=== PATIENT | female | born 1960 | race Caucasian/White ===

== ENCOUNTER → 2016-12-26 | Outpatient (CLI) | payer MEDICAID ==
[~2016-12-26] MED LIST: LINA5TAB PO; LORA0.5T PO; MAGN250T13 PO; METF500T4 PO; OMG1KC PO; PANT40TA2 PO; POTA-51 PO; SERT100T8 PO; SIMV40TA4 PO; TR1O15 TP
--- NOTE | 2016-12-26 12:37 | Diagnostic Imaging Report ---
INDICATION: Bilateral leg pain, right greater than left. Claudication symptoms. History of diabetes and tobacco use. TECHNIQUE: Segmental pulse pressures were performed of the upper and lower extremities. FINDINGS: Right brachial pressure: 154 mmHg Right ankle pressure: (DP) 179, ARANZA 1.11 Right ankle pressure: (PT) 190 mm Hg, ARANZA 1.18 Left brachial pressure: 161 mm Hg Left ankle pressure: (DP) 151, ARANZA 0.94 Left ankle pressure: (PT) 187 mm Hg, ARANZA 1.16 IMPRESSION: Ankle-brachial indices as above. Ankle-Brachial Index Diagnosis/Interpretation <=0.90 Peripheral Arterial Disease 0.91-0.99 Borderline 1.00-1.40 Normal >1.40 Concern for noncompressible arteries, (assoc with Diabetes Mellitus) Dictated by: Dictated on workstation # [id number]
== END ==
LOC: RAD 11:33
PROVIDERS: ATTEND Nurse Practitioner Family
DX: I73.9 Peripheral vascular disease, unspecified (principal); E11.9 Type 2 diabetes mellitus without complications; Z72.0 Tobacco use
CPT/HCPCS: 93922

== ENCOUNTER → 2017-04-21 | Outpatient (CLI) | payer MEDICARE, MEDICAID ==
--- NOTE | 2017-04-21 11:45 | Diagnostic Imaging Report ---
Bilateral diagnostic mammogram. INDICATION: Right breast pain. CAD is utilized. The current study was also evaluated with a Computer Aided Detection (CAD) system. No prior studies are available for comparison. FINDINGS: There is a 2.1 cm mass with suspicious calcifications and irregular borders seen in the posterior central aspect of the right breast in a slightly inferior and medial location. No other mass is identified in the right breast. No significantly enlarged axillary lymph nodes are seen. The left breast demonstrate scattered fibroglandular densities and benign-appearing calcifications or suspicious mass. IMPRESSION: A 2.1 cm mass in the posterior aspect of the right breast slightly inferior and medial to the central aspect, is highly suspicious for breast cancer. Ultrasound evaluation is pending. BI-RADS 0. ACR BI-RADS Category 0: Incomplete. (Needs additional imaging evaluation). Result letter will be mailed to the patient. Note: At least 10% of breast cancer is not imaged by mammography. Dictated by: Dictated on workstation # [id number]
--- NOTE | 2017-04-21 12:38 | Diagnostic Imaging Report ---
EXAMINATION: Right breast ultrasound. INDICATION: Right breast pain. Findings: The four-quadrant retroareolar region of the right breast were scanned. At 4:00 zone, 7 CM from the nipple there is an irregular hypoechoic mass with shadowing measuring 1.8 x 1.6 x 1.6 CM. It is associated with increased vascularity. This is highly suspicious for breast cancer. The 6:00 position demonstrates a simple cyst measuring 9 mm in length. No other breast mass is identified in the 4 quadrants. In the right axilla there are 2 slightly enlarged lymph nodes, the largest one measures 2 x 0.8 x 0.8 CM. These still have fatty hilum and etiology is uncertain. IMPRESSION: 1. A 1.8 cm right breast mass at 4:00 zone, 7 cm from the nipple highly suspicious for breast cancer. 2. Mildly enlarged nonspecific right axillary lymph nodes seen. 3. Ultrasound-guided biopsy of the right breast mass and of the enlarged right axillary lymph nodes are recommended. The findings and recommendations were discussed with the patient personally just before this dictation. BI-RADS 5 ACR BI-RADS Category 5: Highly suggestive of malignancy. Result letter will be mailed to the patient. Note: At least 10% of breast cancer is not imaged by mammography. Report was faxed to office of Joie Duran by nadira at 12:40 PM. Dictated by: Dictated on workstation # [id number]
== END ==
LOC: RAD 10:44
PROVIDERS: ATTEND Nurse Practitioner Family
DX: Z12.31 Encounter for screening mammogram for malignant neoplasm of breast (principal); N63 Unspecified lump in breast
CPT/HCPCS: 76641; 77066

== ENCOUNTER → 2017-04-24 | Outpatient (CLI) | payer MEDICARE, MEDICAID ==
[~2017-04-24] VITALS: Ht 160 cm; Wt 63.0 kg
[~2017-04-24] MED LIST changes: +LIDOCAINE 1% INJ 20 ML (XYLOCAINE) VIAL INJ ONE; +LIDOCAINE 1% INJ 20 ML (XYLOCAINE) VIAL ONE
[2017-04-24 09:50] VITALS: BP 121/78
[2017-04-24 10:40] VITALS: BP 120/72
--- NOTE | 2017-04-24 11:24 | Diagnostic Imaging Report ---
EXAMINATION: Ultrasound-guided biopsy of a breast mass. A metallic clip placed to leann biopsy site. INDICATION: right breast mass. CONSENT: Informed consent was obtained from the patient. The risks, benefits, potential complications and alternatives were reviewed and all questions answered to the patient's satisfaction. FINDINGS: Ultrasound images demonstrate a 4:00 right breast mass. PROCEDURE: After sterile preparation and draping, 1% lidocaine was utilized for local anesthesia. A 13-gauge guide needle was introduced under live ultrasound guidance to the level of the lesion. Good needle position was documented with ultrasound images. 14-gauge biopsy needle was utilized and core biopsies were performed. Multiple samples were obtained and sent to pathology. A metallic clip was placed to leann the site of the biopsy. A subsequent mammogram is performed and confirms the proper positioning of the clip. The patient tolerated the procedure well with no immediate complications. IMPRESSION: Successful ultrasound-guided core biopsy of 4:00 right breast mass. Dictated by: Dictated on workstation # [id number]
--- NOTE | 2017-04-24 11:27 | Diagnostic Imaging Report ---
EXAMINATION: US-guided core biopsy-right axilla, with a marking clip placement. INDICATION: Right axilla lymphadenopathy. Current history and physical and other medical records are reviewed prior to the procedure. CONSENT: Informed consent was obtained from the patient. The risks, benefits, potential complications and alternatives were reviewed and all questions answered to the patient's satisfaction. The patient's vital signs, cardiac rhythm, and pulse oximetry with observed throughout the procedure by qualified nursing personnel. Sedation/medications: none. FINDINGS: Mildly enlarged right axilla lymph nodes. PROCEDURE: After maximal sterile barrier technique preparation and draping, 1% lidocaine was utilized for local anesthesia. With the patient in supine position, and via anterior approach, a 17-gauge guide needle is introduced into the right axillary lymph node under live ultrasound guidance. After confirming adequate positioning with saved ultrasound images, multiple 18 gauge core biopsy specimens were obtained. Marking clip was and the right axillary lymph node site. The patient tolerated the procedure well with no immediate complications. IMPRESSION: Successful US-guided core biopsy of right axilla mildly enlarged lymph node. Dictated by: Dictated on workstation # [id number]
--- NOTE | 2017-04-24 21:15 | Diagnostic Imaging Report ---
EXAM: Right CC and lateral projection mammograms are performed. INDICATION: Documentation of clip positioning after ultrasound-guided biopsy of right breast mass and axillary lesion. FINDINGS / IMPRESSION: There is a biopsy clip well placed within the slightly medial and inferior posterior right breast mass. There is no clip seen in the axillary region which may indicate failure of clip deployment near the axillary lymph node or potentially relates to location of the lymph node outside the field of view. Pathology results are pending. Dictated by: Dictated on workstation # [id number]
== END ==
LOC: RAD 09:31
PROVIDERS: ATTEND Nurse Practitioner Family
DX: R92.8 Other abnormal and inconclusive findings on diagnostic imaging of breast (principal)
CPT/HCPCS: 19083; 19084

== ENCOUNTER → 2018-10-29 | Outpatient (CLI) | payer MEDICAID, MEDICARE ==
[~2018-10-29] MED LIST changes: +GADOBUTROL 7.5 MMOL/7.5 ML (GADAVIST) VIAL IV ONE; -LIDOCAINE 1% INJ 20 ML (XYLOCAINE) VIAL INJ ONE; -LIDOCAINE 1% INJ 20 ML (XYLOCAINE) VIAL ONE; +METF-397 PO; -METF500T4 PO
--- NOTE | 2018-10-29 10:07 | Diagnostic Imaging Report ---
PROCEDURE: MR imaging of the brain with and without contrast. TECHNIQUE: Multiplanar, multisequence MR imaging of the brain was performed with and without contrast. INDICATION: Memory loss. History of breast cancer. COMPARISON: None. FINDINGS: No abnormal intracranial signal or enhancement. Mild generalized cerebral and cerebellar parenchymal volume loss is age appropriate. No restricted water diffusion or hemosiderin deposition. Normal morphology including the major midline structures, sella, posterior fossa and cerebellar pontine angle. No hydrocephalus or extra-axial fluid collections. Normal intracranial flow voids. The orbits are unremarkable on this nondedicated exam. Fluid throughout the mastoids, right greater than left. The paranasal sinuses are clear. Normal bone marrow signal. IMPRESSION: 1. No acute intracranial MRI findings. 2. Age-appropriate mild parenchymal volume loss. 3. Bilateral mastoid effusions, right greater than left. Dictated by: Dictated on workstation # [id number]
== END ==
LOC: RAD 07:34
PROVIDERS: ATTEND Nurse Practitioner Family
DX: H74.8X3 Other specified disorders of middle ear and mastoid, bilateral (principal); G93.89 Other specified disorders of brain; R41.3 Other amnesia; Z85.3 Personal history of malignant neoplasm of breast
CPT/HCPCS: 70553

== ENCOUNTER 2020-04-30 13:25 | Emergency (ER) | payer MEDICARE ==
[~2020-04-30] VITALS: Ht 172 cm; Wt 61.0 kg
[~2020-04-30 13:25] MED LIST changes: -GADOBUTROL 7.5 MMOL/7.5 ML (GADAVIST) VIAL IV ONE; +SIMV40TA25 PO; -SIMV40TA4 PO
--- NOTE | 2020-04-30 13:59 | ED General ---
General Chief Complaint: Respiratory Problems Stated Complaint: SOA Nursing Triage Note: PT STATES HAVING COPD AND IS JUST HAVING AN EPISOPE, SOB FOR A WEEK WORSE THE LAST COUPLE DAYS Nursing Sepsis Screen: No Definite Risk Source of Information: Patient Exam Limitations: No Limitations History of Present Illness Date Seen by Provider: Apr 30, 2020 Time Seen by Provider: 13:48 Initial Comments Here with intermittent worsening shortness of breath over the last 2 weeks and worse over the last few days. Does have history of COPD and occasional exacerbations. Denies fever or chills. Denies nausea or vomiting. Has had 2 trips outside the house in the last 2 weeks including one to [place] in one to [place]. She does not wear a mask in the community because she did not know she could wear that over her oxygen tubing. Does not note any specific contact with COVID-19. Timing/Duration: 1 Week, Changing Over Time, Getting Worse Severity: Moderate Associated Systoms: No Chest Pain; Cough; No Fever/Chills, No Nausea/Vomiting; Shortness of Air, Weakness Allergies and Home Medications Allergies Coded Allergies: No Known Drug Allergies (Unverified , 06/12/15) Home Medications Linagliptin 5 Mg Tablet, 5 MG PO DAILY, (Reported) Lorazepam 0.5 Mg Tablet, 0.5 MG PO DAILY, (Reported) Magnesium Oxide 250 Mg Tablet, 250 MG PO DAILY, (Reported) Metformin HCl 500 Mg Tablet, 500 MG PO BID, (Reported) [place] 3 Polyunsat Fatty Acids 1,000 Mg Cap, 1,000 MG PO DAILY, (Reported) Pantoprazole Sodium 40 Mg Tablet.dr, 40 MG PO DAILY Prescribed by: ELADIA HOLLAND on 08/20/15 960 Potassium Chloride 20 Meq Tablet.er, 20 MEQ PO DAILY, (Reported) Sertraline HCl 100 Mg Tablet, 100 MG PO DAILY, (Reported) Simvastatin 40 Mg Tablet, 40 MG PO DAILY, (Reported) Patient Home Medication List Home Medication List Reviewed: Yes Review of Systems Review of Systems Constitutional: see HPI; No chills, No fever; malaise, weakness EENTM: nose congestion; No throat pain Respiratory: cough, dyspnea on exertion, short of breath, wheezing Cardiovascular: chest pain (burning in her chest after coughing); No palpitations Gastrointestinal: No abdominal pain, No nausea, No vomiting Genitourinary: no symptoms reported Musculoskeletal: No muscle pain; muscle weakness Skin: no symptoms reported All Other Systems Reviewed Negative Unless Noted: Yes Past Ksdsahb-Wtnzze-Wetfpn Hx Past Med/Social Hx: Reviewed Nursing Past Med/Soc Hx Patient Social History Alcohol Use: Denies Use Recreational Drug Use: No Smoking Status: Current Everyday Smoker Type Used: Cigarettes Recent Foreign Travel: No Contact w/Someone Who Travel: No Recent Infectious Disease Expo: No Recent Hopitalizations: No Physical Abuse: No Sexual Abuse: No Mistreated: No Fear: No Past Medical History Surgeries: Yes (HERNIA, BI LAT MASECTOMY) Abdominal, Breast, Tubal Ligation Respiratory: Yes COPD Cardiac: Yes High Cholesterol, Hypertension, Syncope Neurological: Yes (VASOVAGAL SYNCOPE VS SEIZURE) Headaches /Migraines 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, 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 0.0oz. [id number]; 20.00 BMI Method:Stated General Appearance: No Apparent Distress, WD/WN HEENT: PERRL/EOMI, Pharynx Normal Neck: Non Tender, Supple Respiratory: Decreased Breath Sounds, Expiration, Wheezing Cardiovascular: Regular Rate, Rhythm, No Murmur Back: Normal Inspection, No CVA Tenderness, No Vertebral Tenderness Extremity: Normal Range of Motion, Non Tender Neurologic/Psychiatric: Alert, Oriented x3 Skin: normal color, warm/dry Focused Exam Lactate Level 04/30/20 14:00: Lactic Acid Level 1.53 Lactic Acid Level Laboratory Tests Test 04/30/20 14:00 Lactic Acid Level 1.53 MMOL/L (0.50-2.00) Progress/Results/Core Measures Suspected Sepsis Recent Fever Within 48 Hours: No Infection Criteria Present: None New/Unexplained Altered Menta: No Sepsis Screen: No Definite Risk SIRS Temperature: Pulse: 63 Respiratory Rate: 22 Laboratory Tests 04/30/20 14:00: White Blood Count 12.5H Blood Pressure 146 /65 Mean: 92 04/30/20 14:00: Lactic Acid Level 1.53 Laboratory Tests 04/30/20 14:00: Creatinine 0.79, INR Comment 1.0, Platelet Count 275, Total Bilirubin 0.3 Results/Orders Lab Results Laboratory Tests Test 04/30/20 14:00 Range/Units White Blood Count 12.5 H 4.3-11.0 10^3/uL Red Blood Count 4.90 3.80-5.11 10^6/uL Hemoglobin 13.3 11.5-16.0 g/dL Hematocrit 42 35-52 % Mean Corpuscular Volume 85 80-99 fL Mean Corpuscular Hemoglobin 27 25-34 pg Mean Corpuscular Hemoglobin Concent 32 32-36 g/dL Red Cell Distribution Width 14.2 10.0-14.5 % Platelet Count 275 130-400 10^3/uL Mean Platelet Volume 11.2 9.0-12.2 fL Immature Granulocyte % (Auto) 0 % Neutrophils (%) (Auto) 62 42-75 % Lymphocytes (%) (Auto) 28 12-44 % Monocytes (%) (Auto) 7 0-12 % Eosinophils (%) (Auto) 2 0-10 % Basophils (%) (Auto) 0 0-10 % Neutrophils # (Auto) 7.7 1.8-7.8 10^3/uL Lymphocytes # (Auto) 3.5 1.0-4.0 10^3/uL Monocytes # (Auto) 0.9 0.0-1.0 10^3/uL Eosinophils # (Auto) 0.3 0.0-0.3 10^3/uL Basophils # (Auto) 0.1 0.0-0.1 10^3/uL Immature Granulocyte # (Auto) 0.0 0.0-0.1 10^3/uL Erythrocyte Sedimentation Rate 17 0-30 MM/HR Prothrombin Time 13.2 12.2-14.7 SEC INR Comment 1.0 0.8-1.4 Activated Partial Thromboplast Time 28 24-35 SEC D-Dimer < 0.27 0.00-0.49 UG/ML Sodium Level 140 135-145 MMOL/L Potassium Level 4.2 3.6-5.0 MMOL/L Chloride Level 98 98-107 MMOL/L Carbon Dioxide Level 30 21-32 MMOL/L Anion Gap 12 5-14 MMOL/L Blood Urea Nitrogen 13 7-18 MG/DL Creatinine 0.79 0.60-1.30 MG/DL Estimat Glomerular Filtration Rate > 60 BUN/Creatinine Ratio 16 Glucose Level 72 70-105 MG/DL Lactic Acid Level 1.53 0.50-2.00 MMOL/L Calcium Level 10.2 H 8.5-10.1 MG/DL Corrected Calcium 8.5-10.1 MG/DL Total Bilirubin 0.3 0.1-1.0 MG/DL Aspartate Amino Transf (AST/SGOT) 19 5-34 U/L Alanine Aminotransferase (ALT/SGPT) 25 0-55 U/L Alkaline Phosphatase 66 40-136 U/L C-Reactive Protein High Sensitivity 0.13 0.00-0.50 MG/DL Total Protein 8.1 6.4-8.2 GM/DL Albumin 4.8 H 3.2-4.5 GM/DL Procalcitonin 0.02 <0.10 NG/ML My Orders Orders - JORDON REGALADO MD Cbc With Automated Diff (04/30/20 14:00) Comprehensive Metabolic Panel (04/30/20 14:00) Blood Culture (04/30/20 14:00) Sputum Culture (04/30/20 14:00) Urinalysis (04/30/20 14:00) Urine Culture (04/30/20 14:00) Protime With Inr (04/30/20:00) Partial Thromboplastin Time (04/30/20 14:00) Chest 1 View, Ap/Pa Only (04/30/20 14:00) Ed Iv/Invasive Line Start (04/30/20 14:00) Vital Signs Adult Sepsis Patie Q15M (04/30/20 14:00) O2 (04/30/20 14:00) Remove Rings In Anticipation O (04/30/20 14:00) Lactic Acid Analyzer (04/30/20 14:00) Fibrin Degradation Products (04/30/20 14:00) Procalcitonin (Pct) (04/30/20 14:00) Hs C Reactive Protein (04/30/20 14:00) Erythrocyte Sedimentation Rate (04/30/20 14:00) Albuterol Inhaler (Ventolin Hfa) (04/30/20 14:00) Lactated Ringers (Lr 1000 Ml Iv Solution (04/30/20 14:02) Prednisone Tablet (Deltasone Tablet) (04/30/20 15:15) Medications Given in ED Current Medications Medications Dose Ordered Sig/Patrick Route Start Time Stop Time Status Last Admin Dose Admin Lactated Ringer's 1,000 ml @ 0 mls/hr Q0M ONCE IV 04/30/20 14:02 04/30/20 14:03 DC 04/30/20 14:09 1,000 MLS/HR Vital Signs/I&O 04/30/20 04/30/20 13:35 13:55 Temp 36.1 Pulse 63 Resp 22 B/P (MAP) 146/65 (92) Pulse Ox 95 95 O2 Delivery Nasal Cannula Nasal Cannula O2 Flow Rate 3.00 3.00 Capillary Refill : Less Than 3 Seconds Blood Pressure Mean: 92 Progress Note : Progress Note Seen and evaluated. IV, labs, chest x-ray, UA, blood cultures and lactic acid ordered. Albuterol inhaler 4 puffs via chamber ordered. LR 1 L bolus. Monitor patient. 1508: Improved after albuterol. No acute findings on xray. No i ndication of COVID-19. Prednisone 40 mg PO ordered.. Discharge home with return precautions. Patient verbalized understanding of instructions and agreement with plan. Departure Impression Primary Impression: COPD with acute exacerbation Disposition: 01 HOME, SELF-CARE Condition: Improved Departure-Patient Inst. Decision time for Depature: 15:13 Referrals: JEFFERSON AQUINO (PCP/Family) Primary Care Physician Patient Instructions: Chronic Obstructive Pulmonary Disease (COPD) (DC) Add. Discharge Instructions: All discharge instructions reviewed with patient and/or family. Voiced understanding. Take medications as directed. Follow up with your doctor in a few days for recheck. Return for worse pain, fever, vomiting, breathing problems or other concerns as needed. Scripts Prednisone (Prednisone) 20 Mg Tab 40 MG PO DAILY, #8 TAB 0 Refills Prov: JORDON REGALADO MD 04/30/20 JORDON REGALADO MD Apr 30, 2020 13:59
[2020-04-30] MEDS ORDERED: RT-ALBUTEROL INHALER HFA (VENTOLIN HFA) 18 GM IH SCH (14:00)
[2020-04-30] MEDS ORDERED: LACTATED RINGERS 1,000 ML IV ONE (14:02)
[2020-04-30 14:15] LABS: BASOPHILS # (AUTO) 0.1 10^3/uL (0.0-0.1); BASOPHILS % (AUTO) 0 % (0-10); EOSINOPHILS # (AUTO) 0.3 10^3/uL (0.0-0.3); EOSINOPHILS % (AUTO) 2 % (0-10); HEMATOCRIT 42 % (35-52); HEMOGLOBIN 13.3 g/dL (11.5-16.0); LYMPHOCYTES # (AUTO) 3.5 10^3/uL (1.0-4.0); LYMPHOCYTES % (AUTO) 28 % (12-44); MEAN CORPUSCULAR HEMOGLOBIN 27 pg (25-34); MEAN CORPUSCULAR HGB CONC 32 g/dL (32-36); MEAN CORPUSCULAR VOLUME 85 fL (80-99); MEAN PLATELET VOLUME 11.2 fL (9.0-12.2); MONOCYTES # (AUTO) 0.9 10^3/uL (0.0-1.0); MONOCYTES % (AUTO) 7 % (0-12); NEUTROPHILS # (AUTO) 7.7 10^3/uL (1.8-7.8); NEUTROPHILS % (AUTO) 62 % (42-75); PLATELET COUNT 275 10^3/uL (130-400); WHITE BLOOD COUNT 12.5 10^3/uL (4.3-11.0)
[2020-04-30 14:26] LABS: ALBUMIN 4.8 GM/DL (3.2-4.5); CHLORIDE 98 MMOL/L (98-107); POTASSIUM 4.2 MMOL/L (3.6-5.0); SODIUM 140 MMOL/L (135-145)
[2020-04-30 14:27] LABS: CALCIUM 10.2 MG/DL (8.5-10.1)
[2020-04-30 14:28] LABS: GLUCOSE 72 MG/DL (70-105)
[2020-04-30 14:29] LABS: TOTAL PROTEIN 8.1 GM/DL (6.4-8.2)
[2020-04-30 14:30] LABS: BILIRUBIN,TOTAL 0.3 MG/DL (0.1-1.0); CARBON DIOXIDE 30 MMOL/L (21-32)
[2020-04-30 14:32] LABS: ALKALINE PHOSPHATASE 66 U/L (40-136); CREATININE SERUM 0.79 MG/DL (0.60-1.30); GFR ESTIMATED > 60
[2020-04-30 14:33] LABS: BUN/CREATININE RATIO 16
[2020-04-30 14:35] LABS: ALANINE AMINOTRANSFERASE 25 U/L (0-55)
[2020-04-30 14:41] LABS: ERYTHROCYTE SEDIMENTATION RATE 17 MM/HR (0-30)
--- NOTE | 2020-04-30 14:42 | Diagnostic Imaging Report ---
CHEST 1 VIEW, AP/PA ONLY Indication: Sepsis Comparison: 08/12/2015 Findings: No focal airspace disease in the visualized lungs. Please note that the posterior lower lobes are poorly evaluated by portable radiography. No pleural effusion or pneumothorax. Normal cardiomediastinal silhouette. Impression: 1. No acute cardiopulmonary process by portable radiography. Dictated by: Dictated on workstation # [id number]
[2020-04-30 14:50] LABS: PARTIAL THROMBOPLASTIN TIME 28 SEC (24-35); PROTHROMBIN TIME PATIENT 13.2 SEC (12.2-14.7)
[2020-04-30 14:51] LABS: FIBRIN DEGRADATION PRODUCTS < 0.27 UG/ML (0.00-0.49)
[2020-04-30] MEDS ORDERED: predniSONE 20 MG TAB PO ONE (15:15)
[2020-04-30] MEDS ORDERED: PRD20T PO (15:23)
[2020-04-30 15:31] VITALS: BP 115/64
== END 2020-04-30 15:31 | disposition home or self-care (01) ==
LOC: EDUNIT# 13:25 → ER 13:27
DX: J44.1 Chronic obstructive pulmonary disease with (acute) exacerbation (principal); I10 Essential (primary) hypertension; K21.9 Gastro-esophageal reflux disease without esophagitis; E11.9 Type 2 diabetes mellitus without complications; E78.00 Pure hypercholesterolemia, unspecified; F41.9 Anxiety disorder, unspecified; F32.9 Major depressive disorder, single episode, unspecified; F17.210 Nicotine dependence, cigarettes, uncomplicated; Z85.3 Personal history of malignant neoplasm of breast; Z79.84 Long term (current) use of oral hypoglycemic drugs
CPT/HCPCS: 36415; 71045; 80053; 83605; 84145; 85025; 85379; 85610; 85652; 85730; 86141; 87040; 87070; 87205

== ENCOUNTER 2020-11-13 19:20 | Emergency (ER) | payer MEDICARE ==
[~2020-11-13] VITALS: Ht 162.5 cm; Wt 61.0 kg
[~2020-11-13 19:20] MED LIST changes: +PRD20T PO; +SERT-414 PO; -SERT100T8 PO
[2020-11-13 20:15] LABS: BASOPHILS # (AUTO) 0.1 10^3/uL (0.0-0.1); BASOPHILS % (AUTO) 0 % (0-10); EOSINOPHILS # (AUTO) 0.6 10^3/uL (0.0-0.3); EOSINOPHILS % (AUTO) 4 % (0-10); HEMATOCRIT 42 % (35-52); HEMOGLOBIN 13.1 g/dL (11.5-16.0); LYMPHOCYTES # (AUTO) 4.4 10^3/uL (1.0-4.0); LYMPHOCYTES % (AUTO) 27 % (12-44); MEAN CORPUSCULAR HEMOGLOBIN 26 pg (25-34); MEAN CORPUSCULAR HGB CONC 32 g/dL (32-36); MEAN CORPUSCULAR VOLUME 83 fL (80-99); MEAN PLATELET VOLUME 11.2 fL (9.0-12.2); MONOCYTES # (AUTO) 1.1 10^3/uL (0.0-1.0); MONOCYTES % (AUTO) 7 % (0-12); NEUTROPHILS # (AUTO) 9.9 10^3/uL (1.8-7.8); NEUTROPHILS % (AUTO) 61 % (42-75); PLATELET COUNT 297 10^3/uL (130-400); WHITE BLOOD COUNT 16.2 10^3/uL (4.3-11.0)
[2020-11-13 20:36] LABS: INR 0.9 (0.8-1.4); PROTHROMBIN TIME PATIENT 12.6 SEC (12.2-14.7)
[2020-11-13 20:42] LABS: ALANINE AMINOTRANSFERASE 28 U/L (0-55); ALBUMIN 4.7 GM/DL (3.2-4.5); ALKALINE PHOSPHATASE 70 U/L (40-136); BILIRUBIN,TOTAL 0.2 MG/DL (0.1-1.0); BUN/CREATININE RATIO 12; CALCIUM 10.1 MG/DL (8.5-10.1); CARBON DIOXIDE 24 MMOL/L (21-32); CHLORIDE 97 MMOL/L (98-107); CREATININE SERUM 1.03 MG/DL (0.60-1.30); GFR ESTIMATED 54; GLUCOSE 125 MG/DL (70-105); MAGNESIUM 1.4 MG/DL (1.6-2.4); POTASSIUM 3.8 MMOL/L (3.6-5.0); SODIUM 137 MMOL/L (135-145); TOTAL PROTEIN 8.3 GM/DL (6.4-8.2)
[2020-11-13] MEDS ORDERED: LACTATED RINGERS 1,000 ML IV ONE ×2 (20:45→21:00)
--- NOTE | 2020-11-13 20:51 | Diagnostic Imaging Report ---
INDICATION: Sepsis. COMPARISON: 04/30/2020. FINDINGS: There are no findings of pneumonia or failure. The lungs are clear although hyperexpanded in a symmetric fashion. The heart size, configuration and pulmonary vascularity all appear normal. No free air beneath the diaphragms. No effusion or pneumothorax. IMPRESSION: Clear hyperexpanded lungs with bilateral air trapping, chronic. No other significant finding. Dictated by: Dictated on workstation # [id number]
[2020-11-13 20:59] LABS: BASOPHILS % (MANUAL) 1 %; EOSINOPHILS % (MANUAL) 3 %; LYMPHOCYTES % (MANUAL) 29 %; MONOCYTES % (MANUAL) 1 %; NEUTROPHILS % (MANUAL) 66 %; RBC MORPH NORMAL
[2020-11-13] MEDS ORDERED: cefTRIAXone FOR IV USE 1,000 MG in WATER (STERILE) FOR INJECTION 10 ML IV ONE (21:00)
[2020-11-13 21:26] LABS: BILIRUBIN,URINE NEGATIVE (NEGATIVE); CLARITY,URINE CLEAR; COLOR,URINE YELLOW; GLUCOSE, URINE (UA) NEGATIVE (NEGATIVE); KETONES,URINE TRACE (NEGATIVE); LEUKOCYTE ESTERASE ,URINE NEGATIVE (NEGATIVE); NITRITE,URINE NEGATIVE (NEGATIVE); PH,URINE 5.5 (5-9); PROTEIN,URINE NEGATIVE (NEGATIVE)
[2020-11-13 21:34] LABS: BACTERIA,URINE TRACE /HPF; SQUAMOUS EPITHELIAL CELL,UR 0-2 /HPF
[2020-11-13 21:35] LABS: HYALINE CASTS, URINE 25-50 /LPF
[2020-11-13] MEDS ORDERED: MAGNESIUM OXIDE (MAG-OX)400 MG TAB PO ONE (22:45)
--- NOTE | 2020-11-13 22:50 | ED General ---
General Chief Complaint: General Problems/Pain Stated Complaint: LOW BP;HIGH HR;CONFUSION Nursing Triage Note: states "my head feels heavy, i have a burning in my chest when i cough. i just went to the doctor monday or ," states her blood pressure was low adn her meds were changed. 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 room air saturation is 90%. verbalizes just finished a round of antibiotic for an abcess on her leg. c/o cough,, buring in chest with 0/10 pain, faint feeling, and just "not feeling right". Nursing Sepsis Screen: No Definite Risk Source of Information: Patient Exam Limitations: No Limitations History of Present Illness Date Seen by Provider: Nov 13, 2020 Time Seen by Provider: 19:20 Initial Comments This 60-year-old woman presents to the emergency room by private vehicle with vague complaint of "not feeling right" and having a sensation of heaviness behind her eyes that she describes as being similar to orthostatic hypotension. She reports visiting her primary care provider a day or 2 ago and having a lower blood pressure at that time. She reports 2 of her antihypertensives were stopped as a result of that visit. She was feeling worse today while walking around at [facility] without her oxygen. Her oxygen tanks are low and she is trying to conserve them. She normally wears 2 L continuously. She is also sitting in the waiting room without oxygen on. Oxygen saturation was 90% on arrival to the room. She is not in any distress. She had an episode of diarrhea couple days ago which has now resolved. She also had a similar episode of feeling lightheaded and "not right" a couple of days ago. She denies any Covid exposures. She has received her influenza vaccine but not the Covid vaccines. Allergies and Home Medications Allergies Coded Allergies: No Known Drug Allergies (Unverified , 06/12/15) Home Medications Linagliptin 5 Mg Tablet, 5 MG PO DAILY, (Reported) Lorazepam 0.5 Mg Tablet, 0.5 MG PO DAILY, (Reported) Magnesium Oxide 250 Mg Tablet, 250 MG PO DAILY, (Reported) Magnesium Oxide 400 Mg Tablet, 400 MG PO BID Prescribed by: JACKIE CONNOLLY on 11/13/20 2300 Metformin HCl 500 Mg Tablet, 500 MG PO BID, (Reported) [place] 3 Polyunsat Fatty Acids 1,000 Mg Cap, 1,000 MG PO DAILY, (Reported) Pantoprazole Sodium 40 Mg Tablet.dr, 40 MG PO DAILY Prescribed by: ELADIA HOLLAND on 08/20/15 1753 Potassium Chloride 20 Meq Tablet.er, 20 MEQ PO DAILY, (Reported) Prednisone 20 Mg Tab, 40 MG PO DAILY Prescribed by: JORDON REGALADO on 04/30/20 1523 Sertraline HCl 100 Mg Tablet, 100 MG PO DAILY, (Reported) Simvastatin 40 Mg Tablet, 40 MG PO DAILY, (Reported) Patient Home Medication List Home Medication List Reviewed: Yes Review of Systems Review of Systems Constitutional: see HPI EENTM: see HPI Respiratory: see HPI Cardiovascular: no symptoms reported Gastrointestinal: see HPI Genitourinary: no symptoms reported : No Musculoskeletal: no symptoms reported Skin: no symptoms reported Psychiatric/Neurological: No Symptoms Reported Hematologic/Lymphatic: No Symptoms Reported Past Aupdhip-Hujohn-Qesquf Hx Past Med/Social Hx: Reviewed Nursing Past Med/Soc Hx Patient Social History Alcohol Use: Denies Use Smoking Status: Current Everyday Smoker Type Used: Cigarettes Recent Infectious Disease Expo: No Recent Hopitalizations: No Immunizations Up To Date PED Vaccines UTD: Yes Past Medical History Surgeries: Yes (HERNIA, BI LAT MASECTOMY) Abdominal, Breast, Tubal Ligation Respiratory: Yes (Uses oxygen at 2 L continuously) COPD Cardiac: Yes High Cholesterol, Hypertension, Syncope Neurological: Yes (VASOVAGAL SYNCOPE VS SEIZURE) Headaches /Migraines : 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, 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 Genitourinary: No Gastrointestinal: Yes (ESOPHAGEAL SPASMS) Musculoskeletal: Yes Arthritis Endocrine: Yes Diabetes, Non-Insulin dep HEENT: No Cancer: Yes Breast Did You Recieve Any Treatments: Yes What Type of Treatment Did You: Surgical Intervention Psychosocial: Yes Anxiety, Depression Integumentary: Yes Psoriasis Blood Disorders: No Physical Exam-Suspected Sepsis Physical Exam Vital Signs Vital Signs - First Documented 11/13/20 19:35 Temp 36.8 Pulse 97 Resp 18 B/P (MAP) 110/81 (91) Pulse Ox 97 O2 Delivery Nasal Cannula Capillary Refill : Less Than 3 Seconds Blood Pressure Mean: 91 Height, Weight, BMI Height: 5'3.00" Weight: 139lbs. 0.0oz. [id number]; 23.00 BMI Method:Stated General Appearance: No Apparent Distress, WD/WN, Thin HEENT: PERRL/EOMI, Normal ENT Inspection, Other (Mucous membranes somewhat dry) Neck: Normal Inspection; No JVD Respiratory: Lungs Clear, Normal Breath Sounds, No Accessory Muscle Use Cardiovascular: No Edema, No Murmur, Tachycardia (Mild, regular) Gastrointestinal: Normal Bowel Sounds, Non Tender, Soft Extremity: Normal Inspection, No Pedal Edema Neurologic/Psychiatric: Alert, Oriented x3, No Motor/Sensory Deficits, Normal Mood/Affect, advertising consultant II-XII Norm as Tested Skin: normal color, warm/dry Focused Exam Lactate Level 11/13/20 19:50: Lactic Acid Level 3.64*H 11/13/20 21:50: Lactic Acid Level 3.33*H Lactic Acid Level Laboratory Tests Test 11/13/20 19:50 11/13/20 21:50 Lactic Acid Level 3.64 MMOL/L (0.50-2.00) *H 3.33 MMOL/L (0.50-2.00) *H Progress/Results/Core Measures Suspected Sepsis Recent Fever Within 48 Hours: No Infection Criteria Present: None New/Unexplained Altered Menta: Yes Sepsis Screen: No Definite Risk SIRS Temperature: Pulse: 97 Respiratory Rate: 18 Laboratory Tests 11/13/20 19:50: White Blood Count 16.2H Blood Pressure 110 /81 Mean: 91 11/13/20 19:50: Lactic Acid Level 3.64*H 11/13/20 21:50: Lactic Acid Level 3.33*H Laboratory Tests 11/13/20 19:50: Creatinine 1.03, INR Comment 0.9, Platelet Count 297, Total Bilirubin 0.2 Results/Orders Lab Results Laboratory Tests Test 11/13/20 19:49 11/13/20 19:50 11/13/20 21:15 11/13/20 21:50 Range/Units Coronavirus 2019 (MICHELLE) Not Detected Not Detecte White Blood Count 16.2 H 4.3-11.0 10^3/uL Red Blood Count 5.04 3.80-5.11 10^6/uL Hemoglobin 13.1 11.5-16.0 g/dL Hematocrit 42 35-52 % Mean Corpuscular Volume 83 80-99 fL Mean Corpuscular Hemoglobin 26 25-34 pg Mean Corpuscular Hemoglobin Concent 32 32-36 g/dL Red Cell Distribution Width 15.9 H 10.0-14.5 % Platelet Count 297 130-400 10^3/uL Mean Platelet Volume 11.2 9.0-12.2 fL Immature Granulocyte % (Auto) 1 % Neutrophils (%) (Auto) 61 42-75 % Lymphocytes (%) (Auto) 27 12-44 % Monocytes (%) (Auto) 7 0-12 % Eosinophils (%) (Auto) 4 0-10 % Basophils (%) (Auto) 0 0-10 % Neutrophils # (Auto) 9.9 H 1.8-7.8 10^3/uL Lymphocytes # (Auto) 4.4 H 1.0-4.0 10^3/uL Monocytes # (Auto) 1.1 H 0.0-1.0 10^3/uL Eosinophils # (Auto) 0.6 H 0.0-0.3 10^3/uL Basophils # (Auto) 0.1 0.0-0.1 10^3/uL Immature Granulocyte # (Auto) 0.1 0.0-0.1 10^3/uL Neutrophils % (Manual) 66 % Lymphocytes % (Manual) 29 % Monocytes % (Manual) 1 % Eosinophils % (Manual) 3 % Basophils % (Manual) 1 % Blood Morphology Comment NORMAL Prothrombin Time 12.6 12.2-14.7 SEC INR Comment 0.9 0.8-1.4 Activated Partial Thromboplast Time 28 24-35 SEC Sodium Level 137 135-145 MMOL/L Potassium Level 3.8 3.6-5.0 MMOL/L Chloride Level 97 L 98-107 MMOL/L Carbon Dioxide Level 24 21-32 MMOL/L Anion Gap 16 H 5-14 MMOL/L Blood Urea Nitrogen 12 7-18 MG/DL Creatinine 1.03 0.60-1.30 MG/DL Estimat Glomerular Filtration Rate 54 BUN/Creatinine Ratio 12 Glucose Level 125 H 70-105 MG/DL Lactic Acid Level 3.64 *H 3.33 *H 0.50-2.00 MMOL/L Calcium Level 10.1 8.5-10.1 MG/DL Corrected Calcium 8.5-10.1 MG/DL Magnesium Level 1.4 L 1.6-2.4 MG/DL Total Bilirubin 0.2 0.1-1.0 MG/DL Aspartate Amino Transf (AST/SGOT) 26 5-34 U/L Alanine Aminotransferase (ALT/SGPT) 28 0-55 U/L Alkaline Phosphatase 70 40-136 U/L C-Reactive Protein High Sensitivity 0.11 0.00-0.50 MG/DL Total Protein 8.3 H 6.4-8.2 GM/DL Albumin 4.7 H 3.2-4.5 GM/DL Urine Color YELLOW Urine Clarity CLEAR Urine pH 5.5 5-9 Urine Specific [place] 1.025 H 1.016-1.022 Urine Protein NEGATIVE NEGATIVE Urine Glucose (UA) NEGATIVE NEGATIVE Urine Ketones TRACE H NEGATIVE Urine Nitrite NEGATIVE NEGATIVE Urine Bilirubin NEGATIVE NEGATIVE Urine Urobilinogen 1.0 < = 1.0 MG/DL Urine Leukocyte Esterase NEGATIVE NEGATIVE Urine RBC (Auto) NEGATIVE NEGATIVE Urine RBC NONE /HPF Urine WBC NONE /HPF Urine Squamous Epithelial Cells 0-2 /HPF Urine Crystals NONE /LPF Urine Bacteria TRACE /HPF Urine Casts PRESENT /LPF Urine Hyaline Casts 25-50 H /LPF Urine Mucus NEGATIVE /LPF Urine Culture Indicated CULTURE PENDING Micro Results Microbiology 11/13/20 Influenza Types A,B Antigen (CONNER) - Final, Complete My Orders Orders - JCAKIE HOLLAND MD Cbc With Automated Diff (11/13/20 19:23) Comprehensive Metabolic Panel (11/13/20 19:23) Blood Culture (11/13/20 19:23) Sputum Culture (11/13/20 19:23) Urinalysis (11/13/20 19:23) Urine Culture (11/13/20 19:23) Protime With Inr (11/13/20 19:23) Partial Thromboplastin Time (11/13/20 19:23) Chest 1 View, Ap/Pa Only (11/13/20 19:23) Ed Iv/Invasive Line Start (11/13/20 19:23) Ed Iv/Invasive Line Start (11/13/20 19:23) Vital Signs Adult Sepsis Patie Q15M (11/13/20 19:23) O2 (11/13/20 19:23) Remove Rings In Anticipation O (11/13/20 19:23) Lactic Acid Analyzer (11/13/20 19:23) Hs C Reactive Protein (11/13/20 19:45) Magnesium (11/13/20 19:45) Manual Differential (11/13/20 19:50) Lactated Ringers (Lr 1000 Ml Iv Solution (11/13/20 20:45) Influenza A And B Antigens (11/13/20 20:45) Covid 19 Inhouse Test (11/13/20 20:45) Ceftriaxone For Iv Use (Rocephin For I (11/13/20 21:00) Lactated Ringers (Lr 1000 Ml Iv Solution (11/13/20 21:00) Magnesium Oxide Tablet (Mag Ox Tablet) (11/13/20 22:45) Medications Given in ED Current Medications Medications Dose Ordered Sig/Patrick Route Start Time Stop Time Status Last Admin Dose Admin Ceftriaxone Sodium 1000 mg/ Sterile Water 10 ml @ 200 mls/hr ONCE ONCE IV 11/13/20 21:00 11/13/20 21:02 DC 11/13/20 21:02 200 MLS/HR Lactated Ringer's 1,000 ml @ 0 mls/hr Q0M ONCE IV 11/13/20 20:45 11/13/20 20:46 DC 11/13/20 21:02 1,000 MLS/HR Lactated Ringer's 1,000 ml @ 0 mls/hr Q0M ONCE IV 11/13/20 21:00 11/13/20 21:01 DC 11/13/20 22:09 1,000 MLS/HR Magnesium Oxide 400 mg ONCE ONCE PO 11/13/20 22:45 11/13/20 22:47 DC 11/13/20 22:46 400 MG Vital Signs/I&O 11/13/20 19:35 Temp 36.8 Pulse 97 Resp 18 B/P (MAP) 110/81 (91) Pulse Ox 97 O2 Delivery Nasal Cannula Capillary Refill : Less Than 3 Seconds Blood Pressure Mean: 91 Progress Note : Progress Note Septic work-up was pursued as patient was hypotensive and tachycardic. Lactic acid was elevated but no source of infection was identified. WBC was elevated but CRP was normal. There was no left shift. Lactic acidosis was determined to be from hypovolemia, probably caused by her diarrhea, rather than sepsis. Influenza and Covid screening swabs were also negative. Patient received 2 L of LR and was feeling much improved. Her blood pressure and heart rate normalized. Magnesium was found to be low as well. A dose of oral magnesium was given in the ER followed by prescription. Lactic acidosis was trending down on the repeat draw. Patient also ambulated outside of the house and at [facility] without her oxygen which may have contributed to her symptoms and abnormal labs. She was strongly encouraged to obtain a Covid vaccination and observe social distancing and masking. She is advised to use her oxygen at home until she can get her portable tanks filled. Return precautions were given. Patient did receive a dose of Rocephin after noting leukocytosis and lactic acidosis prior to the results of the urinalysis. Patient is advised to follow-up with her primary care provider next week. Diagnostic Imaging Diagonstic Imaging: Xray Plain Films/CT/US/NM/MRI: chest Comments Chest x-ray viewed by me and report reviewed. See report below: NAME: AN ZAZUETA [facility] REC#: [id number] PT STATUS: REG ER : 1960 PHYSICIAN: JACKIE HOLLAND MD ADMIT DATE: 11/13/20/ER Signed Date of Exam:11/13/20 CHEST 1 VIEW, AP/PA ONLY INDICATION: Sepsis. COMPARISON: 04/30/2020. FINDINGS: There are no findings of pneumonia or failure. The lungs are clear although hyperexpanded in a symmetric fashion. The heart size, configuration and pulmonary vascularity all appear normal. No free air beneath the diaphragms. No effusion or pneumothorax. IMPRESSION: Clear hyperexpanded lungs with bilateral air trapping, chronic. No other significant finding. Dictated by: Dictated on workstation # [id number] Dict: 11/13/202046 Trans: 11/13/202050 [facility] [id number] Interpreted by: ESTHER GILLILAND Electronically signed by: ESTHER GILLILAND 11/13/202050 Departure Impression Primary Impression: Hypovolemia Additional Impressions: Hypomagnesemia Lightheadedness COPD with acute exacerbation Hypotension Qualified Codes: I95.89 - Other hypotension; E86.1 - Hypovolemia Disposition: 01 HOME, SELF-CARE Condition: Improved Departure-Patient Inst. Decision time for Depature: 22:56 Referrals: JEFFERSON AQUINO (PCP/Family) Primary Care Physician Patient Instructions: Chronic Obstructive Pulmonary Disease (COPD) (DC) Add. Discharge Instructions: Drink plenty of clear liquids to stay well-hydrated. Take magnesium for the next 5 days as prescribed. Use your oxygen as much as possible and get your portable canisters refilled as soon as possible. Follow-up with your primary care provider next week. Call with questions or concerns. Return to the ER if you have worsening symptoms. You are encouraged to obtain the COVID-19 vaccine as soon as possible. Continue to maintain COVID-19 precautions including wearing a mask and social distancing. All discharge instructions reviewed with patient and/or family. Voiced understanding. Scripts Magnesium Oxide (Magnesium Oxide) 400 Mg Tablet 400 MG PO BID, #10 TAB Prov: JACKIE HOLLAND MD 11/13/20 Copy Copies To 1: GERA LOPES JOSHUA T MD Nov 13, 2020 22:50
[2020-11-13] MEDS ORDERED: MAGN400T8 PO (23:00)
[2020-11-13 23:05] VITALS: BP 137/57
== END 2020-11-13 23:09 | disposition home or self-care (01) ==
LOC: EDUNIT# 19:20 → ER 19:22
DX: E86.1 Hypovolemia (principal); E83.42 Hypomagnesemia; R42 Dizziness and giddiness; J44.1 Chronic obstructive pulmonary disease with (acute) exacerbation; I95.9 Hypotension, unspecified; I10 Essential (primary) hypertension; E78.00 Pure hypercholesterolemia, unspecified; E11.9 Type 2 diabetes mellitus without complications; F41.9 Anxiety disorder, unspecified; F32.9 Major depressive disorder, single episode, unspecified; F17.210 Nicotine dependence, cigarettes, uncomplicated; Z20.822 Contact with and (suspected) exposure to COVID-19; Z79.52 Long term (current) use of systemic steroids; Z79.84 Long term (current) use of oral hypoglycemic drugs
CPT/HCPCS: 51702; 71045; 80053; 81000; 83605; 83735; 85007; 85027; 85610; 85730; 86141; 87040; 87088; 87804; 99284; U0002; 36415; 87635

== ENCOUNTER 2020-12-09 14:20 | Inpatient (IN) | payer MEDICARE ==
[~2020-12-09] VITALS: Ht 162.6 cm; Wt 59.0 kg
[~2020-12-09 14:20] MED LIST changes: +MAGN400T8 PO
[2020-12-09] MEDS ORDERED: RT-ALBUTEROL SULF 2.5 MG/3 ML PRE-MIX VIAL INH STA (14:43)
[2020-12-09] MEDS ORDERED: methylPREDNISolone 125 MG (Solu-MEDROL) VIAL IVP ONE (14:45)
[2020-12-09] MEDS ORDERED: RT-ALBUTEROL/IPRATROPIUM 3 ML (DUONEB) VIAL INH ONE (14:45)
[2020-12-09 14:59] LABS: BASOPHILS # (AUTO) 0.1 10^3/uL (0.0-0.1); BASOPHILS % (AUTO) 0 % (0-10); EOSINOPHILS # (AUTO) 0.9 10^3/uL (0.0-0.3); EOSINOPHILS % (AUTO) 7 % (0-10); HEMATOCRIT 40 % (35-52); HEMOGLOBIN 12.7 g/dL (11.5-16.0); LYMPHOCYTES # (AUTO) 2.7 10^3/uL (1.0-4.0); LYMPHOCYTES % (AUTO) 20 % (12-44); MEAN CORPUSCULAR HEMOGLOBIN 27 pg (25-34); MEAN CORPUSCULAR HGB CONC 32 g/dL (32-36); MEAN CORPUSCULAR VOLUME 83 fL (80-99); MEAN PLATELET VOLUME 11.4 fL (9.0-12.2); MONOCYTES # (AUTO) 0.9 10^3/uL (0.0-1.0); MONOCYTES % (AUTO) 7 % (0-12); NEUTROPHILS # (AUTO) 8.9 10^3/uL (1.8-7.8); NEUTROPHILS % (AUTO) 66 % (42-75); PLATELET COUNT 254 10^3/uL (130-400); WHITE BLOOD COUNT 13.5 10^3/uL (4.3-11.0)
[2020-12-09 15:04] LABS: CHLORIDE 98 MMOL/L (98-107); POTASSIUM 3.4 MMOL/L (3.6-5.0); SODIUM 141 MMOL/L (135-145)
[2020-12-09 15:05] LABS: CALCIUM 10.5 MG/DL (8.5-10.1)
[2020-12-09 15:06] LABS: GLUCOSE 148 MG/DL (70-105)
[2020-12-09 15:07] LABS: CARBON DIOXIDE 32 MMOL/L (21-32)
[2020-12-09 15:10] LABS: GFR ESTIMATED > 60
[2020-12-09 15:11] LABS: BUN/CREATININE RATIO 11
--- NOTE | 2020-12-09 15:25 | Diagnostic Imaging Report ---
INDICATION: Shortness of breath x 2 days. EXAMINATION: Portable chest at 3:15 p.m. FINDINGS: There is some air trapping in the lungs. Heart size and pulmonary vascularity are normal. Lungs are clear. There are no effusions or pneumothoraces. IMPRESSION: Air trapping consistent with COPD. No acute abnormality seen. Dictated by: Dictated on workstation # [id number]
--- NOTE | 2020-12-09 15:36 | ED Respiratory ---
General Chief Complaint: Respiratory Problems Stated Complaint: SOB Nursing Triage Note: PT TO ROOM VIA [facility] WITH C/O SOB X2 DAYS WORSENING TODAY. PT REPORTS HX OF COPD AND WEARS HOME O2 AT 2LPM. Source: patient Exam Limitations: no limitations History of Present Illness Date Seen by Provider: December 09, 2020 Time Seen by Provider: 14:35 Initial Comments This 60-year-old woman with COPD presents to emergency room with progressive shortness of breath over the past several days and sputum production. She is afebrile. She wears oxygen at 2 L at home. Oxygen saturation is in the mid to upper 90s on 2 L at this time. Daughter reports that patient has had a significant issues with anxiety at home. She has had episodes of extreme shortness of breath with hypoxia that dips into the 80s and even dipped down to 79% today. She has noted cyanosis of the lips during these episodes. Patient continues to smoke but has not had any cigarettes today. Allergies and Home Medications Allergies Coded Allergies: No Known Drug Allergies (Unverified , 06/12/15) Home Medications Linagliptin 5 Mg Tablet, 5 MG PO DAILY, (Reported) Lorazepam 0.5 Mg Tablet, 0.5 MG PO DAILY, (Reported) Magnesium Oxide 250 Mg Tablet, 250 MG PO DAILY, (Reported) Magnesium Oxide 400 Mg Tablet, 400 MG PO BID Prescribed by: JACKIE CONNOLLY on 11/13/20 2300 Metformin HCl 500 Mg Tablet, 500 MG PO BID, (Reported) [place] 3 Polyunsat Fatty Acids 1,000 Mg Cap, 1,000 MG PO DAILY, (Reported) Pantoprazole Sodium 40 Mg Tablet.dr, 40 MG PO DAILY Prescribed by: ELADIA HOLLAND on 08/20/15 1753 Potassium Chloride 20 Meq Tablet.er, 20 MEQ PO DAILY, (Reported) Prednisone 20 Mg Tab, 40 MG PO DAILY Prescribed by: JORDON REGALADO on 04/30/20 1523 Sertraline HCl 100 Mg Tablet, 100 MG PO DAILY, (Reported) Simvastatin 40 Mg Tablet, 40 MG PO DAILY, (Reported) Patient Home Medication List Home Medication List Reviewed: Yes Review of Systems Review of Systems Constitutional: no symptoms reported EENTM: no symptoms reported Respiratory: see HPI Cardiovascular: no symptoms reported Gastrointestinal: no symptoms reported Genitourinary: no symptoms reported : No Musculoskeletal: no symptoms reported Skin: no symptoms reported Psychiatric/Neurological: No Symptoms Reported Hematologic/Lymphatic: No Symptoms Reported Immunological/Allergic: no symptoms reported Past Jnuptkf-Qujyfw-Sfruys Hx Past Med/Social Hx: Reviewed Nursing Past Med/Soc Hx Patient Social History Alcohol Use: Denies Use Smoking Status: Current Everyday Smoker Type Used: Cigarettes Recent Infectious Disease Expo: No Recent Hopitalizations: No Immunizations Up To Date PED Vaccines UTD: Yes Past Medical History Surgeries: Yes (HERNIA, BI LAT MASECTOMY) Abdominal, Breast, Tubal Ligation Respiratory: Yes (Uses oxygen at 2 L continuously) COPD Cardiac: Yes High Cholesterol, Hypertension, Syncope Neurological: Yes (VASOVAGAL SYNCOPE VS SEIZURE) Headaches /Migraines 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, 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 0.0oz. [id number]; 22.00 BMI Method:Stated General Appearance: WD/WN, no apparent distress HEENT: PERRL/EOMI, normal ENT inspection, other (Oropharynx somewhat dry) Neck: normal inspection Respiratory: no respiratory distress, no accessory muscle use, decreased breath sounds, wheezing (Tight wheezing) Cardiovascular: regular rate, rhythm, no edema, no murmur Gastrointestinal: normal bowel sounds, non tender, soft Extremities: normal inspection, no pedal edema Neurologic/Psychiatric: wet roaster II-XII nml as tested, no motor/sensory deficits, alert, normal mood/affect, oriented x 3 Skin: normal color, warm/dry Progress/Results/Core Measures Suspected Sepsis Recent Fever Within 48 Hours: No Infection Criteria Present: None New/Unexplained Altered Menta: No Sepsis Screen: No Definite Risk SIRS Temperature: Pulse: 73 Respiratory Rate: 17 Laboratory Tests 12/09/20 14:42: White Blood Count 13.5H Blood Pressure 129 /74 Mean: 92 Laboratory Tests 12/09/20 14:42: Creatinine 0.70, Platelet Count 254 Results/Orders Lab Results Laboratory Tests Test 12/09/20 14:36 12/09/20 14:42 Range/Units SARS-CoV-2 RNA (RT-PCR) Not Detected Not Detecte White Blood Count 13.5 H 4.3-11.0 10^3/uL Red Blood Count 4.77 3.80-5.11 10^6/uL Hemoglobin 12.7 11.5-16.0 g/dL Hematocrit 40 35-52 % Mean Corpuscular Volume 83 80-99 fL Mean Corpuscular Hemoglobin 27 25-34 pg Mean Corpuscular Hemoglobin Concent 32 32-36 g/dL Red Cell Distribution Width 15.6 H 10.0-14.5 % Platelet Count 254 130-400 10^3/uL Mean Platelet Volume 11.4 9.0-12.2 fL Immature Granulocyte % (Auto) 0 % Neutrophils (%) (Auto) 66 42-75 % Lymphocytes (%) (Auto) 20 12-44 % Monocytes (%) (Auto) 7 0-12 % Eosinophils (%) (Auto) 7 0-10 % Basophils (%) (Auto) 0 0-10 % Neutrophils # (Auto) 8.9 H 1.8-7.8 10^3/uL Lymphocytes # (Auto) 2.7 1.0-4.0 10^3/uL Monocytes # (Auto) 0.9 0.0-1.0 10^3/uL Eosinophils # (Auto) 0.9 H 0.0-0.3 10^3/uL Basophils # (Auto) 0.1 0.0-0.1 10^3/uL Immature Granulocyte # (Auto) 0.0 0.0-0.1 10^3/uL Sodium Level 141 135-145 MMOL/L Potassium Level 3.4 L 3.6-5.0 MMOL/L Chloride Level 98 98-107 MMOL/L Carbon Dioxide Level 32 21-32 MMOL/L Anion Gap 11 5-14 MMOL/L Blood Urea Nitrogen 8 7-18 MG/DL Creatinine 0.70 0.60-1.30 MG/DL Estimat Glomerular Filtration Rate > 60 BUN/Creatinine Ratio 11 Glucose Level 148 H 70-105 MG/DL Calcium Level 10.5 H 8.5-10.1 MG/DL C-Reactive Protein High Sensitivity 0.25 0.00-0.50 MG/DL Micro Results Microbiology 12/09/20 Influenza Types A,B Antigen (CONNER) - Final, Complete My Orders Orders - JACKIE HOLLAND MD Methylprednisolone Sod Succ (Solu-Medrol (12/09/20 14:45) Albuterol Pre-Mix Nebs (Rt) (Proventil (12/09/20 14:43) Albuterol/Ipra Inhalation Soln (Duoneb I (12/09/20 14:45) Svn Small Volume Nebulizer (12/09/20 14:43) Svn Small Volume Nebulizer (12/09/20 14:43) Influenza A And B Antigens (12/09/20 14:44) Covid 19 Inhouse Test (12/09/20 14:44) Basic Metabolic Panel (12/09/20 14:52) Cbc With Automated Diff (12/09/20 14:52) Hs C Reactive Protein (12/09/20 14:52) Chest 1 View, Ap/Pa Only (12/09/20 14:52) Medications Given in ED Current Medications Medications Dose Ordered Sig/Patrick Route Start Time Stop Time Status Last Admin Dose Admin Albuterol/ Ipratropium 3 ml ONCE ONCE INH 12/09/20 14:45 12/09/20 14:46 DC 12/09/20 15:42 3 ML Methylprednisolone Sodium Succinate 62.5 mg ONCE ONCE IVP 12/09/20 14:45 12/09/20 14:46 DC 12/09/20 14:47 62.5 MG Vital Signs/I&O 12/09/20 12/09/20 14:21 15:43 Temp 36.0 Pulse 73 Resp 17 B/P (MAP) 129/74 (92) Pulse Ox 95 O2 Delivery Nasal Cannula Nasal Cannula O2 Flow Rate 2.00 2.00 Capillary Refill : Less Than 3 Seconds Blood Pressure Mean: 92 Progress Note #1: Time: 15:35 Progress Note Patient was seen and examined. Covid and influenza testing was performed and both were negative. Chest x-ray was unremarkable for infiltrate or congestive failure. COPD features were noted. An hour-long nebulizer treatment is being administered. Solu-Medrol 62.5 mg was administered. We will reassess after the hour-long nebulizer is complete. Progress Note #2: Time: 17:45 Progress Note Patient is still fairly tight and wheezy on auscultation. I discussed options with patient and her daughter. We collectively agree that admission for further treatment of her COPD exacerbation and anxiety is warranted. Diagnostic Imaging Diagonstic Imaging: Xray Plain Films/CT/US/NM/MRI: chest Comments Chest x-ray viewed by me and report reviewed. See report below: NAME: AN ZAZUETA [facility] REC#: [id number] PT STATUS: REG ER : 1960 PHYSICIAN: JACKIE HOLLAND MD ADMIT DATE: 12/09/20/ER Draft Date of Exam:12/09/20 CHEST 1 VIEW, AP/PA ONLY INDICATION: Shortness of breath x 2 days. EXAMINATION: Portable chest at 3:15 p.m. FINDINGS: There is some air trapping in the lungs. Heart size and pulmonary vascularity are normal. Lungs are clear. There are no effusions or pneumothoraces. IMPRESSION: Air trapping consistent with COPD. No acute abnormality seen. Dictated on workstation # [id number] Dict: 12/09/20 1522 Trans: 12/09/20 1524 [facility] [id number] Interpreted by: JORDON SANDOVAL MD Departure Communication (Admissions) Time/Spoke to Admitting Phy: 17:38 Dr. Spence Impression Primary Impression: COPD with acute exacerbation Additional Impressions: Anxiety Hypoxia Disposition: ADMITTED INPATIENT Condition: Improved Admissions Decision to Admit Reason: Admit from ER (General) Decision to Admit/Date: December 09, 2020 Time/Decision to Admit Time: 17:35 Departure-Patient Inst. Referrals: JEFFERSON AQUINO (PCP/Family) Primary Care Physician JACKIE HOLLAND MD December 09, 2020 15:36
[2020-12-09 19:40] VITALS: BP 114/52
[2020-12-09 19:45] VITALS: BP 129/74
[2020-12-09] MEDS ORDERED: CATHETER FLUSH 10 ML SYR IV PRN (19:45)
[2020-12-09] MEDS ORDERED: ONDANSETRON 4 MG/2 ML (SDV) Z0FRAN IV PRN (19:45)
[2020-12-09] MEDS ORDERED: LORazepam INJ 2 MG/ML (ATIVAN) VIAL IV PRN (19:45)
[2020-12-09] MEDS: NICOTINE 21 MG (NICODERM) PATCH TD SCH (19:58)
[2020-12-09 20:00] VITALS: BP 126/56
[2020-12-09] MEDS ORDERED: methylPREDNISolone 40 MG/ML (Solu-MEDROL) VIAL IV SCH (20:00)
[2020-12-09] MEDS: methylPREDNISolone 40 MG/ML (Solu-MEDROL) VIAL IV SCH (20:11)
[2020-12-09] MEDS: ENOXAPARIN 40 MG/0.4 ML (LOVENOX) SYR SC SCH (20:11)
[2020-12-09] MEDS ORDERED: ACETAMINOPHEN 500 MG TAB (TYLENOL) PO PRN (20:15)
[2020-12-09] MEDS ORDERED: ENOXAPARIN 40 MG/0.4 ML (LOVENOX) SYR SC SCH (20:15)
[2020-12-09] MEDS ORDERED: LOPERAMIDE 2 MG (IMODIUM) TABLET PO PRN (20:15)
[2020-12-09] MEDS ORDERED: diphenhydrAMINE 25 MG TAB (BENADRYL) PO PRN (20:15)
[2020-12-09] MEDS ORDERED: CALCIUM CARBONATE 500 MG (TUMS) TAB.CHEW PO PRN (20:15)
[2020-12-09] MEDS ORDERED: HYDROcodone/APAP 5 MG/325 MG (LORTAB) TAB PO PRN (20:15)
[2020-12-09] MEDS ORDERED: DOCUSATE SODIUM 100 MG (COLACE) CAP PO PRN (20:15)
[2020-12-09] MEDS ORDERED: MELATONIN 3 MG TABLET PO PRN (20:15)
[2020-12-09] MEDS ORDERED: RT-ALBUTEROL/IPRATROPIUM 3 ML (DUONEB) VIAL INH PRN (20:15)
[2020-12-09] MEDS ORDERED: ONDANSETRON 4 MG/2 ML (SDV) Z0FRAN IVP PRN (20:15)
[2020-12-09] MEDS ORDERED: morphine INJ 10 MG/ML 1ML (SYR OR VIAL) IVP PRN (20:15)
[2020-12-09] MEDS ORDERED: ALPRAZolam 0.25 MG (XANAX) TAB PO PRN (20:15)
[2020-12-09] MEDS: inSUlin ASPART (NovoLOG) 1 UNIT/0.01 ML (CHARGE PER UNIT) SC SCH (20:22)
[2020-12-09 20:48] LABS: ALBUMIN 4.7 GM/DL (3.2-4.5)
[2020-12-09 20:51] LABS: TOTAL PROTEIN 7.9 GM/DL (6.4-8.2)
[2020-12-09 20:53] LABS: BILIRUBIN,TOTAL 0.3 MG/DL (0.1-1.0)
[2020-12-09 20:56] LABS: BILIRUBIN,DIRECT 0.1 MG/DL (0.0-0.3); BILIRUBIN,INDIRECT 0.2 MG/DL
[2020-12-09] MEDS: SENNA W/DOCUSATE (SENOKOT S) TABLET PO SCH (21:11)
[2020-12-09] MEDS: CATHETER FLUSH 10 ML SYR IV SCH (21:17)
[2020-12-09 21:43] VITALS: BP 99/52
[2020-12-09 22:00] VITALS: BP 98/45
[2020-12-09] MEDS: RT-ALBUTEROL/IPRATROPIUM 3 ML (DUONEB) VIAL INH SCH (22:08)
[2020-12-09 23:00] VITALS: BP 103/48
[2020-12-10] VITALS (7 sets, daily range): BP systolic 108–143; BP diastolic 52–96
[2020-12-10] MEDS: methylPREDNISolone 40 MG/ML (Solu-MEDROL) VIAL IV SCH ×4 (02:16→20:32)
[2020-12-10 04:08] LABS: BASOPHILS % (AUTO) 0 % (0-10); EOSINOPHILS % (AUTO) 0 % (0-10); HEMATOCRIT 36 % (35-52); HEMOGLOBIN 11.7 g/dL (11.5-16.0); LYMPHOCYTES # (AUTO) 1.5 10^3/uL (1.0-4.0); LYMPHOCYTES % (AUTO) 10 % (12-44); MEAN CORPUSCULAR HEMOGLOBIN 27 pg (25-34); MEAN CORPUSCULAR HGB CONC 32 g/dL (32-36); MEAN CORPUSCULAR VOLUME 83 fL (80-99); MEAN PLATELET VOLUME 11.7 fL (9.0-12.2); MONOCYTES # (AUTO) 0.5 10^3/uL (0.0-1.0); MONOCYTES % (AUTO) 3 % (0-12); NEUTROPHILS # (AUTO) 13.5 10^3/uL (1.8-7.8); NEUTROPHILS % (AUTO) 86 % (42-75); PLATELET COUNT 275 10^3/uL (130-400); WHITE BLOOD COUNT 15.6 10^3/uL (4.3-11.0)
[2020-12-10 04:17] LABS: CHLORIDE 99 MMOL/L (98-107); POTASSIUM 3.6 MMOL/L (3.6-5.0); SODIUM 140 MMOL/L (135-145)
[2020-12-10 04:19] LABS: CALCIUM 9.9 MG/DL (8.5-10.1); GLUCOSE 169 MG/DL (70-105)
[2020-12-10 04:21] LABS: CARBON DIOXIDE 23 MMOL/L (21-32)
[2020-12-10 04:23] LABS: CREATININE SERUM 0.75 MG/DL (0.60-1.30); GFR ESTIMATED > 60; PHOSPHORUS 3.3 MG/DL (2.3-4.7)
[2020-12-10 04:24] LABS: BUN/CREATININE RATIO 17
[2020-12-10 04:25] LABS: MAGNESIUM 1.6 MG/DL (1.6-2.4)
[2020-12-10 04:34] LABS: LYMPHOCYTES % (MANUAL) 9 %; MONOCYTES % (MANUAL) 1 %; NEUTROPHILS % (MANUAL) 90 %; RBC MORPH NORMAL
--- NOTE | 2020-12-10 05:12 | Pulmonary Consultation ---
History of Present Illness History of Present Illness Date Seen by Provider: December 10, 2020 Time Seen by Provider: 05:06 Date of Admission Allergies and Home Medications Allergies Coded Allergies: No Known Drug Allergies (Unverified , 06/12/15) Home Medications Linagliptin 5 Mg Tablet, 5 MG PO DAILY, (Reported) Lorazepam 0.5 Mg Tablet, 0.5 MG PO DAILY, (Reported) Magnesium Oxide 250 Mg Tablet, 250 MG PO DAILY, (Reported) Magnesium Oxide 400 Mg Tablet, 400 MG PO BID Prescribed by: JACKIE CONNOLLY on 11/13/20 2300 Metformin HCl 500 Mg Tablet, 500 MG PO BID, (Reported) [place] 3 Polyunsat Fatty Acids 1,000 Mg Cap, 1,000 MG PO DAILY, (Reported) Pantoprazole Sodium 40 Mg Tablet.dr, 40 MG PO DAILY Prescribed by: ELADIA HOLLAND on 08/20/15 1753 Potassium Chloride 20 Meq Tablet.er, 20 MEQ PO DAILY, (Reported) Prednisone 20 Mg Tab, 40 MG PO DAILY Prescribed by: JORDON REGALADO on 04/30/20 1523 Sertraline HCl 100 Mg Tablet, 100 MG PO DAILY, (Reported) Simvastatin 40 Mg Tablet, 40 MG PO DAILY, (Reported) Past Rtbbsgz-Kbsnsx-Nrfzvj Hx Past Med/Social Hx: Reviewed Nursing Past Med/Soc Hx Patient Social History Alcohol Use: Denies Use Smoking Status: Current Everyday Smoker Type Used: Cigarettes Recent Infectious Disease Expo: No Recent Hopitalizations: No Have you traveled recently?: No Alcohol Use?: No Immunizations Up To Date PED Vaccines UTD: Yes Past Medical History Surgeries: Yes (HERNIA, BI LAT MASECTOMY) Abdominal, Breast, Tubal Ligation Respiratory: Yes (Uses oxygen at 2 L continuously) COPD Cardiac: Yes High Cholesterol, Hypertension, Syncope Neurological: Yes (VASOVAGAL SYNCOPE VS SEIZURE) Headaches /Migraines 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 0.0oz. 63.570408my; 22.31 BMI Method:Stated Exam Exam Vital Signs Date Time Temp Pulse Resp B/P (MAP) Pulse Ox O2 Delivery O2 Flow Rate FiO2 12/10/20 04:00 84 19 130/56 (80) 92 Nasal Cannula 2.00 12/10/20 03:20 36.1 12/10/20 02:30 93 Nasal Cannula 2.00 12/10/20 01:00 74 12/10/20 00:00 36.6 12/10/20 00:00 78 14 108/52 (70) 92 Nasal Cannula 2.00 12/09/20 23:00 75 24 103/48 (66) 93 Nasal Cannula 2.00 12/09/20 22:30 75 23 93 Nasal Cannula 2.00 12/09/20 22:08 95 Nasal Cannula 2.00 12/09/20 22:00 75 23 98/45 (62) 93 Nasal Cannula 3.00 12/09/20 21:43 84 35 99/52 (68) 94 Nasal Cannula 3.00 12/09/20 20:00 86 22 126/56 (79) 97 Nasal Cannula 3.00 12/09/20 19:52 Nasal Cannula 3.00 94 12/09/20 19:45 36.0 73 95 12/09/20 19:40 36.6 79 20 114/52 (72) 94 Nasal Cannula 3.00 12/09/20 19:00 89 12/09/20 18:51 Nasal Cannula 3.00 95 12/09/20 18:27 71 16 131/70 95 Nasal Cannula 2.00 12/09/20 15:43 95 Nasal Cannula 2.00 12/09/20 14:21 36.0 73 17 129/74 (92) Nasal Cannula 2.00 I & O 12/10/20 07:00 Intake Total 300 ml Balance 300 ml Height & Weight Height: 5'3.00" Weight: 139lbs. 0.0oz. 63.017577io; 22.31 BMI Method:Stated General Appearance: No Apparent Distress, WD/WN HEENT: PERRL/EOMI, TMs Normal, Normal ENT Inspection, Pharynx Normal Neck: Full Range of Motion, Normal Inspection Respiratory: Chest Non Tender, No Accessory Muscle Use, No Respiratory Distress, Crackles, Decreased Breath Sounds Cardiovascular: Regular Rate, Rhythm Capillary Refill: Less Than 3 Seconds Gastrointestinal: normal bowel sounds, non tender, soft Extremity: Normal Capillary Refill, Normal Inspection Neurologic/Psychiatric: Alert, Oriented x3 Skin: Normal Color, Warm/Dry Lymphatic: No Adenopathy Results Lab Laboratory Tests 12/09/20 14:42 12/10/20 03:45 Assessment/Plan Assessment/Plan COPDAE -Solumedrol 40mg IV Q 6 currently -Oxygen 2 liters (Pt uses 2 liters of oxygen at home.) Anxiety Leukocytosis - probably secondary to steroids -PCT neg -CXR is neg for acute infiltrates -Check UA tobacco dependance -Education SONIA HOU DO December 10, 2020 05:12
[2020-12-10] MEDS: MAGNESIUM 1 GM/100 ML IVPB 100 ML IV SCH ×2 (05:28→06:44)
[2020-12-10] MEDS: CATHETER FLUSH 10 ML SYR IV SCH ×3 (05:34→21:37)
[2020-12-10] MEDS: inSUlin ASPART (NovoLOG) 1 UNIT/0.01 ML (CHARGE PER UNIT) SC SCH ×4 (06:08→21:36)
[2020-12-10] MEDS: RT-ALBUTEROL/IPRATROPIUM 3 ML (DUONEB) VIAL INH SCH ×2 (06:26→10:40)
[2020-12-10] MEDS: LORATADINE (CLARITIN) 10 MG TAB PO SCH (08:52)
[2020-12-10] MEDS: NICOTINE PATCH REMOVAL TP SCH (08:53)
[2020-12-10] MEDS: SENNA W/DOCUSATE (SENOKOT S) TABLET PO SCH ×2 (08:53→20:32)
[2020-12-10] MEDS: NICOTINE 21 MG (NICODERM) PATCH TD SCH (08:54)
[2020-12-10] MEDS ORDERED: KCL 20 MEQ TAB (K-DUR) PO ONE (09:00)
[2020-12-10] MEDS ORDERED: PANTOPRAZOLE 40 MG (PROTONIX) TAB PO SCH (09:00)
[2020-12-10] MEDS ORDERED: RT-ALBUINH IH (09:54)
[2020-12-10] MEDS ORDERED: SITA50TA PO (09:54)
[2020-12-10] MEDS ORDERED: AMLO-250 PO (09:54)
[2020-12-10] MEDS ORDERED: ATOR20TA66 PO (09:54)
[2020-12-10] MEDS ORDERED: SERT-413 PO (09:54)
[2020-12-10] MEDS ORDERED: PANT40TA52 PO (09:54)
[2020-12-10] MEDS ORDERED: CALC-902 PO (09:54)
[2020-12-10] MEDS ORDERED: LORA-404 PO (09:54)
[2020-12-10] MEDS ORDERED: ALEN70TA80 PO (09:54)
[2020-12-10] MEDS ORDERED: NAPR-1084 PO (09:54)
[2020-12-10] MEDS ORDERED: LETR2.5T6 PO (09:54)
[2020-12-10] MEDS ORDERED: CALC-250 PO (09:54)
[2020-12-10] MEDS ORDERED: METF-399 PO (09:54)
[2020-12-10] MEDS ORDERED: IPRA3AMP31 IH (09:54)
[2020-12-10] MEDS: RT--FLUTICASONE/SALMETEROL 113-14 (AIRDUO RespiCLICK) IH SCH ×2 (10:40→21:31)
--- NOTE | 2020-12-10 11:55 | History & Physical-Hospitalist ---
History of Present Illness HPI/Chief Complaint CC: SOB HPI: This is a 60yoWF who is very debilitated with COPD, oxygen-dependency and a chronic tremor who presents to the ER with SOB found to have exacerbation of COPD and panic attacks. Pt was admitted, she has a history of labial cyst, she has been squeezing and she was up in the cardiac step down unit transferred down to fourth floor today and feeling much better. We will change her nebulizer treatments to Xopenex due to tremor. Source: patient, RN/MD Exam Limitations: no limitations Date Seen 12/10/20 Time Seen by a Provider: 11:00 Attending Physician Leann Spence Alison L Arnp Referring Physician Date of Admission December 09, 2020 at 17:57 Home Medications & Allergies Home Medications Reviewed patient Home Medication Reconciliation performed by pharmacy medication reconciliations biological lab technician and/or nursing. Patients Allergies have been reviewed. Allergies Allergies Coded Allergies No Known Drug Allergies ([id number]/20/15) Past Medical/Social/Family Hx Patient Social History Marrital Status: single Employed/Student: unemployed Tobacco Use?: Yes Tobacco type used: Cigarettes Smoking Status: Current Everyday Smoker Substance use?: No Alcohol Use?: No Pt stated abuse/neglect: No Immunizations Up To Date Influenza Vaccine Up-to-Date: No; Not Current Current Status status: No status: No Advance Directives: No Primary Language: Faroese Preferred Spoken Language: Faroese Implanted or Applied Medical D: None Past Medical History COPD O2 dependent Tremor Smoker Breast cancer Review of Systems Constitutional: see HPI, malaise, weakness Respiratory: dyspnea on exertion Physical Exam Physical Exam Vital Signs Vital Signs - First Documented 12/09/20 12/09/20 12/09/20 14:21 15:43 18:51 Temp 36.0 Pulse 73 Resp 17 B/P (MAP) 129/74 (92) Pulse Ox 95 O2 Delivery Nasal Cannula O2 Flow Rate 2.00 FiO2 95 Capillary Refill : Less Than 3 Seconds Height, Weight, BMI Height: 5'3.00" Weight: 139lbs. 0.0oz. 63.954196gr; 22.31 BMI Method:Stated General Appearance: No Apparent Distress, Chronically ill, Thin Eyes: Right Eye Normal Inspection, Right Eye PERRL HEENT: PERRL/EOMI, Normal ENT Inspection, Pharynx Normal, Moist Mucous Membranes Neck: Full Range of Motion, Normal Inspection, Non Tender Respiratory: Chest Non Tender, No Accessory Muscle Use, No Respiratory Distress, Decreased Breath Sounds, Wheezing Cardiovascular: Regular Rate, Rhythm, No Edema, No Gallop, No JVD, No Murmur, Normal Peripheral Pulses Gastrointestinal: Normal Bowel Sounds, No Organomegaly, No Pulsatile Mass, Non Tender, Soft Back: Normal Inspection, No CVA Tenderness, No Vertebral Tenderness Extremity: Normal Capillary Refill, Normal Inspection, Normal Range of Motion, Non Tender, No Calf Tenderness, No Pedal Edema Neurologic/Psychiatric: Alert, Oriented x3, No Motor/Sensory Deficits, Normal Mood/Affect Skin: Normal Color, Warm/Dry Lymphatic: No Adenopathy Results Results/Procedures Labs Laboratory Tests 12/09/20 14:42 12/10/20 03:45 Patient resulted labs reviewed. Assessment/Plan Admission Diagnosis Assessment: AECOPD Tremor Chronic disability Plan: PT OT O2 Nebs Home meds IV steroids Admission Status: Inpatient Order (span 2 midnights) Reason for Inpatient Admission: aecopd LEANN SPENCE DO December 10, 2020 11:55
--- NOTE | 2020-12-10 14:46 | Physical Therapy Evaluation ---
PT Evaluation-General Medical Diagnosis Admission Date December 09, 2020 at 17:57 Medical Diagnosis: COPD exacerbation/anxiety Onset Date: December 09, 2020 Therapy Diagnosis Therapy Diagnosis: debility/weakness Height/Weight Height (Feet): 5 Height (Inches): 3.00 Weight (Pounds): 139 Weight (Ounces): 0.0 Precautions Precautions/Isolations: Standard Precautions Referral Physician: Bebe Reason for Referral: Evaluation/Treatment Medical History Pertinent Medical History: COPD, DM, HTN, Smoking Additional Medical History anxiety Current History EMS secondary to SOA Reviewed History: Yes Social History Home: [facility] Current Living Status: Alone Entry Into Home: Stairs With Railing PT Steps Into Home: 3 Prior Prior Level of Function SCALE: Activities may be completed with or without assistive devices. 0-Xfbjkrciap-yoeiuew completes the activity by him/herself with no assistance from a helper. 5-Set-up or Clean-up Assistance-helper sets up or cleans up; patient completes activity. [place] assists only prior to or following the activity. 4-Supervision or Touching Assistance-helper provides verbal cues and/or touching/steadying and/or contact guard assistance as patient completes activity. Assistance may be provided throughout the activity or intermittently. 3-Partial/Moderate Assistance-helper does LESS THAN HALF the effort. [place] lifts, holds or supports trunk or limbs, but provides less than half the effort. 2-Substantial/Maximal Assistance-helper does MORE THAN HALF the effort. [place] lifts or holds trunk or limbs and provides more than half the effort. 3-Mvyrrjouh-[place] does ALL the effort. Patient does none of the effort to complete the activity. Or, the assistance of 2 or more helpers is required for the patient to complete the activity. If activity was not attempted, code reason: 7-Patient Refused. 9-Not Applicable-not attempted and the patient did not perform the activity before the current illness, exacerbation or injury. 10-Not Attempted due to Environmental Limitations-(lack of equipment, weather restraints, etc.). 88-Not Attempted due to Medical Conditions or Safety Concerns. Bed Mobility: 6 Transfers (B,C,W/C): 6 Gait: 6 Stairs: 6 Indoor Mobility (Ambulation): Independent Stairs: Independent Prior Devices Use: None PT Evaluation-Current Subjective Patient agrees to PT. Objective Patient Orientation: Normal For Age Attachments: Oxygen ROM/Strength ROM Lower Extremities bilateral LE WFL Strength Lower Extremities 4-/5 grossly bilateral LE Integumentary/Posture Integumentary refer to nursing notes Bowel Incontinence: No Bladder Incontinence: No Posture WFL Neuromuscular (Tone, Coordination, Reflexes) grossly intact Sensory Vision: Wears Glasses Hearing: Functional Transfers Roll Left to Right (QC): 6 Sit to Lying (QC): 6 Lying to Sitting/Side of Bed(Q: 6 Sit to Stand (QC): 6 Gait Does the Patient Walk?: Yes Mode of Locomotion: Walk Anticipated Mode of Locomotion: Walk Walk 10 feet (QC): 4 Walk 50 ft with 2 Turns(QC): 4 Walk 150 ft (QC): 4 Distance: 400' Gait Assistive Device: FWW Comments/Gait Description FWW for energy conservation due to SOA Wheelchair Training Does the Pt Use a Wheelchair?: No Balance Sitting Static: Normal Sitting Dynamic: Normal Standing Static: Fair Standing Dynamic: Fair Picking up an Object (QC): 6 Assessment/Needs 60 y.o. female, will be seen short term by skilled PT to address pulmonary function with functional mobility to ensure safe return to home at maximum LOF. Patient is unable to use AD in home due to size of home. Rehab Potential: Fair PT Short Term Goals Short Term Goals Time Frame: December 12, 2020 Roll Left & Right: 6 Sit to lyin Lying to sitting on side of be: 6 Sit to stand: 6 Chair/wnh-wf-bnwrn transfer: 6 Toilet transfer: 6 Walk 10 feet: 6 Walk 50 feet with two turns: 6 Walk 150 feet: 6 PT Plan Problem List Problem List: Activity Tolerance, Functional Strength, Safety, Balance, Gait, Transfer Treatment/Plan Treatment Plan: Continue Plan of Care Treatment Plan: Bed Mobility, Education, Functional Activity Cecilia, Functional Strength, Gait, Safety, Therapeutic Exercise, Transfers Treatment Duration: December 18, 2020 Frequency: 3 times per week Estimated Hrs Per Day: .25 hour per day Patient and/or Family Agrees t: Yes Time/GCodes Time In: 1305 Time Out: 1320 Total Billed Treatment Time: 15 Total Billed Treatment 1 visit EVModC 15 min DOUG CHRISTIANSON PT December 10, 2020 14:46
[2020-12-10] MEDS: RT-LEVALBUTEROL (XOPENEX) 1.25 MG/3 ML NEB NON-FORMULARY INH SCH ×3 (15:13→21:31)
--- NOTE | 2020-12-10 15:26 | Occupational Therapy Eval ---
OT Evaluation-General/PLF Medical Diagnosis Admission Date December 09, 2020 at 17:57 Medical Diagnosis: COPD exacerbation/anxiety Onset Date: December 09, 2020 Therapy Diagnosis Therapy Diagnosis: weakness Height/Weight Height (Feet): 5 Height (Inches): 3.00 Weight (Pounds): 139 Weight (Ounces): 0.0 Precautions Precautions/Isolations: Standard Precautions Referral Physician: Bebe Referral Reason: Evaluation/Treatment Medical History Pertinent Medical History: COPD, DM, HTN, Smoking Social History Home: [facility] Current Living Status: Alone Entry Into Home: Stairs With Railing Steps Into Home: 3 ADL-Prior Level of Function SCALE: Activities may be completed with or without assistive devices. 1-Lcrzfmogpj-tlruxpj completes the activity by him/herself with no assistance from a helper. 5-Set-up or Clean-up Assistance-helper sets up or cleans up; patient completes activity. [place] assists only prior to or following the activity. 4-Supervision or Touching Assistance-helper provides verbal cues and/or touching/steadying and/or contact guard assistance as patient completes activity. Assistance may be provided throughout the activity or intermittently. 3-Partial/Moderate Assistance-helper does LESS THAN HALF the effort. [place] lifts, holds or supports trunk or limbs, but provides less than half the effort. 2-Substantial/Maximal Assistance-helper does MORE THAN HALF the effort. [place] lifts or holds trunk or limbs and provides more than half the effort. 1-Sfumrcinr-nauwrk does ALL the effort. Patient does none of the effort to complete the activity. Or, the assistance of 2 or more helpers is required for the patient to complete the activity. If activity was not attempted, code reason: 7-Patient Refused. 9-Not Applicable-not attempted and the patient did not perform the activity before the current illness, exacerbation or injury. 10-Not Attempted due to Environmental Limitations-(lack of equipment, weather restraints, etc.). 88-Not Attempted due to Medical Conditions or Safety Concerns. ADL PLOF Comments Pt reports IND with all ADLs at [facility], uses 4WW in community. Self Care: Independent Functional Cognition: Independent DME/Equipment Comments 4WW OT Current Status Subjective Pt laying in bed, agreeable to OT evaluation Mental Status/Objective Patient Orientation: Person, Place, Time, Situation Attachments: Oxygen Current Glasses/Contacts: Yes Hand Dominance: Right Upper Extremity ROM WFL, BUE shoulder flexion to approx 150 degrees Upper Extremity Coordination WFL Upper Extremity Sensation WFL Upper Extremity Strength grossly 3+/5 ADL-Treatment Eating (QC): 6 (Per pt report) Oral Hygiene (QC): 6 (Per pt report and clincial judgement) Toileting Hygiene (QC): 6 (Per pt report, able to manage clothing and perform hygiene) Other Treatments Pt laying in bed, OT educated pt on purpose and benefit of OT. Pt provided information about PLOF and home set up, and participated in UE screen. OT educated pt on energy conservation techniques to use at home, taking rest breaks as needed, using a chair/stool in the kitchen, and using SC in the shower, she verbalized understanding. Pt declines toileting at this time, as she just went to the bathroom independently. OT educated pt on OT POC including increasing BUE strength and functional endurance, she verbalized understanding. Post tx, pt laying in bed, call light in reach and all needs met. Education OT Patient Education: Correct positioning, Exercise program, Modified ADL techniques, Progress toward Goal/Update tx plan, Purpose of tx/functional activities, Rehab process Teaching Recipient: Patient Teaching Methods: Discussion Response to Teaching: Verbalize Understanding OT Senior Librarian Goals Half-Way Goals Time Frame: December 18, 2020 Eating (QC): 6 Oral Hygiene (QC): 6 Toileting Hygiene (QC): 6 Shower/Bathe Self (QC): 6 Upper Body Dressing (QC): 6 Lower Body Dressing (QC): 6 On/Off Footwear (QC): 6 Additional Goals: 1-Demonstrate ADL Tasks, 2-Verbalize Understanding, 3- ImproveStrength/Cecilia 1=Demonstrate adherence to instructed precautions during ADL tasks. 2=Patient will verbalize/demonstrate understanding of assistive devices/modifications for ADL. 3=Patient will improve strength/tolerance for activity to enable patient to perform ADL's. OT Education/Plan Problem List/Assessment Assessment: Decreased Activ Tolerance, Decreased UE Strength, Impaired I ADL's, Impaired Self-Care Skills, Restricted Funct UE ROM Pt would benefit from short term skilled OT services in order to increase BUE strength and activity tolerance to maximize LOF with functional activities for safe return home. Discharge Recommendations Plan/Recommendations: Continue POC Treatment Plan/Plan of Care Patient would benefit from OT for education, treatment and training to promote independence in ADL's, mobility, safety and/or upper extremity function for ADL's. Plan of Care: ADL Retraining, Functional Mobility, UE Funct Exercise/Act Treatment Duration: December 18, 2020 Frequency: 5 times per week Estimated Hrs Per Day: .25 hour per day Rehab Potential: Fair Time/GCodes Start Time: 15:07 Stop Time: 15:17 Total Time Billed (hr/min): 10 Billed Treatment Time 1, TODD CHRISTIANSEN OT December 10, 2020 15:26
[2020-12-10] MEDS ORDERED: ACETAMINOPHEN 325 MG TABLET PO PRN (15:30)
[2020-12-10 16:10] LABS: BILIRUBIN,URINE NEGATIVE (NEGATIVE); CLARITY,URINE CLEAR; COLOR,URINE YELLOW; GLUCOSE, URINE (UA) NEGATIVE (NEGATIVE); KETONES,URINE NEGATIVE (NEGATIVE); LEUKOCYTE ESTERASE ,URINE NEGATIVE (NEGATIVE); NITRITE,URINE NEGATIVE (NEGATIVE); PROTEIN,URINE NEGATIVE (NEGATIVE)
[2020-12-10 16:17] LABS: BACTERIA,URINE NEGATIVE /HPF; SQUAMOUS EPITHELIAL CELL,UR 0-2 /HPF
[2020-12-10] MEDS ORDERED: RT-ALBUTEROL SULF 2.5 MG/3 ML PRE-MIX VIAL IH SCH (18:00)
[2020-12-10] MEDS: ENOXAPARIN 40 MG/0.4 ML (LOVENOX) SYR SC SCH (20:32)
[2020-12-10] MEDS ORDERED: NAPROXEN 250 MG (NAPROSYN) TABLET PO PRN (22:15)
[2020-12-11 00:55] VITALS: BP 141/79
[2020-12-11] MEDS: RT-LEVALBUTEROL (XOPENEX) 1.25 MG/3 ML NEB NON-FORMULARY INH SCH ×3 (02:01→10:36)
[2020-12-11 03:12] LABS: BASOPHILS % (AUTO) 0 % (0-10); EOSINOPHILS % (AUTO) 0 % (0-10); HEMATOCRIT 35 % (35-52); HEMOGLOBIN 11.1 g/dL (11.5-16.0); LYMPHOCYTES # (AUTO) 1.8 10^3/uL (1.0-4.0); LYMPHOCYTES % (AUTO) 9 % (12-44); MEAN CORPUSCULAR HEMOGLOBIN 27 pg (25-34); MEAN CORPUSCULAR HGB CONC 32 g/dL (32-36); MEAN CORPUSCULAR VOLUME 82 fL (80-99); MEAN PLATELET VOLUME 11.8 fL (9.0-12.2); MONOCYTES # (AUTO) 0.9 10^3/uL (0.0-1.0); MONOCYTES % (AUTO) 4 % (0-12); NEUTROPHILS # (AUTO) 18.4 10^3/uL (1.8-7.8); NEUTROPHILS % (AUTO) 87 % (42-75); PLATELET COUNT 267 10^3/uL (130-400); WHITE BLOOD COUNT 21.3 10^3/uL (4.3-11.0)
[2020-12-11 03:28] LABS: CHLORIDE 103 MMOL/L (98-107); POTASSIUM 4.5 MMOL/L (3.6-5.0); SODIUM 140 MMOL/L (135-145)
[2020-12-11 03:29] LABS: CALCIUM 9.8 MG/DL (8.5-10.1)
[2020-12-11 03:30] LABS: GLUCOSE 180 MG/DL (70-105)
[2020-12-11 03:31] LABS: CARBON DIOXIDE 29 MMOL/L (21-32)
[2020-12-11 03:34] LABS: BUN/CREATININE RATIO 21; CREATININE SERUM 0.73 MG/DL (0.60-1.30); GFR ESTIMATED > 60
[2020-12-11 03:36] LABS: MAGNESIUM 2.1 MG/DL (1.6-2.4)
[2020-12-11] MEDS: methylPREDNISolone 40 MG/ML (Solu-MEDROL) VIAL IV SCH (03:51)
[2020-12-11 03:53] VITALS: BP 141/79
--- NOTE | 2020-12-11 05:42 | Progress Note - Hospitalist ---
Subjective HPI/CC On Admission Date Seen by Provider: December 11, 2020 CC: SOB HPI: This is a 60yoWF who is very debilitated with COPD, oxygen-dependency and a chronic tremor who presents to the ER with SOB found to have exacerbation of COPD and panic attacks. Pt was admitted, she has a history of labial cyst, she has been squeezing and she was up in the cardiac step down unit transferred down to fourth floor today and feeling much better. We will change her nebulizer treatments to Xopenex due to tremor. Objective Exam Vital Signs Vital Signs Date Time Temp Pulse Resp B/P (MAP) Pulse Ox O2 Delivery O2 Flow Rate FiO2 12/11/20 10:36 92 Nasal Cannula 2.00 12/11/20 08:00 35.9 79 20 171/89 (116) 12/10/20 08:00 94 Capillary Refill : Less Than 3 Seconds Results/Procedures Lab Laboratory Tests 12/11/20 03:02 Patient resulted labs reviewed. KANG HUMPHREY DO December 11, 2020 05:42
[2020-12-11] MEDS: CATHETER FLUSH 10 ML SYR IV SCH (06:24)
[2020-12-11] MEDS: inSUlin ASPART (NovoLOG) 1 UNIT/0.01 ML (CHARGE PER UNIT) SC SCH (06:24)
[2020-12-11] MEDS: RT--FLUTICASONE/SALMETEROL 113-14 (AIRDUO RespiCLICK) IH SCH (06:40)
--- NOTE | 2020-12-11 06:56 | Pulmonary Progress Note ---
Subjective Time Seen by a Provider: 06:54 Subjective/Events-last exam NO complications noted. Sepsis Event Evaluation Height, Weight, BMI Height: 5'3.00" Weight: 139lbs. 0.0oz. 63.585880rb; 22.31 BMI Method:Stated Exam Exam Vital Signs Date Time Temp Pulse Resp B/P (MAP) Pulse Ox O2 Delivery O2 Flow Rate FiO2 12/11/20 06:40 92 Nasal Cannula 2.00 12/11/20 03:53 36.0 86 22 141/79 (99) 93 Nasal Cannula 2.00 12/11/20 02:01 91 Nasal Cannula 2.00 12/11/20 00:55 35.9 81 22 141/79 (99) 93 Nasal Cannula 2.00 12/10/20 21:32 90 Nasal Cannula 2.00 12/10/20 21:31 2.00 12/10/20 20:55 93 Nasal Cannula 2.00 12/10/20 19:42 36.4 85 16 126/65 (85) 90 Nasal Cannula 2.00 12/10/20 18:04 90 Nasal Cannula 2.00 12/10/20 16:37 35.8 78 17 143/70 (94) 90 Nasal Cannula 2.00 12/10/20 15:13 90 Nasal Cannula 2.00 12/10/20 11:19 36.7 91 20 129/78 (95) 92 Nasal Cannula 2.00 12/10/20 10:42 90 Nasal Cannula 2.00 12/10/20 10:40 90 Nasal Cannula 2.00 12/10/20 08:30 111 18 117/96 (103) 90 Nasal Cannula 2.00 12/10/20 08:00 99 29 121/61 (81) 93 Nasal Cannula 2.00 12/10/20 08:00 Nasal Cannula 2.00 94 12/10/20 07:40 36.4 12/10/20 07:30 Nasal Cannula 2.00 I & O 12/11/20 07:00 Intake Total 3225 ml Output Total 400 ml Balance 2825 ml Height & Weight Height: 5'3.00" Weight: 139lbs. 0.0oz. 63.766231sl; 22.31 BMI Method:Stated General Appearance: No Apparent Distress, Chronically ill, Thin HEENT: PERRL/EOMI, Normal ENT Inspection, Pharynx Normal, Moist Mucous Membranes Neck: Full Range of Motion, Normal Inspection, Non Tender Respiratory: Chest Non Tender, No Accessory Muscle Use, No Respiratory Distress, Decreased Breath Sounds, Wheezing Cardiovascular: Regular Rate, Rhythm, No Edema, No Gallop, No JVD, No Murmur, Normal Peripheral Pulses Capillary Refill: Less Than 3 Seconds Gastrointestinal: normal bowel sounds, non tender, soft Extremity: Normal Capillary Refill, Normal Inspection, Normal Range of Motion, Non Tender, No Calf Tenderness, No Pedal Edema Neurologic/Psychiatric: Alert, Oriented x3, No Motor/Sensory Deficits, Normal Mood/Affect Skin: Normal Color, Warm/Dry Lymphatic: No Adenopathy Results Lab Laboratory Tests 12/09/20 14:42 12/10/20 03:45 12/11/20 03:02 Assessment/Plan Assessment/Plan COPDAE -Solumedrol 40mg IV Q 6 currently -Change to prednisone taper. -Oxygen 2 liters (Pt uses 2 liters of oxygen at home.) Anxiety Leukocytosis - probably secondary to steroids -PCT neg -CXR is neg for acute infiltrates tobacco dependance -Education SONIA HOU DO December 11, 2020 06:56
[2020-12-11 08:00] VITALS: BP 171/89
[2020-12-11] MEDS ORDERED: metFORMIN 500 MG (GLUCOPHAGE) TAB PO SCH (08:00)
[2020-12-11] MEDS: LORATADINE (CLARITIN) 10 MG TAB PO SCH (08:26)
[2020-12-11] MEDS: NICOTINE PATCH REMOVAL TP SCH (08:32)
[2020-12-11] MEDS: NICOTINE 21 MG (NICODERM) PATCH TD SCH (08:34)
[2020-12-11] MEDS: SENNA W/DOCUSATE (SENOKOT S) TABLET PO SCH (08:34)
[2020-12-11] MEDS ORDERED: PANTOPRAZOLE 40 MG (PROTONIX) TAB PO SCH (09:00)
[2020-12-11] MEDS ORDERED: VITAMIN D3 125 MCG (5,000 UNITS) CAPSULE PO SCH (09:00)
[2020-12-11] MEDS ORDERED: LETROZOLE 2.5 MG (FEMARA) TAB PO SCH (09:00)
[2020-12-11] MEDS ORDERED: CALCIUM CARB + VIT D 600 MG (CALCARB + D) TAB PO SCH (09:00)
[2020-12-11] MEDS ORDERED: predniSONE 10 MG TAB PO SCH (09:00)
[2020-12-11] MEDS ORDERED: amLODIPine 5 MG (NORVASC) TAB PO SCH (09:00)
[2020-12-11] MEDS ORDERED: LORA-404 PO (10:47)
[2020-12-11] MEDS ORDERED: PRED10TA22 PO (10:47)
[2020-12-11] MEDS ORDERED: LORA10TA7 PO (10:47)
[2020-12-11] MEDS ORDERED: FLUT1AER4 IH (10:47)
--- NOTE | 2020-12-11 10:48 | Discharge Summary ---
Discharge Summary Hospital Course Was the Problem List Reviewed?: Yes Problems/Dx: (1) COPD with acute exacerbation Status: Acute (2) Hypoxia Status: Acute (3) Anxiety Status: Acute Hospital Course Date of Admission: December 09, 2020 at 17:57 Admission Diagnosis : Family Physician/Provider: Joie Duran Date of Discharge: 12/11/20 Discharge Diagnosis: AECOPD, anxiety, smoker Hospital Course: Hospital Course: Pt had a brief hospital course. She was admitted for exacerbation of COPD with panic attacks. Smoking cessation was counseled. Pt was placed on IV steroids which were tolerated. Overall she did very well, I restarted all of her home medications. Her chest X-ray remained clear, no evidence of any infectious etiology so she was discharged in improved condition, she did not need any home health and she already had oxygen set up. Labs and Pending Lab Test: Laboratory Tests 12/10/20 10:53: Glucometer 126H 12/10/20 12:44: Urine Color YELLOW, Urine Clarity CLEAR, Urine pH 8.0, Urine Specific [place] 1.015L, Urine Protein NEGATIVE, Urine Glucose (UA) NEGATIVE, Urine Ketones NEGATIVE, Urine Nitrite NEGATIVE, Urine Bilirubin NEGATIVE, Urine Urobilinogen 0.2, Urine Leukocyte Esterase NEGATIVE, Urine RBC (Auto) NEGATIVE, Urine RBC NONE, Urine WBC NONE, Urine Squamous Epithelial Cells 0-2, Urine Crystals NONE, Urine Bacteria NEGATIVE, Urine Casts NONE, Urine Mucus NEGATIVE, Urine Culture Indicated NO 12/10/20 15:44: Glucometer 170H 12/10/20 20:48: Glucometer 231H 12/11/20 03:02: White Blood Count 21.3H, Red Blood Count 4.19, Hemoglobin 11.1L, Hematocrit 35, Mean Corpuscular Volume 82, Mean Corpuscular Hemoglobin 27, Mean Corpuscular Hemoglobin Concent 32, Red Cell Distribution Width 16.1H, Platelet Count 267, Mean Platelet Volume 11.8, Immature Granulocyte % (Auto) 1, Neutrophils (%) (Auto) 87H, Lymphocytes (%) (Auto) 9L, Monocytes (%) (Auto) 4, Eosinophils (%) (Auto) 0, Basophils (%) (Auto) 0, Neutrophils # (Auto) 18.4H, Lymphocytes # (Auto) 1.8, Monocytes # (Auto) 0.9, Eosinophils # (Auto) 0.0, Basophils # (Auto) 0.0, Immature Granulocyte # (Auto) 0.1, Sodium Level 140, Potassium Level 4.5, Chloride Level 103, Carbon Dioxide Level 29, Anion Gap 8, Blood Urea Nitrogen 15, Creatinine 0.73, Estimat Glomerular Filtration Rate > 60, BUN/Creatinine Ratio 21, Glucose Level 180H, Calcium Level 9.8, Phosphorus Level 3.0, Magnesium Level 2.1 12/11/20 06:23: Glucometer 180H Microbiology 12/09/20 Influenza Types A,B Antigen ([facility]NER) - Final, Complete Home Meds Active Ativan (Lorazepam) 0.5 Mg Tablet 0.5 Mg PO BID PRN Prednisone 10 Mg Tab.ds.pk 10 Mg PO DAILY Take 6 tabs(60mg)daily,decrease by 1 tab(10MG)daily. Fluticasone-Salmeterol 113-14 (Fluticasone/Salmeterol) 1 Each Aer.pow.ba 0 Each IH RTBID Loratadine 10 Mg Tablet 10 Mg PO DAILY Reported Proair Hfa (Albuterol Sulfate) 1 Puff Puff 2 Puff IH Q4H PRN Iprat-Albut 0.5-3(2.5) mg/3 ml (Ipratropium/Albuterol Sulfate) 3 Ml Ampul.neb 3 Ml IH Q4H PRN Calcium 600 + Vit D3 Tablet (Calcium Carbonate/Vitamin D3) 1 Each Tablet 1 Each PO DAILY Vitamin D3 (Cholecalciferol (Vitamin D3)) 125 Mcg Tablet 125 Mcg PO DAILY Januvia (Sitagliptin Phosphate) 50 Mg Tablet 50 Mg PO DAILY Letrozole 2.5 Mg Tablet 2.5 Mg PO DAILY Pantoprazole Sodium 40 Mg Tablet.dr 40 Mg PO BID Amlodipine Besylate 5 Mg Tablet 5 Mg PO DAILY Atorvastatin Calcium 20 Mg Tablet 20 Mg PO HS Alendronate Sodium 70 Mg Tablet 70 Mg PO THUR Sertraline HCl 50 Mg Tablet 50 Mg PO HS TAKES 100MG +50MG TO EQUAL 150MG Ativan (Lorazepam) 0.5 Mg Tablet 0.5 Mg PO BID PRN Metformin HCl 1,000 Mg Tablet 1,000 Mg PO BID WITH MEALS Naproxen 375 Mg Tablet 375 Mg PO BID PRN Sertraline HCl 100 Mg Tablet 100 Mg PO HS TAKES 100MG +50MG TO EQUAL 150MG Assessment/Pt Instructions [facility] 1 week Discharge Planning: <30 minutes discharge planning Discharge Instructions Discharge Diet: No Restrictions Discharge Physical Examination Vital Signs Vital Signs Date Time Temp Pulse Resp B/P (MAP) Pulse Ox O2 Delivery O2 Flow Rate FiO2 12/11/20 10:36 92 Nasal Cannula 2.00 12/11/20 08:00 35.9 79 20 171/89 (116) 12/10/20 08:00 94 General Appearance: No Apparent Distress, WD/WN Respiratory: Lungs Clear, Normal Breath Sounds Neurologic/Psychiatric: Alert, Oriented x3, No Motor/Sensory Deficits, Normal Mood/Affect Allergies: Coded Allergies: No Known Drug Allergies (Unverified , 06/12/15) Discharge Summary Date of Admission December 09, 2020 at 17:57 Date of Discharge Discharge Date: December 11, 2020 Admission Diagnosis Assessment: AECOPD Tremor Chronic disability Plan: PT OT O2 Nebs Home meds IV steroids KANG HUMPHREY DO December 11, 2020 10:47
[2020-12-11 11:23] VITALS: BP 171/89
--- NOTE | 2020-12-11 12:54 | Physician Query Clarification ---
Physician Query-General Query to Physician: The medical record reflects the following clinical evidence: Clinical Indicators: SaO2 90% on 2 L ongoing, Chronic SOA with exertion, Home 02 at 2L baseline Risk Factor(s): COPD, Current Smoker, Requiring continuous Home O2 Treatment: IV Steroids, supplemental oxygen titration, Respiratory monitoring 1. Chronic respiratory failure, unsp w hypoxia or hypercapnia 2. Other explanation of clinical findings 3. Unable to determine (no explanation for clinical findings) Please clarify and document your clinical opinion in the progress notes and discharge summary including the definitive and/or presumptive diagnosis, (suspected or probable), related to the above clinical findings. Please include clinical findings supporting your diagnosis. Marina Burch [phone] PHYSICIAN RESPONSE: Based on the clinical findings in the record, please respond to the query above on this document as an addendum. Physician Response: Physician Response 1 If you have questions please contact: Drum Attendant: Ext: Thank you for your time and cooperation. Clinical Profile Grinder Technician/Drum Attendant This is a permanent part of the medical record MARINA BURCH December 11, 2020 12:54 KANG HUMPHREY DO December 11, 2020 21:43
[2020-12-11] MEDS ORDERED: SERTRALINE 100 MG (ZOLOFT) TAB PO SCH (21:00)
[2020-12-11] MEDS ORDERED: SERTRALINE 50 MG (ZOLOFT) TABLET PO SCH (21:00)
== END 2020-12-11 11:20 | disposition home or self-care (01) | DRG 191 ==
LOC: EDUNIT# 14:20 → ER 14:21 → ICU 17:57 → 4TH 12-10 09:57
PROVIDERS: ADMIT Internal Medicine; ATTEND Internal Medicine
DX: J44.1 Chronic obstructive pulmonary disease with (acute) exacerbation (principal); J96.11 Chronic respiratory failure with hypoxia; F41.0 Panic disorder [episodic paroxysmal anxiety]; R25.1 Tremor, unspecified; Z79.84 Long term (current) use of oral hypoglycemic drugs; Z20.822 Contact with and (suspected) exposure to COVID-19; Z79.899 Other long term (current) drug therapy; F17.210 Nicotine dependence, cigarettes, uncomplicated; E78.00 Pure hypercholesterolemia, unspecified; I10 Essential (primary) hypertension; G43.909 Migraine, unspecified, not intractable, without status migrainosus; M19.90 Unspecified osteoarthritis, unspecified site; E11.9 Type 2 diabetes mellitus without complications; F32.9 Major depressive disorder, single episode, unspecified; L40.9 Psoriasis, unspecified; D72.829 Elevated white blood cell count, unspecified; T38.0X5A Adverse effect of glucocorticoids and synthetic analogues, initial encounter
CPT/HCPCS: 36415; 71045; 80048; 80076; 81000; 82947; 83735; 84100; 84145; 85007; 85025; 85027; 86141; 87636; 87804; 94640; 94644; 94664; 94760

== ENCOUNTER → 2021-06-16 | Outpatient (CLI) | payer MEDICARE ==
[~2021-06-16] MED LIST changes: +ALEN70TA80 PO; +AMLO-250 PO; +ATOR20TA66 PO; +CALC-250 PO; +CALC-902 PO; +FLUT1AER4 IH; +IPRA3AMP31 IH; +LETR2.5T6 PO; +LORA-404 PO; +LORA10TA7 PO; -MAGN400T8 PO; +METF-399 PO; +MGX400T PO; +NAPR-1084 PO; +PANT40TA52 PO; +PRED10TA22 PO; +RT-ALBUINH IH; +SERT-413 PO; +SITA50TA PO
--- NOTE | 2021-06-16 18:37 | Diagnostic Imaging Report ---
EXAMINATION: Chest (PA and lateral). CLINICAL INDICATION: 60-year-old female, shortness of breath. COPD exacerbation. COMPARISON: Chest radiograph December 09, 2020. FINDINGS: Size and mediastinal contours are unremarkable. There is no identified pneumothorax. There is no pleural effusion. There is no identified focal airspace consolidation. There are surgical clips in the right and left axilla. IMPRESSION: No identified acute cardiopulmonary abnormality. Dictated by: Dictated on workstation # [id number]
== END ==
LOC: RAD 17:30
PROVIDERS: ATTEND Nurse Practitioner Family
DX: J44.1 Chronic obstructive pulmonary disease with (acute) exacerbation (principal)
CPT/HCPCS: 71046

== ENCOUNTER 2021-07-24 02:30 | Inpatient (IN) | payer MEDICARE ==
[~2021-07-24] VITALS: Ht 162.6 cm; Wt 80.0 kg
[2021-07-24] VITALS (23 sets, daily range): BP systolic 75–163; BP diastolic 41–114
[2021-07-24 03:00] LABS: BASOPHILS # (AUTO) 0.1 10^3/uL (0.0-0.1); BASOPHILS % (AUTO) 0 % (0-10); EOSINOPHILS # (AUTO) 0.9 10^3/uL (0.0-0.3); EOSINOPHILS % (AUTO) 7 % (0-10); HEMATOCRIT 37 % (35-52); HEMOGLOBIN 11.8 g/dL (11.5-16.0); LYMPHOCYTES # (AUTO) 1.3 10^3/uL (1.0-4.0); LYMPHOCYTES % (AUTO) 10 % (12-44); MEAN CORPUSCULAR HEMOGLOBIN 26 pg (25-34); MEAN CORPUSCULAR HGB CONC 32 g/dL (32-36); MEAN CORPUSCULAR VOLUME 82 fL (80-99); MEAN PLATELET VOLUME 11.4 fL (9.0-12.2); MONOCYTES # (AUTO) 0.9 10^3/uL (0.0-1.0); MONOCYTES % (AUTO) 7 % (0-12); NEUTROPHILS # (AUTO) 9.6 10^3/uL (1.8-7.8); NEUTROPHILS % (AUTO) 75 % (42-75); PLATELET COUNT 273 10^3/uL (130-400); WHITE BLOOD COUNT 12.8 10^3/uL (4.3-11.0)
[2021-07-24 03:07] LABS: BILIRUBIN,URINE NEGATIVE (NEGATIVE); CLARITY,URINE CLEAR; COLOR,URINE YELLOW; GLUCOSE, URINE (UA) NEGATIVE (NEGATIVE); KETONES,URINE NEGATIVE (NEGATIVE); LEUKOCYTE ESTERASE ,URINE NEGATIVE (NEGATIVE); NITRITE,URINE NEGATIVE (NEGATIVE); PH,URINE 5.5 (5-9); PROTEIN,URINE NEGATIVE (NEGATIVE)
[2021-07-24 03:08] LABS: ALBUMIN 4.4 GM/DL (3.2-4.5); POTASSIUM 3.6 MMOL/L (3.6-5.0)
[2021-07-24 03:09] LABS: CALCIUM 9.7 MG/DL (8.5-10.1)
[2021-07-24 03:10] LABS: TOTAL PROTEIN 7.3 GM/DL (6.4-8.2)
[2021-07-24 03:12] LABS: BILIRUBIN,TOTAL 0.3 MG/DL (0.1-1.0)
[2021-07-24 03:14] LABS: CREATININE SERUM 0.74 MG/DL (0.60-1.30)
[2021-07-24] MEDS ORDERED: methylPREDNISolone 125 MG (Solu-MEDROL) VIAL IV STA (03:16)
--- NOTE | 2021-07-24 03:16 | ED General ---
General Chief Complaint: COVID19 Suspect/Confirmed Stated Complaint: COPD EXACERBATION Nursing Triage Note: PT TO ED BY [facility] WITH C/O COPD EXACERBATION. EMS REPORTS UPON THEIR ARRIVAL, PT 69% ON 3L NC. PT WAS GIVEN DUONEB TX EN ROUTE, EMS REPORTS O2 SAT SHANELL TO 95% ON 3L NC. UPON ARRIVAL, O2 SAT 87% ON 4 L NC. PT REPORTS SHE HAS HAD INCREASED SOB OVER THE LAST SEVERAL DAYS WELL A "SCRATCHY THROAT." ALSO REPORTS SHE HAS BEEN AROUND HER GRANDKIDS WHO HAVE HAD A COLD, BUT TESTED NEGATIVE FOR COVID-19. PT DENIES FEVER, N/V/D. REPORTS SHE WEARS 2L NC AT HOME AND 3L NC WHEN AMBULATING. Source of Information: Patient Exam Limitations: No Limitations History of Present Illness Date Seen by Provider: Jul 24, 2021 Time Seen by Provider: 02:30 Initial Comments Here by [facility] with report of hypoxia and difficulty breathing. Initial O2 sat in the field was around 60% on her normal 3 L. They gave DuoNeb and stated her O2 sat went to 94%. On arrival she had O2 sat in the low 80s on typical 3 L and improved to 90% on 6 L. Patient denies fever or chills but states that she has not been feeling well for about 3 days. Adamantly denies Covid but admits that she is not vaccinated. Apparently her grandchildren have been sick but they were tested yesterday and found to not have Covid. Admits to being a smoker but states that she is only able to smoke about 5 cigarettes a day. Does complain of sore throat. Denies nausea, vomiting or diarrhea. Normally she is on 2 L when resting and 3 L when walking but has required 3 to 4 L at home over the last few days. She has done several breathing treatments at home and that has not helped. Has history of COPD and COPD exacerbations. Follows with [facility]. Timing/Duration: 3-4 Days, Getting Worse Severity: Moderate Associated Systoms: Cough; No Fever/Chills; Shortness of Air Allergies and Home Medications Allergies Coded Allergies: No Known Drug Allergies (Unverified , 06/12/15) Patient Home Medication List Home Medication List Reviewed: Yes Albuterol Sulfate (Proair Hfa) 1 Puff Puff, 2 PUFF IH Q4H PRN for SHORTNESS OF BREATH, (Reported) Entered as Reported by: EVARISTO LAROSE on 12/10/20953 Alendronate Sodium (Alendronate Sodium) 70 Mg Tablet, 70 MG PO THUR, (Reported) Entered as Reported by: EVARISTO LAROSE on 12/10/20953 Amlodipine Besylate (Amlodipine Besylate) 5 Mg Tablet, 5 MG PO DAILY, (Reported) Entered as Reported by: EVARISTO LAROSE on 12/10/20953 Atorvastatin Calcium (Atorvastatin Calcium) 20 Mg Tablet, 20 MG PO HS, (Reported) Entered as Reported by: EVARISTO LAROSE on 12/10/20953 Calcium Carbonate/Vitamin D3 (Calcium 600 + Vit D3 Tablet) 1 Each Tablet, 1 EACH PO DAILY, (Reported) Entered as Reported by: EVARISTO LAROSE on 12/10/20953 Cholecalciferol (Vitamin D3) (Vitamin D3) 125 Mcg Tablet, 125 MCG PO DAILY, (Reported) Entered as Reported by: EVARISTO LAROSE on 12/10/20953 Fluticasone/Salmeterol (Fluticasone-Salmeterol 113-14) 1 Each Aer.pow.ba, 0 EACH IH RTBID Prescribed by: KANG HUMPHREY on 12/11/201046 Ipratropium/Albuterol Sulfate (Iprat-Albut 0.5-3(2.5) mg/3 ml) 3 Ml Ampul.neb, 3 ML IH Q4H PRN for SHORTNESS OF BREATH, (Reported) Entered as Reported by: EVARISTO LAROSE on 12/10/20953 Letrozole (Letrozole) 2.5 Mg Tablet, 2.5 MG PO DAILY, (Reported) Entered as Reported by: EVARISTO LAROSE on 12/10/20953 Loratadine (Loratadine) 10 Mg Tablet, 10 MG PO DAILY Prescribed by: KANG HUMPHREY on 12/11/20 104 Lorazepam (Ativan) 0.5 Mg Tablet, 0.5 MG PO BID PRN for ANXIETY Prescribed by: KANG HUMPHREY on 12/11/20 104 Metformin HCl (Metformin HCl) 1,000 Mg Tablet, 1,000 MG PO BID WITH MEALS, (Reported) Entered as Reported by: EVARISTO LAROSE on 12/10/20953 Naproxen (Naproxen) 375 Mg Tablet, 375 MG PO BID PRN for PAIN-MILD (1-4), (Reported) Entered as Reported by: EVARISTO LAROSE on 12/10/20953 Pantoprazole Sodium (Pantoprazole Sodium) 40 Mg Tablet.dr, 40 MG PO BID, (Reported) Entered as Reported by: EVARISTO LAROSE on 12/10/20953 Prednisone (Prednisone) 10 Mg Tab.ds.pk, 10 MG PO DAILY Prescribed by: KANG HUMPHREY on 12/11/20 1047 Sertraline HCl (Sertraline HCl) 100 Mg Tablet, 100 MG PO HS, (Reported) Entered as Reported by: ABHI ANSARI on 08/20/15 1723 Sertraline HCl (Sertraline HCl) 50 Mg Tablet, 50 MG PO HS, (Reported) Entered as Reported by: EVARISTO LAROSE on 12/10/20953 Sitagliptin Phosphate (Januvia) 50 Mg Tablet, 50 MG PO DAILY, (Reported) Entered as Reported by: EVARISTO LAROSE on 12/10/20953 Review of Systems Review of Systems Constitutional: see HPI; No chills, No fever EENTM: nose congestion, throat pain Respiratory: cough, short of breath Cardiovascular: No edema, No palpitations Gastrointestinal: No nausea, No vomiting Genitourinary: no symptoms reported Musculoskeletal: no symptoms reported All Other Systems Reviewed Negative Unless Noted: Yes Past Jwsmigj-Jvkjyl-Pefgor Hx Patient Social History Tobacco Use?: Yes Tobacco type used: Cigarettes Smoking Status: Current Everyday Smoker Use of E-Cig and/or Vaping dev: No Substance use?: No Alcohol Use?: Yes Alcohol type: Wine Alcohol Frequency: Once in a while Pt feels they are or have been: No Immunizations Up To Date PED Vaccines UTD: Yes Influenza Vaccine Up-to-Date: No; Not Current First/Initial COVID19 Vaccinat: N/A Past Medical History Surgery/Hospitalization HX: COPD, DM 2 BILAT MASTECTOMY Surgeries: Yes (HERNIA, BI LAT MASECTOMY) Abdominal, Breast, Tubal Ligation Respiratory: Yes (Uses oxygen at 2 L continuously) COPD Cardiac: Yes High Cholesterol, Hypertension, Syncope Neurological: Yes (VASOVAGAL SYNCOPE VS SEIZURE) Headaches /Migraines 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: Tubal Ligation, Menopausal Genitourinary: No Gastrointestinal: Yes (ESOPHAGEAL SPASMS) Musculoskeletal: Yes Arthritis Endocrine: Yes Diabetes, Non-Insulin dep HEENT: No Cancer: Yes Breast Did You Recieve Any Treatments: Yes What Type of Treatment Did You: Surgical Intervention Psychosocial: Yes Anxiety, Depression Integumentary: Yes Psoriasis Blood Disorders: No Family Medical History Reviewed Nursing Family Hx No Pertinent Family Hx Physical Exam-Suspected Sepsis Physical Exam Vital Signs Vital Signs - First Documented Capillary Refill : Less Than 3 Seconds Blood Pressure Mean: 102 Height, Weight, BMI Height: 5'3.00" Weight: 139lbs. 0.0oz. 63.877992zc; 23.00 BMI Method:Stated General Appearance: No Apparent Distress, Chronically ill HEENT: PERRL/EOMI, Pharyngeal Erythema Neck: Non Tender, Supple Respiratory: No Accessory Muscle Use, Decreased Breath Sounds Cardiovascular: No Murmur, Tachycardia Gastrointestinal: Non Tender, Soft Back: Normal Inspection, No CVA Tenderness, No Vertebral Tenderness Extremity: Normal Range of Motion, Non Tender, No Pedal Edema Neurologic/Psychiatric: Alert, Oriented x3 Skin: normal color, warm/dry Focused Exam Lactate Level 07/24/21 02:38: Lactic Acid Level 2.93*H 07/24/21 04:30: Lactic Acid Level 3.06*H Lactic Acid Level Laboratory Tests Test 07/24/21 02:38 07/24/21 04:30 Lactic Acid Level 2.93 MMOL/L (0.50-2.00) *H 3.06 MMOL/L (0.50-2.00) *H Progress/Results/Core Measures Suspected Sepsis SIRS Temperature: Pulse: 107 Respiratory Rate: 27 Laboratory Tests 07/24/21 02:38: White Blood Count 12.8H Blood Pressure 158 /74 Mean: 102 07/24/21 02:38: Lactic Acid Level 2.93*H 07/24/21 04:30: Lactic Acid Level 3.06*H Laboratory Tests 07/24/21 02:38: Creatinine 0.74, INR Comment 0.9, Platelet Count 273, Total Bilirubin 0.3 Results/Orders Lab Results Laboratory Tests Test 07/24/21 02:38 07/24/21 02:42 07/24/21 02:58 07/24/21 04:30 Range/Units White Blood Count 12.8 H 4.3-11.0 10^3/uL Red Blood Count 4.56 3.80-5.11 10^6/uL Hemoglobin 11.8 11.5-16.0 g/dL Hematocrit 37 35-52 % Mean Corpuscular Volume 82 80-99 fL Mean Corpuscular Hemoglobin 26 25-34 pg Mean Corpuscular Hemoglobin Concent 32 32-36 g/dL Red Cell Distribution Width 15.7 H 10.0-14.5 % Platelet Count 273 130-400 10^3/uL Mean Platelet Volume 11.4 9.0-12.2 fL Immature Granulocyte % (Auto) 0 % Neutrophils (%) (Auto) 75 42-75 % Lymphocytes (%) (Auto) 10 L 12-44 % Monocytes (%) (Auto) 7 0-12 % Eosinophils (%) (Auto) 7 0-10 % Basophils (%) (Auto) 0 0-10 % Neutrophils # (Auto) 9.6 H 1.8-7.8 10^3/uL Lymphocytes # (Auto) 1.3 1.0-4.0 10^3/uL Monocytes # (Auto) 0.9 0.0-1.0 10^3/uL Eosinophils # (Auto) 0.9 H 0.0-0.3 10^3/uL Basophils # (Auto) 0.1 0.0-0.1 10^3/uL Immature Granulocyte # (Auto) 0.1 0.0-0.1 10^3/uL Prothrombin Time 12.5 12.2-14.7 SEC INR Comment 0.9 0.8-1.4 Activated Partial Thromboplast Time 28 24-35 SEC D-Dimer < 0.27 0.00-0.49 UG/ML Sodium Level 139 135-145 MMOL/L Potassium Level 3.6 3.6-5.0 MMOL/L Chloride Level 98 98-107 MMOL/L Carbon Dioxide Level 26 21-32 MMOL/L Anion Gap 15 H 5-14 MMOL/L Blood Urea Nitrogen 9 7-18 MG/DL Creatinine 0.74 0.60-1.30 MG/DL Estimat Glomerular Filtration Rate 80 BUN/Creatinine Ratio 12 Glucose Level 186 H 70-105 MG/DL Lactic Acid Level 2.93 *H 3.06 *H 0.50-2.00 MMOL/L Calcium Level 9.7 8.5-10.1 MG/DL Corrected Calcium 9.4 8.5-10.1 MG/DL Total Bilirubin 0.3 0.1-1.0 MG/DL Aspartate Amino Transf (AST/SGOT) 18 5-34 U/L Alanine Aminotransferase (ALT/SGPT) 24 0-55 U/L Alkaline Phosphatase 71 40-136 U/L C-Reactive Protein High Sensitivity 0.55 H 0.00-0.50 MG/DL Total Protein 7.3 6.4-8.2 GM/DL Albumin 4.4 3.2-4.5 GM/DL Procalcitonin 0.04 <0.10 NG/ML Influenza Type A (RT-PCR) Not Detected Not Detecte Influenza Type B (RT-PCR) Not Detected Not Detecte SARS-CoV-2 RNA (RT-PCR) Not Detected Not Detecte Urine Color YELLOW Urine Clarity CLEAR Urine pH 5.5 5-9 Urine Specific [place] 1.025 H 1.016-1.022 Urine Protein NEGATIVE NEGATIVE Urine Glucose (UA) NEGATIVE NEGATIVE Urine Ketones NEGATIVE NEGATIVE Urine Nitrite NEGATIVE NEGATIVE Urine Bilirubin NEGATIVE NEGATIVE Urine Urobilinogen 0.2 < = 1.0 MG/DL Urine Leukocyte Esterase NEGATIVE NEGATIVE Urine RBC (Auto) NEGATIVE NEGATIVE Urine RBC NONE /HPF Urine WBC 0-2 /HPF Urine Squamous Epithelial Cells 0-2 /HPF Urine Crystals NONE /LPF Urine Bacteria TRACE /HPF Urine Casts PRESENT /LPF Urine Hyaline Casts RARE /LPF Urine Mucus NEGATIVE /LPF Urine Culture Indicated CULTURE PENDING My Orders Orders - JORDON REGALADO MD Cbc With Automated Diff (07/24/21 02:44) Comprehensive Metabolic Panel (07/24/21 02:44) Blood Culture (07/24/21 02:44) Sputum Culture (07/24/21 02:44) Urinalysis (07/24/21 02:44) Urine Culture (07/24/21 02:44) Protime With Inr (07/24/21 02:44) Partial Thromboplastin Time (07/24/21 02:44) Chest 1 View, Ap/Pa Only (07/24/21 02:44) Ed Iv/Invasive Line Start (07/24/21 02:44) Vital Signs Adult Sepsis Patie Q15M (07/24/21 02:44) O2 (07/24/21 02:44) Remove Rings In Anticipation O (07/24/21 02:44) Lactic Acid Analyzer (07/24/21 02:44) Influenza A And B By Pcr (07/24/21 02:44) Fibrin Degradation Products (07/24/21 02:44) Procalcitonin (Pct) (07/24/21 02:44) Hs C Reactive Protein (07/24/21 02:44) Covid 19 Inhouse Test (07/24/21 02:44) Isolation Central Supply Req (07/24/21 02:44) Methylprednisolone Sod Succ (Solu-Medrol (07/24/21 03:16) Albuterol Pre-Mix Nebs (Rt) (Proventil (07/24/21 03:48) Lactated Ringers (Lr 1000 Ml Iv Solution (07/24/21 03:48) Svn Small Volume Nebulizer (07/24/21 03:48) Albuterol Pre-Mix Nebs (Rt) (Proventil (07/24/21 05:31) Albuterol/Ipra Inhalation Soln (Duoneb I (07/24/21 05:45) Svn Small Volume Nebulizer (07/24/21 05:31) Svn Small Volume Nebulizer (07/24/21 05:31) Vital Signs/I&O 07/24/21 07/24/21 07/24/21 02:32 02:32 02:35 Temp 36.8 Pulse 107 Resp 27 B/P (MAP) 158/74 (102) Pulse Ox 87 92 O2 Delivery Nasal Cannula Nasal Cannula Nasal Cannula O2 Flow Rate 4.00 3.00 6.00 Capillary Refill : Less Than 3 Seconds Blood Pressure Mean: 102 Progress Note : Progress Note Seen and evaluated. IV, labs, blood cultures and lactic acid ordered. COVID-19 testing as well as influenza testing ordered. Patient on O2 at 6 L via nasal cannula. We will initiate further nebulized treatments if Covid is negative and or if needed. Solu-Medrol 125 mg IV ordered. Monitor patient. 0347: Covid is negative. Patient is still requiring 6 L of oxygen. Lactic acid noted to be elevated which I believe is related to hypoxia from COPD exacerbation and not infective process as there are no infiltrates on x-ray and UA is negative with only slightly elevated white count. Do not believe she has bacterial component for infection currently. We will give 1 L of LR as her blood pressure was 89 systolic x1 and we will see how she does with that. Albuterol neb x3 will be done now. She did receive 1 DuoNeb via EMS and this would complete the 4 treatments and will see how she is doing at that point. Monitor patient. 0527: I discussed the case with Dr. Humphrey as patient was doing better but now O2 sat is down to 88 to 90% on 4 L. Lactic acid was slightly elevated at 3 from previous. I still believe this is related to work of breathing and not infectious process as her procalcitonin and CRP are low and x-ray does not show any infiltrate. UA is negative. Blood pressure has stabilized nicely at 110- 120 systolic range. Patient is unvaccinated and I did talk with her at length about that and she will consider vaccine. Admit, inpatient status. Patient and family agree with plan. Dr. Humphrey is requesting cardiac stepdown. She will place orders. 0537: We we will initiate hour-long nebulizer treatment and sent her to stepdown to complete treatment. Diagnostic Imaging Diagonstic Imaging: Xray Plain Films/CT/US/NM/MRI: chest Comments No obvious infiltrate. No pneumothorax. Chronic lung disease noted. [facility] [place] NAME: AN ZAZUETA [facility] REC#: [id number] PT STATUS: REG ER : 1960 PHYSICIAN: JORDON REGALADO MD ADMIT DATE: 07/24/21/ER Draft Date of Exam:07/24/21 CHEST 1 VIEW, AP/PA ONLY HISTORY: Shortness of air, cough and congestion TECHNIQUE: Frontal view of the chest COMPARISON: 06/16/2021 FINDINGS: Lung volumes are large. No consolidation is seen. There is no pleural effusion or pneumothorax. The cardiac silhouette is normal in size. IMPRESSION: 1. No acute pulmonary abnormality. Dictated on workstation # [id number] Dict: 07/24/21 0504 Trans: 07/24/21 0517 [id number] Interpreted by: KRYSTAL ALDRICH MD Electronically signed by: Departure Communication (Admissions) Time/Spoke to Admitting Phy: 05:27 Impression Primary Impression: COPD with acute exacerbation Additional Impression: Hypoxia Disposition: ADMITTED INPATIENT Condition: Stable Admissions Decision to Admit Reason: Admit from ER (General) Decision to Admit/Date: Jul 24, 2021 Time/Decision to Admit Time: 05:27 Departure-Patient Inst. Referrals: JEFFERSON AQUINO (PCP/Family) Primary Care Physician JORDON REGALADO MD Jul 24, 2021 03:16
[2021-07-24 03:30] LABS: FIBRIN DEGRADATION PRODUCTS < 0.27 UG/ML (0.00-0.49); INR 0.9 (0.8-1.4); PARTIAL THROMBOPLASTIN TIME 28 SEC (24-35); PROTHROMBIN TIME PATIENT 12.5 SEC (12.2-14.7)
[2021-07-24 03:40] LABS: BACTERIA,URINE TRACE /HPF; HYALINE CASTS, URINE RARE /LPF; SQUAMOUS EPITHELIAL CELL,UR 0-2 /HPF; WBC,URINE 0-2 /HPF
[2021-07-24] MEDS ORDERED: RT-ALBUTEROL SULF 2.5 MG/3 ML PRE-MIX VIAL INH STA ×2 (03:48→05:31)
[2021-07-24] MEDS ORDERED: LACTATED RINGERS 1,000 ML IV STA (03:48)
--- NOTE | 2021-07-24 05:18 | Diagnostic Imaging Report ---
HISTORY: Shortness of air, cough and congestion TECHNIQUE: Frontal view of the chest COMPARISON: 06/16/2021 FINDINGS: Lung volumes are large. No consolidation is seen. There is no pleural effusion or pneumothorax. The cardiac silhouette is normal in size. IMPRESSION: 1. No acute pulmonary abnormality. Dictated by: Dictated on workstation # [id number]
[2021-07-24] MEDS ORDERED: RT-ALBUTEROL/IPRATROPIUM 3 ML (DUONEB) VIAL INH ONE (05:45)
[2021-07-24] MEDS ORDERED: LACTULOSE SYRUP 10GM/15ML (ENULOSE) 30ML UDC PO PRN (06:00)
[2021-07-24] MEDS ORDERED: ONDANSETRON 4 MG (ZOFRAN) ORAL DISSOLVE TAB PO PRN (06:00)
[2021-07-24] MEDS ORDERED: MELATONIN 3 MG TABLET PO PRN (06:00)
[2021-07-24] MEDS ORDERED: CALCIUM CARBONATE 500 MG (TUMS) TAB.CHEW PO PRN (06:00)
[2021-07-24] MEDS ORDERED: MILK OF MAGNESIA 400 MG/5 ML 30 ML UDC PO PRN (06:00)
[2021-07-24] MEDS ORDERED: diphenhydrAMINE 25 MG TAB (BENADRYL) PO PRN (06:00)
[2021-07-24] MEDS ORDERED: BISACODYL 10 MG SUPP (DULCOLAX) PR PRN (06:00)
[2021-07-24] MEDS ORDERED: ANTACID SUSP 30 ML UDC (MYLANTA) PO PRN (06:00)
[2021-07-24] MEDS ORDERED: LOPERAMIDE 2 MG (IMODIUM) TABLET PO PRN (06:00)
[2021-07-24] MEDS ORDERED: polyethylene glycoL POWDER 17 GM (MIRALAX) PACK PO PRN (06:00)
[2021-07-24] MEDS ORDERED: ONDANSETRON 4 MG/2 ML (SDV) Z0FRAN IV PRN (06:00)
[2021-07-24] MEDS ORDERED: ACETAMINOPHEN 325 MG TABLET PO PRN (06:00)
[2021-07-24] MEDS ORDERED: diphenhydrAMINE 50 MG/ML INJ (BENADRYL) IVP PRN (06:00)
[2021-07-24] MEDS ORDERED: DOCUSATE SODIUM 100 MG (COLACE) CAP PO PRN (06:00)
[2021-07-24] MEDS ORDERED: RT-ALBUTEROL SULF 2.5 MG/3 ML PRE-MIX VIAL INH SCH (06:00)
[2021-07-24] MEDS ORDERED: guaiFENesin/CODEINE (ROBITUSSIN AC) 10ML UDC PO PRN (06:00)
[2021-07-24] MEDS ORDERED: BENZONATATE 100 MG (TESSALON) CAPSULE PO PRN (06:00)
[2021-07-24] MEDS: NS IV 1000 ML 1,000 ML IV SCH ×5 (06:37→20:18)
[2021-07-24] MEDS: methylPREDNISolone 40 MG/ML (Solu-MEDROL) VIAL IV SCH ×3 (06:37→17:21)
[2021-07-24] MEDS: IBUPROFEN TABLET 200 MG TAB PO SCH ×3 (06:38→17:14)
[2021-07-24] MEDS: inSUlin ASPART (NovoLOG) 1 UNIT/0.01 ML (CHARGE PER UNIT) SC SCH ×3 (06:38→17:23)
[2021-07-24 07:09] LABS: ABG BASE EXCESS 3.4 MMOL/L (-2.5-2.5); ABG OXYGEN SATURATION 90 % (94-100); ABG PCO2 50 MMHG (35-45); ABG PH 7.37 (7.37-7.43); ABG PO2 58 MMHG (79-93); ABG TCO2 29.9 MMOL/L (21.0-31.0)
[2021-07-24 07:11] LABS: ALLENS TEST POSITIVE; INSPIRED O2 4 L; PATIENT TEMP 36.4; VENTILATOR NO
--- NOTE | 2021-07-24 07:40 | History & Physical-Hospitalist ---
History of Present Illness HPI/Chief Complaint CC: Respiratory failure HPI: This is a 60yoWF w/h/o COPD on home O2 13/02, current smoker, DM on Metformin, HTN, anxiety and depression who presents to the [facility] from ER with dyspnea and was found to have acute on chronic respiratory failure and hypercapnia and hypoxemia on ABG meeting criteria for biPAP but moved to ICU when respiratory failure noted and more elevated lactic acidosis likely due to Metformin and hypoxemia and work of breathing. Patient denies pain. Lives alone in trailer beside her daughter. Updated EICU on need to move to ICU. Source: patient, RN/MD Exam Limitations: clinical condition (on biPAP) Date Seen 07/24/21 Time Seen by a Provider: 09:30 Attending Physician Leann Spence Alison L Arnp Referring Physician Date of Admission Jul 24, 2021 at 05:47 Home Medications & Allergies Home Medications Reviewed patient Home Medication Reconciliation performed by pharmacy medication reconciliations operator technician and/or nursing. Patients Allergies have been reviewed. Allergies Allergies Coded Allergies No Known Drug Allergies ([id number]/20/15) Past Atspmub-Seqkpr-Jidpms Hx Patient Social History Marrital Status: single Employed/Student: unemployed Tobacco Use?: Yes Tobacco type used: Cigarettes Smoking Status: Current Everyday Smoker Use of E-Cig and/or Vaping dev: No Substance use?: No Alcohol Use?: Yes Alcohol type: Wine Alcohol Frequency: Once in a while Pt feels they are or have been: No Immunizations Up To Date First/Initial COVID19 Vaccinat: N/A PED Vaccines UTD: Yes Current Status status: No Communicates: Verbally Primary Language: Tamazight Preferred Spoken Language: Tamazight Is interpretation needed?: No Past Medical History Surgeries: Abdominal, Breast, Tubal Ligation COPD High Cholesterol, Hypertension, Syncope Headaches /Migraines 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: Tubal Ligation, Menopausal Arthritis Diabetes, Non-Insulin dep Breast Did You Recieve Any Treatments: Yes What Type of Treatment Did You: Surgical Intervention Anxiety, Depression Psoriasis Blood Disorders: No COPD O2 dependent Tremor Smoker Breast cancer Family Medical History Reviewed Nursing Family Hx No Pertinent Family Hx Review of Systems Constitutional: see HPI EENTM: no symptoms reported Respiratory: dyspnea on exertion, short of breath, wheezing Cardiovascular: no symptoms reported Gastrointestinal: no symptoms reported Genitourinary: no symptoms reported Musculoskeletal: no symptoms reported Skin: no symptoms reported Psychiatric/Neurological: Anxiety, Depressed All Other Systems Reviewed Negative Unless Noted: Yes Physical Exam Physical Exam Vital Signs Vital Signs - First Documented 07/24/21 06:48 FiO2 4 Capillary Refill : Less Than 3 Seconds Height, Weight, BMI Height: 5'3.00" Weight: 139lbs. 0.0oz. 63.356451ei; 23.48 BMI Method:Stated General Appearance: Anxious, Chronically ill, Moderate Distress, Thin Eyes: Right Eye Normal Inspection, Right Eye PERRL HEENT: PERRL/EOMI, Normal ENT Inspection, Pharynx Normal, Moist Mucous Membranes Neck: Full Range of Motion, Normal Inspection, Non Tender Respiratory: Chest Non Tender, No Respiratory Distress, Accessory Muscle Use, Crackles, Decreased Breath Sounds, Wheezing, Other (on biPAP) Cardiovascular: No Edema, No Gallop, No JVD, No Murmur, Normal Peripheral Pulses, Tachycardia Gastrointestinal: Normal Bowel Sounds, No Organomegaly, No Pulsatile Mass, Non Tender, Soft Back: Normal Inspection, No CVA Tenderness, No Vertebral Tenderness Extremity: Normal Capillary Refill, Normal Inspection, Normal Range of Motion, Non Tender, No Calf Tenderness, No Pedal Edema Neurologic/Psychiatric: Alert, Oriented x3, No Motor/Sensory Deficits, Normal Mood/Affect Skin: Normal Color, Warm/Dry Lymphatic: No Adenopathy Results Results/Procedures Labs Laboratory Tests 07/24/21 02:38 Patient resulted labs reviewed. Assessment/Plan Admission Diagnosis Assessment: Acute on chronic respiratory failure AECOPD Lactic acidosis due to Metformin and hypoxemia and respiratory fatigue no evidence of sepsis or bacterial source negative PCT and negative CXR Current smoker Chronic hypoxemia uses O2 2-3 L/min chronically DM on Metformin HTN Osteoporosis GERD Depression Anxiety placing on Precedex Breast cancer hx Frail status Chronic disability Plan: Move to ICU IVF EICU consult Lovenox biPAP Precedex High risk for intubation Admission Status: Inpatient Order (span 2 midnights) Reason for Inpatient Admission: Resp failure Diagnosis/Problems Diagnosis/Problems (1) Acute and chronic respiratory failure (2) Lactic acid acidosis (3) Smoker (4) HX: breast cancer (5) Hypertension (6) Hyperlipemia (7) Diabetes (8) Adverse effect of metformin (9) Hypercapnia (10) Hypoxemia (11) Oxygen dependent (12) COPD with acute exacerbation Status: Acute (13) Hypoxia Status: Acute (14) Anxiety Status: Acute LEANN SPENCE DO Jul 24, 2021 07:40
[2021-07-24] MEDS ORDERED: NS IV 1000 ML 1,000 ML IV SCH (07:45)
[2021-07-24] MEDS ORDERED: ADVAIR HFA 115/21 MCG INHALER 8 GM IH SCH (08:00)
[2021-07-24] MEDS ORDERED: RT--FLUTICASONE/SALMETEROL 113-14 (AIRDUO RespiCLICK) IH SCH (08:00)
[2021-07-24] MEDS: MONTELUKAST 10 MG (SINGULAIR) TAB PO SCH (08:07)
[2021-07-24] MEDS: ENOXAPARIN 40 MG/0.4 ML (LOVENOX) SYR SC SCH (08:07)
[2021-07-24] MEDS: DOCUSATE SODIUM 100 MG (COLACE) CAP PO SCH ×2 (08:07→21:25)
[2021-07-24] MEDS: LORATADINE (CLARITIN) 10 MG TAB PO SCH (08:07)
[2021-07-24] MEDS ORDERED: RT-ALBUTEROL/IPRATROPIUM 3 ML (DUONEB) VIAL INH PRN (08:30)
[2021-07-24] MEDS: SENNOSIDES 8.6 MG (SENOKOT) TAB PO SCH ×2 (09:54→21:26)
[2021-07-24] MEDS: SENNA W/DOCUSATE (SENOKOT S) TABLET PO SCH ×2 (09:54→21:26)
[2021-07-24] MEDS: RT-ALBUTEROL/IPRATROPIUM 3 ML (DUONEB) VIAL INH SCH ×4 (10:21→21:20)
[2021-07-24] MEDS: DexMEDEtomidine 250 ML DRIP 250 ML IV SCH (10:24)
[2021-07-24] MEDS ORDERED: PROPOFOL DRIP (ICU) 100 ML IV ONE ×2 (10:56→14:44)
--- NOTE | 2021-07-24 11:29 | Procedure/Intervention Note ---
Procedures/Interventions Date of ETT Placement: Jul 24, 2021 Time of ETT Placement: 11:15 Intubation Method: orotracheal Tube Size: 7.5 Medications: Etomidate, Propofol, Rocuronium Positive End Tide CO2: Yes Breath Sounds after Intubation: bilateral-equal Intubation Complications: no complications Post Intubation Xray: Yes Called ICU by hospital housekeeper as patient had been intubated but then tube became dislodged. Respirations were assisted with [id number] and nasal airway on my arrival. Minor amount of blood in oropharynx probably from the nasal airway as there was no obvious trauma to the larynx. A size 7.5 endotracheal tube was passed between the vocal cords 23 cm at the teeth and x- ray obtained. Oxygen saturation fell to 91% and then climbed back up to 99%. PADMINI BARBOUR APRN Jul 24, 2021 11:29
--- NOTE | 2021-07-24 11:39 | Diagnostic Imaging Report ---
EXAMINATION: Chest 1 view HISTORY: Intubation. Shortness of breath. COMPARISON: Chest radiograph performed earlier this same date. FINDINGS: There has been interval placement of an endotracheal tube with the tip overlying the trachea approximately 5 cm above the rios. Enteric tube is seen with the tip descending below the diaphragm. The lung volumes are normal. No focal consolidation is seen. No large pleural effusion or pneumothorax is seen. The cardiomediastinal silhouette is normal in size and contour. No acute osseous abnormality is seen. IMPRESSION: 1. Appropriate configuration of the endotracheal tube and enteric tube. Dictated by: Dictated on workstation # [id number]
[2021-07-24] MEDS ORDERED: ETOMIDATE IV SOLN 20 MG/10 ML VIAL IV ONE (11:52)
[2021-07-24] MEDS ORDERED: MIDAZOLAM 5 MG/5 ML (VERSED) VIAL IJ ONE (11:52)
[2021-07-24] MEDS ORDERED: ROCURONIUM 10 MG/ML 5 ML SYRINGE IV ONE (11:52)
[2021-07-24] MEDS ORDERED: proPOfol 200 MG/20 ML (DIPRIVAN) VIAL IV ONE (11:52)
--- NOTE | 2021-07-24 12:12 | Tele-ICU Consult ---
History of Present Illness History of Present Illness Date Seen by Provider: Jul 24, 2021 Time Seen by Provider: 12:08 Date of Admission 07/24/21 History of Present Illness She presented to an outside emergency room with shortness of breath and found to have hypoxia despite being on home oxygen. Apparently she has a history of severe COPD on home oxygen about 3 L nasal cannula and a current active smoker. She also has a history of hypertension and type 2 diabetes mellitus on Metformin. Initially she was found to be hypoxic on 3 L nasal cannula and subsequently placed on 6 L nasal cannula. Letter she moved to [facility]. She is admitted to the intensive care unit for further evaluation and management meanwhile her respiratory status deteriorated hence she is intubated and put on mechanical ventilation. I have video visited and monitored in the intubation. After the intubation she became hypotensive requiring further fluid bolus as well as a Levophed. Awaiting for CVC placement. Unable to obtain any history from the patient however I have discussed with the hospitalist Dr. Humphrey about her condition earlier before she came to the ICU. Reviewed with the RN. Allergies and Home Medications Allergies Coded Allergies: No Known Drug Allergies (Unverified , 06/12/15) Home Medications Albuterol Sulfate 1 Puff Puff, 2 PUFF IH Q4H PRN for SHORTNESS OF BREATH, (Reported) Alendronate Sodium 70 Mg Tablet, 70 MG PO THUR, (Reported) Amlodipine Besylate 5 Mg Tablet, 5 MG PO DAILY, (Reported) Atorvastatin Calcium 20 Mg Tablet, 20 MG PO HS, (Reported) Calcium Carbonate/Vitamin D3 1 Each Tablet, 1 EACH PO DAILY, (Reported) Cholecalciferol (Vitamin D3) 125 Mcg Tablet, 125 MCG PO DAILY, (Reported) Fluticasone/Salmeterol 1 Each Aer.pow.ba, 0 EACH IH RTBID Prescribed by: KANG HUMPHREY on 12/11/20 1047 Ipratropium/Albuterol Sulfate 3 Ml Ampul.neb, 3 ML IH Q4H PRN for SHORTNESS OF BREATH, (Reported) Letrozole 2.5 Mg Tablet, 2.5 MG PO DAILY, (Reported) Loratadine 10 Mg Tablet, 10 MG PO DAILY Prescribed by: KANG HUMPHREY on 12/11/20 1047 Lorazepam 0.5 Mg Tablet, 0.5 MG PO BID PRN for ANXIETY Prescribed by: KANG HUMPHREY on 12/11/20 1047 Metformin HCl 1,000 Mg Tablet, 1,000 MG PO BID WITH MEALS, (Reported) Naproxen 375 Mg Tablet, 375 MG PO BID PRN for PAIN-MILD (1-4), (Reported) Pantoprazole Sodium 40 Mg Tablet.dr, 40 MG PO BID, (Reported) Prednisone 10 Mg Tab.ds.pk, 10 MG PO DAILY Take 6 tabs(60mg)daily,decrease by 1 tab(10MG)daily. Prescribed by: KANG HUMPHREY on 12/11/20 1047 Sertraline HCl 100 Mg Tablet, 100 MG PO HS, (Reported) TAKES 100MG +50MG TO EQUAL 150MG Sertraline HCl 50 Mg Tablet, 50 MG PO HS, (Reported) TAKES 100MG +50MG TO EQUAL 150MG Sitagliptin Phosphate 50 Mg Tablet, 50 MG PO DAILY, (Reported) Past Medical/Social/Family Hx Patient Social History Marrital Status: single Employed/Student: unemployed Tobacco Use?: Yes Tobacco type used: Cigarettes Smoking Status: Current Everyday Smoker Use of E-Cig and/or Vaping dev: No Substance use?: No Alcohol Use?: Yes Alcohol type: Wine Alcohol Frequency: Once in a while Pt stated abuse/neglect: No Immunizations Up To Date Influenza Vaccine Up-to-Date: No; Not Current First/Initial COVID19 Vaccinat: N/A Current Status status: No Communicates: Verbally Primary Language: Chinese Preferred Spoken Language: Chinese Is interpretation needed?: No Past Medical History COPD O2 dependent Tremor Smoker Breast cancer Review of Systems Constitutional: see HPI Other ROS PER RN Focused Exam Lactate Level 07/24/21 04:30: Lactic Acid Level 3.06*H 07/24/21 07:10: Lactic Acid Level 4.04*H 07/24/21 09:03: Lactic Acid Level 5.95*H Height, Weight, BMI Height: 5'3.00" Weight: 139lbs. 0.0oz. 63.339450mc; 23.48 BMI Method:Stated Lactic Acid Level Laboratory Tests Test 07/24/21 09:03 Lactic Acid Level 5.95 MMOL/L (0.50-2.00) *H Exam Exam Patient acknowledged, consented, and participated in this virtual visit which was conducted using real time audio/video Vital Signs Date Time Temp Pulse Resp B/P (MAP) Pulse Ox O2 Delivery O2 Flow Rate FiO2 07/24/21 10:29 NIV Bilevel 35.00 07/24/21 10:24 101 129/73 07/24/21 10:21 97 22 97 35.00 07/24/21 08:00 36.3 104 22 136/58 (84) 97 07/24/21 07:55 NIV Bilevel 50 07/24/21 07:22 NIV Bilevel 50.00 07/24/21 07:14 101 25 96 50.00 07/24/21 07:05 High Flow N/C 6.00 07/24/21 07:00 101 07/24/21 06:48 36.4 104 89 4 07/24/21 06:00 94 High Flow N/C 4.00 07/24/21 05:55 36.4 104 32 156/74 (101) 94 High Flow N/C 4.00 07/24/21 05:43 90 23 127/55 91 Nasal Cannula 4.00 07/24/21 02:35 92 Nasal Cannula 6.00 07/24/21 02:32 Nasal Cannula 3.00 07/24/21 02:32 36.8 107 27 158/74 (102) 87 Nasal Cannula 4.00 I & O 07/24/21 07:00 Intake Total 1120 ml Balance 1120 ml Height & Weight Height: 5'3.00" Weight: 139lbs. 0.0oz. 63.245688az; 23.48 BMI Method:Stated General Appearance: Anxious, Chronically ill, Moderate Distress, Thin HEENT: PERRL/EOMI, Normal ENT Inspection, Pharynx Normal, Moist Mucous Membranes Neck: Full Range of Motion, Normal Inspection, Non Tender Respiratory: Chest Non Tender, No Respiratory Distress, Accessory Muscle Use, Crackles, Decreased Breath Sounds, Wheezing, Other (on biPAP) Cardiovascular: No Edema, No Gallop, No JVD, No Murmur, Normal Peripheral Pulses, Tachycardia Capillary Refill: Less Than 3 Seconds Extremity: Normal Capillary Refill, Normal Inspection, Normal Range of Motion, Non Tender, No Calf Tenderness, No Pedal Edema Neurologic/Psychiatric: Alert, Oriented x3, No Motor/Sensory Deficits, Normal Mood/Affect Skin: Normal Color, Warm/Dry Lymphatic: No Adenopathy Other comments PE PER RN Results Lab Laboratory Tests 07/24/21 02:38 Radiology NAME: AN [facility]AZUETA [facility] REC#: [id number] PT STATUS: ADM IN : 1960 PHYSICIAN: KANG HUMPHREY DO ADMIT DATE: 07/24/21/ICU Signed Date of Exam:07/24/21 CHEST 1 VIEW, AP/PA ONLY EXAMINATION: Chest 1 view HISTORY: Intubation. Shortness of breath. COMPARISON: Chest radiograph performed earlier this same date. FINDINGS: There has been interval placement of an endotracheal tube with the tip overlying the trachea approximately 5 cm above the rios. Enteric tube is seen with the tip descending below the diaphragm. The lung volumes are normal. No focal consolidation is seen. No large pleural effusion or pneumothorax is seen. The cardiomediastinal silhouette is normal in size and contour. No acute osseous abnormality is seen. IMPRESSION: 1. Appropriate configuration of the endotracheal tube and enteric tube. Dictated by: Dictated on workstation # [id number] Dict: 07/24/21 1136 Trans: 07/24/21 1147 [facility] [id number] Interpreted by: JESSE VANCE DO Electronically signed by: JESSE VANCE DO 07/24/21 1147 Assessment/Plan Assessment/Plan 1. Acute and chronic hypercarbic and hypoxic respiratory failure requiring mechanical ventilation. 2. COPD with exacerbation. 3. Tobacco abuse disorder. 4. Hypotension secondary to positive pressure ventilation as well as volume deficiency 5. Lactic acidosis partly probably contributing by the Metformin in addition to volume deficiency. Recommendations 1. Continue mechanical ventilatory support and repeat blood gases. 2. IV fluid boluses 3. We will start on a Levophed to keep map over 65 4. Central line placement by the surgery. 5. DVT prophylaxis and ulcer prophylaxis 6. We will give IV Solu-Medrol and DuoNeb nebulizer treatment. 7. She will be counseled to quit smoking once she gets better. 8. Well overall prognosis is guarded. 9. We will give empirically IV antibiotics. 10. Video visit made and discussed with the patient's RN. Critical Care: Ventilator Management Time spent with patient (mins): 40 JOSE MARMOLEJO MD Jul 24, 2021 12:12
[2021-07-24] MEDS: NOREPINEPHRINE 8 MG/250 ML 250 ML IV SCH ×2 (12:24→20:19)
[2021-07-24] MEDS: fentaNYL DRIP PRE-MIX 250 ML IV SCH ×3 (13:13→20:20)
[2021-07-24] MEDS: MIDAZOLAM DRIP PRE-MIX 100 ML IV SCH ×2 (13:45→20:21)
[2021-07-24] MEDS: PROPOFOL DRIP (ICU) 100 ML IV SCH ×2 (14:45→18:38)
--- NOTE | 2021-07-24 15:21 | Progress Note-Post Operative ---
Post-Operative Progess Note Surgeon (s)/Mine Surveyor (s) Surgeon VIJAY BENAVIDES DO Mine Surveyor: none Pre-Operative Diagnosis Hypotension, Venous Insufficiency, Resp Failure Post-Operative Diagnosis same Procedure & Operative Findings Date of Procedure 07/24/21 Procedure Performed/Findings 1) Insertion of Triple Lumen Catheter 2) Arterial line placement with US guidance The patient was in their bed in the ICU, was prepped and draped in the sterile fashion. A surgical pause was performed. Ultrasound was used to locate the internal jugular vein. Once located anesthetic was infiltrated above it. Using an 18 gauge finder needle and watching with the US; the left internal jugular vein was accessed. Dark nonpulsatile blood was withdrawn. The wire was inserted. US assured proper placement. The needle was removed. A [#11] blade scalpel was used to make a stab incision along the guidewire. Dilator sheath was then advanced over the wire using Seldinger technique and the dilator was removed. The Groshong catheter was inserted over the guide wire using the Seldinger technique. The Groshong wire was removed. The catheter was then accessed in all three ports without difficulty. Good flash of blood was seen and it was then flushed with saline. The catheter was sutured in place with 3-0 silk on a annette needle. The areas were then washed and dried. Sterile dressing was placed over incision. The patient tolerated the procedure well without complication. I then stayed sterile and had the nurse prep and hold her left arm. I also kept the US probe sterile and used this to find the left radial artery. Watching with the US I advanced the 20gauge art line needle into the artery and got a good flash of blood (this did take 3 attempts). I was able to advance the guidewire easily and saw it in the artery with US. Able to then push the catheter over the guidewire and into the artery. Removed the needle and had pumping blood coming out of catheter. Hooked up the arterial line and got a good wave form. Cleaned the wrist and place dressing. Anesthesia Type none, pt sedated and intubated Estimated Blood Loss Estimated blood loss (mL): less than 10ml Specimens/Packing Specimens Removed none VIJAY BENAVIDES DO Jul 24, 2021 15:21
--- NOTE | 2021-07-24 15:24 | Consultation - Surgery ---
History of Present Illness History of Present Illness Patient Consulted On(eduardo/time) 07/24/21 15:21 Time Seen by Provider: 14:34 History of Present Illness Surgery asked to consult regarding central line and arterial line. HPI per ED: Here by [facility] with report of hypoxia and difficulty breathing. Initial O2 sat in the field was around 60% on her normal 3 L. They gave DuoNeb and stated her O2 sat went to 94%. On arrival she had O2 sat in the low 80s on typical 3 L and improved to 90% on 6 L. Patient denies fever or chills but states that she has not been feeling well for about 3 days. Adamantly denies Covid but admits that she is not vaccinated. Apparently her grandchildren have been sick but they were tested yesterday and found to not have Covid. Admits to being a smoker but states that she is only able to smoke about 5 cigarettes a day. Does complain of sore throat. Denies nausea, vomiting or diarrhea. Normally she is on 2 L when resting and 3 L when walking but has required 3 to 4 L at home over the last few days. She has done several breathing treatments at home and that has not helped. Has history of COPD and COPD exacerbations. Follows with [facility]. Timing/Duration: 3-4 Days, Getting Worse Severity: Moderate Associated Systoms: Cough; No Fever/Chills; Shortness of Air Pt was intubated and sedated, all information obtained from chart. Allergies and Home Medications Allergies Coded Allergies: No Known Drug Allergies (Unverified , 06/12/15) Patient Home Medication List Home Medication List Reviewed: Yes Albuterol Sulfate (Proair Hfa) 1 Puff Puff, 2 PUFF IH Q4H PRN for SHORTNESS OF BREATH, (Reported) Entered as Reported by: EVARISTO LAROSE on 12/10/20 0954 Alendronate Sodium (Alendronate Sodium) 70 Mg Tablet, 70 MG PO THUR, (Reported) Entered as Reported by: EVARISTO LAROSE on 12/10/20 0954 Amlodipine Besylate (Amlodipine Besylate) 5 Mg Tablet, 5 MG PO DAILY, (Reported) Entered as Reported by: EVARISTO LAROSE on 12/10/20 0954 Atorvastatin Calcium (Atorvastatin Calcium) 20 Mg Tablet, 20 MG PO HS, (Reported) Entered as Reported by: EVARISTO LAROSE on 12/10/20953 Calcium Carbonate/Vitamin D3 (Calcium 600 + Vit D3 Tablet) 1 Each Tablet, 1 EACH PO DAILY, (Reported) Entered as Reported by: EVARISTO LAROSE on 12/10/20953 Cholecalciferol (Vitamin D3) (Vitamin D3) 125 Mcg Tablet, 125 MCG PO DAILY, (Reported) Entered as Reported by: EVARISTO LAROSE on 12/10/20953 Fluticasone/Salmeterol (Fluticasone-Salmeterol 113-14) 1 Each Aer.pow.ba, 0 EACH IH RTBID Prescribed by: KANG HUMPHREY on 12/11/201046 Ipratropium/Albuterol Sulfate (Iprat-Albut 0.5-3(2.5) mg/3 ml) 3 Ml Ampul.neb, 3 ML IH Q4H PRN for SHORTNESS OF BREATH, (Reported) Entered as Reported by: EVARISTO LAROSE on 12/10/20953 Letrozole (Letrozole) 2.5 Mg Tablet, 2.5 MG PO DAILY, (Reported) Entered as Reported by: EVARISTO LAROSE on 12/10/20953 Loratadine (Loratadine) 10 Mg Tablet, 10 MG PO DAILY Prescribed by: KANG HUMPHREY on 12/11/201046 Lorazepam (Ativan) 0.5 Mg Tablet, 0.5 MG PO BID PRN for ANXIETY Prescribed by: KANG HUMPHREY on 12/11/20 104 Metformin HCl (Metformin HCl) 1,000 Mg Tablet, 1,000 MG PO BID WITH MEALS, (Reported) Entered as Reported by: EVARISTO LAROSE on 12/10/20953 Naproxen (Naproxen) 375 Mg Tablet, 375 MG PO BID PRN for PAIN-MILD (1-4), (Reported) Entered as Reported by: EVARISTO LAROSE on 12/10/20953 Pantoprazole Sodium (Pantoprazole Sodium) 40 Mg Tablet.dr, 40 MG PO BID, (Reported) Entered as Reported by: EVARISTO LAROSE on 12/10/20953 Prednisone (Prednisone) 10 Mg Tab.ds.pk, 10 MG PO DAILY Prescribed by: KANG HUMPHREY on 12/11/20 1047 Sertraline HCl (Sertraline HCl) 100 Mg Tablet, 100 MG PO HS, (Reported) Entered as Reported by: ABHI ANSARI on 08/20/15 1723 Sertraline HCl (Sertraline HCl) 50 Mg Tablet, 50 MG PO HS, (Reported) Entered as Reported by: EVARISTO LAROSE on 12/10/20 0954 Sitagliptin Phosphate (Januvia) 50 Mg Tablet, 50 MG PO DAILY, (Reported) Entered as Reported by: EVARISTO LAROSE on 12/10/20 0954 Past Jrkpvst-Mtoqjj-Vbroim Hx Patient Social History Smoking Status: Current Everyday Smoker Type Used: Cigarettes Recent Hopitalizations: No Alcohol Use?: Yes Immunizations Up To Date PED Vaccines UTD: Yes Surgeries History of Surgeries: Yes (HERNIA, BI LAT MASECTOMY) Surgeries: Abdominal, Breast, Tubal Ligation Respiratory History of Respiratory Disorde: Yes (Uses oxygen at 2 L continuously) Respiratory Disorders: COPD Cardiovascular History of Cardiac Disorders: Yes Cardiac Disorders: High Cholesterol, Hypertension, Syncope Neurological History of Neurological Disord: Yes (VASOVAGAL SYNCOPE VS SEIZURE) Neurological Disorders: Headaches /Migraines Reproductive System QUALITY CONTROL LEAD History: Tubal Ligation, Menopausal Genitourinary History of Genitourinary Disor: No Gastrointestinal History of Gastrointestinal Di: Yes (ESOPHAGEAL SPASMS) Musculoskeletal History of Musculoskeletal Dis: Yes Musculoskeletal Disorders: Arthritis Endocrine History of Endocrine Disorders: Yes Endocrine Disorders: Diabetes, Non-Insulin dep HEENT History of HEENT Disorders: No Cancer History of Cancer: Yes Cancer: Breast Psychosocial History of Psychiatric Problem: Yes Behavioral Health Disorders: Anxiety, Depression Integumentary History of Skin or Integumenta: Yes Skin/Integumentary Disorders: Psoriasis Blood Transfusions History of Blood Disorders: No Family Medical History Significant Family History: No Pertinent Family Hx Review of Systems-General ROS-Unable to Obtain: pt sedated and intubated Physical Exam-General Problems Physical Exam Vital Signs Vital Signs - First Documented 07/24/21 06:48 FiO2 4 Capillary Refill : Less Than 3 Seconds General Appearance: no apparent distress, thin Eyes: Bilateral Eye PERRL, Bilateral Eye EOMI HEENT: No scleral icterus (R), No scleral icterus (L) Neck: supple Respiratory: decreased breath sounds, crackles, wheezing, other (pt ventilated) Cardiovascular: regular rate, rhythm, no murmur Gastrointestinal: soft, no organomegaly Extremities: no pedal edema Neurologic/Psychiatric: other (intubated and sedated) Data Review Labs Laboratory Tests 07/24/21 02:38: White Blood Count 12.8H, Red Blood Count 4.56, Hemoglobin 11.8, Hematocrit 37, Mean Corpuscular Volume 82, Mean Corpuscular Hemoglobin 26, Mean Corpuscular Hemoglobin Concent 32, Red Cell Distribution Width 15.7H, Platelet Count 273, Mean Platelet Volume 11.4, Immature Granulocyte % (Auto) 0, Neutrophils (%) (Auto) 75, Lymphocytes (%) (Auto) 10L, Monocytes (%) (Auto) 7, Eosinophils (%) (Auto) 7, Basophils (%) (Auto) 0, Neutrophils # (Auto) 9.6H, Lymphocytes # (Auto) 1.3, Monocytes # (Auto) 0.9, Eosinophils # (Auto) 0.9H, Basophils # (Auto) 0.1, Immature Granulocyte # (Auto) 0.1, Prothrombin Time 12.5, INR Comment 0.9, Activated Partial Thromboplast Time 28, D-Dimer < 0.27, Sodium Level 139, Potassium Level 3.6, Chloride Level 98, Carbon Dioxide Level 26, Anion Gap 15H, Blood Urea Nitrogen 9, Creatinine 0.74, Estimat Glomerular Filtration Rate 80, BUN/Creatinine Ratio 12, Glucose Level 186H, Lactic Acid Level 2.93*H, Calcium Level 9.7, Corrected Calcium 9.4, Total Bilirubin 0.3, Aspartate Amino Transf (AST/SGOT) 18, Alanine Aminotransferase (ALT/SGPT) 24, Alkaline Phosphatase 71, C-Reactive Protein High Sensitivity 0.55H, Total Protein 7.3, Albumin 4.4, Procalcitonin 0.04 07/24/21 02:42: Influenza Type A (RT-PCR) Not Detected, Influenza Type B (RT-PCR) Not Detected, SARS-CoV-2 RNA (RT-PCR) Not Detected 07/24/21 02:58: Urine Color YELLOW, Urine Clarity CLEAR, Urine pH 5.5, Urine Specific [place] 1.025H, Urine Protein NEGATIVE, Urine Glucose (UA) NEGATIVE, Urine Ketones NEGATIVE, Urine Nitrite NEGATIVE, Urine Bilirubin NEGATIVE, Urine Urobilinogen 0.2, Urine Leukocyte Esterase NEGATIVE, Urine RBC (Auto) NEGATIVE, Urine RBC NONE, Urine WBC 0-2, Urine Squamous Epithelial Cells 0-2, Urine Crystals NONE, Urine Bacteria TRACE, Urine Casts PRESENT, Urine Hyaline Casts RARE, Urine Mucus NEGATIVE, Urine Culture Indicated CULTURE PENDING 07/24/21 04:30: Lactic Acid Level 3.06*H 07/24/21 07:00: Blood Gas Puncture Site RIGHT RADIAL, Blood Gas Patient Temperature 36.4, Arterial Blood pH 7.37, Arterial Blood Partial Pressure CO2 50H, Arterial Blood Partial Pressure O2 58L, Arterial Blood HCO3 28H, Arterial Blood Total CO2 29.9, Arterial Blood Oxygen Saturation 90L, Arterial Blood Base Excess 3.4H, Wes Test POSITIVE, Blood Gas Ventilator Setting NO, Blood Gas Inspired Oxygen 4 L 07/24/21 07:10: Lactic Acid Level 4.04*H 07/24/21 09:03: Lactic Acid Level 5.95*H 07/24/21 11:56: Glucometer 214H Assessment/Plan Assessment/Plan Assessment/Plan Hypotension Venous Insufficiency Respiratory failure Pt needed central line for pressor support and arterial line for monitoring. Placed with difficulty. VIJAY BENAVIDES DO Jul 24, 2021 15:24
[2021-07-24 16:43] LABS: ABG BASE EXCESS -0.9 MMOL/L (-2.5-2.5); ABG OXYGEN SATURATION 100 % (94-100); ABG PCO2 46 MMHG (35-45); ABG PO2 384 MMHG (79-93); ABG TCO2 25.7 MMOL/L (21.0-31.0)
[2021-07-24 16:44] LABS: ABG PH 7.34 (7.37-7.43); ALLENS TEST ART LINE
[2021-07-24 16:45] LABS: INSPIRED O2 90%; PATIENT TEMP 36.6; VENTILATOR YES
[2021-07-25] VITALS (30 sets, daily range): BP systolic 96–140; BP diastolic 47–67
[2021-07-25] MEDS: IBUPROFEN TABLET 200 MG TAB PO SCH ×3 (00:06→12:14)
[2021-07-25] MEDS: inSUlin ASPART (NovoLOG) 1 UNIT/0.01 ML (CHARGE PER UNIT) SC SCH ×5 (00:07→23:19)
[2021-07-25] MEDS: methylPREDNISolone 40 MG/ML (Solu-MEDROL) VIAL IV SCH ×5 (00:07→23:05)
[2021-07-25] MEDS: RT-ALBUTEROL/IPRATROPIUM 3 ML (DUONEB) VIAL INH SCH ×6 (02:08→21:37)
[2021-07-25] MEDS: fentaNYL DRIP PRE-MIX 250 ML IV SCH ×4 (02:16→20:10)
[2021-07-25] MEDS: NS IV 1000 ML 1,000 ML IV SCH ×4 (04:04→22:38)
[2021-07-25 04:08] LABS: BASOPHILS % (AUTO) 0 % (0-10); EOSINOPHILS % (AUTO) 0 % (0-10); HEMATOCRIT 25 % (35-52); LYMPHOCYTES # (AUTO) 0.8 10^3/uL (1.0-4.0); LYMPHOCYTES % (AUTO) 4 % (12-44); MEAN CORPUSCULAR HEMOGLOBIN 26 pg (25-34); MEAN CORPUSCULAR HGB CONC 32 g/dL (32-36); MEAN CORPUSCULAR VOLUME 81 fL (80-99); MEAN PLATELET VOLUME 11.6 fL (9.0-12.2); MONOCYTES % (AUTO) 5 % (0-12); NEUTROPHILS % (AUTO) 91 % (42-75); PLATELET COUNT 250 10^3/uL (130-400)
[2021-07-25 04:13] LABS: ABG BASE EXCESS 1.5 MMOL/L (-2.5-2.5); ABG OXYGEN SATURATION 99 % (94-100); ABG PCO2 41 MMHG (35-45); ABG PH 7.41 (7.37-7.43); ABG PO2 176 MMHG (79-93); ABG TCO2 26.9 MMOL/L (21.0-31.0); ALLENS TEST YES-POS; INSPIRED O2 45%; PATIENT TEMP 36.8; VENTILATOR YES
[2021-07-25 04:35] LABS: ALBUMIN 3.1 GM/DL (3.2-4.5); POTASSIUM 3.1 MMOL/L (3.6-5.0)
[2021-07-25 04:37] LABS: CALCIUM 7.4 MG/DL (8.5-10.1)
[2021-07-25 04:38] LABS: TOTAL PROTEIN 5.3 GM/DL (6.4-8.2)
[2021-07-25 04:39] LABS: BILIRUBIN,TOTAL 0.2 MG/DL (0.1-1.0)
[2021-07-25 04:41] LABS: CREATININE SERUM 0.57 MG/DL (0.60-1.30)
[2021-07-25 04:44] LABS: MAGNESIUM 1.3 MG/DL (1.6-2.4)
[2021-07-25] MEDS: POTASSIUM CL 10MEQ/50ML IVPB 50 ML IV SCH ×4 (04:53→06:46)
[2021-07-25] MEDS: MAGNESIUM 1 GM/100 ML IVPB 100 ML IV SCH ×4 (04:53→06:58)
[2021-07-25] MEDS: KCL 20 MEQ TAB (K-DUR) PO SCH (04:54)
[2021-07-25 05:04] LABS: BAND NEUTROPHILS 7 %; LYMPHOCYTES % (MANUAL) 3 %; MICROCYTOSIS SLIGHT; MONOCYTES % (MANUAL) 3 %; NEUTROPHILS % (MANUAL) 87 %
--- NOTE | 2021-07-25 07:24 | Progress Note - Hospitalist ---
Subjective HPI/CC On Admission Date Seen by Provider: Jul 25, 2021 Time Seen by Provider: 12:22 CC: Respiratory failure HPI: This is a 60yoWF w/h/o COPD on home O2 13/02, current smoker, DM on Metformin, HTN, anxiety and depression who presents to the [facility] from ER with dyspnea and was found to have acute on chronic respiratory failure and hypercapnia and hypoxemia on ABG meeting criteria for biPAP but moved to ICU when respiratory failure noted and more elevated lactic acidosis likely due to Metformin and hypoxemia and work of breathing. Patient denies pain. Lives alone in trailer beside her daughter. Updated EICU on need to move to ICU. Subjective/Events-last exam Patient maintained intubated Hemoglobin drop noted Aggressive IV fluids given after intubation Checked meds and labs Lactic acid now normal Review of Systems General: Fatigue, Malaise Pulmonary: Dyspnea Focused Exam Lactate Level 07/24/21 07:10: Lactic Acid Level 4.04*H 07/24/21 09:03: Lactic Acid Level 5.95*H 07/24/21 16:55: Lactic Acid Level 1.75 Objective Exam Vital Signs Vital Signs Date Time Temp Pulse Resp B/P (MAP) Pulse Ox O2 Delivery O2 Flow Rate FiO2 07/26/21 05:06 65 20 95 50 07/26/21 05:05 37.1 07/26/21 03:46 Mechanical Ventilator 07/25/21 21:55 135/58 07/25/21 19:30 50.00 Capillary Refill : Less Than 3 Seconds General Appearance: No Apparent Distress, WD/WN, Chronically ill, Other (Sedated and intubated) Respiratory: Lungs Clear, Normal Breath Sounds Results/Procedures Lab Laboratory Tests 07/26/21 02:45 Patient resulted labs reviewed. Assessment/Plan Assessment and Plan Assess & Plan/Chief Complaint Assessment: Acute on chronic respiratory failure requiring ventilator day #2 AECOPD Lactic acidosis due to Metformin and hypoxemia and respiratory fatigue no evidence of sepsis or bacterial source negative PCT and negative CXR Current smoker Chronic hypoxemia uses O2 2-3 L/min chronically DM on Metformin HTN Osteoporosis GERD Depression Anxiety placing on Precedex Breast cancer hx Frail status Chronic disability Plan: Move to ICU IVF EICU consult Lovenox biPAP Precedex High risk for intubation 07/25/2021: Ventilator management appreciated IV steroids Follow chest x-ray Critical Care Ventilator Management Diagnosis/Problems Diagnosis/Problems (1) Acute and chronic respiratory failure (2) Lactic acid acidosis (3) Smoker (4) HX: breast cancer (5) Hypertension (6) Hyperlipemia (7) Diabetes (8) Adverse effect of metformin (9) Hypercapnia (10) Hypoxemia (11) Oxygen dependent (12) COPD with acute exacerbation Status: Acute (13) Hypoxia Status: Acute (14) Anxiety Status: Acute KANG HUMPHREY DO Jul 25, 2021 07:24
[2021-07-25] MEDS: ENOXAPARIN 40 MG/0.4 ML (LOVENOX) SYR SC SCH (08:04)
[2021-07-25] MEDS: PANTOPRAZOLE 40 MG (PROTONIX) VIAL IV SCH (08:05)
[2021-07-25] MEDS: SENNOSIDES 8.6 MG (SENOKOT) TAB PO SCH ×2 (08:05→20:14)
[2021-07-25] MEDS: LORATADINE (CLARITIN) 10 MG TAB PO SCH (08:05)
[2021-07-25] MEDS: SENNA W/DOCUSATE (SENOKOT S) TABLET PO SCH ×2 (08:05→20:14)
[2021-07-25] MEDS: MONTELUKAST 10 MG (SINGULAIR) TAB PO SCH (08:06)
[2021-07-25] MEDS: DOCUSATE SODIUM 100 MG (COLACE) CAP PO SCH ×2 (08:06→20:13)
[2021-07-25] MEDS: MIDAZOLAM DRIP PRE-MIX 100 ML IV SCH ×2 (09:19→21:55)
--- NOTE | 2021-07-25 10:40 | Tele-ICU Progress Note ---
Subjective Date Seen by a Provider: Jul 25, 2021 Time Seen by a Provider: 08:15 Subjective/Events-last exam This virtual visit was conducted using real time audio/video. Thank you for asking us to see this patient for respiratory insufficiency due to AECOPD. Intubated 07/24/2021. Recent events: None overnight. PE: VSS. O2 sat 96% on 45%/+5. HEENT: No obvious masses, adenopathy or JVD. Chest: Coarse. CV: RRR S1 S2 No murmur or added sounds. Abd: Non-tender. Bowel sounds Y. : Unremarkable. [place] Y. CHEMIST BIOLOGICAL/psychiatric: Sedated on vent. Grossly intact. No obvious focal findings. Extremities: No edema. Capillary refill < 3 seconds. Skin: unremarkable. Pale. Results: Elevated WCC 21K, ? steroid induced. Decreased Hb 8, K 3.1. B.41/41/176. CXR: No infilts.. Available chart/ vitals / labs / images reviewed. Video assessment done using teleICU camera, rest of exam as per RN. A/P: Respiratory insufficiency: Continue present management with vent. Cont. Duonebs, medrol, Levo., Singulair, Precedex, Fentanyl Monitor for increasing oxygenation needs. Critical Care: critically ill patient. Cont. PPI, SSI. Replace K. Discussed with DILEEP Avery. Asked RN to reach out to eICU if any questions or concerns later. Time spent with patient/coordination of care with other health professionals (mins):15 Sepsis Event Evaluation Height, Weight, BMI Height: 5'3.00" Weight: 139lbs. 0.0oz. [id number]; 23.48 BMI Method:Stated Focused Exam Lactate Level 07/24/21 07:10: Lactic Acid Level 4.04*H 07/24/21 09:03: Lactic Acid Level 5.95*H 07/24/21 16:55: Lactic Acid Level 1.75 Exam Exam Patient acknowledged, consented, and participated in this virtual visit which was conducted using real time audio/video Vital Signs Date Time Temp Pulse Resp B/P (MAP) Pulse Ox O2 Delivery O2 Flow Rate FiO2 07/25/21 10:22 78 20 98 45 07/25/21 10:00 66 11 117/64 (81) 95 Mechanical Ventilator 45.00 07/25/21 09:19 65 19 103/60 07/25/21 09:00 66 20 103/59 (74) 95 Mechanical Ventilator 45.00 07/25/21 08:00 37.1 07/25/21 08:00 73 19 102/58 (73) 94 Mechanical Ventilator 45.00 07/25/21 08:00 Mechanical Ventilator 45 07/25/21 07:00 68 20 106/60 (75) 95 Mechanical Ventilator 45.00 07/25/21 07:00 73 07/25/21 06:55 71 20 96 45 07/25/21 06:00 72 20 112/63 (79) 96 Mechanical Ventilator 45.00 07/25/21 05:00 73 19 117/64 (81) 96 Mechanical Ventilator 45.00 07/25/21 04:06 96 Mechanical Ventilator 45 07/25/21 04:00 83 15 115/64 (81) 95 Mechanical Ventilator 45.00 07/25/21 03:00 36.8 Mechanical Ventilator 45.00 07/25/21 03:00 79 20 101/65 (77) 95 Mechanical Ventilator 45.00 07/25/21 02:09 73 20 95 45 07/25/21 02:00 74 20 107/61 (76) 95 Mechanical Ventilator 45.00 07/25/21 01:00 74 19 124/67 (86) 96 Mechanical Ventilator 45.00 07/25/21 01:00 80 07/25/21 00:12 94 Mechanical Ventilator 45 07/25/21 00:00 79 20 114/64 (81) 95 Mechanical Ventilator 45.00 07/24/21 23:00 36.9 Mechanical Ventilator 45.00 07/24/21 23:00 75 19 118/66 (83) 96 Mechanical Ventilator 45.00 07/24/21 22:00 74 25 112/60 (77) 96 Mechanical Ventilator 45.00 07/24/21 21:21 76 20 95 45 07/24/21 21:00 73 20 108/59 (75) 94 Mechanical Ventilator 45.00 07/24/21 20:21 69 20 100/49 07/24/21 20:19 69 100/49 07/24/21 20:00 97 Mechanical Ventilator 45 07/24/21 20:00 75 19 110/55 (73) 94 Mechanical Ventilator 45.00 07/24/21 19:00 70 21 101/53 (69) 98 Mechanical Ventilator 45.00 07/24/21 19:00 69 07/24/21 19:00 36.8 Mechanical Ventilator 45.00 07/24/21 18:43 69 20 99 45 07/24/21 18:38 65 130/56 07/24/21 18:00 67 20 108/48 (68) 99 Mechanical Ventilator 90.00 07/24/21 17:00 70 20 126/55 (78) 99 Mechanical Ventilator 90.00 07/24/21 16:00 69 20 133/56 (81) 99 Mechanical Ventilator 90.00 07/24/21 15:46 Mechanical Ventilator 100 07/24/21 15:00 63 16 143/59 (87) 99 Mechanical Ventilator 90.00 07/24/21 14:47 Mechanical Ventilator 90.00 07/24/21 14:45 70 134/56 07/24/21 14:43 69 16 99 90 07/24/21 14:00 70 15 97/45 (62) 98 Mechanical Ventilator 100.00 07/24/21 13:45 68 18 135/62 07/24/21 13:00 64 07/24/21 13:00 64 16 149/64 (92) 99 Mechanical Ventilator 100.00 07/24/21 12:24 70 74/40 07/24/21 12:00 Mechanical Ventilator 100 07/24/21 12:00 78 15 75/42 (53) 98 Mechanical Ventilator 100.00 07/24/21 11:30 113 16 98 100 07/24/21 11:06 120 163/77 07/24/21 11:00 120 34 163/77 (105) 98 Mechanical Ventilator 100.00 l I & O 07/25/21 07:00 Intake Total 5905 ml Output Total 650 ml Balance 5255 ml Height & Weight Height: 5'3.00" Weight: 139lbs. 0.0oz. [id number]; 23.48 BMI Method:Stated General Appearance: Anxious, Chronically ill, Moderate Distress, Thin HEENT: PERRL/EOMI, Normal ENT Inspection, Pharynx Normal, Moist Mucous Membranes Neck: Full Range of Motion, Normal Inspection, Non Tender Respiratory: Chest Non Tender, No Respiratory Distress, Accessory Muscle Use, Crackles, Decreased Breath Sounds, Wheezing, Other (on biPAP) Cardiovascular: No Edema, No Gallop, No JVD, No Murmur, Normal Peripheral Pulses, Tachycardia Capillary Refill: Less Than 3 Seconds Peripheral Pulses: 1+ Dorsalis Pedis (R), 1+ Left Dors-Pedis (L) (See free text) Gastrointestinal: soft, no organomegaly Extremity: Normal Capillary Refill, Normal Inspection, Normal Range of Motion, Non Tender, No Calf Tenderness, No Pedal Edema Neurologic/Psychiatric: Alert, Oriented x3, No Motor/Sensory Deficits, Normal Mood/Affect Skin: Normal Color, Warm/Dry Lymphatic: No Adenopathy Results Lab Laboratory Tests 07/24/21 02:38 07/25/21 04:00 Assessment/Plan Assessment/Plan See free text. Critical Care: Ventilator Management FRITZ CLOUD MD Jul 25, 2021 10:40
[2021-07-25] MEDS: NOREPINEPHRINE 8 MG/250 ML 250 ML IV SCH (20:09)
[2021-07-26] VITALS (30 sets, daily range): BP systolic 74–160; BP diastolic 44–73
[2021-07-26] MEDS: fentaNYL DRIP PRE-MIX 250 ML IV SCH ×4 (02:28→20:56)
[2021-07-26] MEDS: RT-ALBUTEROL/IPRATROPIUM 3 ML (DUONEB) VIAL INH SCH ×6 (02:34→23:13)
[2021-07-26 03:08] LABS: BASOPHILS % (AUTO) 0 % (0-10); EOSINOPHILS % (AUTO) 0 % (0-10); HEMATOCRIT 25 % (35-52); HEMOGLOBIN 7.7 g/dL (11.5-16.0); LYMPHOCYTES # (AUTO) 1.1 10^3/uL (1.0-4.0); LYMPHOCYTES % (AUTO) 4 % (12-44); MEAN CORPUSCULAR HEMOGLOBIN 26 pg (25-34); MEAN CORPUSCULAR HGB CONC 31 g/dL (32-36); MEAN CORPUSCULAR VOLUME 83 fL (80-99); MEAN PLATELET VOLUME 11.5 fL (9.0-12.2); MONOCYTES % (AUTO) 4 % (0-12); NEUTROPHILS # (AUTO) 22.7 10^3/uL (1.8-7.8); NEUTROPHILS % (AUTO) 90 % (42-75); PLATELET COUNT 236 10^3/uL (130-400); WHITE BLOOD COUNT 25.4 10^3/uL (4.3-11.0)
[2021-07-26 03:25] LABS: ALBUMIN 3.1 GM/DL (3.2-4.5); POTASSIUM 3.8 MMOL/L (3.6-5.0)
[2021-07-26 03:26] LABS: CALCIUM 7.2 MG/DL (8.5-10.1)
[2021-07-26 03:27] LABS: POTASSIUM 3.8 MMOL/L (3.6-5.0)
[2021-07-26] MEDS: POTASSIUM CL 10MEQ/50ML IVPB 50 ML IV SCH (03:27)
[2021-07-26 03:28] LABS: TOTAL PROTEIN 5.4 GM/DL (6.4-8.2)
[2021-07-26 03:29] LABS: BILIRUBIN,TOTAL 0.2 MG/DL (0.1-1.0); CALCIUM 7.1 MG/DL (8.5-10.1)
[2021-07-26 03:31] LABS: CREATININE SERUM 0.56 MG/DL (0.60-1.30)
[2021-07-26 03:33] LABS: CREATININE SERUM 0.58 MG/DL (0.60-1.30)
[2021-07-26 03:35] LABS: MAGNESIUM 2.1 MG/DL (1.6-2.4)
[2021-07-26] MEDS: MAGNESIUM 1 GM/100 ML IVPB 100 ML IV SCH (03:37)
[2021-07-26] MEDS: KCL 20 MEQ TAB (K-DUR) PO SCH (03:38)
[2021-07-26] MEDS: PROPOFOL DRIP (ICU) 100 ML IV SCH ×2 (05:50→20:01)
[2021-07-26] MEDS: methylPREDNISolone 40 MG/ML (Solu-MEDROL) VIAL IV SCH ×4 (05:58→23:41)
[2021-07-26] MEDS: inSUlin ASPART (NovoLOG) 1 UNIT/0.01 ML (CHARGE PER UNIT) SC SCH ×4 (05:58→23:41)
[2021-07-26] MEDS: NS IV 1000 ML 1,000 ML IV SCH ×3 (05:58→22:38)
[2021-07-26] MEDS: DOCUSATE SODIUM 100 MG (COLACE) CAP PO SCH ×2 (09:06→22:11)
[2021-07-26] MEDS: PANTOPRAZOLE 40 MG (PROTONIX) VIAL IV SCH (09:06)
[2021-07-26] MEDS: SENNA W/DOCUSATE (SENOKOT S) TABLET PO SCH ×2 (09:06→22:11)
[2021-07-26] MEDS: ENOXAPARIN 40 MG/0.4 ML (LOVENOX) SYR SC SCH (09:06)
[2021-07-26] MEDS: LORATADINE (CLARITIN) 10 MG TAB PO SCH (09:07)
[2021-07-26] MEDS: MONTELUKAST 10 MG (SINGULAIR) TAB PO SCH (09:07)
[2021-07-26] MEDS: SENNOSIDES 8.6 MG (SENOKOT) TAB PO SCH ×2 (09:07→22:12)
--- NOTE | 2021-07-26 10:02 | Progress Note ---
Subjective Subjective/Events-last exam Intubated, opens eyes and moves around when spoken to, but relaxed when reassured. Focused Exam Lactate Level 07/24/21 07:10: Lactic Acid Level 4.04*H 07/24/21 09:03: Lactic Acid Level 5.95*H 07/24/21 16:55: Lactic Acid Level 1.75 Objective Exam Last Set of Vital Signs Vital Signs Date Time Temp Pulse Resp B/P (MAP) Pulse Ox O2 Delivery O2 Flow Rate FiO2 07/26/21 09:41 70 20 93 50 07/26/21 08:00 36.9 07/26/21 06:00 128/53 (78) Mechanical Ventilator 50.00 Capillary Refill : Less Than 3 Seconds I&O Intake and Output 07/25/21 23:59 Intake Total 3350 ml Output Total 1025 ml Balance 2325 ml Intake Oral 0 ml IV Total 3350 ml Output Urine Total 1025 ml General: Alert, Other (intubated) Lungs: Other (ronchi) Heart: Regular Rate, No Murmurs Extremities: No Edema Results/Procedures Lab Laboratory Tests 07/25/21 11:23: Glucometer 148H 07/25/21 17:19: Glucometer 182H 07/25/21 23:12: Glucometer 171H 07/26/21 02:45: White Blood Count 25.4H, Red Blood Count 2.96L, Hemoglobin 7.7L, Hematocrit 25L, Mean Corpuscular Volume 83, Mean Corpuscular Hemoglobin 26, Mean Corpuscular Hemoglobin Concent 31L, Red Cell Distribution Width 17.2H, Platelet Count 236, Mean Platelet Volume 11.5, Immature Granulocyte % (Auto) 2, Neutrophils (%) (Auto) 90H, Lymphocytes (%) (Auto) 4L, Monocytes (%) (Auto) 4, Eosinophils (%) (Auto) 0, Basophils (%) (Auto) 0, Neutrophils # (Auto) 22.7H, Lymphocytes # (Au to) 1.1, Monocytes # (Auto) 1.0, Eosinophils # (Auto) 0.0, Basophils # (Auto) 0.0, Immature Granulocyte # (Auto) 0.6H, Sodium Level 140, Potassium Level 3.8, Chloride Level 109H, Carbon Dioxide Level 24, Anion Gap 7, Blood Urea Nitrogen 16, Creatinine 0.58L, Estimat Glomerular Filtration Rate 106, BUN/Creatinine Ratio 28, Glucose Level 173H, Calcium Level 7.1L, Corrected Calcium 7.9L, Magnesium Level 2.1, Total Bilirubin 0.2, Aspartate Amino Transf (AST/SGOT) 18, Alanine Aminotransferase (ALT/SGPT) 19, Alkaline Phosphatase 43, Total Protein 5.4L, Albumin 3.1L, Triglycerides Level 254H 07/26/21 05:49: Glucometer 160H Microbiology 07/24/21 Gram Stain - Final, Resulted 07/24/21 Sputum Culture - Preliminary, Resulted Strep Species, Alpha Hemolytic Usual upper respiratory porfirio 07/24/21 Blood Culture - Preliminary, Resulted No growth 07/24/21 Urine Culture - Final, Complete Gram Pos Mixed Bacterial Porfirio Assessment/Plan Assessment/Plan (1) COPD with acute exacerbation Status: Acute Assessment & Plan: Requiring intubation, currently remains intubated, appreciat e Nat ICU assistance. Solumedrol 80 mg q6. (2) Acute and chronic respiratory failure Status: Acute (3) Diabetes Status: Chronic Assessment & Plan: Sliding scale insulin per ICU protocol. Qualifiers: Qualified Codes: E11.65 - Type 2 diabetes mellitus with hyperglycemia (4) Lactic acid acidosis Status: Resolved Assessment & Plan: Suspect secondary to COPD exacerbation and metformin, resolved. (5) Hypertension Status: Chronic Assessment & Plan: Currently hypotensive, requiring norepinephrine. (6) HX: breast cancer Status: Chronic (7) Hyperlipemia Status: Chronic (8) DVT prophylaxis Status: Acute Assessment & Plan: Enoxaparin LEATHA JUSTIN MD Jul 26, 2021 10:02
--- NOTE | 2021-07-26 11:09 | Tele-ICU Progress Note ---
Subjective Date Seen by a Provider: Jul 26, 2021 Time Seen by a Provider: 10:58 Subjective/Events-last exam She remained intubated and IV fluids. Her Levophed is on hold but she has a marginal blood pressure. She did spike a temperature. Currently receiving IV saline at 125 mL/h for low urine output. Apparently wheezing per RN. She is currently on a fentanyl drip and Versed at 8 mg/h. Will start on a Precedex and try to wean Versed for preparation for CPAP trial in the next 1 or 2 days. Review of Systems ROS PER RN Sepsis Event Evaluation Height, Weight, BMI Height: 5'3.00" Weight: 139lbs. 0.0oz. 63.770075sw; 23.48 BMI Method:Stated Focused Exam Lactate Level 07/24/21 07:10: Lactic Acid Level 4.04*H 07/24/21 09:03: Lactic Acid Level 5.95*H 07/24/21 16:55: Lactic Acid Level 1.75 Exam Exam Patient acknowledged, consented, and participated in this virtual visit which was conducted using real time audio/video Vital Signs Date Time Temp Pulse Resp B/P (MAP) Pulse Ox O2 Delivery O2 Flow Rate FiO2 07/26/21 09:41 70 20 93 50 07/26/21 08:15 92 Mechanical Ventilator 50 07/26/21 08:00 36.9 07/26/21 07:00 68 07/26/21 06:00 74 20 128/53 (78) 95 Mechanical Ventilator 50.00 07/26/21 05:06 65 20 95 50 07/26/21 05:05 37.1 07/26/21 05:00 66 20 137/58 (84) 95 Mechanical Ventilator 50.00 07/26/21 04:00 66 20 147/60 (89) 94 Mechanical Ventilator 50.00 07/26/21 03:51 37.3 07/26/21 03:46 95 Mechanical Ventilator 50 07/26/21 03:00 70 20 140/58 (85) 94 Mechanical Ventilator 50.00 07/26/21 02:34 68 19 94 50 07/26/21 02:00 71 20 143/61 (88) 94 Mechanical Ventilator 50.00 07/26/21 01:00 72 07/26/21 01:00 72 20 142/59 (86) 94 Mechanical Ventilator 50.00 07/26/21 00:07 37.1 07/26/21 00:00 76 20 151/62 (91) 94 Mechanical Ventilator 50.00 07/26/21 00:00 95 Mechanical Ventilator 50 07/25/21 23:44 39.0 07/25/21 23:06 39.0 07/25/21 23:00 79 20 124/54 (77) 94 Mechanical Ventilator 50.00 07/25/21 22:00 77 20 129/56 (80) 94 Mechanical Ventilator 50.00 07/25/21 21:55 79 20 135/58 07/25/21 21:38 79 20 93 50 07/25/21 21:00 78 20 135/58 (83) 95 Mechanical Ventilator 50.00 07/25/21 20:09 77 123/53 07/25/21 20:00 37.9 07/25/21 20:00 95 Mechanical Ventilator 50 07/25/21 20:00 78 20 130/57 (81) 93 Mechanical Ventilator 50.00 07/25/21 19:30 50.00 07/25/21 19:00 80 20 124/53 (76) 92 Mechanical Ventilator 45.00 07/25/21 19:00 80 07/25/21 18:17 77 18 92 45 07/25/21 18:00 75 19 132/56 (81) 94 Mechanical Ventilator 45.00 07/25/21 17:00 74 19 112/49 (70) 91 Mechanical Ventilator 45.00 07/25/21 16:00 74 16 105/47 (66) 95 Mechanical Ventilator 45.00 07/25/21 16:00 Mechanical Ventilator 45 07/25/21 15:00 72 19 113/50 (71) 96 Mechanical Ventilator 45.00 07/25/21 14:20 64 20 96 45 07/25/21 14:00 75 15 140/60 (86) 95 Mechanical Ventilator 45.00 07/25/21 13:00 68 19 127/55 (79) 96 Mechanical Ventilator 45.00 07/25/21 13:00 70 07/25/21 12:00 36.8 07/25/21 12:00 68 20 114/52 (72) 96 Mechanical Ventilator 45.00 07/25/21 12:00 Mechanical Ventilator 45 07/25/21 11:00 77 16 109/48 (68) 95 Mechanical Ventilator 45.00 I & O 07/26/21 06:59 Intake Total 3050 ml Output Total 1425 ml Balance 1625 ml Height & Weight Height: 5'3.00" Weight: 139lbs. 0.0oz. 63.949676ba; 23.48 BMI Method:Stated General Appearance: No Apparent Distress, WD/WN, Chronically ill, Other (Sedated and intubated) HEENT: PERRL/EOMI, Normal ENT Inspection, Pharynx Normal, Moist Mucous Membranes Neck: Full Range of Motion, Normal Inspection, Non Tender Respiratory: Lungs Clear, Normal Breath Sounds Cardiovascular: No Edema, No Gallop, No JVD, No Murmur, Normal Peripheral Pulses, Tachycardia Capillary Refill: Less Than 3 Seconds Peripheral Pulses: 1+ Dorsalis Pedis (R), 1+ Left Dors-Pedis (L) (See free text) Gastrointestinal: soft, no organomegaly Extremity: Normal Capillary Refill, Normal Inspection, Normal Range of Motion, Non Tender, No Calf Tenderness, No Pedal Edema Neurologic/Psychiatric: Alert, Oriented x3, No Motor/Sensory Deficits, Normal Mood/Affect Skin: Normal Color, Warm/Dry Lymphatic: No Adenopathy Other comments PE PER RN Results Lab Laboratory Tests 07/25/21 04:00 07/26/21 02:45 Assessment/Plan Assessment/Plan 1. Acute and chronic hypercarbic and hypoxic respiratory failure requiring mechanical ventilation. 2. COPD with exacerbation. 3. Tobacco abuse disorder. 4. Hypotension secondary to positive pressure ventilation as well as volume deficiency SLOWLY IMPROVING 5. Lactic acidosis partly probably contributing by the Metformin in addition to volume deficiency IMPROVING Recommendations 1. Continue mechanical ventilatory support and repeat blood gases. 2. IV fluidS 3. We will wean levophed 4. Central line placement done. 5. DVT prophylaxis and ulcer prophylaxis 6. continue IV Solu-Medrol and DuoNeb nebulizer treatment. 7. She will be counseled to quit smoking once she gets better. 8. Well overall prognosis is guarded. 9. We will give empirically IV antibiotics. 10. Video visit made and discussed with the patient's RN. Critical Care: Ventilator Management Time spent with patient (mins): 35 JOSE MARMOLEJO MD Jul 26, 2021 11:09
[2021-07-26] MEDS: MIDAZOLAM DRIP PRE-MIX 100 ML IV SCH (12:40)
[2021-07-26] MEDS: DexMEDEtomidine 250 ML DRIP 250 ML IV SCH (12:42)
[2021-07-26] MEDS ORDERED: LORA-404 PO (13:00)
[2021-07-26] MEDS ORDERED: LORA10TA7 PO (13:00)
[2021-07-26] MEDS ORDERED: ALB0.5V INH (13:00)
[2021-07-26] MEDS ORDERED: LOSA1TAB26 PO (13:00)
[2021-07-26] MEDS: hydrALAZINE (APESOLINE) 20 MG/ML VIAL IV PRN (22:38)
[2021-07-27] VITALS (29 sets, daily range): BP systolic 94–173; BP diastolic 49–76
[2021-07-27] MEDS: DexMEDEtomidine 250 ML DRIP 250 ML IV SCH ×3 (00:41→23:30)
[2021-07-27] MEDS: MIDAZOLAM DRIP PRE-MIX 100 ML IV SCH ×2 (00:42→16:57)
[2021-07-27] MEDS: fentaNYL DRIP PRE-MIX 250 ML IV SCH ×5 (00:42→22:00)
[2021-07-27] MEDS: RT-ALBUTEROL/IPRATROPIUM 3 ML (DUONEB) VIAL INH SCH ×6 (02:53→21:15)
[2021-07-27 03:26] LABS: ABG BASE EXCESS -1.4 MMOL/L (-2.5-2.5); ABG OXYGEN SATURATION 98 % (94-100); ABG PCO2 44 MMHG (35-45); ABG PO2 96 MMHG (79-93)
[2021-07-27 03:27] LABS: BASOPHILS % (AUTO) 0 % (0-10); EOSINOPHILS % (AUTO) 0 % (0-10); HEMATOCRIT 25 % (35-52); LYMPHOCYTES # (AUTO) 1.2 10^3/uL (1.0-4.0); LYMPHOCYTES % (AUTO) 7 % (12-44); MEAN CORPUSCULAR HEMOGLOBIN 27 pg (25-34); MEAN CORPUSCULAR HGB CONC 32 g/dL (32-36); MEAN CORPUSCULAR VOLUME 83 fL (80-99); MEAN PLATELET VOLUME 11.1 fL (9.0-12.2); MONOCYTES # (AUTO) 0.8 10^3/uL (0.0-1.0); MONOCYTES % (AUTO) 5 % (0-12); NEUTROPHILS # (AUTO) 14.2 10^3/uL (1.8-7.8); NEUTROPHILS % (AUTO) 86 % (42-75); PLATELET COUNT 210 10^3/uL (130-400); WHITE BLOOD COUNT 16.6 10^3/uL (4.3-11.0)
[2021-07-27 03:29] LABS: ALLENS TEST ARTLINE
[2021-07-27 03:30] LABS: ABG PH 7.34 (7.37-7.43); INSPIRED O2 50%; PATIENT TEMP 36.5; VENTILATOR YES
[2021-07-27 04:17] LABS: ALBUMIN 3.1 GM/DL (3.2-4.5); POTASSIUM 3.8 MMOL/L (3.6-5.0)
[2021-07-27 04:19] LABS: CALCIUM 7.2 MG/DL (8.5-10.1)
[2021-07-27 04:20] LABS: TOTAL PROTEIN 5.4 GM/DL (6.4-8.2)
[2021-07-27 04:22] LABS: BILIRUBIN,TOTAL 0.2 MG/DL (0.1-1.0)
[2021-07-27 04:23] LABS: CREATININE SERUM 0.54 MG/DL (0.60-1.30)
[2021-07-27 04:26] LABS: MAGNESIUM 2.2 MG/DL (1.6-2.4)
[2021-07-27] MEDS: NOREPINEPHRINE 8 MG/250 ML 250 ML IV SCH (05:05)
[2021-07-27] MEDS: POTASSIUM CL 10MEQ/50ML IVPB 50 ML IV SCH (05:54)
[2021-07-27] MEDS: KCL 20 MEQ TAB (K-DUR) PO SCH (05:55)
[2021-07-27] MEDS: MAGNESIUM 1 GM/100 ML IVPB 100 ML IV SCH (05:55)
[2021-07-27] MEDS: inSUlin ASPART (NovoLOG) 1 UNIT/0.01 ML (CHARGE PER UNIT) SC SCH ×4 (06:09→23:38)
[2021-07-27] MEDS: methylPREDNISolone 40 MG/ML (Solu-MEDROL) VIAL IV SCH ×4 (06:09→23:30)
[2021-07-27] MEDS: hydrALAZINE (APESOLINE) 20 MG/ML VIAL IV PRN ×3 (06:09→21:26)
[2021-07-27] MEDS: SENNA W/DOCUSATE (SENOKOT S) TABLET PO SCH ×2 (08:08→21:30)
[2021-07-27] MEDS: DOCUSATE SODIUM 100 MG (COLACE) CAP PO SCH ×2 (08:08→21:30)
[2021-07-27] MEDS: LORATADINE (CLARITIN) 10 MG TAB PO SCH (08:08)
[2021-07-27] MEDS: PANTOPRAZOLE 40 MG (PROTONIX) VIAL IV SCH (08:08)
[2021-07-27] MEDS: ENOXAPARIN 40 MG/0.4 ML (LOVENOX) SYR SC SCH (08:08)
[2021-07-27] MEDS: SENNOSIDES 8.6 MG (SENOKOT) TAB PO SCH ×2 (08:09→21:31)
[2021-07-27] MEDS: PROPOFOL DRIP (ICU) 100 ML IV SCH ×2 (08:09→22:48)
[2021-07-27] MEDS: MONTELUKAST 10 MG (SINGULAIR) TAB PO SCH (08:09)
--- NOTE | 2021-07-27 11:14 | Tele-ICU Progress Note ---
Subjective Date Seen by a Provider: Jul 27, 2021 Time Seen by a Provider: 11:13 Subjective/Events-last exam She remains on mechanical ventilation. Even after starting on a Precedex is where I able to wean her sedation any further because of increase in the heart rate and respiratory distress. Currently she is on Versed 6 mg/h Precedex 1.5 mcg/kg/h and fentanyl drip. If she has increasing secretions. Currently she is on 50% FiO2. She is off Levophed. Fluids at 125 cc/h. Review of Systems ROS PER RN Sepsis Event Evaluation Height, Weight, BMI Height: 5'3.00" Weight: 139lbs. 0.0oz. 63.529662uy; 23.48 BMI Method:Stated Focused Exam Lactate Level 07/24/21 16:55: Lactic Acid Level 1.75 Exam Exam Patient acknowledged, consented, and participated in this virtual visit which was conducted using real time audio/video Vital Signs Date Time Temp Pulse Resp B/P (MAP) Pulse Ox O2 Delivery O2 Flow Rate FiO2 07/27/21 10:34 65 20 94 55 07/27/21 07:49 92 Mechanical Ventilator 50 07/27/21 07:21 66 20 92 55 07/27/21 07:00 70 07/27/21 06:00 36.5 61 20 172/67 (102) 95 Mechanical Ventilator 50.00 07/27/21 05:00 36.5 65 20 159/62 (94) 94 Mechanical Ventilator 55.00 07/27/21 05:00 Mechanical Ventilator 50.00 07/27/21 04:00 92 Mechanical Ventilator 50 07/27/21 04:00 36.5 69 20 149/57 (87) 93 Mechanical Ventilator 55.00 07/27/21 03:00 36.5 64 20 151/59 (89) 95 Mechanical Ventilator 55.00 07/27/21 02:53 62 20 95 55 07/27/21 02:00 36.6 66 20 148/57 (87) 95 Mechanical Ventilator 55.00 07/27/21 01:00 36.5 70 20 145/63 (90) 93 Mechanical Ventilator 55.00 07/27/21 01:00 70 07/27/21 00:42 73 20 117/54 07/27/21 00:41 73 117/54 07/27/21 00:00 92 Mechanical Ventilator 55 07/27/21 00:00 36.5 75 20 126/57 (80) 93 Mechanical Ventilator 55.00 07/26/21 23:13 73 20 94 55 07/26/21 23:00 36.6 74 20 106/44 (64) 94 Mechanical Ventilator 55.00 07/26/21 22:00 36.7 63 20 160/71 (100) 95 Mechanical Ventilator 55.00 07/26/21 21:00 36.6 63 20 156/73 (100) 95 Mechanical Ventilator 55.00 07/26/21 20:00 36.6 68 20 147/70 (95) 94 Mechanical Ventilator 55.00 07/26/21 20:00 92 Mechanical Ventilator 55 07/26/21 19:42 36.4 07/26/21 19:00 36.5 69 20 136/67 (90) 94 Mechanical Ventilator 55.00 07/26/21 19:00 69 07/26/21 18:50 64 20 94 55 07/26/21 18:00 36.6 64 20 150/69 (96) Mechanical Ventilator 55.00 07/26/21 17:00 36.6 68 19 145/69 (94) Mechanical Ventilator 55.00 07/26/21 16:06 92 Mechanical Ventilator 55 07/26/21 16:00 36.8 73 20 129/63 (85) Mechanical Ventilator 55.00 07/26/21 16:00 36.2 07/26/21 15:34 Mechanical Ventilator 55.00 07/26/21 15:00 36.8 74 19 74/59 (64) 93 Mechanical Ventilator 50.00 07/26/21 14:25 71 20 97 50 07/26/21 14:00 36.8 70 20 112/56 (74) 93 Mechanical Ventilator 50.00 07/26/21 13:00 74 07/26/21 13:00 37.0 76 19 108/54 (72) 94 Mechanical Ventilator 50.00 07/26/21 12:42 71 124/60 07/26/21 12:40 71 20 124/60 07/26/21 12:00 37.0 70 19 113/57 (75) 97 Mechanical Ventilator 50.00 07/26/21 11:31 92 Mechanical Ventilator 50 I & O 07/27/21 07:00 Intake Total 720 ml Output Total 1455 ml Balance -735 ml Height & Weight Height: 5'3.00" Weight: 139lbs. 0.0oz. 63.860389vt; 23.48 BMI Method:Stated General Appearance: No Apparent Distress, WD/WN, Chronically ill, Other (Sedated and intubated) HEENT: PERRL/EOMI, Normal ENT Inspection, Pharynx Normal, Moist Mucous Membranes Neck: Full Range of Motion, Normal Inspection, Non Tender Respiratory: Lungs Clear, Normal Breath Sounds Cardiovascular: No Edema, No Gallop, No JVD, No Murmur, Normal Peripheral Pulses, Tachycardia Capillary Refill: Less Than 3 Seconds Peripheral Pulses: 1+ Dorsalis Pedis (R), 1+ Left Dors-Pedis (L) (See free text) Gastrointestinal: soft, no organomegaly Extremity: Normal Capillary Refill, Normal Inspection, Normal Range of Motion, Non Tender, No Calf Tenderness, No Pedal Edema Neurologic/Psychiatric: Alert, Oriented x3, No Motor/Sensory Deficits, Normal Mood/Affect Skin: Normal Color, Warm/Dry Lymphatic: No Adenopathy Other comments PE PER RN Results Lab Laboratory Tests 07/26/21 02:45 07/27/21 03:20 Assessment/Plan Assessment/Plan 1. Acute and chronic hypercarbic and hypoxic respiratory failure requiring mechanical ventilation. 2. COPD with exacerbation. 3. Tobacco abuse disorder. 4. Hypotension secondary to positive pressure ventilation as well as volume contraction improved 5. Lactic acidosis resolved 6. fever with increased ET secreations ,suspect pneumonia Recommendations 1. Continue mechanical ventilatory support, not ready for SBT yet.. 2. sputum for c/s and start iv abx's 3. We will repeat cxr 4. Central line placement done. 5. DVT prophylaxis and ulcer prophylaxis 6. continue IV Solu-Medrol and DuoNeb nebulizer treatment. 7. She will be counseled to quit smoking once she gets better. 8. Well overall prognosis is guarded. 9.. Video visit made and discussed with the patient's RN. Critical Care: Ventilator Management Time spent with patient (mins): 30 JOSE MARMOLEJO MD Jul 27, 2021 11:14
[2021-07-27] MEDS: NS IV 1000 ML 1,000 ML IV SCH ×2 (11:40→16:57)
[2021-07-27] MEDS: CEFEPIME INJECTION 1,000 MG in NS (IVPB) 50 ML IV SCH ×2 (13:27→21:26)
--- NOTE | 2021-07-27 17:01 | Progress Note ---
Subjective Subjective/Events-last exam Afebrile, remains intubated. Opens eyes during exam. Objective Exam Last Set of Vital Signs Vital Signs Date Time Temp Pulse Resp B/P (MAP) Pulse Ox O2 Delivery O2 Flow Rate FiO2 07/27/21 16:57 59 20 173/76 07/27/21 16:00 36.0 07/27/21 15:47 92 Mechanical Ventilator 50 07/27/21 15:00 50.00 Capillary Refill : Less Than 3 Seconds I&O Intake and Output 07/26/21 23:59 Intake Total 1970 ml Output Total 1555 ml Balance 415 ml Intake Oral 0 ml IV Total 1850 ml Other 120 ml Output Urine Total 1555 ml General: Other (opens eyes during exam, intubated) Lungs: Other (ronchi) Heart: Regular Rate Abdomen: Normal Bowel Sounds, Soft Extremities: Other (left foot with edema) Results/Procedures Lab Laboratory Tests 07/26/21 18:08: Glucometer 171H 07/26/21 23:40: Glucometer 181H 07/27/21 03:20: White Blood Count 16.6H, Red Blood Count 3.02L, Hemoglobin 8.0L, Hematocrit 25L, Mean Corpuscular Volume 83, Mean Corpuscular Hemoglobin 27, Mean Corpuscular Hemoglobin Concent 32, Red Cell Distribution Width 17.5H, Platelet Count 210, Mean Platelet Volume 11.1, Immature Granulocyte % (Auto) 2, Neutrophils (%) (Auto) 86H, Lymphocytes (%) (Auto) 7L, Monocytes (%) (Auto) 5, Eosinophils (%) (Auto) 0, Basophils (%) (Auto) 0, Neutrophils # (Auto) 14.2H, Lymphocytes # (Auto) 1.2, Monocytes # (Auto) 0.8, Eosinophils # (Auto) 0.0, Basophils # (Auto) 0.0, Immature Granulocyte # (Auto) 0.3H, Blood Gas Puncture Site ARTLINE, Blood Gas Patient Temperature 36.5, Arterial Blood pH 7.34*L, Arterial Blood Partial Pressure CO2 44, Arterial Blood Partial Pressure O2 96H, Arterial Blood HCO3 24, Arterial Blood Total CO2 25.0, Arterial Blood Oxygen Saturation 98, Arterial Blood Base Excess -1.4, Wes Test ARTLINE, Blood Gas Ventilator Setting YES, Blood Gas Inspired Oxygen 50%, Sodium Level 142, Potassium Level 3.8, Chloride Level 112H, Carbon Dioxide Level 21, Anion Gap 9, Blood Urea Nitrogen 19H, Creatinine 0.54L, Estimat Glomerular Filtration Rate 115, BUN/Creatinine Ratio 35, Glucose Level 197H, Calcium Level 7.2L, Corrected Calcium 7.9L, Magnesium Level 2.2, Total Bilirubin 0.2, Aspartate Amino Transf (AST/SGOT) 18, Alanine Aminotransferase (ALT/SGPT) 17, Alkaline Phosphatase 43, Total Protein 5.4L, Albumin 3.1L 07/27/21 11:36: Glucometer 171H Microbiology 07/24/21 Gram Stain - Final, Complete 07/24/21 Sputum Culture - Final, Complete Usual upper respiratory porfirio 07/24/21 Blood Culture - Preliminary, Resulted No growth 07/24/21 Urine Culture - Final, Complete Gram Pos Mixed Bacterial Porfirio Assessment/Plan Assessment/Plan (1) COPD with acute exacerbation Status: Acute Assessment & Plan: Requiring intubation, currently remains intubated, appreciate [facility] ICU assistance. Solumedrol 80 mg, decreased to q12.. (2) Acute and chronic respiratory failure Status: Acute (3) Diabetes Status: Chronic Assessment & Plan: Sliding scale insulin per ICU protocol. Qualifiers: Qualified Codes: E11.65 - Type 2 diabetes mellitus with hyperglycemia (4) Lactic acid acidosis Status: Resolved Assessment & Plan: Suspect secondary to COPD exacerbation and metformin, resolved. (5) Hypertension Status: Chronic Assessment & Plan: Currently hypotensive, requiring norepinephrine. (6) HX: breast cancer Status: Chronic (7) Hyperlipemia Status: Chronic (8) DVT prophylaxis Status: Acute Assessment & Plan: Enoxaparin LEATHA JUSTIN MD Jul 27, 2021 17:01
[2021-07-28] VITALS (29 sets, daily range): BP systolic 116–183; BP diastolic 58–101
[2021-07-28] MEDS: fentaNYL DRIP PRE-MIX 250 ML IV SCH ×5 (02:17→23:06)
[2021-07-28] MEDS: NS IV 1000 ML 1,000 ML IV SCH (02:17)
[2021-07-28] MEDS: NOREPINEPHRINE 8 MG/250 ML 250 ML IV SCH ×2 (02:21→23:42)
[2021-07-28] MEDS: RT-ALBUTEROL/IPRATROPIUM 3 ML (DUONEB) VIAL INH SCH ×6 (02:29→22:15)
[2021-07-28] MEDS: hydrALAZINE (APESOLINE) 20 MG/ML VIAL IV PRN ×2 (03:06→14:01)
[2021-07-28 04:43] LABS: BASOPHILS % (AUTO) 0 % (0-10); EOSINOPHILS % (AUTO) 0 % (0-10); HEMATOCRIT 26 % (35-52); LYMPHOCYTES # (AUTO) 0.8 10^3/uL (1.0-4.0); LYMPHOCYTES % (AUTO) 6 % (12-44); MEAN CORPUSCULAR HEMOGLOBIN 26 pg (25-34); MEAN CORPUSCULAR HGB CONC 31 g/dL (32-36); MEAN CORPUSCULAR VOLUME 83 fL (80-99); MEAN PLATELET VOLUME 10.6 fL (9.0-12.2); MONOCYTES # (AUTO) 0.6 10^3/uL (0.0-1.0); MONOCYTES % (AUTO) 4 % (0-12); NEUTROPHILS # (AUTO) 12.5 10^3/uL (1.8-7.8); NEUTROPHILS % (AUTO) 87 % (42-75); PLATELET COUNT 225 10^3/uL (130-400); WHITE BLOOD COUNT 14.5 10^3/uL (4.3-11.0)
[2021-07-28 04:47] LABS: ABG BASE EXCESS -2.9 MMOL/L (-2.5-2.5); ABG OXYGEN SATURATION 96 % (94-100); ABG PCO2 41 MMHG (35-45); ABG PH 7.35 (7.37-7.43); ABG PO2 81 MMHG (79-93); ABG TCO2 23.3 MMOL/L (21.0-31.0)
[2021-07-28 04:58] LABS: ALBUMIN 2.8 GM/DL (3.2-4.5); POTASSIUM 3.7 MMOL/L (3.6-5.0)
[2021-07-28 04:59] LABS: CALCIUM 7.2 MG/DL (8.5-10.1)
[2021-07-28 05:02] LABS: BILIRUBIN,TOTAL 0.2 MG/DL (0.1-1.0)
[2021-07-28 05:04] LABS: CREATININE SERUM 0.51 MG/DL (0.60-1.30); PHOSPHORUS 1.9 MG/DL (2.3-4.7)
[2021-07-28 05:07] LABS: ALLENS TEST POSITIVE; INSPIRED O2 50%; MAGNESIUM 2.1 MG/DL (1.6-2.4); PATIENT TEMP 36.3; VENTILATOR YES
[2021-07-28] MEDS: MAGNESIUM 1 GM/100 ML IVPB 100 ML IV SCH (05:18)
[2021-07-28] MEDS: POTASSIUM CL 10MEQ/50ML IVPB 50 ML IV SCH (05:18)
[2021-07-28] MEDS: KCL 20 MEQ TAB (K-DUR) PO SCH (05:18)
[2021-07-28] MEDS: inSUlin ASPART (NovoLOG) 1 UNIT/0.01 ML (CHARGE PER UNIT) SC SCH ×4 (05:41→23:42)
[2021-07-28] MEDS: methylPREDNISolone 40 MG/ML (Solu-MEDROL) VIAL IV SCH ×4 (05:41→23:42)
[2021-07-28] MEDS: CEFEPIME INJECTION 1,000 MG in NS (IVPB) 50 ML IV SCH ×4 (05:41→23:41)
[2021-07-28] MEDS: MIDAZOLAM DRIP PRE-MIX 100 ML IV SCH (06:14)
--- NOTE | 2021-07-28 06:29 | Diagnostic Imaging Report ---
INDICATION: Respiratory failure. Frontal chest obtained at 03:08 a.m. compared to 07/24/2021. FINDINGS: ET tube and NG tube are unchanged. There is a new left IJ central catheter tip overlying the upper SVC. There is no pneumothorax. There is COPD change. There is central vascular congestion. There is some minimal right basilar atelectasis. IMPRESSION: Minimal right basilar atelectasis. Central vascular congestion. Life support lines as above. There is no pneumothorax or pleural fluid. Dictated by: Dictated on workstation # [id number]
[2021-07-28] MEDS: PANTOPRAZOLE 40 MG (PROTONIX) VIAL IV SCH ×2 (08:14→20:43)
[2021-07-28] MEDS: ENOXAPARIN 40 MG/0.4 ML (LOVENOX) SYR SC SCH (08:14)
[2021-07-28] MEDS: MONTELUKAST 10 MG (SINGULAIR) TAB PO SCH (08:15)
[2021-07-28] MEDS: SENNA W/DOCUSATE (SENOKOT S) TABLET PO SCH ×2 (08:15→21:01)
[2021-07-28] MEDS: LORATADINE (CLARITIN) 10 MG TAB PO SCH (08:15)
[2021-07-28] MEDS: SENNOSIDES 8.6 MG (SENOKOT) TAB PO SCH ×2 (08:15→21:01)
[2021-07-28] MEDS: DOCUSATE SODIUM 100 MG (COLACE) CAP PO SCH ×2 (08:15→21:00)
[2021-07-28] MEDS: DexMEDEtomidine 250 ML DRIP 250 ML IV SCH ×2 (09:29→20:43)
--- NOTE | 2021-07-28 09:47 | Progress Note ---
Subjective Subjective/Events-last exam Afebrile, remains intubated. Had some blood from OG, PPI increased. Objective Exam Last Set of Vital Signs Vital Signs Date Time Temp Pulse Resp B/P (MAP) Pulse Ox O2 Delivery O2 Flow Rate FiO2 07/28/21 09:29 66 136/64 07/28/21 08:35 94 Mechanical Ventilator 50 07/28/21 07:43 36.2 07/28/21 07:02 20 07/28/21 06:00 50.00 Capillary Refill : Less Than 3 Seconds I&O Intake and Output 07/28/21 00:00 Intake Total 1090 ml Output Total 1300 ml Balance -210 ml Intake Oral 0 ml IV Total 1000 ml Other 90 ml Output Urine Total 1300 ml General: Other (opens eyes to voice) Lungs: Other (inspiratory wheeze) Heart: Regular Rate, No Murmurs Extremities: Other (edema left foot dorsum, no leg edema) Results/Procedures Lab Laboratory Tests 07/27/21 11:36: Glucometer 171H 07/27/21 17:15: Glucometer 163H 07/27/21 23:38: Glucometer 172H 07/28/21 04:30: White Blood Count 14.5H, Red Blood Count 3.07L, Hemoglobin 8.0L, Hematocrit 26L, Mean Corpuscular Volume 83, Mean Corpuscular Hemoglobin 26, Mean Corpuscular Hemoglobin Concent 31L, Red Cell Distribution Width 17.6H, Platelet Count 225, Mean Platelet Volume 10.6, Immature Granulocyte % (Auto) 3, Neutrophils (%) (Auto) 87H, Lymphocytes (%) (Auto) 6L, Monocytes (%) (Auto) 4, Eosinophils (%) (Auto) 0, Basophils (%) (Auto) 0, Neutrophils # (Auto) 12.5H, Lymphocytes # (Auto) 0.8L, Monocytes # (Auto) 0.6, Eosinophils # (Auto) 0.0, Basophils # (Auto) 0.0, Immature Granulocyte # (Auto) 0.4H, Blood Gas Puncture Site ARTLINE, Blood Gas Patient Temperature 36.3, Arterial Blood pH 7.35L, Arterial Blood Partial Pressure CO2 41, Arterial Blood Partial Pressure O2 81, Arterial Blood HCO3 22L, Arterial Blood Total CO2 23.3, Arterial Blood Oxygen Saturation 96, Arterial Blood Base Excess -2.9L, Wes Test POSITIVE, Blood Gas Ventilator Setting YES, Blood Gas Inspired Oxygen 50%, Sodium Level 143, Potassium Level 3.7, Chloride Level 114H, Carbon Dioxide Level 20L, Anion Gap 9, Blood Urea Nitrogen 23H, Creatinine 0.51L, Estimat Glomerular Filtration Rate 123, BUN/Creatinine Ratio 45, Glucose Level 194H, Calcium Level 7.2L, Corrected Calcium 8.2L, Phosphorus Level 1.9L, Magnesium Level 2.1, Total Bilirubin 0.2, Aspartate Amino Transf (AST/SGOT) 9, Alanine Aminotransferase (ALT/SGPT) 12, Alkaline Phosphatase 36L, Total Protein 5.0L, Albumin 2.8L, Triglycerides Level 282H Microbiology 07/24/21 Gram Stain - Final, Complete 07/24/21 Sputum Culture - Final, Complete Usual upper respiratory porfirio 07/24/21 Blood Culture - Preliminary, Resulted No growth 07/24/21 Urine Culture - Final, Complete Gram Pos Mixed Bacterial Porfirio Assessment/Plan Assessment/Plan (1) COPD with acute exacerbation Status: Acute Assessment & Plan: Requiring intubation, currently remains intubated, appreciate [facility] ICU assistance. Solumedrol 80 mg q6. Started on cefepime on 07/27. (2) Acute and chronic respiratory failure Status: Acute (3) Diabetes Status: Chronic Assessment & Plan: Sliding scale insulin per ICU protocol. Qualifiers: Qualified Codes: E11.65 - Type 2 diabetes mellitus with hyperglycemia (4) Lactic acid acidosis Status: Resolved Assessment & Plan: Suspect secondary to COPD exacerbation and metformin, resolved. (5) Hypertension Status: Chronic Assessment & Plan: Currently hypotensive, requiring norepinephrine. (6) HX: breast cancer Status: Chronic (7) Hyperlipemia Status: Chronic (8) DVT prophylaxis Status: Acute Assessment & Plan: Enoxaparin LEATHA JUSTIN MD Jul 28, 2021 09:47
[2021-07-28] MEDS ORDERED: POT PHOS/NA PHOS (K-PHOS NEUTRAL) PO NR (10:04)
[2021-07-28] MEDS: 1/2 NS IV SOLUTION 1,000 ML IV SCH ×2 (10:43→23:06)
[2021-07-28] MEDS: PROPOFOL DRIP (ICU) 100 ML IV SCH (12:25)
[2021-07-28] MEDS ORDERED: POT PHOS/NA PHOS (K-PHOS NEUTRAL) PO ONE (21:00)
[2021-07-29] VITALS (30 sets, daily range): BP systolic 95–169; BP diastolic 45–78
[2021-07-29] MEDS: MIDAZOLAM DRIP PRE-MIX 100 ML IV SCH ×3 (00:41→21:04)
[2021-07-29] MEDS: RT-ALBUTEROL/IPRATROPIUM 3 ML (DUONEB) VIAL INH SCH ×6 (01:50→21:52)
[2021-07-29] MEDS: PROPOFOL DRIP (ICU) 100 ML IV SCH ×2 (02:20→14:48)
[2021-07-29] MEDS: fentaNYL DRIP PRE-MIX 250 ML IV SCH ×6 (03:03→21:36)
[2021-07-29 03:57] LABS: ABG BASE EXCESS -2.9 MMOL/L (-2.5-2.5); ABG OXYGEN SATURATION 97 % (94-100); ABG PCO2 42 MMHG (35-45); ABG PO2 75 MMHG (79-93); ABG TCO2 23.5 MMOL/L (21.0-31.0)
[2021-07-29 04:00] LABS: ABG PH 7.34 (7.37-7.43); ALLENS TEST ARTLINE; INSPIRED O2 50%; PATIENT TEMP 35.9; VENTILATOR YES
[2021-07-29 04:01] LABS: BASOPHILS % (AUTO) 0 % (0-10); EOSINOPHILS % (AUTO) 0 % (0-10); HEMATOCRIT 25 % (35-52); LYMPHOCYTES # (AUTO) 0.9 10^3/uL (1.0-4.0); LYMPHOCYTES % (AUTO) 7 % (12-44); MEAN CORPUSCULAR HEMOGLOBIN 26 pg (25-34); MEAN CORPUSCULAR HGB CONC 32 g/dL (32-36); MEAN CORPUSCULAR VOLUME 82 fL (80-99); MEAN PLATELET VOLUME 10.8 fL (9.0-12.2); MONOCYTES # (AUTO) 0.6 10^3/uL (0.0-1.0); MONOCYTES % (AUTO) 5 % (0-12); NEUTROPHILS # (AUTO) 11.3 10^3/uL (1.8-7.8); NEUTROPHILS % (AUTO) 86 % (42-75); PLATELET COUNT 232 10^3/uL (130-400); WHITE BLOOD COUNT 13.2 10^3/uL (4.3-11.0)
[2021-07-29] MEDS: hydrALAZINE (APESOLINE) 20 MG/ML VIAL IV PRN (04:19)
[2021-07-29 04:29] LABS: ALBUMIN 2.7 GM/DL (3.2-4.5)
[2021-07-29 04:30] LABS: POTASSIUM 3.7 MMOL/L (3.6-5.0)
[2021-07-29 04:31] LABS: CALCIUM 7.6 MG/DL (8.5-10.1)
[2021-07-29 04:32] LABS: TOTAL PROTEIN 4.9 GM/DL (6.4-8.2)
[2021-07-29 04:34] LABS: BILIRUBIN,TOTAL 0.2 MG/DL (0.1-1.0)
[2021-07-29 04:36] LABS: CREATININE SERUM 0.5 MG/DL (0.60-1.30)
[2021-07-29 04:38] LABS: MAGNESIUM 2.1 MG/DL (1.6-2.4)
[2021-07-29] MEDS: POTASSIUM CL 10MEQ/50ML IVPB 50 ML IV SCH (04:59)
[2021-07-29] MEDS: MAGNESIUM 1 GM/100 ML IVPB 100 ML IV SCH (04:59)
[2021-07-29] MEDS: KCL 20 MEQ TAB (K-DUR) PO SCH (04:59)
[2021-07-29] MEDS: CEFEPIME INJECTION 1,000 MG in NS (IVPB) 50 ML IV SCH ×4 (05:23→23:34)
[2021-07-29] MEDS: methylPREDNISolone 40 MG/ML (Solu-MEDROL) VIAL IV SCH ×4 (05:23→23:34)
[2021-07-29] MEDS: inSUlin ASPART (NovoLOG) 1 UNIT/0.01 ML (CHARGE PER UNIT) SC SCH ×4 (05:24→23:34)
[2021-07-29] MEDS: DexMEDEtomidine 250 ML DRIP 250 ML IV SCH ×2 (07:06→16:29)
[2021-07-29] MEDS: LORATADINE (CLARITIN) 10 MG TAB PO SCH (08:08)
[2021-07-29] MEDS: SENNOSIDES 8.6 MG (SENOKOT) TAB PO SCH ×2 (08:08→21:04)
[2021-07-29] MEDS: SENNA W/DOCUSATE (SENOKOT S) TABLET PO SCH ×2 (08:08→21:04)
[2021-07-29] MEDS: MONTELUKAST 10 MG (SINGULAIR) TAB PO SCH (08:08)
[2021-07-29] MEDS: PANTOPRAZOLE 40 MG (PROTONIX) VIAL IV SCH ×2 (08:08→21:03)
[2021-07-29] MEDS: ENOXAPARIN 40 MG/0.4 ML (LOVENOX) SYR SC SCH (08:09)
[2021-07-29] MEDS: DOCUSATE SODIUM 100 MG (COLACE) CAP PO SCH ×3 (08:09→21:07)
[2021-07-29] MEDS: 1/2 NS IV SOLUTION 1,000 ML IV SCH (11:29)
--- NOTE | 2021-07-29 12:29 | Tele-ICU Progress Note ---
Subjective Date Seen by a Provider: Jul 28, 2021 Time Seen by a Provider: 12:27 Sepsis Event Evaluation Height, Weight, BMI Height: 5'3.00" Weight: 139lbs. 0.0oz. 63.653738dg; 23.48 BMI Method:Stated Exam Exam Patient acknowledged, consented, and participated in this virtual visit which was conducted using real time audio/video Vital Signs Date Time Temp Pulse Resp B/P (MAP) Pulse Ox O2 Delivery O2 Flow Rate FiO2 07/29/21 11:26 94 Mechanical Ventilator 50 07/29/21 11:00 62 19 111/53 (72) 94 Mechanical Ventilator 50.00 07/29/21 10:36 60 20 95 50 07/29/21 10:04 58 19 116/55 07/29/21 10:00 60 19 110/54 (72) 94 Mechanical Ventilator 50.00 07/29/21 09:00 58 19 116/55 (75) 94 Mechanical Ventilator 50.00 07/29/21 08:58 36.0 07/29/21 08:48 93 Mechanical Ventilator 50 07/29/21 08:00 60 20 141/64 (89) 94 Mechanical Ventilator 50.00 07/29/21 07:06 56 144/74 07/29/21 07:00 56 19 136/58 (84) 94 Mechanical Ventilator 50.00 07/29/21 07:00 60 07/29/21 06:54 56 20 94 50 07/29/21 06:00 58 19 130/56 (80) 94 Mechanical Ventilator 50.00 07/29/21 05:00 61 20 123/54 (77) 95 Mechanical Ventilator 50.00 07/29/21 04:00 93 Mechanical Ventilator 50 07/29/21 04:00 57 20 162/69 (100) 95 Mechanical Ventilator 50.00 07/29/21 04:00 35.9 07/29/21 03:00 60 20 156/67 (96) 95 Mechanical Ventilator 50.00 07/29/21 02:00 61 20 158/75 (102) 95 Mechanical Ventilator 50.00 07/29/21 01:50 60 20 95 50 07/29/21 01:00 60 19 161/74 (103) 94 Mechanical Ventilator 50.00 07/29/21 01:00 60 07/29/21 00:41 62 20 151/70 07/29/21 00:00 62 20 151/70 (97) 94 Mechanical Ventilator 50.00 07/29/21 00:00 94 Mechanical Ventilator 50 07/28/21 23:54 36.0 07/28/21 23:00 64 19 137/65 (89) 94 Mechanical Ventilator 50.00 07/28/21 22:15 68 20 94 50 07/28/21 22:00 71 20 120/62 (81) 93 Mechanical Ventilator 50.00 07/28/21 21:00 67 19 124/63 (83) 93 Mechanical Ventilator 50.00 07/28/21 20:43 61 135/63 07/28/21 20:00 75 23 124/63 (83) 94 Mechanical Ventilator 50.00 07/28/21 20:00 94 Mechanical Ventilator 50 07/28/21 19:00 73 07/28/21 19:00 73 19 128/63 (84) 93 Mechanical Ventilator 50.00 07/28/21 18:28 61 18 94 50 07/28/21 18:00 35.5 127 60 127/60 (82) 85 Mechanical Ventilator 50.00 07/28/21 17:00 35.4 122 59 122/59 (80) 82 Mechanical Ventilator 50.00 07/28/21 16:11 94 Mechanical Ventilator 50 07/28/21 16:00 35.5 66 20 124/61 (82) 95 Mechanical Ventilator 50.00 07/28/21 15:00 35.5 64 20 116/58 (77) 95 Mechanical Ventilator 50.00 07/28/21 14:30 58 20 94 50 07/28/21 14:00 35.6 54 20 183/79 (113) 94 Mechanical Ventilator 50.00 07/28/21 13:00 55 07/28/21 13:00 35.7 57 20 175/77 (109) 94 Mechanical Ventilator 50.00 I & O 07/29/21 07:00 Intake Total 1280 ml Output Total 1250 ml Balance 30 ml Height & Weight Height: 5'3.00" Weight: 139lbs. 0.0oz. 63.640944do; 23.48 BMI Method:Stated General Appearance: No Apparent Distress, WD/WN, Chronically ill, Other (Sedated and intubated) HEENT: PERRL/EOMI, Normal ENT Inspection, Pharynx Normal, Moist Mucous Membranes Neck: Full Range of Motion, Normal Inspection, Non Tender Respiratory: Lungs Clear, Normal Breath Sounds Cardiovascular: No Edema, No Gallop, No JVD, No Murmur, Normal Peripheral Pulses, Tachycardia Capillary Refill: Less Than 3 Seconds Peripheral Pulses: 1+ Dorsalis Pedis (R), 1+ Left Dors-Pedis (L) (See free text) Gastrointestinal: soft, no organomegaly Extremity: Normal Capillary Refill, Normal Inspection, Normal Range of Motion, Non Tender, No Calf Tenderness, No Pedal Edema Neurologic/Psychiatric: Alert, Oriented x3, No Motor/Sensory Deficits, Normal Mood/Affect Skin: Normal Color, Warm/Dry Lymphatic: No Adenopathy Results Lab Laboratory Tests 07/28/21 04:30 07/29/21 03:45 Assessment/Plan Assessment/Plan (Tele-ICU Physician , Progress Note ) Available chart/ vitals / labs / Images reviewed Video assessment done using teleICU camera, rest of exam as per RN Discussed with RN , EXAM PER RN Events overnight : Afebrile Pressors: , hemodynamically stable A/P 1. Acute and chronic hypercarbic and hypoxic respiratory failure requiring mechanical ventilation. 2. COPD with exacerbation. 3. Tobacco abuse disorder. 4. Hypotension secondary to positive pressure ventilation as well as volume contraction improved 5. Lactic acidosis resolved 6. fever with increased ET secreations ,suspect pneumonia 7, bloody secretion in NG 07/28 PLAN Continue mechanical ventilatory support, not ready for SBT yet. continue IV Solu-Medrol and DuoNeb nebulizer treatment. Increase PPI to bid sutum for c/s and cont iv abx's ( 07/27 DVT prophylaxis continue IV Solu-Medrol and DuoNeb nebulizer treatment. Lines : cemtral line (Central Line Necessity Reviewed) [place]: + OG: Nutrition: start TF Analgesia: Anxiety/ delirium VTE Prophylaxis: rosanne proph Stress Ulcer Prophylaxis: ppi Glycemic Control: Plans in collaboration with bedside consultants and IM MDs. Discussed with RN to reach out if any questions or concerns A total of 32 minutes of critical care time was devoted to this patient today, required to treat and/or prevent further deterioration of critical care condition ( as above) . Interventions Major-Respiratory failure - evaluation and management Intermediate-Communication with other healthcare providers and/or family, Diagnostic test evaluation, Infection - evaluation and management, Medication change / dose adj ustmZULEMA Fofana MD Jul 29, 2021 12:29
--- NOTE | 2021-07-29 12:33 | Tele-ICU Progress Note ---
Subjective Date Seen by a Provider: Jul 29, 2021 Time Seen by a Provider: 09:37 Sepsis Event Evaluation Height, Weight, BMI Height: 5'3.00" Weight: 139lbs. 0.0oz. 63.547245pa; 23.48 BMI Method:Stated Exam Exam Patient acknowledged, consented, and participated in this virtual visit which was conducted using real time audio/video Vital Signs Date Time Temp Pulse Resp B/P (MAP) Pulse Ox O2 Delivery O2 Flow Rate FiO2 07/29/21 11:26 94 Mechanical Ventilator 50 07/29/21 11:00 62 19 111/53 (72) 94 Mechanical Ventilator 50.00 07/29/21 10:36 60 20 95 50 07/29/21 10:04 58 19 116/55 07/29/21 10:00 60 19 110/54 (72) 94 Mechanical Ventilator 50.00 07/29/21 09:00 58 19 116/55 (75) 94 Mechanical Ventilator 50.00 07/29/21 08:58 36.0 07/29/21 08:48 93 Mechanical Ventilator 50 07/29/21 08:00 60 20 141/64 (89) 94 Mechanical Ventilator 50.00 07/29/21 07:06 56 144/74 07/29/21 07:00 56 19 136/58 (84) 94 Mechanical Ventilator 50.00 07/29/21 07:00 60 07/29/21 06:54 56 20 94 50 07/29/21 06:00 58 19 130/56 (80) 94 Mechanical Ventilator 50.00 07/29/21 05:00 61 20 123/54 (77) 95 Mechanical Ventilator 50.00 07/29/21 04:00 93 Mechanical Ventilator 50 07/29/21 04:00 57 20 162/69 (100) 95 Mechanical Ventilator 50.00 07/29/21 04:00 35.9 07/29/21 03:00 60 20 156/67 (96) 95 Mechanical Ventilator 50.00 07/29/21 02:00 61 20 158/75 (102) 95 Mechanical Ventilator 50.00 07/29/21 01:50 60 20 95 50 07/29/21 01:00 60 19 161/74 (103) 94 Mechanical Ventilator 50.00 07/29/21 01:00 60 07/29/21 00:41 62 20 151/70 07/29/21 00:00 62 20 151/70 (97) 94 Mechanical Ventilator 50.00 07/29/21 00:00 94 Mechanical Ventilator 50 07/28/21 23:54 36.0 07/28/21 23:00 64 19 137/65 (89) 94 Mechanical Ventilator 50.00 07/28/21 22:15 68 20 94 50 07/28/21 22:00 71 20 120/62 (81) 93 Mechanical Ventilator 50.00 07/28/21 21:00 67 19 124/63 (83) 93 Mechanical Ventilator 50.00 07/28/21 20:43 61 135/63 07/28/21 20:00 75 23 124/63 (83) 94 Mechanical Ventilator 50.00 07/28/21 20:00 94 Mechanical Ventilator 50 07/28/21 19:00 73 07/28/21 19:00 73 19 128/63 (84) 93 Mechanical Ventilator 50.00 07/28/21 18:28 61 18 94 50 07/28/21 18:00 35.5 127 60 127/60 (82) 85 Mechanical Ventilator 50.00 07/28/21 17:00 35.4 122 59 122/59 (80) 82 Mechanical Ventilator 50.00 07/28/21 16:11 94 Mechanical Ventilator 50 07/28/21 16:00 35.5 66 20 124/61 (82) 95 Mechanical Ventilator 50.00 07/28/21 15:00 35.5 64 20 116/58 (77) 95 Mechanical Ventilator 50.00 07/28/21 14:30 58 20 94 50 07/28/21 14:00 35.6 54 20 183/79 (113) 94 Mechanical Ventilator 50.00 07/28/21 13:00 55 07/28/21 13:00 35.7 57 20 175/77 (109) 94 Mechanical Ventilator 50.00 I & O 07/29/21 07:00 Intake Total 1280 ml Output Total 1250 ml Balance 30 ml Height & Weight Height: 5'3.00" Weight: 139lbs. 0.0oz. [id number]; 23.48 BMI Method:Stated General Appearance: No Apparent Distress, WD/WN, Chronically ill, Other (Sedated and intubated) HEENT: PERRL/EOMI, Normal ENT Inspection, Pharynx Normal, Moist Mucous Membranes Neck: Full Range of Motion, Normal Inspection, Non Tender Respiratory: Lungs Clear, Normal Breath Sounds Cardiovascular: No Edema, No Gallop, No JVD, No Murmur, Normal Peripheral Pulses, Tachycardia Capillary Refill: Less Than 3 Seconds Peripheral Pulses: 1+ Dorsalis Pedis (R), 1+ Left Dors-Pedis (L) (See free text) Gastrointestinal: soft, no organomegaly Extremity: Normal Capillary Refill, Normal Inspection, Normal Range of Motion, Non Tender, No Calf Tenderness, No Pedal Edema Neurologic/Psychiatric: Alert, Oriented x3, No Motor/Sensory Deficits, Normal Mood/Affect Skin: Normal Color, Warm/Dry Lymphatic: No Adenopathy Results Lab Laboratory Tests 07/28/21 04:30 07/29/21 03:45 Assessment/Plan Assessment/Plan (Tele-ICU Physician , Progress Note ) Available chart/ vitals / labs / Images reviewed Video assessment done using teleICU camera, rest of exam as per RN Discussed with RN , EXAM PER RN Events overnight : secreation in ETT Afebrile Pressors: , hemodynamically stable versed 10 , precedex 0.5 fentanyl 300 - RASS -1 VENT SETTINGS and ABG reviewed Not candidate for SBT today REVIEWED Cardiovascular Stability / Sedation Score / FI02/PEEP / ABG / CXR A/P Acute and chronic hypercarbic and hypoxic respiratory failure r - intubated , follow on vent - hopefully SBT tomorrow AECOPD - still significant wheezing , PAP 40 - solumedrol nebs possible PNA -sputum for c/s and cont iv abx's ( 07/27 Hypotension secondary to positive pressure ventilation as well as volume contraction -improved bloody secretion in NG 07/28 - Increase PPI to bid Lines : cetral line (Central Line Necessity Reviewed) [place]: + OG:+ Nutrition: start TF Analgesia: Anxiety/ delirium VTE Prophylaxis: rosanne proph Stress Ulcer Prophylaxis: ppi Glycemic Control: Plans in collaboration with bedside consultants and IM MDs. Discussed with RN to reach out if any questions or concerns A total of 33 minutes of critical care time was devoted to this patient today, required to treat and/or prevent further deterioration of critical care condition ( as above ) ZULEMA FUNK MD Jul 29, 2021 12:33
--- NOTE | 2021-07-29 13:09 | Progress Note ---
Subjective Subjective/Events-last exam Afebrile, still requiring mechanical ventilation. Objective Exam Last Set of Vital Signs Vital Signs Date Time Temp Pulse Resp B/P (MAP) Pulse Ox O2 Delivery O2 Flow Rate FiO2 07/29/21 12:43 83 07/29/21 11:26 94 Mechanical Ventilator 50 07/29/21 11:00 19 111/53 (72) 50.00 07/29/21 08:58 36.0 Capillary Refill : Less Than 3 Seconds I&O Intake and Output 07/29/21 00:00 Intake Total 1020 ml Output Total 1350 ml Balance -330 ml Intake Oral 0 ml IV Total 750 ml Other 270 ml Output Urine Total 1350 ml General: Other (opens eyes to touch) Lungs: Other (ronchi) Heart: Regular Rate, No Murmurs Abdomen: Normal Bowel Sounds, Soft Extremities: No Edema Results/Procedures Lab Laboratory Tests 07/28/21 17:38: Glucometer 156H 07/28/21 23:40: Glucometer 173H 07/29/21 03:45: White Blood Count 13.2H, Red Blood Count 3.07L, Hemoglobin 8.0L, Hematocrit 25L, Mean Corpuscular Volume 82, Mean Corpuscular Hemoglobin 26, Mean Corpuscular Hemoglobin Concent 32, Red Cell Distribution Width 17.7H, Platelet Count 232, Mean Platelet Volume 10.8, Immature Granulocyte % (Auto) 3, Neutrophils (%) (Auto) 86H, Lymphocytes (%) (Auto) 7L, Monocytes (%) (Auto) 5, Eosinophils (%) (Auto) 0, Basophils (%) (Auto) 0, Neutrophils # (Auto) 11.3H, Lymphocytes # (Auto) 0.9L, Monocytes # (Auto) 0.6, Eosinophils # (Auto) 0.0, Basophils # (Auto) 0.0, Immature Granulocyte # (Auto) 0.4H, Blood Gas Puncture Site ARTLINE, Blood Gas Patient Temperature 35.9, Arterial Blood pH 7.34*L, Arterial Blood Partial Pressure CO2 42, Arterial Blood Partial Pressure O2 75L, Arterial Blood HCO3 22L, Arterial Blood Total CO2 23.5, Arterial Blood Oxygen Saturation 97, Arterial Blood Base Excess -2.9L, Wes Test ARTLINE, Blood Gas Ventilator Setting YES, Blood Gas Inspired Oxygen 50%, Sodium Level 142, Potassium Level 3.7, Chloride Level 113H, Carbon Dioxide Level 20L, Anion Gap 9, Blood Urea Nitrogen 22H, Creatinine 0.50L, Estimat Glomerular Filtration Rate 125, BUN/Creatinine Ratio 44, Glucose Level 195H, Calcium Level 7.6L, Corrected Calcium 8.6, Magnesium Level 2.1, Total Bilirubin 0.2, Aspartate Amino Transf (AST/SGOT) 9, Alanine Aminotransferase (ALT/SGPT) 12, Alkaline Phosphatase 38L, Total Protein 4.9L, Albumin 2.7L 07/29/21 11:34: Glucometer 179H Microbiology 07/27/21 Gram Stain - Final, Resulted 07/27/21 Sputum Culture - Preliminary, Resulted Usual upper respiratory porfirio 07/24/21 Blood Culture - Preliminary, Resulted No growth 07/24/21 Urine Culture - Final, Complete Gram Pos Mixed Bacterial Porfirio Assessment/Plan Assessment/Plan (1) COPD with acute exacerbation Status: Acute Assessment & Plan: Requiring intubation, currently remains intubated, appreciate Nat ICU assistance. Solumedrol 80 mg q6. Started on cefepime on 07/27. (2) Acute and chronic respiratory failure Status: Acute (3) Diabetes Status: Chronic Assessment & Plan: Sliding scale insulin per ICU protocol. Qualifiers: Qualified Codes: E11.65 - Type 2 diabetes mellitus with hyperglycemia (4) Lactic acid acidosis Status: Resolved Assessment & Plan: Suspect secondary to COPD exacerbation and metformin, resolved. (5) Hypertension Status: Chronic Assessment & Plan: Currently hypotensive, requiring norepinephrine initially, maintaining BP at this time. (6) HX: breast cancer Status: Chronic (7) Hyperlipemia Status: Chronic (8) DVT prophylaxis Status: Acute Assessment & Plan: Enoxaparin LEATHA JUSTIN MD Jul 29, 2021 13:08
[2021-07-29] MEDS: NOREPINEPHRINE 8 MG/250 ML 250 ML IV SCH (21:32)
[2021-07-30] VITALS (30 sets, daily range): BP systolic 122–233; BP diastolic 50–118
[2021-07-30] MEDS: fentaNYL DRIP PRE-MIX 250 ML IV SCH ×6 (01:09→23:27)
[2021-07-30] MEDS: DexMEDEtomidine 250 ML DRIP 250 ML IV SCH ×3 (01:10→19:50)
[2021-07-30] MEDS: RT-ALBUTEROL/IPRATROPIUM 3 ML (DUONEB) VIAL INH SCH ×6 (01:36→21:48)
[2021-07-30] MEDS: PROPOFOL DRIP (ICU) 100 ML IV SCH ×2 (03:55→17:32)
[2021-07-30 04:36] LABS: ABG BASE EXCESS -0.5 MMOL/L (-2.5-2.5); ABG OXYGEN SATURATION 97 % (94-100); ABG PCO2 44 MMHG (35-45); ABG PH 7.36 (7.37-7.43); ABG PO2 81 MMHG (79-93); ABG TCO2 25.6 MMOL/L (21.0-31.0)
[2021-07-30 04:37] LABS: BASOPHILS % (AUTO) 0 % (0-10); EOSINOPHILS % (AUTO) 0 % (0-10); HEMATOCRIT 26 % (35-52); HEMOGLOBIN 8.2 g/dL (11.5-16.0); LYMPHOCYTES # (AUTO) 1.2 10^3/uL (1.0-4.0); LYMPHOCYTES % (AUTO) 7 % (12-44); MEAN CORPUSCULAR HEMOGLOBIN 26 pg (25-34); MEAN CORPUSCULAR HGB CONC 32 g/dL (32-36); MEAN CORPUSCULAR VOLUME 82 fL (80-99); MEAN PLATELET VOLUME 11.4 fL (9.0-12.2); MONOCYTES # (AUTO) 0.8 10^3/uL (0.0-1.0); MONOCYTES % (AUTO) 5 % (0-12); NEUTROPHILS % (AUTO) 84 % (42-75); PLATELET COUNT 251 10^3/uL (130-400); WHITE BLOOD COUNT 15.5 10^3/uL (4.3-11.0)
[2021-07-30 04:41] LABS: ALLENS TEST ART LINE; INSPIRED O2 45%; VENTILATOR YES
[2021-07-30 04:47] LABS: ALBUMIN 2.7 GM/DL (3.2-4.5)
[2021-07-30 04:48] LABS: POTASSIUM 4.1 MMOL/L (3.6-5.0)
[2021-07-30 04:50] LABS: TOTAL PROTEIN 4.8 GM/DL (6.4-8.2)
[2021-07-30 04:52] LABS: BILIRUBIN,TOTAL 0.2 MG/DL (0.1-1.0)
[2021-07-30 04:54] LABS: CREATININE SERUM 0.49 MG/DL (0.60-1.30)
[2021-07-30 04:57] LABS: MAGNESIUM 2.1 MG/DL (1.6-2.4)
[2021-07-30] MEDS: inSUlin ASPART (NovoLOG) 1 UNIT/0.01 ML (CHARGE PER UNIT) SC SCH ×4 (05:18→23:46)
[2021-07-30] MEDS: methylPREDNISolone 40 MG/ML (Solu-MEDROL) VIAL IV SCH ×4 (05:18→23:38)
[2021-07-30] MEDS: CEFEPIME INJECTION 1,000 MG in NS (IVPB) 50 ML IV SCH ×4 (05:18→23:38)
[2021-07-30] MEDS: MIDAZOLAM DRIP PRE-MIX 100 ML IV SCH ×2 (05:22→17:44)
[2021-07-30] MEDS: POTASSIUM CL 10MEQ/50ML IVPB 50 ML IV SCH (05:29)
[2021-07-30] MEDS: KCL 20 MEQ TAB (K-DUR) PO SCH (05:29)
[2021-07-30] MEDS: MAGNESIUM 1 GM/100 ML IVPB 100 ML IV SCH (05:29)
[2021-07-30] MEDS: MONTELUKAST 10 MG (SINGULAIR) TAB PO SCH (08:59)
[2021-07-30] MEDS: LORATADINE (CLARITIN) 10 MG TAB PO SCH (08:59)
[2021-07-30] MEDS: SENNA W/DOCUSATE (SENOKOT S) TABLET PO SCH ×2 (08:59→20:41)
[2021-07-30] MEDS: SENNOSIDES 8.6 MG (SENOKOT) TAB PO SCH ×2 (08:59→20:41)
[2021-07-30] MEDS: PANTOPRAZOLE 40 MG (PROTONIX) VIAL IV SCH ×2 (09:00→20:40)
[2021-07-30] MEDS: ENOXAPARIN 40 MG/0.4 ML (LOVENOX) SYR SC SCH (09:00)
[2021-07-30] MEDS: DOCUSATE SODIUM 100 MG (COLACE) CAP PO SCH ×2 (09:13→20:34)
--- NOTE | 2021-07-30 10:55 | Tele-ICU Progress Note ---
Subjective Date Seen by a Provider: Jul 30, 2021 Time Seen by a Provider: 10:55 Sepsis Event Evaluation Height, Weight, BMI Height: 5'3.00" Weight: 139lbs. 0.0oz. 63.078613iu; 23.48 BMI Method:Stated Exam Exam Patient acknowledged, consented, and participated in this virtual visit which was conducted using real time audio/video Vital Signs Date Time Temp Pulse Resp B/P (MAP) Pulse Ox O2 Delivery O2 Flow Rate FiO2 07/30/21 10:26 118 142/81 07/30/21 10:19 118 20 92 45 07/30/21 10:00 36.5 105 20 130/71 (90) 92 Mechanical Ventilator 45.00 07/30/21 09:00 37.1 104 32 154/80 (104) 91 Mechanical Ventilator 45.00 07/30/21 08:00 37.2 85 18 148/75 (99) 90 Mechanical Ventilator 45.00 07/30/21 08:00 91 Mechanical Ventilator 45 07/30/21 07:10 146 20 94 45 07/30/21 07:00 90 07/30/21 07:00 37.3 85 20 175/87 (116) 90 Mechanical Ventilator 45.00 07/30/21 06:00 37.1 101 20 176/92 (120) 92 Mechanical Ventilator 45.00 07/30/21 05:22 56 20 139/66 07/30/21 05:00 126 20 93 07/30/21 05:00 37.0 61 20 151/74 (99) 93 Mechanical Ventilator 45.00 07/30/21 04:00 94 Mechanical Ventilator 45 07/30/21 04:00 37.0 64 22 148/73 (98) 93 Mechanical Ventilator 45.00 07/30/21 03:36 36.7 07/30/21 03:00 36.8 67 20 145/70 (95) 94 Mechanical Ventilator 45.00 07/30/21 02:00 36.7 63 17 140/68 (92) 93 Mechanical Ventilator 45.00 07/30/21 01:36 56 20 93 50 07/30/21 01:10 58 122/50 07/30/21 01:00 36.6 60 20 126/61 (82) 94 Mechanical Ventilator 45.00 07/30/21 01:00 60 07/30/21 00:17 36.2 07/30/21 00:07 Mechanical Ventilator 45.00 07/30/21 00:00 95 Mechanical Ventilator 50 07/30/21 00:00 36.4 58 19 122/50 (74) 94 Mechanical Ventilator 50.00 07/29/21 23:00 36.1 58 20 142/64 (90) 94 Mechanical Ventilator 50.00 07/29/21 22:37 36.2 07/29/21 22:00 35.6 62 16 133/61 (85) 95 Mechanical Ventilator 50.00 07/29/21 21:52 52 20 96 50 07/29/21 21:04 57 20 160/71 07/29/21 21:00 35.6 53 19 169/73 (105) 96 Mechanical Ventilator 50.00 07/29/21 20:00 96 Mechanical Ventilator 50 07/29/21 20:00 35.6 56 20 162/71 (101) 95 Mechanical Ventilator 50.00 07/29/21 19:47 35.8 07/29/21 19:00 35.6 57 19 152/69 (96) 94 Mechanical Ventilator 50.00 07/29/21 19:00 57 07/29/21 18:14 36.2 57 95 50 07/29/21 18:14 57 20 95 50 07/29/21 18:00 56 19 158/70 (99) 95 Mechanical Ventilator 50.00 07/29/21 17:00 60 20 144/64 (90) 94 Mechanical Ventilator 50.00 07/29/21 16:29 66 120/55 07/29/21 16:00 36.2 07/29/21 16:00 66 20 120/55 (76) 93 Mechanical Ventilator 50.00 07/29/21 15:52 35.9 07/29/21 15:42 94 Mechanical Ventilator 50 07/29/21 15:00 73 19 126/60 (82) 93 Mechanical Ventilator 50.00 07/29/21 14:12 66 20 93 50 07/29/21 14:00 68 20 141/68 (92) 93 Mechanical Ventilator 50.00 07/29/21 13:00 72 14 122/62 (82) 93 Mechanical Ventilator 50.00 07/29/21 12:43 83 07/29/21 12:00 36.1 07/29/21 12:00 70 16 112/56 (74) 94 Mechanical Ventilator 50.00 07/29/21 11:26 94 Mechanical Ventilator 50 07/29/21 11:00 62 19 111/53 (72) 94 Mechanical Ventilator 50.00 I & O 07/30/21 07:00 Intake Total 3705 ml Output Total 1175 ml Balance 2530 ml Height & Weight Height: 5'3.00" Weight: 139lbs. 0.0oz. 63.568297fw; 23.48 BMI Method:Stated General Appearance: No Apparent Distress, WD/WN, Chronically ill, Other (Sedated and intubated) HEENT: PERRL/EOMI, Normal ENT Inspection, Pharynx Normal, Moist Mucous Membranes Neck: Full Range of Motion, Normal Inspection, Non Tender Respiratory: Lungs Clear, Normal Breath Sounds Cardiovascular: No Edema, No Gallop, No JVD, No Murmur, Normal Peripheral Pulses, Tachycardia Capillary Refill: Less Than 3 Seconds Peripheral Pulses: 1+ Dorsalis Pedis (R), 1+ Left Dors-Pedis (L) (See free text) Gastrointestinal: soft, no organomegaly Extremity: Normal Capillary Refill, Normal Inspection, Normal Range of Motion, Non Tender, No Calf Tenderness, No Pedal Edema Neurologic/Psychiatric: Alert, Oriented x3, No Motor/Sensory Deficits, Normal Mood/Affect Skin: Normal Color, Warm/Dry Lymphatic: No Adenopathy Results Lab Laboratory Tests 07/29/21 03:45 07/30/21 04:15 Assessment/Plan Assessment/Plan (Tele-ICU Physician , Progress Note ) Available chart/ vitals / labs / Images reviewed Video assessment done using teleICU camera, rest of exam as per RN Discussed with RN , EXAM PER RN Events overnight : secreation in ETT Afebrile Pressors: , hemodynamically stable versed 10 , precedex 0.5 fentanyl 300 - RASS -1 VENT SETTINGS and ABG reviewed Not candidate for SBT today REVIEWED Cardiovascular Stability / Sedation Score / FI02/PEEP / ABG / CXR A/P Acute and chronic hypercarbic and hypoxic respiratory failure r - intubated , follow on vent - hopefully SBT tomorrow - off sedation was ? hr and bp - adjusting sedation AECOPD - still significant wheezing , PAP 40 - solumedrol nebs possible PNA -sputum for c/s and cont iv abx's ( 1/ Hypotension secondary to positive pressure ventilation as well as volume contraction -improved bloody secretion in NG 1/5 - PPI to bid - hn stable Lines : cetral line (Central Line Necessity Reviewed) [place]: + OG:+ Nutrition: start TF Analgesia: Anxiety/ delirium VTE Prophylaxis: rosanne proph Stress Ulcer Prophylaxis: ppi Glycemic Control: Plans in collaboration with bedside consultants and IM MDs. Discussed with RN to reach out if any questions or concerns A total of 33 minutes of critical care time was devoted to this patient today, required to treat and/or prevent further deterioration of critical care condition ( as above ) ZULEMA FUNK MD Jul 30, 2021 10:55
--- NOTE | 2021-07-30 13:26 | Progress Note ---
Subjective Subjective/Events-last exam Daughter at bedside this morning, discussed current status. She had severe hypertension and tachycardia when sedation was weaned this morning, but was able to be placed back on lower dose than yesterday. Objective Exam Last Set of Vital Signs Vital Signs Date Time Temp Pulse Resp B/P (MAP) Pulse Ox O2 Delivery O2 Flow Rate FiO2 07/30/21 13:00 97 07/30/21 12:09 91 Mechanical Ventilator 45 07/30/21 12:00 36.6 147/80 (102) 45.00 07/30/21 10:19 20 Capillary Refill : Less Than 3 Seconds I&O Intake and Output 07/30/21 00:00 Intake Total 3720 ml Output Total 1175 ml Balance 2545 ml Intake Oral 0 ml IV Total 2700 ml Tube Feeding 440 ml Other 580 ml Output Urine Total 1175 ml General: Other (intubated, opens eyes to touch) Lungs: Other (wheezing) Heart: Other (tachycardic) Extremities: Other (bilateral edema on dorsum of feet) Results/Procedures Lab Laboratory Tests 07/29/21 17:16: Glucometer 165H 07/29/21 23:21: Glucometer 177H 07/30/21 04:10: Blood Gas Puncture Site LEFT ART LINE, Blood Gas Patient Temperature 37.0, Arterial Blood pH 7.36L, Arterial Blood Partial Pressure CO2 44, Arterial Blood Partial Pressure O2 81, Arterial Blood HCO3 24, Arterial Blood Total CO2 25.6, Arterial Blood Oxygen Saturation 97, Arterial Blood Base Excess -0.5, Wes Test ART LINE, Blood Gas Ventilator Setting YES, Blood Gas Inspired Oxygen 45% 07/30/21 04:15: White Blood Count 15.5H, Red Blood Count 3.11L, Hemoglobin 8.2L, Hematocrit 26L, Mean Corpuscular Volume 82, Mean Corpuscular Hemoglobin 26, Mean Corpuscular Hemoglobin Concent 32, Red Cell Distribution Width 17.8H, Platelet Count 251, Mean Platelet Volume 11.4, Immature Granulocyte % (Auto) 4, Neutrophils (%) (Auto) 84H, Lymphocytes (%) (Auto) 7L, Monocytes (%) (Auto) 5, Eosinophils (%) (Auto) 0, Basophils (%) (Auto) 0, Neutrophils # (Auto) 13.0H, Lymphocytes # (Auto) 1.2, Monocytes # (Auto) 0.8, Eosinophils # (Auto) 0.0, Basophils # (Auto) 0.0, Immature Granulocyte # (Auto) 0.6H, Sodium Level 141, Potassium Level 4.1, Chloride Level 112H, Carbon Dioxide Level 22, Anion Gap 7, Blood Urea Nitrogen 25H, Creatinine 0.49L, Estimat Glomerular Filtration Rate 128, BUN/Creatinine Ratio 51, Glucose Level 194H, Calcium Level 8.0L, Corrected Calcium 9.0, Magnesium Level 2.1, Total Bilirubin 0.2, Aspartate Amino Transf (AST/SGOT) 10, Alanine Aminotransferase (ALT/SGPT) 14, Alkaline Phosphatase 37L, Total Protein 4.8L, Albumin 2.7L, Triglycerides Level 263H 07/30/21 11:22: Glucometer 167H Microbiology 07/27/21 Gram Stain - Final, Resulted 07/27/21 Sputum Culture - Preliminary, Resulted Usual upper respiratory porfirio 07/24/21 Blood Culture - Final, Complete No growth 07/24/21 Urine Culture - Final, Complete Gram Pos Mixed Bacterial Porfirio Assessment/Plan Assessment/Plan (1) COPD with acute exacerbation Status: Acute Assessment & Plan: Requiring intubation, currently remains intubated, appreciate Nat ICU assistance. Solumedrol 80 mg q6. Started on cefepime on 07/27. (2) Acute and chronic respiratory failure Status: Acute (3) Diabetes Status: Chronic Assessment & Plan: Sliding scale insulin per ICU protocol. Qualifiers: Qualified Codes: E11.65 - Type 2 diabetes mellitus with hyperglycemia (4) Lactic acid acidosis Status: Resolved Assessment & Plan: Suspect secondary to COPD exacerbation and metformin, resolved. (5) Hypertension Status: Chronic Assessment & Plan: Initially hypotensive, requiring norepinephrine initially, maintaining BP at this time. (6) HX: breast cancer Status: Chronic (7) Hyperlipemia Status: Chronic (8) DVT prophylaxis Status: Acute Assessment & Plan: Enoxaparin LEATHA JUSTIN MD Jul 30, 2021 13:26
[2021-07-30] MEDS: NOREPINEPHRINE 8 MG/250 ML 250 ML IV SCH (18:22)
[2021-07-30] MEDS: morphine INJ 4 MG/ML 1 ML (VIAL/SYRINGE) IV PRN (22:15)
[2021-07-31] VITALS (30 sets, daily range): BP systolic 151–197; BP diastolic 65–97
[2021-07-31] MEDS: RT-ALBUTEROL/IPRATROPIUM 3 ML (DUONEB) VIAL INH SCH ×6 (02:00→22:22)
[2021-07-31] MEDS: fentaNYL DRIP PRE-MIX 250 ML IV SCH ×7 (02:58→20:59)
[2021-07-31] MEDS: MIDAZOLAM DRIP PRE-MIX 100 ML IV SCH ×3 (03:49→22:24)
[2021-07-31 04:13] LABS: BASOPHILS % (AUTO) 0 % (0-10); EOSINOPHILS % (AUTO) 0 % (0-10); HEMATOCRIT 25 % (35-52); HEMOGLOBIN 7.8 g/dL (11.5-16.0); LYMPHOCYTES # (AUTO) 1.2 10^3/uL (1.0-4.0); LYMPHOCYTES % (AUTO) 7 % (12-44); MEAN CORPUSCULAR HEMOGLOBIN 26 pg (25-34); MEAN CORPUSCULAR HGB CONC 32 g/dL (32-36); MEAN CORPUSCULAR VOLUME 83 fL (80-99); MEAN PLATELET VOLUME 11.4 fL (9.0-12.2); MONOCYTES # (AUTO) 0.9 10^3/uL (0.0-1.0); MONOCYTES % (AUTO) 6 % (0-12); NEUTROPHILS # (AUTO) 13.2 10^3/uL (1.8-7.8); NEUTROPHILS % (AUTO) 82 % (42-75); PLATELET COUNT 217 10^3/uL (130-400); WHITE BLOOD COUNT 16.1 10^3/uL (4.3-11.0)
[2021-07-31 04:14] LABS: ABG BASE EXCESS 2.6 MMOL/L (-2.5-2.5); ABG OXYGEN SATURATION 94 % (94-100); ABG PCO2 44 MMHG (35-45); ABG PO2 67 MMHG (79-93); ABG TCO2 28.5 MMOL/L (21.0-31.0)
[2021-07-31 04:21] LABS: ALLENS TEST ART LINE; INSPIRED O2 45%; PATIENT TEMP 36.5; VENTILATOR YES
[2021-07-31 04:28] LABS: ALBUMIN 2.7 GM/DL (3.2-4.5)
[2021-07-31 04:29] LABS: POTASSIUM 3.9 MMOL/L (3.6-5.0)
[2021-07-31 04:30] LABS: CALCIUM 7.9 MG/DL (8.5-10.1)
[2021-07-31 04:31] LABS: TOTAL PROTEIN 4.9 GM/DL (6.4-8.2)
[2021-07-31 04:33] LABS: BILIRUBIN,TOTAL 0.2 MG/DL (0.1-1.0)
[2021-07-31 04:35] LABS: CREATININE SERUM 0.52 MG/DL (0.60-1.30)
[2021-07-31 04:37] LABS: MAGNESIUM 2.1 MG/DL (1.6-2.4)
[2021-07-31] MEDS: POTASSIUM CL 10MEQ/50ML IVPB 50 ML IV SCH (04:59)
[2021-07-31] MEDS: KCL 20 MEQ TAB (K-DUR) PO SCH (04:59)
[2021-07-31] MEDS: MAGNESIUM 1 GM/100 ML IVPB 100 ML IV SCH (04:59)
[2021-07-31] MEDS: inSUlin ASPART (NovoLOG) 1 UNIT/0.01 ML (CHARGE PER UNIT) SC SCH ×3 (05:06→17:00)
[2021-07-31] MEDS: methylPREDNISolone 40 MG/ML (Solu-MEDROL) VIAL IV SCH ×3 (05:06→17:01)
[2021-07-31] MEDS: CEFEPIME INJECTION 1,000 MG in NS (IVPB) 50 ML IV SCH ×3 (05:06→17:00)
[2021-07-31] MEDS: DexMEDEtomidine 250 ML DRIP 250 ML IV SCH ×2 (05:10→15:02)
[2021-07-31] MEDS: PROPOFOL DRIP (ICU) 100 ML IV SCH ×2 (06:08→19:32)
--- NOTE | 2021-07-31 09:02 | Tele-ICU Progress Note ---
Progress Note video rounds completed 60 y/o female admitted with hypoxemic respiratory failure and COPD exacerbation Intubated, vent: 20/450//45%/5 Minimal sedation Pe: comfortable ABG borderline Consider SBT this am Focused Exam Height, Weight, BMI Height: 5'3.00" Weight: 139lbs. 0.0oz. 63.033409zj; 23.48 BMI Method:Stated Laboratory Tests 07/31/21 03:00 Results Labs Labs Laboratory Tests 07/30/21 11:22: Glucometer 167H 07/30/21 17:51: Glucometer 191H 07/30/21 23:44: Glucometer 206H 07/31/21 03:00: White Blood Count 16.1H, Red Blood Count 2.97L, Hemoglobin 7.8L, Hematocrit 25L, Mean Corpuscular Volume 83, Mean Corpuscular Hemoglobin 26, Mean Corpuscular Hemoglobin Concent 32, Red Cell Distribution Width 17.7H, Platelet Count 217, Mean Platelet Volume 11.4, Immature Granulocyte % (Auto) 5, Neutrophils (%) (Auto) 82H, Lymphocytes (%) (Auto) 7L, Monocytes (%) (Auto) 6, Eosinophils (%) (Auto) 0, Basophils (%) (Auto) 0, Neutrophils # (Auto) 13.2H, Lymphocytes # (Auto) 1.2, Monocytes # (Auto) 0.9, Eosinophils # (Auto) 0.0, Basophils # (Auto) 0.0, Immature Granulocyte # (Auto) 0.8H, Blood Gas Puncture Site LEFT RADIAL, Blood Gas Patient Temperature 36.5, Arterial Blood pH 7.40, Arterial Blood Partial Pressure CO2 44, Arterial Blood Partial Pressure O2 67L, Arterial Blood HCO3 27, Arterial Blood Total CO2 28.5, Arterial Blood Oxygen Saturation 94, Arterial Blood Base Excess 2.6H, Wes Test ART LINE, Blood Gas Ventilator Setting YES, Blood Gas Inspired Oxygen 45%, Sodium Level 142, Potassium Level 3.9, Chloride Level 109H, Carbon Dioxide Level 24, Anion Gap 9, Blood Urea Nitrogen 22H, Creatinine 0.52L, Estimat Glomerular Filtration Rate 120, BUN/Creatinine Ratio 42, Glucose Level 241H, Calcium Level 7.9L, Corrected Calcium 8.9, Magnesium Level 2.1, Total Bilirubin 0.2, Aspartate Amino Transf (AST/SGOT) 9, Alanine Aminotransferase (ALT/SGPT) 19, Alkaline Phosphatase 43, Total Protein 4.9L, Albumin 2.7L Microbiology 07/27/21 Gram Stain - Final, Complete 07/27/21 Sputum Culture - Final, Complete Usual upper respiratory porfirio 07/24/21 Blood Culture - Final, Complete No growth 07/24/21 Urine Culture - Final, Complete Gram Pos Mixed Bacterial Porfirio CLAUS BRONSON MD Jul 31, 2021 09:02
[2021-07-31] MEDS: ENOXAPARIN 40 MG/0.4 ML (LOVENOX) SYR SC SCH (09:29)
[2021-07-31] MEDS: DOCUSATE SODIUM 100 MG (COLACE) CAP PO SCH ×3 (09:29→20:58)
[2021-07-31] MEDS: SENNA W/DOCUSATE (SENOKOT S) TABLET PO SCH ×2 (09:30→20:58)
[2021-07-31] MEDS: MONTELUKAST 10 MG (SINGULAIR) TAB PO SCH (09:30)
[2021-07-31] MEDS: LORATADINE (CLARITIN) 10 MG TAB PO SCH (09:30)
[2021-07-31] MEDS: PANTOPRAZOLE 40 MG (PROTONIX) VIAL IV SCH ×2 (09:30→20:58)
[2021-07-31] MEDS: SENNOSIDES 8.6 MG (SENOKOT) TAB PO SCH ×2 (09:30→20:58)
--- NOTE | 2021-07-31 09:43 | Progress Note - Hospitalist ---
Subjective HPI/CC On Admission Date Seen by Provider: Jul 31, 2021 Time Seen by Provider: 11:00 CC: Respiratory failure HPI: This is a 60yoWF w/h/o COPD on home O2 13/02, current smoker, DM on Metformin, HTN, anxiety and depression who presents to the [facility] from ER with dyspnea and was found to have acute on chronic respiratory failure and hypercapnia and hypoxemia on ABG meeting criteria for biPAP but moved to ICU when respiratory failure noted and more elevated lactic acidosis likely due to Metformin and hypoxemia and work of breathing. Patient denies pain. Lives alone in trailer beside her daughter. Updated EICU on need to move to ICU. Subjective/Events-last exam Patient still on vent Updated daughter at bedside Patient is awake Checked meds and labs RN has no concerns severe COPD will preclude a rapid wean Objective Exam Vital Signs Vital Signs Date Time Temp Pulse Resp B/P (MAP) Pulse Ox O2 Delivery O2 Flow Rate FiO2 07/31/21 18:00 37.1 56 19 166/73 (104) 92 Mechanical Ventilator 45.00 07/31/21 16:10 45 Capillary Refill : Less Than 3 Seconds General Appearance: No Apparent Distress, WD/WN, Chronically ill, Thin Respiratory: Decreased Breath Sounds Cardiovascular: Regular Rate, Rhythm Results/Procedures Lab Laboratory Tests 07/31/21 03:00 Patient resulted labs reviewed. Assessment/Plan Assessment and Plan Assess & Plan/Chief Complaint Assessment: Acute on chronic respiratory failure requiring ventilator AECOPD Lactic acidosis due to Metformin and hypoxemia and respiratory fatigue no evidence of sepsis or bacterial source negative PCT and negative CXR Current smoker Chronic hypoxemia uses O2 2-3 L/min chronically DM on Metformin HTN Osteoporosis GERD Depression Anxiety placing on Precedex Breast cancer hx Frail status Chronic disability Plan: Move to ICU IVF EICU consult Lovenox biPAP Precedex High risk for intubation 07/25/2021: Ventilator management appreciated IV steroids Follow chest x-ray 07/31/2021: Wean protocol Critical Care Ventilator Management Diagnosis/Problems Diagnosis/Problems (1) Acute and chronic respiratory failure Status: Acute (2) Lactic acid acidosis Status: Resolved Resolution Date/Time: 07/25/21 @ 17:19 (3) Smoker (4) HX: breast cancer Status: Chronic (5) Hypertension Status: Chronic (6) Hyperlipemia Status: Chronic (7) Diabetes Status: Chronic Qualifiers: Diabetes mellitus type: type 2 Diabetes mellitus intermediate card tender insulin use: without intermediate card tender use Diabetes mellitus complication status: with hyperglycemia Qualified Codes: E11.65 - Type 2 diabetes mellitus with hyperglycemia (8) Adverse effect of metformin (9) Hypercapnia Status: Acute (10) Hypoxemia Status: Acute (11) Oxygen dependent Status: Chronic (12) COPD with acute exacerbation Status: Acute (13) Hypoxia Status: Acute (14) Anxiety Status: Acute KANG HUMPHREY DO Jul 31, 2021 09:43
[2021-07-31] MEDS: NOREPINEPHRINE 8 MG/250 ML 250 ML IV SCH (14:07)
[2021-07-31] MEDS: hydrALAZINE (APESOLINE) 20 MG/ML VIAL IV PRN ×2 (14:10→19:56)
--- NOTE | 2021-07-31 19:41 | Progress Note ---
Standard Progress Note Progress Notes/Assess & Plan Date Seen by a Provider: Jul 31, 2021 Time Seen by a Provider: 19:40 Progress/Assessment & Plan called for elevated SBP 170, will give IV hydralazine, has high gastric residuals, will give Reglan, QTc is 440, will get CXR and if congested, will give IV Trevor Nguyen MD Final Diagnosis COPD, ? CHF CLAUS NGUYEN MD Jul 31, 2021 19:41
[2021-07-31] MEDS ORDERED: METOCLOPRAMIDE INJ 10 MG/2 ML (REGLAN) IVP ONE (19:45)
--- NOTE | 2021-07-31 20:05 | Diagnostic Imaging Report ---
INDICATION: CHF, intubated. COMPARISON: 07/28/2021. EXAMINATION: Single view of the chest. FINDINGS: Cardiac enlargement without overt pulmonary edema. There is no pneumothorax. Trace pleural effusions are seen in the lung bases. There is no pneumothorax. Support devices appear to be in stable position. IMPRESSION: 1. No pulmonary edema identified. 2. Stable support devices. 3. Trace bilateral pleural effusions. Dictated by: Dictated on workstation # [id number]
[2021-07-31] MEDS ORDERED: METOCLOPRAMIDE INJ 10 MG/2 ML (REGLAN) ONE (20:53)
--- NOTE | 2021-07-31 23:12 | Tele-ICU Progress Note ---
Subjective Date Seen by a Provider: Jul 31, 2021 Time Seen by a Provider: 23:10 Subjective/Events-last exam called by RN due to increased NG drainage which is now foul smelling, I am concerned about bowel infarct, will get CT abd and Lactate Abd is tympanitic Frandy Nguyen mD Sepsis Event Evaluation Height, Weight, BMI Height: 5'3.00" Weight: 139lbs. 0.0oz. 63.690179fo; 23.48 BMI Method:Stated Exam Exam Patient acknowledged, consented, and participated in this virtual visit which was conducted using real time audio/video Vital Signs Date Time Temp Pulse Resp B/P (MAP) Pulse Ox O2 Delivery O2 Flow Rate FiO2 07/31/21 22:24 60 20 180/79 07/31/21 22:23 122 20 94 45 07/31/21 20:03 Mechanical Ventilator 45 07/31/21 19:00 60 07/31/21 19:00 37.1 Mechanical Ventilator 45.00 07/31/21 18:49 56 20 93 45 07/31/21 18:00 37.1 56 19 166/73 (104) 92 Mechanical Ventilator 45.00 07/31/21 17:00 37.0 62 19 151/65 (93) 91 Mechanical Ventilator 45.00 07/31/21 16:10 Mechanical Ventilator 45 07/31/21 16:00 37.2 61 19 155/68 (97) 92 Mechanical Ventilator 45.00 07/31/21 15:25 57 20 92 45 07/31/21 15:02 67 163/72 07/31/21 15:00 37.3 58 20 159/70 (99) 92 Mechanical Ventilator 45.00 07/31/21 14:00 36.7 67 26 174/80 (111) 93 Mechanical Ventilator 45.00 07/31/21 13:20 129 20 213/111 07/31/21 13:00 79 07/31/21 13:00 36.5 76 26 166/76 (106) 93 Mechanical Ventilator 45.00 07/31/21 12:14 35.9 07/31/21 12:00 36.5 80 22 155/70 (98) 94 Mechanical Ventilator 45.00 07/31/21 12:00 Mechanical Ventilator 45 07/31/21 11:00 35.6 93 22 164/77 (106) 95 Mechanical Ventilator 45.00 07/31/21 10:56 85 20 96 45 07/31/21 10:00 36.3 101 19 183/85 (117) 96 Mechanical Ventilator 45.00 07/31/21 09:00 36.7 88 14 180/82 (114) 94 Mechanical Ventilator 45.00 07/31/21 08:35 36.3 07/31/21 08:30 Mechanical Ventilator 45 07/31/21 08:00 36.5 70 20 180/79 (112) 93 Mechanical Ventilator 45.00 07/31/21 07:00 36.4 67 20 163/72 (102) 93 Mechanical Ventilator 45.00 07/31/21 07:00 70 07/31/21 06:31 67 20 97 45 07/31/21 06:00 36.2 64 19 167/74 (105) 93 Mechanical Ventilator 45.00 07/31/21 05:10 105 164/77 07/31/21 05:00 36.4 71 20 160/70 (100) 94 Mechanical Ventilator 45.00 07/31/21 05:00 86 20 92 07/31/21 04:00 36.6 66 20 167/73 (104) 93 Mechanical Ventilator 45.00 07/31/21 04:00 93 Mechanical Ventilator 45 07/31/21 03:49 105 20 164/77 07/31/21 03:00 36.3 68 19 162/71 (101) 91 Mechanical Ventilator 45.00 07/31/21 02:01 105 20 96 45 07/31/21 02:00 36.5 64 19 157/70 (99) 94 Mechanical Ventilator 45.00 07/31/21 01:00 36.4 58 19 174/76 (108) 94 Mechanical Ventilator 45.00 07/31/21 01:00 61 07/31/21 00:00 36.4 74 19 156/74 (101) 93 Mechanical Ventilator 45.00 07/31/21 00:00 92 Mechanical Ventilator 45 I & O 07/31/21 07:00 Intake Total 2467 ml Output Total 2100 ml Balance 367 ml Height & Weight Height: 5'3.00" Weight: 139lbs. 0.0oz. 63.687877ad; 23.48 BMI Method:Stated General Appearance: No Apparent Distress, WD/WN, Chronically ill, Thin HEENT: PERRL/EOMI, Normal ENT Inspection, Pharynx Normal, Moist Mucous Membranes Neck: Full Range of Motion, Normal Inspection, Non Tender Respiratory: Decreased Breath Sounds Cardiovascular: Regular Rate, Rhythm Capillary Refill: Less Than 3 Seconds Peripheral Pulses: 1+ Dorsalis Pedis (R), 1+ Left Dors-Pedis (L) (See free della t) Gastrointestinal: soft, no organomegaly Extremity: Normal Capillary Refill, Normal Inspection, Normal Range of Motion, Non Tender, No Calf Tenderness, No Pedal Edema Neurologic/Psychiatric: Alert, Oriented x3, No Motor/Sensory Deficits, Normal Mood/Affect Skin: Normal Color, Warm/Dry Lymphatic: No Adenopathy Results Lab Laboratory Tests 07/30/21 04:15 07/31/21 03:00 Assessment/Plan Assessment/Plan CT abd, lactated, may need surgery consult Frandy Nguyen MD Critical Care: Critically Ill Patient CLAUS NGUYEN MD Jul 31, 2021 23:12
[2021-07-31] MEDS: LORazepam INJ 2 MG/ML (ATIVAN) VIAL IVP PRN (23:32)
[2021-08-01] VITALS (29 sets, daily range): BP systolic 112–234; BP diastolic 55–113
[2021-08-01] MEDS: fentaNYL DRIP PRE-MIX 250 ML IV SCH ×5 (00:49→21:23)
[2021-08-01] MEDS: DexMEDEtomidine 250 ML DRIP 250 ML IV SCH ×3 (00:49→23:56)
[2021-08-01] MEDS: inSUlin ASPART (NovoLOG) 1 UNIT/0.01 ML (CHARGE PER UNIT) SC SCH ×4 (00:50→17:46)
[2021-08-01] MEDS: methylPREDNISolone 40 MG/ML (Solu-MEDROL) VIAL IV SCH ×5 (00:50→23:23)
[2021-08-01] MEDS: CEFEPIME INJECTION 1,000 MG in NS (IVPB) 50 ML IV SCH ×2 (00:50→05:43)
[2021-08-01] MEDS: RT-ALBUTEROL/IPRATROPIUM 3 ML (DUONEB) VIAL INH SCH ×5 (02:07→18:59)
[2021-08-01] MEDS ORDERED: HOLD METFORMIN - RECEIVED CONTRAST 20 ML VIAL IV SCH (02:15)
[2021-08-01] MEDS ORDERED: IOHEXOL 350 MG/ML 100 ML (OMNIPAQUE 350) VIAL IV ONE (02:15)
[2021-08-01] MEDS ORDERED: NS 100 ML (IVPB) BAG IV ONE (02:15)
[2021-08-01 04:32] LABS: ABG BASE EXCESS 5.4 MMOL/L (-2.5-2.5); ABG OXYGEN SATURATION 98 % (94-100); ABG PCO2 45 MMHG (35-45); ABG PH 7.43 (7.37-7.43); ABG PO2 96 MMHG (79-93); BASOPHILS % (AUTO) 0 % (0-10); EOSINOPHILS % (AUTO) 0 % (0-10); HEMATOCRIT 25 % (35-52); HEMOGLOBIN 7.7 g/dL (11.5-16.0); LYMPHOCYTES # (AUTO) 1.5 10^3/uL (1.0-4.0); LYMPHOCYTES % (AUTO) 8 % (12-44); MEAN CORPUSCULAR HEMOGLOBIN 26 pg (25-34); MEAN CORPUSCULAR HGB CONC 31 g/dL (32-36); MEAN CORPUSCULAR VOLUME 82 fL (80-99); MEAN PLATELET VOLUME 10.9 fL (9.0-12.2); MONOCYTES # (AUTO) 1.3 10^3/uL (0.0-1.0); MONOCYTES % (AUTO) 7 % (0-12); NEUTROPHILS # (AUTO) 15.3 10^3/uL (1.8-7.8); NEUTROPHILS % (AUTO) 80 % (42-75); PLATELET COUNT 223 10^3/uL (130-400)
[2021-08-01 04:36] LABS: ALLENS TEST YES-POS; INSPIRED O2 45%; VENTILATOR YES
[2021-08-01 04:45] LABS: ALBUMIN 2.6 GM/DL (3.2-4.5)
[2021-08-01 04:46] LABS: POTASSIUM 3.9 MMOL/L (3.6-5.0)
[2021-08-01 04:47] LABS: CALCIUM 7.8 MG/DL (8.5-10.1)
[2021-08-01 04:48] LABS: TOTAL PROTEIN 4.6 GM/DL (6.4-8.2)
[2021-08-01 04:50] LABS: BILIRUBIN,TOTAL 0.2 MG/DL (0.1-1.0)
[2021-08-01 04:52] LABS: CREATININE SERUM 0.47 MG/DL (0.60-1.30)
[2021-08-01 04:54] LABS: MAGNESIUM 1.9 MG/DL (1.6-2.4)
[2021-08-01] MEDS: POTASSIUM CL 10MEQ/50ML IVPB 50 ML IV SCH (04:54)
[2021-08-01] MEDS: KCL 20 MEQ TAB (K-DUR) PO SCH (04:55)
[2021-08-01 04:56] LABS: BAND NEUTROPHILS 4 %; LYMPHOCYTES % (MANUAL) 7 %; MONOCYTES % (MANUAL) 3 %; NEUTROPHILS % (MANUAL) 86 %; RBC MORPH NORMAL
[2021-08-01] MEDS: MAGNESIUM 1 GM/100 ML IVPB 100 ML IV SCH (04:56)
--- NOTE | 2021-08-01 07:10 | Diagnostic Imaging Report ---
PROCEDURE: CT abdomen and pelvis with and without contrast. TECHNIQUE: Precontrast acquisitions were acquired through the abdomen and pelvis. Multiple contiguous axial images were obtained through the abdomen and pelvis after the administration of intravenous contrast. Auto Exposure Controls were utilized during the CT exam to meet ALARA standards for radiation dose reduction. INDICATION: Abdominal pain, ischemic bowel No prior studies available for comparison. There is hyperdense material within the gallbladder. This may be related to sludge. There is also suggestion of some pericholecystic fluid and the possibility of acute cholecystitis should be considered although the gallbladder wall is not thickened. Even so, ultrasound would be recommended for further study. The liver, spleen, pancreas, kidneys, adrenals, aorta and inferior vena cava show no sign of an acute abnormality. There is a nasogastric tube in the stomach with the tip in the region of the gastric body. The stomach is partially filled with fluid and difficult to assess. There is a small amount of fluid about the spleen and the images through the pelvis show a small amount of free fluid low in the pelvis as well. This appearance is nonspecific. The urinary bladder is decompressed by a Ohara catheter. The uterus is generally unremarkable. The appendix was not well-visualized but there are no indirect signs of acute appendicitis. There is some gas in both the large and small bowel in a nonspecific fashion. There is no sign of bowel obstruction. There is diverticulosis of the sigmoid colon but there is no sign of acute diverticulitis. There is diffusely increased density throughout the subcutaneous fat of the abdomen and pelvis. This appearance does suggest anasarca. The images through the lung bases also show mild bibasilar atelectasis/infiltrate and small bilateral pleural effusions. The bone windows are unremarkable for a fracture or for a destructive lesion. IMPRESSION: 1. There is hyperdense material within the gallbladder as well as pericholecystic fluid. However there is no evidence for cholelithiasis or acute cholecystitis. Even so, ultrasound would be recommended for further study. 2. There is a small amount of nonspecific free fluid about the spleen and low in the pelvis. There is no acute abnormality of the intra-abdominal or intrapelvic contents otherwise. 3. The diffuse increased density throughout the subcutaneous fat is most likely due to anasarca. 3. There is bibasilar pneumonia/atelectasis and bilateral pleural effusions. I agree with the [facility] interpretation of this exam. Dictated by: Dictated on workstation # [id number]
[2021-08-01] MEDS: ENOXAPARIN 40 MG/0.4 ML (LOVENOX) SYR SC SCH (08:23)
[2021-08-01] MEDS: MONTELUKAST 10 MG (SINGULAIR) TAB PO SCH (08:23)
[2021-08-01] MEDS: DOCUSATE SODIUM 100 MG (COLACE) CAP PO SCH ×2 (08:23→20:51)
[2021-08-01] MEDS: LORATADINE (CLARITIN) 10 MG TAB PO SCH (08:23)
[2021-08-01] MEDS: SENNA W/DOCUSATE (SENOKOT S) TABLET PO SCH ×2 (08:23→20:51)
[2021-08-01] MEDS: PANTOPRAZOLE 40 MG (PROTONIX) VIAL IV SCH ×2 (08:23→20:50)
[2021-08-01] MEDS: SENNOSIDES 8.6 MG (SENOKOT) TAB PO SCH ×2 (08:23→20:51)
--- NOTE | 2021-08-01 08:35 | Progress Note - Hospitalist ---
Subjective HPI/CC On Admission Date Seen by Provider: Aug 01, 2021 Time Seen by Provider: 12:00 CC: Respiratory failure HPI: This is a 60yoWF w/h/o COPD on home O2 13/02, current smoker, DM on Metformin, HTN, anxiety and depression who presents to the [facility] from ER with dyspnea and was found to have acute on chronic respiratory failure and hypercapnia and hypoxemia on ABG meeting criteria for biPAP but moved to ICU when respiratory failure noted and more elevated lactic acidosis likely due to Metformin and hypoxemia and work of breathing. Patient denies pain. Lives alone in trailer beside her daughter. Updated EICU on need to move to ICU. Subjective/Events-last exam Patient will be started on Seroquel Needs a little bit of something to calm her down and Precedex and Ativan are doing much Updated daughter at front elevator operator of ICU Patient will be difficult to extubate Review of Systems General: Fatigue, Malaise Focused Exam Lactate Level 07/31/21 23:23: Lactic Acid Level 0.46L Objective Exam Vital Signs Vital Signs Date Time Temp Pulse Resp B/P (MAP) Pulse Ox O2 Delivery O2 Flow Rate FiO2 08/02/21 04:34 Mechanical Ventilator 50.00 08/02/21 04:34 36.3 08/02/21 04:00 66 20 142/66 (91) 94 08/02/21 02:26 55 Capillary Refill : Less Than 3 Seconds General Appearance: WD/WN, Anxious, Chronically ill Respiratory: No Accessory Muscle Use, No Respiratory Distress, Decreased Breath Sounds Cardiovascular: Regular Rate, Rhythm Results/Procedures Lab Patient resulted labs reviewed. Assessment/Plan Assessment and Plan Assess & Plan/Chief Complaint Assessment: Acute on chronic respiratory failure requiring ventilator AECOPD Lactic acidosis due to Metformin and hypoxemia and respiratory fatigue no evidence of sepsis or bacterial source negative PCT and negative CXR Current smoker Chronic hypoxemia uses O2 2-3 L/min chronically DM on Metformin HTN Osteoporosis GERD Depression Anxiety placing on Precedex Breast cancer hx Frail status Chronic disability Plan: Move to ICU IVF EICU consult Lovenox biPAP Precedex High risk for intubation 07/25/2021: Ventilator management appreciated IV steroids Follow chest x-ray 07/31/2021: Wean protocol 08/01/2021: Supportive care Wean protocol Critical Care Critically Ill Patient Diagnosis/Problems Diagnosis/Problems (1) Acute and chronic respiratory failure Status: Acute (2) Lactic acid acidosis Status: Resolved Resolution Date/Time: 07/25/21 @ 17:19 (3) Smoker (4) HX: breast cancer Status: Chronic (5) Hypertension Status: Chronic (6) Hyperlipemia Status: Chronic (7) Diabetes Status: Chronic Qualifiers: Diabetes mellitus type: type 2 Diabetes mellitus tank terminal gauger insulin use: without tank terminal gauger use Diabetes mellitus complication status: with hyperglycemia Qualified Codes: E11.65 - Type 2 diabetes mellitus with hyperglycemia (8) Adverse effect of metformin (9) Hypercapnia Status: Acute (10) Hypoxemia Status: Acute (11) Oxygen dependent Status: Chronic (12) COPD with acute exacerbation Status: Acute (13) Hypoxia Status: Acute (14) Anxiety Status: Acute KANG HUMPHREY DO Aug 01, 2021 08:35
[2021-08-01] MEDS: LORazepam INJ 2 MG/ML (ATIVAN) VIAL IVP PRN ×3 (08:59→21:21)
[2021-08-01] MEDS: morphine INJ 4 MG/ML 1 ML (VIAL/SYRINGE) IV PRN (09:46)
--- NOTE | 2021-08-01 10:00 | Tele-ICU Progress Note ---
Subjective Date Seen by a Provider: Aug 01, 2021 Time Seen by a Provider: 08:00 Subjective/Events-last exam This virtual visit was conducted using real time audio/video. Thank you for asking us to see this patient for respiratory insufficiency due to AECOPD, B pna. Recent events: CTA unremarkable, TF on hold. PE: Sedated on vent. VSS. O2 sat 92-93% on 40%/+5. HEENT: No obvious masses, adenopathy or JVD. Chest: clear to auscultation. Diminished. CV: RRR S1 S2 No murmur or added sounds. Abd: Non-tender. Bowel sounds Y. : Unremarkable. Ohara Y. THIRD RIGGER/psychiatric: Grossly intact. No obvious focal findings. Extremities: 1-2+ edema. Capillary refill < 3 seconds. Skin: unremarkable. Results: Elevated BUN 19, WCC 19K. Decreased HB 7.7, Alb 2.6. B.43/45/96. CXR: central congestion, hyperinflated. Available chart/ vitals / labs / images reviewed. Video assessment done using teleICU camera, rest of exam as per RN. A/P: Respiratory insufficiency: Continue present management with vent, attempt to wean FiO2 Monitor for increasing oxygenation needs. Critical Care: critically ill patient. Cont. Duonebs. Would decrease Medrol. Cont. Prec., Fent., Versed, Singulair, PPI, SSI. Consider diuresis. Discussed with DILEEP Jarrett. Asked RN to reach out to eICU if any questions or concerns later. Time spent with patient/coordination of care with other health professionals (mins): 20 Sepsis Event Evaluation Height, Weight, BMI Height: 5'3.00" Weight: 139lbs. 0.0oz. 63.245976lb; 23.48 BMI Method:Stated Focused Exam Lactate Level 07/31/21 23:23: Lactic Acid Level 0.46L Exam Exam Patient acknowledged, consented, and participated in this virtual visit which was conducted using real time audio/video Vital Signs Date Time Temp Pulse Resp B/P (MAP) Pulse Ox O2 Delivery O2 Flow Rate FiO2 08/01/21 09:00 124 23 234/110 (151) 92 Mechanical Ventilator 40.00 08/01/21 09:00 36.8 08/01/21 08:15 Mechanical Ventilator 40.00 08/01/21 07:34 63 20 95 45 08/01/21 07:00 54 20 167/80 (109) 95 Mechanical Ventilator 45.00 08/01/21 07:00 54 08/01/21 06:00 55 19 134/64 (87) 95 Mechanical Ventilator 45.00 08/01/21 05:52 55 22 95 08/01/21 05:00 61 20 152/74 (100) 95 Mechanical Ventilator 45.00 08/01/21 04:23 94 Mechanical Ventilator 45 08/01/21 04:00 58 20 146/73 (97) 94 Mechanical Ventilator 45.00 08/01/21 03:00 59 19 145/73 (97) 93 Mechanical Ventilator 45.00 08/01/21 02:50 37.0 Mechanical Ventilator 45.00 08/01/21 02:07 53 20 92 45 08/01/21 02:00 53 20 113/55 (74) 92 Mechanical Ventilator 45.00 08/01/21 01:00 60 19 129/68 (88) 92 Mechanical Ventilator 45.00 08/01/21 01:00 53 08/01/21 00:49 63 127/66 08/01/21 00:39 63 20 96 45 08/01/21 00:00 68 19 112/58 (76) 92 Mechanical Ventilator 45.00 08/01/21 00:00 91 Mechanical Ventilator 45 07/31/21 23:00 36.8 Mechanical Ventilator 45.00 07/31/21 23:00 84 19 157/79 (105) 94 Mechanical Ventilator 45.00 07/31/21 22:24 60 20 180/79 07/31/21 22:23 122 20 94 45 07/31/21 22:00 123 18 197/97 (130) 97 Mechanical Ventilator 45.00 07/31/21 21:00 36.0 78 17 157/73 (101) 96 Mechanical Ventilator 45.00 07/31/21 20:03 Mechanical Ventilator 45 07/31/21 20:00 37.1 60 20 159/75 (103) 94 Mechanical Ventilator 45.00 07/31/21 19:00 60 07/31/21 19:00 37.1 Mechanical Ventilator 45.00 07/31/21 19:00 37.1 57 19 172/76 (108) 93 Mechanical Ventilator 45.00 07/31/21 18:49 56 20 93 45 07/31/21 18:00 37.1 56 19 166/73 (104) 92 Mechanical Ventilator 45.00 07/31/21 17:00 37.0 62 19 151/65 (93) 91 Mechanical Ventilator 45.00 07/31/21 16:10 Mechanical Ventilator 45 07/31/21 16:00 37.2 61 19 155/68 (97) 92 Mechanical Ventilator 45.00 07/31/21 15:25 57 20 92 45 07/31/21 15:02 67 163/72 07/31/21 15:00 37.3 58 20 159/70 (99) 92 Mechanical Ventilator 45.00 07/31/21 14:00 36.7 67 26 174/80 (111) 93 Mechanical Ventilator 45.00 07/31/21 13:20 129 20 213/111 07/31/21 13:00 79 07/31/21 13:00 36.5 76 26 166/76 (106) 93 Mechanical Ventilator 45.00 07/31/21 12:14 35.9 07/31/21 12:00 36.5 80 22 155/70 (98) 94 Mechanical Ventilator 45.00 07/31/21 12:00 Mechanical Ventilator 45 07/31/21 11:00 35.6 93 22 164/77 (106) 95 Mechanical Ventilator 45.00 07/31/21 10:56 85 20 96 45 07/31/21 10:00 36.3 101 19 183/85 (117) 96 Mechanical Ventilator 45.00 I & O 08/01/21 07:00 Intake Total 2030 ml Output Total 4800 ml Balance -2770 ml Height & Weight Height: 5'3.00" Weight: 139lbs. 0.0oz. 63.724345cf; 23.48 BMI Method:Stated General Appearance: No Apparent Distress, WD/WN, Chronically ill, Thin HEENT: PERRL/EOMI, Normal ENT Inspection, Pharynx Normal, Moist Mucous Membranes Neck: Full Range of Motion, Normal Inspection, Non Tender Respiratory: Decreased Breath Sounds Cardiovascular: Regular Rate, Rhythm Capillary Refill: Less Than 3 Seconds Peripheral Pulses: 1+ Dorsalis Pedis (R), 1+ Left Dors-Pedis (L) (See free text) Gastrointestinal: soft, no organomegaly Extremity: Normal Capillary Refill, Normal Inspection, Normal Range of Motion, Non Tender, No Calf Tenderness, No Pedal Edema Neurologic/Psychiatric: Alert, Oriented x3, No Motor/Sensory Deficits, Normal Mood/Affect Skin: Normal Color, Warm/Dry Lymphatic: No Adenopathy Results Lab Laboratory Tests 07/31/21 03:00 08/01/21 04:18 Assessment/Plan Assessment/Plan See free text. Critical Care: Ventilator Management FRITZ CLOUD MD Aug 01, 2021 10:00
[2021-08-01] MEDS: NOREPINEPHRINE 8 MG/250 ML 250 ML IV SCH (11:18)
[2021-08-01] MEDS: PROPOFOL DRIP (ICU) 100 ML IV SCH ×2 (11:18→22:46)
[2021-08-01] MEDS ORDERED: FUROSEMIDE 40 MG/4 ML INJ (LASIX) IVP ONE (12:00)
[2021-08-01] MEDS: QUEtiapine 25 MG (SEROquel) TAB IMMEDIATE RELEASE PO SCH ×2 (12:13→20:51)
[2021-08-01] MEDS: MIDAZOLAM DRIP PRE-MIX 100 ML IV SCH (13:06)
[2021-08-01] MEDS: hydrALAZINE (APESOLINE) 20 MG/ML VIAL IV PRN (23:23)
[2021-08-02] VITALS (30 sets, daily range): BP systolic 119–227; BP diastolic 57–105
[2021-08-02] MEDS: inSUlin ASPART (NovoLOG) 1 UNIT/0.01 ML (CHARGE PER UNIT) SC SCH ×5 (00:12→23:48)
[2021-08-02] MEDS: LORazepam INJ 2 MG/ML (ATIVAN) VIAL IVP PRN ×5 (00:35→23:48)
[2021-08-02] MEDS: morphine INJ 4 MG/ML 1 ML (VIAL/SYRINGE) IV PRN ×4 (00:35→21:32)
[2021-08-02] MEDS: RT-ALBUTEROL/IPRATROPIUM 3 ML (DUONEB) VIAL INH SCH ×7 (02:25→22:02)
[2021-08-02] MEDS: fentaNYL DRIP PRE-MIX 250 ML IV SCH ×3 (02:33→11:21)
[2021-08-02 05:05] LABS: ABG BASE EXCESS 6.1 MMOL/L (-2.5-2.5); ABG OXYGEN SATURATION 97 % (94-100); ABG PCO2 42 MMHG (35-45); ABG PH 7.46 (7.37-7.43); ABG PO2 82 MMHG (79-93); ABG TCO2 31.4 MMOL/L (21.0-31.0)
[2021-08-02 05:06] LABS: ALLENS TEST YES-POS; INSPIRED O2 50%; PATIENT TEMP 36.3; VENTILATOR YES
[2021-08-02 05:14] LABS: BASOPHILS % (AUTO) 0 % (0-10); EOSINOPHILS % (AUTO) 0 % (0-10); HEMATOCRIT 24 % (35-52); HEMOGLOBIN 7.7 g/dL (11.5-16.0); LYMPHOCYTES # (AUTO) 0.8 10^3/uL (1.0-4.0); LYMPHOCYTES % (AUTO) 6 % (12-44); MEAN CORPUSCULAR HEMOGLOBIN 26 pg (25-34); MEAN CORPUSCULAR HGB CONC 32 g/dL (32-36); MEAN CORPUSCULAR VOLUME 81 fL (80-99); MEAN PLATELET VOLUME 11.6 fL (9.0-12.2); MONOCYTES # (AUTO) 0.9 10^3/uL (0.0-1.0); MONOCYTES % (AUTO) 6 % (0-12); NEUTROPHILS # (AUTO) 11.8 10^3/uL (1.8-7.8); NEUTROPHILS % (AUTO) 82 % (42-75); PLATELET COUNT 227 10^3/uL (130-400); WHITE BLOOD COUNT 14.4 10^3/uL (4.3-11.0)
[2021-08-02 05:18] LABS: ALBUMIN 2.7 GM/DL (3.2-4.5); POTASSIUM 3.8 MMOL/L (3.6-5.0)
[2021-08-02 05:20] LABS: CALCIUM 7.9 MG/DL (8.5-10.1)
[2021-08-02 05:21] LABS: TOTAL PROTEIN 4.9 GM/DL (6.4-8.2)
[2021-08-02 05:23] LABS: BILIRUBIN,TOTAL 0.3 MG/DL (0.1-1.0)
[2021-08-02 05:24] LABS: CREATININE SERUM 0.48 MG/DL (0.60-1.30)
[2021-08-02 05:27] LABS: MAGNESIUM 1.9 MG/DL (1.6-2.4)
[2021-08-02] MEDS: MAGNESIUM 1 GM/100 ML IVPB 100 ML IV SCH (05:29)
[2021-08-02] MEDS: POTASSIUM CL 10MEQ/50ML IVPB 50 ML IV SCH (05:29)
[2021-08-02] MEDS: KCL 20 MEQ TAB (K-DUR) PO SCH (05:29)
[2021-08-02] MEDS: methylPREDNISolone 40 MG/ML (Solu-MEDROL) VIAL IV SCH ×4 (05:34→23:48)
[2021-08-02] MEDS: MIDAZOLAM DRIP PRE-MIX 100 ML IV SCH (07:30)
[2021-08-02] MEDS: QUEtiapine 25 MG (SEROquel) TAB IMMEDIATE RELEASE PO SCH ×2 (08:22→21:31)
[2021-08-02] MEDS: SENNOSIDES 8.6 MG (SENOKOT) TAB PO SCH ×2 (08:22→21:31)
[2021-08-02] MEDS: SENNA W/DOCUSATE (SENOKOT S) TABLET PO SCH ×2 (08:22→21:31)
[2021-08-02] MEDS: DOCUSATE SODIUM 100 MG (COLACE) CAP PO SCH ×2 (08:22→21:31)
[2021-08-02] MEDS: MONTELUKAST 10 MG (SINGULAIR) TAB PO SCH (08:22)
[2021-08-02] MEDS: PANTOPRAZOLE 40 MG (PROTONIX) VIAL IV SCH ×2 (08:22→21:31)
[2021-08-02] MEDS: ENOXAPARIN 40 MG/0.4 ML (LOVENOX) SYR SC SCH (08:22)
[2021-08-02] MEDS: LORATADINE (CLARITIN) 10 MG TAB PO SCH (08:22)
[2021-08-02] MEDS: hydrALAZINE (APESOLINE) 20 MG/ML VIAL IV PRN (08:58)
--- NOTE | 2021-08-02 09:35 | Tele-ICU Progress Note ---
Subjective Date Seen by a Provider: Aug 02, 2021 Time Seen by a Provider: 09:34 Sepsis Event Evaluation Height, Weight, BMI Height: 5'3.00" Weight: 139lbs. 0.0oz. 63.459408ph; 23.48 BMI Method:Stated Focused Exam Lactate Level 07/31/21 23:23: Lactic Acid Level 0.46L Exam Exam Patient acknowledged, consented, and participated in this virtual visit which was conducted using real time audio/video Vital Signs Date Time Temp Pulse Resp B/P (MAP) Pulse Ox O2 Delivery O2 Flow Rate FiO2 08/02/21 08:00 36.1 08/02/21 07:30 61 20 134/67 08/02/21 07:03 61 20 94 45 08/02/21 07:00 61 08/02/21 06:00 66 20 156/71 (99) 93 Mechanical Ventilator 45.00 08/02/21 05:36 Mechanical Ventilator 45.00 08/02/21 05:00 70 20 158/72 (100) 94 Mechanical Ventilator 50.00 08/02/21 04:34 Mechanical Ventilator 50.00 08/02/21 04:34 36.3 08/02/21 04:00 66 20 142/66 (91) 94 Mechanical Ventilator 55.00 08/02/21 04:00 Mechanical Ventilator 55 08/02/21 03:00 66 20 123/59 (80) 94 Mechanical Ventilator 55.00 08/02/21 02:26 64 20 96 55 08/02/21 02:00 101 20 145/75 (98) 95 Mechanical Ventilator 55.00 08/02/21 01:00 129 20 215/100 (138) 93 Mechanical Ventilator 55.00 08/02/21 01:00 129 08/02/21 00:45 Mechanical Ventilator 55.00 08/02/21 00:00 Mechanical Ventilator 45 08/02/21 00:00 63 20 119/57 (77) 91 Mechanical Ventilator 45.00 08/01/21 23:23 36.7 08/01/21 23:00 55 20 182/82 (115) 95 Mechanical Ventilator 45.00 08/01/21 22:00 56 20 174/78 (110) 96 Mechanical Ventilator 45.00 08/01/21 21:00 58 20 182/80 (114) 93 Mechanical Ventilator 45.00 08/01/21 20:00 36.3 08/01/21 20:00 Mechanical Ventilator 45 08/01/21 20:00 57 20 172/76 (108) 92 Mechanical Ventilator 45.00 08/01/21 19:00 57 20 164/75 (104) 91 Mechanical Ventilator 45.00 08/01/21 19:00 57 08/01/21 18:59 56 20 91 45 08/01/21 18:00 100 19 198/99 (132) 91 Mechanical Ventilator 45.00 08/01/21 17:00 116 31 210/102 (138) 94 Mechanical Ventilator 45.00 08/01/21 16:15 36.6 58 92 08/01/21 16:14 Mechanical Ventilator 45 08/01/21 16:00 36.4 08/01/21 16:00 108 15 191/88 (122) 96 Mechanical Ventilator 45.00 08/01/21 15:03 58 20 92 45 08/01/21 15:00 57 20 151/70 (97) 91 Mechanical Ventilator 45.00 08/01/21 14:55 Mechanical Ventilator 45.00 08/01/21 13:52 141/68 08/01/21 13:06 168/79 08/01/21 13:00 72 08/01/21 13:00 68 19 141/67 (91) 90 Mechanical Ventilator 40.00 08/01/21 12:20 Mechanical Ventilator 40 08/01/21 12:00 74 145/70 (95) 91 Mechanical Ventilator 40.00 08/01/21 11:47 36.6 08/01/21 11:00 73 19 153/77 (102) 92 Mechanical Ventilator 40.00 08/01/21 10:39 113 23 94 40 08/01/21 10:00 101 19 197/99 (131) 92 Mechanical Ventilator 40.00 I & O 08/02/21 07:00 Intake Total 1866 ml Output Total 3700 ml Balance -1834 ml Height & Weight Height: 5'3.00" Weight: 139lbs. 0.0oz. 63.945266ia; 23.48 BMI Method:Stated General Appearance: WD/WN, Anxious, Chronically ill HEENT: PERRL/EOMI, Normal ENT Inspection, Pharynx Normal, Moist Mucous M embranes Neck: Full Range of Motion, Normal Inspection, Non Tender Respiratory: No Accessory Muscle Use, No Respiratory Distress, Decreased Breath Sounds Cardiovascular: Regular Rate, Rhythm Capillary Refill: Less Than 3 Seconds Peripheral Pulses: 1+ Dorsalis Pedis (R), 1+ Left Dors-Pedis (L) (See free text) Gastrointestinal: soft, no organomegaly Extremity: Normal Capillary Refill, Normal Inspection, Normal Range of Motion, Non Tender, No Calf Tenderness, No Pedal Edema Neurologic/Psychiatric: Alert, Oriented x3, No Motor/Sensory Deficits, Normal Mood/Affect Skin: Normal Color, Warm/Dry Lymphatic: No Adenopathy Results Lab Laboratory Tests 08/01/21 04:18 08/02/21 04:30 Assessment/Plan Assessment/Plan (Tele-ICU Physician , Progress Note ) Available chart/ vitals / labs / Images reviewed Video assessment done using teleICU camera, rest of exam as per RN Discussed with RN , EXAM PER RN Events overnight : secreation in ETT Afebrile Pressors: , hemodynamically stable versed 10 , precedex 0.5 fentanyl 300 - RASS -1 VENT SETTINGS and ABG reviewed candidate for SBT today REVIEWED Cardiovascular Stability / Sedation Score / FI02/PEEP / ABG / CXR hospital course 07/24) 60F admitted for COPD, ?PNA vs hypoxia/metformin causing Lactic acidosis. INTUBATED. (07/25) Elevated WBC (steroids?), Anemia (07/31) Dark from gt, r/o ischemic bowel. Lactate (-)// CT abdo/Lactates, unremarkable. A/P Acute and chronic hypercarbic and hypoxic respiratory failure r - intubated , follow on vent - hopefully SBT- off sedation was ? hr and bp - adjusting sedation , trying SBT on sedation to ssee pulmonary mechanics LASIX x1 AECOPD - still significant wheezing , PAP 40 - solumedrol nebs possible PNA -sputum for c/s and cont iv abx's ( 07/27 Hypotension secondary to positive pressure ventilation as well as volume contraction -improved bloody secretion in NG 07/28 ---->(07/31) Dark from gt, r/o ischemic bowel. Lactate (-) - CT abdo/Lactates, unremarkable - decreasing steroids - PPI to bid - hn stable Lines : cetral line (Central Line Necessity Reviewed) Ohara: + OG:+ Nutrition: start TF Analgesia: Anxiety/ delirium VTE Prophylaxis: rosanne proph Stress Ulcer Prophylaxis: ppi Glycemic Control: Plans in collaboration with bedside consultants and IM MDs. Discussed with RN to reach out if any questions or concerns A total of 33 minutes of critical care time was devoted to this patient today, required to treat and/or prevent further deterioration of critical care condition ( as above ) ZULEMA FUNK MD Aug 02, 2021 09:35
[2021-08-02] MEDS ORDERED: FUROSEMIDE 40 MG/4 ML INJ (LASIX) IVP ONE (09:45)
[2021-08-02] MEDS: DexMEDEtomidine 250 ML DRIP 250 ML IV SCH ×2 (09:52→19:20)
[2021-08-02 11:05] LABS: ABG OXYGEN SATURATION 96 % (94-100); ABG PCO2 47 MMHG (35-45); ABG PH 7.43 (7.37-7.43); ABG PO2 80 MMHG (79-93); ABG TCO2 31.9 MMOL/L (21.0-31.0)
[2021-08-02 11:06] LABS: ALLENS TEST YES-POS; INSPIRED O2 45%; PATIENT TEMP 36.5; VENTILATOR YES
[2021-08-02] MEDS: NOREPINEPHRINE 8 MG/250 ML 250 ML IV SCH (11:08)
[2021-08-02] MEDS: PROPOFOL DRIP (ICU) 100 ML IV SCH ×2 (12:02→23:49)
[2021-08-02] MEDS ORDERED: LABETALOL HCL 20 MG/4 ML VIAL IV ONE ×2 (14:30→19:00)
[2021-08-02] MEDS ORDERED: LABETALOL HCL 20 MG/4 ML VIAL IV PRN (17:45)
[2021-08-02] MEDS: niCARdipine IV 50 MG in NS (IVPB) 230 ML IV PRN (19:20)
--- NOTE | 2021-08-02 22:13 | Progress Note ---
Subjective Subjective/Events-last exam Intubated, currently in SBT Review of Systems Unable to complete due to intubation Focused Exam Lactate Level 07/31/21 23:23: Lactic Acid Level 0.46L Objective Exam Last Set of Vital Signs Vital Signs Date Time Temp Pulse Resp B/P (MAP) Pulse Ox O2 Delivery O2 Flow Rate FiO2 08/02/21 22:02 88 27 93 50.00 08/02/21 20:28 NIV Bilevel 50 08/02/21 20:00 36.9 08/02/21 19:20 208/95 Capillary Refill : Less Than 3 Seconds I&O Intake and Output 08/02/21 00:00 Intake Total 2100 ml Output Total 5375 ml Balance -3275 ml Intake Oral 0 ml IV Total 1550 ml Tube Feeding 90 ml Other 460 ml Output Urine Total 3975 ml Gastric Drainage Total 1400 ml General: Mild Distress Lungs: Clear to Auscultation, Normal Air Movement Heart: No Murmurs, Other (tachycardic rate) Abdomen: Normal Bowel Sounds, Soft Extremities: No Edema, No Tenderness/Swelling Results/Procedures Lab Laboratory Tests 08/02/21 04:30: White Blood Count 14.4H, Red Blood Count 3.01L, Hemoglobin 7.7L, Hematocrit 24L, Mean Corpuscular Volume 81, Mean Corpuscular Hemoglobin 26, Mean Corpuscular Hemoglobin Concent 32, Red Cell Distribution Width 17.3H, Platelet Count 227, Mean Platelet Volume 11.6, Immature Granulocyte % (Auto) 6, Neutrophils (%) (Auto) 82H, Lymphocytes (%) (Auto) 6L, Monocytes (%) (Auto) 6, Eosinophils (%) (Auto) 0, Basophils (%) (Auto) 0, Neutrophils # (Auto) 11.8H, Lymphocytes # (Auto) 0.8L, Monocytes # (Auto) 0.9, Eosinophils # (Auto) 0.0, Basophils # (Auto) 0.0, Immature Granulocyte # (Auto) 0.9H, Blood Gas Puncture Site LEFT RADIAL, Blood Gas Patient Temperature 36.3, Arterial Blood pH 7.46H, Arterial Blood Partial Pressure CO2 42, Arterial Blood Partial Pressure O2 82, Arterial Blood HCO3 30H, Arterial Blood Total CO2 31.4H, Arterial Blood Oxygen Saturation 97, Arterial Blood Base Excess 6.1H, Wes Test YES-POS, Blood Gas Ventilator Setting YES, Blood Gas Inspired Oxygen 50%, Sodium Level 138, Potassium Level 3.8, Chloride Level 102, Carbon Dioxide Level 29, Anion Gap 7, Blood Urea Nitrogen 19H, Creatinine 0.48L, Estimat Glomerular Filtration Rate 131, BUN/Creatinine Ratio 40, Glucose Level 226H, Calcium Level 7.9L, Corrected Calcium 8.9, Magnesium Level 1.9, Total Bilirubin 0.3, Aspartate Amino Transf (AST/SGOT) 15, Alanine Aminotransferase (ALT/SGPT) 23, Alkaline Phosphatase 37L, Total Protein 4.9L, Albumin 2.7L 08/02/21 10:55: Blood Gas Puncture Site L RAD, Blood Gas Patient Temperature 36.5, Arterial Blood pH 7.43, Arterial Blood Partial Pressure CO2 47H, Arterial Blood Partial Pressure O2 80, Arterial Blood HCO3 30H, Arterial Blood Total CO2 31.9H, Arterial Blood Oxygen Saturation 96, Arterial Blood Base Excess 6.0H, Wes Test YES-POS, Blood Gas Ventilator Setting YES, Blood Gas Inspired Oxygen 45% 08/02/21 11:49: Glucometer 204H 08/02/21 17:40: Glucometer 200H Microbiology 07/27/21 Gram Stain - Final, Complete 07/27/21 Sputum Culture - Final, Complete Usual upper respiratory porfirio 07/24/21 Blood Culture - Final, Complete No growth 07/24/21 Urine Culture - Final, Complete Gram Pos Mixed Bacterial Porfirio Assessment/Plan Assessment/Plan (1) COPD with acute exacerbation Status: Acute Assessment & Plan: Requiring intubation, currently remains intubated, appreciate Nat ICU assistance. Solumedrol 80 mg q6. Started on cefepime on 07/27. 08/02: SBT today, will try to extubate later today (2) Acute and chronic respiratory failure Status: Acute (3) Diabetes Status: Chronic Assessment & Plan: Sliding scale insulin per ICU protocol. Qualifiers: Qualified Codes: E11.65 - Type 2 diabetes mellitus with hyperglycemia (4) Lactic acid acidosis Status: Resolved Assessment & Plan: Suspect secondary to COPD exacerbation and metformin, resolved. (5) Hypertension Status: Chronic Assessment & Plan: Initially hypotensive, requiring norepinephrine initially, maintaining BP at this time. (6) HX: breast cancer Status: Chronic (7) Hyperlipemia Status: Chronic (8) DVT prophylaxis Status: Acute Assessment & Plan: Enoxaparin NIKA GONZALEZ MD Aug 02, 2021 22:13
[2021-08-02 22:32] LABS: ABG BASE EXCESS 8.1 MMOL/L (-2.5-2.5); ABG OXYGEN SATURATION 96 % (94-100); ABG PCO2 41 MMHG (35-45); ABG PO2 71 MMHG (79-93); ALLENS TEST ART LINE; INSPIRED O2 50%; VENTILATOR NO
[2021-08-03] VITALS (35 sets, daily range): BP systolic 90–163; BP diastolic 51–79
[2021-08-03] MEDS: niCARdipine IV 50 MG in NS (IVPB) 230 ML IV PRN ×2 (01:31→04:56)
[2021-08-03] MEDS: RT-ALBUTEROL/IPRATROPIUM 3 ML (DUONEB) VIAL INH SCH ×6 (01:51→22:22)
[2021-08-03] MEDS: DexMEDEtomidine 250 ML DRIP 250 ML IV SCH (03:06)
[2021-08-03] MEDS ORDERED: niCARdipine IV FOR DRIP 50 MG KIT ONE (03:09)
[2021-08-03] MEDS ORDERED: NS (IVPB) 250 ML ONE (03:10)
[2021-08-03 04:07] LABS: ABG BASE EXCESS 7.2 MMOL/L (-2.5-2.5); ABG OXYGEN SATURATION 97 % (94-100); ABG PCO2 38 MMHG (35-45); ABG PH 7.52 (7.37-7.43); ABG PO2 85 MMHG (79-93); ABG TCO2 31.7 MMOL/L (21.0-31.0)
[2021-08-03 04:09] LABS: ALLENS TEST ART LINE; INSPIRED O2 50%; VENTILATOR YES
[2021-08-03 04:12] LABS: BASOPHILS % (AUTO) 0 % (0-10); EOSINOPHILS % (AUTO) 0 % (0-10); HEMATOCRIT 28 % (35-52); HEMOGLOBIN 8.9 g/dL (11.5-16.0); LYMPHOCYTES # (AUTO) 0.9 10^3/uL (1.0-4.0); LYMPHOCYTES % (AUTO) 5 % (12-44); MEAN CORPUSCULAR HEMOGLOBIN 26 pg (25-34); MEAN CORPUSCULAR HGB CONC 32 g/dL (32-36); MEAN CORPUSCULAR VOLUME 80 fL (80-99); MEAN PLATELET VOLUME 11.1 fL (9.0-12.2); MONOCYTES # (AUTO) 1.5 10^3/uL (0.0-1.0); MONOCYTES % (AUTO) 8 % (0-12); NEUTROPHILS % (AUTO) 85 % (42-75); PLATELET COUNT 278 10^3/uL (130-400); WHITE BLOOD COUNT 19.9 10^3/uL (4.3-11.0)
[2021-08-03 04:23] LABS: ALBUMIN 3.1 GM/DL (3.2-4.5)
[2021-08-03 04:24] LABS: POTASSIUM 3.6 MMOL/L (3.6-5.0)
[2021-08-03 04:25] LABS: CALCIUM 8.3 MG/DL (8.5-10.1)
[2021-08-03 04:26] LABS: TOTAL PROTEIN 5.5 GM/DL (6.4-8.2)
[2021-08-03 04:28] LABS: BILIRUBIN,TOTAL 0.4 MG/DL (0.1-1.0)
[2021-08-03 04:29] LABS: PHOSPHORUS 2.6 MG/DL (2.3-4.7)
[2021-08-03 04:30] LABS: CREATININE SERUM 0.47 MG/DL (0.60-1.30)
[2021-08-03] MEDS: methylPREDNISolone 40 MG/ML (Solu-MEDROL) VIAL IV SCH ×3 (04:54→18:08)
[2021-08-03] MEDS: POTASSIUM CL 10MEQ/50ML IVPB 50 ML IV SCH ×3 (04:54→04:57)
[2021-08-03] MEDS: inSUlin ASPART (NovoLOG) 1 UNIT/0.01 ML (CHARGE PER UNIT) SC SCH ×3 (04:55→18:08)
[2021-08-03] MEDS: MAGNESIUM 1 GM/100 ML IVPB 100 ML IV SCH (04:55)
[2021-08-03] MEDS: KCL 20 MEQ TAB (K-DUR) PO SCH (04:55)
[2021-08-03] MEDS: LORazepam INJ 2 MG/ML (ATIVAN) VIAL IVP PRN (07:38)
[2021-08-03] MEDS ORDERED: PROPOFOL DRIP (ICU) 100 ML IV ONE ×2 (08:10→13:22)
[2021-08-03] MEDS: PANTOPRAZOLE 40 MG (PROTONIX) VIAL IV SCH ×2 (08:34→20:47)
[2021-08-03] MEDS: ENOXAPARIN 40 MG/0.4 ML (LOVENOX) SYR SC SCH (08:35)
--- NOTE | 2021-08-03 08:52 | Diagnostic Imaging Report ---
INDICATION: Respiratory failure, intubation Frontal chest obtained at 848 hours a.m. and compared to 07/31/2021. ET tube and NG tube and left IJ central catheter are all unchanged. Heart is borderline enlarged. Central vascular congestion appears similar to the prior study. There is mild bibasilar infiltrate. There is no pneumothorax or pleural fluid IMPRESSION: Stable life support lines compared to the prior study. No change in bibasilar infiltrates. There is no pneumothorax or other new finding. Dictated by: Dictated on workstation # [id number]
--- NOTE | 2021-08-03 08:59 | Anesthesia-Procedure Note ---
Procedures/Interventions Procedure Start/Stop/Diagnosis Date of Procedure: Aug 03, 2021 Start Time: 08:20 Brief History Called to ICU9 for urgent intubation. History obtained from patient's nurse. K+ level reviewed. Patient was extubated yesterday but has declined. She is nonverbal to me, unable to arouse. Consent obtained from patient's daughter per RN. Art line in place and noted good waveform. SaO2 100% on 100% O2. Versed 2 mg, Propofol 50mg, and 100mg Succs given thru patient's central line. 7.5 ett placed with glidescope. Nice, grade 1 view. Secured ett at 22 cm and handed over to RT. We will be available for further consultation as needed. Stop Time: 08:26 Intubation RSI: Yes Intubation Method: orotracheal Videoscope used: Yes (Glidescope) Medications: Propofol (50mg), Succinylcholine (100mg), Versed (2mg) Mask Ventilation: positive Positive End Tide CO2: Yes Breath Sounds after Intubation: bilateral-equal ETT Securred @ (cm): 22 Intubated with ease: Yes Intubation Complications: no complications Post Intubation Xray-done: Yes ESTEPHANIA CASTILLO CRNA Aug 03, 2021 08:59
[2021-08-03] MEDS: DOCUSATE SODIUM 100 MG (COLACE) CAP PO SCH ×2 (09:00→20:47)
[2021-08-03] MEDS: LORATADINE (CLARITIN) 10 MG TAB PO SCH (09:00)
[2021-08-03] MEDS: MONTELUKAST 10 MG (SINGULAIR) TAB PO SCH (09:00)
[2021-08-03] MEDS: SENNOSIDES 8.6 MG (SENOKOT) TAB PO SCH ×2 (09:00→20:47)
[2021-08-03 10:02] LABS: ABG BASE EXCESS 5.6 MMOL/L (-2.5-2.5); ABG OXYGEN SATURATION 98 % (94-100); ABG PCO2 41 MMHG (35-45); ABG PH 7.47 (7.37-7.43); ABG PO2 85 MMHG (79-93); ABG TCO2 30.9 MMOL/L (21.0-31.0)
[2021-08-03 10:04] LABS: ALLENS TEST YES-POS; INSPIRED O2 50%; PATIENT TEMP 36.1; VENTILATOR YES
--- NOTE | 2021-08-03 10:09 | Tele-ICU Progress Note ---
Subjective Date Seen by a Provider: Aug 03, 2021 Time Seen by a Provider: 10:08 Sepsis Event Evaluation Height, Weight, BMI Height: 5'3.00" Weight: 139lbs. 0.0oz. 63.341504wh; 23.48 BMI Method:Stated Focused Exam Lactate Level 07/31/21 23:23: Lactic Acid Level 0.46L Exam Exam Patient acknowledged, consented, and participated in this virtual visit which was conducted using real time audio/video Vital Signs Date Time Temp Pulse Resp B/P (MAP) Pulse Ox O2 Delivery O2 Flow Rate FiO2 08/03/21 09:00 56 20 90/51 (64) 100 NIV Bilevel 80.00 08/03/21 08:52 Mechanical Ventilator 80.00 08/03/21 08:35 56 96/52 08/03/21 08:35 Mechanical Ventilator 90.00 08/03/21 08:23 Mechanical Ventilator 100.00 08/03/21 08:00 36.0 08/03/21 08:00 111 32 135/77 (96) 93 NIV Bilevel 50.00 08/03/21 07:00 82 34 122/66 (84) 96 NIV Bilevel 50.00 08/03/21 07:00 82 08/03/21 06:00 84 18 126/68 (87) 95 NIV Bilevel 50.00 08/03/21 05:00 85 18 140/76 (97) 94 NIV Bilevel 50.00 08/03/21 04:09 37.0 NIV Bilevel 50.00 08/03/21 04:08 94 NIV Bilevel 50 08/03/21 04:00 84 18 145/73 (97) 94 NIV Bilevel 50.00 08/03/21 03:06 81 139/79 08/03/21 03:00 90 23 146/76 (99) 93 NIV Bilevel 50.00 08/03/21 02:00 83 18 148/76 (100) 93 NIV Bilevel 50.00 08/03/21 01:51 81 26 94 50.00 08/03/21 01:00 80 20 146/74 (98) 94 NIV Bilevel 50.00 08/03/21 01:00 80 08/03/21 00:00 88 27 140/73 (95) 92 NIV Bilevel 50.00 08/02/21 23:54 92 NIV Bilevel 50 08/02/21 23:52 36.8 NIV Bilevel 50.00 08/02/21 23:00 92 30 144/73 (96) 92 NIV Bilevel 50.00 08/02/21 22:02 88 27 93 50.00 08/02/21 22:00 95 27 146/76 (99) 93 NIV Bilevel 50.00 08/02/21 21:00 82 27 142/68 (92) 91 NIV Bilevel 50.00 08/02/21 20:28 94 NIV Bilevel 50 08/02/21 20:00 36.9 08/02/21 20:00 90 25 157/77 (103) 93 NIV Bilevel 50.00 08/02/21 19:28 37.0 08/02/21 19:20 81 208/95 08/02/21 19:00 80 08/02/21 19:00 NIV Bilevel 50.00 08/02/21 19:00 80 26 206/96 (132) 98 NIV Bilevel 50.00 08/02/21 18:39 81 21 97 50.00 08/02/21 18:00 90 15 210/94 (132) 97 NIV Bilevel 60.00 08/02/21 17:00 96 14 208/90 (129) 97 NIV Bilevel 60.00 08/02/21 16:00 101 15 194/86 (122) 96 NIV Bilevel 60.00 08/02/21 15:56 97 NIV Bilevel 60 08/02/21 15:00 97 16 152/67 (95) 96 NIV Bilevel 60.00 08/02/21 14:11 129 98 50.00 08/02/21 14:06 NIV Bilevel 60.00 08/02/21 14:00 118 25 217/100 (139) 97 Mechanical Ventilator 45.00 08/02/21 13:40 79 21 92 45 08/02/21 13:00 89 08/02/21 13:00 91 14 163/79 (107) 94 Mechanical Ventilator 45.00 08/02/21 12:52 94 Mechanical Ventilator 45 08/02/21 12:00 77 10 129/65 (86) 94 Mechanical Ventilator 45.00 08/02/21 11:59 36.9 08/02/21 11:00 87 10 119/63 (81) 94 Mechanical Ventilator 45.00 08/02/21 10:20 103 15 94 45 I & O 08/03/21 07:00 Intake Total 1648 ml Output Total 7850 ml Balance -6202 ml Height & Weight Height: 5'3.00" Weight: 139lbs. 0.0oz. 63.687995jw; 23.48 BMI Method:Stated General Appearance: WD/WN, Anxious, Chronically ill HEENT: PERRL/EOMI, Normal ENT Inspection, Pharynx Normal, Moist Mucous Membranes Neck: Full Range of Motion, Normal Inspection, Non Tender Respiratory: No Accessory Muscle Use, No Respiratory Distress, Decreased Breath Sounds Cardiovascular: Regular Rate, Rhythm Capillary Refill: Less Than 3 Seconds Peripheral Pulses: 1+ Dorsalis Pedis (R), 1+ Left Dors-Pedis (L) (See free text) Gastrointestinal: soft, no organomegaly Extremity: Normal Capillary Refill, Normal Inspection, Normal Range of Motion, Non Tender, No Calf Tenderness, No Pedal Edema Neurologic/Psychiatric: Alert, Oriented x3, No Motor/Sensory Deficits, Normal Mood/Affect Skin: Normal Color, Warm/Dry Lymphatic: No Adenopathy Results Lab Laboratory Tests 08/02/21 04:30 08/03/21 03:55 Assessment/Plan Assessment/Plan (Tele-ICU Physician , Progress Note ) Available chart/ vitals / labs / Images reviewed Video assessment done using teleICU camera, rest of exam as per RN Discussed with RN , EXAM PER RN Events overnight : secreation in ETT Afebrile Pressors: , hemodynamically stable VENT SETTINGS and ABG reviewed candidate for SBT today REVIEWED Cardiovascular Stability / Sedation Score / FI02/PEEP / ABG / CXR hospital course 07/24) 60F admitted for COPD, ?PNA vs hypoxia/metformin causing Lactic acidosis. INTUBATED. (12) Elevated WBC (steroids?), Anemia (07/31) Dark from gt, r/o ischemic bowel. Lactate (-)// CT abdo/Lactates, unremarkable. 08/01 extubated 08/02 - REINTUBATED A/P Acute and chronic hypercarbic and hypoxic respiratory failure r - 08/02 - REINTUBATED , frailed after 254 h on bipap ( s/p previous intubation for 9 days ) - ? mucous plugging AECOPD - still significant wheezing , PAP 40 - solumedrol to cont nebs to cont , possible PNA -sputum for c/s and cont iv abx's ( 07/27- to repeat now sputum Hypotension secondary to positive pressure ventilation as well as volume contraction -improved bloody secretion in NG 07/28 ---->(07/31) Dark from gt, r/o ischemic bowel. Lactate (-) - CT abdo/Lactates, unremarkable - decreasing steroids - PPI to bid - hn stable Lines : cetral line (Central Line Necessity Reviewed) [place]: + OG:+ Nutrition: start TF Analgesia: Anxiety/ delirium VTE Prophylaxis: rosanne proph Stress Ulcer Prophylaxis: ppi Glycemic Control: Plans in collaboration with bedside consultants and IM MDs. Discussed with RN to reach out if any questions or concerns A total of 33 minutes of critical care time was devoted to this patient today, required to treat and/or prevent further deterioration of critical care condition ( as above ) ZULEMA FUNK MD Aug 03, 2021 10:09
[2021-08-03] MEDS: SENNA W/DOCUSATE (SENOKOT S) TABLET PO SCH ×2 (11:06→20:47)
[2021-08-03] MEDS: QUEtiapine 25 MG (SEROquel) TAB IMMEDIATE RELEASE PO SCH ×2 (11:07→20:47)
[2021-08-03] MEDS: MIDAZOLAM DRIP PRE-MIX 100 ML IV SCH ×2 (12:05→23:02)
[2021-08-03] MEDS: fentaNYL DRIP PRE-MIX 250 ML IV SCH ×3 (12:06→22:54)
[2021-08-03] MEDS: NYSTATIN ORAL SUSP 5 ML UDC PO SCH ×2 (12:06→18:08)
[2021-08-03] MEDS ORDERED: SUCCINYLCHOLINE INJ 100 MG/5 ML SYR/VIAL INJ ONE (12:55)
[2021-08-03] MEDS ORDERED: MIDAZOLAM 5 MG/5 ML (VERSED) VIAL IJ ONE (12:55)
[2021-08-03] MEDS: aCETylcysteine 20% (MUCOMYST) 4 ML SOLN VIAL INH SCH ×2 (14:28→22:22)
[2021-08-03] MEDS: PROPOFOL DRIP (ICU) 100 ML IV SCH ×2 (18:08→21:33)
--- NOTE | 2021-08-03 19:57 | Progress Note ---
Subjective Subjective/Events-last exam Patient reintubated early this AM. Review of Systems Unable to complete due to intubation Focused Exam Lactate Level 07/31/21 23:23: Lactic Acid Level 0.46L Objective Exam Last Set of Vital Signs Vital Signs Date Time Temp Pulse Resp B/P (MAP) Pulse Ox O2 Delivery O2 Flow Rate FiO2 08/03/21 19:47 36.1 08/03/21 19:20 90 20 94 35 08/03/21 18:00 155/68 (97) Mechanical Ventilator 35.00 Capillary Refill : Less Than 3 Seconds I&O Intake and Output 08/03/21 00:00 Intake Total 1624 ml Output Total 5950 ml Balance -4326 ml IV Total 1100 ml Tube Feeding 124 ml Other 400 ml Output Urine Total 5950 ml General: Other (Intubated and sedated) Lungs: Other (diffuse wheezing, course breath sounds) Heart: Regular Rate, No Murmurs Abdomen: Soft Extremities: Other (2+ pitting edema) Results/Procedures Lab Laboratory Tests 08/02/21 22:25: Blood Gas Puncture Site LEFT ART LINE, Blood Gas Patient Temperature 37.0, Arterial Blood pH 7.50H, Arterial Blood Partial Pressure CO2 41, Arterial Blood Partial Pressure O2 71L, Arterial Blood HCO3 32H, Arterial Blood Total CO2 33.0H , Arterial Blood Oxygen Saturation 96, Arterial Blood Base Excess 8.1H, Wes T est ART LINE, Blood Gas Ventilator Setting NO, Blood Gas Inspired Oxygen 50% 08/02/21 23:44: Glucometer 205H 08/03/21 03:55: Blood Gas Puncture Site LEFT RADIAL, Blood Gas Patient Temperature 37.0, Arterial Blood pH 7.52H, Arterial Blood Partial Pressure CO2 38, Arterial Blood Partial Pressure O2 85, Arterial Blood HCO3 31H, Arterial Blood Total CO2 31.7H, Arterial Blood Oxygen Saturation 97, Arterial Blood Base Excess 7.2H, Wes Test ART LINE, Blood Gas Ventilator Setting YES, Blood Gas Inspired Oxygen 50%, White Blood Count 19.9H, Red Blood Count 3.45L, Hemoglobin 8.9L, Hematocrit 28L, Mean Corpuscular Volume 80, Mean Corpuscular Hemoglobin 26, Mean Corpuscular Hemoglobin Concent 32, Red Cell Distribution Width 17.4H, Platelet Count 278, Mean Platelet Volume 11.1, Immature Granulocyte % (Auto) 2, Neutrophils (%) (Auto) 85H, Lymphocytes (%) (Auto) 5L, Monocytes (%) (Auto) 8, Eosinophils (%) (Auto) 0, Basophils (%) (Auto) 0, Neutrophils # (Auto) 17.0H, Lymphocytes # (Auto) 0.9L, Monocytes # (Auto) 1.5H, Eosinophils # (Auto) 0.0, Basophils # (Auto) 0.0, Immature Granulocyte # (Auto) 0.5H, Sodium Level 140, Potassium Level 3.6, Chloride Level 103, Carbon Dioxide Level 26, Anion Gap 11, Blood Urea Nitrogen 15, Creatinine 0.47L, Estimat Glomerular Filtration Rate 135, BUN/Creatinine Ratio 32, Glucose Level 205H, Calcium Level 8.3L, Corrected Calcium 9.0, Phosphorus Level 2.6, Magnesium Level 2.0, Total Bilirubin 0.4, Aspartate Amino Transf (AST/SGOT) 20, Alanine Aminotransferase (ALT/SGPT) 34, Alkaline Phosphatase 45, Total Protein 5.5L, Albumin 3.1L 08/03/21 09:45: Blood Gas Puncture Site LR, Blood Gas Patient Temperature 36.1, Arterial Blood pH 7.47H, Arterial Blood Partial Pressure CO2 41, Arterial Blood Partial Pressure O2 85, Arterial Blood HCO3 30H, Arterial Blood Total CO2 30.9, Arterial Blood Oxygen Saturation 98, Arterial Blood Base Excess 5.6H, Wes Test YES-POS, Blood Gas Ventilator Setting YES, Blood Gas Inspired Oxygen 50% 08/03/21 11:06: Glucometer 171H 08/03/21 17:38: Glucometer 181H Microbiology 07/27/21 Gram Stain - Final, Complete 07/27/21 Sputum Culture - Final, Complete Usual upper respiratory porfirio 07/24/21 Blood Culture - Final, Complete No growth 07/24/21 Urine Culture - Final, Complete Gram Pos Mixed Bacterial Porfirio Assessment/Plan Assessment/Plan (1) COPD with acute exacerbation Status: Acute Assessment & Plan: Requiring intubation, currently remains intubated, appreciate Nat ICU assistance. Solumedrol 80 mg q6. Started on cefepime on 07/27. 08/02: SBT today, will try to extubate later today 08/03: Patient extubated yesterday afternoon and then require reintubation this AM, will work on [place] referral (2) Acute and chronic respiratory failure Status: Acute (3) Diabetes Status: Chronic Assessment & Plan: Sliding scale insulin per ICU protocol. Qualifiers: Qualified Codes: E11.65 - Type 2 diabetes mellitus with hyperglycemia (4) Lactic acid acidosis Status: Resolved Assessment & Plan: Suspect secondary to COPD exacerbation and metformin, resolved. (5) Hypertension Status: Chronic Assessment & Plan: Initially hypotensive, requiring norepinephrine initially, maintaining BP at this time. (6) HX: breast cancer Status: Chronic (7) Hyperlipemia Status: Chronic (8) DVT prophylaxis Status: Acute Assessment & Plan: Enoxaparin NIKA GONZALEZ MD Aug 03, 2021 19:57
[2021-08-04] VITALS (27 sets, daily range): BP systolic 125–181; BP diastolic 57–76
[2021-08-04] MEDS: NYSTATIN ORAL SUSP 5 ML UDC PO SCH ×4 (00:21→18:44)
[2021-08-04] MEDS: methylPREDNISolone 40 MG/ML (Solu-MEDROL) VIAL IV SCH ×4 (00:21→18:44)
[2021-08-04] MEDS: inSUlin ASPART (NovoLOG) 1 UNIT/0.01 ML (CHARGE PER UNIT) SC SCH ×4 (00:44→18:44)
[2021-08-04] MEDS: RT-ALBUTEROL/IPRATROPIUM 3 ML (DUONEB) VIAL INH SCH ×6 (02:47→21:49)
[2021-08-04] MEDS: fentaNYL DRIP PRE-MIX 250 ML IV SCH ×5 (03:09→20:33)
[2021-08-04 04:19] LABS: BASOPHILS % (AUTO) 0 % (0-10); EOSINOPHILS % (AUTO) 0 % (0-10); HEMATOCRIT 23 % (35-52); HEMOGLOBIN 7.5 g/dL (11.5-16.0); LYMPHOCYTES # (AUTO) 0.6 10^3/uL (1.0-4.0); LYMPHOCYTES % (AUTO) 5 % (12-44); MEAN CORPUSCULAR HEMOGLOBIN 26 pg (25-34); MEAN CORPUSCULAR HGB CONC 32 g/dL (32-36); MEAN CORPUSCULAR VOLUME 81 fL (80-99); MEAN PLATELET VOLUME 11.3 fL (9.0-12.2); MONOCYTES # (AUTO) 0.6 10^3/uL (0.0-1.0); MONOCYTES % (AUTO) 5 % (0-12); NEUTROPHILS # (AUTO) 10.6 10^3/uL (1.8-7.8); NEUTROPHILS % (AUTO) 89 % (42-75); PLATELET COUNT 209 10^3/uL (130-400); WHITE BLOOD COUNT 11.9 10^3/uL (4.3-11.0)
[2021-08-04 04:20] LABS: ABG BASE EXCESS 4.1 MMOL/L (-2.5-2.5); ABG OXYGEN SATURATION 95 % (94-100); ABG PCO2 39 MMHG (35-45); ABG PH 7.47 (7.37-7.43); ABG PO2 69 MMHG (79-93); ABG TCO2 29.1 MMOL/L (21.0-31.0)
[2021-08-04 04:25] LABS: ALLENS TEST YES-POS; INSPIRED O2 35%; PATIENT TEMP 36.5; VENTILATOR YES
[2021-08-04 04:33] LABS: ALBUMIN 2.7 GM/DL (3.2-4.5); POTASSIUM 3.8 MMOL/L (3.6-5.0)
[2021-08-04 04:34] LABS: CALCIUM 7.9 MG/DL (8.5-10.1)
[2021-08-04 04:35] LABS: TOTAL PROTEIN 4.8 GM/DL (6.4-8.2)
[2021-08-04 04:37] LABS: BILIRUBIN,TOTAL 0.3 MG/DL (0.1-1.0)
[2021-08-04 04:39] LABS: CREATININE SERUM 0.46 MG/DL (0.60-1.30)
[2021-08-04 04:42] LABS: MAGNESIUM 1.9 MG/DL (1.6-2.4)
[2021-08-04] MEDS: MAGNESIUM 1 GM/100 ML IVPB 100 ML IV SCH (05:02)
[2021-08-04] MEDS: POTASSIUM CL 10MEQ/50ML IVPB 50 ML IV SCH (05:02)
[2021-08-04] MEDS: KCL 20 MEQ TAB (K-DUR) PO SCH (05:03)
[2021-08-04] MEDS: DexMEDEtomidine 250 ML DRIP 250 ML IV SCH (06:01)
[2021-08-04] MEDS: aCETylcysteine 20% (MUCOMYST) 4 ML SOLN VIAL INH SCH ×3 (07:10→21:50)
[2021-08-04] MEDS: PROPOFOL DRIP (ICU) 100 ML IV SCH ×3 (07:41→22:11)
[2021-08-04] MEDS: LORATADINE (CLARITIN) 10 MG TAB PO SCH (07:42)
[2021-08-04] MEDS: DOCUSATE SODIUM 100 MG (COLACE) CAP PO SCH ×2 (07:42→20:33)
[2021-08-04] MEDS: PANTOPRAZOLE 40 MG (PROTONIX) VIAL IV SCH ×2 (07:42→20:33)
[2021-08-04] MEDS: SENNA W/DOCUSATE (SENOKOT S) TABLET PO SCH ×2 (07:42→20:33)
[2021-08-04] MEDS: MONTELUKAST 10 MG (SINGULAIR) TAB PO SCH (07:42)
[2021-08-04] MEDS: SENNOSIDES 8.6 MG (SENOKOT) TAB PO SCH ×2 (07:43→20:33)
[2021-08-04] MEDS: QUEtiapine 25 MG (SEROquel) TAB IMMEDIATE RELEASE PO SCH ×2 (07:43→20:33)
[2021-08-04] MEDS: ENOXAPARIN 40 MG/0.4 ML (LOVENOX) SYR SC SCH (07:43)
[2021-08-04] MEDS: MIDAZOLAM DRIP PRE-MIX 100 ML IV SCH ×2 (07:44→18:45)
--- NOTE | 2021-08-04 09:46 | Diagnostic Imaging Report ---
Indication: Ventilator support. TIME OF EXAM: 9:27 AM Correlation is made with prior chest one day earlier. ET tube is in good position above the rios. Left-sided line has tip overlying SVC. NG tube passes below the diaphragm. Lungs appear to be fairly stable. There is some atelectasis in the left perihilar region which does appear to be improved since yesterday. Basilar opacities are stable to perhaps minimally improved as well. No effusion or pneumothorax is seen. IMPRESSION: Slight improved aeration of both lungs when compared to examination one day earlier. Dictated by: Dictated on workstation # [id number]
--- NOTE | 2021-08-04 09:46 | Diagnostic Imaging Report ---
INDICATION: Ileus. TIME OF EXAM: 9:25 AM There is some moderate gaseous distention of small bowel loops throughout the central abdomen. The colon appears to be decompressed. No bowel wall thickening or pneumatosis is seen. There is no free air. NG tube is in the stomach. IMPRESSION: Moderate gaseous distention small bowel loop central abdomen, perhaps owing to ileus. Small bowel obstruction cannot be entirely excluded and continued progress films would be recommended. Dictated by: Dictated on workstation # [id number]
--- NOTE | 2021-08-04 11:43 | Tele-ICU Progress Note ---
Subjective Date Seen by a Provider: Aug 04, 2021 Time Seen by a Provider: 11:43 Subjective/Events-last exam Patient reintubated on 08/03/2021. Patient not tolerating NG feeds. KUB x-ray revealed intestinal ileus. Video visit made and discussed with the SENIOR DATA QUALITY ANALYST. Review of Systems ROS PER RN Sepsis Event Evaluation Height, Weight, BMI Height: 5'3.00" Weight: 139lbs. 0.0oz. 63.760940wy; 23.48 BMI Method:Stated Exam Exam Patient acknowledged, consented, and participated in this virtual visit which was conducted using real time audio/video Vital Signs Date Time Temp Pulse Resp B/P (MAP) Pulse Ox O2 Delivery O2 Flow Rate FiO2 08/04/21 11:39 35.7 08/04/21 11:00 93 Mechanical Ventilator 35 08/04/21 10:25 54 20 94 35 08/04/21 10:00 53 19 158/63 (94) 94 Mechanical Ventilator 35.00 08/04/21 09:00 50 22 155/65 (95) 94 Mechanical Ventilator 35.00 08/04/21 08:00 93 Mechanical Ventilator 35 08/04/21 08:00 49 19 157/66 (96) 94 Mechanical Ventilator 35.00 08/04/21 08:00 35.8 08/04/21 07:44 49 20 156/66 08/04/21 07:41 50 157/68 08/04/21 07:11 48 20 94 35 08/04/21 07:00 48 20 157/66 (96) 94 Mechanical Ventilator 35.00 08/04/21 07:00 49 08/04/21 06:01 56 80/47 08/04/21 06:00 52 20 153/66 (95) 94 Mechanical Ventilator 35.00 08/04/21 05:00 54 20 152/65 (94) 95 Mechanical Ventilator 35.00 08/04/21 04:00 55 20 140/66 (90) 93 Mechanical Ventilator 35.00 08/04/21 04:00 94 Mechanical Ventilator 35 08/04/21 03:47 36.5 08/04/21 03:00 53 20 145/64 (91) 93 Mechanical Ventilator 35.00 08/04/21 02:47 55 20 94 35 08/04/21 02:00 57 20 148/66 (93) 94 Mechanical Ventilator 35.00 08/04/21 01:00 61 08/04/21 01:00 61 20 129/60 (83) 94 Mechanical Ventilator 35.00 08/04/21 00:00 94 Mechanical Ventilator 35 08/04/21 00:00 59 20 125/57 (79) 92 Mechanical Ventilator 35.00 08/03/21 23:00 62 20 115/56 (75) 93 Mechanical Ventilator 35.00 08/03/21 22:22 60 20 94 35 08/03/21 22:00 58 20 110/54 (72) 95 Mechanical Ventilator 35.00 08/03/21 21:33 63 101/52 08/03/21 21:00 62 20 112/56 (74) 93 Mechanical Ventilator 35.00 08/03/21 20:00 82 20 158/74 (102) 92 Mechanical Ventilator 35.00 08/03/21 20:00 95 Mechanical Ventilator 35 08/03/21 19:47 36.1 08/03/21 19:20 90 20 94 35 08/03/21 19:00 91 08/03/21 19:00 91 20 156/68 (97) 92 Mechanical Ventilator 35.00 08/03/21 18:00 79 20 155/68 (97) 94 Mechanical Ventilator 35.00 08/03/21 17:00 71 19 123/58 (79) 94 Mechanical Ventilator 35.00 08/03/21 16:37 97 Mechanical Ventilator 35 08/03/21 16:14 64 119/59 08/03/21 16:00 70 20 128/60 (82) 93 Mechanical Ventilator 35.00 08/03/21 15:39 36.6 08/03/21 15:03 Mechanical Ventilator 35.00 08/03/21 15:00 64 19 119/59 (79) 91 Mechanical Ventilator 45.00 08/03/21 14:28 65 20 97 35 08/03/21 14:00 64 20 139/69 (92) 97 Mechanical Ventilator 45.00 08/03/21 13:00 70 20 146/70 (95) 97 Mechanical Ventilator 45.00 08/03/21 13:00 73 08/03/21 12:15 97 Mechanical Ventilator 45 08/03/21 12:05 62 20 131/65 08/03/21 12:00 36.3 08/03/21 12:00 62 19 128/64 (85) 97 Mechanical Ventilator 45.00 08/03/21 11:45 59 19 119/61 (80) 97 Mechanical Ventilator 45.00 I & O 08/04/21 07:00 Intake Total 1173 ml Output Total 1925 ml Balance -752 ml Height & Weight Height: 5'3.00" Weight: 139lbs. 0.0oz. 63.549184gq; 23.48 BMI Method:Stated General Appearance: WD/WN, Anxious, Chronically ill HEENT: PERRL/EOMI, Normal ENT Inspection, Pharynx Normal, Moist Mucous Membranes Neck: Full Range of Motion, Normal Inspection, Non Tender Respiratory: No Accessory Muscle Use, No Respiratory Distress, Decreased Breath Sounds Cardiovascular: Regular Rate, Rhythm Capillary Refill: Less Than 3 Seconds Peripheral Pulses: 1+ Dorsalis Pedis (R), 1+ Left Dors-Pedis (L) (See free text) Gastrointestinal: soft, no organomegaly Extremity: Normal Capillary Refill, Normal Inspection, Normal Range of Motion, Non Tender, No Calf Tenderness, No Pedal Edema Neurologic/Psychiatric: Alert, Oriented x3, No Motor/Sensory Deficits, Normal Mood/Affect Skin: Normal Color, Warm/Dry Lymphatic: No Adenopathy Other comments PE PER RN Results Lab Laboratory Tests 08/03/21 03:55 08/04/21 04:10 Assessment/Plan Assessment/Plan 1. Recurrent hypoxic and hypercarbic respiratory failure requiring mechanical ventilation 2. Poor nutritional status 3.Small intestinal ileus. 4. Underlying COPD. Recommendations 1. Continue mechanical ventilatory support. 2. NG tube on suction. 3. We will start on TPN. 4. Consider placing her in an LTAC. 5. DVT prophylaxis and ulcer prophylaxis 6. Continue to monitor her hemoglobin and transfuse as needed. Critical Care: Ventilator Management Time spent with patient (mins): 25 JOSE MARMOLEJO MD Aug 04, 2021 11:43
[2021-08-04] MEDS ORDERED: TPN IV SCH (18:00)
--- NOTE | 2021-08-04 20:55 | Progress Note ---
Subjective Subjective/Events-last exam Intubated and Sedated. No ON events Review of Systems Unable to complete due to intubation Objective Exam Last Set of Vital Signs Vital Signs Date Time Temp Pulse Resp B/P (MAP) Pulse Ox O2 Delivery O2 Flow Rate FiO2 08/04/21 19:54 35.9 08/04/21 19:00 64 08/04/21 19:00 Mechanical Ventilator 45.00 08/04/21 18:45 20 164/66 08/04/21 18:12 95 35 Capillary Refill : Less Than 3 Seconds I&O Intake and Output 08/04/21 00:00 Intake Total 1713 ml Output Total 4100 ml Balance -2387 ml Intake Oral 0 ml IV Total 1150 ml Tube Feeding 223 ml Other 340 ml Output Urine Total 4100 ml General: Other (Intubated and sedated) Lungs: Other (course breath sounds throughout) Heart: Regular Rate Abdomen: Soft Extremities: Other (1+ pitting edema equal bilaterally) Results/Procedures Lab Laboratory Tests 08/04/21 04:10: White Blood Count 11.9H, Red Blood Count 2.88L, Hemoglobin 7.5L, Hematocrit 23L, Mean Corpuscular Volume 81, Mean Corpuscular Hemoglobin 26, Mean Corpuscular Hemoglobin Concent 32, Red Cell Distribution Width 17.4H, Platelet Count 209, Mean Platelet Volume 11.3, Immature Granulocyte % (Auto) 1, Neutrophils (%) (Auto) 89H, Lymphocytes (%) (Auto) 5L, Monocytes (%) (Auto) 5, Eosinophils (%) (Auto) 0, Basophils (%) (Auto) 0, Neutrophils # (Auto) 10.6H, Lymphocytes # (Auto) 0.6L, Monocytes # (Auto) 0.6, Eosinophils # (Auto) 0.0, Basophils # (Auto) 0.0, Immature Granulocyte # (Auto) 0.1, Blood Gas Puncture Site LEFT RADIAL, Blood Gas Patient Temperature 36.5, Arterial Blood pH 7.47H, Arterial Blood Partial Pressure CO2 39, Arterial Blood Partial Pressure O2 69L, Arterial Blood HCO3 28H, Arterial Blood Total CO2 29.1, Arterial Blood Oxygen Saturation 95, Arterial Blood Base Excess 4.1H, Wes Test YES-POS, Blood Gas Ventilator Setting YES, Blood Gas Inspired Oxygen 35%, Sodium Level 139, Potassium Level 3.8, Chloride Level 104, Carbon Dioxide Level 24, Anion Gap 11, Blood Urea Nitrogen 20H, Creatinine 0.46L, Estimat Glomerular Filtration Rate 138, BUN/Creatinine Ratio 43, Glucose Level 239H, Calcium Level 7.9L, Corrected Calcium 8.9, Magnesium Level 1.9, Total Bilirubin 0.3, Aspartate Amino Transf (AST/SGOT) 12, Alanine Aminotransferase (ALT/SGPT) 29, Alkaline Phosphatase 38L, Total Protein 4.8L, Albumin 2.7L, Triglycerides Level 217H 08/04/21 11:08: Glucometer 197H 08/04/21 17:55: Glucometer 202H Microbiology 08/03/21 Gram Stain - Final, Resulted 08/03/21 Sputum Culture - Preliminary, Resulted Usual upper respiratory porfirio 07/24/21 Blood Culture - Final, Complete No growth 07/24/21 Urine Culture - Final, Complete Gram Pos Mixed Bacterial Porfirio Assessment/Plan Assessment/Plan (1) COPD with acute exacerbation Status: Acute Assessment & Plan: Requiring intubation, currently remains intubated, appreciate [facility] ICU assistance. Solumedrol 80 mg q6. Started on cefepime on 07/27. 08/02: SBT today, will try to extubate later today 08/03: Patient extubated yesterday afternoon and then require reintubation this AM, will work on [place] referral 08/04: Working on LTAC referral, patient will be a long wean (2) Acute and chronic respiratory failure Status: Acute (3) Diabetes Status: Chronic Assessment & Plan: Sliding scale insulin per ICU protocol. Qualifiers: Qualified Codes: E11.65 - Type 2 diabetes mellitus with hyperglycemia (4) Lactic acid acidosis Status: Resolved Assessment & Plan: Suspect secondary to COPD exacerbation and metformin, resolved. (5) Hypertension Status: Chronic Assessment & Plan: Initially hypotensive, requiring norepinephrine initially, maintaining BP at this time. (6) HX: breast cancer Status: Chronic (7) Hyperlipemia Status: Chronic (8) DVT prophylaxis Status: Acute Assessment & Plan: Enoxaparin NIKA GONZALEZ MD Aug 04, 2021 20:55
[2021-08-05] VITALS (29 sets, daily range): BP systolic 128–197; BP diastolic 64–90
[2021-08-05] MEDS: inSUlin ASPART (NovoLOG) 1 UNIT/0.01 ML (CHARGE PER UNIT) SC SCH ×5 (00:13→23:16)
[2021-08-05] MEDS: NYSTATIN ORAL SUSP 5 ML UDC PO SCH ×6 (00:13→23:08)
[2021-08-05] MEDS: methylPREDNISolone 40 MG/ML (Solu-MEDROL) VIAL IV SCH ×4 (00:13→19:56)
[2021-08-05] MEDS: fentaNYL DRIP PRE-MIX 250 ML IV SCH ×5 (00:46→23:09)
[2021-08-05] MEDS: RT-ALBUTEROL/IPRATROPIUM 3 ML (DUONEB) VIAL INH SCH ×6 (02:26→22:08)
[2021-08-05] MEDS: PROPOFOL DRIP (ICU) 100 ML IV SCH ×4 (03:35→23:09)
[2021-08-05 04:11] LABS: BASOPHILS % (AUTO) 0 % (0-10); EOSINOPHILS % (AUTO) 0 % (0-10); HEMATOCRIT 25 % (35-52); HEMOGLOBIN 7.9 g/dL (11.5-16.0); LYMPHOCYTES # (AUTO) 0.5 10^3/uL (1.0-4.0); LYMPHOCYTES % (AUTO) 4 % (12-44); MEAN CORPUSCULAR HEMOGLOBIN 26 pg (25-34); MEAN CORPUSCULAR HGB CONC 32 g/dL (32-36); MEAN CORPUSCULAR VOLUME 81 fL (80-99); MEAN PLATELET VOLUME 11.4 fL (9.0-12.2); MONOCYTES # (AUTO) 0.6 10^3/uL (0.0-1.0); MONOCYTES % (AUTO) 5 % (0-12); NEUTROPHILS # (AUTO) 10.4 10^3/uL (1.8-7.8); NEUTROPHILS % (AUTO) 89 % (42-75); PLATELET COUNT 232 10^3/uL (130-400); WHITE BLOOD COUNT 11.7 10^3/uL (4.3-11.0)
[2021-08-05] MEDS: MIDAZOLAM DRIP PRE-MIX 100 ML IV SCH ×3 (04:11→23:09)
[2021-08-05 04:12] LABS: ABG BASE EXCESS 3.2 MMOL/L (-2.5-2.5); ABG OXYGEN SATURATION 97 % (94-100); ABG PCO2 38 MMHG (35-45); ABG PH 7.46 (7.37-7.43); ABG PO2 84 MMHG (79-93); ABG TCO2 28.4 MMOL/L (21.0-31.0)
[2021-08-05 04:17] LABS: ALLENS TEST ARTLINE; INSPIRED O2 40%; PATIENT TEMP 36; VENTILATOR YES
[2021-08-05 04:21] LABS: ALBUMIN 2.8 GM/DL (3.2-4.5); POTASSIUM 3.8 MMOL/L (3.6-5.0)
[2021-08-05 04:22] LABS: CALCIUM 7.8 MG/DL (8.5-10.1); PROTHROMBIN TIME PATIENT 13.4 SEC (12.2-14.7)
[2021-08-05 04:24] LABS: TOTAL PROTEIN 4.9 GM/DL (6.4-8.2)
[2021-08-05 04:25] LABS: BILIRUBIN,TOTAL 0.3 MG/DL (0.1-1.0)
[2021-08-05 04:27] LABS: CREATININE SERUM 0.45 MG/DL (0.60-1.30); PHOSPHORUS 2.9 MG/DL (2.3-4.7)
[2021-08-05 04:30] LABS: MAGNESIUM 1.9 MG/DL (1.6-2.4)
[2021-08-05] MEDS: POTASSIUM CL 10MEQ/50ML IVPB 50 ML IV SCH (05:24)
[2021-08-05] MEDS: KCL 20 MEQ TAB (K-DUR) PO SCH (05:24)
[2021-08-05] MEDS: MAGNESIUM 1 GM/100 ML IVPB 100 ML IV SCH (05:24)
[2021-08-05] MEDS: DexMEDEtomidine 250 ML DRIP 250 ML IV SCH (06:04)
[2021-08-05] MEDS: aCETylcysteine 20% (MUCOMYST) 4 ML SOLN VIAL INH SCH ×3 (07:22→22:09)
[2021-08-05] MEDS: QUEtiapine 25 MG (SEROquel) TAB IMMEDIATE RELEASE PO SCH ×2 (07:52→19:55)
[2021-08-05] MEDS: PANTOPRAZOLE 40 MG (PROTONIX) VIAL IV SCH ×2 (07:52→19:55)
[2021-08-05] MEDS: ENOXAPARIN 40 MG/0.4 ML (LOVENOX) SYR SC SCH (07:52)
[2021-08-05] MEDS: LORATADINE (CLARITIN) 10 MG TAB PO SCH (07:52)
[2021-08-05] MEDS: DOCUSATE SODIUM 100 MG (COLACE) CAP PO SCH ×2 (07:52→19:55)
[2021-08-05] MEDS: SENNA W/DOCUSATE (SENOKOT S) TABLET PO SCH ×2 (07:53→19:55)
[2021-08-05] MEDS: SENNOSIDES 8.6 MG (SENOKOT) TAB PO SCH ×2 (07:53→19:55)
[2021-08-05] MEDS: MONTELUKAST 10 MG (SINGULAIR) TAB PO SCH (07:53)
--- NOTE | 2021-08-05 13:56 | Tele-ICU Progress Note ---
Subjective Date Seen by a Provider: Aug 05, 2021 Time Seen by a Provider: 13:56 Sepsis Event Evaluation Height, Weight, BMI Height: 5'3.00" Weight: 139lbs. 0.0oz. 63.715535cv; 23.48 BMI Method:Stated Exam Exam Patient acknowledged, consented, and participated in this virtual visit which was conducted using real time audio/video Vital Signs Date Time Temp Pulse Resp B/P (MAP) Pulse Ox O2 Delivery O2 Flow Rate FiO2 08/05/21 13:22 57 20 175/76 08/05/21 13:00 46 8 184/75 (111) 96 Mechanical Ventilator 35.00 08/05/21 12:38 51 08/05/21 12:00 50 13 174/70 (104) 95 Mechanical Ventilator 35.00 08/05/21 11:55 36.3 08/05/21 11:00 57 13 187/78 (114) 94 Mechanical Ventilator 35.00 08/05/21 10:32 Mechanical Ventilator 35.00 08/05/21 10:28 48 20 97 40 08/05/21 10:00 48 10 178/74 (108) 96 Mechanical Ventilator 40.00 08/05/21 09:00 48 11 176/73 (107) 96 Mechanical Ventilator 40.00 08/05/21 08:00 93 Mechanical Ventilator 40 08/05/21 08:00 36.0 08/05/21 08:00 49 19 187/77 (113) 94 Mechanical Ventilator 40.00 08/05/21 07:53 49 173/75 08/05/21 07:22 49 20 94 40 08/05/21 07:00 48 19 173/83 (113) 94 Mechanical Ventilator 40.00 08/05/21 07:00 49 08/05/21 06:00 50 19 176/72 (106) 95 Mechanical Ventilator 40.00 08/05/21 05:00 52 20 168/70 (102) 95 Mechanical Ventilator 40.00 08/05/21 04:00 55 19 173/72 (105) 95 Mechanical Ventilator 40.00 08/05/21 04:00 93 Mechanical Ventilator 40 08/05/21 03:32 36.0 08/05/21 03:00 54 20 162/68 (99) 93 Mechanical Ventilator 40.00 08/05/21 02:27 52 20 96 40 08/05/21 02:04 Mechanical Ventilator 40.00 08/05/21 02:00 53 20 161/69 (99) 93 Mechanical Ventilator 35.00 08/05/21 01:00 32 158/67 (97) 94 Mechanical Ventilator 35.00 08/05/21 01:00 50 08/05/21 00:07 35.9 08/05/21 00:00 53 163/69 (100) 93 Mechanical Ventilator 35.00 08/05/21 00:00 93 Mechanical Ventilator 35 08/04/21 23:00 59 167/71 (103) 91 Mechanical Ventilator 35.00 08/04/21 22:00 60 16 181/76 (111) 94 Mechanical Ventilator 35.00 08/04/21 21:50 59 20 96 35 08/04/21 21:50 Mechanical Ventilator 35.00 08/04/21 21:00 55 20 171/69 (103) 96 Mechanical Ventilator 45.00 08/04/21 20:00 52 19 165/68 (100) 94 Mechanical Ventilator 45.00 08/04/21 20:00 97 Mechanical Ventilator 45 08/04/21 19:54 35.9 08/04/21 19:00 64 08/04/21 19:00 64 20 162/66 (98) 92 Mechanical Ventilator 45.00 08/04/21 19:00 Mechanical Ventilator 45.00 08/04/21 18:45 66 20 164/66 08/04/21 18:12 58 20 95 35 08/04/21 18:00 47 19 169/67 (101) 95 Mechanical Ventilator 35.00 08/04/21 17:00 48 19 173/70 (104) 95 Mechanical Ventilator 35.00 08/04/21 16:04 49 180/73 08/04/21 16:00 35.9 08/04/21 16:00 49 19 169/69 (102) 94 Mechanical Ventilator 35.00 08/04/21 15:18 Mechanical Ventilator 35 08/04/21 15:00 52 13 172/70 (104) 94 Mechanical Ventilator 35.00 08/04/21 14:21 49 20 95 35 08/04/21 14:00 50 15 177/71 (106) 95 Mechanical Ventilator 35.00 I & O 08/05/21 07:00 Intake Total 860 ml Output Total 1300 ml Balance -440 ml Height & Weight Height: 5'3.00" Weight: 139lbs. 0.0oz. 63.624946ms; 23.48 BMI Method:Stated General Appearance: WD/WN, Anxious, Chronically ill HEENT: PERRL/EOMI, Normal ENT Inspection, Pharynx Normal, Moist Mucous Membranes Neck: Full Range of Motion, Normal Inspection, Non Tender Respiratory: No Accessory Muscle Use, No Respiratory Distress, Decreased Breath Sounds Cardiovascular: Regular Rate, Rhythm Capillary Refill: Less Than 3 Seconds Peripheral Pulses: 1+ Dorsalis Pedis (R), 1+ Left Dors-Pedis (L) (See free text) Gastrointestinal: soft, no organomegaly Extremity: Normal Capillary Refill, Normal Inspection, Normal Range of Motion, Non Tender, No Calf Tenderness, No Pedal Edema Neurologic/Psychiatric: Alert, Oriented x3, No Motor/Sensory Deficits, Normal Mood/Affect Skin: Normal Color, Warm/Dry Lymphatic: No Adenopathy Results Lab Laboratory Tests 08/04/21 04:10 08/05/21 04:00 Assessment/Plan Assessment/Plan (Tele-ICU Physician , Progress Note ) Available chart/ vitals / labs / Images reviewed Video assessment done using teleICU camera, rest of exam as per RN Discussed with RN , EXAM PER RN Events overnight : secreation in ETT Afebrile Pressors: , hemodynamically stable VENT SETTINGS and ABG reviewed candidate for SBT today REVIEWED Cardiovascular Stability / Sedation Score / FI02/PEEP / ABG / CXR hospital course 07/24) 60F admitted for COPD, ?PNA vs hypoxia/metformin causing Lactic acidosis. INTUBATED. (1) Elevated WBC (steroids?), Anemia (07/31) Dark from gt, r/o ischemic bowel. Lactate (-)// CT abdo/Lactates, unremarkable. 08/01 extubated 08/02 - REINTUBATED A/P Acute and chronic hypercarbic and hypoxic respiratory failure r - 08/02 - REINTUBATED , frailed after 254 h on bipap ( s/p previous intubation for 9 days ) - ? mucous plugging AECOPD - still significant wheezing , PAP 40 - solumedrol to cont - DECREASE DOSE nebs to cont , possible PNA -sputum for c/s and cont iv abx's ( 07/27- to repeat now sputum - secretion better , ABX finished Hypotension secondary to positive pressure ventilation as well as volume cont raction -improved bloody secretion in NG 07/28 ---->(07/31) Dark from gt, r/o ischemic bowel. Lactate (-) - CT abdo/Lactates, unremarkable - decreasing steroids - PPI to bid - hn stable STARTING TPN Lines : cetral line (Central Line Necessity Reviewed) [place]: + OG:+ Nutrition: start TF Analgesia: Anxiety/ delirium VTE Prophylaxis: rosanne proph Stress Ulcer Prophylaxis: ppi Glycemic Control: Plans in collaboration with bedside consultants and IM MDs. Discussed with RN to reach out if any questions or concerns A total of 33 minutes of critical care time was devoted to this patient today, required to treat and/or prevent further deterioration of critical care condition ( as above ) ZULEMA FNUK MD Aug 05, 2021 13:56
[2021-08-05] MEDS ORDERED: POTASSIUM CHLORIDE IV SCH ×11 (17:00)
[2021-08-05] MEDS ORDERED: SODIUM ACETATE IV SCH ×11 (17:00)
[2021-08-05] MEDS ORDERED: [UNRECOGNIZED DRUG - OTHER] IV SCH ×11 (17:00)
--- NOTE | 2021-08-05 21:54 | Progress Note ---
Subjective Subjective/Events-last exam Patient intubated and sedated, No ON events Review of Systems Unable to complete due to intubation Objective Exam Last Set of Vital Signs Vital Signs Date Time Temp Pulse Resp B/P (MAP) Pulse Ox O2 Delivery O2 Flow Rate FiO2 08/05/21 21:00 36.5 08/05/21 20:00 96 Mechanical Ventilator 40 08/05/21 19:00 50 08/05/21 19:00 40.00 08/05/21 18:29 20 Capillary Refill : Less Than 3 Seconds I&O Intake and Output 08/05/21 00:00 Intake Total 670 ml Output Total 1100 ml Balance -430 ml Intake Oral 0 ml IV Total 450 ml Other 220 ml Output Urine Total 1100 ml General: Other (Intubated and sedated) Lungs: Other (minimal air movement) Heart: Regular Rate, No Murmurs Abdomen: Normal Bowel Sounds, Soft Extremities: No Tenderness/Swelling Results/Procedures Lab Laboratory Tests 08/05/21 00:08: Glucometer 196H 08/05/21 04:00: White Blood Count 11.7H, Red Blood Count 3.04L, Hemoglobin 7.9L, Hematocrit 25L, Mean Corpuscular Volume 81, Mean Corpuscular Hemoglobin 26, Mean Corpuscular Hemoglobin Concent 32, Red Cell Distribution Width 17.2H, Platelet Count 232, Mean Platelet Volume 11.4, Immature Granulocyte % (Auto) 2, Neutrophils (%) (Auto) 89H, Lymphocytes (%) (Auto) 4L, Monocytes (%) (Auto) 5, Eosinophils (%) (Auto) 0, Basophils (%) (Auto) 0, Neutrophils # (Auto) 10.4H, Lymphocytes # (Auto) 0.5L, Monocytes # (Auto) 0.6, Eosinophils # (Auto) 0.0, Basophils # (Auto) 0.0, Immature Granulocyte # (Auto) 0.2H, Prothrombin Time 13.4, INR Comment 1.0, Blood Gas Puncture Site LEFT RADIAL, Blood Gas Patient Temperature 36, Arterial Blood pH 7.46H, Arterial Blood Partial Pressure CO2 38, Arterial Blood Partial Pressure O2 84, Arterial Blood HCO3 27, Arterial Blood Total CO2 28.4, Arterial Blood Oxygen Saturation 97, Arterial Blood Base Excess 3.2H, Wes Test ARTLINE, Blood Gas Ventilator Setting YES, Blood Gas Inspired Oxygen 40%, Sodium Level 139, Potassium Level 3.8, Chloride Level 106, Carbon Dioxide Level 23, Anion Gap 10, Blood Urea Nitrogen 16, Creatinine 0.45L, Estimat Glomerular Filtration Rate 142, BUN/Creatinine Ratio 36, Glucose Level 219H, Calcium Level 7.8L, Corrected Calcium 8.8, Phosphorus Level 2.9, Magnesium Level 1.9, Iron Level 10L, Total Iron Binding Capacity 230L, Unsaturated Iron Binding Capacity 220, Transferrin % Saturation 4L, Total Bilirubin 0.3, Aspartate Amino Transf (AST/SGOT) 11, Alanine Aminotransferase (ALT/SGPT) 26, Alkaline Phosphatase 38L, Total Protein 4.9L, Albumin 2.8L, Prealbumin 18.4, Triglycerides Level 271H 08/05/21 12:57: Glucometer 196H 08/05/21 17:21: Glucometer 239H Microbiology 08/03/21 Gram Stain - Final, Complete 08/03/21 Sputum Culture - Final, Complete Usual upper respiratory porfirio 07/24/21 Blood Culture - Final, Complete No growth 07/24/21 Urine Culture - Final, Complete Gram Pos Mixed Bacterial Porfirio Assessment/Plan Assessment/Plan (1) Acute and chronic respiratory failure Status: Acute (2) COPD with acute exacerbation Status: Acute Assessment & Plan: Requiring intubation, currently remains intubated, appreciate [facility] ICU assistance. Solumedrol 80 mg q6. Started on cefepime on 07/27. 08/02: SBT today, will try to extubate later today 08/03: Patient extubated yesterday afternoon and then require reintubation this AM, will work on [place] referral 08/04: Working on LTAC referral, patient will be a long wean 08/05: Patient unable to tolerated SBT, working on LTAC (3) Diabetes Status: Chronic Assessment & Plan: Sliding scale insulin per ICU protocol. Qualifiers: Qualified Codes: E11.65 - Type 2 diabetes mellitus with hyperglycemia (4) Lactic acid acidosis Status: Resolved Assessment & Plan: Suspect secondary to COPD exacerbation and metformin, resolved. (5) Hypertension Status: Chronic Assessment & Plan: Initially hypotensive, requiring norepinephrine initially, maintaining BP at this time. (6) HX: breast cancer Status: Chronic (7) Hyperlipemia Status: Chronic (8) DVT prophylaxis Status: Acute Assessment & Plan: Enoxaparin NIKA GONZALEZ MD Aug 05, 2021 21:54
[2021-08-05] MEDS ORDERED: niCARdipine IV FOR DRIP 50 MG KIT ONE (22:04)
[2021-08-05] MEDS ORDERED: NS (IVPB) 250 ML ONE (22:05)
[2021-08-05] MEDS: niCARdipine IV 50 MG in NS (IVPB) 230 ML IV PRN (22:10)
[2021-08-06] VITALS (30 sets, daily range): BP systolic 98–185; BP diastolic 52–89
[2021-08-06] MEDS: RT-ALBUTEROL/IPRATROPIUM 3 ML (DUONEB) VIAL INH SCH ×6 (02:44→22:26)
[2021-08-06] MEDS ORDERED: niCARdipine IV FOR DRIP 50 MG KIT ONE (03:37)
[2021-08-06] MEDS ORDERED: NS (IVPB) 250 ML ONE (03:37)
[2021-08-06] MEDS: fentaNYL DRIP PRE-MIX 250 ML IV SCH ×7 (03:41→23:19)
[2021-08-06] MEDS: DexMEDEtomidine 250 ML DRIP 250 ML IV SCH ×2 (03:41→13:01)
[2021-08-06 03:57] LABS: ABG BASE EXCESS 3.4 MMOL/L (-2.5-2.5); ABG OXYGEN SATURATION 94 % (94-100); ABG PCO2 41 MMHG (35-45); ABG PH 7.44 (7.37-7.43); ABG PO2 72 MMHG (79-93); ABG TCO2 28.6 MMOL/L (21.0-31.0)
[2021-08-06 04:00] LABS: BASOPHILS # (AUTO) 0.1 10^3/uL (0.0-0.1); BASOPHILS % (AUTO) 0 % (0-10); EOSINOPHILS % (AUTO) 0 % (0-10); HEMATOCRIT 29 % (35-52); HEMOGLOBIN 9.4 g/dL (11.5-16.0); LYMPHOCYTES # (AUTO) 1.4 10^3/uL (1.0-4.0); LYMPHOCYTES % (AUTO) 5 % (12-44); MEAN CORPUSCULAR HEMOGLOBIN 26 pg (25-34); MEAN CORPUSCULAR HGB CONC 32 g/dL (32-36); MEAN CORPUSCULAR VOLUME 81 fL (80-99); MEAN PLATELET VOLUME 11.3 fL (9.0-12.2); MONOCYTES # (AUTO) 1.5 10^3/uL (0.0-1.0); MONOCYTES % (AUTO) 5 % (0-12); NEUTROPHILS # (AUTO) 24.6 10^3/uL (1.8-7.8); NEUTROPHILS % (AUTO) 88 % (42-75); PLATELET COUNT 368 10^3/uL (130-400)
[2021-08-06 04:01] LABS: ALLENS TEST ARTLINE; INSPIRED O2 40%; VENTILATOR YES
[2021-08-06 04:02] LABS: PATIENT TEMP 37
[2021-08-06 04:10] LABS: POTASSIUM 3.9 MMOL/L (3.6-5.0)
[2021-08-06 04:12] LABS: CALCIUM 8.3 MG/DL (8.5-10.1)
[2021-08-06 04:16] LABS: CREATININE SERUM 0.49 MG/DL (0.60-1.30)
[2021-08-06] MEDS: PROPOFOL DRIP (ICU) 100 ML IV SCH ×4 (04:21→23:35)
[2021-08-06] MEDS: POTASSIUM CL 10MEQ/50ML IVPB 50 ML IV SCH (05:15)
[2021-08-06] MEDS: KCL 20 MEQ TAB (K-DUR) PO SCH (05:16)
[2021-08-06] MEDS: MAGNESIUM 1 GM/100 ML IVPB 100 ML IV SCH (05:16)
[2021-08-06] MEDS: NYSTATIN ORAL SUSP 5 ML UDC PO SCH ×4 (05:26→23:35)
[2021-08-06] MEDS: inSUlin ASPART (NovoLOG) 1 UNIT/0.01 ML (CHARGE PER UNIT) SC SCH ×4 (05:26→23:35)
[2021-08-06] MEDS: methylPREDNISolone 40 MG/ML (Solu-MEDROL) VIAL IV SCH ×3 (05:26→20:04)
[2021-08-06 06:35] LABS: LYMPHOCYTES % (MANUAL) 5 %; MICROCYTOSIS SLIGHT; MONOCYTES % (MANUAL) 3 %; NEUTROPHILS % (MANUAL) 92 %; POIKILOCYTOSIS SLIGHT
[2021-08-06] MEDS: aCETylcysteine 20% (MUCOMYST) 4 ML SOLN VIAL INH SCH ×3 (07:33→22:26)
[2021-08-06] MEDS: ENOXAPARIN 40 MG/0.4 ML (LOVENOX) SYR SC SCH (07:36)
[2021-08-06] MEDS: PANTOPRAZOLE 40 MG (PROTONIX) VIAL IV SCH ×2 (07:36→20:04)
[2021-08-06] MEDS: SENNA W/DOCUSATE (SENOKOT S) TABLET PO SCH ×2 (07:37→20:04)
[2021-08-06] MEDS: SENNOSIDES 8.6 MG (SENOKOT) TAB PO SCH ×2 (07:37→20:04)
[2021-08-06] MEDS: MONTELUKAST 10 MG (SINGULAIR) TAB PO SCH (07:37)
[2021-08-06] MEDS: QUEtiapine 25 MG (SEROquel) TAB IMMEDIATE RELEASE PO SCH ×2 (07:37→20:04)
[2021-08-06] MEDS: LORATADINE (CLARITIN) 10 MG TAB PO SCH (07:37)
[2021-08-06] MEDS: DOCUSATE SODIUM 100 MG (COLACE) CAP PO SCH ×2 (08:29→20:04)
[2021-08-06] MEDS: MIDAZOLAM DRIP PRE-MIX 100 ML IV SCH ×2 (09:09→18:19)
[2021-08-06] MEDS: niCARdipine IV 50 MG in NS (IVPB) 230 ML IV PRN (09:35)
--- NOTE | 2021-08-06 10:43 | Tele-ICU Progress Note ---
Subjective Date Seen by a Provider: Aug 06, 2021 Time Seen by a Provider: 10:43 Sepsis Event Evaluation Height, Weight, BMI Height: 5'3.00" Weight: 139lbs. 0.0oz. 63.354358ds; 23.48 BMI Method:Stated Exam Exam Patient acknowledged, consented, and participated in this virtual visit which was conducted using real time audio/video Vital Signs Date Time Temp Pulse Resp B/P (MAP) Pulse Ox O2 Delivery O2 Flow Rate FiO2 08/06/21 10:00 84 10 139/63 (88) 93 Mechanical Ventilator 40.00 08/06/21 09:37 107 185/88 08/06/21 09:09 107 34 185/88 08/06/21 09:00 105 136/83 (100) 92 Mechanical Ventilator 40.00 08/06/21 08:00 107 34 185/88 (120) 95 Mechanical Ventilator 40.00 08/06/21 08:00 36.2 08/06/21 07:34 85 20 94 40 08/06/21 07:00 88 35 157/77 (103) 95 Mechanical Ventilator 40.00 08/06/21 07:00 91 08/06/21 06:00 73 20 105/59 (74) 91 Mechanical Ventilator 40.00 08/06/21 05:00 94 16 118/63 (81) 91 Mechanical Ventilator 40.00 08/06/21 04:21 118/82 08/06/21 04:00 92 Mechanical Ventilator 40 08/06/21 04:00 99 19 129/67 (87) 93 Mechanical Ventilator 40.00 08/06/21 03:48 37.0 Mechanical Ventilator 40.00 08/06/21 03:41 104 141/89 08/06/21 03:00 108 20 158/84 (108) 94 Mechanical Ventilator 40.00 08/06/21 02:44 104 20 93 40 08/06/21 02:00 100 25 158/79 (105) 93 Mechanical Ventilator 40.00 08/06/21 01:00 94 25 144/81 (102) 93 Mechanical Ventilator 40.00 08/06/21 01:00 94 08/06/21 00:30 94 Mechanical Ventilator 40 08/06/21 00:00 78 19 133/64 (87) 93 Mechanical Ventilator 40.00 08/05/21 23:09 60 197/90 08/05/21 23:09 60 20 197/90 08/05/21 23:00 74 19 128/64 (85) 93 Mechanical Ventilator 40.00 08/05/21 22:48 36.5 08/05/21 22:11 60 20 99 40 08/05/21 22:00 46 19 169/74 (105) 97 Mechanical Ventilator 40.00 08/05/21 21:00 49 20 162/77 (105) 97 Mechanical Ventilator 40.00 08/05/21 21:00 36.5 08/05/21 20:00 49 19 159/72 (101) 96 Mechanical Ventilator 40.00 08/05/21 20:00 96 Mechanical Ventilator 40 08/05/21 19:00 50 08/05/21 19:00 Mechanical Ventilator 40.00 08/05/21 19:00 50 19 155/69 (97) 96 Mechanical Ventilator 40.00 08/05/21 18:29 50 20 97 40 08/05/21 18:00 51 19 177/77 (110) 96 Mechanical Ventilator 40.00 08/05/21 17:50 50 174/77 08/05/21 17:00 50 19 174/77 (109) 96 Mechanical Ventilator 40.00 08/05/21 16:24 93 Mechanical Ventilator 40 08/05/21 16:00 36.2 08/05/21 16:00 52 20 176/77 (110) 95 Mechanical Ventilator 40.00 08/05/21 15:00 53 19 179/78 (111) 95 Mechanical Ventilator 40.00 08/05/21 14:19 Mechanical Ventilator 40.00 08/05/21 14:09 56 20 96 45 08/05/21 14:00 53 20 178/77 (110) 96 Mechanical Ventilator 35.00 08/05/21 13:22 57 20 175/76 08/05/21 13:00 46 8 184/75 (111) 96 Mechanical Ventilator 35.00 08/05/21 12:38 51 08/05/21 12:24 93 Mechanical Ventilator 40 08/05/21 12:00 50 13 174/70 (104) 95 Mechanical Ventilator 35.00 08/05/21 11:55 36.3 08/05/21 11:00 57 13 187/78 (114) 94 Mechanical Ventilator 35.00 I & O 08/06/21 07:00 Intake Total 1245 ml Output Total 5175 ml Balance -3930 ml Height & Weight Height: 5'3.00" Weight: 139lbs. 0.0oz. 63.087381ku; 23.48 BMI Method:Stated General Appearance: WD/WN, Anxious, Chronically ill HEENT: PERRL/EOMI, Normal ENT Inspection, Pharynx Normal, Moist Mucous Membranes Neck: Full Range of Motion, Normal Inspection, Non Tender Respiratory: No Accessory Muscle Use, No Respiratory Distress, Decreased Breath Sounds Cardiovascular: Regular Rate, Rhythm Capillary Refill: Less Than 3 Seconds Peripheral Pulses: 1+ Dorsalis Pedis (R), 1+ Left Dors-Pedis (L) (See free text) Gastrointestinal: soft, no organomegaly Extremity: Normal Capillary Refill, Normal Inspection, Normal Range of Motion, Non Tender, No Calf Tenderness, No Pedal Edema Neurologic/Psychiatric: Alert, Oriented x3, No Motor/Sensory Deficits, Normal Mood/Affect Skin: Normal Color, Warm/Dry Lymphatic: No Adenopathy Results Lab Laboratory Tests 08/05/21 04:00 08/06/21 03:45 Assessment/Plan Assessment/Plan (Tele-ICU Physician , Progress Note ) Available chart/ vitals / labs / Images reviewed Video assessment done using teleICU camera, rest of exam as per RN Discussed with RN , EXAM PER RN Events overnight : secreation in ETT Afebrile Pressors: , hemodynamically stable VENT SETTINGS and ABG reviewed candidate for SBT today REVIEWED Cardiovascular Stability / Sedation Score / FI02/PEEP / ABG / CXR hospital course 07/24) 60F admitted for COPD, ?PNA vs hypoxia/metformin causing Lactic acidosis. INTUBATED. (1) Elevated WBC (steroids?), Anemia (07/31) Dark from gt, r/o ischemic bowel. Lactate (-)// CT abdo/Lactates, unremarkable. 08/01 extubated 08/02 - REINTUBATED A/P Acute and chronic hypercarbic and hypoxic respiratory failure r - 08/02 - REINTUBATED , frailed after 254 h on bipap ( s/p previous intubation for 9 days ) - ? mucous plugging AECOPD - still significant wheezing , PAP 40 - solumedrol to cont - DECREASE DOSE tomorrow nebs to cont , possible PNA -sputum for c/s and cont iv abx's ( 1/4- to repeat now sputum - secretion better , ABX finished Hypotension today 08/06 - - probably volume contraction with >2L urine output last night -hold cardene - follow Hypertension - on cardene gtt , can not take po bloody secretion in NG 07/28 ---->(07/31) Dark from gt, r/o ischemic bowel. Lactate (-) - CT abdo/Lactates, unremarkable - decreasing steroids - PPI to bid - hn stable STARTING TPN 08/06 Lines : cetral line (Central Line Necessity Reviewed) [place]: + OG:+ Nutrition: start TF Analgesia: Anxiety/ delirium VTE Prophylaxis: rosanne proph Stress Ulcer Prophylaxis: ppi Glycemic Control: Plans in collaboration with bedside consultants and IM MDs. Discussed with RN to reach out if any questions or concerns A total of 33 minutes of critical care time was devoted to this patient today, required to treat and/or prevent further deterioration of critical care conditi on ( as above ) ZULEMA FUNK MD Aug 06, 2021 10:43
--- NOTE | 2021-08-06 11:07 | Diagnostic Imaging Report ---
INDICATION: Abdominal distention. TIME OF EXAM: 10:43 AM Correlation is made with prior radiograph from 08/04/2021. NG tube is located within the stomach. The degree of small bowel distention has improved when compared with study 2 days earlier. There is mild gaseous distention to the colon on today's study. There is no bowel wall thickening, pneumatosis or free air detected. No pathologic calcifications are seen. IMPRESSION: Overall improvement in the moderate small bowel gaseous distention when compared with study 2 days earlier. Dictated by: Dictated on workstation # [id number]
[2021-08-06] MEDS ORDERED: SODIUM ACETATE IV SCH ×11 (17:00)
[2021-08-06] MEDS ORDERED: POTASSIUM CHLORIDE IV SCH ×11 (17:00)
[2021-08-06] MEDS ORDERED: [UNRECOGNIZED DRUG - OTHER] IV SCH ×11 (17:00)
--- NOTE | 2021-08-06 18:39 | Progress Note ---
Subjective Subjective/Events-last exam Intubated and Sedated. No ON events Review of Systems Unable to complete due to intubation Objective Exam Last Set of Vital Signs Vital Signs Date Time Temp Pulse Resp B/P (MAP) Pulse Ox O2 Delivery O2 Flow Rate FiO2 08/06/21 18:19 50 21 131/61 08/06/21 18:00 97 Mechanical Ventilator 40.00 08/06/21 16:04 40 08/06/21 16:00 36.2 Capillary Refill : Less Than 3 Seconds I&O Intake and Output 08/06/21 00:00 Intake Total 1245 ml Output Total 2150 ml Balance -905 ml Intake Oral 0 ml IV Total 1185 ml Other 60 ml Output Urine Total 2150 ml General: Other (Intubated and sedated) Lungs: Other (diminished breath sounds with crackles) Heart: Regular Rate, No Murmurs Abdomen: Soft Extremities: Other (2+ pitting edema equal bilaterally) Skin: No Rashes Results/Procedures Lab Laboratory Tests 08/06/21 03:42: Blood Gas Puncture Site ARTLINE, Blood Gas Patient Temperature 37, Arterial Blood pH 7.44H, Arterial Blood Partial Pressure CO2 41, Arterial Blood Partial Pressure O2 72L, Arterial Blood HCO3 27, Arterial Blood Total CO2 28.6, Arterial Blood Oxygen Saturation 94, Arterial Blood Base Excess 3.4H, Wes Test ARTLINE, Blood Gas Ventilator Setting YES, Blood Gas Inspired Oxygen 40% 08/06/21 03:45: White Blood Count 28.0H, Red Blood Count 3.60L, Hemoglobin 9.4L, Hematocrit 29L, Mean Corpuscular Volume 81, Mean Corpuscular Hemoglobin 26, Mean Corpuscular Hemoglobin Concent 32, Red Cell Distribution Width 17.7H, Platelet Count 368, Mean Platelet Volume 11.3, Immature Granulocyte % (Auto) 2, Neutrophils (%) (Auto) 88H, Lymphocytes (%) (Auto) 5L, Monocytes (%) (Auto) 5, Eosinophils (%) (Auto) 0, Basophils (%) (Auto) 0, Neutrophils # (Auto) 24.6H, Lymphocytes # (Auto) 1.4, Monocytes # (Auto) 1.5H, Eosinophils # (Auto) 0.0, Basophils # (Auto) 0.1, Immature Granulocyte # (Auto) 0.4H, Neutrophils % (Manual) 92, Lymphocytes % (Manual) 5, Monocytes % (Manual) 3, Poikilocytosis SLIGHT, Basophilic Stippling SLIGHT, Microcytosis SLIGHT, Sodium Level 138, Potassium Level 3.9, Chloride Level 105, Carbon Dioxide Level 23, Anion Gap 10, Blood Urea Nitrogen 16, Creatinine 0.49L, Estimat Glomerular Filtration Rate 107, BUN/Creatinine Ratio 33, Glucose Level 247H, Calcium Level 8.3L, Phosphorus Level 3.0, Magnesium Level 2.0, Triglycerides Level 265H 08/06/21 11:37: Glucometer 198H 08/06/21 17:17: Glucometer 222H Microbiology 08/03/21 Gram Stain - Final, Complete 08/03/21 Sputum Culture - Final, Complete Usual upper respiratory porfirio 07/24/21 Blood Culture - Final, Complete No growth 07/24/21 Urine Culture - Final, Complete Gram Pos Mixed Bacterial Porfirio Assessment/Plan Assessment/Plan (1) Acute and chronic respiratory failure Status: Acute (2) COPD with acute exacerbation Status: Acute Assessment & Plan: Requiring intubation, currently remains intubated, appreciate [facility] ICU assistance. Solumedrol 80 mg q6. Started on cefepime on 07/27. 08/02: SBT today, will try to extubate later today 08/03: Patient extubated yesterday afternoon and then require reintubation this AM, will work on [place] referral 08/04: Working on LTAC referral, patient will be a long wean 08/05: Patient unable to tolerated SBT, working on LTAC 08/06: Patient has had insurance approval for LTAC, LTAC w/o beds due to staffing at this time, possible transfer on Monday per (3) Diabetes Status: Chronic Assessment & Plan: Sliding scale insulin per ICU protocol. Qualifiers: Qualified Codes: E11.65 - Type 2 diabetes mellitus with hyperglycemia (4) Lactic acid acidosis Status: Resolved Assessment & Plan: Suspect secondary to COPD exacerbation and metformin, resolved. (5) Hypertension Status: Chronic Assessment & Plan: Initially hypotensive, requiring norepinephrine initially, maintaining BP at this time. 08/06: Patient has had labile blood pressures (6) HX: breast cancer Status: Chronic (7) Hyperlipemia Status: Chronic (8) DVT prophylaxis Status: Acute Assessment & Plan: Enoxaparin NIKA GONZALEZ MD Aug 06, 2021 18:39
[2021-08-07] VITALS (30 sets, daily range): BP systolic 107–193; BP diastolic 50–87
[2021-08-07] MEDS: RT-ALBUTEROL/IPRATROPIUM 3 ML (DUONEB) VIAL INH SCH ×6 (02:08→22:30)
[2021-08-07] MEDS: fentaNYL DRIP PRE-MIX 250 ML IV SCH ×7 (02:24→22:00)
[2021-08-07 04:23] LABS: ABG BASE EXCESS 3.1 MMOL/L (-2.5-2.5); ABG OXYGEN SATURATION 98 % (94-100); ABG PCO2 38 MMHG (35-45); ABG PH 7.46 (7.37-7.43); ABG PO2 88 MMHG (79-93)
[2021-08-07 04:26] LABS: BASOPHILS % (AUTO) 0 % (0-10); EOSINOPHILS % (AUTO) 0 % (0-10); HEMATOCRIT 23 % (35-52); HEMOGLOBIN 7.4 g/dL (11.5-16.0); LYMPHOCYTES # (AUTO) 1.3 10^3/uL (1.0-4.0); LYMPHOCYTES % (AUTO) 11 % (12-44); MEAN CORPUSCULAR HEMOGLOBIN 26 pg (25-34); MEAN CORPUSCULAR HGB CONC 32 g/dL (32-36); MEAN CORPUSCULAR VOLUME 81 fL (80-99); MEAN PLATELET VOLUME 11.5 fL (9.0-12.2); MONOCYTES # (AUTO) 0.6 10^3/uL (0.0-1.0); MONOCYTES % (AUTO) 6 % (0-12); NEUTROPHILS # (AUTO) 9.4 10^3/uL (1.8-7.8); NEUTROPHILS % (AUTO) 82 % (42-75); PLATELET COUNT 231 10^3/uL (130-400); WHITE BLOOD COUNT 11.4 10^3/uL (4.3-11.0)
[2021-08-07 04:28] LABS: ALLENS TEST ARTLINE; INSPIRED O2 30%; PATIENT TEMP 36.4; VENTILATOR YES
[2021-08-07 04:36] LABS: POTASSIUM 4.1 MMOL/L (3.6-5.0)
[2021-08-07 04:37] LABS: CALCIUM 7.9 MG/DL (8.5-10.1)
[2021-08-07] MEDS: POTASSIUM CL 10MEQ/50ML IVPB 50 ML IV SCH (04:40)
[2021-08-07] MEDS: KCL 20 MEQ TAB (K-DUR) PO SCH (04:40)
[2021-08-07 04:42] LABS: CREATININE SERUM 0.44 MG/DL (0.60-1.30); PHOSPHORUS 3.7 MG/DL (2.3-4.7)
[2021-08-07] MEDS: NYSTATIN ORAL SUSP 5 ML UDC PO SCH ×3 (04:53→18:40)
[2021-08-07] MEDS: methylPREDNISolone 40 MG/ML (Solu-MEDROL) VIAL IV SCH ×2 (04:53→18:40)
[2021-08-07] MEDS: PROPOFOL DRIP (ICU) 100 ML IV SCH ×4 (04:53→23:11)
[2021-08-07] MEDS: inSUlin ASPART (NovoLOG) 1 UNIT/0.01 ML (CHARGE PER UNIT) SC SCH ×3 (04:53→18:50)
[2021-08-07] MEDS: MIDAZOLAM DRIP PRE-MIX 100 ML IV SCH ×3 (04:54→22:28)
[2021-08-07] MEDS: MAGNESIUM 1 GM/100 ML IVPB 100 ML IV SCH (04:57)
[2021-08-07] MEDS: aCETylcysteine 20% (MUCOMYST) 4 ML SOLN VIAL INH SCH ×3 (06:59→22:30)
[2021-08-07] MEDS: PANTOPRAZOLE 40 MG (PROTONIX) VIAL IV SCH ×2 (08:55→20:55)
[2021-08-07] MEDS: QUEtiapine 25 MG (SEROquel) TAB IMMEDIATE RELEASE PO SCH ×2 (08:56→20:55)
[2021-08-07] MEDS: LORATADINE (CLARITIN) 10 MG TAB PO SCH (08:56)
[2021-08-07] MEDS: SENNA W/DOCUSATE (SENOKOT S) TABLET PO SCH ×2 (08:56→20:55)
[2021-08-07] MEDS: DOCUSATE SODIUM 10 MG/ML 10 ML UDC (COLACE) PO SCH ×2 (08:56→20:55)
[2021-08-07] MEDS: MONTELUKAST 10 MG (SINGULAIR) TAB PO SCH (08:56)
[2021-08-07] MEDS: SENNOSIDES 8.6 MG (SENOKOT) TAB PO SCH ×2 (09:02→20:56)
--- NOTE | 2021-08-07 10:55 | Tele-ICU Progress Note ---
Subjective Date Seen by a Provider: Aug 07, 2021 Time Seen by a Provider: 10:55 Sepsis Event Evaluation Height, Weight, BMI Height: 5'3.00" Weight: 139lbs. 0.0oz. [id number]; 23.48 BMI Method:Stated Exam Exam Patient acknowledged, consented, and participated in this virtual visit which was conducted using real time audio/video Vital Signs Date Time Temp Pulse Resp B/P (MAP) Pulse Ox O2 Delivery O2 Flow Rate FiO2 08/07/21 10:00 46 20 125/63 (83) 96 Mechanical Ventilator 40.00 08/07/21 09:00 47 20 136/66 (89) 94 Mechanical Ventilator 40.00 08/07/21 08:00 35.6 08/07/21 08:00 52 19 126/59 (81) 91 Mechanical Ventilator 40.00 08/07/21 07:47 92 Mechanical Ventilator 40 08/07/21 07:24 Mechanical Ventilator 40.00 08/07/21 07:00 56 08/07/21 07:00 50 20 135/63 (87) 92 Mechanical Ventilator 30.00 08/07/21 06:59 49 20 91 30 08/07/21 06:00 49 25 171/79 (109) 94 Mechanical Ventilator 30.00 08/07/21 05:00 47 19 172/72 (105) 94 Mechanical Ventilator 30.00 08/07/21 04:54 48 20 136/60 08/07/21 04:53 48 136/60 08/07/21 04:17 92 Mechanical Ventilator 30 08/07/21 04:00 51 20 163/69 (100) 93 Mechanical Ventilator 30.00 08/07/21 03:00 48 20 136/60 (85) 93 Mechanical Ventilator 30.00 08/07/21 02:25 36.4 Mechanical Ventilator 30.00 08/07/21 02:08 80 20 98 30 08/07/21 02:00 52 20 143/60 (87) 91 Mechanical Ventilator 30.00 08/07/21 01:00 70 08/07/21 01:00 69 20 136/60 (85) 92 Mechanical Ventilator 30.00 08/07/21 00:00 74 17 193/87 (122) 93 Mechanical Ventilator 30.00 08/06/21 23:59 91 Mechanical Ventilator 30 08/06/21 23:35 51 183/81 08/06/21 23:20 Mechanical Ventilator 30.00 08/06/21 23:00 46 20 143/66 (91) 93 Mechanical Ventilator 35.00 08/06/21 22:53 36.4 08/06/21 22:27 51 20 100 35 08/06/21 22:00 47 20 157/73 (101) 97 Mechanical Ventilator 35.00 08/06/21 21:00 44 20 146/69 (94) 97 Mechanical Ventilator 35.00 08/06/21 20:00 92 Mechanical Ventilator 40 08/06/21 20:00 47 19 129/66 (87) 97 Mechanical Ventilator 35.00 08/06/21 19:37 36.3 08/06/21 19:07 47 20 99 40 08/06/21 19:00 49 28 130/60 (83) 98 Mechanical Ventilator 40.00 08/06/21 19:00 Mechanical Ventilator 40.00 08/06/21 19:00 49 08/06/21 18:19 50 21 131/61 08/06/21 18:00 50 21 131/61 (84) 97 Mechanical Ventilator 40.00 08/06/21 17:35 56 118/52 08/06/21 17:00 56 13 118/52 (74) 95 Mechanical Ventilator 40.00 08/06/21 16:04 93 Mechanical Ventilator 40 08/06/21 16:00 53 20 118/59 (78) 96 Mechanical Ventilator 40.00 08/06/21 16:00 36.2 08/06/21 15:00 64 19 153/73 (99) 99 Mechanical Ventilator 40.00 08/06/21 14:23 49 20 98 40 08/06/21 14:00 49 19 100/56 (71) 98 Mechanical Ventilator 40.00 08/06/21 13:01 56 98/53 08/06/21 13:00 58 08/06/21 13:00 51 21 112/56 (74) 98 Mechanical Ventilator 40.00 08/06/21 12:00 56 22 98/53 (68) 96 Mechanical Ventilator 40.00 08/06/21 12:00 36.4 08/06/21 12:00 93 Mechanical Ventilator 40 08/06/21 11:13 86 20 96 40 08/06/21 11:00 92 164/81 (108) 96 Mechanical Ventilator 40.00 I & O 08/07/21 07:00 Intake Total 4404.15 ml Output Total 3900 ml Balance 504.15 ml Height & Weight Height: 5'3.00" Weight: 139lbs. 0.0oz. 63.178496cl; 23.48 BMI Method:Stated General Appearance: WD/WN, Anxious, Chronically ill HEENT: PERRL/EOMI, Normal ENT Inspection, Pharynx Normal, Moist Mucous Membranes Neck: Full Range of Motion, Normal Inspection, Non Tender Respiratory: No Accessory Muscle Use, No Respiratory Distress, Decreased Breath Sounds Cardiovascular: Regular Rate, Rhythm Capillary Refill: Less Than 3 Seconds Peripheral Pulses: 1+ Dorsalis Pedis (R), 1+ Left Dors-Pedis (L) (See free text) Gastrointestinal: soft, no organomegaly Extremity: Normal Capillary Refill, Normal Inspection, Normal Range of Motion, Non Tender, No Calf Tenderness, No Pedal Edema Neurologic/Psychiatric: Alert, Oriented x3, No Motor/Sensory Deficits, Normal Mood/Affect Skin: Normal Color, Warm/Dry Lymphatic: No Adenopathy Results Lab Laboratory Tests 08/06/21 03:45 08/07/21 04:10 Assessment/Plan Assessment/Plan Assessment/Plan (Tele-ICU Physician , Progress Note ) Available chart/ vitals / labs / Images reviewed Video assessment done using teleICU camera, rest of exam as per RN Discussed with RN , EXAM PER RN Events overnight : secreation in ETT Afebrile Pressors: , hemodynamically stable VENT SETTINGS and ABG reviewed candidate for SBT today REVIEWED Cardiovascular Stability / Sedation Score / FI02/PEEP / ABG / CXR hospital course 07/24) 60F admitted for COPD, ?PNA vs hypoxia/metformin causing Lactic acidosis. INTUBATED. (12) Elevated WBC (steroids?), Anemia (07/31) Dark from gt, r/o ischemic bowel. Lactate (-)// CT abdo/Lactates, unremarkable. 08/01 extubated 08/02 - REINTUBATED A/P Acute and chronic hypercarbic and hypoxic respiratory failure r - 08/02 - REINTUBATED , frailed after 254 h on bipap ( s/p previous intubation for 9 days ) - ? mucous plugging - secretioons better AECOPD - still significant wheezing , PAP 40 - solumedrol to cont - DECREASE DOSE today nebs to cont , possible PNA -sputum for c/s and cont iv abx's ( 07/27- to repeat now sputum - secretion better , ABX finished Hypotension today 08/06 - - probably volume contraction with >2L urine output last night Hypertension - on cardene gtt , can not take po bloody secretion in NG 07/28 ---->(07/31) Dark from gt, r/o ischemic bowel. Lactate (-) - CT abdo/Lactates, unremarkable - decreasing steroids - PPI to bid - hn stable STARTING TPN 08/06 - kub improving Lines : cetral line (Central Line Necessity Reviewed) [place]: + OG:+ Nutrition: start TF Analgesia: Anxiety/ delirium VTE Prophylaxis: rosanne proph Stress Ulcer Prophylaxis: ppi Glycemic Control: Plans in collaboration with bedside consultants and IM MDs. Discussed with RN to reach out if any questions or concerns A total of 33 minutes of critical care time was devoted to this patient today, required to treat and/or prevent further deterioration of critical care condition ( as above ) ZULEMA FUNK MD Aug 07, 2021 10:55
[2021-08-07] MEDS: ENOXAPARIN 40 MG/0.4 ML (LOVENOX) SYR SC SCH (11:42)
--- NOTE | 2021-08-07 12:14 | Progress Note - Hospitalist ---
Subjective HPI/CC On Admission Date Seen by Provider: Aug 07, 2021 Time Seen by Provider: 11:45 CC: Respiratory failure HPI: This is a 60yoWF w/h/o COPD on home O2 13/02, current smoker, DM on Metformin, HTN, anxiety and depression who presents to the [facility] from ER with dyspnea and was found to have acute on chronic respiratory failure and hypercapnia and hypoxemia on ABG meeting criteria for biPAP but moved to ICU when respiratory failure noted and more elevated lactic acidosis likely due to Metformin and hypoxemia and work of breathing. Patient denies pain. Lives alone in trailer beside her daughter. Updated EICU on need to move to ICU. Subjective/Events-last exam Patient sedateD on mechanical ventilation appears to be in no acute distress currently not overbreathing vent rate. Objective Exam Vital Signs Vital Signs Date Time Temp Pulse Resp B/P (MAP) Pulse Ox O2 Delivery O2 Flow Rate FiO2 08/07/21 16:23 95 Mechanical Ventilator 35 08/07/21 16:00 35.4 08/07/21 16:00 69 20 154/72 (99) 35.00 Capillary Refill : Less Than 3 Seconds Respiratory: Lungs Clear (Anteriorly), No Accessory Muscle Use, No Respiratory Distress Cardiovascular: Regular Rate, Rhythm, No Gallop, No Murmur, Bradycardia Results/Procedures Lab Laboratory Tests 08/07/21 04:10 Patient resulted labs reviewed. Assessment/Plan Assessment and Plan Assess & Plan/Chief Complaint (1) Acute and chronic respiratory failure Status: Acute (2) COPD with acute exacerbation Status: Acute Assessment & Plan: Requiring intubation, currently remains intubated, appreciate [facility] ICU assistance. Solumedrol 80 mg q6. Started on cefepime on 07/27. 08/02: SBT today, will try to extubate later today 08/03: Patient extubated yesterday afternoon and then require reintubation this AM, will work on [facility] referral 08/04: Working on LTAC referral, patient will be a long wean 08/05: Patient unable to tolerated SBT, working on LTAC 08/06: Patient has had insurance approval for LTAC, LTAC w/o beds due to staffing at this time, possible transfer on Monday per 08/07: Pending bed availability possible transfer to [facility] no change in respiratory failure status oxygen requirements with stable laboratory evaluation and vital signs including sinus bradycardia. (3) Diabetes Status: Chronic Assessment & Plan: Sliding scale insulin per ICU protocol. Qualifiers: Qualified Codes: E11.65 - Type 2 diabetes mellitus with hyperglycemia (4) Lactic acid acidosis Status: Resolved Assessment & Plan: Suspect secondary to COPD exacerbation and metformin, resolved. (5) Hypertension Status: Chronic Assessment & Plan: Initially hypotensive, requiring norepinephrine initially, maintaining BP at this time. 08/06: Patient has had labile blood pressures (6) HX: breast cancer Status: Chronic (7) Hyperlipemia Status: Chronic (8) DVT prophylaxis Status: Acute Assessment & Plan: Enoxaparin Critical Care Ventilator Management RICHI MCDONALD MD Aug 07, 2021 12:14
[2021-08-07] MEDS ORDERED: [UNRECOGNIZED DRUG - OTHER] IV SCH ×11 (17:00)
[2021-08-07] MEDS ORDERED: POTASSIUM CHLORIDE IV SCH ×11 (17:00)
[2021-08-07] MEDS ORDERED: SODIUM ACETATE IV SCH ×11 (17:00)
[2021-08-07] MEDS: DexMEDEtomidine 250 ML DRIP 250 ML IV SCH (23:11)
[2021-08-08] VITALS (13 sets, daily range): BP systolic 119–173; BP diastolic 46–79
[2021-08-08] MEDS: inSUlin ASPART (NovoLOG) 1 UNIT/0.01 ML (CHARGE PER UNIT) SC SCH ×2 (00:03→05:54)
[2021-08-08] MEDS: NYSTATIN ORAL SUSP 5 ML UDC PO SCH ×2 (00:03→05:49)
[2021-08-08] MEDS: fentaNYL DRIP PRE-MIX 250 ML IV SCH ×3 (01:38→08:03)
[2021-08-08] MEDS: RT-ALBUTEROL/IPRATROPIUM 3 ML (DUONEB) VIAL INH SCH ×2 (02:43→07:36)
[2021-08-08 04:10] LABS: ABG BASE EXCESS 2.3 MMOL/L (-2.5-2.5); ABG OXYGEN SATURATION 96 % (94-100); ABG PCO2 39 MMHG (35-45); ABG PH 7.44 (7.37-7.43); ABG PO2 74 MMHG (79-93); ABG TCO2 27.5 MMOL/L (21.0-31.0)
[2021-08-08 04:11] LABS: BASOPHILS % (AUTO) 0 % (0-10); EOSINOPHILS % (AUTO) 0 % (0-10); HEMATOCRIT 23 % (35-52); HEMOGLOBIN 7.3 g/dL (11.5-16.0); LYMPHOCYTES # (AUTO) 1.3 10^3/uL (1.0-4.0); LYMPHOCYTES % (AUTO) 11 % (12-44); MEAN CORPUSCULAR HEMOGLOBIN 26 pg (25-34); MEAN CORPUSCULAR HGB CONC 32 g/dL (32-36); MEAN CORPUSCULAR VOLUME 81 fL (80-99); MEAN PLATELET VOLUME 11.3 fL (9.0-12.2); MONOCYTES # (AUTO) 0.5 10^3/uL (0.0-1.0); MONOCYTES % (AUTO) 4 % (0-12); NEUTROPHILS # (AUTO) 9.8 10^3/uL (1.8-7.8); NEUTROPHILS % (AUTO) 84 % (42-75); PLATELET COUNT 232 10^3/uL (130-400); WHITE BLOOD COUNT 11.7 10^3/uL (4.3-11.0)
[2021-08-08 04:13] LABS: ALLENS TEST ARTLINE; INSPIRED O2 30%
[2021-08-08 04:14] LABS: PATIENT TEMP 36.6; VENTILATOR YES
[2021-08-08] MEDS: PROPOFOL DRIP (ICU) 100 ML IV SCH ×2 (04:29→09:42)
[2021-08-08 04:36] LABS: CREATININE SERUM 0.38 MG/DL (0.60-1.30)
[2021-08-08] MEDS: methylPREDNISolone 40 MG/ML (Solu-MEDROL) VIAL IV SCH (05:49)
[2021-08-08] MEDS: KCL 20 MEQ TAB (K-DUR) PO SCH (07:20)
[2021-08-08] MEDS: MAGNESIUM 1 GM/100 ML IVPB 100 ML IV SCH (07:20)
[2021-08-08] MEDS: POTASSIUM CL 10MEQ/50ML IVPB 50 ML IV SCH (07:20)
[2021-08-08 07:29] LABS: PHOSPHORUS 4.3 MG/DL (2.3-4.7)
[2021-08-08 07:32] LABS: MAGNESIUM 1.9 MG/DL (1.6-2.4)
[2021-08-08] MEDS: aCETylcysteine 20% (MUCOMYST) 4 ML SOLN VIAL INH SCH (07:36)
[2021-08-08] MEDS: PANTOPRAZOLE 40 MG (PROTONIX) VIAL IV SCH (08:04)
[2021-08-08] MEDS: LORATADINE (CLARITIN) 10 MG TAB PO SCH (08:04)
[2021-08-08] MEDS: QUEtiapine 25 MG (SEROquel) TAB IMMEDIATE RELEASE PO SCH (08:04)
[2021-08-08] MEDS: ENOXAPARIN 40 MG/0.4 ML (LOVENOX) SYR SC SCH (08:04)
[2021-08-08] MEDS: MIDAZOLAM DRIP PRE-MIX 100 ML IV SCH ×2 (08:04→08:40)
[2021-08-08] MEDS: DOCUSATE SODIUM 10 MG/ML 10 ML UDC (COLACE) PO SCH (08:04)
[2021-08-08] MEDS: SENNA W/DOCUSATE (SENOKOT S) TABLET PO SCH (08:04)
[2021-08-08] MEDS: MONTELUKAST 10 MG (SINGULAIR) TAB PO SCH (08:04)
[2021-08-08] MEDS: SENNOSIDES 8.6 MG (SENOKOT) TAB PO SCH (08:05)
--- NOTE | 2021-08-08 09:13 | Discharge Summary ---
Diagnosis/Chief Complaint Date of Admission Jul 24, 2021 at 05:47 Date of Discharge Admission Diagnosis Assessment: Acute on chronic respiratory failure AECOPD Lactic acidosis due to Metformin and hypoxemia and respiratory fatigue no evidence of sepsis or bacterial source negative PCT and negative CXR Current smoker Chronic hypoxemia uses O2 2-3 L/min chronically DM on Metformin HTN Osteoporosis GERD Depression Anxiety placing on Precedex Breast cancer hx Frail status Chronic disability Plan: Move to ICU IVF EICU consult Lovenox biPAP Precedex High risk for intubation Primary Care Joie Duran Discharge Diagnosis (1) Acute and chronic respiratory failure Status: Acute (2) Lactic acid acidosis Status: Resolved (3) Smoker (4) HX: breast cancer Status: Chronic (5) Hypertension Status: Chronic (6) Hyperlipemia Status: Chronic (7) Diabetes Status: Chronic (8) Adverse effect of metformin (9) Hypercapnia Status: Acute (10) Hypoxemia Status: Acute (11) Oxygen dependent Status: Chronic (12) COPD with acute exacerbation Status: Acute (13) Hypoxia Status: Acute (14) Anxiety Status: Acute Discharge Summary Discharge Physical Exam Allergies: Coded Allergies: No Known Drug Allergies (Unverified , 06/12/15) Vitals & I&Os Vital Signs Date Time Temp Pulse Resp B/P (MAP) Pulse Ox O2 Delivery O2 Flow Rate FiO2 08/08/21 08:40 43 18 151/69 08/08/21 08:00 94 Mechanical Ventilator 30.00 08/08/21 07:36 30 08/08/21 04:00 36.0 General Appearance: No Apparent Distress Respiratory: Other (Lungs clear anteriorly some diminished breath sounds posteriorly in the bases no wheezing) Cardiovascular: Regular Rate, Rhythm, No Murmur, Bradycardia Extremity: Other (2+ edema of the upper and lower extremities improved from yesterday) Hospital Course Was the Problem List Reviewed?: Yes Patient is a 60-year-old white female with reported COPD who presented to the emergency room in respiratory distress and was noted to be in acute on chronic hypercapnic respiratory failure. There did not appear to be a bacterial infectious component but she did require intubation in the emergency room. She required significant amount of sedation in the form of Versed propofol and Precedex overseen by the eICU team. In addition to this Seroquel was added. There was attempted extubation with transfer to [facility] on the but the p atient failed this requiring reintubation within 24hours. Apparently there were issues with ileus and the patient still has some mild abdominal distention with hypoactive bowel sounds but CT scan revealed no significant reported abnormality and no evidence for underlying infection. At this morning the abdomen is soft some bowel sounds are noted and the patient continues tube feeding with mild hyperglycemia requiring as needed sliding scale insulin. She is being accepted by Dr. Ramon at the [facility] for ongoing care. Her case was discussed with Dr. Ramon this morning. Recommendation is to discontinue Precedex which will be followed. Labs (last 24 hrs) Laboratory Tests 08/07/21 12:41: Glucometer 236H 08/07/21 17:23: Glucometer 199H 08/07/21 23:08: Glucometer 153H 08/08/21 04:00: White Blood Count 11.7H, Red Blood Count 2.82L, Hemoglobin 7.3L, Hematocrit 23L, Mean Corpuscular Volume 81, Mean Corpuscular Hemoglobin 26, Mean Corpuscular Hemoglobin Concent 32, Red Cell Distribution Width 17.7H, Platelet Count 232, Mean Platelet Volume 11.3, Immature Granulocyte % (Auto) 1, Neutrophils (%) (Auto) 84H, Lymphocytes (%) (Auto) 11L, Monocytes (%) (Auto) 4, Eosinophils (%) (Auto) 0, Basophils (%) (Auto) 0, Neutrophils # (Auto) 9.8H, Lymphocytes # (Auto) 1.3, Monocytes # (Auto) 0.5, Eosinophils # (Auto) 0.0, Basophils # (Auto) 0.0, Immature Granulocyte # (Auto) 0.1, Blood Gas Puncture Site ARTLINE, Blood Gas Patient Temperature 36.6, Arterial Blood pH 7.44H, Arterial Blood Partial Pressure CO2 39, Arterial Blood Partial Pressure O2 74L, Arterial Blood HCO3 26, Arterial Blood Total CO2 27.5, Arterial Blood Oxygen Saturation 96, Arterial Blood Base Excess 2.3, Wes Test ARTLINE, Blood Gas Ventilator Setting YES, Blood Gas Inspired Oxygen 30%, Sodium Level 140, Potassium Level 4.0, Chloride Level 109H, Carbon Dioxide Level 22, Anion Gap 9, Blood Urea Nitrogen 16, Creatinine 0.38L, Estimat Glomerular Filtration Rate 114, BUN/Creatinine Ratio 42, Glucose Level 183H, Calcium Level 8.0L, Phosphorus Level 4.3, Magnesium Level 1.9, Triglycerides Level 125 Microbiology 08/03/21 Gram Stain - Final, Complete 08/03/21 Sputum Culture - Final, Complete Usual upper respiratory porfirio 07/24/21 Blood Culture - Final, Complete No growth 07/24/21 Urine Culture - Final, Complete Gram Pos Mixed Bacterial Porfirio Patient resulted labs reviewed. Pending Labs Laboratory Tests 08/08/21 04:00: White Blood Count 11.7, Red Blood Count 2.82, Hemoglobin 7.3, Hematocrit 23, Mean Corpuscular Volume 81, Mean Corpuscular Hemoglobin 26, Mean Corpuscular Hemoglobin Concent 32, Red Cell Distribution Width 17.7, Platelet Count 232, Mean Platelet Volume 11.3, Immature Granulocyte % (Auto) 1, Neutrophils (%) (Auto) 84, Lymphocytes (%) (Auto) 11, Monocytes (%) (Auto) 4, Eosinophils (%) (Auto) 0, Basophils (%) (Auto) 0, Neutrophils # (Auto) 9.8, Lymphocytes # (Auto) 1.3, Monocytes # (Auto) 0.5, Eosinophils # (Auto) 0.0, Basophils # (Auto) 0.0, Immature Granulocyte # (Auto) 0.1, Blood Gas Puncture Site ARTLINE, Blood Gas Patient Temperature 36.6, Arterial Blood pH 7.44, Arterial Blood Partial Pressure CO2 39, Arterial Blood Partial Pressure O2 74, Arterial Blood HCO3 26, Arterial Blood Total CO2 27.5, Arterial Blood Oxygen Saturation 96, Arterial Blood Base Excess 2.3, Wes Test ARTLINE, Blood Gas Ventilator Setting YES, Blood Gas Inspired Oxygen 30%, Sodium Level 140, Potassium Level 4.0, Chloride Level 109, Carbon Dioxide Level 22, Anion Gap 9, Blood Urea Nitrogen 16, Creatinine 0.38, Estimat Glomerular Filtration Rate 114, BUN/Creatinine Ratio 42, Glucose Level 183, Calcium Level 8.0, Phosphorus Level 4.3, Magnesium Level 1.9, Triglycerides Level 125 Discussion & Recommendations Discharge Planning: >30 minutes discharge planning Discharge Home Medications: Active Scripts Active Reported Albuterol Sulfate 2.5 Mg/0.5 Ml Vial.neb 2.5 Mg INH Q6H PRN Loratadine 10 Mg Tablet 10 Mg PO HS Losartan-Hctz 100-12.5 mg Tab (Losartan/Hydrochlorothiazide) 1 Each Tablet 1 Each PO DAILY Ativan (Lorazepam) 0.5 Mg Tablet 0.5 Mg PO DAILY PRN Proair Hfa (Albuterol Sulfate) 1 Puff Puff 2 Puff IH Q4H PRN Calcium 600 + Vit D3 Tablet (Calcium Carbonate/Vitamin D3) 1 Each Tablet 1 Each PO DAILY Vitamin D3 (Cholecalciferol (Vitamin D3)) 125 Mcg Tablet 125 Mcg PO DAILY Januvia (Sitagliptin Phosphate) 50 Mg Tablet 50 Mg PO DAILY Letrozole 2.5 Mg Tablet 2.5 Mg PO DAILY Pantoprazole Sodium 40 Mg Tablet.dr 40 Mg PO BID Atorvastatin Calcium 20 Mg Tablet 20 Mg PO HS Alendronate Sodium 70 Mg Tablet 70 Mg PO WED Sertraline HCl 50 Mg Tablet 50 Mg PO HS TAKES 100MG +50MG TO EQUAL 150MG Metformin HCl 1,000 Mg Tablet 1,000 Mg PO BID WITH MEALS Naproxen 375 Mg Tablet 375 Mg PO BID PRN Sertraline HCl 100 Mg Tablet 100 Mg PO HS TAKES 100MG +50MG TO EQUAL 150MG Instructions to patient/family Please see electronic discharge instructions given to patient. Problem Qualifiers (1) Diabetes: Diabetes mellitus type: type 2 Diabetes mellitus usp insulin use: without printing gray cloth tender use Diabetes mellitus complication status: with hyperglycemia Qualified Codes: E11.65 - Type 2 diabetes mellitus with hypergl ycemia RICHI MCDONALD MD Aug 08, 2021 09:13
[2021-08-08] MEDS ORDERED: [UNRECOGNIZED DRUG - OTHER] IV SCH ×11 (17:00)
[2021-08-08] MEDS ORDERED: POTASSIUM CHLORIDE IV SCH ×11 (17:00)
[2021-08-08] MEDS ORDERED: SODIUM ACETATE IV SCH ×11 (17:00)
== END 2021-08-08 10:47 | DRG 207 ==
LOC: EDUNIT# 02:30 → ER 02:31 → CSD 05:47 → ICU 10:04
PROVIDERS: ADMIT Internal Medicine; ATTEND Internal Medicine
PROC: 0BH17EZ Insertion of Endotracheal Airway into Trachea, Via Natural or Artificial Opening (ICD-10-PCS; principal; 2021-07-24)
PROC: 5A1955Z Respiratory Ventilation, Greater than 96 Consecutive Hours (ICD-10-PCS; 2021-07-24)
PROC: 02HV33Z Insertion of Infusion Device into Superior Vena Cava, Percutaneous Approach (ICD-10-PCS; 2021-07-24)
PROC: 03HY32Z Insertion of Monitoring Device into Upper Artery, Percutaneous Approach (ICD-10-PCS; 2021-07-24)
PROC: 5A09457 Assistance with Respiratory Ventilation, 24-96 Consecutive Hours, Continuous Positive Airway Pressure (ICD-10-PCS; 2021-08-02)
DX: J96.21 Acute and chronic respiratory failure with hypoxia (principal); J18.9 Pneumonia, unspecified organism; J44.1 Chronic obstructive pulmonary disease with (acute) exacerbation; E87.2 Acidosis; J44.0 Chronic obstructive pulmonary disease with (acute) lower respiratory infection; F17.210 Nicotine dependence, cigarettes, uncomplicated; Z85.3 Personal history of malignant neoplasm of breast; I10 Essential (primary) hypertension; E11.9 Type 2 diabetes mellitus without complications; T38.3X5A Adverse effect of insulin and oral hypoglycemic [antidiabetic] drugs, initial encounter; J96.22 Acute and chronic respiratory failure with hypercapnia; Z99.81 Dependence on supplemental oxygen; F41.9 Anxiety disorder, unspecified; M81.0 Age-related osteoporosis without current pathological fracture; K21.9 Gastro-esophageal reflux disease without esophagitis; F32.A Depression, unspecified; R54 Age-related physical debility; I95.9 Hypotension, unspecified; E78.00 Pure hypercholesterolemia, unspecified; G43.909 Migraine, unspecified, not intractable, without status migrainosus; M19.90 Unspecified osteoarthritis, unspecified site; I87.2 Venous insufficiency (chronic) (peripheral); Z20.822 Contact with and (suspected) exposure to COVID-19
CPT/HCPCS: 36415; 36600; 71045; 74018; 74178; 80048; 80053; 81000; 82728; 82805; 82947; 83540; 83550; 83605; 83735; 84100; 84134; 84145; 84478; 85007; 85025; 85027; 85379; 85610; 85730; 86141; 87040; 87070; 87088; 87205; 87636; 94002; 94003; 94640; 94660; 94799; 96374

== ENCOUNTER 2021-09-11 14:41 | Emergency (ER) | payer MEDICARE ==
[~2021-09-11] VITALS: Ht 162.6 cm; Wt 53.0 kg
[~2021-09-11 14:41] MED LIST changes: +ALB0.5V INH; +LOSA1TAB26 PO
--- NOTE | 2021-09-11 15:04 | ED Cardiac General ---
History of Present Illness General Chief Complaint: Cardiac/General Problems Stated Complaint: LOW BP 64/47 Nursing Triage Note: PT TO RM 7 W C/O LOW BP AND GEN WEAKNESS. PT REPORTS SHE GOT OUT OF THE HOSPITAL ON 09/06/21. PT A&OX4, DENIES PAIN. PT WEARS 2L O2 VIA NC AT ALL TIMES. Source: patient Exam Limitations: no limitations History of Present Illness Date Seen by Provider: Sep 11, 2021 Time Seen by Provider: 15:02 Initial Comments To ER with low blood pressure and general weakness onset this morning. Yesterday blood pressures were normal at about 112 over 60s. This morning she is had a couple that were in the 60s 70s and 80s systolic. She was recently released from [facility] in [place] following a prolonged respiratory illness related to her COPD here in our ICU with some time spent on the ventilator and then transferred to [facility]. She denies any pains. She denies any fevers, denies any nausea vomiting or diarrhea. She does not take any blood pressure medication. She is on her last day of 5 mg prednisone. Timing/Duration: 12 hours Severity: moderate Activities at Onset: none NTG SL TAX SERVICES SPECIALIST: No ASA po TAX SERVICES SPECIALIST: No Associated Systoms: Nausea/Vomiting Allergies and Home Medications Allergies Coded Allergies: No Known Drug Allergies (Unverified , 06/12/15) Patient Home Medication List Home Medication List Reviewed: Yes Albuterol Sulfate (Proair Hfa) 1 Puff Puff, 2 PUFF IH Q4H PRN for SHORTNESS OF BREATH, (Reported) Entered as Reported by: EVARISTO LAROSE on 12/10/20 0954 Albuterol Sulfate (Albuterol Sulfate) 2.5 Mg/0.5 Ml Vial.neb, 2.5 MG INH Q6H PRN for SHORTNESS OF BREATH, (Reported) Entered as Reported by: EVARISTO LAROSE on 07/26/21 1300 Alendronate Sodium (Alendronate Sodium) 70 Mg Tablet, 70 MG PO WED, (Reported) Entered as Reported by: EVARISTO LAROSE on 12/10/20 0954 Atorvastatin Calcium (Atorvastatin Calcium) 20 Mg Tablet, 20 MG PO HS, (Reported) Entered as Reported by: EVARISTO LAROSE on 12/10/20 0954 Calcium Carbonate/Vitamin D3 (Calcium 600 + Vit D3 Tablet) 1 Each Tablet, 1 EACH PO DAILY, (Reported) Entered as Reported by: EVARISTO LAROSE on 12/10/20953 Cholecalciferol (Vitamin D3) (Vitamin D3) 125 Mcg Tablet, 125 MCG PO DAILY, (Reported) Entered as Reported by: EVARISTO LAROSE on 12/10/20953 Hydrocortisone (Hydrocortisone) 10 Mg Tablet, 10 MG PO BID Prescribed by: PADMINI BARBOUR on 09/11/21 1655 Letrozole (Letrozole) 2.5 Mg Tablet, 2.5 MG PO DAILY, (Reported) Entered as Reported by: EVARISTO LAROSE on 12/10/20953 Loratadine (Loratadine) 10 Mg Tablet, 10 MG PO HS, (Reported) Entered as Reported by: EVARISTO LAROSE on 07/26/21 1300 Lorazepam (Ativan) 0.5 Mg Tablet, 0.5 MG PO DAILY PRN for ANXIETY, (Reported) Entered as Reported by: EVARISTO LAROSE on 07/26/21 1300 Losartan/Hydrochlorothiazide (Losartan-Hctz 100-12.5 mg Tab) 1 Each Tablet, 1 EACH PO DAILY, (Reported) Entered as Reported by: EVARISTO LAROSE on 07/26/21 1300 Metformin HCl (Metformin HCl) 1,000 Mg Tablet, 1,000 MG PO BID WITH MEALS, (Reported) Entered as Reported by: EVARISTO LAROSE on 12/10/20953 Naproxen (Naproxen) 375 Mg Tablet, 375 MG PO BID PRN for PAIN-MILD (1-4), (R eported) Entered as Reported by: EVARISTO LAROSE on 12/10/20953 Pantoprazole Sodium (Pantoprazole Sodium) 40 Mg Tablet.dr, 40 MG PO BID, (Reported) Entered as Reported by: EVARISTO LAROSE on 12/10/20 09 Sertraline HCl (Sertraline HCl) 100 Mg Tablet, 100 MG PO HS, (Reported) Entered as Reported by: ABHI ANSARI on 08/20/15 1723 Sertraline HCl (Sertraline HCl) 50 Mg Tablet, 50 MG PO HS, (Reported) Entered as Reported by: EVARISTO LAROSE on 12/10/20 09 Sitagliptin Phosphate (Januvia) 50 Mg Tablet, 50 MG PO DAILY, (Reported) Entered as Reported by: EVARISTO LAROSE on 12/10/20 0954 Review of Systems Review of Systems Constitutional: see HPI, weakness EENTM: No Symptoms Reported Respiratory: No Symptoms Reported Cardiovascular: No Symptoms Reported Gastrointestinal: No Symptoms Reported Genitourinary: No Symptoms Reported Musculoskeletal: no symptoms reported Skin: no symptoms reported Psychiatric/Neurological: No Symptoms Reported Endocrine: No Symptoms Reported Hematologic/Lymphatic: No Symptoms Reported Past Mkmiiip-Hganjr-Vgcqja Hx Patient Social History Tobacco Use?: No Use of E-Cig and/or Vaping dev: No Substance use?: No Alcohol Use?: No Immunizations Up To Date PED Vaccines UTD: Yes Influenza Vaccine Up-to-Date: No; Not Current First/Initial COVID19 Vaccinat: N/A Second COVID19 Vaccination Corby: N/A Third COVID19 Vaccination Date: N/A Past Medical History Surgery/Hospitalization HX: COPD, DM 2 BILAT MASTECTOMY Surgeries: Yes (HERNIA, BI LAT MASECTOMY) Abdominal, Breast, Tubal Ligation Respiratory: Yes (Uses oxygen at 2 L continuously) COPD Cardiac: Yes High Cholesterol, Hypertension, Syncope Neurological: Yes (VASOVAGAL SYNCOPE VS SEIZURE) Headaches /Migraines 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, Menopausal Genitourinary: No Gastrointestinal: Yes (ESOPHAGEAL SPASMS) Musculoskeletal: Yes Arthritis Endocrine: Yes Diabetes, Non-Insulin dep HEENT: No Cancer: Yes Breast Did You Recieve Any Treatments: Yes What Type of Treatment Did You: Surgical Intervention Psychosocial: Yes Anxiety, Depression Integumentary: Yes Psoriasis Blood Disorders: No Family Medical History No Pertinent Family Hx Physical Exam Vital Signs Vital Signs - First Documented 09/11/21 14:45 Temp 35.9 Pulse 87 Resp 20 B/P (MAP) 93/56 (68) Pulse Ox 96 O2 Delivery Nasal Cannula O2 Flow Rate 2.00 Capillary Refill : Less Than 3 Seconds Height, Weight, BMI Height: 5'3.00" Weight: 139lbs. 0.0oz. [id number]; 20.00 BMI Method:Stated General Appearance: No Apparent Distress, WD/WN, Chronically ill (Chronically oxygen dependent at 2 L with subsequent SPO2 measurement at 96% no distress thin appears much older than stated age. Blood pressure 93/60 heart rate in the 80s.) Neck: Full Range of Motion, Normal Inspection Respiratory: No Accessory Muscle Use, No Respiratory Distress Cardiovascular: Regular Rate, Rhythm, Normal Peripheral Pulses Gastrointestinal: Normal Bowel Sounds, Non Tender, Soft Extremity: Normal Capillary Refill, Normal Inspection Neurologic/Psychiatric: Alert, Oriented x3 Skin: Normal Color, Warm/Dry Procedures/Interventions Date of ETT Placement: Jul 24, 2021 Time of ETT Placement: 1130 Progress/Results/Core Measures Results/Orders Lab Results Laboratory Tests Test 09/11/21 14:50 09/11/21 15:39 Range/Units White Blood Count 7.0 4.3-11.0 10^3/uL Red Blood Count 3.54 L 3.80-5.11 10^6/uL Hemoglobin 9.4 L 11.5-16.0 g/dL Hematocrit 30 L 35-52 % Mean Corpuscular Volume 84 80-99 fL Mean Corpuscular Hemoglobin 27 25-34 pg Mean Corpuscular Hemoglobin Concent 32 32-36 g/dL Red Cell Distribution Width 15.8 H 10.0-14.5 % Platelet Count 187 130-400 10^3/uL Mean Platelet Volume 11.2 9.0-12.2 fL Immature Granulocyte % (Auto) 1 % Neutrophils (%) (Auto) 75 42-75 % Lymphocytes (%) (Auto) 17 12-44 % Monocytes (%) (Auto) 7 0-12 % Eosinophils (%) (Auto) 0 0-10 % Basophils (%) (Auto) 0 0-10 % Neutrophils # (Auto) 5.2 1.8-7.8 10^3/uL Lymphocytes # (Auto) 1.2 1.0-4.0 10^3/uL Monocytes # (Auto) 0.5 0.0-1.0 10^3/uL Eosinophils # (Auto) 0.0 0.0-0.3 10^3/uL Basophils # (Auto) 0.0 0.0-0.1 10^3/uL Immature Granulocyte # (Auto) 0.1 0.0-0.1 10^3/uL Sodium Level 134 L 135-145 MMOL/L Potassium Level 3.6 3.6-5.0 MMOL/L Chloride Level 99 98-107 MMOL/L Carbon Dioxide Level 21 21-32 MMOL/L Anion Gap 14 5-14 MMOL/L Blood Urea Nitrogen 7 7-18 MG/DL Creatinine 0.73 0.60-1.30 MG/DL Estimat Glomerular Filtration Rate 94 BUN/Creatinine Ratio 10 Glucose Level 150 H 70-105 MG/DL Calcium Level 9.1 8.5-10.1 MG/DL Corrected Calcium 9.5 8.5-10.1 MG/DL Total Bilirubin 0.3 0.1-1.0 MG/DL Aspartate Amino Transf (AST/SGOT) 16 5-34 U/L Alanine Aminotransferase (ALT/SGPT) 16 0-55 U/L Alkaline Phosphatase 51 40-136 U/L Total Protein 6.5 6.4-8.2 GM/DL Albumin 3.5 3.2-4.5 GM/DL Urine Color YELLOW Urine Clarity CLEAR Urine pH 7.0 5-9 Urine Specific [place] <=1.005 1.016-1.022 Urine Protein NEGATIVE NEGATIVE Urine Glucose (UA) NEGATIVE NEGATIVE Urine Ketones NEGATIVE NEGATIVE Urine Nitrite NEGATIVE NEGATIVE Urine Bilirubin NEGATIVE NEGATIVE Urine Urobilinogen 0.2 < = 1.0 MG/DL Urine Leukocyte Esterase NEGATIVE NEGATIVE Urine RBC (Auto) NEGATIVE NEGATIVE Urine RBC NONE /HPF Urine WBC 0-2 /HPF Urine Squamous Epithelial Cells 0-2 /HPF Urine Renal Epithelial Cells NONE /HPF Urine Crystals NONE /LPF Urine Bacteria NEGATIVE /HPF Urine Casts NONE /LPF Urine Mucus NEGATIVE /LPF Urine Culture Indicated NO My Orders Orders - PADMINI BARBOUR APRN Cbc With Automated Diff (09/11/21 15:04) Comprehensive Metabolic Panel (09/11/21 15:04) Ed Iv/Invasive Line Start (09/11/21 15:04) Ua Culture If Indicated (09/11/21 15:04) Chest 1 View, Ap/Pa Only (09/11/21 15:04) Lactated Ringers (Lr 1000 Ml Iv Solution (09/11/21 15:15) Hydrocortisone Injection (Solu-Cortef In (09/11/21 17:00) Medications Given in ED Current Medications Medications Dose Ordered Sig/Patrick Route Start Time Stop Time Status Last Admin Dose Admin Hydrocortisone Sodium Succinate 50 mg ONCE ONCE IV 09/11/21 17:00 09/11/21 17:01 DC 09/11/21 17:03 50 MG Vital Signs/I&O 09/11/21 14:45 Temp 35.9 Pulse 87 Resp 20 B/P (MAP) 93/56 (68) Pulse Ox 96 O2 Delivery Nasal Cannula O2 Flow Rate 2.00 Blood Pressure Mean: 68 Departure Communication (Admissions) 1650-I do not find any other cause of hypotension such as this being anaphylactic or cardiogenic or septic or hypovolemic from excessive fluid losses. Suspect this to be related to adrenal insufficiency given her recent prolonged respiratory illness admission and high doses of steroids that she has been receiving. She otherwise looks okay and states that she feels all right. Her blood pressure karli to 107/70 immediately after the bag of IV lactated Ringer's but currently is back at 85/43. Her heart rates in the 80s. She feels okay, a little weak. I will give her hydrocortisone 50 mg IV here, then I will put her on hydrocortisone 10 mg p.o. twice daily until she is able to follow-up with primary care. Impression Primary Impression: Adrenal insufficiency due to corticosteroid withdrawal Additional Impression: Hypotension Disposition: 01 HOME, SELF-CARE Condition: Stable Departure-Patient Inst. Decision time for Depature: 15:45 Referrals: [facility] [place] Primary Care Physician JEFFERSON AQUINO (Family) Primary Care Physician Patient Instructions: Low Blood Pressure Scripts Hydrocortisone (Hydrocortisone) 10 Mg Tablet 10 MG PO BID, #14 TAB Prov: PADMINI BARBOUR APRN 09/11/21 PADMINI BARBOUR APRN Sep 11, 2021 15:03
[2021-09-11 15:14] LABS: BASOPHILS % (AUTO) 0 % (0-10); EOSINOPHILS % (AUTO) 0 % (0-10); HEMATOCRIT 30 % (35-52); HEMOGLOBIN 9.4 g/dL (11.5-16.0); LYMPHOCYTES # (AUTO) 1.2 10^3/uL (1.0-4.0); LYMPHOCYTES % (AUTO) 17 % (12-44); MEAN CORPUSCULAR HEMOGLOBIN 27 pg (25-34); MEAN CORPUSCULAR HGB CONC 32 g/dL (32-36); MEAN CORPUSCULAR VOLUME 84 fL (80-99); MEAN PLATELET VOLUME 11.2 fL (9.0-12.2); MONOCYTES # (AUTO) 0.5 10^3/uL (0.0-1.0); MONOCYTES % (AUTO) 7 % (0-12); NEUTROPHILS # (AUTO) 5.2 10^3/uL (1.8-7.8); NEUTROPHILS % (AUTO) 75 % (42-75); PLATELET COUNT 187 10^3/uL (130-400)
[2021-09-11] MEDS ORDERED: LACTATED RINGERS 1,000 ML IV SCH (15:15)
[2021-09-11 15:18] LABS: ALBUMIN 3.5 GM/DL (3.2-4.5)
[2021-09-11 15:19] LABS: POTASSIUM 3.6 MMOL/L (3.6-5.0)
[2021-09-11 15:20] LABS: CALCIUM 9.1 MG/DL (8.5-10.1)
[2021-09-11 15:21] LABS: TOTAL PROTEIN 6.5 GM/DL (6.4-8.2)
[2021-09-11 15:23] LABS: BILIRUBIN,TOTAL 0.3 MG/DL (0.1-1.0)
[2021-09-11 15:24] LABS: CREATININE SERUM 0.73 MG/DL (0.60-1.30)
--- NOTE | 2021-09-11 15:24 | Diagnostic Imaging Report ---
INDICATION: Hypotension. COMPARISON: Radiograph from 08/04/2021. FINDINGS: Heart size and configuration are within normal limits. Previous perihilar and basilar infiltrates have resolved. Prior pleural fluid has resolved. No effusion or pneumothorax. No failure pattern. IMPRESSION: Clear chest at follow-up. Dictated by: Dictated on workstation # [id number]
[2021-09-11 16:04] LABS: BILIRUBIN,URINE NEGATIVE (NEGATIVE); CLARITY,URINE CLEAR; COLOR,URINE YELLOW; GLUCOSE, URINE (UA) NEGATIVE (NEGATIVE); KETONES,URINE NEGATIVE (NEGATIVE); LEUKOCYTE ESTERASE ,URINE NEGATIVE (NEGATIVE); NITRITE,URINE NEGATIVE (NEGATIVE); PROTEIN,URINE NEGATIVE (NEGATIVE)
[2021-09-11 16:13] LABS: BACTERIA,URINE NEGATIVE /HPF; SQUAMOUS EPITHELIAL CELL,UR 0-2 /HPF; WBC,URINE 0-2 /HPF
[2021-09-11] MEDS ORDERED: HYDR-4164 PO (16:55)
[2021-09-11] MEDS ORDERED: HYDROCORTISONE 100 MG/2 ML (Solu-CORTEF) VIAL IV ONE (17:00)
[2021-09-11 17:10] VITALS: BP 94/51
[2021-09-14] MEDS ORDERED: MONT-40 PO (15:44)
[2021-09-14] MEDS ORDERED: HYDR-4164 PO (15:44)
[2021-09-14] MEDS ORDERED: IPRA3AMP31 IH (15:44)
[2021-09-14] MEDS ORDERED: DULA0.75 SQ (15:44)
[2021-09-14] MEDS ORDERED: FLUT12AE4 INH (15:44)
[2021-09-14] MEDS ORDERED: INSU100I14 SQ (15:44)
[2021-09-14] MEDS ORDERED: GABA-486 PO (15:44)
[2021-09-14] MEDS ORDERED: INSU100I10 SQ (15:44)
[2021-09-14] MEDS ORDERED: NYST1000 PO (15:44)
[2021-09-14] MEDS ORDERED: ATOR20TA66 PO (15:49)
== END 2021-09-11 17:10 | disposition home or self-care (01) ==
LOC: EDUNIT# 14:41 → ER 14:43
DX: I95.9 Hypotension, unspecified (principal); E27.3 Drug-induced adrenocortical insufficiency; T38.0X5A Adverse effect of glucocorticoids and synthetic analogues, initial encounter; I10 Essential (primary) hypertension; E11.9 Type 2 diabetes mellitus without complications; J44.9 Chronic obstructive pulmonary disease, unspecified; E78.00 Pure hypercholesterolemia, unspecified; F41.9 Anxiety disorder, unspecified; F32.A Depression, unspecified; Z99.81 Dependence on supplemental oxygen; Z79.84 Long term (current) use of oral hypoglycemic drugs; Z79.899 Other long term (current) drug therapy
CPT/HCPCS: 36415; 71045; 80053; 81000; 85025

== ENCOUNTER → 2022-04-01 | Outpatient (CLI) | payer MEDICARE ==
[~2022-04-01] MED LIST changes: +DULA0.75 SQ; +FLUT12AE4 INH; +GABA-486 PO; +HYDR-4164 PO; +INSU100I10 SQ; +INSU100I14 SQ; +MONT-40 PO; +NYST1000 PO; +POTA-169 PO; +SUCR1TAB PO
--- NOTE | 2022-04-01 14:04 | Diagnostic Imaging Report ---
INDICATION: Shoulder pain worsening times one month. No known injuries. EXAMINATION: Right shoulder 04/01/2022. FINDINGS: 2 views of the shoulder. There are clips in the axilla. There are no fractures or dislocations. There is minimal narrowing and spurring at the acromioclavicular joint. The visualized lungs clear. IMPRESSION: 1. No acute osseous abnormality. Dictated by: Dictated on workstation # [id number]
== END ==
LOC: RAD 11:10
PROVIDERS: ATTEND Nurse Practitioner Family
DX: M25.511 Pain in right shoulder (principal)
CPT/HCPCS: 73030

== ENCOUNTER 2022-05-02 17:55 | Inpatient (IN) | payer MEDICARE ==
[2022-05-02] VITALS (7 sets, daily range): BP systolic 100–171; BP diastolic 54–126
[~2022-05-02] VITALS: Ht 162 cm; Wt 66.5 kg
--- NOTE | 2022-05-02 18:28 | Diagnostic Imaging Report ---
EXAMINATION: Chest 1 view HISTORY: dyspnea COMPARISON: 09/13/2021. FINDINGS: Heart size and pulmonary vasculature are normal. The lungs are clear without consolidation, pleural effusion, or pneumothorax. The osseous structures are intact. IMPRESSION: 1. No acute radiographic abnormality in the chest. Dictated by: Dictated on workstation # [id number]
[2022-05-02 18:44] LABS: BASOPHILS # (AUTO) 0.1 10^3/uL (0.0-0.1); BASOPHILS % (AUTO) 0 % (0-10); EOSINOPHILS # (AUTO) 1.5 10^3/uL (0.0-0.3); EOSINOPHILS % (AUTO) 9 % (0-10); HEMATOCRIT 39 % (35-52); HEMOGLOBIN 12.6 g/dL (11.5-16.0); LYMPHOCYTES # (AUTO) 3.7 10^3/uL (1.0-4.0); LYMPHOCYTES % (AUTO) 22 % (12-44); MEAN CORPUSCULAR HEMOGLOBIN 26 pg (25-34); MEAN CORPUSCULAR HGB CONC 32 g/dL (32-36); MEAN CORPUSCULAR VOLUME 82 fL (80-99); MEAN PLATELET VOLUME 11.7 fL (9.0-12.2); MONOCYTES # (AUTO) 1.1 10^3/uL (0.0-1.0); MONOCYTES % (AUTO) 7 % (0-12); NEUTROPHILS # (AUTO) 10.2 10^3/uL (1.8-7.8); NEUTROPHILS % (AUTO) 61 % (42-75); PLATELET COUNT 265 10^3/uL (130-400); WHITE BLOOD COUNT 16.6 10^3/uL (4.3-11.0)
--- NOTE | 2022-05-02 18:47 | ED Respiratory ---
General Chief Complaint: Respiratory Problems Stated Complaint: SOB Nursing Triage Note: pt to room by wheelchair. states she has copd and has been admitted for exacerbations in the past. pt reports she usually wears 2L NC at home and runs around 94%. pt states 2-3 weeks ago she began having increased coughing, runny nose, and sore throat that has been resolved. states now she just has increasing sob especially with exertion. pt O2 on 2L on arrival was 89%, bumped to 3L and now saturation is 98% Source: patient History of Present Illness Date Seen by Provider: May 02, 2022 Time Seen by Provider: 18:05 Initial Comments PT ARRIVES VIA POV FROM HOME C/O SHORTNESS OF BREATH X 2 WEEKS NO CHEST PAIN NO FEVER/SWEATS/CHILLS HAS HAD COUGH/COLD SYMPTOMS WITH CLEAR RUNNY NOSE, AND SORE THROAT NO SWELLING IN LEGS/FEET OR PAIN IN CALVES PT HAS COPD AND IS MAINTAINED ON O2 AT 2L/NC CONTINUOUSLY USES ALBUTEROL NEB TREATMENTS EVERY 12 HOURS, AND USED ALBUTEROL RESCUE INHALER AT 1600 SYMPTOMS ARE NO DIFFERENT TONCHARLIE HAS NOT SOUGHT CARE UNTIL TONCHARLIE HAS NOT TAKEN ANY OVER THE COUNTER MEDICATIONS FOR COUGH/CONGESTION PT IS NOT COVID VACCINATED. PCP: [facility] Allergies and Home Medications Allergies Coded Allergies: No Known Drug Allergies (Unverified , 06/12/15) Patient Home Medication List Home Medication List Reviewed: Yes Albuterol Sulfate (Proair Hfa) 1 Puff Puff, 2 PUFF IH Q4H PRN for SHORTNESS OF BREATH, (Reported) Entered as Reported by: EVARISTO LAROSE on 12/10/20 0954 Last Action: Reviewed Albuterol Sulfate (Albuterol Sulfate) 2.5 Mg/3 Ml (0.083 %) Vial.neb, 3 ML NEB Q6H PRN for SHORTNESS OF BREATH, (Reported) Entered as Reported by: EVARISTO LAROSE on 05/03/22 1053 Last Action: Reviewed Ascorbic Acid (Vitamin C) 500 Mg Tab.chew, 500 MG PO DAILY, (Reported) Entered as Reported by: EVARISTO LAROSE on 05/03/22 1053 Last Action: Reviewed Atorvastatin Calcium (Atorvastatin Calcium) 20 Mg Tablet, 20 MG PO HS, (Reported) Entered as Reported by: EVARISTO LAROSE on 09/14/21 7679 Last Action: Reviewed Calcium Carbonate (Calcium) 600 Mg Calcium (1500 Mg) Tablet, 600 MG PO BID, (Reported) Entered as Reported by: LEATHA JUSTIN on 05/03/22950 Last Action: Reviewed Cholecalciferol (Vitamin D3) (Vitamin D3) 25 Mcg (1000 Unit) Capsule, 25 MCG PO DAILY, (Reported) Entered as Reported by: EVARISTO LAROSE on 05/03/221052 Last Action: Reviewed Cyanocobalamin (Vitamin B-12) (Vitamin B-12) 5,000 Mcg Tab.rapdis, 5,000 MCG PO DAILY, (Reported) Entered as Reported by: EVARISTO LAROSE on 05/03/221052 Last Action: Reviewed Dulaglutide (Trulicity) 0.75 Mg/0.5 Ml Pen.injctr, 0.75 MG SQ FRI, (Reported) Entered as Reported by: EVARISTO LAROSE on 09/14/211543 Last Action: Held Fluticasone/Salmeterol (Advair Hfa 115-21 Mcg Inhaler) 12 Gm Hfa.aer.ad, 2 PUFF INH BID, (Reported) Entered as Reported by: EVARISTO LAROSE on 09/14/211543 Last Action: Reviewed Insulin Glargine,Hum.rec.anlog (Lantus Solostar) 100 Unit/1 Ml Insuln.pen, 25 UNITS SQ HS, (Reported) Entered as Reported by: EVARISTO LAROSE on 09/14/211543 Last Action: Reviewed Ipratropium/Albuterol Sulfate (Iprat-Albut 0.5-3(2.5) mg/3 ml) 3 Ml Ampul.neb, 3 ML IH TID, (Reported) Entered as Reported by: EVARISTO LAROSE on 09/14/211543 Last Action: Reviewed Letrozole (Letrozole) 2.5 Mg Tablet, 2.5 MG PO DAILY, (Reported) Entered as Reported by: EVARISTO LAROSE on 12/10/20953 Last Action: Reviewed Lisinopril (Lisinopril) 5 Mg Tablet, 5 MG PO DAILY, (Reported) Entered as Reported by: LEATHA JUSTIN on 05/03/22950 Last Action: Reviewed Metformin HCl (Metformin HCl ER) 500 Mg Tab.er.24h, 500 MG PO DAILY, (Reported) Entered as Reported by: LEATHA JUSTIN on 05/03/22 0951 Last Action: Continued Montelukast Sodium (Montelukast Sodium) 10 Mg Tablet, 10 MG PO HS, (Reported) Entered as Reported by: EVARISTO LAROSE on 09/14/211543 Last Action: Reviewed Pantoprazole Sodium (Pantoprazole Sodium) 40 Mg Tablet.dr, 40 MG PO BID, (Reported) Entered as Reported by: EVARISTO LAROSE on 12/10/20953 Last Action: Reviewed Prednisone (Prednisone) 20 Mg Tab, 40 MG PO Q24HR Prescribed by: LEATHA JUSTIN on 05/05/22 0815 Sertraline HCl (Sertraline HCl) 100 Mg Tablet, 100 MG PO HS, (Reported) Entered as Reported by: ABHI ANSARI on 08/20/15 1723 Last Action: Reviewed Sertraline HCl (Sertraline HCl) 50 Mg Tablet, 50 MG PO HS, (Reported) Entered as Reported by: EVARISTO LAROSE on 12/10/20953 Last Action: Reviewed Umeclidinium [place] (Incruse Ellipta) 62.5 Mcg/Actuation Blst.w.dev, 62.5 MCG IH DAILY Prescribed by: LEATHA JUSTIN on 05/05/22 1003 Discontinued Medications Alendronate Sodium (Alendronate Sodium) 70 Mg Tablet, 70 MG PO FRI, (Reported) Entered as Reported by: EVARISTO LAROSE on 12/10/20953 Last Action: Discontinued Cholecalciferol (Vitamin D3) (Vitamin D3) 125 Mcg Tablet, 125 MCG PO DAILY, (Reported) Discontinued Reason: Prescription changed Entered as Reported by: EVARISTO LAROSE on 12/10/20953 Last Action: Reviewed Gabapentin (Gabapentin) 100 Mg Capsule, 200 MG PO TID, (Reported) Entered as Reported by: EVARISTO LAROSE on 09/14/211543 Last Action: Discontinued Hydrocortisone (Hydrocortisone) 10 Mg Tablet, 10 MG PO BID Prescribed by: KANG HUMPHREY on 09/16/21 1136 Last Action: Discontinued Insulin Aspart (Novolog Flexpen) 300 Units/3 Ml Solution, 5 UNITS SQ AC, (Reported) Entered as Reported by: EVARISTO LAROSE on 2/22/22 1544 Last Action: Discontinued Losartan/Hydrochlorothiazide (Losartan-Hctz 100-12.5 mg Tab) 1 Each Tablet, 1 EACH PO DAILY, (Reported) Entered as Reported by: EVARISTO LAROSE on 07/26/21 1300 Last Action: Discontinued Mecobalamin (B12 Active) 1,000 Mcg Tab.chew, 5,000 MCG PO DAILY, (Reported) Discontinued Reason: Prescription changed Entered as Reported by: LEATHA JUSTIN on 05/03/22 0951 Last Action: Reviewed Nystatin (Nystatin) 100,000 Unit/1 Ml Oral.susp, 5 ML PO QID, (Reported) Entered as Reported by: EVARISTO LAROSE on 09/14/21 1544 Last Action: Discontinued Potassium Chloride (Klor-Con M20) 20 Meq Tab.er.prt, 20 MEQ PO DAILY@0700 Prescribed by: KANG HUMPHREY on 09/16/21 1136 Last Action: Discontinued Sucralfate (Sucralfate) 1 Gm Tablet, 1 GM PO ACHS Prescribed by: KANG HUMPHREY on 09/16/21 113 Last Action: Discontinued Review of Systems Review of Systems Constitutional: no symptoms reported EENTM: see HPI Respiratory: see HPI Cardiovascular: no symptoms reported; No chest pain, No edema Gastrointestinal: no symptoms reported Genitourinary: no symptoms reported Musculoskeletal: no symptoms reported Skin: no symptoms reported Psychiatric/Neurological: No Symptoms Reported Hematologic/Lymphatic: No Symptoms Reported Immunological/Allergic: no symptoms reported Past Iqbujns-Qmfbzu-Evukuu Hx Immunizations Up To Date PED Vaccines UTD: Yes First/Initial COVID19 Vaccinat: N/A Second COVID19 Vaccination [place]: N/A Third COVID19 Vaccination Date: N/A Past Medical History Surgery/Hospitalization HX: COPD, DM 2 BILAT MASTECTOMY Surgeries: Yes (HERNIA, BI LAT MASECTOMY) Abdominal, Breast, Tubal Ligation Respiratory: Yes (Uses oxygen at 2 L continuously) Pneumonia, COPD Cardiac: Yes High Cholesterol, Hypertension Neurological: Yes (VASOVAGAL SYNCOPE VS SEIZURE) Headaches /Migraines 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 0.0oz. 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 nml as tested, no motor/sensory deficits, alert, normal mood/affect, oriented x 3 Skin: normal color, warm/dry Focused Exam Lactate Level 05/02/22 18:25: Lactic Acid Level 1.23 Lactic Acid Level Laboratory Tests Test 05/02/22 18:25 Lactic Acid Level 1.23 MMOL/L (0.50-2.00) Procedures/Interventions Date of ETT Placement: Jul 24, 2021 Time of ETT Placement: 1130 Progress/Results/Core Measures Suspected Sepsis SIRS Temperature: Pulse: 98 Respiratory Rate: 28 Blood Pressure 204 /98 Mean: 133 05/02/22 18:25: Lactic Acid Level 1.23 Laboratory Tests 05/02/22 18:25: INR Comment 0.9 Results/Orders Lab Results Laboratory Tests Test 05/02/22 18:24 05/02/22 18:25 05/02/22 18:46 Range/Units Blood Gas Puncture Site R RADIAL Blood Gas Patient Temperature 36.5 Arterial Blood pH 7.34 *L 7.37-7.43 Arterial Blood Partial Pressure CO2 58 H 35-45 MMHG Arterial Blood Partial Pressure O2 99 H 79-93 MMHG Arterial Blood HCO3 30 H 23-27 MMOL/L Arterial Blood Total CO2 32.1 H 21.0-31.0 MMOL/L Arterial Blood Oxygen Saturation 98 94-100 % Arterial Blood Base Excess 4.7 H -2.5-2.5 MMOL/L Wes Test NA Blood Gas Ventilator Setting NO Blood Gas Inspired Oxygen 3L White Blood Count 16.6 H 4.3-11.0 10^3/uL Red Blood Count 4.78 3.80-5.11 10^6/uL Hemoglobin 12.6 11.5-16.0 g/dL Hematocrit 39 35-52 % Mean Corpuscular Volume 82 80-99 fL Mean Corpuscular Hemoglobin 26 25-34 pg Mean Corpuscular Hemoglobin Concent 32 32-36 g/dL Red Cell Distribution Width 13.7 10.0-14.5 % Platelet Count 265 130-400 10^3/uL Mean Platelet Volume 11.7 9.0-12.2 fL Immature Granulocyte % (Auto) 0 % Neutrophils (%) (Auto) 61 42-75 % Lymphocytes (%) (Auto) 22 12-44 % Monocytes (%) (Auto) 7 0-12 % Eosinophils (%) (Auto) 9 0-10 % Basophils (%) (Auto) 0 0-10 % Neutrophils # (Auto) 10.2 H 1.8-7.8 10^3/uL Lymphocytes # (Auto) 3.7 1.0-4.0 10^3/uL Monocytes # (Auto) 1.1 H 0.0-1.0 10^3/uL Eosinophils # (Auto) 1.5 H 0.0-0.3 10^3/uL Basophils # (Auto) 0.1 0.0-0.1 10^3/uL Immature Granulocyte # (Auto) 0.1 0.0-0.1 10^3/uL Neutrophils % (Manual) 56 % Lymphocytes % (Manual) 25 % Monocytes % (Manual) 6 % Eosinophils % (Manual) 13 % Blood Morphology Comment NORMAL Erythrocyte Sedimentation Rate 18 0-30 MM/HR Prothrombin Time 12.9 12.2-14.7 SEC INR Comment 0.9 0.8-1.4 Activated Partial Thromboplast Time 29 24-35 SEC D-Dimer <= 0.27 0.00-0.49 UG/ML Sodium Level 139 135-145 MMOL/L Potassium Level 4.2 3.6-5.0 MMOL/L Chloride Level 102 98-107 MMOL/L Carbon Dioxide Level 28 21-32 MMOL/L Anion Gap 9 5-14 MMOL/L Blood Urea Nitrogen 11 7-18 MG/DL Creatinine 0.69 0.60-1.30 MG/DL Estimat Glomerular Filtration Rate 98 BUN/Creatinine Ratio 16 Glucose Level 118 H 70-105 MG/DL Lactic Acid Level 1.23 0.50-2.00 MMOL/L Calcium Level 9.9 8.5-10.1 MG/DL Corrected Calcium 9.5 8.5-10.1 MG/DL Magnesium Level 1.9 1.6-2.4 MG/DL Total Bilirubin 0.3 0.1-1.0 MG/DL Aspartate Amino Transf (AST/SGOT) 17 5-34 U/L Alanine Aminotransferase (ALT/SGPT) 20 0-55 U/L Alkaline Phosphatase 107 40-136 U/L Total Creatine Kinase 61 29-168 U/L Creatine Kinase MB 1.7 <6.6 NG/ML Myoglobin 30.9 10.0-92.0 NG/ML Troponin I < 0.028 <0.028 NG/ML C-Reactive Protein High Sensitivity 0.12 0.00-0.50 MG/DL B-Type Natriuretic Peptide < 10.0 <100.0 PG/ML Total Protein 7.8 6.4-8.2 GM/DL Albumin 4.5 3.2-4.5 GM/DL Procalcitonin 0.02 <0.10 NG/ML Influenza Type A (RT-PCR) Not Detected Not Detecte Influenza Type B (RT-PCR) Not Detected Not Detecte SARS-CoV-2 RNA (RT-PCR) Not Detected Not Detecte Urine Color YELLOW Urine Clarity CLEAR Urine pH 6.5 5-9 Urine Specific [place] 1.010 L 1.016-1.022 Urine Protein NEGATIVE NEGATIVE Urine Glucose (UA) NEGATIVE NEGATIVE Urine Ketones NEGATIVE NEGATIVE Urine Nitrite NEGATIVE NEGATIVE Urine Bilirubin NEGATIVE NEGATIVE Urine Urobilinogen 0.2 < = 1.0 MG/DL Urine Leukocyte Esterase NEGATIVE NEGATIVE Urine RBC (Auto) NEGATIVE NEGATIVE Urine RBC NONE /HPF Urine WBC RARE /HPF Urine Squamous Epithelial Cells RARE /HPF Urine Renal Epithelial Cells NONE /HPF Urine Crystals NONE /LPF Urine Bacteria NEGATIVE /HPF Urine Casts NONE /LPF Urine Mucus NEGATIVE /LPF Urine Culture Indicated NO Micro Results Microbiology 05/02/22 Blood Culture - Preliminary, Resulted No growth 05/02/22 Blood Culture - Preliminary, Resulted No growth My Orders Orders - ELADIA HOLLAND DO Ed Iv/Invasive Line Start (05/02/22 18:05) Ekg Tracing (05/02/22 18:05) O2 (05/02/22 18:05) Monitor-Rhythm Ecg Trace Only (05/02/22 18:05) Cbc With Automated Diff (05/02/22 18:05) Comprehensive Metabolic Panel (05/02/22 18:05) Fibrin Degradation Products (05/02/22 18:05) Procalcitonin (Pct) (05/02/22 18:05) Hs C Reactive Protein (05/02/22 18:05) Erythrocyte Sedimentation Rate (05/02/22 18:05) Chest 1 View, Ap/Pa Only (05/02/22 18:05) Covid 19 Inhouse Test (05/02/22 18:05) Bnp Vicente (05/02/22 18:05) Creatine Kinase (05/02/22 18:05) Creatine Kinase Mb (05/02/22 18:05) Lactic Acid Analyzer (05/02/22 18:05) Magnesium (05/02/22 18:05) Protime With Inr (05/02/22 18:05) Partial Thromboplastin Time (05/02/22 18:05) Myoglobin Serum (05/02/22 18:05) Troponin I [place] (05/02/22 18:05) Influenza A And B By Pcr (05/02/22 18:05) Isolation Central Supply Req (05/02/22 18:05) Arterial Blood Gas (05/02/22 18:24) Manual Differential (05/02/22 18:25) Methylprednisolone Sod Succ (Solu-Medrol (05/02/22 19:00) Ceftriaxone 1 Gm Pre-Mix (Rocephin 1 Gm (05/02/22 19:00) Azithromycin Injection (Zithromax Inject (05/02/22 19:00) Albuterol/Ipra Inhalation Soln (Duoneb I (05/02/22 19:15) Dexamethasone Injection (Decadron Injec (05/02/22 19:15) Svn Small Volume Nebulizer (05/02/22 19:06) Ua Culture If Indicated (05/02/22 19:06) Ed Admission (Communication) (05/02/22 20:20) Vital Signs/I&O 05/02/22 05/02/22 05/02/22 05/02/22 18:00 18:00 18:00 19:31 Temp 36.5 Pulse 98 90 Resp 28 22 B/P (MAP) 204/98 (133) Pulse Ox 93 98 96 O2 Delivery Nasal Cannula Nasal Cannula O2 Flow Rate 3.00 3.00 28.00 Capillary Refill : Blood Pressure Mean: 133 Progress Note : Progress Note PLACED IN ISOLATION ROOM PPE WORN AT ALL TIMES COVID AND FLU TESTING DONE. O2 SAT 88% ON 2L/NC ON ARRIVAL. INCREASED TO 3L/NC WITHOUT IMPROVEMENT. PT PLACED IN BIPAP AND NEB TREATMENT GIVEN ECG Initial ECG Impression Date: May 02, 2022 Initial ECG Impression Time: 18:36 Initial ECG Rate: 98 Initial ECG Rhythm: Normal Sinus Diagnostic Imaging Comments CXR--PER RADIOLOGIST REPORT AT 1846 FINDINGS: Heart size and pulmonary vasculature are normal. The lungs are clear without consolidation, pleural effusion, or pneumothorax. The osseous structures are intact. IMPRESSION: 1. No acute radiographic abnormality in the chest. Reviewed: Reviewed by [place] Departure Communication (Admissions) 1955--SPOKE WITH DR. JUSTIN, ACCEPTS PT FOR ADMIT. SHE WILL PUT IN ADMIT ORDERS. Impression Primary Impression: Acute on chronic respiratory failure with hypoxia and hypercapnia Additional Impressions: COPD exacerbation IDDM (insulin dependent diabetes mellitus) HTN (hypertension) Disposition: ADMITTED INPATIENT Condition: Stable Admissions Decision to Admit Reason: Admit from ER (General) Decision to Admit/Date: May 02, 2022 Time/Decision to Admit Time: 20:00 Departure-Patient Inst. Referrals: [facility] (PCP/Family) Primary Care Physician Scripts Umeclidinium [place] (Incruse Ellipta) 62.5 Mcg/Actuation Blst.w.dev 62.5 MCG IH DAILY, #1 EA 0 Refills Prov: LEATHA JUSTIN MD 05/05/22 Prednisone (Prednisone) 20 Mg Tab 40 MG PO Q24HR, #6 TAB 0 Refills Prov: LEATHA JUSTIN MD 05/05/22 ELADIA HOLLAND DO May 02, 2022 18:47
[2022-05-02 18:48] LABS: ABG BASE EXCESS 4.7 MMOL/L (-2.5-2.5); ABG OXYGEN SATURATION 98 % (94-100); ABG PCO2 58 MMHG (35-45); ABG PO2 99 MMHG (79-93); ABG TCO2 32.1 MMOL/L (21.0-31.0)
[2022-05-02 18:49] LABS: ABG PH 7.34 (7.37-7.43); INSPIRED O2 3L; PATIENT TEMP 36.5; VENTILATOR NO
[2022-05-02 18:51] LABS: ALBUMIN 4.5 GM/DL (3.2-4.5); CHLORIDE 102 MMOL/L (98-107); POTASSIUM 4.2 MMOL/L (3.6-5.0); SODIUM 139 MMOL/L (135-145)
[2022-05-02 18:52] LABS: CALCIUM 9.9 MG/DL (8.5-10.1)
[2022-05-02 18:53] LABS: GLUCOSE 118 MG/DL (70-105); TOTAL PROTEIN 7.8 GM/DL (6.4-8.2)
[2022-05-02 18:54] LABS: CARBON DIOXIDE 28 MMOL/L (21-32)
[2022-05-02 18:55] LABS: BILIRUBIN,TOTAL 0.3 MG/DL (0.1-1.0)
[2022-05-02 18:57] LABS: ALKALINE PHOSPHATASE 107 U/L (40-136); CREATININE SERUM 0.69 MG/DL (0.60-1.30); GFR ESTIMATED 98; INR 0.9 (0.8-1.4); PARTIAL THROMBOPLASTIN TIME 29 SEC (24-35); PROTHROMBIN TIME PATIENT 12.9 SEC (12.2-14.7)
[2022-05-02 18:58] LABS: BUN/CREATININE RATIO 16
[2022-05-02 19:00] LABS: ALANINE AMINOTRANSFERASE 20 U/L (0-55); CREATINE KINASE 61 U/L (29-168); MAGNESIUM 1.9 MG/DL (1.6-2.4)
[2022-05-02] MEDS ORDERED: methylPREDNISolone 125 MG (Solu-MEDROL) VIAL IVP ONE (19:00)
[2022-05-02] MEDS ORDERED: cefTRIAXone 1 GM PRE-MIX 50 ML IV ONE (19:00)
[2022-05-02] MEDS ORDERED: AZITHROMYCIN INJECTION 500 MG in NS (IVPB) 250 ML IV ONE (19:00)
[2022-05-02 19:03] LABS: ERYTHROCYTE SEDIMENTATION RATE 18 MM/HR (0-30)
[2022-05-02 19:07] LABS: CREATINE KINASE MB 1.7 NG/ML (<6.6); EOSINOPHILS % (MANUAL) 13 %; LYMPHOCYTES % (MANUAL) 25 %; MONOCYTES % (MANUAL) 6 %; NEUTROPHILS % (MANUAL) 56 %; RBC MORPH NORMAL
[2022-05-02 19:09] LABS: FIBRIN DEGRADATION PRODUCTS <= 0.27 UG/ML (0.00-0.49)
[2022-05-02 19:11] LABS: BILIRUBIN,URINE NEGATIVE (NEGATIVE); CLARITY,URINE CLEAR; COLOR,URINE YELLOW; GLUCOSE, URINE (UA) NEGATIVE (NEGATIVE); KETONES,URINE NEGATIVE (NEGATIVE); LEUKOCYTE ESTERASE ,URINE NEGATIVE (NEGATIVE); NITRITE,URINE NEGATIVE (NEGATIVE); PH,URINE 6.5 (5-9); PROTEIN,URINE NEGATIVE (NEGATIVE)
[2022-05-02] MEDS ORDERED: RT-ALBUTEROL/IPRATROPIUM 3 ML (DUONEB) VIAL INH ONE (19:15)
[2022-05-02 19:17] LABS: BACTERIA,URINE NEGATIVE /HPF; SQUAMOUS EPITHELIAL CELL,UR RARE /HPF; WBC,URINE RARE /HPF
[2022-05-02] MEDS ORDERED: RT-ALBUTEROL SULF 2.5 MG/3 ML PRE-MIX VIAL INH SCH (22:00)
[2022-05-02] MEDS ORDERED: RT-ALBUTEROL SULF 2.5 MG/3 ML PRE-MIX VIAL INH PRN (23:15)
[2022-05-03] VITALS (16 sets, daily range): BP systolic 103–133; BP diastolic 51–74
[2022-05-03 05:35] LABS: HEMATOCRIT 35 % (35-52); HEMOGLOBIN 11.5 g/dL (11.5-16.0); MEAN CORPUSCULAR HEMOGLOBIN 27 pg (25-34); MEAN CORPUSCULAR HGB CONC 33 g/dL (32-36); MEAN CORPUSCULAR VOLUME 82 fL (80-99); MEAN PLATELET VOLUME 12.1 fL (9.0-12.2); PLATELET COUNT 216 10^3/uL (130-400); WHITE BLOOD COUNT 10.8 10^3/uL (4.3-11.0)
[2022-05-03 05:59] LABS: BILIRUBIN,TOTAL 0.2 MG/DL (0.1-1.0); CALCIUM 9.8 MG/DL (8.5-10.1); CREATININE SERUM 0.71 MG/DL (0.60-1.30); POTASSIUM 4.1 MMOL/L (3.6-5.0); TOTAL PROTEIN 6.9 GM/DL (6.4-8.2)
[2022-05-03] MEDS: RT-ALBUTEROL/IPRATROPIUM 3 ML (DUONEB) VIAL IH SCH ×5 (07:19→22:32)
[2022-05-03] MEDS: predniSONE 20 MG TAB PO SCH (08:12)
[2022-05-03] MEDS: ENOXAPARIN 40 MG/0.4 ML (LOVENOX) SYR SC SCH (08:15)
--- NOTE | 2022-05-03 09:41 | History & Physical ---
HPI History of Present Illness: 61 yo with supplemental oxygen dependent COPD presented to ER due to severe shortness of breath. She states she got a cold and thought she could manage it with her inhalers, but then got to the point of being so short of breath she couldn't get to the bathroom or get dressed without severe shortness of breath. She thinks the cold symptoms started 2-3 weeks ago and was mild. She lives in a camper and states that when she was having trouble breathing she was panicking, and her family picked up her legs and carried her to their house and she could breathe better there, she isn't sure why but does think it might be because she was less anxious with people around. She usually wears 2 lpm of supplemental oxygen. Sometimes she has to use 3 lpm when she is very active or weather is bothering her. She feels much better this morning, but hasn't walked around yet. She denies fever. Admits cough, runny nose, ear pressure. Date seen by provider: May 03, 2022 Time Seen by Provider: 09:40 Attending Physician [place] PCP Admitting Physician: Rocío Doyle MD Attending Physician: Rocío Doyle MD Consult Date of Admission May 02, 2022 at 20:21 Home Medications Home Medications Reviewed patient Home Medication Reconciliation performed by pharmacy medication reconciliations natural resource technician and/or nursing. Patients Allergies have been reviewed. Allergies Coded Allergies: No Known Drug Allergies (Unverified , 06/12/15) [id number] Hx Patient Social History Smoking Status: Current Everyday Smoker (quit smoking for 6 months starting 10/2021) Recent Hopitalizations: No Alcohol Use?: No Tobacco type used: Cigarettes Have you traveled recently?: No Immunizations Up To Date Influenza Vaccine Up-to-Date: No; Not Current First/Initial COVID19 Vaccinat: N/A Second COVID19 Vaccination [place]: N/A Third COVID19 Vaccination Date: N/A Past Medical History PMHx: COPD O2 dependent Tremor Smoker Breast cancer s/p resection only Diabetes Osteoporosis Depression Anxiety GERD Psoriasis SurgHx: Bilateral mastectomy Bilateral tubal ligation Hiatal hernia repair Family Medical History Significant Family History: Cancer (father , metastatic cancer of uncertain type; on paternal side 2 uncles and aunt of cancer; maternal side aunt lung cancer), Diabetes (father), Psychiatric Problems (mother- bipolar disorder, uncertain cause) Review of Systems ([facility]) Constitutional: No fever Respiratory: cough, dyspnea on exertion, short of breath Gastrointestinal: constipation; No diarrhea, No nausea, No vomiting Genitourinary: No dysuria Skin: No rash Psychiatric/Neurological: Anxiety Reviewed Test Results Reviewed Test Results Lab Laboratory Tests Test 05/02/22 18:24 05/02/22 18:25 05/02/22 18:46 05/03/22 05:15 Range/Units Blood Gas Puncture Site R RADIAL Blood Gas Patient Temperature 36.5 Arterial Blood pH 7.34 *L 7.37-7.43 Arterial Blood Partial Pressure CO2 58 H 35-45 MMHG Arterial Blood Partial Pressure O2 99 H 79-93 MMHG Arterial Blood HCO3 30 H 23-27 MMOL/L Arterial Blood Total CO2 32.1 H 21.0-31.0 MMOL/L Arterial Blood Oxygen Saturation 98 94-100 % Arterial Blood Base Excess 4.7 H -2.5-2.5 MMOL/L Wes Test NA Blood Gas Ventilator Setting NO Blood Gas Inspired Oxygen 3L White Blood Count 16.6 H 10.8 4.3-11.0 10^3/uL Red Blood Count 4.78 4.29 3.80-5.11 10^6/uL Hemoglobin 12.6 11.5 11.5-16.0 g/dL Hematocrit 39 35 35-52 % Mean Corpuscular Volume 82 82 80-99 fL Mean Corpuscular Hemoglobin 26 27 25-34 pg Mean Corpuscular Hemoglobin Concent 32 33 32-36 g/dL Red Cell Distribution Width 13.7 13.8 10.0-14.5 % Platelet Count 265 216 130-400 10^3/uL Mean Platelet Volume 11.7 12.1 9.0-12.2 fL Immature Granulocyte % (Auto) 0 % Neutrophils (%) (Auto) 61 42-75 % Lymphocytes (%) (Auto) 22 12-44 % Monocytes (%) (Auto) 7 0-12 % Eosinophils (%) (Auto) 9 0-10 % Basophils (%) (Auto) 0 0-10 % Neutrophils # (Auto) 10.2 H 1.8-7.8 10^3/uL Lymphocytes # (Auto) 3.7 1.0-4.0 10^3/uL Monocytes # (Auto) 1.1 H 0.0-1.0 10^3/uL Eosinophils # (Auto) 1.5 H 0.0-0.3 10^3/uL Basophils # (Auto) 0.1 0.0-0.1 10^3/uL Immature Granulocyte # (Auto) 0.1 0.0-0.1 10^3/uL Neutrophils % (Manual) 56 % Lymphocytes % (Manual) 25 % Monocytes % (Manual) 6 % Eosinophils % (Manual) 13 % Blood Morphology Comment NORMAL Erythrocyte Sedimentation Rate 18 0-30 MM/HR Prothrombin Time 12.9 12.2-14.7 SEC INR Comment 0.9 0.8-1.4 Activated Partial Thromboplast Time 29 24-35 SEC D-Dimer <= 0.27 0.00-0.49 UG/ML Sodium Level 139 140 135-145 MMOL/L Potassium Level 4.2 4.1 3.6-5.0 MMOL/L Chloride Level 102 103 98-107 MMOL/L Carbon Dioxide Level 28 24 21-32 MMOL/L Anion Gap 9 13 5-14 MMOL/L Blood Urea Nitrogen 11 14 7-18 MG/DL Creatinine 0.69 0.71 0.60-1.30 MG/DL Estimat Glomerular Filtration Rate 98 96 BUN/Creatinine Ratio 16 20 Glucose Level 118 H 221 H 70-105 MG/DL Lactic Acid Level 1.23 0.50-2.00 MMOL/L Calcium Level 9.9 9.8 8.5-10.1 MG/DL Corrected Calcium 9.5 9.8 8.5-10.1 MG/DL Magnesium Level 1.9 1.6-2.4 MG/DL Total Bilirubin 0.3 0.2 0.1-1.0 MG/DL Aspartate Amino Transf (AST/SGOT) 17 14 5-34 U/L Alanine Aminotransferase (ALT/SGPT) 20 17 0-55 U/L Alkaline Phosphatase 107 98 40-136 U/L Total Creatine Kinase 61 29-168 U/L Creatine Kinase MB 1.7 <6.6 NG/ML Myoglobin 30.9 10.0-92.0 NG/ML Troponin I < 0.028 <0.028 NG/ML C-Reactive Protein High Sensitivity 0.12 0.00-0.50 MG/DL B-Type Natriuretic Peptide < 10.0 <100.0 PG/ML Total Protein 7.8 6.9 6.4-8.2 GM/DL Albumin 4.5 4.0 3.2-4.5 GM/DL Procalcitonin 0.02 <0.10 NG/ML Influenza Type A (RT-PCR) Not Detected Not Detecte Influenza Type B (RT-PCR) Not Detected Not Detecte SARS-CoV-2 RNA (RT-PCR) Not Detected Not Detecte Urine Color YELLOW Urine Clarity CLEAR Urine pH 6.5 5-9 Urine Specific [place] 1.010 L 1.016-1.022 Urine Protein NEGATIVE NEGATIVE Urine Glucose (UA) NEGATIVE NEGATIVE Urine Ketones NEGATIVE NEGATIVE Urine Nitrite NEGATIVE NEGATIVE Urine Bilirubin NEGATIVE NEGATIVE Urine Urobilinogen 0.2 < = 1.0 MG/DL Urine Leukocyte Esterase NEGATIVE NEGATIVE Urine RBC (Auto) NEGATIVE NEGATIVE Urine RBC NONE /HPF Urine WBC RARE /HPF Urine Squamous Epithelial Cells RARE /HPF Urine Renal Epithelial Cells NONE /HPF Urine Crystals NONE /LPF Urine Bacteria NEGATIVE /HPF Urine Casts NONE /LPF Urine Mucus NEGATIVE /LPF Urine Culture Indicated NO Radiology 05/02/22 CXR no acute abnormalities Physical Exam-([facility]) Physical Exam Vital Signs VS - Last 72 Hours, by Label 05/02/22 05/02/22 05/02/22 05/02/22 18:00 18:00 18:00 19:31 Temp 36.5 Pulse 98 90 Resp 28 22 B/P (MAP) 204/98 (133) Pulse Ox 93 98 96 O2 Delivery Nasal Cannula Nasal Cannula O2 Flow Rate 3.00 3.00 28.00 05/02/22 05/02/22 05/02/22 05/02/22 21:37 22:00 22:07 22:11 Temp 36.0 Pulse 77 85 85 Resp 24 29 B/P (MAP) 120/52 152/63 (96) Pulse Ox 94 95 95 O2 Delivery NIV Bilevel NIV Bilevel O2 Flow Rate 28.00 FiO2 28 05/02/22 05/02/22 05/02/22 05/02/22 22:15 22:17 22:30 22:45 Pulse 82 73 77 Resp 22 21 21 B/P (MAP) 142/56 (90) 128/58 (80) 120/64 (90) Pulse Ox 95 95 95 94 O2 Delivery NIV Bilevel NIV Bilevel NIV Bilevel NIV Bilevel O2 Flow Rate 28.00 28.00 28.00 FiO2 28 05/02/22 05/02/22 05/02/22 05/03/22 23:00 23:30 23:59 00:00 Pulse 92 68 77 Resp 23 B/P (MAP) 100/54 (83) 112/64 (84) 117/58 (91) Pulse Ox 97 94 96 94 O2 Delivery NIV Bilevel NIV Bilevel NIV Bilevel NIV Bilevel O2 Flow Rate 28.00 28.00 28.00 FiO2 28 05/03/22 05/03/22 05/03/22 05/03/22 00:29 00:30 01:00 01:00 Temp 36.7 Pulse 71 71 74 74 Resp 23 22 21 B/P (MAP) 117/58 (77) 103/51 (85) 104/61 (75) Pulse Ox 93 93 95 O2 Delivery NIV Bilevel NIV Bilevel NIV Bilevel O2 Flow Rate 28.00 28.00 05/03/22 05/03/22 05/03/22 05/03/22 02:00 02:13 03:00 04:00 Pulse 85 77 96 77 Resp 23 B/P (MAP) 129/72 (87) 133/71 (99) 108/57 (85) Pulse Ox 96 96 94 93 O2 Delivery NIV Bilevel NIV Bilevel NIV Bilevel O2 Flow Rate 28.00 28.00 28.00 28.00 05/03/22 05/03/22 05/03/22 05/03/22 04:00 04:11 07:19 07:20 Temp 35.7 Pulse 65 76 Resp 21 Pulse Ox 94 95 O2 Delivery NIV Bilevel O2 Flow Rate 28.00 FiO2 28 05/03/22 05/03/22 05/03/22 05/03/22 07:31 07:37 08:42 10:46 Temp 36.1 Pulse 80 Resp 35 B/P (MAP) 126/74 (91) Pulse Ox 94 96 93 93 O2 Delivery NIV Bilevel NIV Bilevel Nasal Cannula Nasal Cannula O2 Flow Rate 28.00 2.00 2.00 FiO2 28 05/03/22 05/03/22 05/03/22 05/03/22 11:41 12:00 13:25 15:13 Temp 36.2 Pulse 84 95 76 Resp 18 24 B/P (MAP) 118/56 (76) 103/52 (69) Pulse Ox 94 94 92 O2 Delivery Nasal Cannula Nasal Cannula Nasal Cannula O2 Flow Rate 2.00 2.00 2.00 Capillary Refill : General Appearance: other (appears chronically ill) Respiratory: decreased breath sounds Cardiovascular: regular rate, rhythm, no murmur Gastrointestinal: normal bowel sounds Extremities: no pedal edema, normal capillary refill Neurologic/Psychiatric: alert, normal mood/affect, oriented x 3 Skin: normal color, warm/dry Assessment/Plan Assessment/Plan Admission Status: Inpatient Order (span 2 midnights) Reason for Inpatient Admission: COPD exacerbation with comorbidities (1) Acute and chronic respiratory failure Status: Acute (2) COPD with acute exacerbation Status: Acute Assessment & Plan: Prednisone, ceftriaxone, Duonebs. Resume home inhalers. (3) Hypercapnia Status: Acute Assessment & Plan: Secondary to COPD exacerbation, Bipap used overnight. (4) Oxygen dependent Status: Chronic (5) HX: breast cancer Status: Chronic (6) Hypertension Status: Chronic Assessment & Plan: Resume home meds. Qualifiers: Qualified Codes: I10 - Essential (primary) hypertension (7) Hyperlipemia Status: Chronic (8) Diabetes Status: Chronic Assessment & Plan: Diabetic diet, sliding scale insulin. Qualifiers: Qualified Codes: E11.69 - Type 2 diabetes mellitus with other specified complication; Z79.4 - [facility] (current) use of insulin (9) Anxiety Status: Acute (10) DVT prophylaxis Status: Acute Assessment & Plan: Enoxaparin ROCÍO DOYLE MD May 03, 2022 09:41
[2022-05-03] MEDS ORDERED: CALC600T91 PO (09:51)
[2022-05-03] MEDS ORDERED: LISI5TAB20 PO (09:51)
[2022-05-03] MEDS ORDERED: MECO10005 PO (09:51)
[2022-05-03] MEDS ORDERED: METF-865 PO (09:51)
[2022-05-03] MEDS: PANTOPRAZOLE 40 MG (PROTONIX) TAB PO SCH ×2 (10:26→21:30)
[2022-05-03] MEDS: lisINopril 5 MG (PRINIVIL) TABLET PO SCH (10:27)
[2022-05-03] MEDS ORDERED: CYAN50003 PO (10:53)
[2022-05-03] MEDS ORDERED: ASCO500T71 PO (10:53)
[2022-05-03] MEDS ORDERED: CHOL10007 PO (10:53)
[2022-05-03] MEDS ORDERED: ALBU2.5V4 NEB (10:53)
[2022-05-03] MEDS: BENZONATATE 100 MG (TESSALON) CAPSULE PO SCH ×2 (12:25→21:29)
[2022-05-03] MEDS: RT--FLUTICASONE/SALMETEROL 113-14 (AIRDUO RespiCLICK) IH SCH (18:44)
[2022-05-03] MEDS ORDERED: cefTRIAXone 1 GM PRE-MIX 50 ML IV SCH (19:30)
[2022-05-03] MEDS ORDERED: INSULIN GLARGINE HUM REC ANLOG 25 UNIT SQ SCH (21:00)
[2022-05-03] MEDS ORDERED: ADVAIR HFA 115/21 MCG INHALER 8 GM IH SCH (21:00)
[2022-05-03] MEDS ORDERED: [UNRECOGNIZED DRUG - OTHER] SQ SCH (21:00)
[2022-05-03] MEDS: SERTRALINE 50 MG (ZOLOFT) TABLET PO SCH (21:29)
[2022-05-03] MEDS: SERTRALINE 100 MG (ZOLOFT) TAB PO SCH (21:30)
[2022-05-03] MEDS: MONTELUKAST 10 MG (SINGULAIR) TAB PO SCH (21:30)
[2022-05-04] VITALS: BP 106/46
[2022-05-04] MEDS: RT-ALBUTEROL/IPRATROPIUM 3 ML (DUONEB) VIAL IH SCH ×6 (02:24→22:15)
[2022-05-04 02:25] VITALS: BP 106/46
[2022-05-04 04:05] VITALS: BP 121/60
[2022-05-04 05:11] LABS: HEMATOCRIT 35 % (35-52); HEMOGLOBIN 11.4 g/dL (11.5-16.0); MEAN CORPUSCULAR HEMOGLOBIN 27 pg (25-34); MEAN CORPUSCULAR HGB CONC 32 g/dL (32-36); MEAN CORPUSCULAR VOLUME 83 fL (80-99); MEAN PLATELET VOLUME 11.9 fL (9.0-12.2); PLATELET COUNT 217 10^3/uL (130-400); WHITE BLOOD COUNT 14.6 10^3/uL (4.3-11.0)
[2022-05-04 05:35] LABS: BILIRUBIN,TOTAL 0.3 MG/DL (0.1-1.0); CALCIUM 9.4 MG/DL (8.5-10.1); CREATININE SERUM 0.74 MG/DL (0.60-1.30); POTASSIUM 4.2 MMOL/L (3.6-5.0); TOTAL PROTEIN 6.8 GM/DL (6.4-8.2)
[2022-05-04] MEDS: RT--FLUTICASONE/SALMETEROL 113-14 (AIRDUO RespiCLICK) IH SCH ×2 (07:00→21:10)
[2022-05-04] MEDS: predniSONE 20 MG TAB PO SCH (08:28)
[2022-05-04] MEDS: PANTOPRAZOLE 40 MG (PROTONIX) TAB PO SCH ×2 (08:28→20:06)
[2022-05-04] MEDS: lisINopril 5 MG (PRINIVIL) TABLET PO SCH (08:28)
[2022-05-04] MEDS: BENZONATATE 100 MG (TESSALON) CAPSULE PO SCH ×3 (08:29→20:06)
[2022-05-04] MEDS: ENOXAPARIN 40 MG/0.4 ML (LOVENOX) SYR SC SCH (08:29)
[2022-05-04] MEDS: LETROZOLE 2.5 MG (FEMARA) TAB PO SCH (08:31)
[2022-05-04 08:32] VITALS: BP 101/70
[2022-05-04 12:00] VITALS: BP 121/54
--- NOTE | 2022-05-04 13:00 | Progress Note ---
MARIZA BAUTISTA 05/04/22 1300: Subjective Subjective/Events-last exam Our patient is a 61 yo F admitted to cardiac step down unit for COPD exacerbation. Today Ms. Jenkins reports she is feelings good but continues aggressive coughing. She feels that her lungs are more clear. States she is short of breath and had a headaches this morning. Breathing alright at rest while in bed on her oxygen. She can ambulate without difficulty to the bathroom but reports that she becomes increasingly short of breath as she continues activity such as hand washing and getting dressed. Believes using the bipap, inhalers, and nebulizer treatments have helped her. She wear O2 at home but does not use bipap at home. Does not monitor her glucose at home. Denies chest pain, nausea, vomiting, constipation, diarrhea. Review of Systems HEENT: Head Aches Pulmonary: Dyspnea, Cough Focused Exam Lactate Level 05/02/22 18:25: Lactic Acid Level 1.23 Objective Exam Last Set of Vital Signs Vital Signs Date Time Temp Pulse Resp B/P (MAP) Pulse Ox O2 Delivery O2 Flow Rate FiO2 05/04/22 12:00 86 20 121/54 (76) 95 Nasal Cannula 2.00 05/04/22 08:00 36.4 05/03/22 20:00 3 Capillary Refill : I&O Intake and Output 05/04/22 00:00 Intake Total 1070 ml Output Total 200 ml Balance 870 ml Intake Oral 1070 ml Output Urine Total 200 ml # Voids 5 # Urine Diapers 1 General: Alert, Oriented X3, Cooperative, Mild Distress (uncomfortable due to frequent harsh cough) HEENT: PERRLA, EOMI Lungs: Other (little air movement) Heart: Regular Rate, Normal S1, Normal S2, No Murmurs Abdomen: Normal Bowel Sounds, Soft, No Tenderness Extremities: No Edema, Normal Pulses Neuro: Strength at 5/5 X4 Ext, Normal Tone, Sensation Intact Psych/Mental Status: Mood NL Results/Procedures Lab Laboratory Tests 05/03/22 20:03: Glucometer 172H 05/04/22 04:47: White Blood Count 14.6H, Red Blood Count 4.26, Hemoglobin 11.4L, Hematocrit 35, Mean Corpuscular Volume 83, Mean Corpuscular Hemoglobin 27, Mean Corpuscular Hemoglobin Concent 32, Red Cell Distribution Width 14.2, Platelet Count 217, Mean Platelet Volume 11.9, Sodium Level 142, Potassium Level 4.2, Chloride Level 103, Carbon Dioxide Level 23, Anion Gap 16H, Blood Urea Nitrogen 18, Creatinine 0.74, Estimat Glomerular Filtration Rate 91, BUN/Creatinine Ratio 24, Glucose Level 129H, Calcium Level 9.4, Corrected Calcium 9.4, Total Bilirubin 0.3, Aspartate Amino Transf (AST/SGOT) 13, Alanine Aminotransferase (ALT/SGPT) 16, Alkaline Phosphatase 87, Total Protein 6.8, Albumin 4.0 Microbiology 05/02/22 Blood Culture - Preliminary, Resulted No growth Laboratory Tests Test 05/02/22 18:24 05/02/22 18:25 05/02/22 18:46 05/03/22 05:15 Range/Units Blood Gas Puncture Site R RADIAL Blood Gas Patient Temperature 36.5 Arterial Blood pH 7.34 *L 7.37-7.43 Arterial Blood Partial Pressure CO2 58 H 35-45 MMHG Arterial Blood Partial Pressure O2 99 H 79-93 MMHG Arterial Blood HCO3 30 H 23-27 MMOL/L Arterial Blood Total CO2 32.1 H 21.0-31.0 MMOL/L Arterial Blood Oxygen Saturation 98 94-100 % Arterial Blood Base Excess 4.7 H -2.5-2.5 MMOL/L Wes Test NA Blood Gas Ventilator Setting NO Blood Gas Inspired Oxygen 3L White Blood Count 16.6 H 10.8 4.3-11.0 10^3/uL Red Blood Count 4.78 4.29 3.80-5.11 10^6/uL Hemoglobin 12.6 11.5 11.5-16.0 g/dL Hematocrit 39 35 35-52 % Mean Corpuscular Volume 82 82 80-99 fL Mean Corpuscular Hemoglobin 26 27 25-34 pg Mean Corpuscular Hemoglobin Concent 32 33 32-36 g/dL Red Cell Distribution Width 13.7 13.8 10.0-14.5 % Platelet Count 265 216 130-400 10^3/uL Mean Platelet Volume 11.7 12.1 9.0-12.2 fL Immature Granulocyte % (Auto) 0 % Neutrophils (%) (Auto) 61 42-75 % Lymphocytes (%) (Auto) 22 12-44 % Monocytes (%) (Auto) 7 0-12 % Eosinophils (%) (Auto) 9 0-10 % Basophils (%) (Auto) 0 0-10 % Neutrophils # (Auto) 10.2 H 1.8-7.8 10^3/uL Lymphocytes # (Auto) 3.7 1.0-4.0 10^3/uL Monocytes # (Auto) 1.1 H 0.0-1.0 10^3/uL Eosinophils # (Auto) 1.5 H 0.0-0.3 10^3/uL Basophils # (Auto) 0.1 0.0-0.1 10^3/uL Immature Granulocyte # (Auto) 0.1 0.0-0.1 10^3/uL Neutrophils % (Manual) 56 % Lymphocytes % (Manual) 25 % Monocytes % (Manual) 6 % Eosinophils % (Manual) 13 % Blood Morphology Comment NORMAL Erythrocyte Sedimentation Rate 18 0-30 MM/HR Prothrombin Time 12.9 12.2-14.7 SEC INR Comment 0.9 0.8-1.4 Activated Partial Thromboplast Time 29 24-35 SEC D-Dimer <= 0.27 0.00-0.49 UG/ML Sodium Level 139 140 135-145 MMOL/L Potassium Level 4.2 4.1 3.6-5.0 MMOL/L Chloride Level 102 103 98-107 MMOL/L Carbon Dioxide Level 28 24 21-32 MMOL/L Anion Gap 9 13 5-14 MMOL/L Blood Urea Nitrogen 11 14 7-18 MG/DL Creatinine 0.69 0.71 0.60-1.30 MG/DL Estimat Glomerular Filtration Rate 98 96 BUN/Creatinine Ratio 16 20 Glucose Level 118 H 221 H 70-105 MG/DL Lactic Acid Level 1.23 0.50-2.00 MMOL/L Calcium Level 9.9 9.8 8.5-10.1 MG/DL Corrected Calcium 9.5 9.8 8.5-10.1 MG/DL Magnesium Level 1.9 1.6-2.4 MG/DL Total Bilirubin 0.3 0.2 0.1-1.0 MG/DL Aspartate Amino Transf (AST/SGOT) 17 14 5-34 U/L Alanine Aminotransferase (ALT/SGPT) 20 17 0-55 U/L Alkaline Phosphatase 107 98 40-136 U/L Total Creatine Kinase 61 29-168 U/L Creatine Kinase MB 1.7 <6.6 NG/ML Myoglobin 30.9 10.0-92.0 NG/ML Troponin I < 0.028 <0.028 NG/ML C-Reactive Protein High Sensitivity 0.12 0.00-0.50 MG/DL B-Type Natriuretic Peptide < 10.0 <100.0 PG/ML Total Protein 7.8 6.9 6.4-8.2 GM/DL Albumin 4.5 4.0 3.2-4.5 GM/DL Procalcitonin 0.02 <0.10 NG/ML Influenza Type A (RT-PCR) Not Detected Not Detecte Influenza Type B (RT-PCR) Not Detected Not Detecte SARS-CoV-2 RNA (RT-PCR) Not Detected Not Detecte Urine Color YELLOW Urine Clarity CLEAR Urine pH 6.5 5-9 Urine Specific [place] 1.010 L 1.016-1.022 Urine Protein NEGATIVE NEGATIVE Urine Glucose (UA) NEGATIVE NEGATIVE Urine Ketones NEGATIVE NEGATIVE Urine Nitrite NEGATIVE NEGATIVE Urine Bilirubin NEGATIVE NEGATIVE Urine Urobilinogen 0.2 < = 1.0 MG/DL Urine Leukocyte Esterase NEGATIVE NEGATIVE Urine RBC (Auto) NEGATIVE NEGATIVE Urine RBC NONE /HPF Urine WBC RARE /HPF Urine Squamous Epithelial Cells RARE /HPF Urine Renal Epithelial Cells NONE /HPF Urine Crystals NONE /LPF Urine Bacteria NEGATIVE /HPF Urine Casts NONE /LPF Urine Mucus NEGATIVE /LPF Urine Culture Indicated NO Test 05/03/22 20:03 05/04/22 04:47 Range/Units Glucometer 172 H 70-110 MG/DL White Blood Count 14.6 H 4.3-11.0 10^3/uL Red Blood Count 4.26 3.80-5.11 10^6/uL Hemoglobin 11.4 L 11.5-16.0 g/dL Hematocrit 35 35-52 % Mean Corpuscular Volume 83 80-99 fL Mean Corpuscular Hemoglobin 27 25-34 pg Mean Corpuscular Hemoglobin Concent 32 32-36 g/dL Red Cell Distribution Width 14.2 10.0-14.5 % Platelet Count 217 130-400 10^3/uL Mean Platelet Volume 11.9 9.0-12.2 fL Sodium Level 142 135-145 MMOL/L Potassium Level 4.2 3.6-5.0 MMOL/L Chloride Level 103 98-107 MMOL/L Carbon Dioxide Level 23 21-32 MMOL/L Anion Gap 16 H 5-14 MMOL/L Blood Urea Nitrogen 18 7-18 MG/DL Creatinine 0.74 0.60-1.30 MG/DL Estimat Glomerular Filtration Rate 91 BUN/Creatinine Ratio 24 Glucose Level 129 H 70-105 MG/DL Calcium Level 9.4 8.5-10.1 MG/DL Corrected Calcium 9.4 8.5-10.1 MG/DL Total Bilirubin 0.3 0.1-1.0 MG/DL Aspartate Amino Transf (AST/SGOT) 13 5-34 U/L Alanine Aminotransferase (ALT/SGPT) 16 0-55 U/L Alkaline Phosphatase 87 40-136 U/L Total Protein 6.8 6.4-8.2 GM/DL Albumin 4.0 3.2-4.5 GM/DL Radiology 05/02/22 CXR no acute abnormalities Assessment/Plan Assessment/Plan Admission Dx COPD exacerbation Admission Status: Observation (1) Acute and chronic respiratory failure Status: Acute (2) COPD with acute exacerbation Status: Acute Assessment & Plan: Prednisone, ceftriaxone, Duonebs. Resume home inhalers. 05/04: continue Prednisone, Duonebs. Resume home inhalers. Stop ceftriaxone. Reassess tomorrow for discharge. (3) Hypercapnia Status: Acute Assessment & Plan: Secondary to COPD exacerbation, Bipap used overnight. 05/04: continue use of bipap (4) Oxygen dependent Status: Chronic Assessment & Plan: 05/04: Continue O2 administration (5) HX: breast cancer Status: Chronic (6) Hypertension Status: Chronic Assessment & Plan: Resume home meds. Qualifiers: Qualified Codes: I10 - Essential (primary) hypertension (7) Hyperlipemia Status: Chronic (8) Diabetes Status: Chronic Assessment & Plan: Diabetic diet, sliding scale insulin. 05/04: Continue ADA diet, sliding scale insulin. Qualifiers: Qualified Codes: E11.69 - Type 2 diabetes mellitus with other specified complication; Z79.4 - nursing home (current) use of insulin (9) Anxiety Status: Acute (10) DVT prophylaxis Status: Acute Assessment & Plan: Enoxaparin Supervisory-Addendum Brief Verification & Attestation Participated in pt care: history, physical Personally performed: supervision of care Care discussed with: Medical Student Procedures: supervised ELATHA JUSTIN MD 05/04/22 1338: Supervisory-Addendum Brief Verification & Attestation Verification and Attestation of Medical Student E/M Service A medical student performed and documented this service in my presence. I reviewed and verified all information documented by the medical student and made modifications to such information, when appropriate. I personally performed the physical exam and medical decision making. Leatha Justin, May 04, 2022,13:38 MARIZA BAUTISTA May 04, 2022 13:00 LEATHA JUSTIN MD May 04, 2022 13:38
[2022-05-04 20:00] VITALS: BP 121/54
[2022-05-04] MEDS: MONTELUKAST 10 MG (SINGULAIR) TAB PO SCH (20:06)
[2022-05-04] MEDS: SERTRALINE 50 MG (ZOLOFT) TABLET PO SCH (20:06)
[2022-05-04] MEDS: SERTRALINE 100 MG (ZOLOFT) TAB PO SCH (20:06)
[2022-05-05] VITALS (7 sets, daily range): BP systolic 97–146; BP diastolic 55–76
[2022-05-05] MEDS: RT-ALBUTEROL/IPRATROPIUM 3 ML (DUONEB) VIAL IH SCH ×4 (02:55→15:25)
[2022-05-05 06:06] LABS: HEMATOCRIT 36 % (35-52); HEMOGLOBIN 11.3 g/dL (11.5-16.0); MEAN CORPUSCULAR HEMOGLOBIN 26 pg (25-34); MEAN CORPUSCULAR HGB CONC 31 g/dL (32-36); MEAN CORPUSCULAR VOLUME 84 fL (80-99); MEAN PLATELET VOLUME 12.1 fL (9.0-12.2); PLATELET COUNT 216 10^3/uL (130-400); WHITE BLOOD COUNT 12.4 10^3/uL (4.3-11.0)
[2022-05-05 06:17] LABS: ALBUMIN 4.1 GM/DL (3.2-4.5)
[2022-05-05 06:18] LABS: POTASSIUM 4.3 MMOL/L (3.6-5.0)
[2022-05-05 06:19] LABS: CALCIUM 9.4 MG/DL (8.5-10.1)
[2022-05-05 06:22] LABS: BILIRUBIN,TOTAL 0.3 MG/DL (0.1-1.0)
[2022-05-05 06:24] LABS: CREATININE SERUM 0.74 MG/DL (0.60-1.30)
[2022-05-05] MEDS ORDERED: metFORMIN XR 500 MG (GLUCOPHAGE XR) TAB PO SCH (07:00)
[2022-05-05] MEDS: RT--FLUTICASONE/SALMETEROL 113-14 (AIRDUO RespiCLICK) IH SCH (07:32)
[2022-05-05] MEDS ORDERED: PRD20T PO (08:15)
[2022-05-05] MEDS: ENOXAPARIN 40 MG/0.4 ML (LOVENOX) SYR SC SCH (09:12)
[2022-05-05] MEDS: LETROZOLE 2.5 MG (FEMARA) TAB PO SCH (09:13)
[2022-05-05] MEDS: predniSONE 20 MG TAB PO SCH (09:13)
[2022-05-05] MEDS: PANTOPRAZOLE 40 MG (PROTONIX) TAB PO SCH (09:13)
[2022-05-05] MEDS: lisINopril 5 MG (PRINIVIL) TABLET PO SCH (09:14)
[2022-05-05] MEDS: BENZONATATE 100 MG (TESSALON) CAPSULE PO SCH ×2 (09:14→12:45)
[2022-05-05] MEDS ORDERED: UMEC62.5 IH (10:03)
--- NOTE | 2022-05-05 12:13 | Discharge Summary ---
MARIZA BAUTISTA 05/05/22 1212: Discharge Summary Hospital Course Problems Reviewed?: Yes Problems/Diagnosis: (1) Acute and chronic respiratory failure Status: Acute (2) COPD with acute exacerbation Status: Acute Assessment & Plan: Continue with short term prednisone and home inhalers/nebulizer. Continue with home oxygen. (3) Hypercapnia Status: Acute (4) Oxygen dependent Status: Chronic Assessment & Plan: Continue O2 administration (5) HX: breast cancer Status: Chronic (6) Hypertension Status: Chronic Assessment & Plan: Resume home meds. Qualifiers: Qualified Codes: I10 - Essential (primary) hypertension (7) Hyperlipemia Status: Chronic Assessment & Plan: resume home meds (8) Diabetes Status: Chronic Assessment & Plan: ADA diet. Restart metformin. Continue with insulin. Qualifiers: Qualified Codes: E11.69 - Type 2 diabetes mellitus with other specified complication; Z79.4 - terminal carman (current) use of insulin (9) Anxiety Status: Acute Assessment & Plan: resume home meds (10) DVT prophylaxis Status: Acute Assessment & Plan: Enoxaparin Hospital Course Date of Admission: May 02, 2022 at 20:21 Admission Diagnosis : Family Physician/Provider: [place] Date of Discharge: 05/05/22 Discharge Diagnosis: COPD exacerbation Hospital Course: See Problem List Labs and Pending Lab Test: Laboratory Tests 05/04/22 20:46: Glucometer 205H 05/05/22 05:13: White Blood Count 12.4H, Red Blood Count 4.33, Hemoglobin 11.3L, Hematocrit 36, Mean Corpuscular Volume 84, Mean Corpuscular Hemoglobin 26, Mean Corpuscular Hemoglobin Concent 31L, Red Cell Distribution Width 14.1, Platelet Count 216, Mean Platelet Volume 12.1, Sodium Level 142, Potassium Level 4.3, Chloride Level 102, Carbon Dioxide Level 32, Anion Gap 8, Blood Urea Nitrogen 18, Creatinine 0.74, Estimat Glomerular Filtration Rate 91, BUN/Creatinine Ratio 24, Glucose Level 99, Calcium Level 9.4, Corrected Calcium 9.3, Total Bilirubin 0.3, Aspartate Amino Transf (AST/SGOT) 16, Alanine Aminotransferase (ALT/SGPT) 16, Alkaline Phosphatase 80, Total Protein 7.0, Albumin 4.1 Microbiology 05/02/22 Blood Culture - Preliminary, Resulted No growth Home Meds Active Incruse Ellipta (Umeclidinium [place]) 62.5 Mcg/Actuation Blst.w.dev 62.5 Mcg IH DAILY Prednisone 20 Mg Tab 40 Mg PO Q24HR Reported Vitamin C (Ascorbic Acid) 500 Mg Tab.chew 500 Mg PO DAILY Albuterol Sulfate 2.5 Mg/3 Ml (0.083 %) Vial.neb 3 Ml NEB Q6H PRN Vitamin B-12 (Cyanocobalamin (Vitamin B-12)) 5,000 Mcg Tab.rapdis 5,000 Mcg PO DAILY Vitamin D3 (Cholecalciferol (Vitamin D3)) 25 Mcg (1000 Unit) Capsule 25 Mcg PO DAILY Calcium (Calcium Carbonate) 600 Mg Calcium (1500 Mg) Tablet 600 Mg PO BID Lisinopril 5 Mg Tablet 5 Mg PO DAILY Metformin HCl ER (Metformin HCl) 500 Mg Tab.er.24h 500 Mg PO DAILY Atorvastatin Calcium 20 Mg Tablet 20 Mg PO HS Lantus Solostar (Insulin Glargine,Hum.rec.anlog) 100 Unit/1 Ml Insuln.pen 25 Units SQ HS Montelukast Sodium 10 Mg Tablet 10 Mg PO HS Advair Hfa 115-21 Mcg Inhaler (Fluticasone/Salmeterol) 12 Gm Hfa.aer.ad 2 Puff INH BID Iprat-Albut 0.5-3(2.5) mg/3 ml (Ipratropium/Albuterol Sulfate) 3 Ml Ampul.neb 3 Ml IH TID Trulicity (Dulaglutide) 0.75 Mg/0.5 Ml Pen.injctr 0.75 Mg SQ FRI Proair Hfa (Albuterol Sulfate) 1 Puff Puff 2 Puff IH Q4H PRN Letrozole 2.5 Mg Tablet 2.5 Mg PO DAILY Pantoprazole Sodium 40 Mg Tablet.dr 40 Mg PO BID Sertraline HCl 50 Mg Tablet 50 Mg PO HS TAKES 100MG +50MG TO EQUAL 150MG Sertraline HCl 100 Mg Tablet 100 Mg PO HS TAKES 100MG +50MG TO EQUAL 150MG Assessment/Pt DC Instructions Follow up with PCP within one week of discharge. Discharge Diet: ADA Diet Activity as Tolerated: Yes Discharge Physical Examination Allergies: Coded Allergies: No Known Drug Allergies (Unverified , 06/12/15) General Appearance: No Apparent Distress, WD/WN HEENT: PERRL/EOMI, Moist Mucous Membranes Respiratory: Chest Non Tender, Wheezing Cardiovascular: Regular Rate, Rhythm, Normal Peripheral Pulses Gastrointestinal: Normal Bowel Sounds, Non Tender, Soft Extremity: Normal Inspection, Normal Range of Motion, Non Tender, No Pedal Edema Skin: Normal Color, Warm/Dry Neurologic/Psychiatric: Alert, Oriented x3 Discharge Summary Date of Admission May 02, 2022 at 20:21 Date of Discharge Discharge Date: May 05, 2022 Supervisory-Addendum Brief Verification & Attestation Participated in pt care: history, MDM, physical Personally performed: exam, history, MDM, supervision of care Care discussed with: Medical Student Procedures: supervised ROCÍO DOYLE MD 05/05/22 1549: Discharge Summary Hospital Course Problems/Diagnosis: (1) Acute and chronic respiratory failure Status: Acute (2) COPD with acute exacerbation Status: Acute Assessment & Plan: Continue with short term prednisone and home inhalers/nebulizer. Continue with home oxygen. (3) Hypercapnia Status: Acute (4) Oxygen dependent Status: Chronic Assessment & Plan: Continue O2 administration (5) HX: breast cancer Status: Chronic (6) Hypertension Status: Chronic Assessment & Plan: Resume home meds. Qualifiers: Qualified Codes: I10 - Essential (primary) hypertension (7) Hyperlipemia Status: Chronic Assessment & Plan: resume home meds (8) Diabetes Status: Chronic Assessment & Plan: ADA diet. Restart metformin. Continue with insulin. Qualifiers: Qualified Codes: E11.69 - Type 2 diabetes mellitus with other specified complication; Z79.4 - [facility] (current) use of insulin (9) Anxiety Status: Acute Assessment & Plan: resume home meds Discharge Physical Examination Allergies: Coded Allergies: No Known Drug Allergies (Unverified , 06/12/15) Supervisory-Addendum Brief Verification & Attestation Verification and Attestation of Medical Student E/M Service A medical student performed and documented this service in my presence. I reviewed and verified all information documented by the medical student and made modifications to such information, when appropriate. I personally performed the physical exam and medical decision making. Rocío Doyle, May 05, 2022,15:49 MARIZA BAUTISTA May 05, 2022 12:12 ROCÍO DOYLE MD May 05, 2022 15:49
== END 2022-05-05 17:20 | disposition home or self-care (01) | DRG 189 ==
LOC: EDUNIT# 17:55 → ER 17:57 → CSD 20:21
PROVIDERS: ADMIT Family Medicine; ATTEND Family Medicine
PROC: 5A09357 Assistance with Respiratory Ventilation, Less than 24 Consecutive Hours, Continuous Positive Airway Pressure (ICD-10-PCS; principal; 2022-05-02)
DX: J96.22 Acute and chronic respiratory failure with hypercapnia (principal); J44.1 Chronic obstructive pulmonary disease with (acute) exacerbation; E11.9 Type 2 diabetes mellitus without complications; I10 Essential (primary) hypertension; E78.00 Pure hypercholesterolemia, unspecified; F41.9 Anxiety disorder, unspecified; Z79.4 Long term (current) use of insulin; Z99.81 Dependence on supplemental oxygen; Z87.891 Personal history of nicotine dependence; Z85.3 Personal history of malignant neoplasm of breast; Z20.822 Contact with and (suspected) exposure to COVID-19
CPT/HCPCS: 36415; 71045; 80053; 81000; 82550; 82553; 82805; 82947; 83605; 83735; 83874; 83880; 84145; 84484; 85007; 85027; 85379; 85610; 85652; 85730; 86141; 87040; 87636; 93005; 93041; 94640; 94660; 94664; 94760

== ENCOUNTER 2022-05-25 18:53 | Emergency (ER) | payer MEDICARE ==
[~2022-05-25] VITALS: Ht 163 cm; Wt 64.0 kg
[~2022-05-25 18:53] MED LIST changes: +ALBU2.5V4 NEB; +ALBU8.5H6 IH; +ASCO500T71 PO; +CALC600T91 PO; +CHOL10007 PO; +CYAN50003 PO; +LISI5TAB20 PO; +MECO10005 PO; +METF-865 PO; -RT-ALBUINH IH; +UMEC62.5 IH
--- NOTE | 2022-05-25 19:40 | ED Cough/URI ---
General Chief Complaint: Respiratory Problems Stated Complaint: LOW O2, SOB Nursing Triage Note: increasing soa x7 days worse today, seen by pcp 05/20/22 waiting for pulmonology consult Source: patient Exam Limitations: no limitations History of Present Illness Date Seen by Provider: May 25, 2022 Time Seen by Provider: 19:35 Initial Comments 61-year-old female with history of COPD on 2 L of oxygen via nasal cannula chronically presents emergency department via private vehicle for shortness of breath, especially with exertion. She was admitted to hospital for COPD exacerbation, discharged about a week ago. She states she was feeling okay but the last couple of days without worsening shortness of breath with exertion. She has not increased her home oxygen. She does use her nebulizer twice today. No fevers or chills. She has a chronic productive cough which is unchanged. No chest pain abdominal pain. Allergies and Home Medications Allergies Coded Allergies: No Known Drug Allergies (Unverified , 06/12/15) Patient Home Medication List Home Medication List Reviewed: Yes Albuterol Sulfate (Ventolin Hfa) 1 Puff Puff, 2 PUFF IH Q4H PRN for SHORTNESS OF BREATH, (Reported) Entered as Reported by: EVARISTO LAROSE on 12/10/20 0954 Albuterol Sulfate (Albuterol Sulfate) 2.5 Mg/3 Ml (0.083 %) Vial.neb, 3 ML NEB Q6H PRN for SHORTNESS OF BREATH, (Reported) Entered as Reported by: EVARISTO LAROSE on 05/03/22 1053 Ascorbic Acid (Vitamin C) 500 Mg Tab.chew, 500 MG PO DAILY, (Reported) Entered as Reported by: EVARISTO LAROSE on 05/03/22 1053 Atorvastatin Calcium (Atorvastatin Calcium) 20 Mg Tablet, 20 MG PO HS, (Reported ) Entered as Reported by: EVARISTO LAROSE on 09/14/21 1549 Calcium Carbonate (Calcium) 600 Mg Calcium (1500 Mg) Tablet, 600 MG PO BID, (Reported) Entered as Reported by: LEATHA JUSTIN on 05/03/22 0951 Cholecalciferol (Vitamin D3) (Vitamin D3) 25 Mcg (1000 Unit) Capsule, 25 MCG PO DAILY, (Reported) Entered as Reported by: EVARISTO LAROSE on 05/03/22 1053 Cyanocobalamin (Vitamin B-12) (Vitamin B-12) 5,000 Mcg Tab.rapdis, 5,000 MCG PO DAILY, (Reported) Entered as Reported by: EVARISTO LAROSE on 05/03/22 105 Dulaglutide (Trulicity) 0.75 Mg/0.5 Ml Pen.injctr, 0.75 MG SQ FRI, (Reported) Entered as Reported by: EVARISTO LAROSE on 09/14/21 154 Fluticasone/Salmeterol (Advair Hfa 115-21 Mcg Inhaler) 12 Gm Hfa.aer.ad, 2 PUFF INH BID, (Reported) Entered as Reported by: EVARISTO LAROSE on 09/14/21 154 Insulin Glargine,Hum.rec.anlog (Lantus Solostar) 100 Unit/1 Ml Insuln.pen, 25 UNITS SQ HS, (Reported) Entered as Reported by: EVARISTO LAROSE on 09/14/21 154 Ipratropium/Albuterol Sulfate (Iprat-Albut 0.5-3(2.5) mg/3 ml) 3 Ml Ampul.neb, 3 ML IH TID, (Reported) Entered as Reported by: EVARISTO LAROSE on 09/14/21 154 Letrozole (Letrozole) 2.5 Mg Tablet, 2.5 MG PO DAILY, (Reported) Entered as Reported by: EVARISTO LAROSE on 12/10/20 09 Lisinopril (Lisinopril) 5 Mg Tablet, 5 MG PO DAILY, (Reported) Entered as Reported by: LEATHA JUSTIN on 05/03/22 09 Metformin HCl (Metformin HCl ER) 500 Mg Tab.er.24h, 500 MG PO DAILY, (Reported) Entered as Reported by: LEATHA JUSTIN on 05/03/22 09 Montelukast Sodium (Montelukast Sodium) 10 Mg Tablet, 10 MG PO HS, (Reported) Entered as Reported by: EVARISTO LAROSE on 09/14/21 154 Pantoprazole Sodium (Pantoprazole Sodium) 40 Mg Tablet.dr, 40 MG PO BID, (Reported) Entered as Reported by: EVARISTO LAROSE on 12/10/20 09 Prednisone (Prednisone) 20 Mg Tab, 40 MG PO Q24HR Prescribed by: LEATHA JUSTIN on 05/05/22 0815 Prednisone (Prednisone) 50 Mg Tab, 50 MG PO DAILY Prescribed by: PARISH WANG MD on 05/25/22 2155 Sertraline HCl (Sertraline HCl) 100 Mg Tablet, 100 MG PO HS, (Reported) Entered as Reported by: ABHI ANSARI on 08/20/15 1723 Sertraline HCl (Sertraline HCl) 50 Mg Tablet, 50 MG PO HS, (Reported) Entered as Reported by: EVARISTO LAROSE on 12/10/20 0954 Umeclidinium [place] (Incruse Ellipta) 62.5 Mcg/Actuation Blst.w.dev, 62.5 MCG IH DAILY Prescribed by: LEATHA JUSTIN on 05/05/22 1003 Review of Systems Review of Systems Constitutional: no symptoms reported EENTM: no symptoms reported Respiratory: cough, dyspnea on exertion Cardiovascular: no symptoms reported Gastrointestinal: no symptoms reported Genitourinary: no symptoms reported Musculoskeletal: no symptoms reported Skin: no symptoms reported Psychiatric/Neurological: No Symptoms Reported Hematologic/Lymphatic: No Symptoms Reported Immunological/Allergic: no symptoms reported Past Znpiafq-Glamgs-Ngssaq Hx Patient Social History Tobacco Use?: Yes Substance use?: No Alcohol Use?: No Pt feels they are or have been: No Immunizations Up To Date PED Vaccines UTD: Yes First/Initial COVID19 Vaccinat: N/A Second COVID19 Vaccination Corby: N/A Third COVID19 Vaccination Date: N/A Past Medical History Surgery/Hospitalization HX: COPD, iddm, gerd, high cholesterol, asthma, bilateral mastectomy, tubal, hernia, home o2 Surgeries: Yes (HERNIA, BI LAT MASECTOMY) Abdominal, Breast, Tubal Ligation Respiratory: Yes (Uses oxygen at 2 L continuously) Pneumonia, COPD Cardiac: Yes High Cholesterol, Hypertension Neurological: Yes (VASOVAGAL SYNCOPE VS SEIZURE) Headaches /Migraines [employer] History: Tubal Ligation, Menopausal Genitourinary: No Gastrointestinal: Yes (ESOPHAGEAL SPASMS) Musculoskeletal: Yes Arthritis Endocrine: Yes Diabetes, Non-Insulin dep HEENT: No Cancer: Yes Breast Did You Recieve Any Treatments: Yes What Type of Treatment Did You: Surgical Intervention Psychosocial: Yes Anxiety, Depression Integumentary: Yes Psoriasis Blood Disorders: No Family Medical History Reviewed Nursing Family Hx Cancer, Diabetes, Psychiatric Problems Physical Exam Vital Signs - First Documented 05/25/22 19:11 Temp 37.1 Pulse 98 Resp 20 B/P (MAP) 123/95 (104) Pulse Ox 93 O2 Delivery Nasal Cannula O2 Flow Rate 2.00 Capillary Refill : Height: 5'3.00" Weight: 139lbs. 0.0oz. 63.439969uo; 24.00 BMI Method:Stated General Appearance: WD/WN, no apparent distress HEENT: normal ENT inspection, pharynx normal Neck: non-tender, full range of motion, supple, normal inspection Respiratory: chest non-tender, other (Diffuse inspiratory and x-ray wheezes bilaterally. Mild increased work of breathing.) Cardiovascular: regular rate, rhythm, no edema, no gallop, no JVD, no murmur Gastrointestinal: normal bowel sounds, non tender, soft, no organomegaly, no pulsatile mass Extremities: normal range of motion, non-tender, normal inspection, no pedal edema, no calf tenderness, normal capillary refill Neurologic/Psychiatric: alert, normal mood/affect, oriented x 3 Skin: normal color, warm/dry Lymphatic: no adenopathy Procedures/Interventions Date of ETT Placement: Jul 24, 2021 Time of ETT Placement: 1130 Progress/Results/Core Measures Suspected Sepsis SIRS Temperature: Pulse: 98 Respiratory Rate: 20 Laboratory Tests 05/25/22 19:47: White Blood Count 11.7H Blood Pressure 123 /95 Mean: 104 Laboratory Tests 05/25/22 19:47: Creatinine 0.89, Platelet Count 228, Total Bilirubin 0.3 Results/Orders Lab Results Laboratory Tests Test 05/25/22 19:46 05/25/22 19:47 Range/Units Influenza Type A (RT-PCR) Not Detected Not Detecte Influenza Type B (RT-PCR) Not Detected Not Detecte SARS-CoV-2 RNA (RT-PCR) Not Detected Not Detecte White Blood Count 11.7 H 4.3-11.0 10^3/uL Red Blood Count 4.79 3.80-5.11 10^6/uL Hemoglobin 12.4 11.5-16.0 g/dL Hematocrit 39 35-52 % Mean Corpuscular Volume 82 80-99 fL Mean Corpuscular Hemoglobin 26 25-34 pg Mean Corpuscular Hemoglobin Concent 32 32-36 g/dL Red Cell Distribution Width 14.1 10.0-14.5 % Platelet Count 228 130-400 10^3/uL Mean Platelet Volume 11.8 9.0-12.2 fL Immature Granulocyte % (Auto) 0 % Neutrophils (%) (Auto) 66 42-75 % Lymphocytes (%) (Auto) 21 12-44 % Monocytes (%) (Auto) 7 0-12 % Eosinophils (%) (Auto) 6 0-10 % Basophils (%) (Auto) 0 0-10 % Neutrophils # (Auto) 7.7 1.8-7.8 10^3/uL Lymphocytes # (Auto) 2.5 1.0-4.0 10^3/uL Monocytes # (Auto) 0.8 0.0-1.0 10^3/uL Eosinophils # (Auto) 0.7 H 0.0-0.3 10^3/uL Basophils # (Auto) 0.0 0.0-0.1 10^3/uL Immature Granulocyte # (Auto) 0.0 0.0-0.1 10^3/uL Sodium Level 141 135-145 MMOL/L Potassium Level 3.9 3.6-5.0 MMOL/L Chloride Level 102 98-107 MMOL/L Carbon Dioxide Level 26 21-32 MMOL/L Anion Gap 13 5-14 MMOL/L Blood Urea Nitrogen 9 7-18 MG/DL Creatinine 0.89 0.60-1.30 MG/DL Estimat Glomerular Filtration Rate 73 BUN/Creatinine Ratio 10 Glucose Level 259 H 70-105 MG/DL Calcium Level 9.7 8.5-10.1 MG/DL Corrected Calcium 9.6 8.5-10.1 MG/DL Total Bilirubin 0.3 0.1-1.0 MG/DL Aspartate Amino Transf (AST/SGOT) 14 5-34 U/L Alanine Aminotransferase (ALT/SGPT) 21 0-55 U/L Alkaline Phosphatase 98 40-136 U/L Troponin I < 0.028 <0.028 NG/ML Total Protein 7.1 6.4-8.2 GM/DL Albumin 4.1 3.2-4.5 GM/DL My Orders Orders - PARISH WANG DO Comprehensive Metabolic Panel (05/25/22 19:39) Ekg Tracing (05/25/22 19:39) Troponin I Vicente (05/25/22 19:39) Chest 1 View, Ap/Pa Only (05/25/22 19:39) Covid 19 Inhouse Test (05/25/22 19:39) Cbc With Automated Diff (05/25/22 19:39) Influenza A And B By Pcr (05/25/22 19:39) Methylprednisolone Sod Succ (Solu-Medrol (05/25/22 19:45) Svn Small Volume Nebulizer (05/25/22 19:39) Albuterol Pre-Mix Nebs (Rt) (Proventil (05/25/22 20:45) Albuterol Pre-Mix Nebs (Rt) (Proventil (05/25/22 20:46) Medications Given in ED Current Medications Medications Dose Ordered Sig/Patrick Route Start Time Stop Time Status Last Admin Dose Admin Albuterol Sulfate 12.5 mg ONCE ONCE INH 05/25/22 20:45 05/25/22 20:46 DC 05/25/22 20:50 12.5 MG Methylprednisolone Sodium Succinate 125 mg ONCE ONCE IVP 05/25/22 19:45 05/25/22 19:46 DC 05/25/22 19:51 125 MG Vital Signs/I&O 05/25/22 05/25/22 05/25/22 19:11 19:11 20:51 Temp 37.1 Pulse 98 Resp 20 B/P (MAP) 123/95 (104) Pulse Ox 93 93 O2 Delivery Nasal Cannula Nasal Cannula O2 Flow Rate 2.00 3.00 3.00 Capillary Refill : Blood Pressure Mean: 104 Departure Communication (Admissions) Patient is feeling much better after hour-long breathing treatment. Oxygen saturation between 92 to 94% on 3 L oxygen via nasal cannula. She typically uses 2 L of oxygen via nasal cannula at home. I discussed admission versus discharge. She opts for discharge using her nebulizer every 3-4 hours with rescue inhaler in between. She will start another course of oral steroids. No indication for antibiotics at present. Given strict return precautions. Evolutions reliable return if she has trouble. She is discharged home in stable condition with supportive care. Impression Primary Impression: COPD exacerbation Disposition: HOME, SELF-CARE Condition: Stable Departure-Patient Inst. Referrals: [facility] (PCP/Family) Primary Care Physician Patient Instructions: COPD Exacerbation, Adult ED, Oral Steroid Medicines Add. Discharge Instructions: Please take the steroid medication daily as prescribed. Use your nebulizer every 3-4 hours. Use your rescue inhaler in between if necessary. You may take her oxygen up to 4 L via nasal cannula but if you need to go over this you need to return to the emergency department. As discussed if your symptoms change in any way concerning to you, you may need to be admitted to the hospital. Return to the emergency department for any severe concerns. Follow-up with your primary doctor in the next 48 hours for reevaluation All discharge instructions reviewed with patient and/or family. Voiced understanding. Scripts Prednisone (Prednisone) 50 Mg Tab 50 MG PO DAILY for 5 Days, #5 TAB Prov: PARISH WANG DO 05/25/22 PARISH WANG DO May 25, 2022 19:40
[2022-05-25] MEDS ORDERED: RT-ALBUTEROL/IPRATROPIUM 3 ML (DUONEB) VIAL INH ONE (19:45)
[2022-05-25] MEDS ORDERED: methylPREDNISolone 125 MG (Solu-MEDROL) VIAL IVP ONE (19:45)
[2022-05-25 19:57] LABS: BASOPHILS % (AUTO) 0 % (0-10); EOSINOPHILS # (AUTO) 0.7 10^3/uL (0.0-0.3); EOSINOPHILS % (AUTO) 6 % (0-10); HEMATOCRIT 39 % (35-52); HEMOGLOBIN 12.4 g/dL (11.5-16.0); LYMPHOCYTES # (AUTO) 2.5 10^3/uL (1.0-4.0); LYMPHOCYTES % (AUTO) 21 % (12-44); MEAN CORPUSCULAR HEMOGLOBIN 26 pg (25-34); MEAN CORPUSCULAR HGB CONC 32 g/dL (32-36); MEAN CORPUSCULAR VOLUME 82 fL (80-99); MEAN PLATELET VOLUME 11.8 fL (9.0-12.2); MONOCYTES # (AUTO) 0.8 10^3/uL (0.0-1.0); MONOCYTES % (AUTO) 7 % (0-12); NEUTROPHILS # (AUTO) 7.7 10^3/uL (1.8-7.8); NEUTROPHILS % (AUTO) 66 % (42-75); PLATELET COUNT 228 10^3/uL (130-400); WHITE BLOOD COUNT 11.7 10^3/uL (4.3-11.0)
[2022-05-25 20:10] LABS: ALBUMIN 4.1 GM/DL (3.2-4.5)
[2022-05-25 20:11] LABS: CHLORIDE 102 MMOL/L (98-107); POTASSIUM 3.9 MMOL/L (3.6-5.0); SODIUM 141 MMOL/L (135-145)
[2022-05-25 20:12] LABS: CALCIUM 9.7 MG/DL (8.5-10.1)
[2022-05-25 20:13] LABS: GLUCOSE 259 MG/DL (70-105); TOTAL PROTEIN 7.1 GM/DL (6.4-8.2)
[2022-05-25 20:14] LABS: CARBON DIOXIDE 26 MMOL/L (21-32)
[2022-05-25 20:15] LABS: BILIRUBIN,TOTAL 0.3 MG/DL (0.1-1.0)
[2022-05-25 20:16] LABS: ALKALINE PHOSPHATASE 98 U/L (40-136)
[2022-05-25 20:17] LABS: CREATININE SERUM 0.89 MG/DL (0.60-1.30); GFR ESTIMATED 73
[2022-05-25 20:18] LABS: BUN/CREATININE RATIO 10
[2022-05-25 20:19] LABS: ALANINE AMINOTRANSFERASE 21 U/L (0-55)
--- NOTE | 2022-05-25 20:29 | Diagnostic Imaging Report ---
INDICATION: dyspnea COMPARISON: 09/11/2021 FINDINGS: Single frontal view of the chest demonstrates normal heart size and pulmonary vascularity. Evaluation of the lung lombardi demonstrates 1.8 cm opacity partially obscuring the left heart border and the left lower lung. Otherwise, lungs are clear. There is no large effusion or pneumothorax. Osseous structures show no acute abnormalities. IMPRESSION: 1. No evidence of failure or focal infiltrate. 2. Nodular opacity partially obscuring the left heart border. This could be on the basis of small area of atelectasis or pericardial fat. Soft tissue pulmonary nodule cannot be excluded. Correlation with CT of the chest is recommended and could be performed on nonemergent basis. Dictated by: Dictated on workstation # [id number]
[2022-05-25] MEDS ORDERED: RT-ALBUTEROL SULF 2.5 MG/3 ML PRE-MIX VIAL INH ONE (20:45)
[2022-05-25] MEDS ORDERED: RT-ALBUTEROL SULF 2.5 MG/3 ML PRE-MIX VIAL ONE (20:46)
[2022-05-25] MEDS ORDERED: PRD50T PO (21:55)
[2022-05-25 22:01] VITALS: BP 131/64
== END 2022-05-25 22:03 | disposition home or self-care (01) ==
LOC: EDUNIT# 18:53 → ER 18:55
DX: J44.1 Chronic obstructive pulmonary disease with (acute) exacerbation (principal); Z72.0 Tobacco use; Z20.822 Contact with and (suspected) exposure to COVID-19; Z28.310 Unvaccinated for COVID-19; Z99.81 Dependence on supplemental oxygen
CPT/HCPCS: 36415; 71045; 80053; 84484; 85025; 87636; 93005; 94640

== ENCOUNTER → 2022-06-08 | Outpatient (CLI) | payer MEDICARE ==
[~2022-06-08] MED LIST changes: +PRD50T PO
== END ==
LOC: CARD 14:15
PROVIDERS: ATTEND Internal Medicine Cardiovascular Disease
DX: I10 Essential (primary) hypertension (principal); I25.10 Atherosclerotic heart disease of native coronary artery without angina pectoris
CPT/HCPCS: 93306

== ENCOUNTER 2022-06-22 18:01 | Emergency (ER) | payer MEDICARE ==
[~2022-06-22] VITALS: Ht 162 cm; Wt 63.0 kg
[2022-06-22 18:25] LABS: BASOPHILS % (AUTO) 0 % (0-10); EOSINOPHILS # (AUTO) 0.3 10^3/uL (0.0-0.3); EOSINOPHILS % (AUTO) 3 % (0-10); HEMATOCRIT 40 % (35-52); HEMOGLOBIN 12.7 g/dL (11.5-16.0); LYMPHOCYTES # (AUTO) 2.4 10^3/uL (1.0-4.0); LYMPHOCYTES % (AUTO) 22 % (12-44); MEAN CORPUSCULAR HEMOGLOBIN 26 pg (25-34); MEAN CORPUSCULAR HGB CONC 32 g/dL (32-36); MEAN CORPUSCULAR VOLUME 83 fL (80-99); MEAN PLATELET VOLUME 11.4 fL (9.0-12.2); MONOCYTES % (AUTO) 9 % (0-12); NEUTROPHILS # (AUTO) 7.3 10^3/uL (1.8-7.8); NEUTROPHILS % (AUTO) 67 % (42-75); PLATELET COUNT 273 10^3/uL (130-400); WHITE BLOOD COUNT 10.9 10^3/uL (4.3-11.0)
[2022-06-22 18:26] LABS: ALBUMIN 4.6 GM/DL (3.2-4.5); CHLORIDE 100 MMOL/L (98-107); POTASSIUM 4.1 MMOL/L (3.6-5.0); SODIUM 142 MMOL/L (135-145)
[2022-06-22 18:27] LABS: CALCIUM 10.8 MG/DL (8.5-10.1)
[2022-06-22 18:28] LABS: GLUCOSE 130 MG/DL (70-105); TOTAL PROTEIN 8.4 GM/DL (6.4-8.2)
[2022-06-22 18:29] LABS: ABG BASE EXCESS 7.2 MMOL/L (-2.5-2.5); ABG OXYGEN SATURATION 97 % (94-100); ABG PCO2 64 MMHG (35-45); ABG PO2 97 MMHG (79-93)
[2022-06-22 18:29] LABS: CARBON DIOXIDE 28 MMOL/L (21-32)
[2022-06-22 18:30] LABS: BILIRUBIN,TOTAL 0.4 MG/DL (0.1-1.0)
[2022-06-22 18:32] LABS: ALKALINE PHOSPHATASE 112 U/L (40-136); CREATININE SERUM 0.72 MG/DL (0.60-1.30); GFR ESTIMATED 94
--- NOTE | 2022-06-22 18:32 | ED Respiratory ---
General Chief Complaint: Respiratory Problems Stated Complaint: SOA Nursing Triage Note: PT STATES FOR THE LAST COUPLE OF DAYS SHE HAS INCREASED SOA WHEN SHE IS UP MOVING AROUND. USUALLY WEARS OXYGEN @3L. EMS REPORTS ABOUT A 50 FOOT TUBING ON THE OXYGEN. PT THINKS SHE NEEDS SOMETHNG TO HELP HER RELAX Source: patient Exam Limitations: no limitations History of Present Illness Date Seen by Provider: Jun 22, 2022 Time Seen by Provider: 18:30 Initial Comments To ER with reports of increased shortness of breath the past few days. Increased cough and increase in her use of nebulized albuterol at home. She is oxygen dependent at home at 3 L. Timing/Duration: just prior to arrival Severity: moderate Prior Episodes/Possible Cause: no prior episodes Associated Symptoms: cough, shortness of breath Allergies and Home Medications Allergies Coded Allergies: No Known Drug Allergies (Unverified , 06/12/15) Patient Home Medication List Home Medication List Reviewed: Yes Albuterol Sulfate (Ventolin Hfa) 1 Puff Puff, 2 PUFF IH Q4H PRN for SHORTNESS OF BREATH, (Reported) Entered as Reported by: EVARISTO LAROSE on 12/10/20 0954 Albuterol Sulfate (Albuterol Sulfate) 2.5 Mg/3 Ml (0.083 %) Vial.neb, 3 ML NEB Q6H PRN for SHORTNESS OF BREATH, (Reported) Entered as Reported by: EVARISTO LAROSE on 05/03/22 1053 Alprazolam (Xanax) 0.25 Mg Tablet, 0.25 MG PO BID PRN for ANXIETY Prescribed by: PADMINI BARBOUR on 06/22/222044 Ascorbic Acid (Vitamin C) 500 Mg Tab.chew, 500 MG PO DAILY, (Reported) Entered as Reported by: EVARISTO LAROSE on 05/03/22 1053 Atorvastatin Calcium (Atorvastatin Calcium) 20 Mg Tablet, 20 MG PO HS, (Reported) Entered as Reported by: EVARISTO LAROSE on 09/14/21 1549 Calcium Carbonate (Calcium) 600 Mg Calcium (1500 Mg) Tablet, 600 MG PO BID, (Reported) Entered as Reported by: LEATHA JUSTIN on 05/03/22 0951 Cholecalciferol (Vitamin D3) (Vitamin D3) 25 Mcg (1000 Unit) Capsule, 25 MCG PO DAILY, (Reported) Entered as Reported by: EVARISTO LAROSE on 05/03/22 105 Cyanocobalamin (Vitamin B-12) (Vitamin B-12) 5,000 Mcg Tab.rapdis, 5,000 MCG PO DAILY, (Reported) Entered as Reported by: EVARISTO LAROSE on 05/03/22 105 Dulaglutide (Trulicity) 0.75 Mg/0.5 Ml Pen.injctr, 0.75 MG SQ FRI, (Reported) Entered as Reported by: EVARISTO LAROSE on 09/14/21 154 Fluticasone/Salmeterol (Advair Hfa 115-21 Mcg Inhaler) 12 Gm Hfa.aer.ad, 2 PUFF INH BID, (Reported) Entered as Reported by: EVARISTO LAROSE on 09/14/21 154 Insulin Glargine,Hum.rec.anlog (Lantus Solostar) 100 Unit/1 Ml Insuln.pen, 25 UNITS SQ HS, (Reported) Entered as Reported by: EVARISTO LAROSE on 09/14/21 154 Ipratropium/Albuterol Sulfate (Iprat-Albut 0.5-3(2.5) mg/3 ml) 3 Ml Ampul.neb, 3 ML IH TID, (Reported) Entered as Reported by: EVARISTO LAROSE on 09/14/21 154 Letrozole (Letrozole) 2.5 Mg Tablet, 2.5 MG PO DAILY, (Reported) Entered as Reported by: EVARISTO LAROSE on 12/10/20 09 Levofloxacin (Levofloxacin) 500 Mg Tablet, 500 MG PO DAILY Prescribed by: PADIMNI BARBOUR on 06/22/222023 Lisinopril (Lisinopril) 5 Mg Tablet, 5 MG PO DAILY, (Reported) Entered as Reported by: LEATHA JUSTIN on 05/03/22 09 Metformin HCl (Metformin HCl ER) 500 Mg Tab.er.24h, 500 MG PO DAILY, (Reported) Entered as Reported by: LEATHA JUSTIN on 05/03/22950 Montelukast Sodium (Montelukast Sodium) 10 Mg Tablet, 10 MG PO HS, (Reported) Entered as Reported by: EVARISTO LAROSE on 09/14/21 154 Pantoprazole Sodium (Pantoprazole Sodium) 40 Mg Tablet.dr, 40 MG PO BID, (Reported) Entered as Reported by: EVARISTO LAROSE on 12/10/20 0954 Prednisone (Prednisone) 20 Mg Tab, 40 MG PO Q24HR Prescribed by: LEATHA JUSTIN on 05/05/22 0815 Prednisone (Prednisone) 50 Mg Tab, 50 MG PO DAILY Prescribed by: PARISH WANG MD on 05/25/222154 Prednisone (Prednisone) 20 Mg Tab, 40 MG PO DAILY Prescribed by: PADMINI BARBOUR on 06/22/222023 Sertraline HCl (Sertraline HCl) 100 Mg Tablet, 100 MG PO HS, (Reported) Entered as Reported by: ABHI ANSARI on 08/20/15 172 Sertraline HCl (Sertraline HCl) 50 Mg Tablet, 50 MG PO HS, (Reported) Entered as Reported by: EVARISTO LAROSE on 12/10/20 0954 Umeclidinium [place] (Incruse Ellipta) 62.5 Mcg/Actuation Blst.w.dev, 62.5 MCG IH DAILY Prescribed by: LEATHA JUSTIN on 05/05/22 1003 Review of Systems Review of Systems Constitutional: see HPI EENTM: see HPI Respiratory: see HPI, cough, dyspnea on exertion, short of breath Cardiovascular: no symptoms reported Genitourinary: no symptoms reported Musculoskeletal: no symptoms reported Skin: no symptoms reported Psychiatric/Neurological: No Symptoms Reported Hematologic/Lymphatic: No Symptoms Reported Past Bctccit-Ggkzmo-Zdomdr Hx Patient Social History Tobacco Use?: Yes Tobacco type used: Cigarettes Smoking Status: Current Someday Smoker Substance use?: No Alcohol Use?: No Immunizations Up To Date PED Vaccines UTD: Yes First/Initial COVID19 Vaccinat: N/A Second COVID19 Vaccination [place]: N/A Third COVID19 Vaccination Date: N/A Past Medical History Surgery/Hospitalization HX: COPD, iddm, gerd, high cholesterol, asthma, bilateral mastectomy, tubal, hernia, home o2 Surgeries: Yes (HERNIA, BI LAT MASECTOMY) Abdominal, Breast, Tubal Ligation Respiratory: Yes (Uses oxygen at 2 L continuously) Pneumonia, COPD Cardiac: Yes High Cholesterol, Hypertension Neurological: Yes (VASOVAGAL SYNCOPE VS SEIZURE) Headaches /Migraines [employer] History: Tubal Ligation, Menopausal Genitourinary: No Gastrointestinal: Yes (ESOPHAGEAL SPASMS) Musculoskeletal: Yes Arthritis Endocrine: Yes Diabetes, Non-Insulin dep HEENT: No Cancer: Yes Breast Did You Recieve Any Treatments: Yes What Type of Treatment Did You: Surgical Intervention Psychosocial: Yes Anxiety, Depression Integumentary: Yes Psoriasis Blood Disorders: No Family Medical History Cancer, Diabetes, Psychiatric Problems Physical Exam Vital Signs - First Documented 06/22/22 18:04 Temp 36.9 Pulse 94 Resp 16 B/P (MAP) 144/86 (105) Pulse Ox 95 O2 Delivery Nasal Cannula O2 Flow Rate 2.00 Capillary Refill : Less Than 3 Seconds Height: 5'3.00" Weight: 139lbs. 0.0oz. 63.584753tw; 24.00 BMI Method:Stated General Appearance: WD/WN, no apparent distress, other (No distress speaks in full sentences oxygen saturation 96% on room air) Eyes: Bilateral Eye Normal Inspection, Bilateral Eye PERRL, Bilateral Eye EOMI Neck: non-tender, full range of motion Respiratory: no respiratory distress, no accessory muscle use, decreased breath sounds Cardiovascular: regular rate, rhythm, no murmur Gastrointestinal: normal bowel sounds, non tender, soft Neurologic/Psychiatric: alert, normal mood/affect, oriented x 3 Skin: normal color, warm/dry Procedures/Interventions Date of ETT Placement: Jul 24, 2021 Time of ETT Placement: 1130 Progress/Results/Core Measures Suspected Sepsis SIRS Temperature: Pulse: 94 Respiratory Rate: 16 Laboratory Tests 06/22/22 18:08: White Blood Count 10.9 Blood Pressure 144 /86 Mean: 105 Laboratory Tests 06/22/22 18:08: Creatinine 0.72, Platelet Count 273, Total Bilirubin 0.4 Results/Orders Lab Results Laboratory Tests Test 06/22/22 18:06 06/22/22 18:08 06/22/22 18:25 06/22/22 19:57 Range/Units Influenza Type A (RT-PCR) Not Detected Not Detecte Influenza Type B (RT-PCR) Not Detected Not Detecte SARS-CoV-2 RNA (RT-PCR) Not Detected Not Detecte White Blood Count 10.9 4.3-11.0 10^3/uL Red Blood Count 4.88 3.80-5.11 10^6/uL Hemoglobin 12.7 11.5-16.0 g/dL Hematocrit 40 35-52 % Mean Corpuscular Volume 83 80-99 fL Mean Corpuscular Hemoglobin 26 25-34 pg Mean Corpuscular Hemoglobin Concent 32 32-36 g/dL Red Cell Distribution Width 15.2 H 10.0-14.5 % Platelet Count 273 130-400 10^3/uL Mean Platelet Volume 11.4 9.0-12.2 fL Immature Granulocyte % (Auto) 0 % Neutrophils (%) (Auto) 67 42-75 % Lymphocytes (%) (Auto) 22 12-44 % Monocytes (%) (Auto) 9 0-12 % Eosinophils (%) (Auto) 3 0-10 % Basophils (%) (Auto) 0 0-10 % Neutrophils # (Auto) 7.3 1.8-7.8 10^3/uL Lymphocytes # (Auto) 2.4 1.0-4.0 10^3/uL Monocytes # (Auto) 1.0 0.0-1.0 10^3/uL Eosinophils # (Auto) 0.3 0.0-0.3 10^3/uL Basophils # (Auto) 0.0 0.0-0.1 10^3/uL Immature Granulocyte # (Auto) 0.0 0.0-0.1 10^3/uL Sodium Level 142 135-145 MMOL/L Potassium Level 4.1 3.6-5.0 MMOL/L Chloride Level 100 98-107 MMOL/L Carbon Dioxide Level 28 21-32 MMOL/L Anion Gap 14 5-14 MMOL/L Blood Urea Nitrogen 13 7-18 MG/DL Creatinine 0.72 0.60-1.30 MG/DL Estimat Glomerular Filtration Rate 94 BUN/Creatinine Ratio 18 Glucose Level 130 H 70-105 MG/DL Calcium Level 10.8 H 8.5-10.1 MG/DL Corrected Calcium 8.5-10.1 MG/DL Total Bilirubin 0.4 0.1-1.0 MG/DL Aspartate Amino Transf (AST/SGOT) 13 5-34 U/L Alanine Aminotransferase (ALT/SGPT) 20 0-55 U/L Alkaline Phosphatase 112 40-136 U/L Troponin I < 0.028 <0.028 NG/ML B-Type Natriuretic Peptide < 10.0 <100.0 PG/ML Total Protein 8.4 H 6.4-8.2 GM/DL Albumin 4.6 H 3.2-4.5 GM/DL Blood Gas Puncture Site LEFT RADIAL LEFT RAD Blood Gas Patient Temperature 36.9 98.2 Arterial Blood pH 7.34 *L 7.40 7.37-7.43 Arterial Blood Partial Pressure CO2 64 H 54 H 35-45 MMHG Arterial Blood Partial Pressure O2 97 H 67 L 79-93 MMHG Arterial Blood HCO3 32 H 33 H 23-27 MMOL/L Arterial Blood Total CO2 34.0 H 34.6 H 21.0-31.0 MMOL/L Arterial Blood Oxygen Saturation 97 95 94-100 % Arterial Blood Base Excess 7.2 H 8.0 H -2.5-2.5 MMOL/L Wes Test NA YES-POS Blood Gas Ventilator Setting NO NO Blood Gas Inspired Oxygen UNK 3 My Orders Orders - PADMINI BARBOUR APRN Cbc With Automated Diff (06/22/22 18:12) Comprehensive Metabolic Panel (06/22/22 18:12) Troponin I Vicente (06/22/22 18:12) Bnp [place] (06/22/22 18:12) Covid 19 Inhouse Test (06/22/22 18:12) Chest 1 View, Ap/Pa Only (06/22/22 18:12) Influenza A And B By Pcr (06/22/22 18:12) Ekg Tracing (06/22/22 18:12) Arterial Blood Gas (06/22/22 18:16) Prednisone Tablet (Deltasone Tablet) (06/22/22 19:45) Levofloxacin Tablet (Levaquin Tablet) (06/22/22 19:45) Arterial Blood Gas (06/22/22 19:55) Medications Given in ED Current Medications Medications Dose Ordered Sig/Patrick Route Start Time Stop Time Status Last Admin Dose Admin Levofloxacin 500 mg ONCE ONCE PO 06/22/22 19:45 06/22/22 19:46 DC 06/22/22 19:56 500 MG Prednisone 60 mg ONCE ONCE PO 06/22/22 19:45 06/22/22 19:46 DC 06/22/22 19:56 60 MG Vital Signs/I&O 06/22/22 06/22/22 06/22/22 18:04 18:08 18:10 Temp 36.9 Pulse 94 Resp 16 B/P (MAP) 144/86 (105) Pulse Ox 95 95 O2 Delivery Nasal Cannula Nasal Cannula O2 Flow Rate 2.00 3.00 3.00 Capillary Refill : Less Than 3 Seconds Blood Pressure Mean: 105 Departure Communication (Admissions) NAME: AN [facility]A [facility] REC#: [id number] PT STATUS: REG ER : 1960 PHYSICIAN: PADMINI BARBOUR APRN ADMIT DATE: 06/22/22/ER Signed Date of Exam:06/22/22 CHEST 1 VIEW, AP/PA ONLY INDICATION: Shortness of air. EXAMINATION: Chest 06/22/2022. COMPARISON: 05/25/2022 FINDINGS: Lungs are hyperinflated. A density in the peripheral left mid to lower lung is noted which appears different from the previously described density abutting the left heart border. This may represent a new developing infiltrate. A lung mass is difficult to exclude but less likely given change in location. Short-term follow-up or CT could provide further characterization. No effusions. No pneumothorax. Heart and pulmonary vasculature stable. IMPRESSION: 1. Hyperinflation of lungs with a density in the peripheral left mid to lower lung somewhat changed in appearance or location from previous imaging see above discussion and recommendations. Dictated by: Dictated on workstation # [id number] Dict: 06/22/221852 Trans: 06/22/221914 [id number] Interpreted by: HA CASEY MD Electronically signed by: HA CASEY MD 06/22/221914 Impression Primary Impression: COPD exacerbation Additional Impression: Acute on chronic respiratory failure with hypoxia and hypercapnia Disposition: 01 HOME, SELF-CARE Condition: Stable Departure-Patient Inst. Decision time for Depature: 20:22 Referrals: [facility] (PCP/Family) Primary Care Physician Patient Instructions: Exacerbation of COPD Add. Discharge Instructions: Continue current medications. Continue with your breathing treatment. Take the steroids and antibiotics as directed. You will need a repeat chest x-ray in about 3 to 4 weeks to reevaluate the spot on the left lung. If it is still there they may need to follow that with a CT scan. Return to ER for any worsening. All discharge instructions reviewed with patient and/or family. Voiced understanding. Scripts Alprazolam (Xanax) 0.25 Mg Tablet 0.25 MG PO BID PRN for ANXIETY, #10 TAB Prov: PADMINI BARBOUR APRN 06/22/22 Levofloxacin (Levofloxacin) 500 Mg Tablet 500 MG PO DAILY, #5 TAB Prov: PADMINI BARBOUR APRN 06/22/22 Prednisone (Prednisone) 20 Mg Tab 40 MG PO DAILY, #6 TAB 0 Refills Prov: PADMINI BARBOUR APRN 06/22/22 PADMINI BARBOUR APRN Jun 22, 2022 18:32
[2022-06-22 18:33] LABS: BUN/CREATININE RATIO 18
[2022-06-22 18:35] LABS: ALANINE AMINOTRANSFERASE 20 U/L (0-55)
--- NOTE | 2022-06-22 18:58 | Diagnostic Imaging Report ---
INDICATION: Shortness of air. EXAMINATION: Chest 06/22/2022. COMPARISON: 05/25/2022 FINDINGS: Lungs are hyperinflated. A density in the peripheral left mid to lower lung is noted which appears different from the previously described density abutting the left heart border. This may represent a new developing infiltrate. A lung mass is difficult to exclude but less likely given change in location. Short-term follow-up or CT could provide further characterization. No effusions. No pneumothorax. Heart and pulmonary vasculature stable. IMPRESSION: 1. Hyperinflation of lungs with a density in the peripheral left mid to lower lung somewhat changed in appearance or location from previous imaging see above discussion and recommendations. Dictated by: Dictated on workstation # [id number]
[2022-06-22 19:11] LABS: ABG PH 7.34 (7.37-7.43)
[2022-06-22 19:12] LABS: PATIENT TEMP 36.9; VENTILATOR NO
[2022-06-22] MEDS ORDERED: predniSONE 20 MG TAB PO ONE (19:45)
[2022-06-22 20:06] LABS: ABG OXYGEN SATURATION 95 % (94-100); ABG PCO2 54 MMHG (35-45); ABG PO2 67 MMHG (79-93); ABG TCO2 34.6 MMOL/L (21.0-31.0)
[2022-06-22 20:11] LABS: ALLENS TEST YES-POS
[2022-06-22 20:12] LABS: INSPIRED O2 3; PATIENT TEMP 98.2; VENTILATOR NO
[2022-06-22] MEDS ORDERED: LEVO-55 PO (20:24)
[2022-06-22] MEDS ORDERED: PRD20T PO (20:24)
[2022-06-22] MEDS ORDERED: ALPR0.25 PO (20:45)
[2022-06-22 20:50] VITALS: BP 119/62
== END 2022-06-22 20:50 | disposition home or self-care (01) ==
LOC: EDUNIT# 18:01 → ER 18:04
DX: J44.1 Chronic obstructive pulmonary disease with (acute) exacerbation (principal); J96.21 Acute and chronic respiratory failure with hypoxia; J96.22 Acute and chronic respiratory failure with hypercapnia; F17.210 Nicotine dependence, cigarettes, uncomplicated; Z99.81 Dependence on supplemental oxygen; Z28.310 Unvaccinated for COVID-19; Z20.822 Contact with and (suspected) exposure to COVID-19
CPT/HCPCS: 36415; 71045; 80053; 82805; 83880; 84484; 85025; 87636; 93005; 99291

== ENCOUNTER → 2022-07-04 | Outpatient (CLI) | payer MEDICARE ==
[~2022-07-04] MED LIST changes: +ALPR0.25 PO; +LEVO-55 PO; +REGADENOSON 0.4 MG/5 ML SYR (LEXISCAN) IV ONE
[2022-07-04] MEDS: CATHETER FLUSH 10 ML SYR IVP PRN ×2 (07:59→09:35)
[2022-07-04 09:28] VITALS: BP 123/88
--- NOTE | 2022-07-04 11:12 | Cardiology Stress Test Report ---
Stress Test Report Date of Procedure/Referring: Date of Procedure: Jul 04, 2022 [facility] Admitting Physician Admitting Physician: Attending Physician: Beatrice Park MD Baseline Heart Rate: 76 Baseline Blood Pressure: Blood Pressure Systolic: 123 Blood Pressure Diastolic: 88 Baseline Vitals Vital Signs Date Time Temp Pulse Resp B/P (MAP) Pulse Ox O2 Delivery O2 Flow Rate FiO2 07/04/22 09:28 70 123/88 (100) 98 Baseline EKG: Baseline EKG: NSR Summary After explaining the procedure to the patient, she signed a consent and then brought to the stress nuclear laboratory. Patient received 0.4 mg Lexiscan for stress test, ECG, heart rate and blood pressure were monitored continuously. Resting and stress dose of radio tracer were injected, imaging was acquired and reviewed in short axis, horizontal long axis and vertical long axis views. TID: 1.06 SSS: 4 SDS: 4 EF: 56 1. Patient tolerated Lexiscan well 2. Breast attenuation with fixed defect involving the mid to apical anterior wall, reversible ischemia involving the mid to apical inferior wall 3. Normal left ventricular size, ejection fraction 58% Copy Copies To 1: [facility]/ BEATRICE PARK MD Jul 04, 2022 11:12
== END ==
LOC: CARD 08:00
PROVIDERS: ATTEND Internal Medicine Cardiovascular Disease
DX: I10 Essential (primary) hypertension (principal); I25.10 Atherosclerotic heart disease of native coronary artery without angina pectoris
CPT/HCPCS: 78452; 93017; A9502

== ENCOUNTER 2022-07-20 07:47 | Day surgery (SDC) | payer MEDICARE ==
[~2022-07-20] VITALS: Ht 162.6 cm; Wt 66.4 kg
[2022-07-20] VITALS (10 sets, daily range): BP systolic 90–125; BP diastolic 46–69
[~2022-07-20 07:47] MED LIST changes: -REGADENOSON 0.4 MG/5 ML SYR (LEXISCAN) IV ONE
[2022-07-20] MEDS ORDERED: HEParin (CATH LAB) 2,000 ML IV ONE (07:53)
[2022-07-20] MEDS ORDERED: NS IV 1000 ML 1,000 ML ONE (07:53)
[2022-07-20] MEDS ORDERED: LIDOCAINE 1% INJ 30 ML (XYLOCAINE) VIAL ONE (07:53)
[2022-07-20] MEDS ORDERED: NS IV 1000 ML 1,000 ML IV ONE (08:00)
[2022-07-20 08:25] LABS: HEMATOCRIT 38 % (35-52); HEMOGLOBIN 12.1 g/dL (11.5-16.0); MEAN CORPUSCULAR HEMOGLOBIN 26 pg (25-34); MEAN CORPUSCULAR HGB CONC 32 g/dL (32-36); MEAN CORPUSCULAR VOLUME 83 fL (80-99); MEAN PLATELET VOLUME 11.6 fL (9.0-12.2); PLATELET COUNT 243 10^3/uL (130-400); WHITE BLOOD COUNT 10.5 10^3/uL (4.3-11.0)
[2022-07-20 08:29] LABS: BILIRUBIN,URINE NEGATIVE (NEGATIVE); CLARITY,URINE CLEAR; COLOR,URINE YELLOW; GLUCOSE, URINE (UA) NEGATIVE (NEGATIVE); KETONES,URINE NEGATIVE (NEGATIVE); LEUKOCYTE ESTERASE ,URINE 1+ (NEGATIVE); NITRITE,URINE NEGATIVE (NEGATIVE); PROTEIN,URINE NEGATIVE (NEGATIVE)
--- NOTE | 2022-07-20 08:29 | Diagnostic Imaging Report ---
INDICATION: ABNORMAL STRESS TEST. TECHNIQUE: Single view chest 8:29 AM. CORRELATION STUDY: 06/22/2022 FINDINGS: The heart size, mediastinal configuration and pulmonary vascularity are within normal limits. Lung lombardi are hyperinflated. Minimal atelectasis and/or scarring left lung base. No infiltrate. Surgical clips over bilateral axilla. IMPRESSION: 1. Negative appearing single view chest. Dictated by: Dictated on workstation # [id number]
[2022-07-20 08:39] LABS: BACTERIA,URINE MODERATE /HPF
[2022-07-20 08:41] LABS: INR 0.9 (0.8-1.4); PROTHROMBIN TIME PATIENT 12.9 SEC (12.2-14.7)
[2022-07-20 08:46] LABS: ALBUMIN 4.4 GM/DL (3.2-4.5); BILIRUBIN,TOTAL 0.3 MG/DL (0.1-1.0); CALCIUM 9.8 MG/DL (8.5-10.1); CREATININE SERUM 0.79 MG/DL (0.60-1.30); POTASSIUM 3.6 MMOL/L (3.6-5.0); TOTAL PROTEIN 7.5 GM/DL (6.4-8.2)
[2022-07-20] MEDS ORDERED: ACET325T38 PO (09:23)
[2022-07-20] MEDS ORDERED: FLUT12AE4 IH (09:23)
[2022-07-20] MEDS ORDERED: ASCO500C17 PO (09:23)
[2022-07-20] MEDS ORDERED: CYAN50009 PO (09:23)
[2022-07-20] MEDS ORDERED: POLY30DR6 OP (09:23)
[2022-07-20] MEDS ORDERED: TIOT4MIS2 IH (09:23)
[2022-07-20] MEDS ORDERED: CINNAMON PO (09:23)
[2022-07-20] MEDS ORDERED: fentaNYL INJ 100 MCG/2 ML AMP ONE (10:29)
[2022-07-20] MEDS ORDERED: MIDAZOLAM 5 MG/5 ML (VERSED) VIAL ONE (10:29)
--- NOTE | 2022-07-20 10:51 | Cardiac Procedure Note-CS/ASA ---
Pre-Procedure Note Pre-Op Procedure Note Date of Available H&P: Jul 07, 2022 Date H&P Reviewed: Jul 20, 2022 Time H&P Reviewed: History & Physical: H&P Reviewed, Patient Examed, No changes noted Pre-Operative Diagnosis: CAD Conscious Sedation Pre-Proced Time 09:30 ASA Score 3 For ASA 3 and 4: Consider anesthesia and medical clearance. Also, for patients with a history of failed moderate sedation consider anesthesia. Airway Lungs Heart ASA score ASA 1: a normal healthy patient ASA 2: a patient with a mild systemic disease (mid diabetes, controlled hypertension, obesity ASA 3: a patient with a severe systemic disease that limits activity (angina, COPD, prior Myocardial infarction) ASA 4: a patient with an incapacitating disease that is a constant threat to life (CHF, renal failure) ASA 5: a moribund patient not expected to survive 24 hrs. (ruptured aneurysm) ASA 6: a declared brain- patient whose organs are being harvested. For emergent operations, add the letter E after the classification Mallampati Classification Grade 3 Sedation Plan Analgesia, Amnesia, Plan communicated to team members, Discussed options with patient/fam, Discussed risks with patient/fam The patient is an appropriate candidate to undergo the planned procedure, sedation, and anesthesia. The patient immediately re-assessed prior to indication. BEATRICE ARTEAGA MD Jul 20, 2022 10:51
--- NOTE | 2022-07-20 10:53 | Cardiac Cath Report ---
Cardiac Cath Report Physician (s)/Prototype Special Build (s) Physician BEATRICE ARTEAGA MD Pre-Procedure Diagnosis Pre-Procedure Diagnosis: CAD Post-Procedure Note Procedure Start Date: Jul 20, 2022 Name of Procedure: Left heart catheterization Findings/Procedure Note PROCEDURE NOTE: 61-year-old lady with history of hypertension, hyperlipidemia, coronary artery disease, had an abnormal stress test, scheduled for cardiac catheterization possible PTCA. After explaining the procedure to the patient, all pros and cons were explained, all questions were answered. The patient signed the consent and then she was placed in the cardiac catheterization laboratory. Groin was prepped in SL fashion local anesthesia was used. Sheath placed in the right femoral artery. Thalia' right and left catheter were used to access the coronary system. Thalia right was prolapsed to the left ventricular cavity, pressure was measured, no left ventriculogram was done, pullback LV to aorta was done. At the end of the procedure the sheath was removed. Closure device was deployed FINDINGS: Hemodynamics LV 107/14, end-diastolic pressure of 14 Aorta 112/55 mean of 74 ANATOMY: Left Main is free of obstructive Left Anterior Descending has mild disease in the mid LAD nonobstructive disease about 30 to 40% stenosis Left Circumflex is dominant artery with mild disease nonobstructive disease Right Coronary Artery is a small nondominant artery with coronary spasm induced by catheter no obstructive disease LV Gram was not done, pressure was measured CONCLUSION: 1. Mild coronary artery disease nonobstructive disease with dominant circumflex artery 2. Normal left ventricular end-diastolic pressure DISCUSSION AND RECOMMENDATION: Abnormal stress test is probably due to small vessel disease and or extracardiac attenuation Anesthesia Type: Conscious Sedation Estimated blood loss (mL): 10 ml Contrast Amount: 11 ml Total Radiation Dose: 86 mGy Post-Procedure Diagnosis Post-operative diagnosis: Chest pain Coronary artery disease Hypertension Hyperlipidemia BEATRICE ARTEAGA MD Jul 20, 2022 10:53
[2022-07-20] MEDS ORDERED: METF-865 PO (10:55)
[2022-07-20] MEDS ORDERED: ATOR40TA PO (10:56)
--- NOTE | 2022-07-20 10:56 | Discharge Inst-Post CATH ---
Discharge Inst-CATH/EP Problems Reviewed?: Yes Post Cardiac Cath/EP D/C Inst Follow Up/Plan Hold metformin for [address] Park's office in 2 to 4 weeks <b>CARDIAC CATH/EP PROCEDURE DISCHARGE INSTRUCTIONS</b> ACTIVITY * Go Home directly and rest. * Limit activity of the leg (or wrist if it was used) for 7 days including aerobics, swimming, jogging, bicycling, etc. * Restrict stair-climbing for 7 days if possible, if not, climb up with your non-cath leg, then bring together on the same step. * Avoid lifting, pushing, pulling or excessive movement of the affected extremity for 7 days. * Customary sexual activity may be resumed after 2 days-use caution not to use a position that strains or causes pain to the affected extremity. * No driving for 24 hours. * NO SMOKING. * Avoid straining for bowel movements for 7 days. * Gentle walking on level ground is allowed. * Returning to work will depend on the type of procedure and the results. Your doctor will discuss this with you. CALL YOUR DOCTOR FOR ANY OF THE FOLLOWING: *If bleeding from the puncture site occurs- Apply gentle pressure to site with clean cloth and call your doctor or EMS. * If a knot or lump forms under the skin, increases in size, or causes pain. * If bruising appears to be worsening or moving further down your leg instead of disappearing. * Temperature above 101 F. CARE OF YOUR GROIN INCISION; * Bruising or purple discoloration of the skin near the puncture site is common. * You may shower only, no bathtub bathing for 5 days. Be careful to avoid slipping as your leg may feel stiff. * If a closure device was used on your femoral artery, please see the attached guide regarding care of the device and your leg. * Leave dressing on FOR 24 hours. CARE OF YOUR WRIST INCISION; * Bruising or purple discoloration of the skin near the puncture site is common. * You may shower. * DO NOT submerge wrist. * Leave dressing on FOR 24 hours. BEATRICE PARK MD Jul 20, 2022 10:56
[2022-07-20] MEDS ORDERED: PATIENT MAY USE OWN MEDS, ALL PO SCH (11:00)
[2022-07-20] MEDS ORDERED: NS IV 1000 ML 1,000 ML IV SCH (11:00)
== END 2022-07-20 15:15 | disposition home or self-care (01) ==
LOC: CATH 07:47 → SDC 11:03 → CATH 15:15
PROVIDERS: ATTEND Internal Medicine Cardiovascular Disease
DX: I25.10 Atherosclerotic heart disease of native coronary artery without angina pectoris (principal); I10 Essential (primary) hypertension; E78.5 Hyperlipidemia, unspecified; E11.9 Type 2 diabetes mellitus without complications; I65.23 Occlusion and stenosis of bilateral carotid arteries; Z28.310 Unvaccinated for COVID-19; Z87.891 Personal history of nicotine dependence; Z79.4 Long term (current) use of insulin; Z85.3 Personal history of malignant neoplasm of breast
CPT/HCPCS: 71045; 80053; 80061; 81000; 85027; 85610; 85730; 87081; 87088; 93005; 93458; C1760; C1894; 36415

== ENCOUNTER 2022-08-12 09:52 | Day surgery (SDC) | payer MEDICARE ==
[~2022-08-12] VITALS: Wt 65.5 kg
[~2022-08-12 09:52] MED LIST changes: +ACET325T38 PO; +ASCO500C17 PO; +ATOR40TA PO; +CINNAMON PO; +CYAN50009 PO; +FLUT12AE4 IH; +POLY30DR6 OP; +TIOT4MIS2 IH
[2022-08-12 10:00] VITALS: BP_SYST 124; BP_SYST 132; BP_DIAS 64; BP_DIAS 75
[2022-08-12] MEDS: TETRACAINE 0.5% OPHTH SOLN 4 ML BTL (SINGLE DOSE ONLY) OU PRN ×4 (10:11→10:23)
[2022-08-12] MEDS ORDERED: MOXIFLOXACIN OPHTH SOLN 5 MG/ML 0.3 ML SYRINGE OP ONE (10:15)
[2022-08-12] MEDS ORDERED: POVIDONE (BETADINE) OPHTH SOLN 5% 30 ML OP ONE (10:15)
[2022-08-12] MEDS ORDERED: TIMOLOL 0.5% (CATARACTS) 0.3 ML BTL OU PRN (10:15)
[2022-08-12] MEDS: PHENYLEPHRINE 10% OPHTH (NEO-SYN) 5 ML BTL OU SCH ×3 (10:17→10:26)
[2022-08-12] MEDS: TROPICAMIDE 1% OPH SOLN (MYDRIACYL) 15 ML BTL OP SCH ×3 (10:17→10:26)
[2022-08-12] MEDS ORDERED: MIDAZOLAM 2 MG/2 ML (VERSED) VIAL ONE (10:38)
--- NOTE | 2022-08-12 10:51 | Ophthalmologist Pre-Op Note ---
Pre-Operative Progress Note H&P Reviewed The H&P was reviewed, patient examined and no changes noted. Date H&P Reviewed: Aug 12, 2022 Time H&P Reviewed: 10:51 Pre-Op Dx Cataract, Right Eye JADE LYN MD Aug 12, 2022 10:51
--- NOTE | 2022-08-12 11:16 | Ophthalmology Operative Report ---
Cataract removal/placement IOL PREOPERATIVE DIAGNOSIS: Cataract Right Eye POSTOPERATIVE DIAGNOSIS: Cataract Right Eye PROCEDURE: Cataract removal and placement of posterior chamber implant, right eye SURGEON: Rui Lyn ANESTHESIA: Topical with sedation COMPLICATIONS: None ESTIMATED BLOOD LOSS: Minimal DESCRIPTION OF PROCEDURE: After proper informed consent was obtained, the patient, a 61 female, was taken to the Operating Room and the right eye was anesthetized with tetracaine. The right eye was then prepped and draped in the usual manner. A wire lid speculum was placed. A paracentesis was made at the left hand position. Preservative free lidocaine was injected into the anterior chamber followed by viscoelastic. A clear corneal incision was made in the temporal position. A capsulorrhexis was preformed and the central nuclear and cortical material were removed. The posterior capsule was polished and Jethro 22.0 [id number] IOL was placed into the capsular bag. The residual viscoelastic was aspirated and balanced saline solution was injected into the anterior chamber. Moxifloxacin was injected into the anterior chamber. The wound was checked and found to be water tight. The patient tolerated the procedure well without complications. RUI LYN MD Aug 12, 2022 11:16
--- NOTE | 2022-08-12 13:14 | Anesthesia-General Post-Op ---
MAC Patient Condition Mental Status/LOC: Same as Preop Cardiovascular: Satisfactory Nausea/Vomiting: Absent Respiratory: Satisfactory Pain: Controlled Complications: Absent Post Op Complications Complications None Follow Up Care/Instructions Patient Instructions None needed. Anesthesiology Discharge Order Discharge Order Patient is doing well, no complaints, stable vital signs, no apparent adverse anesthesia problems. No complications reported per nursing. MARAT BEGUM CRNA Aug 12, 2022 13:14
[2022-08-12] MEDS ORDERED: acetaZOLAMIDE ER 500 MG CAP (DIAMOX SEQUELS) PO ONE (14:00)
== END 2022-08-12 11:25 | disposition home or self-care (01) ==
LOC: SDC 09:52
PROVIDERS: ATTEND Specialist
DX: E11.36 Type 2 diabetes mellitus with diabetic cataract (principal); H25.9 Unspecified age-related cataract; F17.200 Nicotine dependence, unspecified, uncomplicated; Z79.4 Long term (current) use of insulin; Z79.84 Long term (current) use of oral hypoglycemic drugs
CPT/HCPCS: 66984; 82947; V2632

== ENCOUNTER 2022-08-23 05:30 | Outpatient (CLI) | payer MEDICARE | END 2022-08-23 08:53 | disposition home or self-care (01) | LOC: PREOP 05:30 | PROVIDERS: ATTEND Specialist | DX: Z01.818 Encounter for other preprocedural examination (principal) ==

== ENCOUNTER 2022-08-26 10:07 | Day surgery (SDC) | payer MEDICARE ==
[~2022-08-26] VITALS: Wt 65.5 kg
[2022-08-26] MEDS ORDERED: TIMOLOL 0.5% (CATARACTS) 0.3 ML BTL OU PRN (10:15)
[2022-08-26] MEDS ORDERED: MOXIFLOXACIN OPHTH SOLN 5 MG/ML 0.3 ML SYRINGE OP ONE (10:15)
[2022-08-26] MEDS ORDERED: POVIDONE (BETADINE) OPHTH SOLN 5% 30 ML OP ONE (10:15)
[2022-08-26] MEDS: TETRACAINE 0.5% OPHTH SOLN 4 ML BTL (SINGLE DOSE ONLY) OU PRN ×4 (10:18→10:33)
[2022-08-26 10:21] VITALS: BP 127/65
[2022-08-26] MEDS: TROPICAMIDE 1% OPH SOLN (MYDRIACYL) 15 ML BTL OP SCH ×3 (10:24→10:33)
[2022-08-26] MEDS: PHENYLEPHRINE 10% OPHTH (NEO-SYN) 5 ML BTL OU SCH ×3 (10:24→10:33)
--- NOTE | 2022-08-26 11:07 | Ophthalmologist Pre-Op Note ---
Pre-Operative Progress Note H&P Reviewed The H&P was reviewed, patient examined and no changes noted. Date H&P Reviewed: Aug 26, 2022 Time H&P Reviewed: 11:07 Pre-Op Dx Cataract, Left Eye JADE LYN MD Aug 26, 2022 11:07
[2022-08-26] MEDS ORDERED: MIDAZOLAM 2 MG/2 ML (VERSED) VIAL ONE (11:10)
--- NOTE | 2022-08-26 11:27 | Ophthalmology Operative Report ---
Cataract removal/placement IOL PREOPERATIVE DIAGNOSIS: Cataract Left Eye POSTOPERATIVE DIAGNOSIS: Cataract Left Eye PROCEDURE: Cataract removal and placement of posterior chamber implant, left eye SURGEON: Rui Lyn ANESTHESIA: Topical with sedation COMPLICATIONS: None ESTIMATED BLOOD LOSS: Minimal DESCRIPTION OF PROCEDURE: After proper informed consent was obtained, the patient, a 61 female, was taken to the Operating Room and the left eye was anesthetized with tetracaine. The left eye was then prepped and draped in the usual manner. A wire lid speculum was placed. A paracentesis was made at the left hand position. Preservative free lidocaine was injected into the anterior chamber followed by viscoelastic. A clear corneal incision was made in the temporal position. A capsulorrhexis was preformed and the central nuclear and cortical material were removed. The posterior capsule was polished and an Jethro 21.0 [id number] was placed into the capsular bag. The residual viscoelastic was aspirated and balanced saline solution was injected into the anterior chamber. Moxifloxacin was injected into the anterior chamber. The wound was checked and found to be water tight. The patient tolerated the procedure well without complications. RUI LYN MD Aug 26, 2022 11:27
[2022-08-26 11:30] VITALS: BP 120/72
[2022-08-26] MEDS ORDERED: acetaZOLAMIDE ER 500 MG CAP (DIAMOX SEQUELS) PO ONE (12:15)
--- NOTE | 2022-08-26 12:15 | Anesthesia-General Post-Op ---
MAC Patient Condition Mental Status/LOC: Same as Preop Cardiovascular: Satisfactory Nausea/Vomiting: Absent Respiratory: Satisfactory Pain: Controlled Complications: Absent Post Op Complications Complications None Follow Up Care/Instructions Patient Instructions None needed. Anesthesiology Discharge Order Discharge Order Patient is doing well, no complaints, stable vital signs, no apparent adverse anesthesia problems. No complications reported per nursing. ANDRÉS THOMPSON CRNA Aug 26, 2022 12:15
== END 2022-08-26 11:31 | disposition home or self-care (01) ==
LOC: SDC 10:07
PROVIDERS: ATTEND Specialist
DX: E11.36 Type 2 diabetes mellitus with diabetic cataract (principal); H25.9 Unspecified age-related cataract; F17.290 Nicotine dependence, other tobacco product, uncomplicated
CPT/HCPCS: 66984; 82947; V2632

== ENCOUNTER 2022-10-12 18:34 | Inpatient (IN) | payer MEDICARE ==
[~2022-10-12] VITALS: Ht 163 cm; Wt 75.4 kg
[2022-10-12] MEDS ORDERED: methylPREDNISolone 125 MG (Solu-MEDROL) VIAL IV STA (19:09)
[2022-10-12] MEDS ORDERED: NS IV 1000 ML 1,000 ML IV SCH (19:15)
[2022-10-12] MEDS ORDERED: RT-ALBUTEROL/IPRATROPIUM 3 ML (DUONEB) VIAL INH ONE (19:15)
--- NOTE | 2022-10-12 19:18 | ED Respiratory ---
General Chief Complaint: Respiratory Problems Stated Complaint: COPD EXACERBATION SYMPTOMS Nursing Triage Note: Patient to ER via wc with c/o sob. Patient states the sob started 3 days ago. Patient did breathing treatment/inhalers at home. "Moving around makes it worse." hx COPD, Type II diabetes Source: patient History of Present Illness Date Seen by Provider: Oct 12, 2022 Time Seen by Provider: 19:04 Initial Comments PT ARRIVES VIA POV FROM HOME WITH DAUGHTER PT STATES "MY COPD'S ACTING UP" PT IS O2 DEPENDENT AT 4L/NC CONTINOUSLY SHE HAS BEEN HAVING INCREASED SHORTNESS OF BREATH FOR THE LAST WEEK, AND HAS BEEN WORSE FOR THE LAST 3 DAYS NO CHEST PAIN OR PAIN WITH BREATHING SHE HAS HAD A MINIMALLY PRODUCTIVE COUGH WITH CLEAR SPUTUM, AND FEELS LIKE THERE IS FLUID/CONGESTION IN HER CHEST NO LEG SWELLING NO FEVER/SWEATS/CHILLS SHE HAS HAD NASAL CONGESTION AND DRAINAGE--COLORED SHE HAS INHALERS AND NEBULIZER--SHE HAS BEEN USING HER NEBULIZER AT LEAST EVERY 2 HOURS FOR THE LAST 3 DAYS SHE HAS NOT BEEN ABLE TO SHOWER DUE TO DIFFICULTY BREATHING SHE HAS NOT SOUGHT CARE UNTIL TODAY SHE IS NOT COVID OR FLU VACCINATED SHE LIVES IN A [place], WITH DAUGHTER LIVING NEXT DOOR DAUGHTER'S FAMILY HAS HAD STREP RECENTLY. SHE CONTINUES TO SMOKE. SHE IS INSULIN DEPENDENT DIABETIC, HAS HTN, HYPERLIPIDEMIA, HX OF BREAST CANCER--NOT CURRENTLY RECEIVING TREATMENT. PCP: [facility] Allergies and Home Medications Allergies Coded Allergies: No Known Drug Allergies (Unverified , 06/12/15) Patient Home Medication List Acetaminophen (Tylenol) 325 Mg Tablet, 650 MG PO Q6H PRN for PAIN-MILD (1-4), (Reported) Entered as Reported by: CONSTANCE LARSON on 07/20/22 0923 Albuterol Sulfate (Ventolin Hfa) 90 Mcg Hfa.aer.ad, 2 PUFF IH Q4H PRN for SHORTNESS OF BREATH, (Reported) Entered as Reported by: EVARISTO LAROSE on 12/10/20 0954 Albuterol Sulfate (Albuterol Sulfate) 2.5 Mg/3 Ml (0.083 %) Vial.neb, 3 ML NEB Q6H PRN for SHORTNESS OF BREATH, (Reported) Entered as Reported by: EVARISTO LAROSE on 05/03/22 1053 Ascorbic Acid (Vitamin C) 500 Mg Capsule, 500 MG PO DAILY, (Reported) Entered as Reported by: CONSTANCE LARSON on 07/20/22922 Atorvastatin Calcium (Lipitor) 40 Mg Tablet, 40 MG PO DAILY Prescribed by: BEATRICE ARTEAGA on 07/20/22 105 Calcium Carbonate (Calcium) 600 Mg Calcium (1500 Mg) Tablet, 600 MG PO BID, (Reported) Entered as Reported by: LEATHA JUSTIN on 05/03/22 0951 Cholecalciferol (Vitamin D3) (Vitamin D3) 25 Mcg (1000 Unit) Capsule, 25 MCG PO DAILY, (Reported) Entered as Reported by: EVARISTO LAROSE on 05/03/22 105 Cyanocobalamin (Vitamin B-12) (Vitamin B12) 5,000 Mcg Tab.rapdis, 5,000 MCG PO DAILY, (Reported) Entered as Reported by: CONSTANCE LARSON on 07/20/22922 Dulaglutide (Trulicity) 0.75 Mg/0.5 Ml Pen.injctr, 0.75 MG SQ FRI, (Reported) Entered as Reported by: EVARISTO LARSOE on 09/14/21 154 Fluticasone/Salmeterol (Advair Hfa 115-21 Mcg Inhaler) 115 Mcg-21 Mcg/Actuation Hfa.aer.ad, 2 PUFF IH DAILY, (Reported) Entered as Reported by: CONSTANCE LARSON on 07/20/22922 Insulin Glargine,Hum.rec.anlog (Lantus Solostar) 100 Unit/Ml (3 Ml) Insuln.pen, 45 UNITS SQ HS, (Reported) Entered as Reported by: EVARISTO LAROSE on 09/14/21 154 Lisinopril (Lisinopril) 5 Mg Tablet, 5 MG PO DAILY, (Reported) Entered as Reported by: LEATHA JUSTIN on 05/03/22 09 Metformin HCl (Metformin HCl ER) 500 Mg Tab.er.24h, 500 MG PO DAILY Prescribed by: BEATRICE ARTEAGA on 07/20/22 105 Montelukast Sodium (Montelukast Sodium) 10 Mg Tablet, 10 MG PO DAILY, (Reported) Entered as Reported by: EVARISTO LAROSE on 09/14/21 154 Pantoprazole Sodium (Pantoprazole Sodium) 40 Mg Tablet.dr, 40 MG PO DAILY, (Reported) Entered as Reported by: EVARISTO LAROSE on 12/10/20 0954 Polyethylene Glycol 400 (Visine Dry Eye Relief) 1 % Drops, 1 DROP OP DAILY PRN for DRY EYES, (Reported) Entered as Reported by: CONSTANCE LARSON on 07/20/22 09 Sertraline HCl (Sertraline HCl) 100 Mg Tablet, 100 MG PO HS, (Reported) Entered as Reported by: ABHI ANSARI on 08/20/15 1723 Tiotropium [place] (Spiriva Respimat 2.5MCG/ACTUATION) 2.5 Mcg/Actuation Mist.inhal, 2 PUFF IH DAILY, (Reported) Entered as Reported by: CONSTANCE LARSON on 07/20/22922 [Cinnamon] 1000MG CAPSULE, 1,000 MG PO BID, (Reported) Entered as Reported by: CONSTANCE LARSON on 07/20/22922 Review of Systems Review of Systems Constitutional: no symptoms reported; No chills, No diaphoresis, No fever EENTM: nose congestion Respiratory: see HPI, cough, dyspnea on exertion, orthopnea, phlegm, short of breath, wheezing Cardiovascular: No chest pain, No edema, No palpitations, No syncope Gastrointestinal: no symptoms reported Genitourinary: no symptoms reported Musculoskeletal: no symptoms reported Skin: no symptoms reported Psychiatric/Neurological: No Symptoms Reported Hematologic/Lymphatic: No Symptoms Reported Immunological/Allergic: no symptoms reported Past Qycxoge-Gcthpq-Xjpbhw Hx Patient Social History Tobacco Use?: Yes Tobacco type used: Cigarettes Smoking Status: Light Tobacco Smoker Substance use?: No Alcohol Use?: No Immunizations Up To Date PED Vaccines UTD: Yes First/Initial COVID19 Vaccinat: N/A Second COVID19 Vaccination [place]: N/A Third COVID19 Vaccination Date: N/A Past Medical History Surgery/Hospitalization HX: COPD, iddm, gerd, high cholesterol, asthma, bilateral mastectomy, tubal, hernia, home o2 Surgeries: Yes (HERNIA, BI LAT MASECTOMY) Abdominal, Breast, Tubal Ligation Respiratory: Yes (Uses oxygen at 2 L continuously) COPD Cardiac: Yes High Cholesterol, Hypertension Neurological: Yes (VASOVAGAL SYNCOPE VS SEIZURE) Headaches /Migraines [employer] History: Tubal Ligation, Menopausal Genitourinary: No Gastrointestinal: Yes (ESOPHAGEAL SPASMS) Musculoskeletal: Yes Arthritis Endocrine: Yes Diabetes, Non-Insulin dep HEENT: No Cancer: Yes Breast Did You Recieve Any Treatments: Yes What Type of Treatment Did You: Surgical Intervention Psychosocial: Yes Anxiety, Depression Integumentary: Yes Psoriasis Blood Disorders: No Family Medical History Cancer, Diabetes, Psychiatric Problems Physical Exam Vital Signs - First Documented 10/12/22 18:48 Temp 36.7 Pulse 95 Resp 20 B/P (MAP) 105/53 (70) Pulse Ox 95 O2 Delivery Nasal Cannula O2 Flow Rate 3.00 Capillary Refill : Less Than 3 Seconds Height: 5'3.00" Weight: 139lbs. 0.0oz. [id number]; 24.00 BMI Method:Stated General Appearance: mild distress, other (MILDLY DYSPNEIC, ABLE TO TALK IN SHORT SENTENCES. ) Respiratory: respiratory distress, accessory muscle use, other (DECREASED AERATION IN ALL LUNG OATES, WITH DIFFUSE BILATERAL INSPIRATORY AND EXPIRATORY WHEEZING. ) Cardiovascular: regular rate, rhythm Gastrointestinal: non tender, soft Extremities: normal inspection, no pedal edema, no calf tenderness, normal capillary refill Neurologic/Psychiatric: no motor/sensory deficits, alert, oriented x 3 Skin: normal color, warm/dry Focused Exam Sepsis Stage: Sepsis Possible Source: Pulmonary Lactate Level 10/12/22 19:15: Lactic Acid Level 1.99 Time of Focused Exam: 20:30 Respiratory: Other (INCRAESED AERATION, DECREASED WHEEZING ON BIPAP) Cardiovascular: No Edema, No Murmur, Tachycardia Capillary Refill: Less Than 3 Seconds Skin: normal color, warm/dry Lactic Acid Level Laboratory Tests Test 10/12/22 19:15 Lactic Acid Level 1.99 MMOL/L (0.50-2.00) Within 3hrs of presentation: Admin fluids, Admin ABX, Blood cultures prior to ABX's, Focus exam, Lactate level Procedures/Interventions Date of ETT Placement: Jul 24, 2021 Time of ETT Placement: 1130 Progress/Results/Core Measures Suspected Sepsis SIRS Temperature: Pulse: 95 Respiratory Rate: 20 Laboratory Tests 10/12/22 19:15: White Blood Count 13.3H Blood Pressure 105 /53 Mean: 70 10/12/22 19:15: Lactic Acid Level 1.99 Laboratory Tests 10/12/22 19:15: Creatinine 0.79, INR Comment 1.0, Platelet Count 263, Total Bilirubin 0.3 Results/Orders Lab Results Laboratory Tests Test 10/12/22 19:15 10/12/22 19:30 10/12/22 20:00 Range/Units White Blood Count 13.3 H 4.3-11.0 10^3/uL Red Blood Count 4.67 3.80-5.11 10^6/uL Hemoglobin 12.3 11.5-16.0 g/dL Hematocrit 39 35-52 % Mean Corpuscular Volume 83 80-99 fL Mean Corpuscular Hemoglobin 26 25-34 pg Mean Corpuscular Hemoglobin Concent 32 32-36 g/dL Red Cell Distribution Width 13.6 10.0-14.5 % Platelet Count 263 130-400 10^3/uL Mean Platelet Volume 11.6 9.0-12.2 fL Immature Granulocyte % (Auto) 0 % Neutrophils (%) (Auto) 68 42-75 % Lymphocytes (%) (Auto) 19 12-44 % Monocytes (%) (Auto) 7 0-12 % Eosinophils (%) (Auto) 5 0-10 % Basophils (%) (Auto) 0 0-10 % Neutrophils # (Auto) 9.1 H 1.8-7.8 10^3/uL Lymphocytes # (Auto) 2.6 1.0-4.0 10^3/uL Monocytes # (Auto) 0.9 0.0-1.0 10^3/uL Eosinophils # (Auto) 0.7 H 0.0-0.3 10^3/uL Basophils # (Auto) 0.1 0.0-0.1 10^3/uL Immature Granulocyte # (Auto) 0.1 0.0-0.1 10^3/uL Erythrocyte Sedimentation Rate 19 0-30 MM/HR Prothrombin Time 13.6 12.2-14.7 SEC INR Comment 1.0 0.8-1.4 Activated Partial Thromboplast Time 28 24-35 SEC D-Dimer <= 0.27 0.00-0.49 UG/ML Sodium Level 141 135-145 MMOL/L Potassium Level 4.1 3.6-5.0 MMOL/L Chloride Level 101 98-107 MMOL/L Carbon Dioxide Level 27 21-32 MMOL/L Anion Gap 13 5-14 MMOL/L Blood Urea Nitrogen 10 7-18 MG/DL Creatinine 0.79 0.60-1.30 MG/DL Estimat Glomerular Filtration Rate 85 BUN/Creatinine Ratio 13 Glucose Level 199 H 70-105 MG/DL Lactic Acid Level 1.99 0.50-2.00 MMOL/L Calcium Level 10.0 8.5-10.1 MG/DL Corrected Calcium 9.8 8.5-10.1 MG/DL Magnesium Level 1.8 1.6-2.4 MG/DL Total Bilirubin 0.3 0.1-1.0 MG/DL Aspartate Amino Transf (AST/SGOT) 18 5-34 U/L Alanine Aminotransferase (ALT/SGPT) 23 0-55 U/L Alkaline Phosphatase 96 40-136 U/L Total Creatine Kinase 105 29-168 U/L Creatine Kinase MB 2.2 <6.6 NG/ML Myoglobin 46.3 10.0-92.0 NG/ML Troponin I < 0.028 <0.028 NG/ML C-Reactive Protein High Sensitivity 0.19 0.00-0.50 MG/DL B-Type Natriuretic Peptide < 10.0 <100.0 PG/ML Total Protein 7.6 6.4-8.2 GM/DL Albumin 4.3 3.2-4.5 GM/DL Lipase 13 8-78 U/L Influenza Type A (RT-PCR) Not Detected Not Detecte Influenza Type B (RT-PCR) Not Detected Not Detecte SARS-CoV-2 RNA (RT-PCR) Not Detected Not Detecte Group A Streptococcus Screen NEGATIVE NEGATIVE Blood Gas Puncture Site RIGHT RADIAL Blood Gas Patient Temperature 36.4 Arterial Blood pH 7.36 L 7.37-7.43 Arterial Blood Partial Pressure CO2 59 H 35-45 MMHG Arterial Blood Partial Pressure O2 109 H 79-93 MMHG Arterial Blood HCO3 32 H 23-27 MMOL/L Arterial Blood Total CO2 34.2 H 21.0-31.0 MMOL/L Arterial Blood Oxygen Saturation 99 94-100 % Arterial Blood Base Excess 6.9 H -2.5-2.5 MMOL/L Wes Test YES-POS Blood Gas Ventilator Setting NO Blood Gas Inspired Oxygen 4L My Orders Orders - ELADIA HOLLAND DO Ed Iv/Invasive Line Start (10/12/22 19:09) Ekg Tracing (10/12/22 19:09) O2 (10/12/22 19:09) Monitor-Rhythm Ecg Trace Only (10/12/22 19:09) Chest 1 View, Ap/Pa Only (10/12/22 19:09) Bnp Vicente (10/12/22 19:09) Cbc With Automated Diff (10/12/22:) Comprehensive Metabolic Panel (10/12/22 19:09) Creatine Kinase (10/12/22 19:09) Creatine Kinase Mb (10/12/22 19:09) Hs C Reactive Protein (10/12/22:09) Fibrin Degradation Products (10/12/22:09) Lactic Acid Analyzer (10/12/22 19:09) Lipase (10/12/22 19:09) Magnesium (10/12/22:09) Protime With Inr (10/12/22:09) Partial Thromboplastin Time (10/12/22:09) Ua Culture If Indicated (10/12/22:09) Blood Culture (10/12/22:09) Erythrocyte Sedimentation Rate (10/12/22:09) Myoglobin Serum (10/12/22:09) Troponin I [place] (10/12/22 19:09) Albuterol/Ipra Inhalation Soln (Duoneb I (10/12/22 19:15) Dexamethasone Injection (Decadron Injec (10/12/22 19:15) Rt Request For Service (10/12/22:09) Methylprednisolone Sod Succ (Solu-Medrol (10/12/22 19:09) Sputum Culture (10/12/22:09) Covid 19 Inhouse Test (10/12/22:09) Svn Small Volume Nebulizer (10/12/22 19:09) Influenza A And B By Pcr (10/12/22 19:09) Isolation Central Supply Req (10/12/22 19:09) Arterial Blood Gas (10/12/22:09) Rapid Strep A Screen (10/12/22:) Sputum Culture (10/12/22 19:09) Urine Culture (10/12/22 19:09) Ed Iv/Invasive Line Start (10/12/22 19:09) Ed Iv/Invasive Line Start (10/12/22 19:09) Vital Signs Adult Sepsis Patie Q15M (10/12/22 19:09) O2 (3/22/23 19:09) Remove Rings In Anticipation O (10/12/22 19:09) Ed Iv/Invasive Line Start (10/12/22 19:09) Ns Iv 1000 Ml (Sodium Chloride 0.9%) (10/12/22 19:15) Lorazepam Injection (Ativan Injection) (10/12/22 20:00) Lorazepam Injection (Ativan Injection) (10/12/22 19:52) Arterial Blood Draw - Obtain (10/12/22 ) Azithromycin Injection (Zithromax Inject (10/12/22 20:30) Cefepime Injection (Maxipime Injection) (10/12/22 20:30) Ed Admission (Communication) (10/12/22 20:22) Bipap (Bilevel) Set Up (10/12/22 20:22) Medications Given in ED Current Medications Medications Dose Ordered Sig/Patrick Route Start Time Stop Time Status Last Admin Dose Admin Albuterol/ Ipratropium 3 ml ONCE ONCE INH 10/12/22 19:15 10/12/22 19:16 DC 10/12/22 19:29 3 ML Cefepime HCl 1000 mg/Sodium Chloride 50 ml @ 100 mls/hr ONCE ONCE IV 10/12/22 20:30 10/12/22 20:59 10/12/22 20:33 100 MLS/HR Dexamethasone Sodium Phosphate 20 mg ONCE ONCE IH 10/12/22 19:15 10/12/22 19:16 DC 10/12/22 19:29 20 MG Lorazepam 1 mg ONCE ONCE IVP 10/12/22 20:00 10/12/22 20:01 DC 10/12/22 19:54 1 MG Vital Signs/I&O 10/12/22 10/12/22 10/12/22 10/12/22 18:48 19:05 19:10 19:40 Temp 36.7 Pulse 95 Resp 20 B/P (MAP) 105/53 (70) Pulse Ox 95 97 97 O2 Delivery Nasal Cannula Nasal Cannula Nasal Cannula Nasal Cannula O2 Flow Rate 3.00 4.00 4.00 4.00 10/12/22 20:24 Pulse 134 Resp 29 Pulse Ox 94 O2 Flow Rate 100.00 Capillary Refill : Less Than 3 Seconds Blood Pressure Mean: 70 Progress Note : Progress Note PPE WORN COVID, FLU AND STREP TESTING DONE SEPSIS PROTOCOL INITIATED GIVEN: -IV FLUIDS -IV STEROIDS -ANTIBIOTICS -NEBULIZER TREATMENTS -ATIVAN INCLUDED IN DIFFERENTIAL DX: COPD EXACERBATION WITH ACUTE RESPIRATORY FAILURE, CHF, PNEUMONIA, PNEUMOTHORAX, P.E., ACUTE CORONARY SYNDROME, ANXIETY. 1950--PT BECOMING VERY ANXIOUS, INCREASED DYSPNEA--TRIPOD POSITION, DECREASED AERATION, O2 SATS AROUND 90% AFTER NEB TX, ON O2 AT 4L/NC. BP UP TO 180'S SYSTOLIC, HR UP TO 130'S GIVEN ATIVAN, AND PLACED ON BIPAP 2029--PT WITH SIGNIFICANT IMPROVEMENT AFTER BIPAP AND ATIVAN. PT IS NOW ABLE TO RECLINE ON ER CART, RESPIRATIONS EVEN AND MUCH LESS LABORED. INCREASED AERATION, MINIMAL RESIDUAL WHEEZING. O2 SATS 100% ON BIPAP. HR DOWN TO 90'S, BP DOWN TO 120'S SYSTOLIC. PT STATES SHE FEELS MUCH BETTER PT DOES MEET SEPSIS / SIRS CRITERIA BASED ON ELEVATED WBC, AND TACHYCARDIA. CARDIAC ENZYMES AND BNP ARE NEGATIVE/NORMAL. D-DIMER IS BELOW CUT OFF. EKG DOES NOT SHOW ANY ACUTE CHANGES, CXR DOES NOT SHOW ANY INFILTRATES. Diagnostic Imaging Comments CXR--PER RADIOLOGIST REPORT AT 1999 FINDINGS: Heart is normal in size. There is prominent hyperinflation compatible with COPD. There is no focal consolidation or pneumothorax or pleural fluid. There are chronic appearing increased basilar markings. IMPRESSION: COPD changes, as above, with no acute infiltrate or pleural fluid. Reviewed: Reviewed by Me Departure Communication (Admissions) 2012--SPOKE WITH DR. HUMPHREY, HOSPITALIST FOR [facility]. ACCEPTS PT FOR ADMIT. SHE WILL DO ADMIT ORDERS Impression Primary Impression: Acute on chronic respiratory failure with hypoxia and hypercapnia Additional Impressions: COPD with acute exacerbation Anxiety Disposition: ADMITTED INPATIENT Condition: Improved Admissions Decision to Admit Reason: Admit from ER (General) Decision to Admit/Date: Oct 12, 2022 Time/Decision to Admit Time: 20:15 Departure-Patient Inst. Referrals: JAIMEE GREGORY (PCP/Family) Primary Care Physician ELADIA HOLLAND DO Oct 12, 2022 19:18
[2022-10-12 19:33] LABS: BASOPHILS # (AUTO) 0.1 10^3/uL (0.0-0.1); BASOPHILS % (AUTO) 0 % (0-10); EOSINOPHILS # (AUTO) 0.7 10^3/uL (0.0-0.3); EOSINOPHILS % (AUTO) 5 % (0-10); HEMATOCRIT 39 % (35-52); HEMOGLOBIN 12.3 g/dL (11.5-16.0); LYMPHOCYTES # (AUTO) 2.6 10^3/uL (1.0-4.0); LYMPHOCYTES % (AUTO) 19 % (12-44); MEAN CORPUSCULAR HEMOGLOBIN 26 pg (25-34); MEAN CORPUSCULAR HGB CONC 32 g/dL (32-36); MEAN CORPUSCULAR VOLUME 83 fL (80-99); MEAN PLATELET VOLUME 11.6 fL (9.0-12.2); MONOCYTES # (AUTO) 0.9 10^3/uL (0.0-1.0); MONOCYTES % (AUTO) 7 % (0-12); NEUTROPHILS # (AUTO) 9.1 10^3/uL (1.8-7.8); NEUTROPHILS % (AUTO) 68 % (42-75); PLATELET COUNT 263 10^3/uL (130-400); WHITE BLOOD COUNT 13.3 10^3/uL (4.3-11.0)
--- NOTE | 2022-10-12 19:40 | Diagnostic Imaging Report ---
INDICATION: Dyspnea. EXAMINATION: Frontal chest was obtained at 7:29 p.m. COMPARISON: 07/20/2022. FINDINGS: Heart is normal in size. There is prominent hyperinflation compatible with COPD. There is no focal consolidation or pneumothorax or pleural fluid. There are chronic appearing increased basilar markings. IMPRESSION: COPD changes, as above, with no acute infiltrate or pleural fluid. Dictated by: Dictated on workstation # [id number]
[2022-10-12 19:47] LABS: ALBUMIN 4.3 GM/DL (3.2-4.5); CHLORIDE 101 MMOL/L (98-107); POTASSIUM 4.1 MMOL/L (3.6-5.0); SODIUM 141 MMOL/L (135-145)
[2022-10-12 19:49] LABS: GLUCOSE 199 MG/DL (70-105)
[2022-10-12 19:50] LABS: TOTAL PROTEIN 7.6 GM/DL (6.4-8.2)
[2022-10-12 19:51] LABS: BILIRUBIN,TOTAL 0.3 MG/DL (0.1-1.0); CARBON DIOXIDE 27 MMOL/L (21-32)
[2022-10-12] MEDS ORDERED: LORazepam INJ 2 MG/ML (ATIVAN) VIAL ONE (19:52)
[2022-10-12 19:53] LABS: ALKALINE PHOSPHATASE 96 U/L (40-136); CREATININE SERUM 0.79 MG/DL (0.60-1.30); GFR ESTIMATED 85
[2022-10-12 19:54] LABS: BUN/CREATININE RATIO 13
[2022-10-12 19:56] LABS: ALANINE AMINOTRANSFERASE 23 U/L (0-55); MAGNESIUM 1.8 MG/DL (1.6-2.4)
[2022-10-12 19:57] LABS: CREATINE KINASE 105 U/L (29-168); CREATINE KINASE MB 2.2 NG/ML (<6.6); LIPASE 13 U/L (8-78)
[2022-10-12] MEDS ORDERED: LORazepam INJ 2 MG/ML (ATIVAN) VIAL IVP ONE (20:00)
[2022-10-12 20:01] LABS: ABG BASE EXCESS 6.9 MMOL/L (-2.5-2.5); ABG OXYGEN SATURATION 99 % (94-100); ABG PCO2 59 MMHG (35-45); ABG PH 7.36 (7.37-7.43); ABG PO2 109 MMHG (79-93); ABG TCO2 34.2 MMOL/L (21.0-31.0); ALLENS TEST YES-POS
[2022-10-12 20:02] LABS: INSPIRED O2 4L; PATIENT TEMP 36.4; VENTILATOR NO
[2022-10-12 20:12] LABS: FIBRIN DEGRADATION PRODUCTS <= 0.27 UG/ML (0.00-0.49); PARTIAL THROMBOPLASTIN TIME 28 SEC (24-35); PROTHROMBIN TIME PATIENT 13.6 SEC (12.2-14.7)
[2022-10-12 20:14] LABS: ERYTHROCYTE SEDIMENTATION RATE 19 MM/HR (0-30)
[2022-10-12] MEDS ORDERED: AZITHROMYCIN INJECTION 500 MG in NS (IVPB) 250 ML IV ONE (20:30)
[2022-10-12] MEDS: CEFEPIME INJECTION 1,000 MG in NS (IVPB) 50 ML IV ONE ×2 (20:33→21:03)
[2022-10-12 21:22] VITALS: BP 115/70
[2022-10-12] MEDS ORDERED: MELATONIN 3 MG TABLET PO PRN (21:30)
[2022-10-12] MEDS ORDERED: diphenhydrAMINE 25 MG TAB (BENADRYL) PO PRN (21:30)
[2022-10-12] MEDS ORDERED: ANTACID SUSP 30 ML UDC (MYLANTA) PO PRN (21:30)
[2022-10-12] MEDS ORDERED: CALCIUM CARBONATE 500 MG (TUMS) TAB.CHEW PO PRN (21:30)
[2022-10-12] MEDS ORDERED: MILK OF MAGNESIA 400 MG/5 ML 30 ML UDC PO PRN (21:30)
[2022-10-12] MEDS ORDERED: DexMEDEtomidine 250 ML DRIP 250 ML IV SCH (21:30)
[2022-10-12] MEDS ORDERED: ACETAMINOPHEN 325 MG TABLET PO PRN (21:30)
[2022-10-12] MEDS ORDERED: LACTULOSE SYRUP 10GM/15ML (ENULOSE) 30ML UDC PO PRN (21:30)
[2022-10-12] MEDS ORDERED: ONDANSETRON 4 MG/2 ML (SDV) Z0FRAN IV PRN (21:30)
[2022-10-12] MEDS ORDERED: polyethylene glycoL POWDER 17 GM (MIRALAX) PACK PO PRN (21:30)
[2022-10-12] MEDS ORDERED: diphenhydrAMINE 50 MG/ML INJ (BENADRYL) IVP PRN (21:30)
[2022-10-12] MEDS ORDERED: ONDANSETRON 4 MG (ZOFRAN) ORAL DISSOLVE TAB PO PRN (21:30)
[2022-10-12] MEDS ORDERED: BISACODYL 10 MG SUPP (DULCOLAX) PR PRN (21:30)
[2022-10-12] MEDS ORDERED: HYDROmorphone 2 MG/ML VIAL (DILAUDID) IV PRN (21:30)
[2022-10-12] MEDS ORDERED: NS IV 500 ML 500 ML IV PRN (21:30)
[2022-10-12] MEDS ORDERED: inSUlin ASPART (NovoLOG) 1 UNIT/0.01 ML (CHARGE PER UNIT) SC SCH (21:45)
[2022-10-12] MEDS ORDERED: RT-ALBUTEROL/IPRATROPIUM 3 ML (DUONEB) VIAL INH PRN ×2 (21:45)
--- NOTE | 2022-10-12 21:46 | Tele-ICU Progress Note ---
Progress Note 61F with COPD on 4L home O2, IDDM, HTN, HLD, remote BRCA being admitted to ICU for COPD exacerbation. Presented with 1 week increasing SOB, notably worse over the past 3 days. Feels congested but cough minimally prodcutive of clear sputum. She has been using nebs every 2 hours for the past 3 days. Has had significant limitation in exertion due to dyspnea, unable to shower x3 days. On presentation to ED was in mild distress, using accessory muscles, able to speak in short sentences, decreased aeration throughout with diffuse wheezing. After neb given patient had increased distress, tripoding, SpO2 around 90% on home 4L. Ativan given and BiPap initiated with significant improvement in clinical appearance. CXR negative for infiltrates. ABG consistent with chronic CO2 retention - 7.36/59/109/32. Flu, COVID neg. - COPD exacerbation: does not appear to be related to pulmonary infection. Continue BiPap for support with breaks as tolerated. Contiue solumedrol. Duonebs q4h scheduled and q2h PRN. - IDDM: glucose 199 prior to steroids. Sliding scale B q6h. Patient assessed via real-time audiovisual communication system. CCT15 min Focused Exam Lactate Level 10/12/22 19:15: Lactic Acid Level 1.99 Height, Weight, BMI Height: 5'3.00" Weight: 139lbs. 0.0oz. 63.615138nq; 24.00 BMI Method:Stated Time of Focused Exam: 20:30 Lactic Acid Level Laboratory Tests Test 10/12/22 19:15 Lactic Acid Level 1.99 MMOL/L (0.50-2.00) GAGAN HAWTHORNE MD Oct 12, 2022 21:46
[2022-10-12] MEDS ORDERED: RT-ALBUTEROL/IPRATROPIUM 3 ML (DUONEB) VIAL INH SCH (22:00)
[2022-10-12] MEDS: ENOXAPARIN 40 MG/0.4 ML (LOVENOX) SYR SC SCH (22:03)
[2022-10-12] MEDS: NS IV 1000 ML 1,000 ML IV SCH (22:04)
[2022-10-12] MEDS: LORazepam INJ 2 MG/ML (ATIVAN) VIAL IVP PRN (22:04)
[2022-10-12] MEDS: RT-ALBUTEROL/IPRATROPIUM 3 ML (DUONEB) VIAL INH SCH (22:38)
[2022-10-12] MEDS ORDERED: inSUlin ASPART (NovoLOG) 1 UNIT/0.01 ML (CHARGE PER UNIT) ONE (23:40)
[2022-10-12] MEDS: methylPREDNISolone 40 MG/ML (Solu-MEDROL) VIAL IV SCH (23:42)
[2022-10-12] MEDS: inSUlin ASPART (NovoLOG) 1 UNIT/0.01 ML (CHARGE PER UNIT) SC SCH (23:42)
[2022-10-13] MEDS ORDERED: methylPREDNISolone 125 MG (Solu-MEDROL) VIAL IVP SCH
[2022-10-13 02:22] VITALS: BP 97/45
[2022-10-13] MEDS: RT-ALBUTEROL/IPRATROPIUM 3 ML (DUONEB) VIAL INH SCH ×6 (02:22→22:20)
[2022-10-13] MEDS: CEFEPIME 1,000 MG/NS 50 ML IVPB IV SCH ×8 (03:36→20:33)
[2022-10-13 04:02] LABS: ABG BASE EXCESS 3.5 MMOL/L (-2.5-2.5); ABG OXYGEN SATURATION 97 % (94-100); ABG PCO2 57 MMHG (35-45); ABG PO2 90 MMHG (79-93); ABG TCO2 30.9 MMOL/L (21.0-31.0)
[2022-10-13 04:06] LABS: ALLENS TEST YES-POS; INSPIRED O2 30% BIPAP; PATIENT TEMP 36.8; VENTILATOR NO
[2022-10-13 04:16] LABS: ABG PH 7.33 (7.37-7.43)
[2022-10-13 05:11] LABS: BASOPHILS % (AUTO) 0 % (0-10); EOSINOPHILS % (AUTO) 0 % (0-10); HEMATOCRIT 33 % (35-52); HEMOGLOBIN 10.3 g/dL (11.5-16.0); LYMPHOCYTES # (AUTO) 1.1 10^3/uL (1.0-4.0); LYMPHOCYTES % (AUTO) 9 % (12-44); MEAN CORPUSCULAR HEMOGLOBIN 26 pg (25-34); MEAN CORPUSCULAR HGB CONC 31 g/dL (32-36); MEAN CORPUSCULAR VOLUME 84 fL (80-99); MEAN PLATELET VOLUME 12.4 fL (9.0-12.2); MONOCYTES # (AUTO) 0.1 10^3/uL (0.0-1.0); MONOCYTES % (AUTO) 1 % (0-12); NEUTROPHILS # (AUTO) 10.6 10^3/uL (1.8-7.8); NEUTROPHILS % (AUTO) 89 % (42-75); PLATELET COUNT 215 10^3/uL (130-400)
[2022-10-13 05:27] LABS: ALBUMIN 3.8 GM/DL (3.2-4.5); POTASSIUM 4.2 MMOL/L (3.6-5.0)
[2022-10-13 05:28] LABS: CALCIUM 9.3 MG/DL (8.5-10.1)
[2022-10-13 05:30] LABS: BAND NEUTROPHILS 0 %; EOSINOPHILS % (MANUAL) 0 %; LYMPHOCYTES % (MANUAL) 10 %; MONOCYTES % (MANUAL) 0 %; NEUTROPHILS % (MANUAL) 90 %; RBC MORPH NORMAL; TOTAL PROTEIN 6.6 GM/DL (6.4-8.2)
[2022-10-13 05:31] LABS: BILIRUBIN,TOTAL 0.2 MG/DL (0.1-1.0)
[2022-10-13 05:33] LABS: CREATININE SERUM 0.83 MG/DL (0.60-1.30); PHOSPHORUS 2.2 MG/DL (2.3-4.7)
[2022-10-13 05:36] LABS: MAGNESIUM 1.8 MG/DL (1.6-2.4)
[2022-10-13] MEDS: MAGNESIUM 1 GM/100 ML IVPB 100 ML IV SCH ×2 (05:49→06:01)
[2022-10-13] MEDS: POTASSIUM CL 10MEQ/50ML IVPB 50 ML IV SCH (05:49)
[2022-10-13] MEDS: KCL 20 MEQ TAB (K-DUR) PO SCH (05:49)
[2022-10-13] MEDS: inSUlin ASPART (NovoLOG) 1 UNIT/0.01 ML (CHARGE PER UNIT) SC SCH ×4 (06:00→20:56)
[2022-10-13] MEDS ORDERED: inSUlin ASPART (NovoLOG) 1 UNIT/0.01 ML (CHARGE PER UNIT) SC SCH (06:00)
[2022-10-13] MEDS: methylPREDNISolone 40 MG/ML (Solu-MEDROL) VIAL IV SCH ×4 (06:01→23:15)
--- NOTE | 2022-10-13 07:04 | Diagnostic Imaging Report ---
EXAMINATION: Chest 1 view HISTORY: Pneumonia COMPARISON: 10/12/2022 FINDINGS: Heart size and pulmonary vasculature are normal. There is a small right pleural effusion with right basilar atelectasis or consolidation. No pneumothorax. The osseous structures are intact. IMPRESSION: 1. Small right pleural effusion with adjacent atelectasis or consolidation. Dictated by: Dictated on workstation # [id number]
[2022-10-13 07:07] VITALS: BP 105/47
[2022-10-13] MEDS: DOCUSATE SODIUM 100 MG (COLACE) CAP PO SCH ×2 (08:34→20:50)
[2022-10-13] MEDS: LORATADINE (CLARITIN) 10 MG TAB PO SCH (08:34)
[2022-10-13] MEDS: SENNOSIDES 8.6 MG (SENOKOT) TAB PO SCH ×2 (08:34→20:50)
[2022-10-13] MEDS ORDERED: FLU QUADRIvalent (6 months+) 60 mcg/0.5 ml 2022-23 (Fluzone) IM ONE (08:45)
[2022-10-13] MEDS: LORazepam INJ 2 MG/ML (ATIVAN) VIAL IVP PRN ×2 (08:51→14:41)
[2022-10-13] MEDS ORDERED: CEFEPIME INJECTION 2,000 MG in NS (IVPB) 50 ML IV SCH (09:00)
[2022-10-13 09:05] LABS: BILIRUBIN,URINE NEGATIVE (NEGATIVE); CLARITY,URINE CLEAR; COLOR,URINE YELLOW; GLUCOSE, URINE (UA) 3+ (NEGATIVE); KETONES,URINE NEGATIVE (NEGATIVE); LEUKOCYTE ESTERASE ,URINE NEGATIVE (NEGATIVE); NITRITE,URINE NEGATIVE (NEGATIVE); PROTEIN,URINE NEGATIVE (NEGATIVE)
[2022-10-13 09:48] LABS: BACTERIA,URINE NEGATIVE /HPF; SQUAMOUS EPITHELIAL CELL,UR 0-2 /HPF; WBC,URINE 0-2 /HPF
[2022-10-13 10:29] VITALS: BP 117/63
[2022-10-13] MEDS: RT--FLUTICASONE/SALMETEROL 113-14 (AIRDUO RespiCLICK) IH SCH ×2 (11:30→19:09)
[2022-10-13] MEDS ORDERED: POT PHOS/NA PHOS (K-PHOS NEUTRAL) PO ONE (12:00)
--- NOTE | 2022-10-13 12:56 | Tele-ICU Progress Note ---
Subjective Date Seen by a Provider: Oct 13, 2022 Time Seen by a Provider: 12:55 Subjective/Events-last exam (Tele-ICU Physician , Progress Note ) Service provided via interactive audio and video telecommunications E-CARE system to a patient admitted to ICU bed in [facility]. Patient is seen today due to persistent need of ICU care Available chart/ vitals / labs / Images reviewed Video assessment done using teleICU camera, rest of exam as per RN Discussed with RN Events overnight : Afebrile hemodynamically stable Respiratory - 6L I/O = Drips: ns Pressors- no Hospital course: (10.12) Admitted a 61 y/o with acute COPD exacerbation. 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 Discussed with RN to reach out if any questions or concerns Case and care daily discussed on multidisciplinary rounds ( RN, PharmD, Hand Cell Tuber , Respiratory Therapy, easement worker ) A total of 31 minutes of critical care time was devoted to this patient today, required to treat and/or prevent further deterioration of critical care condition ( as above ) . I am remotely monitoring this patient from another state. I am unable to do the bedside exam, and history/physical and pertinent information is taken from other notes in the computer and bedside staff. Sepsis Event Evaluation Height, Weight, BMI Height: 5'3.00" Weight: 139lbs. 0.0oz. 63.307558lt; 25.59 BMI Method:Stated Focused Exam Lactate Level 10/12/22 19:15: Lactic Acid Level 1.99 Time of Focused Exam: 20:30 Exam Exam Patient acknowledged, consented, and participated in this virtual visit which wa s conducted using real time audio/video Vital Signs Date Time Temp Pulse Resp B/P (MAP) Pulse Ox O2 Delivery O2 Flow Rate FiO2 10/13/22 12:45 94 10/13/22 12:00 108 19 124/57 (79) 96 Nasal Cannula 6.00 10/13/22 11:56 Nasal Cannula 6.00 10/13/22 11:30 95 Nasal Cannula 6.00 10/13/22 11:00 82 23 110/54 (72) 95 NIV Bilevel 30.00 10/13/22 10:29 80 22 95 30.00 10/13/22 10:00 83 35 117/63 (81) 95 NIV Bilevel 30.00 10/13/22 09:15 NIV Bilevel 30.00 10/13/22 09:00 100 21 119/57 (77) 94 Nasal Cannula 6.00 10/13/22 08:23 98 NIV Bilevel 30 10/13/22 08:15 36.0 96 Nasal Cannula 6.00 10/13/22 08:00 77 21 122/68 (86) 94 NIV Bilevel 30.00 10/13/22 07:07 72 22 96 30.00 10/13/22 07:00 70 10/13/22 07:00 72 29 105/47 (66) 96 NIV Bilevel 30.00 10/13/22 06:00 79 28 120/66 (84) 96 NIV Bilevel 30.00 10/13/22 05:00 79 18 112/50 (70) 96 NIV Bilevel 30.00 10/13/22 04:00 96 NIV Bilevel 30 10/13/22 04:00 92 19 136/67 (90) 97 NIV Bilevel 30.00 10/13/22 03:53 36.8 10/13/22 03:00 82 26 94/50 (65) 95 NIV Bilevel 30.00 10/13/22 02:22 77 22 96 30.00 10/13/22 02:00 36.6 10/13/22 02:00 75 23 96/51 (66) 95 NIV Bilevel 30.00 10/13/22 01:00 84 10/13/22 01:00 78 23 96/44 (61) 96 NIV Bilevel 30.00 10/13/22 00:00 82 15 92/48 (63) 96 NIV Bilevel 30.00 10/13/22 00:00 96 NIV Bilevel 30 10/12/22 23:27 36.8 10/12/22 23:00 95 27 82/49 (60) 96 NIV Bilevel 30.00 10/12/22 22:38 97 27 96 30.00 10/12/22 22:30 100 28 93 NIV Bilevel 30.00 10/12/22 22:00 112 31 99/86 (90) 93 NIV Bilevel 30.00 10/12/22 21:49 36.6 112 22 189/94 (125) 94 NIV Bilevel 30.00 10/12/22 21:36 NIV Bilevel 30 10/12/22 21:32 100 10/12/22 21:30 105 29 125/87 (100) 90 NIV Bilevel 30.00 10/12/22 21:22 36.7 93 95 10/12/22 21:21 114 32 96 30.00 10/12/22 21:15 114 29 189/94 (125) 96 NIV Bilevel 30.00 10/12/22 20:55 93 115/70 100 NIV Bilevel 10/12/22 20:24 134 29 94 100.00 10/12/22 19:40 97 Nasal Cannula 4.00 10/12/22 19:10 97 Nasal Cannula 4.00 10/12/22 19:05 Nasal Cannula 4.00 10/12/22 18:48 36.7 95 20 105/53 (70) 95 Nasal Cannula 3.00 I & O 10/13/22 07:00 Intake Total 1455 ml Output Total 0 ml Balance 1455 ml Height & Weight Height: 5'3.00" Weight: 139lbs. 0.0oz. 63.405102kd; 25.59 BMI Method:Stated General Appearance: Other Respiratory: Other (INCRAESED AERATION, DECREASED WHEEZING ON BIPAP) Cardiovascular: No Edema, No Murmur, Tachycardia Capillary Refill: Less Than 3 Seconds Gastrointestinal: non tender, soft Results Lab Laboratory Tests 10/12/22 19:15 10/13/22 04:27 Assessment/Plan Assessment/Plan 1 ZULEMA FUNK MD Oct 13, 2022 12:56
--- NOTE | 2022-10-13 13:23 | History & Physical ---
TERRI MARCUS 10/13/22 1323: History of Present Illness History of Present Illness Reason for visit/HPI Blanca Jenkins is a 61 yo F w/ a hx of COPD on 4LO2 at home, IDDM, and HTN who presented on 10/12 with increased SOB, cough x1 week. Blanca says she has been with worsening SOB and been coughing up mucus. Over the last 3 days she says she was using her nebulizer tx nearly every 2 hours. In ED, she was found to have an ABG consistent with chronic CO2 retention, and she was put on bipap for SOB. An initial CXR was negative, but on repeat after worsening respiratory status, it showed a Sm R pleural effusion w/ possible pneumonia. Today she is still SOB. She tolerated time off the bipap 30% for a meal just prior to visit, but needed to go back on after she was finished. She continues to endorse cough with mucus production, and endorsed buring with urination. Date of Admission Oct 12, 2022 at 20:56 Time Seen by a Provider: 11:00 I consulted on this patient on 10/13/22 13:00 Attending Physician [facility] Admitting Physician Admitting Physician: Leann Humphrey DO Attending Physician: Leann Humphrey DO Consult Allergies and Home Medications Allergies Coded Allergies: No Known Drug Allergies (Unverified , 06/12/15) Patient Home Medication List Home Medication List Reviewed: Yes Albuterol Sulfate (Ventolin Hfa) 90 Mcg Hfa.aer.ad, 2 PUFF IH Q4H PRN for SHORTNESS OF BREATH, (Reported) Entered as Reported by: EVARISTO LAROSE on 12/10/20 0954 Last Action: Reviewed Albuterol Sulfate (Albuterol Sulfate) 2.5 Mg/3 Ml (0.083 %) Vial.neb, 3 ML NEB Q6H PRN for SHORTNESS OF BREATH, (Reported) Entered as Reported by: EVARISTO LAROSE on 05/03/22 1053 Last Action: Reviewed Ascorbic Acid (Vitamin C) 500 Mg Capsule, 500 MG PO DAILY, (Reported) Entered as Reported by: CONSTANCE LARSON on 07/20/22 0923 Last Action: Reviewed Atorvastatin Calcium (Atorvastatin Calcium) 20 Mg Tablet, 20 MG PO HS, (Reported) Entered as Reported by: EVARISTO LAROSE on 10/13/221537 Last Action: Reviewed Calcium Carbonate (Calcium) 600 Mg Calcium (1500 Mg) Tablet, 600 MG PO BID, (Reported) Entered as Reported by: LEATHA JUSTIN on 05/03/22950 Last Action: Reviewed Cholecalciferol (Vitamin D3) (Vitamin D3) 25 Mcg (1000 Unit) Capsule, 25 MCG PO DAILY, (Reported) Entered as Reported by: EVARISTO LAROSE on 05/03/22 105 Last Action: Reviewed Cinnamon Bark (Cinnamon) 500 Mg Capsule, 1,000 MG PO BID, (Reported) Entered as Reported by: EVARISTO LAROSE on 10/13/221537 Last Action: Reviewed Cyanocobalamin (Vitamin B-12) (Vitamin B12) 5,000 Mcg Tab.rapdis, 5,000 MCG PO DAILY, (Reported) Entered as Reported by: CONSTANCE LARSON on 07/20/22922 Last Action: Reviewed Fluticasone/Salmeterol (Advair Hfa 115-21 Mcg Inhaler) 115 Mcg-21 Mcg/Actuation Hfa.aer.ad, 2 PUFF IH BID, (Reported) Entered as Reported by: CONSTANCE LARSON on 07/20/22922 Last Action: Reviewed Insulin Glargine,Hum.rec.anlog (Lantus Solostar) 100 Unit/Ml (3 Ml) Insuln.pen, 35 UNITS SQ HS, (Reported) Entered as Reported by: EVARISTO LAROSE on 09/14/211543 Last Action: Reviewed Lisinopril (Lisinopril) 5 Mg Tablet, 5 MG PO DAILY, (Reported) Entered as Reported by: LEATHA JUSTIN on 05/03/22950 Last Action: Reviewed Metformin HCl (Metformin HCl ER) 500 Mg Tab.er.24, 500 MG PO DAILY, (Reported) Entered as Reported by: EVARISTO LAROSE on 10/13/221537 Last Action: Reviewed Montelukast Sodium (Montelukast Sodium) 10 Mg Tablet, 10 MG PO DAILY, (Reported) Entered as Reported by: EVARISTO LAROSE on 09/14/211543 Last Action: Reviewed Pantoprazole Sodium (Pantoprazole Sodium) 40 Mg Tablet.dr, 40 MG PO DAILY, (Reported) Entered as Reported by: EVARISTO LAROSE on 10/13/221537 Last Action: Reviewed Polyethylene Glycol 400 (Visine Dry Eye Relief) 1 % Drops, 1 DROP OP UD PRN for DRY EYES, (Reported) Entered as Reported by: CONSTANCE LARSON on 07/20/22922 Last Action: Reviewed Sertraline HCl (Sertraline HCl) 100 Mg Tablet, 100 MG PO HS, (Reported) Entered as Reported by: ABHI ANSARI on 08/20/151722 Last Action: Reviewed Sertraline HCl (Sertraline HCl) 50 Mg Tablet, 50 MG PO HS, (Reported) Entered as Reported by: EVARISTO LAROSE on 10/13/221537 Last Action: Reviewed Tiotropium Flint (Spiriva Respimat 2.5MCG/ACTUATION) 2.5 Mcg/Actuation Mist.inhal, 2 PUFF IH DAILY, (Reported) Entered as Reported by: CONSTANCE LARSON on 07/20/22922 Last Action: Reviewed Discontinued Medications Acetaminophen (Tylenol) 325 Mg Tablet, 650 MG PO Q6H PRN for PAIN-MILD (1-4), (Reported) Discontinued Reason: No Longer Taking Entered as Reported by: CONSTANCE LARSON on 07/20/22922 Last Action: Discontinued Atorvastatin Calcium (Lipitor) 40 Mg Tablet, 40 MG PO DAILY Discontinued Reason: No Longer Taking Prescribed by: BEATRICE ARTEAGA on 07/20/221055 Last Action: Discontinued Dulaglutide (Trulicity) 0.75 Mg/0.5 Ml Pen.injctr, 0.75 MG SQ FRI, (Reported) Discontinued Reason: No Longer Taking Entered as Reported by: EVARISTO LAROSE on 09/14/21 154 Last Action: Discontinued Metformin HCl (Metformin HCl ER) 500 Mg Tab.er.24h, 500 MG PO DAILY Discontinued Reason: No Longer Taking Prescribed by: BEATRICE ARTEAGA on 07/20/22 105 Last Action: Discontinued Pantoprazole Sodium (Pantoprazole Sodium) 40 Mg Tablet.dr, 40 MG PO DAILY, (Reported) Discontinued Reason: No Longer Taking Entered as Reported by: EVARISTO LAROSE on 12/10/20 0954 Last Action: Discontinued [Cinnamon] 1000MG CAPSULE, 1,000 MG PO BID, (Reported) Discontinued Reason: No Longer Taking Entered as Reported by: CONSTANCE LARSON on 07/20/22922 Last Action: Discontinued Past Mxjnnmx-Bkqooz-Lgslkg Hx Patient Social History Tobacco Use?: Yes Tobacco type used: Cigarettes Smoking Status: Light Tobacco Smoker Smokeless Tobacco Frequency: Current Someday User Use of E-Cig and/or Vaping dev: No Substance use?: No Alcohol Use?: No Pt feels they are or have been: No Immunizations Up To Date First/Initial COVID19 Vaccinat: N/A Second COVID19 Vaccination [place]: N/A Tetanus Booster (TDap): Less Than 5 Years Hepatitis A: No Hepatitis B: No PED Vaccines UTD: Yes Current Status status: No status: No Advance Directives: No Communicates: Verbally Primary Language: Peruvian Preferred Spoken Language: Peruvian Is interpretation needed?: No Sensory deficits: Vision impairment Implanted or Applied Medical D: None Past Medical History Surgeries: Abdominal, Breast, Tubal Ligation COPD High Cholesterol, Hypertension Headaches /Migraines 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, Menopausal Arthritis Diabetes, Non-Insulin dep Breast Did You Recieve Any Treatments: Yes What Type of Treatment Did You: Surgical Intervention Anxiety, Depression Psoriasis Blood Disorders: No PMHx: COPD O2 dependent Tremor Smoker Breast cancer s/p resection only Diabetes Osteoporosis Depression Anxiety GERD Psoriasis SurgHx: Bilateral mastectomy Bilateral tubal ligation Hiatal hernia repair Family Medical History Cancer, Diabetes, Psychiatric Problems Review of Systems Constitutional: No chills, No diaphoresis, No dizziness, No fever EENTM: No hearing loss, No blurred vision, No vision loss Respiratory: cough, dyspnea on exertion; No hemoptysis, No orthopnea; short of breath, wheezing Cardiovascular: No chest pain, No palpitations Gastrointestinal: No abdominal pain, No diarrhea, No hematemesis, No heartburn Genitourinary: dysuria, frequency Musculoskeletal: no symptoms reported Skin: no symptoms reported Psychiatric/Neurological: Denies Anxiety, Denies Depressed All Other Systems Reviewed Negative Unless Noted: Yes Physical Exam Vital Signs Vital Signs - First Documented 10/12/22 10/12/22 18:48 21:36 Temp 36.7 Pulse 95 Resp 20 B/P (MAP) 105/53 (70) Pulse Ox 95 O2 Delivery Nasal Cannula O2 Flow Rate 3.00 FiO2 30 Capillary Refill : Less Than 3 Seconds Height, Weight, BMI Height: 5'3.00" Weight: 139lbs. 0.0oz. 63.083659hr; 25.59 BMI Method:Stated General Appearance: WD/WN, Mild Distress Eyes: Bilateral Eye Normal Inspection, Bilateral Eye PERRL, Bilateral Eye EOMI HEENT: PERRL/EOMI, Moist Mucous Membranes; No Scleral Icterus (L), No Scleral Icterus (R) Neck: Non Tender, Supple; No JVD Respiratory: Accessory Muscle Use, Wheezing Cardiovascular: Regular Rate, Rhythm, No JVD, No Murmur, Normal Peripheral Pulses Gastrointestinal: Non Tender, Soft; No Distended Back: Normal Inspection Extremity: Normal Capillary Refill, Normal Inspection, Non Tender, No Pedal Edema Neurologic/Psychiatric: Alert, Oriented x3, Normal Mood/Affect Skin: Normal Color, Warm/Dry Assessment/Plan Assessment and Plan Acute on CHRF Pneumonia -Repeat cxr with consolidation -wbc count elevated -mucus production increased -hx copd on 4L o2 -on cefepime, azithromycin -duonebs q4 -methylprednisone, montelukast -bipap 30%, breaks as tolerated IDDM -SSI HTN -hold home med for now Dvt ppx: lovenox diet: as tolerated gi ppx: ppi Dispo: on abx, bipap, breaks as tolerated. hold in icu. Admission Diagnosis Admission Status: Inpatient Order (span 2 midnights) Reason for Inpatient Admission: acute on chronic HRF LEANN HUMPHREY DO 10/14/22 0511: Allergies and Home Medications Allergies Coded Allergies: No Known Drug Allergies (Unverified , 06/12/15) Patient Home Medication List Home Medication List Reviewed: Yes Albuterol Sulfate (Ventolin Hfa) 90 Mcg Hfa.aer.ad, 2 PUFF IH Q4H PRN for SHORTNESS OF BREATH, (Reported) Entered as Reported by: EVARISTO LAROSE on 12/10/20 0909 Last Action: Reviewed Albuterol Sulfate (Albuterol Sulfate) 2.5 Mg/3 Ml (0.083 %) Vial.neb, 3 ML NEB Q6H PRN for SHORTNESS OF BREATH, (Reported) Entered as Reported by: EVARISTO LAROSE on 05/03/22 1053 Last Action: Reviewed Ascorbic Acid (Vitamin C) 500 Mg Capsule, 500 MG PO DAILY, (Reported) Entered as Reported by: CONSTANCE LARSON on 07/20/22922 Last Action: Reviewed Atorvastatin Calcium (Atorvastatin Calcium) 20 Mg Tablet, 20 MG PO HS, (Reported) Entered as Reported by: EVARISTO LAROSE on 10/13/221537 Last Action: Reviewed Calcium Carbonate (Calcium) 600 Mg Calcium (1500 Mg) Tablet, 600 MG PO BID, (Reported) Entered as Reported by: LEATHA JUSTIN on 05/03/22950 Last Action: Reviewed Cholecalciferol (Vitamin D3) (Vitamin D3) 25 Mcg (1000 Unit) Capsule, 25 MCG PO DAILY, (Reported) Entered as Reported by: EVARISTO LAROSE on 05/03/221052 Last Action: Reviewed Cinnamon Bark (Cinnamon) 500 Mg Capsule, 1,000 MG PO BID, (Reported) Entered as Reported by: EVARISTO LAROSE on 10/13/221537 Last Action: Reviewed Cyanocobalamin (Vitamin B-12) (Vitamin B12) 5,000 Mcg Tab.rapdis, 5,000 MCG PO DAILY, (Reported) Entered as Reported by: CONSTANCE LARSON on 07/20/22922 Last Action: Reviewed Fluticasone/Salmeterol (Advair Hfa 115-21 Mcg Inhaler) 115 Mcg-21 Mcg/Actuation Hfa.aer.ad, 2 PUFF IH BID, (Reported) Entered as Reported by: CONSTANCE LARSON on 07/20/22922 Last Action: Reviewed Insulin Glargine,Hum.rec.anlog (Lantus Solostar) 100 Unit/Ml (3 Ml) Insuln.pen, 35 UNITS SQ HS, (Reported) Entered as Reported by: EVARISTO LAROSE on 09/14/211543 Last Action: Reviewed Lisinopril (Lisinopril) 5 Mg Tablet, 5 MG PO DAILY, (Reported) Entered as Reported by: LEATHA JUSTIN on 05/03/22950 Last Action: Reviewed Metformin HCl (Metformin HCl ER) 500 Mg Tab.er.24, 500 MG PO DAILY, (Reported) Entered as Reported by: EVARISTO LAROSE on 10/13/221537 Last Action: Reviewed Montelukast Sodium (Montelukast Sodium) 10 Mg Tablet, 10 MG PO DAILY, (Reported) Entered as Reported by: EVARISTO LAROSE on 09/14/211543 Last Action: Reviewed Pantoprazole Sodium (Pantoprazole Sodium) 40 Mg Tablet.dr, 40 MG PO DAILY, (Reported) Entered as Reported by: EVARISTO LAROSE on 10/13/221537 Last Action: Reviewed Polyethylene Glycol 400 (Visine Dry Eye Relief) 1 % Drops, 1 DROP OP UD PRN for DRY EYES, (Reported) Entered as Reported by: CONSTANCE LARSON on 07/20/22922 Last Action: Reviewed Sertraline HCl (Sertraline HCl) 100 Mg Tablet, 100 MG PO HS, (Reported) Entered as Reported by: ABHI ANSARI on 08/20/151722 Last Action: Reviewed Sertraline HCl (Sertraline HCl) 50 Mg Tablet, 50 MG PO HS, (Reported) Entered as Reported by: EVARISTO LAROSE on 10/13/221537 Last Action: Reviewed Tiotropium Flint (Spiriva Respimat 2.5MCG/ACTUATION) 2.5 Mcg/Actuation Mist.inhal, 2 PUFF IH DAILY, (Reported) Entered as Reported by: CONSTANCE LARSON on 07/20/22922 Last Action: Reviewed Discontinued Medications Acetaminophen (Tylenol) 325 Mg Tablet, 650 MG PO Q6H PRN for PAIN-MILD (1-4), (Reported) Discontinued Reason: No Longer Taking Entered as Reported by: CONSTANCE LARSON on 07/20/22922 Last Action: Discontinued Atorvastatin Calcium (Lipitor) 40 Mg Tablet, 40 MG PO DAILY Discontinued Reason: No Longer Taking Prescribed by: BEATRICE ARTEAGA on 07/20/22 105 Last Action: Discontinued Dulaglutide (Trulicity) 0.75 Mg/0.5 Ml Pen.injctr, 0.75 MG SQ FRI, (Reported) Discontinued Reason: No Longer Taking Entered as Reported by: EVARISTO LAROSE on 09/14/211543 Last Action: Discontinued Metformin HCl (Metformin HCl ER) 500 Mg Tab.er.24h, 500 MG PO DAILY Discontinued Reason: No Longer Taking Prescribed by: BEATRICE ARTEAGA on 07/20/221054 Last Action: Discontinued Pantoprazole Sodium (Pantoprazole Sodium) 40 Mg Tablet.dr, 40 MG PO DAILY, (Reported) Discontinued Reason: No Longer Taking Entered as Reported by: EVARISTO LAROSE on 12/10/20953 Last Action: Discontinued [Cinnamon] 1000MG CAPSULE, 1,000 MG PO BID, (Reported) Discontinued Reason: No Longer Taking Entered as Reported by: CONSTANCE LARSON on 07/20/22922 Last Action: Discontinued Past Piaksli-Rhnszq-Hevphn Hx Patient Social History Marrital Status: single Smoking Status: Current Everyday Smoker Review of Systems Constitutional: see HPI Physical Exam General Appearance: No Apparent Distress, WD/WN, Chronically ill Respiratory: Crackles, Decreased Breath Sounds, Wheezing Assessment/Plan Admission Diagnosis Admission Status: Inpatient Order (span 2 midnights) Reason for Inpatient Admission: resp failure Supervisory-Addendum Brief Verification & Attestation Participated in pt care: history, MDM, physical Personally performed: exam, history, MDM, supervision of care Care discussed with: Medical Student Procedures: n/a Results interpretation: Verified all documentation Verification and Attestation of Medical Student E/M Service A medical student performed and documented this service in my presence. I reviewed and verified all information documented by the medical student and made modifications to such information, when appropriate. I personally performed the physical exam and medical decision making. Leann Humphrey Oct 14, 2022,05:11 TERRI MARCUS Oct 13, 2022 13:23 LEANN HUMPHREY DO Oct 14, 2022 05:11
[2022-10-13] MEDS: NS IV 1000 ML 1,000 ML IV SCH (14:29)
[2022-10-13 14:50] VITALS: BP 131/66
[2022-10-13] MEDS ORDERED: ATOR20TA66 PO (15:38)
[2022-10-13] MEDS ORDERED: METF-478 PO (15:38)
[2022-10-13] MEDS ORDERED: CINN500C2 PO (15:38)
[2022-10-13] MEDS ORDERED: SERT-413 PO (15:38)
[2022-10-13] MEDS ORDERED: PANT40TA52 PO (15:38)
[2022-10-13] MEDS: LORazepam 0.5 MG (ATIVAN) TABLET PO PRN (19:39)
[2022-10-13] MEDS: ENOXAPARIN 40 MG/0.4 ML (LOVENOX) SYR SC SCH (20:33)
[2022-10-13] MEDS: MONTELUKAST 10 MG (SINGULAIR) TAB PO SCH (20:52)
[2022-10-13] MEDS: AZITHROMYCIN INJECTION 250 MG in NS (IVPB) 250 ML IV SCH (21:50)
[2022-10-13 22:20] VITALS: BP 90/67
[2022-10-14 02:39] VITALS: BP 132/68
[2022-10-14] MEDS: RT-ALBUTEROL/IPRATROPIUM 3 ML (DUONEB) VIAL INH SCH ×6 (02:39→22:58)
[2022-10-14] MEDS: CEFEPIME 1,000 MG/NS 50 ML IVPB IV SCH ×8 (03:50→22:04)
[2022-10-14 05:04] LABS: BASOPHILS % (AUTO) 0 % (0-10); EOSINOPHILS % (AUTO) 0 % (0-10); HEMATOCRIT 29 % (35-52); LYMPHOCYTES # (AUTO) 1.1 10^3/uL (1.0-4.0); LYMPHOCYTES % (AUTO) 6 % (12-44); MEAN CORPUSCULAR HEMOGLOBIN 26 pg (25-34); MEAN CORPUSCULAR HGB CONC 31 g/dL (32-36); MEAN CORPUSCULAR VOLUME 84 fL (80-99); MONOCYTES # (AUTO) 0.6 10^3/uL (0.0-1.0); MONOCYTES % (AUTO) 4 % (0-12); NEUTROPHILS # (AUTO) 15.3 10^3/uL (1.8-7.8); NEUTROPHILS % (AUTO) 89 % (42-75); PLATELET COUNT 199 10^3/uL (130-400); WHITE BLOOD COUNT 17.2 10^3/uL (4.3-11.0)
[2022-10-14 05:29] LABS: ABG BASE EXCESS 5.1 MMOL/L (-2.5-2.5); ABG OXYGEN SATURATION 98 % (94-100); ABG PCO2 49 MMHG (35-45); ABG PO2 90 MMHG (79-93); ABG TCO2 31.5 MMOL/L (21.0-31.0)
[2022-10-14 05:31] LABS: ALBUMIN 3.5 GM/DL (3.2-4.5); BILIRUBIN,TOTAL 0.2 MG/DL (0.1-1.0); CALCIUM 8.6 MG/DL (8.5-10.1); CREATININE SERUM 0.66 MG/DL (0.60-1.30); PHOSPHORUS 2.6 MG/DL (2.3-4.7); POTASSIUM 3.8 MMOL/L (3.6-5.0); TOTAL PROTEIN 5.8 GM/DL (6.4-8.2)
[2022-10-14 05:32] LABS: ALLENS TEST YES-POS; INSPIRED O2 30%; PATIENT TEMP 36.3; VENTILATOR NO
[2022-10-14] MEDS: MAGNESIUM 1 GM/100 ML IVPB 100 ML IV SCH (05:51)
[2022-10-14] MEDS: KCL 20 MEQ TAB (K-DUR) PO SCH (05:51)
[2022-10-14] MEDS: POTASSIUM CL 10MEQ/50ML IVPB 50 ML IV SCH ×3 (05:51→06:31)
[2022-10-14] MEDS: inSUlin ASPART (NovoLOG) 1 UNIT/0.01 ML (CHARGE PER UNIT) SC SCH ×5 (06:11→21:13)
--- NOTE | 2022-10-14 06:27 | Progress Note ---
Subjective Date Seen by a Provider: Oct 14, 2022 Time Seen by a Provider: 11:00 Subjective/Events-last exam Still biPAP dependent No major issues otherwise Nicotine patch ordered Very anxious Review of Systems Pulmonary: Dyspnea Focused Exam Lactate Level 10/12/22 19:15: Lactic Acid Level 1.99 Time of Focused Exam: 20:30 Objective Exam Last Set of Vital Signs Vital Signs Date Time Temp Pulse Resp B/P (MAP) Pulse Ox O2 Delivery O2 Flow Rate FiO2 10/14/22 06:00 75 135/68 (90) 96 NIV Bilevel 30.00 10/14/22 05:00 22 10/14/22 04:00 30 10/14/22 04:00 36.3 Capillary Refill : Less Than 3 Seconds I&O Intake and Output 10/14/22 00:00 Intake Total 1505 ml Output Total 1200 ml Balance 305 ml Intake Oral 1205 ml IV Total 300 ml Output Urine Total 1200 ml # Voids 2 General: Alert, Oriented X3, Cooperative, No Acute Distress Heart: Regular Rate, Normal S1, Normal S2, No Murmurs Psych/Mental Status: Mental Status NL, Mood NL Results Lab Laboratory Tests 10/13/22 11:37: Glucometer 245H 10/13/22 17:42: Glucometer 250H 10/13/22 20:54: Glucometer 295H 10/14/22 04:44: White Blood Count 17.2H, Red Blood Count 3.43L, Hemoglobin 9.0L, Hematocrit 29L, Mean Corpuscular Volume 84, Mean Corpuscular Hemoglobin 26, Mean Corpuscular Hemoglobin Concent 31L, Red Cell Distribution Width 14.1, Platelet Count 199, Mean Platelet Volume 12.0, Immature Granulocyte % (Auto) 1, Neutrophils (%) (Auto) 89H, Lymphocytes (%) (Auto) 6L, Monocytes (%) (Auto) 4, Eosinophils (%) (Auto) 0, Basophils (%) (Auto) 0, Neutrophils # (Auto) 15.3H, Lymphocytes # (Auto) 1.1, Monocytes # (Auto) 0.6, Eosinophils # (Auto) 0.0, Basophils # (Auto) 0.0, Immature Granulocyte # (Auto) 0.2H, Sodium Level 142, Potassium Level 3.8, Chloride Level 108H, Carbon Dioxide Level 23, Anion Gap 11, Blood Urea Nitrogen 19H, Creatinine 0.66, Estimat Glomerular Filtration Rate 99, BUN/Creatinine Ratio 29, Glucose Level 226H, Calcium Level 8.6, Corrected Calcium 9.0, Phosphorus Level 2.6, Magnesium Level 2.0, Total Bilirubin 0.2, Aspartate Amino Transf (AST/SGOT) 11, Alanine Aminotransferase (ALT/SGPT) 15, Alkaline Phosphatase 67, Total Protein 5.8L, Albumin 3.5 10/14/22 05:25: Blood Gas Puncture Site RIGHT RADIAL, Blood Gas Patient Temperature 36.3, Arterial Blood pH 7.40, Arterial Blood Partial Pressure CO2 49H, Arterial Blood Partial Pressure O2 90, Arterial Blood HCO3 30H, Arterial Blood Total CO2 31.5H, Arterial Blood Oxygen Saturation 98, Arterial Blood Base Excess 5.1H, Wes Test YES-POS, Blood Gas Ventilator Setting NO, Blood Gas Inspired Oxygen 30% Microbiology 10/12/22 MRSA Screen - Final, Complete MRSA not isolated 10/12/22 Blood Culture - Preliminary, Resulted No growth Assessment/Plan Assessment/Plan Assess & Plan/Chief Complaint Acute on CHRF Pneumonia -Repeat cxr with consolidation -wbc count elevated -mucus production increased -hx copd on 4L o2 -on cefepime, azithromycin -duonebs q4 -methylprednisone, montelukast -bipap 30%, breaks as tolerated IDDM -SSI HTN -hold home med for now Dvt ppx: lovenox diet: as tolerated gi ppx: ppi Dispo: on abx, bipap, breaks as tolerated. hold in icu. Clinical Quality Measures Admission Status Admission Dx KANG HUMPHREY DO Oct 14, 2022 06:27
[2022-10-14] MEDS: methylPREDNISolone 40 MG/ML (Solu-MEDROL) VIAL IV SCH ×4 (06:30→23:21)
[2022-10-14 06:48] VITALS: BP 135/68
--- NOTE | 2022-10-14 07:58 | Diagnostic Imaging Report ---
INDICATION: Pneumonia AP view of the chest is obtained with comparison made to study of one day earlier. Overall heart size and pulmonary vascularity are within normal limits. There is mild air trapping. Mild focal density seen along the left heart border which may represent atelectasis or scarring. No lobar consolidation, pneumothorax or significant pleural fluid is seen. Surgical clips are seen in both axillary regions. IMPRESSION: Stable chronic findings in the lungs without acute abnormality detected. Dictated by: Dictated on workstation # [id number]
[2022-10-14] MEDS: PANTOPRAZOLE 40 MG (PROTONIX) TAB PO SCH (08:15)
[2022-10-14] MEDS: LORATADINE (CLARITIN) 10 MG TAB PO SCH (08:15)
[2022-10-14] MEDS: DOCUSATE SODIUM 100 MG (COLACE) CAP PO SCH ×2 (08:19→21:10)
[2022-10-14] MEDS: SENNOSIDES 8.6 MG (SENOKOT) TAB PO SCH ×2 (08:19→21:10)
--- NOTE | 2022-10-14 08:55 | Tele-ICU Progress Note ---
Subjective Date Seen by a Provider: Oct 14, 2022 Time Seen by a Provider: 08:54 Subjective/Events-last exam (Tele-ICU Physician , Progress Note ) Service provided via interactive audio and video telecommunications E-CARE system to a patient admitted to ICU bed in [facility]. Patient is seen today due to persistent need of ICU care Available chart/ vitals / labs / Images reviewed Video assessment done using teleICU camera, rest of exam as per RN Discussed with RN Events overnight : on bipap last night , tolerates well with ativan x! Afebrile hemodynamically stable Respiratory - 6L I/O = even Drips: Pressors- no Hospital course: (.) Admitted a 61 y/o with acute COPD exacerbation. BiPap started A/P Acure resp failure with AECOPD- -on bipap last night , tolerates well with ativan x1 30 % -NC 6 L - NIPPV prn - monitor AECOPD - steroids IV - nebs LRTI - empiric anx started z max , cefepime 10/12 COPD with chronic hypoxic and mild chronic hypercarbic resp failure -home o2 4 L IDDM - ISS , monitor on steroids Anemia - suspected delutional Lines : peripg , (Central Line Necessity Reviewed) [place]: void - OG: Nutrition: po Analgesia: Anxiety/ delirium VTE Prophylaxis: rosanne 40 Stress Ulcer Prophylaxis: ppi Plans in collaboration with bedside consultants and IM MDs. Discussed with RN to reach out if any questions or concerns Case and care daily discussed on multidisciplinary rounds ( RN, PharmD, Tap Dancer , Respiratory Therapy, yarn worker ) A total of 24 minutes of critical care time was devoted to this patient today, required to treat and/or prevent further deterioration of critical care condition ( as above ) . I am remotely monitoring this patient from another state. I am unable to do the bedside exam, and history/physical and pertinent information is taken from other notes in the computer and bedside staff. Sepsis Event Evaluation Height, Weight, BMI Height: 5'3.00" Weight: 139lbs. 0.0oz. 63.156104lw; 26.04 BMI Method:Stated Focused Exam Lactate Level 10/12/22 19:15: Lactic Acid Level 1.99 Time of Focused Exam: 20:30 Exam Exam Patient acknowledged, consented, and participated in this virtual visit which was conducted using real time audio/video Vital Signs Date Time Temp Pulse Resp B/P (MAP) Pulse Ox O2 Delivery O2 Flow Rate FiO2 10/14/22 08:00 112 29 178/86 (105) 97 Nasal Cannula 6.00 10/14/22 08:00 95 NIV Bilevel 30 10/14/22 07:44 36.4 10/14/22 07:30 94 Nasal Cannula 6.00 10/14/22 07:00 98 164/81 (108) 95 NIV Bilevel 30.00 10/14/22 07:00 96 10/14/22 06:48 88 21 96 30.00 10/14/22 06:00 75 135/68 (90) 96 NIV Bilevel 30.00 10/14/22 05:00 93 22 148/77 (100) 94 NIV Bilevel 30.00 10/14/22 04:00 95 NIV Bilevel 30 10/14/22 04:00 74 22 112/59 (76) 94 NIV Bilevel 30.00 10/14/22 04:00 36.3 10/14/22 03:00 76 24 117/74 (88) 96 NIV Bilevel 30.00 10/14/22 02:39 78 17 95 30.00 10/14/22 02:00 79 24 132/68 (89) 93 NIV Bilevel 30.00 10/14/22 01:00 79 19 117/46 (69) 94 NIV Bilevel 30.00 10/14/22 01:00 84 10/14/22 00:00 36.2 NIV Bilevel 30.00 10/14/22 00:00 94 NIV Bilevel 30 10/14/22 00:00 87 32 100/58 (72) 95 NIV Bilevel 30.00 10/13/22 23:00 89 23 88/49 (62) 95 NIV Bilevel 30.00 10/13/22 22:20 96 20 95 30.00 10/13/22 22:00 108 22 90/67 (75) 96 NIV Bilevel 30.00 10/13/22 21:00 96 24 103/53 (70) 94 NIV Bilevel 30.00 10/13/22 20:00 111 25 117/65 (82) 94 NIV Bilevel 30.00 10/13/22 20:00 94 NIV Bilevel 30 10/13/22 19:49 37.0 10/13/22 19:09 94 Nasal Cannula 5.00 10/13/22 19:07 94 Nasal Cannula 5.00 10/13/22 19:00 106 10/13/22 19:00 103 21 124/68 (86) 96 NIV Bilevel 30.00 10/13/22 18:00 112 23 105/64 (78) 94 NIV Bilevel 30.00 10/13/22 17:00 101 23 127/64 (85) 95 NIV Bilevel 30.00 10/13/22 16:13 36.2 NIV Bilevel 30.00 10/13/22 16:09 96 NIV Bilevel 30 10/13/22 16:00 103 24 105/55 (72) 94 Nasal Cannula 6.00 10/13/22 15:00 110 26 113/56 (75) 93 Nasal Cannula 6.00 10/13/22 14:50 112 26 97 30.00 10/13/22 14:00 93 24 131/66 (87) 96 Nasal Cannula 6.00 10/13/22 13:00 90 23 112/54 (73) 95 Nasal Cannula 6.00 10/13/22 12:45 94 10/13/22 12:00 108 19 124/57 (79) 96 Nasal Cannula 6.00 10/13/22 12:00 36.0 10/13/22 12:00 96 Nasal Cannula 6.00 10/13/22 11:56 Nasal Cannula 6.00 10/13/22 11:30 95 Nasal Cannula 6.00 10/13/22 11:00 82 23 110/54 (72) 95 NIV Bilevel 30.00 10/13/22 10:29 80 22 95 30.00 10/13/22 10:00 83 35 117/63 (81) 95 NIV Bilevel 30.00 10/13/22 09:15 NIV Bilevel 30.00 10/13/22 09:00 100 21 119/57 (77) 94 Nasal Cannula 6.00 I & O 10/14/22 07:00 Intake Total 1415 ml Output Total 1750 ml Balance -335 ml Height & Weight Height: 5'3.00" Weight: 139lbs. 0.0oz. 63.119311dn; 26.04 BMI Method:Stated General Appearance: No Apparent Distress, WD/WN, Chronically ill HEENT: PERRL/EOMI, Moist Mucous Membranes; No Scleral Icterus (L), No Scleral Icterus (R) Neck: Non Tender, Supple; No JVD Respiratory: Crackles, Decreased Breath Sounds, Wheezing Cardiovascular: Regular Rate, Rhythm, No JVD, No Murmur, Normal Peripheral Pulses Capillary Refill: Less Than 3 Seconds Gastrointestinal: non tender, soft Extremity: Normal Capillary Refill, Normal Inspection, Non Tender, No Pedal Edema Neurologic/Psychiatric: Alert, Oriented x3, Normal Mood/Affect Skin: Normal Color, Warm/Dry Results Lab Laboratory Tests 10/12/22 19:15 10/13/22 04:27 10/14/22 04:44 Assessment/Plan Assessment/Plan 1 ZULEMA FUNK MD Oct 14, 2022 08:54
[2022-10-14] MEDS: LORazepam 0.5 MG (ATIVAN) TABLET PO PRN ×3 (09:21→22:10)
[2022-10-14] MEDS ORDERED: ATOR40TA70 PO (09:31)
[2022-10-14] MEDS ORDERED: ALEN70TA80 PO (09:32)
[2022-10-14] MEDS: RT--FLUTICASONE/SALMETEROL 113-14 (AIRDUO RespiCLICK) IH SCH ×2 (10:39→18:34)
[2022-10-14 10:40] VITALS: BP 127/61
[2022-10-14] MEDS: NICOTINE 21 MG (NICODERM) PATCH TD SCH (11:54)
[2022-10-14 14:03] VITALS: BP 144/64
[2022-10-14 18:36] VITALS: BP 157/71
[2022-10-14] MEDS: MONTELUKAST 10 MG (SINGULAIR) TAB PO SCH (21:10)
[2022-10-14] MEDS: AZITHROMYCIN INJECTION 250 MG in NS (IVPB) 250 ML IV SCH (21:12)
[2022-10-14] MEDS: ENOXAPARIN 40 MG/0.4 ML (LOVENOX) SYR SC SCH (21:13)
[2022-10-14 22:58] VITALS: BP 155/79
[2022-10-15] VITALS (8 sets, daily range): BP systolic 127–175; BP diastolic 59–90
[2022-10-15] MEDS: RT-ALBUTEROL/IPRATROPIUM 3 ML (DUONEB) VIAL INH SCH ×6 (02:21→22:06)
[2022-10-15] MEDS: CEFEPIME 1,000 MG/NS 50 ML IVPB IV SCH ×8 (03:11→20:51)
[2022-10-15 04:16] LABS: BASOPHILS % (AUTO) 0 % (0-10); EOSINOPHILS % (AUTO) 0 % (0-10); HEMATOCRIT 29 % (35-52); HEMOGLOBIN 9.2 g/dL (11.5-16.0); LYMPHOCYTES # (AUTO) 1.2 10^3/uL (1.0-4.0); LYMPHOCYTES % (AUTO) 7 % (12-44); MEAN CORPUSCULAR HEMOGLOBIN 26 pg (25-34); MEAN CORPUSCULAR HGB CONC 31 g/dL (32-36); MEAN CORPUSCULAR VOLUME 83 fL (80-99); MEAN PLATELET VOLUME 11.8 fL (9.0-12.2); MONOCYTES # (AUTO) 0.7 10^3/uL (0.0-1.0); MONOCYTES % (AUTO) 4 % (0-12); NEUTROPHILS # (AUTO) 14.8 10^3/uL (1.8-7.8); NEUTROPHILS % (AUTO) 84 % (42-75); PLATELET COUNT 230 10^3/uL (130-400); WHITE BLOOD COUNT 17.5 10^3/uL (4.3-11.0)
[2022-10-15 04:35] LABS: ALBUMIN 3.8 GM/DL (3.2-4.5)
[2022-10-15 04:36] LABS: CALCIUM 8.9 MG/DL (8.5-10.1)
[2022-10-15 04:37] LABS: TOTAL PROTEIN 6.3 GM/DL (6.4-8.2)
[2022-10-15 04:39] LABS: BILIRUBIN,TOTAL 0.3 MG/DL (0.1-1.0)
[2022-10-15 04:40] LABS: PHOSPHORUS 2.4 MG/DL (2.3-4.7)
[2022-10-15 04:41] LABS: CREATININE SERUM 0.66 MG/DL (0.60-1.30)
--- NOTE | 2022-10-15 05:36 | Progress Note ---
Subjective Date Seen by a Provider: Oct 15, 2022 Time Seen by a Provider: 11:00 Subjective/Events-last exam Much improved BiPAP is used on occasion No pain reported Moving to 4th Lungs improved Review of Systems General: Fatigue, Malaise Focused Exam Lactate Level 10/12/22 19:15: Lactic Acid Level 1.99 Time of Focused Exam: 20:30 Objective Exam Last Set of Vital Signs Vital Signs Date Time Temp Pulse Resp B/P (MAP) Pulse Ox O2 Delivery O2 Flow Rate FiO2 10/15/22 05:00 82 21 152/70 (97) 97 Nasal Cannula 6.00 10/15/22 04:00 36.3 10/14/22 23:30 30 Capillary Refill : Less Than 3 Seconds I&O Intake and Output 10/15/22 00:00 Intake Total 2810 ml Output Total 2450 ml Balance 360 ml Intake Oral 1410 ml IV Total 1400 ml Output Urine Total 2450 ml General: Alert, Oriented X3, Cooperative, No Acute Distress Lungs: Clear to Auscultation, Normal Air Movement Heart: Regular Rate, Normal S1, Normal S2, No Murmurs Psych/Mental Status: Mental Status NL, Mood NL Results Lab Laboratory Tests 10/14/22 10:16: Glucometer 338H 10/14/22 15:57: Glucometer 237H 10/14/22 21:03: Glucometer 283H 10/15/22 03:50: White Blood Count 17.5H, Red Blood Count 3.56L, Hemoglobin 9.2L, Hematocrit 29L, Mean Corpuscular Volume 83, Mean Corpuscular Hemoglobin 26, Mean Corpuscular Hemoglobin Concent 31L, Red Cell Distribution Width 14.1, Platelet Count 230, Mean Platelet Volume 11.8, Immature Granulocyte % (Auto) 5, Neutrophils (%) (Auto) 84H, Lymphocytes (%) (Auto) 7L, Monocytes (%) (Auto) 4, Eosinophils (%) (Auto) 0, Basophils (%) (Auto) 0, Neutrophils # (Auto) 14.8H, Lymphocytes # (Auto) 1.2, Monocytes # (Auto) 0.7, Eosinophils # (Auto) 0.0, Basophils # (Auto) 0.0, Immature Granulocyte # (Auto) 0.8H, Sodium Level 140, Potassium Level 4.0, Chloride Level 106, Carbon Dioxide Level 24, Anion Gap 10, Blood Urea Nitrogen 19H, Creatinine 0.66, Estimat Glomerular Filtration Rate 99, BUN/Creatinine Ratio 29, Glucose Level 237H, Calcium Level 8.9, Corrected Calcium 9.1, Phosphorus Level 2.4, Magnesium Level 2.0, Total Bilirubin 0.3, Aspartate Amino Transf (AST/SGOT) 12, Alanine Aminotransferase (ALT/SGPT) 18, Alkaline Phosphatase 66, Total Protein 6.3L, Albumin 3.8 Microbiology 10/13/22 Urine Culture - Final, Complete NO GROWTH 10/12/22 MRSA Screen - Final, Complete MRSA not isolated 10/12/22 Blood Culture - Preliminary, Resulted No growth Assessment/Plan Assessment/Plan Assess & Plan/Chief Complaint Acute on CHRF Pneumonia -Repeat cxr with consolidation -wbc count elevated -mucus production increased -hx copd on 4L o2 -on cefepime, azithromycin -duonebs q4 -methylprednisone, montelukast -bipap 30%, breaks as tolerated IDDM -SSI HTN -hold home med for now Dvt ppx: lovenox diet: as tolerated gi ppx: ppi Dispo: on abx, bipap, breaks as tolerated. move to 4th Clinical Quality Measures Admission Status Admission Dx KANG HUMPHREY DO Oct 15, 2022 05:35
[2022-10-15] MEDS: POTASSIUM CL 10MEQ/50ML IVPB 50 ML IV SCH (05:47)
[2022-10-15] MEDS: KCL 20 MEQ TAB (K-DUR) PO SCH (05:47)
[2022-10-15] MEDS: MAGNESIUM 1 GM/100 ML IVPB 100 ML IV SCH (05:47)
[2022-10-15] MEDS: methylPREDNISolone 40 MG/ML (Solu-MEDROL) VIAL IV SCH ×2 (05:54→20:09)
[2022-10-15] MEDS: inSUlin ASPART (NovoLOG) 1 UNIT/0.01 ML (CHARGE PER UNIT) SC SCH ×4 (06:22→20:15)
[2022-10-15 07:24] LABS: ABG BASE EXCESS 6.4 MMOL/L (-2.5-2.5); ABG OXYGEN SATURATION 98 % (94-100); ABG PCO2 48 MMHG (35-45); ABG PH 7.42 (7.37-7.43); ABG PO2 86 MMHG (79-93); ABG TCO2 32.5 MMOL/L (21.0-31.0)
[2022-10-15 07:25] LABS: INSPIRED O2 100%; PATIENT TEMP 36.2
[2022-10-15] MEDS: RT--FLUTICASONE/SALMETEROL 113-14 (AIRDUO RespiCLICK) IH SCH ×2 (07:25→22:06)
--- NOTE | 2022-10-15 08:05 | Diagnostic Imaging Report ---
INDICATION: Pneumonia, follow-up. Time of Exam: 4:41 AM Correlation is made with prior chest one day earlier. Heart size is stable. Density in the left base is stable. No infiltrates are seen. There is no effusion or pneumothorax. Pulmonary vascularity is unremarkable. IMPRESSION: Stable chest. No acute feature is detected. Dictated by: Dictated on workstation # [id number]
[2022-10-15] MEDS: LORATADINE (CLARITIN) 10 MG TAB PO SCH (08:18)
[2022-10-15] MEDS: PANTOPRAZOLE 40 MG (PROTONIX) TAB PO SCH (08:18)
[2022-10-15] MEDS: LORazepam 0.5 MG (ATIVAN) TABLET PO PRN ×2 (08:18→21:25)
[2022-10-15] MEDS: DOCUSATE SODIUM 100 MG (COLACE) CAP PO SCH ×2 (08:19→20:09)
[2022-10-15] MEDS: SENNOSIDES 8.6 MG (SENOKOT) TAB PO SCH ×2 (08:19→20:09)
[2022-10-15] MEDS: NICOTINE PATCH REMOVAL TP SCH (08:19)
[2022-10-15] MEDS: NICOTINE 21 MG (NICODERM) PATCH TD SCH (08:20)
--- NOTE | 2022-10-15 09:45 | Tele-ICU Progress Note ---
Subjective Date Seen by a Provider: Oct 15, 2022 Time Seen by a Provider: 09:34 Subjective/Events-last exam (Tele-ICU Physician , Progress Note ) Service provided via interactive audio and video telecommunications E-CARE system to a patient admitted to ICU bed in [facility]. Patient is seen today due to persistent need of ICU care Available chart/ vitals / labs / Images reviewed Video assessment done using teleICU camera, rest of exam as per RN She is a 61 yrs old female with history of copd on home O2 4l n/c. HTN, IDDM presented with cough, dyspnea of few days duration and found to have acute and chr. hypercarbic respiratory failure. she is put on bipap and treated with antibiotics ,steroids and broncho dilators. she is feeling much better and able to tolerate o2 via n/c. all cultures are negative so far. Impression 1. Acute and chr. hyper carbic respiratory failure. 2. copd exacerbation improving. 3.acute bronchitis clinically improving. 4 Type DM on SSI 5. HTN stable. Recommendations. 1. Continue antibiotics per primary care. 2. May wean iv steroids. 3.Continue Bronchodilator therapy 4. Dvt and ulcer prophylaxis Coordination of care with primary care physician and the consultants at bedside. I am remotely monitoring this patient from Tele icu station in [place]. I am unable to do the bedside exam, and history/physical and pertinent information is taken from other notes in the computer and bedside staff. Certain portions of this document may have been dictated utilizing voice recognition technology such as [employer]. Inherent to this technology, typographical and grammatical errors may exist. As much as I am diligent to identify and correct to these mistakes, some errors may remain in the document. Critical care time due to gated to this patient today is- 25 minutes-- Sepsis Event Evaluation Height, Weight, BMI Height: 5'3.00" Weight: 139lbs. 0.0oz. 63.501542sq; 26.04 BMI Method:Stated Focused Exam Lactate Level 10/12/22 19:15: Lactic Acid Level 1.99 Time of Focused Exam: 20:30 Exam Exam Patient acknowledged, consented, and participated in this virtual visit which was conducted using real time audio/video Vital Signs Date Time Temp Pulse Resp B/P (MAP) Pulse Ox O2 Delivery O2 Flow Rate FiO2 3/25/23 08:30 95 NIV Bilevel 30.00 10/15/22 08:00 Nasal Cannula 6.00 10/15/22 08:00 106 29 194/93 (126) 91 Nasal Cannula 4.00 10/15/22 07:47 36.3 10/15/22 07:34 94 Nasal Cannula 4.00 10/15/22 07:26 95 Nasal Cannula 5.00 10/15/22 07:00 79 18 159/78 (103) 95 Nasal Cannula 4.00 10/15/22 07:00 82 10/15/22 06:00 74 20 156/86 (106) 97 10/15/22 05:00 82 21 152/70 (97) 97 Nasal Cannula 6.00 10/15/22 04:00 Nasal Cannula 6.00 10/15/22 04:00 36.3 83 21 158/74 (94) 97 Nasal Cannula 6.00 10/15/22 03:20 Nasal Cannula 6.00 10/15/22 03:00 75 18 128/61 (83) 95 10/15/22 02:21 74 20 95 30.00 10/15/22 02:00 72 21 127/59 (80) 93 NIV Bilevel 30.00 10/15/22 01:00 84 22 148/62 (88) 94 10/15/22 01:00 86 10/15/22 00:00 36.4 80 25 130/61 (83) 94 NIV Bilevel 30.00 10/14/22 23:30 NIV Bilevel 30 10/14/22 23:00 89 26 159/78 (107) 93 NIV Bilevel 30.00 10/14/22 22:58 92 23 97 30.00 10/14/22 22:00 106 28 155/79 (104) 92 NIV Bilevel 30.00 10/14/22 22:00 104 32 155/79 (103) 95 Nasal Cannula 6.00 10/14/22 21:00 92 23 124/70 (88) 98 NIV Bilevel 30.00 10/14/22 21:00 98 10/14/22 20:15 Nasal Cannula 6.00 10/14/22 20:15 Nasal Cannula 6.00 10/14/22 20:00 85 23 136/63 (85) 95 NIV Bilevel 30.00 10/14/22 19:15 NIV Bilevel 30 10/14/22 19:15 36.3 10/14/22 19:00 100 10/14/22 19:00 101 22 138/69 (92) 98 NIV Bilevel 30.00 10/14/22 19:00 101 22 138/69 (88) 98 NIV Bilevel 30.00 10/14/22 18:36 96 29 97 30.00 10/14/22 18:34 Nasal Cannula 5.00 10/14/22 18:00 99 151/71 (101) 100 NIV Bilevel 30.00 10/14/22 17:00 95 147/72 (93) 94 NIV Bilevel 30.00 10/14/22 16:00 106 21 144/91 (102) 96 NIV Bilevel 30.00 10/14/22 16:00 96 Nasal Cannula 6.00 10/14/22 15:00 93 113/48 (66) 98 NIV Bilevel 30.00 10/14/22 14:03 94 21 96 30.00 10/14/22 14:00 87 22 144/64 (89) 97 NIV Bilevel 30.00 10/14/22 13:00 116 10/14/22 13:00 109 24 147/73 (98) 98 NIV Bilevel 30.00 10/14/22 12:00 106 20 144/73 (87) 96 NIV Bilevel 30.00 10/14/22 12:00 95 NIV Bilevel 30 10/14/22 11:49 36.5 10/14/22 11:00 92 22 139/64 (94) 97 NIV Bilevel 30.00 10/14/22 10:40 91 22 96 30.00 10/14/22 10:23 NIV Bilevel 30.00 10/14/22 10:00 93 28 127/61 (85) Nasal Cannula 6.00 I & O 10/15/22 07:00 Intake Total 3000 ml Output Total 2600 ml Balance 400 ml Height & Weight Height: 5'3.00" Weight: 139lbs. 0.0oz. 63.317957rg; 26.04 BMI Method:Stated General Appearance: No Apparent Distress, WD/WN, Chronically ill HEENT: PERRL/EOMI, Moist Mucous Membranes; No Scleral Icterus (L), No Scleral Icterus (R) Neck: Non Tender, Supple; No JVD Respiratory: Crackles, Decreased Breath Sounds, Wheezing Cardiovascular: Regular Rate, Rhythm, No JVD, No Murmur, Normal Peripheral Pulses Capillary Refill: Less Than 3 Seconds Gastrointestinal: non tender, soft Extremity: Normal Capillary Refill, Normal Inspection, Non Tender, No Pedal Edema Neurologic/Psychiatric: Alert, Oriented x3, Normal Mood/Affect Skin: Normal Color, Warm/Dry Other comments pe per rn Results Lab Laboratory Tests 10/14/22 04:44 10/15/22 03:50 Assessment/Plan Assessment/Plan ABOVE Critical Care: Critically Ill Patient Time spent with patient (mins): 25 JOSE MARMOLEJO MD Oct 15, 2022 09:45
[2022-10-15] MEDS ORDERED: POLYETHYLENE GLYCOL OP PRN (11:15)
[2022-10-15] MEDS ORDERED: ARTIFICAL TEARS 0.4 ML UNIT DOSE (REFRESH PLUS) OU PRN (11:45)
[2022-10-15] MEDS: cloNIDine 0.1 MG (CATAPRES) TAB PO PRN ×2 (13:53→17:53)
[2022-10-15] MEDS: MONTELUKAST 10 MG (SINGULAIR) TAB PO SCH (20:09)
[2022-10-15] MEDS: SERTRALINE 50 MG (ZOLOFT) TABLET PO SCH (20:09)
[2022-10-15] MEDS: ENOXAPARIN 40 MG/0.4 ML (LOVENOX) SYR SC SCH (20:12)
[2022-10-15] MEDS: SERTRALINE 100 MG (ZOLOFT) TAB PO SCH (20:15)
[2022-10-15] MEDS: AZITHROMYCIN INJECTION 250 MG in NS (IVPB) 250 ML IV SCH (20:21)
[2022-10-15] MEDS ORDERED: INSULIN GLARGINE HUM REC ANLOG 35 UNIT SQ SCH (21:00)
[2022-10-15] MEDS ORDERED: ADVAIR HFA 115/21 MCG INHALER 8 GM IH SCH (21:00)
[2022-10-15] MEDS ORDERED: [UNRECOGNIZED DRUG - OTHER] SQ SCH (21:00)
[2022-10-16] VITALS (7 sets, daily range): BP systolic 145–189; BP diastolic 64–82
[2022-10-16] MEDS: RT-ALBUTEROL/IPRATROPIUM 3 ML (DUONEB) VIAL INH SCH ×6 (02:35→22:05)
[2022-10-16] MEDS: CEFEPIME 1,000 MG/NS 50 ML IVPB IV SCH ×8 (03:38→20:38)
[2022-10-16 05:39] LABS: BASOPHILS % (AUTO) 0 % (0-10); EOSINOPHILS % (AUTO) 0 % (0-10); HEMATOCRIT 29 % (35-52); HEMOGLOBIN 9.3 g/dL (11.5-16.0); LYMPHOCYTES # (AUTO) 1.8 10^3/uL (1.0-4.0); LYMPHOCYTES % (AUTO) 13 % (12-44); MEAN CORPUSCULAR HEMOGLOBIN 26 pg (25-34); MEAN CORPUSCULAR HGB CONC 32 g/dL (32-36); MEAN CORPUSCULAR VOLUME 82 fL (80-99); MEAN PLATELET VOLUME 11.7 fL (9.0-12.2); MONOCYTES # (AUTO) 0.8 10^3/uL (0.0-1.0); MONOCYTES % (AUTO) 6 % (0-12); NEUTROPHILS # (AUTO) 10.4 10^3/uL (1.8-7.8); NEUTROPHILS % (AUTO) 78 % (42-75); PLATELET COUNT 218 10^3/uL (130-400); WHITE BLOOD COUNT 13.4 10^3/uL (4.3-11.0)
--- NOTE | 2022-10-16 05:39 | Progress Note - Hospitalist ---
Subjective HPI/CC On Admission Date Seen by Provider: Oct 16, 2022 Time Seen by Provider: 09:00 Subjective/Events-last exam Improved status Less wheezing Will ambulate today NO cough Review of Systems General: Fatigue, Malaise Focused Exam Time of Focused Exam: 20:30 Objective Exam Vital Signs Vital Signs Date Time Temp Pulse Resp B/P (MAP) Pulse Ox O2 Delivery O2 Flow Rate FiO2 10/16/22 11:49 37.1 101 24 178/64 (102) 94 Nasal Cannula 5.00 10/14/22 23:30 30 Capillary Refill : Less Than 3 Seconds General Appearance: No Apparent Distress, WD/WN, Chronically ill Respiratory: No Accessory Muscle Use, No Respiratory Distress, Decreased Breath Sounds Cardiovascular: Regular Rate, Rhythm Neurologic/Psychiatric: Alert, Oriented x3 Results/Procedures Lab Laboratory Tests 10/16/22 05:13 Patient resulted labs reviewed. Assessment/Plan Assessment and Plan Assess & Plan/Chief Complaint Acute on CHRF Pneumonia -Repeat cxr with consolidation -wbc count nl -mucus production increased -hx copd on 4L o2 -on cefepime, azithromycin -duonebs q4 -methylprednisone, montelukast -bipap 30%, breaks as tolerated IDDM -SSI HTN -hold home med for now Dvt ppx: lovenox diet: as tolerated gi ppx: ppi Dispo: on abx, bipap, breaks as tolerated. move to 4th Critical Care Critically Ill Patient Clinical Quality Measures Admission Status Admission Dx KANG HUMPHREY Oct 16, 2022 05:39
[2022-10-16] MEDS: CYANOCOBALAMIN 1,000 MCG (VITAMIN B-12) TABLET PO SCH (05:43)
[2022-10-16 05:53] LABS: ALBUMIN 3.7 GM/DL (3.2-4.5); POTASSIUM 3.9 MMOL/L (3.6-5.0)
[2022-10-16 05:54] LABS: CALCIUM 8.8 MG/DL (8.5-10.1)
[2022-10-16 05:56] LABS: TOTAL PROTEIN 6.2 GM/DL (6.4-8.2)
[2022-10-16 05:57] LABS: BILIRUBIN,TOTAL 0.3 MG/DL (0.1-1.0)
[2022-10-16] MEDS: inSUlin ASPART (NovoLOG) 1 UNIT/0.01 ML (CHARGE PER UNIT) SC SCH ×4 (05:58→20:18)
[2022-10-16 05:59] LABS: CREATININE SERUM 0.61 MG/DL (0.60-1.30)
[2022-10-16] MEDS: KCL 20 MEQ TAB (K-DUR) PO SCH (06:00)
[2022-10-16] MEDS: RT--FLUTICASONE/SALMETEROL 113-14 (AIRDUO RespiCLICK) IH SCH ×2 (07:26→22:05)
[2022-10-16] MEDS: UMECLIDINIUM BROMIDE (INCRUSE ELLIPTA) 7'S IH SCH (07:38)
[2022-10-16] MEDS ORDERED: PANTOPRAZOLE 40 MG (PROTONIX) TAB PO SCH (09:00)
[2022-10-16] MEDS ORDERED: KCL 20 MEQ TAB (K-DUR) PO ONE (09:00)
[2022-10-16] MEDS ORDERED: [UNRECOGNIZED DRUG - OTHER] PO SCH (09:00)
[2022-10-16] MEDS ORDERED: NON-FORMULARY MEDICATION 1 EA EA (Tiotropium Bromide (Spiriva Respimat 2.5MCG/ACTUATION) 2 IH SCH (09:00)
[2022-10-16] MEDS ORDERED: MONTELUKAST 10 MG (SINGULAIR) TAB PO SCH (09:00)
[2022-10-16] MEDS ORDERED: CYANOCOBALAMIN 5000 MCG PO SCH (09:00)
[2022-10-16] MEDS: lisINopril 5 MG (PRINIVIL) TABLET PO SCH (09:07)
[2022-10-16] MEDS: PANTOPRAZOLE 40 MG (PROTONIX) TAB PO SCH (09:07)
[2022-10-16] MEDS: LORATADINE (CLARITIN) 10 MG TAB PO SCH (09:07)
[2022-10-16] MEDS: DOCUSATE SODIUM 100 MG (COLACE) CAP PO SCH ×2 (09:08→20:38)
[2022-10-16] MEDS: SENNOSIDES 8.6 MG (SENOKOT) TAB PO SCH ×2 (09:08→20:38)
[2022-10-16] MEDS: NICOTINE PATCH REMOVAL TP SCH (09:08)
[2022-10-16] MEDS: methylPREDNISolone 40 MG/ML (Solu-MEDROL) VIAL IV SCH ×2 (09:08→20:35)
[2022-10-16] MEDS: NICOTINE 21 MG (NICODERM) PATCH TD SCH (09:09)
[2022-10-16] MEDS: LORazepam 0.5 MG (ATIVAN) TABLET PO PRN (10:53)
[2022-10-16] MEDS: cloNIDine 0.1 MG (CATAPRES) TAB PO PRN (15:48)
[2022-10-16] MEDS: ENOXAPARIN 40 MG/0.4 ML (LOVENOX) SYR SC SCH (20:35)
[2022-10-16] MEDS: SERTRALINE 100 MG (ZOLOFT) TAB PO SCH (20:35)
[2022-10-16] MEDS: SERTRALINE 50 MG (ZOLOFT) TABLET PO SCH (20:35)
[2022-10-16] MEDS: MONTELUKAST 10 MG (SINGULAIR) TAB PO SCH (20:38)
[2022-10-17 04:00] VITALS: BP 107/76
[2022-10-17] MEDS: CEFEPIME 1,000 MG/NS 50 ML IVPB IV SCH ×6 (04:31→16:53)
[2022-10-17] MEDS: RT-ALBUTEROL/IPRATROPIUM 3 ML (DUONEB) VIAL INH SCH ×4 (04:36→14:33)
[2022-10-17 05:12] LABS: BASOPHILS % (AUTO) 0 % (0-10); EOSINOPHILS % (AUTO) 0 % (0-10); HEMATOCRIT 32 % (35-52); HEMOGLOBIN 10.3 g/dL (11.5-16.0); LYMPHOCYTES # (AUTO) 1.5 10^3/uL (1.0-4.0); LYMPHOCYTES % (AUTO) 14 % (12-44); MEAN CORPUSCULAR HEMOGLOBIN 26 pg (25-34); MEAN CORPUSCULAR HGB CONC 33 g/dL (32-36); MEAN CORPUSCULAR VOLUME 81 fL (80-99); MEAN PLATELET VOLUME 11.4 fL (9.0-12.2); MONOCYTES # (AUTO) 0.8 10^3/uL (0.0-1.0); MONOCYTES % (AUTO) 7 % (0-12); NEUTROPHILS # (AUTO) 8.9 10^3/uL (1.8-7.8); NEUTROPHILS % (AUTO) 78 % (42-75); PLATELET COUNT 213 10^3/uL (130-400); WHITE BLOOD COUNT 11.4 10^3/uL (4.3-11.0)
[2022-10-17 05:22] LABS: ALBUMIN 3.9 GM/DL (3.2-4.5); POTASSIUM 4.4 MMOL/L (3.6-5.0)
[2022-10-17 05:23] LABS: CALCIUM 8.8 MG/DL (8.5-10.1)
[2022-10-17 05:25] LABS: TOTAL PROTEIN 6.5 GM/DL (6.4-8.2)
[2022-10-17 05:26] LABS: BILIRUBIN,TOTAL 0.3 MG/DL (0.1-1.0)
[2022-10-17 05:28] LABS: CREATININE SERUM 0.69 MG/DL (0.60-1.30)
[2022-10-17] MEDS: KCL 20 MEQ TAB (K-DUR) PO SCH (05:29)
[2022-10-17 05:31] LABS: MAGNESIUM 2.1 MG/DL (1.6-2.4)
[2022-10-17] MEDS: inSUlin ASPART (NovoLOG) 1 UNIT/0.01 ML (CHARGE PER UNIT) SC SCH ×3 (06:15→16:56)
[2022-10-17] MEDS: CYANOCOBALAMIN 1,000 MCG (VITAMIN B-12) TABLET PO SCH (06:15)
[2022-10-17] MEDS: RT--FLUTICASONE/SALMETEROL 113-14 (AIRDUO RespiCLICK) IH SCH (07:23)
[2022-10-17] MEDS: UMECLIDINIUM BROMIDE (INCRUSE ELLIPTA) 7'S IH SCH (07:24)
[2022-10-17 08:03] VITALS: BP 170/77
[2022-10-17] MEDS: NICOTINE PATCH REMOVAL TP SCH (08:32)
[2022-10-17] MEDS: methylPREDNISolone 40 MG/ML (Solu-MEDROL) VIAL IV SCH (08:33)
[2022-10-17] MEDS: PANTOPRAZOLE 40 MG (PROTONIX) TAB PO SCH (08:33)
[2022-10-17] MEDS: LORATADINE (CLARITIN) 10 MG TAB PO SCH (08:33)
[2022-10-17] MEDS: SENNOSIDES 8.6 MG (SENOKOT) TAB PO SCH (08:33)
[2022-10-17] MEDS: lisINopril 5 MG (PRINIVIL) TABLET PO SCH (08:33)
[2022-10-17] MEDS: NICOTINE 21 MG (NICODERM) PATCH TD SCH ×2 (08:33→08:41)
[2022-10-17] MEDS: DOCUSATE SODIUM 100 MG (COLACE) CAP PO SCH (08:33)
[2022-10-17] MEDS ORDERED: CEFD300C3 PO (10:07)
[2022-10-17] MEDS ORDERED: PRED10TA22 PO (10:07)
[2022-10-17] MEDS ORDERED: LORA10TA7 PO (10:07)
--- NOTE | 2022-10-17 10:15 | Discharge Summary ---
Discharge Summary Hospital Course Was the Problem List Reviewed?: Yes Problems/Dx: (1) COPD with acute exacerbation Status: Acute (2) Acute and chronic respiratory failure Status: Acute Hospital Course Date of Admission: Oct 12, 2022 at 20:56 Admission Diagnosis : [facility] Date of [facility]: 10/17/22 Discharge Diagnosis: [ ] Hospital Course: Hospital Course 61 year old female who was hospitalized at [facility] from 10/12-10/17 for acute on chronic hypoxic respiratory failure. She uses 4L O2 chronically for COPD but presented to the ED 10/12 for increased SOB and productive cough despite home oxygen and breathing treatments. Her ABG in the ED was consistent with Chronic CO2 retention for which she was placed on BiPAP and admitted to the ICU where she was treated with nebulizer therapy and steroids and was monitored by E-ICU as well as our medical team. She remained on the Bipap for the majority of her first two days in the hospital. CXR during her stay showed a small right pleural effusion and findings consistent with a possible Right sided pneumonia for which she received an abx course with Cefepime and azithromycin. Her Leukocytosis at it's worse was 17.5 on 10/15 and had improved to 11.4 by 10/17. Patient was stable enough to be moved to the medical floor on 10/15 and by 10/17 she was feeling back to her normal self and tolerating 4L O2 well. MINDA CONWAY Labs and Pending Lab Test: Laboratory Tests 10/16/22 10:58: Glucometer 161H 10/16/22 15:41: Glucometer 295H 10/16/22 20:15: Glucometer 160H 10/17/22 05:02: White Blood Count 11.4H, Red Blood Count 3.90, Hemoglobin 10.3L, Hematocrit 32L, Mean Corpuscular Volume 81, Mean Corpuscular Hemoglobin 26, Mean Corpuscular Hemoglobin Concent 33, Red Cell Distribution Width 13.4, Platelet Count 213, Mean Platelet Volume 11.4, Immature Granulocyte % (Auto) 2, Neutrophils (%) (Auto) 78H, Lymphocytes (%) (Auto) 14, Monocytes (%) (Auto) 7, Eosinophils (%) (Auto) 0, Basophils (%) (Auto) 0, Neutrophils # (Auto) 8.9H, Lymphocytes # (Auto) 1.5, Monocytes # (Auto) 0.8, Eosinophils # (Auto) 0.0, Basophils # (Auto) 0.0, Immature Granulocyte # (Auto) 0.2H, Sodium Level 139, Potassium Level 4.4, Chloride Level 103, Carbon Dioxide Level 26, Anion Gap 10, Blood Urea Nitrogen 17, Creatinine 0.69, Estimat Glomerular Filtration Rate 98, BUN/Creatinine Ratio 25, Glucose Level 227H, Calcium Level 8.8, Corrected Calcium 8.9, Magnesium Level 2.1, Total Bilirubin 0.3, Aspartate Amino Transf (AST/SGOT) 19, Alanine Aminotransferase (ALT/SGPT) 31, Alkaline Phosphatase 64, Total Protein 6.5, Albumin 3.9 Microbiology 10/13/22 Urine Culture - Final, Complete NO GROWTH 10/12/22 MRSA Screen - Final, Complete MRSA not isolated 10/12/22 Blood Culture - Preliminary, Resulted No growth Home Meds Active Cefdinir 300 Mg Capsule 300 Mg PO BID Prednisone 10 Mg Tab.ds.pk 10 Mg PO DAILY Take 6 tabs(60mg)daily,decrease by 1 tab(10mg)every other day. Loratadine 10 Mg Tablet 10 Mg PO DAILY Reported Alendronate Sodium 70 Mg Tablet 70 Mg PO FRI Atorvastatin Calcium 40 Mg Tablet 40 Mg PO HS Cinnamon (Cinnamon Bark) 500 Mg Capsule 1,000 Mg PO BID Sertraline HCl 50 Mg Tablet 50 Mg PO HS TAKES 100MG +50MG TO EQUAL 150MG Pantoprazole Sodium 40 Mg Tablet.dr 40 Mg PO DAILY Metformin HCl ER (Metformin HCl) 500 Mg Tab.er.24 500 Mg PO DAILY Visine Dry Eye Relief (Polyethylene Glycol 400) 1 % Drops 1 Drop OP UD PRN Vitamin B12 (Cyanocobalamin (Vitamin B-12)) 5,000 Mcg Tab.rapdis 5,000 Mcg PO DAILY Vitamin C (Ascorbic Acid) 500 Mg Capsule 500 Mg PO DAILY Spiriva Respimat 2.5MCG/ACTUATION (Tiotropium [place]) 2.5 Mcg/Actuation Mist.inhal 2 Puff IH DAILY Advair Hfa 115-21 Mcg Inhaler (Fluticasone/Salmeterol) 115 Mcg-21 Mcg/Actuation Hfa.aer.ad 2 Puff IH BID Albuterol Sulfate 2.5 Mg/3 Ml (0.083 %) Vial.neb 3 Ml NEB Q6H PRN Vitamin D3 (Cholecalciferol (Vitamin D3)) 25 Mcg (1000 Unit) Capsule 25 Mcg PO DAILY Calcium (Calcium Carbonate) 600 Mg Calcium (1500 Mg) Tablet 600 Mg PO BID Lisinopril 5 Mg Tablet 5 Mg PO DAILY Lantus Solostar (Insulin Glargine,Hum.rec.anlog) 100 Unit/Ml (3 Ml) Insuln.pen 35 Units SQ HS Montelukast Sodium 10 Mg Tablet 10 Mg PO DAILY Ventolin Hfa (Albuterol Sulfate) 90 Mcg Hfa.aer.ad 2 Puff IH Q4H PRN Sertraline HCl 100 Mg Tablet 100 Mg PO HS TAKES 100MG +50MG TO EQUAL 150MG Assessment/Pt Instructions pcp 1 week Discharge Planning: <30 minutes discharge planning Discharge Instructions Discharge Diet: No Restrictions Activity as Tolerated: Yes Discharge Physical Examination Vital Signs Vital Signs Date Time Temp Pulse Resp B/P (MAP) Pulse Ox O2 Delivery O2 Flow Rate FiO2 10/17/22 08:03 37.1 88 20 170/77 (108) 94 Nasal Cannula 3.00 10/14/22 23:30 30 General Appearance: No Apparent Distress, WD/WN, Chronically ill Respiratory: Lungs Clear, Normal Breath Sounds Allergies: Coded Allergies: No Known Drug Allergies (Unverified , 06/12/15) Discharge Summary Date of Admission Oct 12, 2022 at 20:56 Date of Discharge Discharge Date: Oct 17, 2022 Discharge Diagnosis Acute on CHRF Pneumonia -Repeat cxr with consolidation -wbc count nl -mucus production increased -hx copd on 4L o2 -on cefepime, azithromycin -duonebs q4 -methylprednisone, montelukast -bipap 30%, breaks as tolerated IDDM -SSI HTN -hold home med for now Dvt ppx: lovenox diet: as tolerated gi ppx: ppi Dispo: on abx, bipap, breaks as tolerated. move to 4th KANG HUMPHREY DO Oct 17, 2022 10:15
[2022-10-17 11:59] VITALS: BP 157/72
--- NOTE | 2022-10-17 12:50 | Progress Note ---
MINDA CONWAY 10/17/22 1250: Progress Note Hospital Course 61 year old female who was hospitalized at [facility] from 10/12-10/17 for acute on chronic hypoxic respiratory failure. She uses 4L O2 chronically for COPD but presented to the ED 10/12 for increased SOB and productive cough despite home oxygen and breathing treatments. Her ABG in the ED was consistent with Chronic CO2 retention for which she was placed on BiPAP and admitted to the ICU where she was treated with nebulizer therapy and steroids and was monitored by E-ICU as well as our medical team. She remained on the Bipap for the majority of her first two days in the hospital. CXR during her stay showed a small right pleural effusion and findings consistent with a possible Right sided pneumonia for which she received an abx course with Cefepime and azithromycin. Her Leukocytosis at it's worse was 17.5 on 10/15 and had improved to 11.4 by 10/17. Patient was stable enough to be moved to the medical floor on 10/15 and by 10/17 she was feeling back to her normal self and tolerating 4L O2 well. LEANN HUMPHREY DO 10/18/22 0540: Supervisory-Addendum Brief Verification & Attestation Participated in pt care: history, MDM, physical Personally performed: exam, history, MDM, supervision of care Care discussed with: Medical Student Procedures: n/a Results interpretation: Verified all documentation Verification and Attestation of Medical Student E/M Service A medical student performed and documented this service in my presence. I reviewed and verified all information documented by the medical student and made modifications to such information, when appropriate. I personally performed the physical exam and medical decision making. Leann Humphrey Oct 18, 2022,05:40 MINDA CONWAY Oct 17, 2022 12:50 LEANN HUMPHREY DO Oct 18, 2022 05:40
[2022-10-17 16:54] VITALS: BP 148/75
[2022-10-17 17:24] VITALS: BP 148/75
== END 2022-10-17 18:15 | disposition home or self-care (01) | DRG 193 ==
LOC: EDUNIT# 18:34 → ER 18:36 → ICU 20:56 → 4TH 10-15 13:42
PROVIDERS: ADMIT Internal Medicine; ATTEND Internal Medicine
PROC: 5A09357 Assistance with Respiratory Ventilation, Less than 24 Consecutive Hours, Continuous Positive Airway Pressure (ICD-10-PCS; principal; 2022-10-13)
DX: J18.9 Pneumonia, unspecified organism (principal); J96.21 Acute and chronic respiratory failure with hypoxia; J96.22 Acute and chronic respiratory failure with hypercapnia; J44.0 Chronic obstructive pulmonary disease with (acute) lower respiratory infection; J44.1 Chronic obstructive pulmonary disease with (acute) exacerbation; E11.9 Type 2 diabetes mellitus without complications; I10 Essential (primary) hypertension; Z99.81 Dependence on supplemental oxygen; J20.9 Acute bronchitis, unspecified; D64.9 Anemia, unspecified; Z79.4 Long term (current) use of insulin; Z79.84 Long term (current) use of oral hypoglycemic drugs; Z79.899 Other long term (current) drug therapy; F17.210 Nicotine dependence, cigarettes, uncomplicated; F41.9 Anxiety disorder, unspecified; Z20.822 Contact with and (suspected) exposure to COVID-19
CPT/HCPCS: 36415; 36600; 71045; 80053; 81000; 82550; 82553; 82805; 82947; 83605; 83690; 83735; 83874; 83880; 84100; 84484; 85007; 85025; 85027; 85379; 85610; 85652; 85730; 86141; 87040; 87081; 87088; 87430; 87636; 93041; 94640; 94660; 94760; 99291

== ENCOUNTER 2023-01-08 22:49 | Inpatient (IN) | payer MEDICARE ==
[~2023-01-08] VITALS: Ht 167.7 cm; Wt 140.6 kg
[~2023-01-08 22:49] MED LIST changes: +ATOR40TA70 PO; +CEFD300C3 PO; +CINN500C2 PO; -CYAN50003 PO; +CYAN50007 PO; +METF-478 PO; +POTA-330 PO; -POTA-51 PO
[2023-01-08] MEDS ORDERED: methylPREDNISolone 125 MG (Solu-MEDROL) VIAL IV STA (23:01)
[2023-01-08] MEDS ORDERED: RT-ALBUTEROL SULF 2.5 MG/3 ML PRE-MIX VIAL INH STA (23:01)
[2023-01-08 23:13] LABS: BASOPHILS # (AUTO) 0.1 10^3/uL (0.0-0.1); BASOPHILS % (AUTO) 0 % (0-10); EOSINOPHILS # (AUTO) 0.5 10^3/uL (0.0-0.3); EOSINOPHILS % (AUTO) 4 % (0-10); HEMATOCRIT 36 % (35-52); HEMOGLOBIN 11.1 g/dL (11.5-16.0); LYMPHOCYTES # (AUTO) 3.9 10^3/uL (1.0-4.0); LYMPHOCYTES % (AUTO) 26 % (12-44); MEAN CORPUSCULAR HEMOGLOBIN 24 pg (25-34); MEAN CORPUSCULAR HGB CONC 31 g/dL (32-36); MEAN CORPUSCULAR VOLUME 79 fL (80-99); MEAN PLATELET VOLUME 11.9 fL (9.0-12.2); MONOCYTES # (AUTO) 1.2 10^3/uL (0.0-1.0); MONOCYTES % (AUTO) 8 % (0-12); NEUTROPHILS # (AUTO) 9.4 10^3/uL (1.8-7.8); NEUTROPHILS % (AUTO) 62 % (42-75); PLATELET COUNT 273 10^3/uL (130-400)
[2023-01-08] MEDS ORDERED: RT-BUDESONIDE NEBS 0.5 MG/2ML (PULMICORT) AMP INH ONE (23:15)
[2023-01-08] MEDS ORDERED: CEFEPIME INJECTION 1,000 MG in NS (IVPB) 50 ML IV ONE (23:15)
[2023-01-08] MEDS ORDERED: RT-ALBUTEROL/IPRATROPIUM 3 ML (DUONEB) VIAL INH ONE (23:15)
[2023-01-08 23:24] VITALS: BP 120/44
[2023-01-08 23:28] LABS: INR 0.9 (0.8-1.4); PARTIAL THROMBOPLASTIN TIME 29 SEC (24-35); PROTHROMBIN TIME PATIENT 12.6 SEC (12.2-14.7)
[2023-01-08 23:30] LABS: ANISOCYTOSIS SLIGHT; BAND NEUTROPHILS 5 %; EOSINOPHILS % (MANUAL) 3 %; HYPOCHROMASIA SLIGHT; LYMPHOCYTES % (MANUAL) 18 %; MONOCYTES % (MANUAL) 6 %; NEUTROPHILS % (MANUAL) 68 %; PLATELET ESTIMATE NORMAL; POIKILOCYTOSIS SLIGHT
[2023-01-08 23:32] LABS: FIBRIN DEGRADATION PRODUCTS < 0.27 UG/ML (0.00-0.49)
[2023-01-08 23:33] LABS: ERYTHROCYTE SEDIMENTATION RATE 28 MM/HR (0-30)
[2023-01-08 23:34] LABS: ABG BASE EXCESS 4.6 MMOL/L (-2.5-2.5); ABG OXYGEN SATURATION 98 % (94-100); ABG PCO2 50 MMHG (35-45); ABG PH 7.39 (7.37-7.43); ABG PO2 92 MMHG (79-93); ABG TCO2 30.9 MMOL/L (21.0-31.0)
[2023-01-08 23:35] LABS: ALLENS TEST YES-POS; INSPIRED O2 4L; PATIENT TEMP 36.9; VENTILATOR NO
[2023-01-08 23:35] LABS: ALANINE AMINOTRANSFERASE 13 U/L (0-55); ALBUMIN 4.4 GM/DL (3.2-4.5); ALKALINE PHOSPHATASE 74 U/L (40-136); BILIRUBIN,TOTAL 0.2 MG/DL (0.1-1.0); BUN/CREATININE RATIO 9; CALCIUM 10.1 MG/DL (8.5-10.1); CARBON DIOXIDE 26 MMOL/L (21-32); CHLORIDE 103 MMOL/L (98-107); CREATINE KINASE 73 U/L (29-168); CREATININE SERUM 0.77 MG/DL (0.60-1.30); GFR ESTIMATED 87; GLUCOSE 186 MG/DL (70-105); SODIUM 139 MMOL/L (135-145); TOTAL PROTEIN 7.6 GM/DL (6.4-8.2)
[2023-01-08] MEDS ORDERED: LORazepam INJ 2 MG/ML (ATIVAN) VIAL IVP ONE (23:45)
[2023-01-08 23:55] LABS: TSH (THYROID ANALYZER) 0.92 UIU/ML (0.35-4.94)
[2023-01-09] MEDS ORDERED: LORazepam INJ 2 MG/ML (ATIVAN) VIAL IVP ONE (00:45)
[2023-01-09 01:44] LABS: BILIRUBIN,URINE NEGATIVE (NEGATIVE); CLARITY,URINE CLEAR; COLOR,URINE YELLOW; GLUCOSE, URINE (UA) NEGATIVE (NEGATIVE); KETONES,URINE NEGATIVE (NEGATIVE); LEUKOCYTE ESTERASE ,URINE NEGATIVE (NEGATIVE); NITRITE,URINE NEGATIVE (NEGATIVE); PH,URINE 5.5 (5-9); PROTEIN,URINE NEGATIVE (NEGATIVE)
[2023-01-09 01:51] LABS: BACTERIA,URINE NEGATIVE /HPF
[2023-01-09] MEDS ORDERED: NS IV 1000 ML 1,000 ML IV SCH (02:30)
[2023-01-09] MEDS ORDERED: NS IV 500 ML 500 ML IV PRN (02:30)
--- NOTE | 2023-01-09 02:50 | Tele-ICU Consult ---
History of Present Illness History of Present Illness Date Seen by Provider: Jan 09, 2023 Time Seen by Provider: 02:43 History of Present Illness eICU consult 62 yo F with COPD, on home oxygen, 3-4 lpm, Still smoking, Came to ED with increased SOB, increased WOB, placed on BiPAP 04/01, FiO2 70% with decrease in WOB Initial ABG 7.39/50/92, WBC 15, serology for Covid, flu and RSV negative Started on IV Cefepime, albuterol, IV Medrol Spoke with ED MD Allergies and Home Medications Allergies Coded Allergies: No Known Drug Allergies (Unverified , 06/12/15) Home Medications Albuterol Sulfate 90 Mcg Hfa.aer.ad, 2 PUFF IH Q4H PRN for SHORTNESS OF BREATH, (Reported) Albuterol Sulfate 2.5 Mg/3 Ml (0.083 %) Vial.neb, 3 ML NEB Q6H PRN for SHORTNESS OF BREATH, (Reported) Alendronate Sodium 70 Mg Tablet, 70 MG PO FRI, (Reported) Ascorbic Acid 500 Mg Capsule, 500 MG PO DAILY, (Reported) Atorvastatin Calcium 40 Mg Tablet, 40 MG PO HS, (Reported) Calcium Carbonate 600 Mg Calcium (1500 Mg) Tablet, 600 MG PO BID, (Reported) Cefdinir 300 Mg Capsule, 300 MG PO BID Prescribed by: KANG HUMPHREY on 10/17/221006 Cholecalciferol (Vitamin D3) 25 Mcg (1000 Unit) Capsule, 25 MCG PO DAILY, (Reported) Cinnamon Bark 500 Mg Capsule, 1,000 MG PO BID, (Reported) Cyanocobalamin (Vitamin B-12) 5,000 Mcg Tab.rapdis, 5,000 MCG PO DAILY, (Rep orted) Fluticasone/Salmeterol 115 Mcg-21 Mcg/Actuation Hfa.aer.ad, 2 PUFF IH BID, (Reported) Insulin Glargine,Hum.rec.anlog 100 Unit/Ml (3 Ml) Insuln.pen, 35 UNITS SQ HS, (Reported) Lisinopril 5 Mg Tablet, 5 MG PO DAILY, (Reported) Loratadine 10 Mg Tablet, 10 MG PO DAILY Prescribed by: KANG HUMPHREY on 10/17/221006 Metformin HCl 500 Mg Tab.er.24, 500 MG PO DAILY, (Reported) Montelukast Sodium 10 Mg Tablet, 10 MG PO DAILY, (Reported) Pantoprazole Sodium 40 Mg Tablet.dr, 40 MG PO DAILY, (Reported) Polyethylene Glycol 400 1 % Drops, 1 DROP OP UD PRN for DRY EYES, (Reported) Prednisone 10 Mg Tab.ds.pk, 10 MG PO DAILY Take 6 tabs(60mg)daily,decrease by 1 tab(10mg)every other day. Prescribed by: KANG HUMPHREY on 10/17/22 1007 Sertraline HCl 100 Mg Tablet, 100 MG PO HS, (Reported) TAKES 100MG +50MG TO EQUAL 150MG Sertraline HCl 50 Mg Tablet, 50 MG PO HS, (Reported) TAKES 100MG +50MG TO EQUAL 150MG Tiotropium [place] 2.5 Mcg/Actuation Mist.inhal, 2 PUFF IH DAILY, (Reported) Past Medical/Social/Family Hx Patient Social History Tobacco Use?: Yes Tobacco type used: Cigarettes Smoking Status: Current Everyday Smoker Use of E-Cig and/or Vaping dev: No Substance use?: No Alcohol Use?: Yes Alcohol Frequency: Once in a while Pt stated abuse/neglect: No Immunizations Up To Date Influenza Vaccine Up-to-Date: No; Not Current First/Initial COVID19 Vaccinat: N/A Second COVID19 Vaccination [place]: N/A Tetanus Booster (TDap): Less Than 5 Years Hepatitis A: No Hepatitis B: No TB Skin Test: None Current Status Advance Directives: No Communicates: Verbally Primary Language: Austrian Preferred Spoken Language: Austrian Is interpretation needed?: No Sensory deficits: Vision impairment Implanted or Applied Medical D: None Past Medical History PMHx: COPD O2 dependent Tremor Smoker Breast cancer s/p resection only Diabetes Osteoporosis Depression Anxiety GERD Psoriasis SurgHx: Bilateral mastectomy Bilateral tubal ligation Hiatal hernia repair Review of Systems Constitutional: see HPI EENTM: see HPI Respiratory: see HPI Cardiovascular: see HPI Gastrointestinal: see HPI Genitourinary: see HPI Musculoskeletal: see HPI Skin: see HPI Psychiatric/Neurological: See HPI Focused Exam Lactate Level 01/08/23 23:00: Lactic Acid Level 1.75 Height, Weight, BMI Height: 5'3.00" Weight: 139lbs. 0.0oz. [id number]; 24.00 BMI Method:Stated Lactic Acid Level Laboratory Tests Test 01/08/23 23:00 Lactic Acid Level 1.75 MMOL/L (0.50-2.00) Exam Exam Patient acknowledged, consented, and participated in this virtual visit which was conducted using real time audio/video Vital Signs Date Time Temp Pulse Resp B/P (MAP) Pulse Ox O2 Delivery O2 Flow Rate FiO2 01/08/23 23:24 84 99 70.00 01/08/23 22:53 64 Nasal Cannula 4.00 01/08/23 22:53 36.9 89 24 172/117 (135) 94 Room Air 01/08/23 22:53 Nasal Cannula 4.00 I & O 01/09/23 07:00 Intake Total 50 ml Balance 50 ml Height & Weight Height: 5'3.00" Weight: 139lbs. 0.0oz. 63.273073zc; 24.00 BMI Method:Stated General Appearance: Mild Distress Respiratory: Decreased Breath Sounds Cardiovascular: Regular Rate, Rhythm Capillary Refill: Less Than 3 Seconds Gastrointestinal: normal bowel sounds, non tender Extremity: No Pedal Edema Results Lab Laboratory Tests 01/08/23 23:00 Assessment/Plan Assessment/Plan AECOPD, will continue on current meds, BiPAP monitor WOB CXR does not show PNA, but look like pulm arteries are prominent Critical Care: Critically Ill Patient Time spent with patient (mins): 25 CLAUS NGUYEN MD Jan 09, 2023 02:50
[2023-01-09 03:11] VITALS: BP 120/44
[2023-01-09] MEDS ORDERED: RT-ALBUTEROL/IPRATROPIUM 3 ML (DUONEB) VIAL INH PRN (03:15)
[2023-01-09] MEDS ORDERED: ONDANSETRON 4 MG/2 ML (SDV) Z0FRAN IV PRN (03:15)
[2023-01-09] MEDS ORDERED: ACETAMINOPHEN 500 MG TAB (TYLENOL) PO PRN (03:15)
[2023-01-09] MEDS ORDERED: LORazepam INJ 2 MG/ML (ATIVAN) VIAL IV PRN (03:15)
[2023-01-09 04:42] LABS: BASOPHILS % (AUTO) 0 % (0-10); EOSINOPHILS % (AUTO) 0 % (0-10); HEMATOCRIT 32 % (35-52); HEMOGLOBIN 9.7 g/dL (11.5-16.0); LYMPHOCYTES # (AUTO) 0.8 10^3/uL (1.0-4.0); LYMPHOCYTES % (AUTO) 6 % (12-44); MEAN CORPUSCULAR HEMOGLOBIN 24 pg (25-34); MEAN CORPUSCULAR HGB CONC 31 g/dL (32-36); MEAN CORPUSCULAR VOLUME 79 fL (80-99); MEAN PLATELET VOLUME 12.1 fL (9.0-12.2); MONOCYTES # (AUTO) 0.3 10^3/uL (0.0-1.0); MONOCYTES % (AUTO) 2 % (0-12); NEUTROPHILS % (AUTO) 92 % (42-75); PLATELET COUNT 211 10^3/uL (130-400); WHITE BLOOD COUNT 14.2 10^3/uL (4.3-11.0)
[2023-01-09 04:49] LABS: POTASSIUM 3.6 MMOL/L (3.6-5.0)
[2023-01-09 04:50] LABS: CALCIUM 9.2 MG/DL (8.5-10.1)
[2023-01-09 04:51] LABS: TOTAL PROTEIN 6.7 GM/DL (6.4-8.2)
[2023-01-09 04:53] LABS: BILIRUBIN,TOTAL 0.1 MG/DL (0.1-1.0)
[2023-01-09 04:55] LABS: CREATININE SERUM 0.74 MG/DL (0.60-1.30); PHOSPHORUS 2.7 MG/DL (2.3-4.7)
[2023-01-09 04:58] LABS: MAGNESIUM 1.7 MG/DL (1.6-2.4)
[2023-01-09] MEDS ORDERED: POTASSIUM CL 10MEQ/50ML IVPB 200 ML IV ONE (05:06)
[2023-01-09] MEDS ORDERED: MAGNESIUM 1 GM/100 ML IVPB 200 ML IV ONE ×2 (05:07→05:17)
[2023-01-09] MEDS: CEFEPIME 1,000 MG/NS 50 ML IVPB IV SCH ×6 (05:23→17:00)
[2023-01-09] MEDS: inSUlin ASPART (NovoLOG) 1 UNIT/0.01 ML (CHARGE PER UNIT) SC SCH ×4 (05:27→21:08)
[2023-01-09] MEDS: MAGNESIUM 1 GM/100 ML IVPB 100 ML IV SCH ×3 (05:33→08:01)
[2023-01-09] MEDS: POTASSIUM CL 10MEQ/50ML IVPB 50 ML IV SCH ×3 (05:33→08:01)
[2023-01-09] MEDS ORDERED: KCL 20 MEQ TAB (K-DUR) PO SCH (06:00)
[2023-01-09] MEDS ORDERED: methylPREDNISolone 125 MG (Solu-MEDROL) VIAL IV SCH (06:00)
[2023-01-09] MEDS ORDERED: MAGNESIUM 1 GM/100 ML IVPB 100 ML IV SCH (06:00)
[2023-01-09] MEDS ORDERED: POTASSIUM BICARB 20 MEQ (EFFER-K) TABLET PO SCH (06:00)
[2023-01-09] MEDS ORDERED: POTASSIUM CL 10MEQ/50ML IVPB 50 ML IV SCH (06:00)
[2023-01-09] MEDS: RT-ALBUTEROL/IPRATROPIUM 3 ML (DUONEB) VIAL INH SCH ×5 (07:05→22:06)
--- NOTE | 2023-01-09 07:27 | Diagnostic Imaging Report ---
INDICATION: Dyspnea Single AP view of the chest is obtained with comparison made to study of 10/15/2022. FINDINGS: Heart size and pulmonary vascularity are within normal limits, and the lungs are clear, bilaterally. Surgical clips are noted in the axillary regions. IMPRESSION: Unremarkable chest. Dictated by: Dictated on workstation # [id number]
--- NOTE | 2023-01-09 08:46 | ED Respiratory ---
General Chief Complaint: Respiratory Problems Stated Complaint: ACUTE ON CHRONIC RESP FAILURE;COPD EXAC;IDDM, Nursing Triage Note: PT TO ED BY POV WITH DAUGHTER WITH C/O SOA SINCE MONDAY. PT STATES HER "LUNGS HURT." PT HAS COPD AND WEARS 3-4 L O2 NC CHRONICALLY. PT REPORTS PRODUCTIVE COUGH OVER THE LAST MONTH, WORSE OVER THE LAST 4 DAYS. LAST ALBUTEROL TX AT 2130. Source: patient, other (DAUGHTER) History of Present Illness Date Seen by Provider: Jan 08, 2023 Time Seen by Provider: 22:55 Initial Comments PT ARRIVES VIA POV FROM HOME WITH DAUGHTER, NEEDS WHEELCHAIR ON ARRIVAL C/O SHORTNESS OF BREATH SINCE Monday01/04/23, PROGRESSIVELY GETTING WORSE PT HAS COPD, DEPENDENT ON O2 AT 3-4L/NC CONTINUOUSLY SHE STATES SHE HAS HAD A PRODUCTIVE COUGH FOR THE LAST MONTH,AND IS GETTING WORSE--ESPECIALLY SINCE MONDAY SHE STATES HER "LUNGS HURT" NO KNOWN FEVER. SHE HAS HAD SEVERAL NEBULIZER TREATMENTS TODAY--LAST ONE AT 2130 TONIGHT--NO RELIEF. 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 NO TESTS OR TREATMENTS OR CHANGES IN MEDICATIONS SHE HAS NOT HAD ANY ANTIBIOTICS OR STEROIDS RECENTLY SHE SEES DR. BLACKBURN FOR PULMONOLOGY, BUT HAS NOT SEEN HIM IN THE LAST MONTH FOR THIS PROBLEM OR FOR ROUTINE EXAM SHE HAS BEEN ON BIPAP MULTIPLE TIMES FOR THIS ISSUE, AND SHE REQUIRED INTUBATION IN JULY 2021 FOR THIS PROBLEM. ADDITIONALLY, PT IS DIABETIC, HAS HTN PCP: ALIYA GREGORY AT [facility] BURIAL VAULT SETTER: DR. BLACKBURN, WITH BLUFFS Allergies and Home Medications Allergies Coded Allergies: No Known Drug Allergies (Unverified , 06/12/15) Patient Home Medication List Home Medication List Reviewed: Yes Albuterol Sulfate (Ventolin Hfa) 90 Mcg Hfa.aer.ad, 2 PUFF IH Q4H PRN for SHORTNESS OF BREATH, (Reported) Entered as Reported by: EVARISTO LAROSE on 12/10/20 0954 Albuterol Sulfate (Albuterol Sulfate) 2.5 Mg/3 Ml (0.083 %) Vial.neb, 3 ML NEB Q6H PRN for SHORTNESS OF BREATH, (Reported) Entered as Reported by: EVARISTO LAROSE on 05/03/22 1053 Alendronate Sodium (Alendronate Sodium) 70 Mg Tablet, 70 MG PO FRI, (Reported) Entered as Reported by: EVARISTO LAROSE on 10/14/22 0932 Ascorbic Acid (Vitamin C) 500 Mg Capsule, 500 MG PO DAILY, (Reported) Entered as Reported by: CONSTANCE LARSON on 07/20/22 09 Atorvastatin Calcium (Atorvastatin Calcium) 40 Mg Tablet, 40 MG PO HS, (Reported) Entered as Reported by: EVARISTO LAROSE on 10/14/22 0931 Calcium Carbonate (Calcium) 600 Mg Calcium (1500 Mg) Tablet, 600 MG PO BID, (Reported) Entered as Reported by: LEATHA JUSTIN on 05/03/22 0951 Cefdinir (Cefdinir) 300 Mg Capsule, 300 MG PO BID Prescribed by: KANG HUMPHREY on 10/17/22 1007 Cholecalciferol (Vitamin D3) (Vitamin D3) 25 Mcg (1000 Unit) Capsule, 25 MCG PO DAILY, (Reported) Entered as Reported by: EVARISTO LAROSE on 05/03/22 105 Cinnamon Bark (Cinnamon) 500 Mg Capsule, 1,000 MG PO BID, (Reported) Entered as Reported by: EVARISTO LAROSE on 10/13/22 153 Cyanocobalamin (Vitamin B-12) (Vitamin B12) 5,000 Mcg Tab.rapdis, 5,000 MCG PO DAILY, (Reported) Entered as Reported by: CONSTANCE LARSON on 07/20/22 09 Fluticasone/Salmeterol (Advair Hfa 115-21 Mcg Inhaler) 115 Mcg-21 Mcg/Actuation Hfa.aer.ad, 2 PUFF IH BID, (Reported) Entered as Reported by: CONSTANCE LARSON on 07/20/22 09 Insulin Glargine,Hum.rec.anlog (Lantus Solostar) 100 Unit/Ml (3 Ml) Insuln.pen, 35 UNITS SQ HS, (Reported) Entered as Reported by: EVARISTO LAROSE on 09/14/21 1544 Lisinopril (Lisinopril) 5 Mg Tablet, 5 MG PO DAILY, (Reported) Entered as Reported by: LEATHA JUSTIN on 05/03/22 09 Loratadine (Loratadine) 10 Mg Tablet, 10 MG PO DAILY Prescribed by: KANG HUMPHREY on 10/17/22 1007 Metformin HCl (Metformin HCl ER) 500 Mg Tab.er.24, 500 MG PO DAILY, (Reported) Entered as Reported by: EVARISTO LAROSE on 10/13/22 153 Montelukast Sodium (Montelukast Sodium) 10 Mg Tablet, 10 MG PO DAILY, (Reported) Entered as Reported by: EVARISTO LAROSE on 09/14/21 1544 Pantoprazole Sodium (Pantoprazole Sodium) 40 Mg Tablet.dr, 40 MG PO DAILY, (Reported) Entered as Reported by: EVARISTO LAROSE on 10/13/22 153 Polyethylene Glycol 400 (Visine Dry Eye Relief) 1 % Drops, 1 DROP OP UD PRN for DRY EYES, (Reported) Entered as Reported by: CONSTANCE LARSON on 07/20/22922 Prednisone (Prednisone) 10 Mg Tab.ds.pk, 10 MG PO DAILY Prescribed by: KANG HUMPHREY on 10/17/22 1007 Sertraline HCl (Sertraline HCl) 100 Mg Tablet, 100 MG PO HS, (Reported) Entered as Reported by: ABHI ANSARI on 08/20/15 1723 Sertraline HCl (Sertraline HCl) 50 Mg Tablet, 50 MG PO HS, (Reported) Entered as Reported by: EVARISTO LAROSE on 10/13/22 153 Tiotropium [place] (Spiriva Respimat 2.5MCG/ACTUATION) 2.5 Mcg/Actuation Mist.inhal, 2 PUFF IH DAILY, (Reported) Entered as Reported by: CONSTANCE LARSON on 07/20/22922 Review of Systems Review of Systems Constitutional: see HPI; No fever EENTM: no symptoms reported Respiratory: see HPI, cough, phlegm, short of breath, wheezing Cardiovascular: see HPI, chest pain Gastrointestinal: no symptoms reported Genitourinary: no symptoms reported Musculoskeletal: no symptoms reported Skin: no symptoms reported Psychiatric/Neurological: Anxiety Hematologic/Lymphatic: No Symptoms Reported Immunological/Allergic: no symptoms reported Past Ijzqkuf-Yrettv-Aszqgm Hx Patient Social History Tobacco Use?: Yes Tobacco type used: Cigarettes Smoking Status: Current Everyday Smoker Use of E-Cig and/or Vaping dev: No Substance use?: No Alcohol Use?: Yes Alcohol type: Hard Liquor Alcohol Frequency: Rarely Pt feels they are or have been: No Immunizations Up To Date PED Vaccines UTD: Yes Influenza Vaccine Up-to-Date: No; Not Current First/Initial COVID19 Vaccinat: N/A Second COVID19 Vaccination [place]: N/A Third COVID19 Vaccination Date: N/A Past Medical History Surgery/Hospitalization HX: COPD, iddm, gerd, high cholesterol, asthma, bilateral mastectomy, tubal, hernia, home o2 Surgeries: Yes (HERNIA, BI LAT MASECTOMY) Abdominal, Breast, Tubal Ligation Respiratory: Yes (Uses oxygen at 2 L continuously) COPD Cardiac: Yes High Cholesterol, Hypertension Neurological: Yes (VASOVAGAL SYNCOPE VS SEIZURE) Headaches /Migraines 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 0.0oz. 63.242608xz; 30.76 BMI Method:Stated General Appearance: WD/WN, moderate distress (PT VERY DYSPNEIC ON ARRIVAL, SITTING UP--NOT IN FULL TRIPOD POSITION BUT DOES NOT WANT TO RECLINE ON THE BED. REEKS OF CIGARETTES. ) HEENT: PERRL/EOMI Neck: normal inspection Respiratory: respiratory distress, accessory muscle use, rales, wheezing, other (DECREASED AERATION BILATERALLY, SHE HAS RALES BILATERALLY, AND TIGHT WHEEZING ON RIGHT ) Cardiovascular: regular rate, rhythm, no JVD Gastrointestinal: non tender Extremities: normal inspection, no pedal edema, normal capillary refill Neurologic/Psychiatric: no motor/sensory deficits, alert, oriented x 3, other (ANXIOUS) Skin: normal color, warm/dry Focused Exam Lactate Level 01/08/23 23:00: Lactic Acid Level 1.75 Lactic Acid Level Laboratory Tests Test 01/08/23 23:00 Lactic Acid Level 1.75 MMOL/L (0.50-2.00) Procedures/Interventions Date of ETT Placement: Jul 24, 2021 Time of ETT Placement: 1130 Progress/Results/Core Measures Suspected Sepsis Infection Criteria Present: None Sepsis Screen: No Definite Risk SIRS Temperature: Pulse: 74 Respiratory Rate: 23 Laboratory Tests 01/08/23 23:00: White Blood Count 15.0H Blood Pressure 120 /44 Mean: 61 01/08/23 23:00: Lactic Acid Level 1.75 Laboratory Tests 01/08/23 23:00: Creatinine 0.77, INR Comment 0.9, Platelet Count 273, Total Bilirubin 0.2 Results/Orders Lab Results Laboratory Tests Test 01/08/23 22:59 01/08/23 23:00 01/08/23 23:05 01/09/23 01:34 Range/Units Influenza Type A (RT-PCR) Not Detected Not Detecte Influenza Type B (RT-PCR) Not Detected Not Detecte SARS-CoV-2 RNA (RT-PCR) Not Detected Not Detecte White Blood Count 15.0 H 4.3-11.0 10^3/uL Red Blood Count 4.55 3.80-5.11 10^6/uL Hemoglobin 11.1 L 11.5-16.0 g/dL Hematocrit 36 35-52 % Mean Corpuscular Volume 79 L 80-99 fL Mean Corpuscular Hemoglobin 24 L 25-34 pg Mean Corpuscular Hemoglobin Concent 31 L 32-36 g/dL Red Cell Distribution Width 15.9 H 10.0-14.5 % Platelet Count 273 130-400 10^3/uL Mean Platelet Volume 11.9 9.0-12.2 fL Immature Granulocyte % (Auto) 0 % Neutrophils (%) (Auto) 62 42-75 % Lymphocytes (%) (Auto) 26 12-44 % Monocytes (%) (Auto) 8 0-12 % Eosinophils (%) (Auto) 4 0-10 % Basophils (%) (Auto) 0 0-10 % Neutrophils # (Auto) 9.4 H 1.8-7.8 10^3/uL Lymphocytes # (Auto) 3.9 1.0-4.0 10^3/uL Monocytes # (Auto) 1.2 H 0.0-1.0 10^3/uL Eosinophils # (Auto) 0.5 H 0.0-0.3 10^3/uL Basophils # (Auto) 0.1 0.0-0.1 10^3/uL Immature Granulocyte # (Auto) 0.1 0.0-0.1 10^3/uL Neutrophils % (Manual) 68 % Lymphocytes % (Manual) 18 % Monocytes % (Manual) 6 % Eosinophils % (Manual) 3 % Band Neutrophils 5 % Platelet Estimate NORMAL Hypochromasia SLIGHT Poikilocytosis SLIGHT Anisocytosis SLIGHT Erythrocyte Sedimentation Rate 28 0-30 MM/HR Prothrombin Time 12.6 12.2-14.7 SEC INR Comment 0.9 0.8-1.4 Activated Partial Thromboplast Time 29 24-35 SEC D-Dimer < 0.27 0.00-0.49 UG/ML Sodium Level 139 135-145 MMOL/L Potassium Level 4.0 3.6-5.0 MMOL/L Chloride Level 103 98-107 MMOL/L Carbon Dioxide Level 26 21-32 MMOL/L Anion Gap 10 5-14 MMOL/L Blood Urea Nitrogen 7 7-18 MG/DL Creatinine 0.77 0.60-1.30 MG/DL Estimat Glomerular Filtration Rate 87 BUN/Creatinine Ratio 9 Glucose Level 186 H 70-105 MG/DL Lactic Acid Level 1.75 0.50-2.00 MMOL/L Calcium Level 10.1 8.5-10.1 MG/DL Corrected Calcium 9.8 8.5-10.1 MG/DL Magnesium Level 2.0 1.6-2.4 MG/DL Total Bilirubin 0.2 0.1-1.0 MG/DL Aspartate Amino Transf (AST/SGOT) 13 5-34 U/L Alanine Aminotransferase (ALT/SGPT) 13 0-55 U/L Alkaline Phosphatase 74 40-136 U/L Total Creatine Kinase 73 29-168 U/L Creatine Kinase MB 1.0 <6.6 NG/ML Myoglobin 20.7 10.0-92.0 NG/ML Troponin I < 0.028 <0.028 NG/ML C-Reactive Protein High Sensitivity 0.93 H 0.00-0.50 MG/DL B-Type Natriuretic Peptide 17.3 <100.0 PG/ML Total Protein 7.6 6.4-8.2 GM/DL Albumin 4.4 3.2-4.5 GM/DL TSH [place] Testing 0.92 0.35-4.94 UIU/ML Blood Gas Puncture Site R RADIAL Blood Gas Patient Temperature 36.9 Arterial Blood pH 7.39 7.37-7.43 Arterial Blood Partial Pressure CO2 50 H 35-45 MMHG Arterial Blood Partial Pressure O2 92 79-93 MMHG Arterial Blood HCO3 29 H 23-27 MMOL/L Arterial Blood Total CO2 30.9 21.0-31.0 MMOL/L Arterial Blood Oxygen Saturation 98 94-100 % Arterial Blood Base Excess 4.6 H -2.5-2.5 MMOL/L Wes Test YES-POS Blood Gas Ventilator Setting NO Blood Gas Inspired Oxygen 4L Urine Color YELLOW Urine Clarity CLEAR Urine pH 5.5 5-9 Urine Specific [place] 1.025 H 1.016-1.022 Urine Protein NEGATIVE NEGATIVE Urine Glucose (UA) NEGATIVE NEGATIVE Urine Ketones NEGATIVE NEGATIVE Urine Nitrite NEGATIVE NEGATIVE Urine Bilirubin NEGATIVE NEGATIVE Urine Urobilinogen 0.2 < = 1.0 MG/DL Urine Leukocyte Esterase NEGATIVE NEGATIVE Urine RBC (Auto) NEGATIVE NEGATIVE Urine RBC NONE /HPF Urine WBC NONE /HPF Urine Crystals NONE /LPF Urine Bacteria NEGATIVE /HPF Urine Casts NONE /LPF Urine Mucus NEGATIVE /LPF Urine Culture Indicated NO My Orders Orders - ELADIA HOLLAND DO Ed Iv/Invasive Line Start (01/08/23 23:) Ekg Tracing (01/08/23:) O2 (01/08/23:) Monitor-Rhythm Ecg Trace Only (01/08/23:) Chest 1 View, Ap/Pa Only (01/08/23:) Bnp [place] (01/08/23:) Cbc With Automated Diff (01/08/23:) Comprehensive Metabolic Panel (01/08/23:) Creatine Kinase (01/08/23:) Creatine Kinase Mb (01/08/23:) Hs C Reactive Protein (01/08/23:) Fibrin Degradation Products (01/08/23:) Lactic Acid Analyzer (01/08/23:) Magnesium (01/08/23:) Protime With Inr (01/08/23:) Partial Thromboplastin Time (01/08/23:) Thyroid Analyzer (01/08/23:) Ua Culture If Indicated (01/08/23:) Blood Culture (01/08/23:) Erythrocyte Sedimentation Rate (01/08/23:) Myoglobin Serum (01/08/23 23:01) Troponin I [place] (01/08/23:) Albuterol Pre-Mix Nebs (Rt) (Proventil (01/08/23 23:) Albuterol/Ipra Inhalation Soln (Duoneb I (01/08/23 23:15) Budesonide Inhalation Solution (Pulmicor (01/08/23 23:15) Rt Request For Service (01/08/23:) Methylprednisolone Sod Succ (Solu-Medrol (01/08/23:) Covid 19 Inhouse Test (01/08/23:) Sputum Culture (01/08/23:) Urine Culture (01/08/23:) Ed Iv/Invasive Line Start (01/08/23:) Ed Iv/Invasive Line Start (01/08/23:) Vital Signs Adult Sepsis Patie Q15M (01/08/23:) O2 (01/08/23:) Remove Rings In Anticipation O (01/08/23:) Cefepime Injection (Maxipime Injection) (01/08/23 23:15) Svn Small Volume Nebulizer (01/08/23:) Svn Small Volume Nebulizer (01/08/23:) Svn Small Volume Nebulizer (01/08/23:) Influenza A And B By Pcr (01/08/23:) Manual Differential (01/08/23:00) Arterial Blood Gas (01/08/23 23:29) Lorazepam Injection (Ativan Injection) (01/08/23 23:45) Lorazepam Injection (Ativan Injection) (01/09/23 00:45) Catheter(Urinary) Insert & Ass 03,15 (01/09/23 01:23) Medications Given in ED Current Medications Medications Dose Ordered Sig/Patrick Route Start Time Stop Time Status Last Admin Dose Admin Albuterol/ Ipratropium 3 ml ONCE ONCE INH 01/08/23 23:15 01/08/23 23:16 DC 01/08/23 23:45 3 ML Budesonide 0.5 mg ONCE ONCE INH 01/08/23 23:15 01/08/23 23:16 DC 01/08/23 23:45 0.5 MG Cefepime HCl 1000 mg/Sodium Chloride 50 ml @ 100 mls/hr ONCE ONCE IV 01/08/23 23:15 01/08/23 23:44 DC 01/08/23 23:44 100 MLS/HR Lorazepam 1 mg ONCE ONCE IVP 01/08/23 23:45 01/08/23 23:46 DC 01/08/23 23:43 1 MG Lorazepam 1 mg ONCE ONCE IVP 01/09/23 00:45 01/09/23 00:46 DC 01/09/23 01:04 1 MG Vital Signs/I&O 01/08/23 01/08/23 01/08/23 01/08/23 22:53 22:53 22:53 23:24 Temp 36.9 Pulse 89 84 Resp 24 B/P (MAP) 172/117 (135) Pulse Ox 94 64 99 O2 Delivery Nasal Cannula Room Air Nasal Cannula O2 Flow Rate 4.00 4.00 70.00 Capillary Refill : Less Than 3 Seconds Blood Pressure Mean: 61 Point of Care Testing Finger Stick Blood Glucose: 207 Progress Note : Progress Note PT IN DISTRESS ON ARRIVAL O2 SATS 90-92% ON 4L--DUE TO PT'S WORK OF BREATHING AND KNOWN HISTORY, PT IMMEDIATELY PLACED ON BIPAP, WITH RAPID IMPROVEMENT WITH INCREASED AERATION AND DECREASED WORK OF BREATHING, AND PT IS ABLE TO SIT BACK ON ER CART SHE WAS ALSO GIVEN HOUR LONG NEB TREATMENT, WITH MUCH IMPROVEMENT IN LUNG SOUNDS--NO LONGER WHEEZING, AND NO LONGER HAS AUDIBLE RALES. SEPSIS PROTOCOL INITIATED PPE WORN COVID AND FLU TESTING DONE. GIVEN: -IV FLUIDS -ANTIBIOTICS -SOLU-MEDROL -NEB TREATMENTS -ATIVAN FOR ANXIETY. NO DETERIORATION IN PT'S CONDITION DURING ER STAY PT IS ABLE TO EVENTUALLY LAY DOWN , AND RESPIRATIONS ARE EVEN AND UNLABORED ON BIPAP, AND SHE IS MAINTAINING O2 SATS AT 99% PT STATES SHE FEELS MUCH BETTER. LABS INCLUDING CBC, CMP, BNP, TROPONIN, ABG'S, D-DIMER/PT/PTT/INR, COVID/FLU TESTING, EKG AND CXR ALSO ORDERED. WBC ELEVATED AT 15,000 ABG'S WITH NORMAL PH OF 7.39, PCO2 50, PO2 92, O2 SAT 98% CMP UNREMARKABLE EXCEPT FOR GLUCOSE 186. TROPONIN AND BNP ARE NORMAL D-DIMER IS NEGATIVE UA IS CLEAR COVID AND FLU NEGATIVE EKG DOES NOT SHOW ANY ACUTE CHANGES CXR DOES NOT SHOW ANY ACUTE CHANGES ECG Initial ECG Impression Date: Jan 09, 2023 Initial ECG Impression Time: 00:19 Initial ECG Rate: 100 Initial ECG Rhythm: Normal Sinus Initial ECG Intervals DC 141 QRS 97 QT/QTC 284/341 Initial ECG Impression: Nonspecific Changes Initial ECG Comparisson: Unchanged Diagnostic Imaging Comments CXR--NO ACUTE PROCESS, PENDING RADIOLOGIST REVIEW Reviewed: Reviewed by Me Departure Communication (Admissions) 0119--SPOKE WITH DR. MCDONALD, HOSPITALIST FOR [facility] [place] FOR [place]. 0240--REPORT TO E-ICU PHYSICIAN Impression Primary Impression: Acute on chronic respiratory failure with hypoxia and hypercapnia Additional Impressions: COPD with acute exacerbation IDDM (insulin dependent diabetes mellitus) HTN (hypertension) HX: breast cancer Disposition: ADMITTED INPATIENT Condition: Stable Admissions Decision to Admit Reason: Admit from ER (General) Decision to Admit/Date: Jan 09, 2023 Time/Decision to Admit Time: 01:20 Departure-Patient Inst. Referrals: [facility] (PCP) Primary Care Physician ELADIA HOLLAND DO Jan 09, 2023 08:46
--- NOTE | 2023-01-09 09:45 | History & Physical ---
HPI History of Present Illness: 62 yo female came to ER due to having significant shortness of breath last 3 days, but progressive worsening prior. Denies fever. Admits cough, worse than typical, coughing until she gets phlegm up and it causes her to not be able to breathe. She wears 4 lpm supplemental oxygen at home, but level depends on good and bad days. Feels like her abdomen spasms when she is coughing. She normally uses a rescue inhaler and Spiriva and has a nebulizer for albuterol. Has been using albuterol "a lot" and emergency inhaler for going on 4 days heavily. Just can't seem to get phlegm up. She hasn't gotten to her Spiriva sometimes, reports she was too busy trying to get phlegm up, didn't take it yesterday. Source: patient Exam Limitations: no limitations Date seen by provider: Jan 09, 2023 Time Seen by Provider: 09:45 Attending Physician [facility] PCP Admitting Physician: Roly Aguayo MD Attending Physician: Rocío Doyle MD Consult Date of Admission Jan 09, 2023 at 02:05 Home Medications Home Medications Reviewed patient Home Medication Reconciliation performed by pharmacy medication reconciliations cardiovascular technician and/or nursing. Patients Allergies have been reviewed. Allergies Coded Allergies: No Known Drug Allergies (Unverified , 06/12/15) LEM-[id number]-Hvismp Hx Patient Social History Smoking Status: Current Everyday Smoker Recent Hopitalizations: No Alcohol Use?: Yes (occasional) Tobacco type used: Cigarettes Immunizations Up To Date Influenza Vaccine Up-to-Date: No; Not Current First/Initial COVID19 Vaccinat: N/A Second COVID19 Vaccination [place]: N/A Third COVID19 Vaccination Date: N/A Past Medical History PMHx: COPD O2 dependent Tremor Smoker Breast cancer s/p resection only Diabetes Osteoporosis Depression Anxiety GERD Psoriasis Peripheral neuropathy SurgHx: Bilateral mastectomy Bilateral tubal ligation Hiatal hernia repair Family Medical History Significant Family History: Cancer, Diabetes, Psychiatric Problems Review of Systems ([facility]) Constitutional: No fever EENTM: No nose congestion (had last month), No throat pain (had last month) Respiratory: cough, phlegm, short of breath Cardiovascular: chest pain (believes it is from tightness with breathing/coughing) Gastrointestinal: No constipation, No diarrhea; nausea; No vomiting Genitourinary: No dysuria Musculoskeletal: No joint pain; muscle pain (around neck) Skin: rash (baseline psoriasis) Psychiatric/Neurological: No Symptoms Reported Reviewed Test Results Reviewed Test Results Lab Laboratory Tests Test 01/08/23 22:59 01/08/23 23:00 01/08/23 23:05 01/09/23 01:34 Range/Units Influenza Type A (RT-PCR) Not Detected Not Detecte Influenza Type B (RT-PCR) Not Detected Not Detecte SARS-CoV-2 RNA (RT-PCR) Not Detected Not Detecte White Blood Count 15.0 H 4.3-11.0 10^3/uL Red Blood Count 4.55 3.80-5.11 10^6/uL Hemoglobin 11.1 L 11.5-16.0 g/dL Hematocrit 36 35-52 % Mean Corpuscular Volume 79 L 80-99 fL Mean Corpuscular Hemoglobin 24 L 25-34 pg Mean Corpuscular Hemoglobin Concent 31 L 32-36 g/dL Red Cell Distribution Width 15.9 H 10.0-14.5 % Platelet Count 273 130-400 10^3/uL Mean Platelet Volume 11.9 9.0-12.2 fL Immature Granulocyte % (Auto) 0 % Neutrophils (%) (Auto) 62 42-75 % Lymphocytes (%) (Auto) 26 12-44 % Monocytes (%) (Auto) 8 0-12 % Eosinophils (%) (Auto) 4 0-10 % Basophils (%) (Auto) 0 0-10 % Neutrophils # (Auto) 9.4 H 1.8-7.8 10^3/uL Lymphocytes # (Auto) 3.9 1.0-4.0 10^3/uL Monocytes # (Auto) 1.2 H 0.0-1.0 10^3/uL Eosinophils # (Auto) 0.5 H 0.0-0.3 10^3/uL Basophils # (Auto) 0.1 0.0-0.1 10^3/uL Immature Granulocyte # (Auto) 0.1 0.0-0.1 10^3/uL Neutrophils % (Manual) 68 % Lymphocytes % (Manual) 18 % Monocytes % (Manual) 6 % Eosinophils % (Manual) 3 % Band Neutrophils 5 % Platelet Estimate NORMAL Hypochromasia SLIGHT Poikilocytosis SLIGHT Anisocytosis SLIGHT Erythrocyte Sedimentation Rate 28 0-30 MM/HR Prothrombin Time 12.6 12.2-14.7 SEC INR Comment 0.9 0.8-1.4 Activated Partial Thromboplast Time 29 24-35 SEC D-Dimer < 0.27 0.00-0.49 UG/ML Sodium Level 139 135-145 MMOL/L Potassium Level 4.0 3.6-5.0 MMOL/L Chloride Level 103 98-107 MMOL/L Carbon Dioxide Level 26 21-32 MMOL/L Anion Gap 10 5-14 MMOL/L Blood Urea Nitrogen 7 7-18 MG/DL Creatinine 0.77 0.60-1.30 MG/DL Estimat Glomerular Filtration Rate 87 BUN/Creatinine Ratio 9 Glucose Level 186 H 70-105 MG/DL Lactic Acid Level 1.75 0.50-2.00 MMOL/L Calcium Level 10.1 8.5-10.1 MG/DL Corrected Calcium 9.8 8.5-10.1 MG/DL Magnesium Level 2.0 1.6-2.4 MG/DL Total Bilirubin 0.2 0.1-1.0 MG/DL Aspartate Amino Transf (AST/SGOT) 13 5-34 U/L Alanine Aminotransferase (ALT/SGPT) 13 0-55 U/L Alkaline Phosphatase 74 40-136 U/L Total Creatine Kinase 73 29-168 U/L Creatine Kinase MB 1.0 <6.6 NG/ML Myoglobin 20.7 10.0-92.0 NG/ML Troponin I < 0.028 <0.028 NG/ML C-Reactive Protein High Sensitivity 0.93 H 0.00-0.50 MG/DL B-Type Natriuretic Peptide 17.3 <100.0 PG/ML Total Protein 7.6 6.4-8.2 GM/DL Albumin 4.4 3.2-4.5 GM/DL TSH [place] Testing 0.92 0.35-4.94 UIU/ML Blood Gas Puncture Site R RADIAL Blood Gas Patient Temperature 36.9 Arterial Blood pH 7.39 7.37-7.43 Arterial Blood Partial Pressure CO2 50 H 35-45 MMHG Arterial Blood Partial Pressure O2 92 79-93 MMHG Arterial Blood HCO3 29 H 23-27 MMOL/L Arterial Blood Total CO2 30.9 21.0-31.0 MMOL/L Arterial Blood Oxygen Saturation 98 94-100 % Arterial Blood Base Excess 4.6 H -2.5-2.5 MMOL/L Wes Test YES-POS Blood Gas Ventilator Setting NO Blood Gas Inspired Oxygen 4L Urine Color YELLOW Urine Clarity CLEAR Urine pH 5.5 5-9 Urine Specific [place] 1.025 H 1.016-1.022 Urine Protein NEGATIVE NEGATIVE Urine Glucose (UA) NEGATIVE NEGATIVE Urine Ketones NEGATIVE NEGATIVE Urine Nitrite NEGATIVE NEGATIVE Urine Bilirubin NEGATIVE NEGATIVE Urine Urobilinogen 0.2 < = 1.0 MG/DL Urine Leukocyte Esterase NEGATIVE NEGATIVE Urine RBC (Auto) NEGATIVE NEGATIVE Urine RBC NONE /HPF Urine WBC NONE /HPF Urine Crystals NONE /LPF Urine Bacteria NEGATIVE /HPF Urine Casts NONE /LPF Urine Mucus NEGATIVE /LPF Urine Culture Indicated NO Test 01/09/23 04:20 Range/Units White Blood Count 14.2 H 4.3-11.0 10^3/uL Red Blood Count 4.00 3.80-5.11 10^6/uL Hemoglobin 9.7 L 11.5-16.0 g/dL Hematocrit 32 L 35-52 % Mean Corpuscular Volume 79 L 80-99 fL Mean Corpuscular Hemoglobin 24 L 25-34 pg Mean Corpuscular Hemoglobin Concent 31 L 32-36 g/dL Red Cell Distribution Width 15.9 H 10.0-14.5 % Platelet Count 211 130-400 10^3/uL Mean Platelet Volume 12.1 9.0-12.2 fL Immature Granulocyte % (Auto) 1 % Neutrophils (%) (Auto) 92 H 42-75 % Lymphocytes (%) (Auto) 6 L 12-44 % Monocytes (%) (Auto) 2 0-12 % Eosinophils (%) (Auto) 0 0-10 % Basophils (%) (Auto) 0 0-10 % Neutrophils # (Auto) 13.0 H 1.8-7.8 10^3/uL Lymphocytes # (Auto) 0.8 L 1.0-4.0 10^3/uL Monocytes # (Auto) 0.3 0.0-1.0 10^3/uL Eosinophils # (Auto) 0.0 0.0-0.3 10^3/uL Basophils # (Auto) 0.0 0.0-0.1 10^3/uL Immature Granulocyte # (Auto) 0.1 0.0-0.1 10^3/uL Sodium Level 140 135-145 MMOL/L Potassium Level 3.6 3.6-5.0 MMOL/L Chloride Level 104 98-107 MMOL/L Carbon Dioxide Level 25 21-32 MMOL/L Anion Gap 11 5-14 MMOL/L Blood Urea Nitrogen 10 7-18 MG/DL Creatinine 0.74 0.60-1.30 MG/DL Estimat Glomerular Filtration Rate 91 BUN/Creatinine Ratio 14 Glucose Level 207 H 70-105 MG/DL Calcium Level 9.2 8.5-10.1 MG/DL Corrected Calcium 9.2 8.5-10.1 MG/DL Phosphorus Level 2.7 2.3-4.7 MG/DL Magnesium Level 1.7 1.6-2.4 MG/DL Total Bilirubin 0.1 0.1-1.0 MG/DL Aspartate Amino Transf (AST/SGOT) 14 5-34 U/L Alanine Aminotransferase (ALT/SGPT) 13 0-55 U/L Alkaline Phosphatase 60 40-136 U/L Total Protein 6.7 6.4-8.2 GM/DL Albumin 4.0 3.2-4.5 GM/DL Radiology CXR unremarkable Physical Exam-([facility]) Physical Exam Vital Signs VS - Last 72 Hours, by Label 01/08/23 01/08/23 01/08/23 01/08/23 22:53 22:53 22:53 23:24 Temp 36.9 Pulse 89 84 Resp 24 B/P (MAP) 172/117 (135) Pulse Ox 94 64 99 O2 Delivery Nasal Cannula Room Air Nasal Cannula O2 Flow Rate 4.00 4.00 70.00 01/09/23 01/09/23 01/09/23 01/09/23 02:25 02:26 02:30 02:50 Temp 36.3 Pulse 100 106 Resp 24 B/P (MAP) 153/77 (102) Pulse Ox 93 O2 Delivery OxyMask NIV Bilevel NIV Bilevel O2 Flow Rate 3.00 70.00 FiO2 70 01/09/23 01/09/23 01/09/23 01/09/23 03:00 03:11 03:37 03:57 Temp 36.9 Pulse 84 89 B/P (MAP) 111/44 (63) Pulse Ox 98 O2 Delivery NIV Bilevel NIV Bilevel NIV Bilevel O2 Flow Rate 70.00 45.00 FiO2 70 60 01/09/23 01/09/23 01/09/23 01/09/23 04:00 04:01 04:30 05:00 Pulse 78 89 72 Resp 23 23 34 B/P (MAP) 89/43 (61) 88/44 (63) Pulse Ox 98 100 95 O2 Delivery NIV Bilevel NIV Bilevel NIV Bilevel O2 Flow Rate 45.00 60.00 30.00 30.00 01/09/23 01/09/23 01/09/23 01/09/23 06:00 07:00 07:00 07:10 Pulse 75 68 71 74 Resp 35 23 23 B/P (MAP) 108/56 (78) 106/53 (70) Pulse Ox 97 96 97 O2 Delivery NIV Bilevel NIV Bilevel O2 Flow Rate 30.00 30.00 30.00 01/09/23 01/09/23 01/09/23 01/09/23 07:38 08:00 08:00 08:21 Temp 36.2 Pulse 75 Resp 23 B/P (MAP) 97/44 (61) Pulse Ox 96 O2 Delivery NIV Bilevel NIV Bilevel Nasal Cannula Nasal Cannula O2 Flow Rate 30.00 30.00 4.00 4.00 01/09/23 01/09/23 01/09/23 01/09/23 09:00 10:00 10:32 11:34 Temp 36.6 Pulse 90 105 Resp 25 25 B/P (MAP) 126/61 (82) Pulse Ox 96 93 96 O2 Delivery Nasal Cannula Nasal Cannula Nasal Cannula Nasal Cannula O2 Flow Rate 4.00 4.00 5.00 5.00 01/09/23 15:36 Pulse Ox 94 O2 Delivery Nasal Cannula O2 Flow Rate 5.00 Capillary Refill : Less Than 3 Seconds General Appearance: mild distress Respiratory: decreased breath sounds, wheezing Cardiovascular: no murmur, tachycardia Gastrointestinal: normal bowel sounds, soft Extremities: no pedal edema Neurologic/Psychiatric: normal mood/affect, oriented x 3, other (mild tremor in both hands/arms) Skin: normal color, warm/dry Assessment/Plan Assessment/Plan Admission Status: Inpatient Order (span 2 midnights) Reason for Inpatient Admission: COPD exacerbation with respiratory failure (1) COPD exacerbation Status: Acute Assessment & Plan: Started on Duonebs, solumedrol and cefepime, improved this am, will transfer out of ICU and change to PO prednisone. (2) Acute on chronic respiratory failure with hypoxia and hypercapnia Status: Acute Assessment & Plan: Improved with bipap overnight, now on 4 lpm supplemental oxygen. (3) Diabetes mellitus Status: Chronic Assessment & Plan: Diabetic diet, sliding scale insulin. Qualifiers: Qualified Codes: E11.42 - Type 2 diabetes mellitus with diabetic polyneuropathy; Z79.4 - [facility] (current) use of insulin (4) HLD (hyperlipidemia) (5) HTN (hypertension) Status: Acute (6) DVT prophylaxis Status: Acute Assessment & Plan: Enoxaparin ROCÍO DOYLE MD Jan 09, 2023 09:45
[2023-01-09] MEDS ORDERED: ASCO500T71 PO (10:34)
[2023-01-09] MEDS ORDERED: DULA0.75 SQ (10:34)
[2023-01-09] MEDS ORDERED: CETI10TA17 PO (10:34)
[2023-01-09] MEDS: ENOXAPARIN 40 MG/0.4 ML (LOVENOX) SYR SQ SCH (15:29)
[2023-01-09] MEDS ORDERED: PRD20T PO (17:29)
[2023-01-09 19:02] VITALS: BP 113/54
[2023-01-09] MEDS ORDERED: NON-FORMULARY MEDICATION 1 EA EA (Cetirizine HCl 10 MG) PO SCH (21:00)
[2023-01-09] MEDS ORDERED: NON-FORMULARY MEDICATION 1 EA EA (Insulin Glargine,Hum.rec.anlog (Lantus Solostar) 20 UNIT SQ SCH (21:00)
[2023-01-09] MEDS ORDERED: ADVAIR HFA 115/21 MCG INHALER 8 GM IH SCH (21:00)
[2023-01-09] MEDS: SERTRALINE 50 MG (ZOLOFT) TABLET PO SCH (21:05)
[2023-01-09] MEDS: SERTRALINE 100 MG (ZOLOFT) TAB PO SCH (21:05)
[2023-01-09] MEDS: CALCIUM CARBONATE 600 MG (CALCARB) TAB PO SCH (21:05)
[2023-01-09 23:16] VITALS: BP 118/62
[2023-01-10] MEDS: CEFEPIME 1,000 MG/NS 50 ML IVPB IV SCH ×8 (00:15→18:37)
[2023-01-10] MEDS: RT-ALBUTEROL/IPRATROPIUM 3 ML (DUONEB) VIAL INH SCH ×5 (02:29→18:51)
[2023-01-10 03:47] VITALS: BP 110/69
[2023-01-10 05:07] LABS: BASOPHILS % (AUTO) 0 % (0-10); EOSINOPHILS % (AUTO) 0 % (0-10); HEMATOCRIT 30 % (35-52); HEMOGLOBIN 9.2 g/dL (11.5-16.0); LYMPHOCYTES % (AUTO) 20 % (12-44); MEAN CORPUSCULAR HEMOGLOBIN 25 pg (25-34); MEAN CORPUSCULAR HGB CONC 31 g/dL (32-36); MEAN CORPUSCULAR VOLUME 79 fL (80-99); MEAN PLATELET VOLUME 12.1 fL (9.0-12.2); MONOCYTES # (AUTO) 1.1 10^3/uL (0.0-1.0); MONOCYTES % (AUTO) 7 % (0-12); NEUTROPHILS # (AUTO) 10.8 10^3/uL (1.8-7.8); NEUTROPHILS % (AUTO) 72 % (42-75); PLATELET COUNT 221 10^3/uL (130-400); WHITE BLOOD COUNT 15.1 10^3/uL (4.3-11.0)
[2023-01-10] MEDS: inSUlin ASPART (NovoLOG) 1 UNIT/0.01 ML (CHARGE PER UNIT) SC SCH ×4 (05:18→20:41)
[2023-01-10] MEDS: predniSONE 20 MG TAB PO SCH (05:21)
[2023-01-10 05:26] LABS: ALBUMIN 3.7 GM/DL (3.2-4.5); POTASSIUM 4.1 MMOL/L (3.6-5.0)
[2023-01-10 05:29] LABS: TOTAL PROTEIN 6.4 GM/DL (6.4-8.2)
[2023-01-10 05:31] LABS: BILIRUBIN,TOTAL 0.2 MG/DL (0.1-1.0)
[2023-01-10 05:32] LABS: CREATININE SERUM 0.68 MG/DL (0.60-1.30)
[2023-01-10] MEDS: FLUTICASONE/VILANTEROL 100 MCG 14'S (BREO) IH SCH (07:05)
[2023-01-10 07:17] VITALS: BP 131/73
[2023-01-10] MEDS: CYANOCOBALAMIN 1,000 MCG (VITAMIN B-12) TABLET PO SCH (08:34)
[2023-01-10] MEDS: VITAMIN D3 25 MCG (1,000 UNITS) TABLET PO SCH (08:34)
[2023-01-10] MEDS: MONTELUKAST 10 MG (SINGULAIR) TAB PO SCH (08:34)
[2023-01-10] MEDS: LORATADINE (CLARITIN) 10 MG TAB PO SCH (08:34)
[2023-01-10] MEDS: CALCIUM CARBONATE 600 MG (CALCARB) TAB PO SCH ×2 (08:34→21:32)
[2023-01-10] MEDS: ASCORBIC ACID (VIT C) 500 MG TABLET PO SCH (08:34)
[2023-01-10] MEDS: PANTOPRAZOLE 40 MG (PROTONIX) TAB PO SCH (08:34)
[2023-01-10] MEDS: lisINopril 5 MG (PRINIVIL) TABLET PO SCH (08:34)
--- NOTE | 2023-01-10 09:17 | Progress Note - Hospitalist ---
Subjective HPI/CC On Admission Date Seen by Provider: Jan 10, 2023 Time Seen by Provider: 10:00 Subjective/Events-last exam Patient doing a lot better Restart home meds Initiate PT and OT Cough suppressant ordered Review of Systems General: Fatigue, Malaise Focused Exam Lactate Level 01/08/23 23:00: Lactic Acid Level 1.75 Objective Exam Vital Signs Vital Signs Date Time Temp Pulse Resp B/P (MAP) Pulse Ox O2 Delivery O2 Flow Rate FiO2 01/10/23 20:04 36.6 80 20 122/76 (91) 96 4.00 01/10/23 18:51 Nasal Cannula 01/09/23 03:37 60 Capillary Refill : Less Than 3 Seconds General Appearance: No Apparent Distress, WD/WN, Anxious, Chronically ill Respiratory: No Accessory Muscle Use, No Respiratory Distress, Crackles, Decreased Breath Sounds Cardiovascular: Regular Rate, Rhythm Neurologic/Psychiatric: Alert, Oriented x3 Results/Procedures Lab Laboratory Tests 01/10/23 04:55 Patient resulted labs reviewed. Assessment/Plan Assessment and Plan Assess & Plan/Chief Complaint (1) COPD exacerbation Status: Acute Assessment & Plan: Started on Duonebs, solumedrol and cefepime, improved this am, will transfer out of ICU and change to PO prednisone. (2) Acute on chronic respiratory failure with hypoxia and hypercapnia Status: Acute Assessment & Plan: Improved with bipap overnight, now on 4 lpm supplemental oxygen. (3) Diabetes mellitus Status: Chronic Assessment & Plan: Diabetic diet, sliding scale insulin. 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
[2023-01-10] MEDS ORDERED: NON-FORMULARY MEDICATION 1 EA EA (Dulaglutide (Trulicity) 0.75 MG) SQ SCH (09:30)
[2023-01-10] MEDS ORDERED: NON-FORMULARY MEDICATION 1 EA EA (Alendronate Sodium 70 MG) PO SCH (09:30)
[2023-01-10] MEDS ORDERED: guaiFENesin (MUCINEX) 600 MG TAB PO NR (09:30)
[2023-01-10] MEDS: BENZONATATE 100 MG (TESSALON) CAPSULE PO SCH ×3 (09:35→21:32)
[2023-01-10 11:30] VITALS: BP 127/68
--- NOTE | 2023-01-10 11:42 | Physical Therapy Evaluation ---
PT Evaluation-General Medical Diagnosis Admission Date Jan 09, 2023 at 02:05 Medical Diagnosis: COPD exacerbation, respiratory failure/IDDM Onset Date: Jan 09, 2023 Therapy Diagnosis Therapy Diagnosis: debility Height/Weight Height (Feet): 5 Height (Inches): 3.00 Weight (Pounds): 139 Weight (Ounces): 0.0 Precautions Precautions/Isolations: Standard Precautions Referral Physician: Bebe Reason for Referral: Evaluation/Treatment Medical History Pertinent Medical History: COPD, DM, HTN, Smoking Current History ER secondary to respiratory failure/COPD/SOA Reviewed History: Yes Social History Home: Single Level Current Living Status: Alone (with family next door) Entry Into Home: Stairs With Railing PT Steps Into Home: 3 Prior Prior Level of Function SCALE: Activities may be completed with or without assistive devices. 3-Xxlokaxwpb-psfhwwz completes the activity by him/herself with no assistance from a helper. 5-Set-up or Clean-up Assistance-helper sets up or cleans up; patient completes activity. [place] assists only prior to or following the activity. 4-Supervision or Touching Assistance-helper provides verbal cues and/or touching/steadying and/or contact guard assistance as patient completes activity. Assistance may be provided throughout the activity or intermittently. 3-Partial/Moderate Assistance-helper does LESS THAN HALF the effort. [place] lifts, holds or supports trunk or limbs, but provides less than half the effort. 2-Substantial/Maximal Assistance-helper does MORE THAN HALF the effort. [place] lifts or holds trunk or limbs and provides more than half the effort. 2-Qhetqvxjl-ikhnku does ALL the effort. Patient does none of the effort to complete the activity. Or, the assistance of 2 or more helpers is required for the patient to complete the activity. If activity was not attempted, code reason: 7-Patient Refused. 9-Not Applicable-not attempted and the patient did not perform the activity before the current illness, exacerbation or injury. 10-Not Attempted due to Environmental Limitations-(lack of equipment, weather restraints, etc.). 88-Not Attempted due to Medical Conditions or Safety Concerns. Bed Mobility: 6 Transfers (B,C,W/C): 6 Gait: 6 Stairs: 6 Indoor Mobility (Ambulation): Independent Stairs: Independent Prior Devices Use: Other-see list below Prior Device Use: cane PT Evaluation-Current Subjective Patient agrees to PT. Objective Patient Orientation: Normal For Age Attachments: Oxygen, IV ROM/Strength ROM Lower Extremities bilateral LE WFL Strength Lower Extremities 4/5 grossly bilateral LE all planes Integumentary/Posture Bowel Incontinence: No Bladder Incontinence: No Posture WFL Neuromuscular (Tone, Coordination, Reflexes) grossly intact Sensory Vision: Functional Hearing: Functional Transfers Lying to Sitting/Side of Bed(Q: 6 Sit to Stand (QC): 4 Chair/Bmw-uz-Koljd Xfer(QC): 4 Toilet Transfer (QC): 4 Gait Mode of Locomotion: Walk Anticipated Mode of Locomotion: Walk Walk 10 feet (QC): 4 Walk 50 ft with 2 Turns(QC): 4 Walk 150 ft (QC): 4 Distance: 250' Gait Assistive Device: FWW Comments/Gait Description functional gait sequence/FWW for energy conservation Balance Sitting Static: Normal Sitting Dynamic: Normal Standing Static: Normal Standing Dynamic: Normal Assessment/Needs Patient will be seen short term by skilled PT to address pulmonary function with functional mobility to ensure safe return to home at maximum LOF. Rehab Potential: Fair PT Senior Living Goals Senior Living Goals PT Spiritual Advisor Goals Time Frame: Jan 21, 2023 Roll Left & Right (QC): 6 Sit to Lying (QC): 6 Lying-Sitting on Side/Bed(QC): 6 Sit to Stand (QC): 6 Chair/Fcc-sl-Jzbtv Xfer(QC): 6 Toilet Transfer (QC): 6 Walk 10 feet (QC): 6 Walk 50ft with 2 Turns (QC): 6 Walk 150 ft (QC): 6 PT Plan Problem List Problem List: Activity Tolerance, Functional Strength, Safety, Balance, Transfer, Bed Mobility Treatment/Plan Treatment Plan: Continue Plan of Care Treatment Plan: Bed Mobility, Education, Functional Activity Cecilia, Functional Strength, Gait, Safety, Therapeutic Exercise, Transfers Treatment Duration: Jan 21, 2023 Frequency: 6 times per week Estimated Hrs Per Day: .25 hour per day Patient and/or Family Agrees t: Yes Time Time In: 1120 Time Out: 1130 DATE: Jan 10, 2023 Total Billed Treatment Time: 10 Total Billed Treatment 1 visit EVModC 10 min DOUG CHRISTIANSON PT Jan 10, 2023 11:42
[2023-01-10] MEDS: ENOXAPARIN 40 MG/0.4 ML (LOVENOX) SYR SQ SCH (13:21)
--- NOTE | 2023-01-10 14:35 | Occupational Therapy Eval ---
OT Evaluation-General/PLF Medical Diagnosis Admission Date Jan 09, 2023 at 02:05 Medical Diagnosis: COPD exacerbation, respiratory failure/IDDM Onset Date: Jan 09, 2023 Therapy Diagnosis Therapy Diagnosis: SOA, low endurance Height/Weight Height (Feet): 5 Height (Inches): 3.00 Weight (Pounds): 139 Weight (Ounces): 0.0 Precautions Precautions/Isolations: Standard Precautions Weight Bear Status Weight Bearing Restriction: Full Weight Bearing Referral Physician: Bebe Referral Reason: Activity Tolerance, Evaluation/Treatment Medical History Pertinent Medical History: COPD, DM, HTN, Smoking Reviewed History: Yes Social History Home: Single Level Current Living Status: Alone (with family next door) Entry Into Home: Stairs With Railing Steps Into Home: 3 ADL-Prior Level of Function SCALE: Activities may be completed with or without assistive devices. 1-Dasieltyhd-typyzdg completes the activity by him/herself with no assistance from a helper. 5-Set-up or Clean-up Assistance-helper sets up or cleans up; patient completes activity. [place] assists only prior to or following the activity. 4-Supervision or Touching Assistance-helper provides verbal cues and/or touching/steadying and/or contact guard assistance as patient completes activity. Assistance may be provided throughout the activity or intermittently. 3-Partial/Moderate Assistance-helper does LESS THAN HALF the effort. [place] lifts, holds or supports trunk or limbs, but provides less than half the effort. 2-Substantial/Maximal Assistance-helper does MORE THAN HALF the effort. [place] lifts or holds trunk or limbs and provides more than half the effort. 3-Qaajphxto-ukuhxt does ALL the effort. Patient does none of the effort to complete the activity. Or, the assistance of 2 or more helpers is required for the patient to complete the activity. If activity was not attempted, code reason: 7-Patient Refused. 9-Not Applicable-not attempted and the patient did not perform the activity before the current illness, exacerbation or injury. 10-Not Attempted due to Environmental Limitations-(lack of equipment, weather restraints, etc.). 88-Not Attempted due to Medical Conditions or Safety Concerns. Self Care: Independent Functional Cognition: Independent Drive Self: Yes OT Current Status Subjective Seated in recliner agreeable to OT Mental Status/Objective Patient Orientation: Person, Place, Time, Situation Attachments: Oxygen Current Upper Extremity ROM BUE ROM WFLS Upper Extremity Coordination INTACT Upper Extremity Sensation INTACT Upper Extremity Strength -4/5 grossly BUE ADL-Treatment Eating (QC): 6 Oral Hygiene (QC): 6 (standing) Shower/Bathe Self (QC): 7 Upper Body Dressing (QC): 5 Lower Body Dressing (QC): 5 On/Off Footwear (QC): 6 Toileting Hygiene (QC): 5 Safety and VC for lines and machines in room Education OT Patient Education: Correct positioning, Energy conservation, Modified ADL techniques, Progress toward Goal/Update tx plan, Purpose of tx/functional activities, Reviewed precautions, Rehab process, Safety issues, Transfer techniques Teaching Methods: Demonstration, Discussion Response to Teaching: Return Demonstration OT Speech And Drama Teacher Goals Care Home Goals 1=Demonstrate adherence to instructed precautions during ADL tasks. 2=Patient will verbalize/demonstrate understanding of assistive devices/modifications for ADL. 3=Patient will improve strength/tolerance for activity to enable patient to perform ADL's. OT Education/Plan Problem List/Assessment Assessment: No Skilled OT Needs ID'd Discharge Recommendations Plan/Recommendations: Discontinue OT Treatment Plan/Plan of Care Patient would benefit from OT for education, treatment and training to promote independence in ADL's, mobility, safety and/or upper extremity function for ADL's. Plan of Care: OTHER (EVAL ONLY) Treatment Duration: Jan 10, 2023 Frequency: 1 time per week Estimated Hrs Per Day: .25 hour per day Agreement: Yes Rehab Potential: Good Time Start Time: 11:45 Stop Time: 11:55 DATE: Jan 10, 2023 Total Time Billed (hr/min): 10 Billed Treatment Time EVL 10 min JON MORATAYA OT Jan 10, 2023 14:35
[2023-01-10 16:09] VITALS: BP 106/59
[2023-01-10 20:04] VITALS: BP 122/76
[2023-01-10] MEDS ORDERED: NON-FORMULARY MEDICATION 1 EA EA (Cinnamon Bark (Cinnamon) 1,000 MG) PO SCH (21:00)
[2023-01-10] MEDS: RT-ALBUTEROL SULF 2.5 MG/3 ML PRE-MIX VIAL INH SCH (21:18)
[2023-01-10] MEDS: SERTRALINE 50 MG (ZOLOFT) TABLET PO SCH (21:32)
[2023-01-10] MEDS: SERTRALINE 100 MG (ZOLOFT) TAB PO SCH (21:32)
[2023-01-10] MEDS: guaiFENesin (MUCINEX) 600 MG TAB PO SCH (21:32)
[2023-01-10 23:55] VITALS: BP 100/55
[2023-01-11] MEDS: CEFEPIME 1,000 MG/NS 50 ML IVPB IV SCH ×6 (01:05→11:41)
[2023-01-11] MEDS: RT-ALBUTEROL SULF 2.5 MG/3 ML PRE-MIX VIAL INH SCH ×4 (01:21→14:54)
[2023-01-11 03:47] VITALS: BP 126/61
[2023-01-11] MEDS: inSUlin ASPART (NovoLOG) 1 UNIT/0.01 ML (CHARGE PER UNIT) SC SCH ×3 (05:38→16:03)
[2023-01-11 06:03] LABS: BASOPHILS # (AUTO) 0.1 10^3/uL (0.0-0.1); BASOPHILS % (AUTO) 1 % (0-10); EOSINOPHILS # (AUTO) 0.3 10^3/uL (0.0-0.3); EOSINOPHILS % (AUTO) 2 % (0-10); HEMATOCRIT 34 % (35-52); HEMOGLOBIN 10.4 g/dL (11.5-16.0); LYMPHOCYTES # (AUTO) 4.5 10^3/uL (1.0-4.0); LYMPHOCYTES % (AUTO) 33 % (12-44); MEAN CORPUSCULAR HEMOGLOBIN 25 pg (25-34); MEAN CORPUSCULAR HGB CONC 31 g/dL (32-36); MEAN CORPUSCULAR VOLUME 80 fL (80-99); MEAN PLATELET VOLUME 11.5 fL (9.0-12.2); MONOCYTES % (AUTO) 8 % (0-12); NEUTROPHILS # (AUTO) 7.5 10^3/uL (1.8-7.8); NEUTROPHILS % (AUTO) 56 % (42-75); PLATELET COUNT 241 10^3/uL (130-400); WHITE BLOOD COUNT 13.4 10^3/uL (4.3-11.0)
[2023-01-11 06:17] LABS: ALBUMIN 4.1 GM/DL (3.2-4.5); POTASSIUM 4.2 MMOL/L (3.6-5.0)
[2023-01-11 06:18] LABS: CALCIUM 9.7 MG/DL (8.5-10.1)
[2023-01-11 06:21] LABS: BILIRUBIN,TOTAL 0.2 MG/DL (0.1-1.0)
[2023-01-11 06:23] LABS: CREATININE SERUM 0.7 MG/DL (0.60-1.30)
[2023-01-11] MEDS: predniSONE 20 MG TAB PO SCH (06:30)
[2023-01-11] MEDS: FLUTICASONE/VILANTEROL 100 MCG 14'S (BREO) IH SCH (07:15)
[2023-01-11 07:31] VITALS: BP 112/64
[2023-01-11] MEDS ORDERED: TIOTROPIUM INH 4 GM (SPIRIVA Respimat) IH SCH (08:00)
[2023-01-11] MEDS: VITAMIN D3 25 MCG (1,000 UNITS) TABLET PO SCH (08:09)
[2023-01-11] MEDS: MONTELUKAST 10 MG (SINGULAIR) TAB PO SCH (08:09)
[2023-01-11] MEDS: LORATADINE (CLARITIN) 10 MG TAB PO SCH (08:09)
[2023-01-11] MEDS: CALCIUM CARBONATE 600 MG (CALCARB) TAB PO SCH (08:09)
[2023-01-11] MEDS: lisINopril 5 MG (PRINIVIL) TABLET PO SCH (08:09)
[2023-01-11] MEDS: BENZONATATE 100 MG (TESSALON) CAPSULE PO SCH ×2 (08:09→11:41)
[2023-01-11] MEDS: CYANOCOBALAMIN 1,000 MCG (VITAMIN B-12) TABLET PO SCH (08:10)
[2023-01-11] MEDS: PANTOPRAZOLE 40 MG (PROTONIX) TAB PO SCH (08:10)
[2023-01-11] MEDS: guaiFENesin (MUCINEX) 600 MG TAB PO SCH (08:10)
[2023-01-11] MEDS: ASCORBIC ACID (VIT C) 500 MG TABLET PO SCH (08:10)
[2023-01-11] MEDS ORDERED: metFORMIN XR 500 MG (GLUCOPHAGE XR) TAB PO SCH (09:00)
[2023-01-11] MEDS ORDERED: BENZ100C18 PO (10:04)
[2023-01-11] MEDS ORDERED: GUAI600T43 PO (10:05)
--- NOTE | 2023-01-11 10:08 | Discharge Summary ---
Discharge Summary Hospital Course Problems/Diagnosis: (1) COPD exacerbation Status: Acute Assessment & Plan: Started on Duonebs, solumedrol and cefepime, transitioned to PO prednisone with improvement, continued prednisone on d/c. Added Mucinex and Tessalon perles for symptom management. (2) Acute on chronic respiratory failure with hypoxia and hypercapnia Status: Resolved Resolution Date/Time: 01/10/23 @ 10:06 Assessment & Plan: Improved with bipap overnight on the night of admission, now on 4 lpm supplemental oxygen. (3) Diabetes mellitus Status: Chronic Assessment & Plan: Diabetic diet, sliding scale insulin, resumed home meds on d/c. Qualifiers: Qualified Codes: E11.42 - Type 2 diabetes mellitus with diabetic polyneuropathy; Z79.4 - correction (current) use of insulin (4) HLD (hyperlipidemia) (5) HTN (hypertension) Status: Acute Hospital Course Date of Admission: Jan 09, 2023 at 02:05 Admission Diagnosis : See problem list [facility]: 01/11/23 Discharge Diagnosis: See problem list Hospital Course: See problem list Labs and Pending Lab Test: Laboratory Tests 01/10/23 11:32: Glucometer 145H 01/10/23 16:32: Glucometer 138H 01/10/23 20:10: Glucometer 138H 01/11/23 05:11: Glucometer 105 01/11/23 05:37: White Blood Count 13.4H, Red Blood Count 4.23, Hemoglobin 10.4L, Hematocrit 34L, Mean Corpuscular Volume 80, Mean Corpuscular Hemoglobin 25, Mean Corpuscular Hemoglobin Concent 31L, Red Cell Distribution Width 16.7H, Platelet Count 241, Mean Platelet Volume 11.5, Immature Granulocyte % (Auto) 1, Neutrophils (%) (Auto) 56, Lymphocytes (%) (Auto) 33, Monocytes (%) (Auto) 8, Eosinophils (%) (Auto) 2, Basophils (%) (Auto) 1, Neutrophils # (Auto) 7.5, Lymphocytes # (Auto) 4.5H, Monocytes # (Auto) 1.0, Eosinophils # (Auto) 0.3, Basophils # (Auto) 0.1, Immature Granulocyte # (Auto) 0.1, Sodium Level 142, Potassium Level 4.2, Chloride Level 103, Carbon Dioxide Level 31, Anion Gap 8, Blood Urea Nitrogen 15, Creatinine 0.70, Estimat Glomerular Filtration Rate 97, BUN/Creatinine Ratio 21, Glucose Level 95, Calcium Level 9.7, Corrected Calcium 9.6, Total Bilirubin 0.2, Aspartate Amino Transf (AST/SGOT) 14, Alanine Aminotransferase (ALT/SGPT) 11, Alkaline Phosphatase 62, Total Protein 7.0, Albumin 4.1 Microbiology 01/09/23 MRSA Screen - Final, Complete MRSA not isolated 01/09/23 Urine Culture - Final, Complete NO GROWTH 01/08/23 Blood Culture - Preliminary, Resulted No growth Home Meds Active Tessalon Perles (Benzonatate) 100 Mg Capsule 100 Mg PO TID Prednisone 20 Mg Tab 40 Mg PO DAILY@0700 Reported Trulicity (Dulaglutide) 0.75 Mg/0.5 Ml Pen.injctr 0.75 Mg SQ WEEK Cetirizine HCl 10 Mg Tablet 10 Mg PO HS Vitamin C (Ascorbic Acid) 500 Mg Tab.chew 500 Mg PO DAILY Alendronate Sodium 70 Mg Tablet 70 Mg PO MON Atorvastatin Calcium 40 Mg Tablet 40 Mg PO HS LAST FILLED 06-20-2022 #90/90 DAY SUPPLY Cinnamon (Cinnamon Bark) 500 Mg Capsule 1,000 Mg PO BID Sertraline HCl 50 Mg Tablet 50 Mg PO HS TAKES 100MG +50MG TO EQUAL 150MG Pantoprazole Sodium 40 Mg Tablet.dr 40 Mg PO DAILY Metformin HCl ER (Metformin HCl) 500 Mg Tab.er.24 500 Mg PO DAILY Vitamin B12 (Cyanocobalamin (Vitamin B-12)) 5,000 Mcg Tab.rapdis 5,000 Mcg PO DAILY Spiriva Respimat 2.5MCG/ACTUATION (Tiotropium [place]) 2.5 Mcg/Actuation Mist.i nhal 2 Puff IH DAILY Advair Hfa 115-21 Mcg Inhaler (Fluticasone/Salmeterol) 115 Mcg-21 Mcg/Actuation Hfa.aer.ad 2 Puff IH BID Albuterol Sulfate 2.5 Mg/3 Ml (0.083 %) Vial.neb 3 Ml NEB Q6H PRN Vitamin D3 (Cholecalciferol (Vitamin D3)) 25 Mcg (1000 Unit) Capsule 25 Mcg PO DAILY Calcium (Calcium Carbonate) 600 Mg Calcium (1500 Mg) Tablet 600 Mg PO BID Lisinopril 5 Mg Tablet 5 Mg PO DAILY Lantus Solostar (Insulin Glargine,Hum.rec.anlog) 100 Unit/Ml (3 Ml) Insuln.pen 20 Units SQ BID Montelukast Sodium 10 Mg Tablet 10 Mg PO DAILY Ventolin Hfa (Albuterol Sulfate) 90 Mcg Hfa.aer.ad 2 Puff IH Q4H PRN Sertraline HCl 100 Mg Tablet 100 Mg PO HS TAKES 100MG +50MG TO EQUAL 150MG Assessment/Pt DC Instructions Follow up with Neeraj Mccarty at [facility] within a week of discharge. Discharge Diet: ADA Diet Activity as Tolerated: Yes Discharge Physical Examination Allergies: Coded Allergies: No Known Drug Allergies (Unverified , 06/12/15) General Appearance: No Apparent Distress, Thin Respiratory: Decreased Breath Sounds Cardiovascular: Regular Rate, Rhythm, No Murmur Gastrointestinal: Normal Bowel Sounds, Soft Extremity: No Pedal Edema Skin: Warm/Dry Neurologic/Psychiatric: Alert, Normal Mood/Affect LEATHA JUSTIN MD Jan 11, 2023 10:08
--- NOTE | 2023-01-11 10:38 | Physical Therapy Daily Note ---
PT Daily Note-Current Subjective Pt in bed, agreeable. Denies pain. Pain Numeric Pain Scale: 0-No Pain Location: No Pain Reported Section J - Health Conditions 1. Rarely or not at all 2. Occasionally 3. Frequently 4. Almost constantly 8. Unable to answer Pain Effect on Sleep: 1 Pain Interference with Therapy: 1 Pain Interference w/Day-to-Day: 1 Mental Status Patient Orientation: Person, Place, Time, Situation Attachments: Oxygen Transfers SCALE: Activities may be completed with or without assistive devices. 8-Qajelaynlf-klthezl completes the activity by him/herself with no assistance from a helper. 5-Set-up or Clean-up Assistance-helper sets up or cleans up; patient completes activity. [place] assists only prior to or following the activity. 4-Supervision or Touching Assistance-helper provides verbal cues and/or touching/steadying and/or contact guard assistance as patient completes activity. Assistance may be provided throughout the activity or intermittently. 3-Partial/Moderate Assistance-helper does LESS THAN HALF the effort. [place] lifts, holds or supports trunk or limbs, but provides less than half the effort. 2-Substantial/Maximal Assistance-helper does MORE THAN HALF the effort. [place] lifts or holds trunk or limbs and provides more than half the effort. 7-Gigeizcup-fawqjm does ALL the effort. Patient does none of the effort to complete the activity. Or, the assistance of 2 or more helpers is required for the patient to complete the activity. If activity was not attempted, code reason: 7-Patient Refused. 9-Not Applicable-not attempted and the patient did not perform the activity before the current illness, exacerbation or injury. 10-Not Attempted due to Environmental Limitations-(lack of equipment, weather restraints, etc.). 88-Not Attempted due to Medical Conditions or Safety Concerns. Sit to Lying (QC): 6 Lying to Sitting/Side of Bed(Q: 6 Sit to Stand (QC): 5 Weight Bearing Right Lower Extremity: Right Full Weight Bearing Left Lower Extremity: Left Full Weight Bearing Gait Training Does the Patient Walk?: Yes Distance: 250 Walk 10 feet (QC): 5 Walk 50 ft with 2 Turns(QC): 5 Walk 150 ft (QC): 5 Gait Persons Needed: 1 Gait Assistive Device: FWW SBA and assist with O2 tank. Very slow, but steady gait. Wheelchair Training Does the Pt Use a Wheelchair?: No Type of Wheelchair: N/A Treatments Gait with FWW. VCS for pursed lip breathing. Pt returned to sitting in bed with needs met, O2 in situ 4L Assessment Current Status: Fair Progress Pt tolerated fair. Activity limited by SOB, walker valuable for energy conservation. PT Curtain Stretcher Goals Group Home Goals PT Group Home Goals Time Frame: Jan 21, 2023 Roll Left & Right (QC): 6 Sit to Lying (QC): 6 Lying-Sitting on Side/Bed(QC): 6 Sit to Stand (QC): 6 Chair/Dgp-fy-Wppmc Xfer(QC): 6 Toilet Transfer (QC): 6 Walk 10 feet (QC): 6 Walk 50ft with 2 Turns (QC): 6 Walk 150 ft (QC): 6 PT Plan Problem List Problem List: Activity Tolerance, Functional Strength, Safety, Balance, Gait, Transfer Treatment/Plan Treatment Plan: Continue Plan of Care Treatment Plan: Bed Mobility, Education, Functional Activity Cecilia, Functional Strength, Gait, Safety, Therapeutic Exercise, Transfers Treatment Duration: Jan 21, 2023 Frequency: 6 times per week Estimated Hrs Per Day: .25 hour per day Patient and/or Family Agrees t: Yes Time Time In: 1018 Time Out: 1032 DATE: Jan 11, 2023 Total Billed Treatment Time: 14 Total Billed Treatment 1, ALEXA GODFREY DPLester Jan 11, 2023 10:38
[2023-01-11 11:51] VITALS: BP 112/59
[2023-01-11 15:33] VITALS: BP 94/53
[2023-01-11] MEDS: ENOXAPARIN 40 MG/0.4 ML (LOVENOX) SYR SQ SCH (15:40)
== END 2023-01-11 17:44 | disposition home or self-care (01) | DRG 189 ==
LOC: EDUNIT# 22:49 → ER 22:50 → ICU 01-09 02:05 → 4TH 01-09 14:16
PROVIDERS: ADMIT Internal Medicine; ATTEND Family Medicine
PROC: 5A09357 Assistance with Respiratory Ventilation, Less than 24 Consecutive Hours, Continuous Positive Airway Pressure (ICD-10-PCS; principal; 2023-01-09)
DX: J96.21 Acute and chronic respiratory failure with hypoxia (principal); J44.1 Chronic obstructive pulmonary disease with (acute) exacerbation; J96.22 Acute and chronic respiratory failure with hypercapnia; F17.210 Nicotine dependence, cigarettes, uncomplicated; H54.7 Unspecified visual loss; E11.9 Type 2 diabetes mellitus without complications; I10 Essential (primary) hypertension; M81.0 Age-related osteoporosis without current pathological fracture; Z20.822 Contact with and (suspected) exposure to COVID-19; F32.A Depression, unspecified; F41.9 Anxiety disorder, unspecified; K21.9 Gastro-esophageal reflux disease without esophagitis; Z99.81 Dependence on supplemental oxygen; Z85.3 Personal history of malignant neoplasm of breast; Z90.10 Acquired absence of unspecified breast and nipple; Z79.899 Other long term (current) drug therapy; Z79.4 Long term (current) use of insulin; Z79.84 Long term (current) use of oral hypoglycemic drugs; Z79.52 Long term (current) use of systemic steroids
CPT/HCPCS: 36415; 51702; 71045; 80053; 81000; 82550; 82553; 82805; 82947; 83605; 83735; 83874; 83880; 84100; 84443; 84484; 85007; 85025; 85027; 85379; 85610; 85652; 85730; 86141; 87040; 87081; 87088; 87636; 93005; 93041; 94640; 94660; 94760

== ENCOUNTER 2023-02-16 06:48 | Emergency (ER) | payer MEDICARE ==
[~2023-02-16] VITALS: Ht 168 cm; Wt 64.0 kg
[~2023-02-16 06:48] MED LIST changes: +BENZ100C18 PO; +CETI10TA17 PO; +GUAI600T43 PO
--- NOTE | 2023-02-16 06:54 | ED Respiratory ---
General Chief Complaint: Respiratory Problems Stated Complaint: SOA Source: patient, EMS History of Present Illness Date Seen by Provider: Feb 16, 2023 Time Seen by Provider: 06:53 Initial Comments Patient is a 62-year-old female with a history of COPD, oxygen dependent at 3 to 4 L at home who presents to the emergency room with 2 weeks of worsening shortn ess of breath. Patient states that she has been using her inhaler 2 to 4 puffs 4 or more times a day over the last week. No change in sputum production. No increased cough. She states that normally when she feels this way her oxygen is "low but she states its remained within normal limits. She has not had to increase her oxygen. She states she is occasionally still smoking. She does not report any fever. No increased swelling or weight gain. She states her chest "gallegos" and she relates that to increased use of albuterol. Her last nebulizer treatment prior to EMS was approximately an hour prior to their arrival. She did receive a DuoNeb in route. She states she is feeling a little bit better but knows as soon as she gets up and moves around she will become much more dyspneic. She denies a history of coronary artery disease. She denies any nausea vomiting or diarrhea. She states that her urine has been "brown" over the last week. She denies dysuria, urgency or frequency. She has had previous admission for acute on chronic respiratory failure as well as previous intubation. 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 Her local physician is [facility]. Timing/Duration: getting worse, other (2 weeks) Prior Episodes/Possible Cause: frequent episodes Modifying Factors: Improves With Albuterol Inhaler, Improves With Albuterol Nebulizer, Improves With Oxygen, Improves With Rest Associated Symptoms: chest pain/soreness ("burning"), shortness of breath Allergies and Home Medications Allergies Coded Allergies: No Known Drug Allergies (Unverified , 06/12/15) Patient Home Medication List Home Medication List Reviewed: Yes Albuterol Sulfate (Ventolin Hfa) 90 Mcg Hfa.aer.ad, 2 PUFF IH Q4H PRN for SHORTNESS OF BREATH, (Reported) Entered as Reported by: EVARISTO LAROSE on 12/10/20 6505 Albuterol Sulfate (Albuterol Sulfate) 2.5 Mg/3 Ml (0.083 %) Vial.neb, 3 ML NEB Q6H PRN for SHORTNESS OF BREATH, (Reported) Entered as Reported by: EVARISTO LAROSE on 05/03/22 1053 Alendronate Sodium (Alendronate Sodium) 70 Mg Tablet, 70 MG PO MON, (Reported) Entered as Reported by: EVARISTO LAROSE on 10/14/22 0932 Ascorbic Acid (Vitamin C) 500 Mg Tab.chew, 500 MG PO DAILY, (Reported) Entered as Reported by: EVARISTO LAROSE on 01/09/23 1034 Atorvastatin Calcium (Atorvastatin Calcium) 40 Mg Tablet, 40 MG PO HS, (Reported) Entered as Reported by: EVARISTO LAROSE on 10/14/22 0931 Benzonatate (Tessalon Perles) 100 Mg Capsule, 100 MG PO TID Prescribed by: LEATHA JUSTIN on 01/11/23 1004 Calcium Carbonate (Calcium) 600 Mg Calcium (1500 Mg) Tablet, 600 MG PO BID, (Reported) Entered as Reported by: LEATHA JUSTIN on 05/03/22 0951 Cetirizine HCl (Cetirizine HCl) 10 Mg Tablet, 10 MG PO HS, (Reported) Entered as Reported by: EVARISTO LAROSE on 01/09/23 1034 Cholecalciferol (Vitamin D3) (Vitamin D3) 25 Mcg (1000 Unit) Capsule, 25 MCG PO DAILY, (Reported) Entered as Reported by: EVARISTO LAROSE on 05/03/22 1053 Cinnamon Bark (Cinnamon) 500 Mg Capsule, 1,000 MG PO BID, (Reported) Entered as Reported by: EVARISTO LAROSE on 10/13/22 1538 Cyanocobalamin (Vitamin B-12) (Vitamin B12) 5,000 Mcg Tab.rapdis, 5,000 MCG PO DAILY, (Reported) Entered as Reported by: CONSTANCE LARSON on 07/20/22 0923 Doxycycline Hyclate (Doxycycline Hyclate) 100 Mg Tablet, 100 MG PO BID Prescribed by: BRENT FINCH on 02/16/23 0835 Dulaglutide (Trulicity) 0.75 Mg/0.5 Ml Pen.injctr, 0.75 MG SQ WEEK, (Reported) Entered as Reported by: EVARISTO LAROSE on 01/09/23 1034 Fluticasone/Salmeterol (Advair Hfa 115-21 Mcg Inhaler) 115 Mcg-21 Mcg/Actuation Hfa.aer.ad, 2 PUFF IH BID, (Reported) Entered as Reported by: CONSTANCE LARSON on 07/20/22 0923 Guaifenesin (Mucinex) 600 Mg Tab.er.12h, 600 MG PO BID Prescribed by: LEATHA JUSTIN on 01/11/23 1005 Insulin Glargine,Hum.rec.anlog (Lantus Solostar) 100 Unit/Ml (3 Ml) Insuln.pen, 20 UNITS SQ BID, (Reported) Entered as Reported by: EVARISTO LAROSE on 09/14/21 1544 Lisinopril (Lisinopril) 5 Mg Tablet, 5 MG PO DAILY, (Reported) Entered as Reported by: LEATHA JUSTIN on 05/03/22 0951 Metformin HCl (Metformin HCl ER) 500 Mg Tab.er.24, 500 MG PO DAILY, (Reported) Entered as Reported by: EVARISTO LAROSE on 10/13/22 1538 Montelukast Sodium (Montelukast Sodium) 10 Mg Tablet, 10 MG PO DAILY, (Reported) Entered as Reported by: EVARISTO LAROSE on 09/14/21 1544 Pantoprazole Sodium (Pantoprazole Sodium) 40 Mg Tablet.dr, 40 MG PO DAILY, (Reported) Entered as Reported by: EVARISTO LAROSE on 10/13/22 1538 Prednisone (Prednisone) 20 Mg Tab, 40 MG PO DAILY@0700 Prescribed by: LEATHA JUSTIN on 01/09/23 1729 Prednisone (Prednisone) 50 Mg Tab, 50 MG PO DAILY Prescribed by: BRENT FINCH on 02/16/23 0835 Sertraline HCl (Sertraline HCl) 100 Mg Tablet, 100 MG PO HS, (Reported) Entered as Reported by: ABHI ANSARI on 08/20/15 1723 Sertraline HCl (Sertraline HCl) 50 Mg Tablet, 50 MG PO HS, (Reported) Entered as Reported by: EVARISTO LAROSE on 10/13/22 1538 Tiotropium [place] (Spiriva Respimat 2.5MCG/ACTUATION) 2.5 Mcg/Actuation Mist.inhal, 2 PUFF IH DAILY, (Reported) Entered as Reported by: CONSTANCE LARSON on 07/20/22 0923 Review of Systems Review of Systems Constitutional: see HPI EENTM: no symptoms reported Respiratory: cough, dyspnea on exertion, short of breath Cardiovascular: chest pain Gastrointestinal: no symptoms reported Genitourinary: other ("brown urine") : No Musculoskeletal: no symptoms reported Skin: no symptoms reported Psychiatric/Neurological: Anxiety ("I got scared") All Other Systems Reviewed Negative Unless Noted: Yes Past Hyhbgzd-Enpmvn-Iigoqe Hx Immunizations Up To Date PED Vaccines UTD: Yes First/Initial COVID19 Vaccinat: N/A Second COVID19 Vaccination [place]: N/A Third COVID19 Vaccination Date: N/A Past Medical History Surgery/Hospitalization HX: COPD, iddm, gerd, high cholesterol, asthma, bilateral mastectomy, tubal, hernia, home o2 Surgeries: Yes (HERNIA, BI LAT MASECTOMY) Abdominal, Breast, Tubal Ligation Respiratory: Yes (Uses oxygen at 2 L continuously) COPD Cardiac: Yes High Cholesterol, Hypertension Neurological: Yes (VASOVAGAL SYNCOPE VS SEIZURE) Headaches /Migraines 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, 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 Genitourinary: No Gastrointestinal: Yes (ESOPHAGEAL SPASMS) Musculoskeletal: Yes Arthritis Endocrine: Yes Diabetes, Non-Insulin dep HEENT: No Cancer: Yes Breast Did You Recieve Any Treatments: Yes What Type of Treatment Did You: Surgical Intervention Psychosocial: Yes Anxiety, Depression Integumentary: Yes Psoriasis Blood Disorders: No Family Medical History Cancer, Diabetes, Psychiatric Problems Physical Exam Vital Signs - First Documented 02/16/23 06:50 Temp 36.4 Pulse 94 Resp 18 B/P (MAP) 162/90 (114) Pulse Ox 97 O2 Delivery Nasal Cannula O2 Flow Rate 4.00 Capillary Refill : Height: 5'3.00" Weight: 139lbs. 0.0oz. 63.224651lq; 49.99 BMI Method:Stated General Appearance: WD/WN, no apparent distress Eyes: Bilateral Eye Normal Inspection, Bilateral Eye PERRL, Bilateral Eye EOMI HEENT: PERRL/EOMI Neck: normal inspection Respiratory: no respiratory distress, crackles (at bases bilaterally posteriorly; slightly labored but no distress. Able to speak in complete sentences; ) Cardiovascular: regular rate, rhythm, other (2+ radial pulses bilaterally) Extremities: normal range of motion, non-tender, normal inspection, no pedal edema, no calf tenderness, normal capillary refill Neurologic/Psychiatric: no motor/sensory deficits, alert, normal mood/affect, oriented x 3 Skin: normal color, warm/dry Procedures/Interventions Date of ETT Placement: Jul 24, 2021 Time of ETT Placement: 1130 Progress/Results/Core Measures Suspected Sepsis SIRS Temperature: Pulse: Respiratory Rate: Laboratory Tests 02/16/23 06:55: White Blood Count 11.0 Blood Pressure / Mean: Laboratory Tests 02/16/23 06:55: Creatinine 0.69, INR Comment 1.0, Platelet Count 292, Total Bilirubin 0.2 Results/Orders Lab Results Laboratory Tests Test 02/16/23 06:54 02/16/23 06:55 02/16/23 07:27 02/16/23 07:40 Range/Units Glucometer 100 70-110 MG/DL White Blood Count 11.0 4.3-11.0 10^3/uL Red Blood Count 4.68 3.80-5.11 10^6/uL Hemoglobin 11.5 11.5-16.0 g/dL Hematocrit 37 35-52 % Mean Corpuscular Volume 79 L 80-99 fL Mean Corpuscular Hemoglobin 25 25-34 pg Mean Corpuscular Hemoglobin Concent 31 L 32-36 g/dL Red Cell Distribution Width 17.2 H 10.0-14.5 % Platelet Count 292 130-400 10^3/uL Mean Platelet Volume 11.5 9.0-12.2 fL Immature Granulocyte % (Auto) 0 % Neutrophils (%) (Auto) 53 42-75 % Lymphocytes (%) (Auto) 34 12-44 % Monocytes (%) (Auto) 8 0-12 % Eosinophils (%) (Auto) 4 0-10 % Basophils (%) (Auto) 1 0-10 % Neutrophils # (Auto) 5.9 1.8-7.8 10^3/uL Lymphocytes # (Auto) 3.8 1.0-4.0 10^3/uL Monocytes # (Auto) 0.9 0.0-1.0 10^3/uL Eosinophils # (Auto) 0.4 H 0.0-0.3 10^3/uL Basophils # (Auto) 0.1 0.0-0.1 10^3/uL Immature Granulocyte # (Auto) 0.0 0.0-0.1 10^3/uL Prothrombin Time 13.1 12.2-14.7 SEC INR Comment 1.0 0.8-1.4 Activated Partial Thromboplast Time 30 24-35 SEC Sodium Level 143 135-145 MMOL/L Potassium Level 3.9 3.6-5.0 MMOL/L Chloride Level 104 98-107 MMOL/L Carbon Dioxide Level 28 21-32 MMOL/L Anion Gap 11 5-14 MMOL/L Blood Urea Nitrogen 11 7-18 MG/DL Creatinine 0.69 0.60-1.30 MG/DL Estimat Glomerular Filtration Rate 97 BUN/Creatinine Ratio 16 Glucose Level 103 70-105 MG/DL Calcium Level 10.2 H 8.5-10.1 MG/DL Corrected Calcium 10.0 8.5-10.1 MG/DL Magnesium Level 1.9 1.6-2.4 MG/DL Total Bilirubin 0.2 0.1-1.0 MG/DL Aspartate Amino Transf (AST/SGOT) 16 5-34 U/L Alanine Aminotransferase (ALT/SGPT) 19 0-55 U/L Alkaline Phosphatase 64 40-136 U/L Troponin I < 0.028 <0.028 NG/ML B-Type Natriuretic Peptide 16.0 <100.0 PG/ML Total Protein 7.1 6.4-8.2 GM/DL Albumin 4.3 3.2-4.5 GM/DL Blood Gas Puncture Site R RAD Blood Gas Patient Temperature 36.4 Arterial Blood pH 7.37 7.37-7.43 Arterial Blood Partial Pressure CO2 54 H 35-45 MMHG Arterial Blood Partial Pressure O2 82 79-93 MMHG Arterial Blood HCO3 31 H 23-27 MMOL/L Arterial Blood Total CO2 32.6 H 21.0-31.0 MMOL/L Arterial Blood Oxygen Saturation 98 94-100 % Arterial Blood Base Excess 5.7 H -2.5-2.5 MMOL/L Wes Test YES-POS Blood Gas Ventilator Setting NO Blood Gas Inspired Oxygen 4L Urine Color YELLOW Urine Clarity CLEAR Urine pH 6.0 5-9 Urine Specific [place] 1.025 H 1.016-1.022 Urine Protein NEGATIVE NEGATIVE Urine Glucose (UA) NEGATIVE NEGATIVE Urine Ketones NEGATIVE NEGATIVE Urine Nitrite NEGATIVE NEGATIVE Urine Bilirubin NEGATIVE NEGATIVE Urine Urobilinogen 0.2 < = 1.0 MG/DL Urine Leukocyte Esterase TRACE H NEGATIVE Urine RBC (Auto) NEGATIVE NEGATIVE Urine RBC NONE /HPF Urine WBC 2-5 /HPF Urine Squamous Epithelial Cells 10-25 H /HPF Urine Crystals NONE /LPF Urine Bacteria FEW H /HPF Urine Casts NONE /LPF Urine Mucus SMALL H /LPF Urine Culture Indicated YES My Orders Orders - BRENT FINCH MD Cbc With Automated Diff (02/16/23 07:02) Magnesium (02/16/23 07:02) Chest 1 View, Ap/Pa Only (02/16/23 07:02) Ekg Tracing (02/16/23 07:02) Comprehensive Metabolic Panel (02/16/23 07:02) Protime With Inr (02/16/23 07:02) Partial Thromboplastin Time (02/16/23 07:02) O2 (02/16/23 07:02) Monitor-Rhythm Ecg Trace Only (02/16/23 07:02) Ed Iv/Invasive Line Start (02/16/23 07:02) Troponin I Vicente (02/16/23 07:02) Aspirin Chewable Tablet (Baby Aspirin Ch (02/16/23 07:15) Bnp Wirt (02/16/23 07:02) Ua Culture If Indicated (02/16/23 07:07) Arterial Blood Gas (02/16/23 07:27) Arterial Blood Draw - Obtain (02/16/23 ) Urine Culture (02/16/23 07:40) Medications Given in ED Current Medications Medications Dose Ordered Sig/Patrick Route Start Time Stop Time Status Last Admin Dose Admin Aspirin 324 mg ONCE ONCE PO 02/16/23 07:15 02/16/23 07:16 DC 02/16/23 07:20 324 MG Vital Signs/I&O 02/16/23 06:50 Temp 36.4 Pulse 94 Resp 18 B/P (MAP) 162/90 (114) Pulse Ox 97 O2 Delivery Nasal Cannula O2 Flow Rate 4.00 Capillary Refill : Progress Note : Time: 08:25 Progress Note Patient seen and evaluated by me. Evaluation today includes "Chest pain protocol" - CBC, CH12, Troponin, BNP, Coags, single view CXR, ABG, UA, EKG. Pertinent physical exam findings - WDWN female, no respiratory distress. She does have some crackles at the bases bilaterally with no wheezes. sats 97% on her 4L O2. Heart regular in the 70-80's. Normal BP. No LE edema, no abdominal tenderness. DDx based on H&P - acute exacerbation of COPD, Pneumonia, bronchitis, heart failure - new onset Labs, EKG and CXR independently reviewed and interpreted by me. Her CBC is normal, CMP is also normal, troponin undetectable. BNP is low. ABG is reassuring - slightly increased PCO2, normal pH. UA is unremarkable for infection. CXR does not show any focal infiltrate or effusion. I do question a small hyperdense area left lower lung, however the radiologist did not note this - likely artifact. EKG no ectopy and NSR without ST segment change. Patient did not require any breathing treatments or medications in the ED. VS remained stable without any deterioration in her condition. I went over all of her results with her and family at the bedside. No evidence of pneumonia or concern for heart failure. We discussed the natural course of quitting smoking and that it may cause her to have increased cough/SOB due to her lungs "waking up". I encouraged smoking cessation and advised on inhalers and oxygen use. Short course of PO steroids prescribed as well as a week of doxycycline due to component of acute bronchitis superimposed on her chronic COPD. Return precautions provided in both verbal and written format. All questions are sought and answered. ECG Initial ECG Impression Date: Feb 16, 2023 Initial ECG Impression Time: 07:17 Initial ECG Rate: 71 Initial ECG Rhythm: Normal Sinus Initial ECG Intervals NH 161 QRS 101 QTc [address] segments in leads V1 V2 slightly abnormal but not elevated otherwise normal - no ectopy Diagnostic Imaging Diagonstic Imaging: Xray Plain Films/CT/US/NM/MRI: chest Comments [facility] [place], [place] NAME: AN ZAZUETA [facility] REC#: [id number] PT STATUS: REG ER : 1960 PHYSICIAN: BRENT FINCH MD ADMIT DATE: 02/16/23/ER Draft Date of Exam:02/16/23 CHEST 1 VIEW, AP/PA ONLY EXAMINATION: Chest 1 view HISTORY: Chest pain. Shortness of breath. COMPARISON: 01/08/2023. FINDINGS: The lung volumes are hyperinflated. Bronchial wall thickening is seen in the perihilar regions. No focal consolidation is seen. No large pleural effusion or pneumothorax is seen. The cardiomediastinal silhouette is normal in size and contour. No acute osseous abnormality is seen. IMPRESSION: 1. Bronchial thickening in the perihilar regions, suggestive of bronchitis/bronchiolitis. No focal consolidation or pleural effusion. Dictated on workstation # [id number] Dict: 02/16/23 0756 Trans: 02/16/23 0801 [facility] [id number] Interpreted by: JESSE VANCE DO Electronically signed by: Counseling-Symptomatic: 3-10 Minutes Follow-up with PCP to: Discuss Further Options Departure Impression Primary Impression: COPD (chronic obstructive pulmonary disease) with acute bronchitis Disposition: HOME, SELF-CARE Condition: Stable Departure-Patient Inst. Decision time for Depature: 08:30 Referrals: [facility] (PCP/Family) Primary Care Physician Patient Instructions: Acute Bronchitis, Adult (DC) Add. Discharge Instructions: Try and quit smoking if you can. You may cough more and occasionally feel more short of breath for a while. If you need to, when more short of breath, increase your oxygen short term by about 1L. Use over the counter Mucinex (or generic version) to help thin phlegm/mucous. Drink more water to stay extra hydrated. Try and only use your inhalers every 4-6 hours as needed. Steroids for the next 5 days at 50mg a day. Antibiotics - Doxycycline 100mg twice a day for 7 days for Bronchitis. If you are developing a worsening cough, especially with fever over 100.4, more shortness of breath, return to the Emergency Department for re-evaluation. Scripts Doxycycline Hyclate (Doxycycline Hyclate) 100 Mg Tablet 100 MG PO BID for 7 Days, #14 TAB 0 Refills Prov: BRENT FINCH MD 02/16/23 Prednisone (Prednisone) 50 Mg Tab 50 MG PO DAILY for 5 Days, #5 TAB Prov: BRENT FINCH MD 02/16/23 Copy Copies To 1: GERA LOPES KATHRYN M MD Feb 16, 2023 06:54
[2023-02-16 07:11] LABS: BASOPHILS # (AUTO) 0.1 10^3/uL (0.0-0.1); BASOPHILS % (AUTO) 1 % (0-10); EOSINOPHILS # (AUTO) 0.4 10^3/uL (0.0-0.3); EOSINOPHILS % (AUTO) 4 % (0-10); HEMATOCRIT 37 % (35-52); HEMOGLOBIN 11.5 g/dL (11.5-16.0); LYMPHOCYTES # (AUTO) 3.8 10^3/uL (1.0-4.0); LYMPHOCYTES % (AUTO) 34 % (12-44); MEAN CORPUSCULAR HEMOGLOBIN 25 pg (25-34); MEAN CORPUSCULAR HGB CONC 31 g/dL (32-36); MEAN CORPUSCULAR VOLUME 79 fL (80-99); MEAN PLATELET VOLUME 11.5 fL (9.0-12.2); MONOCYTES # (AUTO) 0.9 10^3/uL (0.0-1.0); MONOCYTES % (AUTO) 8 % (0-12); NEUTROPHILS # (AUTO) 5.9 10^3/uL (1.8-7.8); NEUTROPHILS % (AUTO) 53 % (42-75); PLATELET COUNT 292 10^3/uL (130-400)
[2023-02-16 07:12] LABS: ALBUMIN 4.3 GM/DL (3.2-4.5); CHLORIDE 104 MMOL/L (98-107); POTASSIUM 3.9 MMOL/L (3.6-5.0); SODIUM 143 MMOL/L (135-145)
[2023-02-16 07:13] LABS: CALCIUM 10.2 MG/DL (8.5-10.1)
[2023-02-16 07:14] LABS: GLUCOSE 103 MG/DL (70-105); TOTAL PROTEIN 7.1 GM/DL (6.4-8.2)
[2023-02-16 07:15] LABS: CARBON DIOXIDE 28 MMOL/L (21-32); PROTHROMBIN TIME PATIENT 13.1 SEC (12.2-14.7)
[2023-02-16] MEDS ORDERED: ASPIRIN 81 MG CHEWABLE TABLET PO ONE (07:15)
[2023-02-16 07:16] LABS: BILIRUBIN,TOTAL 0.2 MG/DL (0.1-1.0)
[2023-02-16 07:17] LABS: ALKALINE PHOSPHATASE 64 U/L (40-136)
[2023-02-16 07:18] LABS: CREATININE SERUM 0.69 MG/DL (0.60-1.30); GFR ESTIMATED 97
[2023-02-16 07:19] LABS: BUN/CREATININE RATIO 16
[2023-02-16 07:21] LABS: ALANINE AMINOTRANSFERASE 19 U/L (0-55); MAGNESIUM 1.9 MG/DL (1.6-2.4)
[2023-02-16 07:36] LABS: ABG BASE EXCESS 5.7 MMOL/L (-2.5-2.5); ABG OXYGEN SATURATION 98 % (94-100); ABG PCO2 54 MMHG (35-45); ABG PH 7.37 (7.37-7.43); ABG PO2 82 MMHG (79-93); ABG TCO2 32.6 MMOL/L (21.0-31.0)
[2023-02-16 07:37] LABS: ALLENS TEST YES-POS; INSPIRED O2 4L; PATIENT TEMP 36.4; VENTILATOR NO
[2023-02-16 07:51] LABS: BILIRUBIN,URINE NEGATIVE (NEGATIVE); CLARITY,URINE CLEAR; COLOR,URINE YELLOW; GLUCOSE, URINE (UA) NEGATIVE (NEGATIVE); KETONES,URINE NEGATIVE (NEGATIVE); LEUKOCYTE ESTERASE ,URINE TRACE (NEGATIVE); NITRITE,URINE NEGATIVE (NEGATIVE); PROTEIN,URINE NEGATIVE (NEGATIVE)
--- NOTE | 2023-02-16 08:02 | Diagnostic Imaging Report ---
EXAMINATION: Chest 1 view HISTORY: Chest pain. Shortness of breath. COMPARISON: 01/08/2023. FINDINGS: The lung volumes are hyperinflated. Bronchial wall thickening is seen in the perihilar regions. No focal consolidation is seen. No large pleural effusion or pneumothorax is seen. The cardiomediastinal silhouette is normal in size and contour. No acute osseous abnormality is seen. IMPRESSION: 1. Bronchial thickening in the perihilar regions, suggestive of bronchitis/bronchiolitis. No focal consolidation or pleural effusion. Dictated by: Dictated on workstation # [id number]
[2023-02-16 08:04] LABS: BACTERIA,URINE FEW /HPF
[2023-02-16] MEDS ORDERED: DOXY100T2 PO (08:35)
[2023-02-16] MEDS ORDERED: PRD50T PO (08:35)
[2023-02-16 08:51] VITALS: BP 110/58
== END 2023-02-16 08:52 | disposition home or self-care (01) ==
LOC: EDUNIT# 06:48 → ER 06:49
DX: J20.9 Acute bronchitis, unspecified (principal); J44.0 Chronic obstructive pulmonary disease with (acute) lower respiratory infection; Z99.81 Dependence on supplemental oxygen
CPT/HCPCS: 36415; 36600; 71045; 80053; 81000; 82805; 82947; 83735; 83880; 84484; 85025; 85610; 85730; 87088; 93005; 93041

== ENCOUNTER 2023-05-15 23:10 | Emergency (ER) | payer MEDICARE ==
[~2023-05-15] VITALS: Ht 168 cm; Wt 64.0 kg
[~2023-05-15 23:10] MED LIST changes: +DOXY100T2 PO
[2023-05-15] MEDS ORDERED: methylPREDNISolone INJ 125 MG VIAL IVP ONE (23:30)
[2023-05-15] MEDS ORDERED: RT-Ipratropium/Albuterol NEB 3 ML VIAL INH ONE (23:30)
--- NOTE | 2023-05-15 23:30 | ED Respiratory ---
General Chief Complaint: Respiratory Problems Stated Complaint: SOB Nursing Triage Note: brought in by [facility] ems for increased soa today. pt reports increased cough/soa x5 days. duoneb administered enroute to hospital. Source: patient, EMS (DANNY HERNANDEZ) History of Present Illness Date Seen by Provider: May 15, 2023 Time Seen by Provider: 23:20 Initial Comments 62 YO female with PMH of COPD presents to ED via EMS c/o shortness of breath. Pt reports for last x 5 days she has tried to quit smoking and today she began having significant difficulty breathing. She normally wears 4L O2 at home and has had to use both her albuterol inhaler as well as multiple nebulized treatments with little relief. Notes ambulation and urination makes it more difficult to breath. She has a mild productive cough, but denies fever, chills, chest pain, urinary symptoms, leg swelling, or any other complaints. She received a duoneb en route. Timing/Duration: constant Severity: moderate Prior Episodes/Possible Cause: frequent episodes, smoke exposure Modifying Factors: Improves With Albuterol Inhaler, Improves With Albuterol Nebulizer, Improves With Oxygen Associated Symptoms: No chest pain/soreness; cough; No dizziness, No fever/chills, No headache, No lightheadedness; shortness of breath; No sore throat; wheezing (DANNY HERNANDEZ) Allergies and Home Medications Allergies Coded Allergies: No Known Drug Allergies (Unverified , 06/12/15) Patient Home Medication List Home Medication List Reviewed: Yes (DANNY HERNANDEZ) Albuterol Sulfate (Ventolin Hfa) 90 Mcg Hfa.aer.ad, 2 PUFF IH Q4H PRN for SHORTNESS OF BREATH, (Reported) Entered as Reported by: EVARISTO LAROSE on 12/10/20 0954 Albuterol Sulfate (Albuterol Sulfate) 2.5 Mg/3 Ml (0.083 %) Vial.neb, 3 ML NEB Q6H PRN for SHORTNESS OF BREATH, (Reported) Entered as Reported by: EVARISTO LAROSE on 05/03/22 1053 Alendronate Sodium (Alendronate Sodium) 70 Mg Tablet, 70 MG PO MON, (Reported) Entered as Reported by: EVARISTO LAROSE on 10/14/22 0932 Ascorbic Acid (Vitamin C) 500 Mg Tab.chew, 500 MG PO DAILY, (Reported) Entered as Reported by: EVARISTO LAROSE on 01/09/23 1034 Atorvastatin Calcium (Atorvastatin Calcium) 40 Mg Tablet, 40 MG PO HS, (Reported) Entered as Reported by: EVARISTO LAROSE on 10/14/22 0931 Benzonatate (Tessalon Perles) 100 Mg Capsule, 100 MG PO TID Prescribed by: LEATHA JUSTIN on 01/11/23 1004 Calcium Carbonate (Calcium) 600 Mg Calcium (1500 Mg) Tablet, 600 MG PO BID, (Reported) Entered as Reported by: LEATHA JUSTIN on 05/03/22 0951 Cetirizine HCl (Cetirizine HCl) 10 Mg Tablet, 10 MG PO HS, (Reported) Entered as Reported by: EVARISTO LAROSE on 01/09/23 1034 Cholecalciferol (Vitamin D3) (Vitamin D3) 25 Mcg (1000 Unit) Capsule, 25 MCG PO DAILY, (Reported) Entered as Reported by: EVARISTO LAROSE on 05/03/22 1053 Cinnamon Bark (Cinnamon) 500 Mg Capsule, 1,000 MG PO BID, (Reported) Entered as Reported by: EVARISTO LAROSE on 10/13/22 1538 Cyanocobalamin (Vitamin B-12) (Vitamin B12) 5,000 Mcg Tab.rapdis, 5,000 MCG PO DAILY, (Reported) Entered as Reported by: CONSTANCE LARSON on 07/20/22 0923 Doxycycline Hyclate (Doxycycline Hyclate) 100 Mg Tablet, 100 MG PO BID Prescribed by: BRENT FINCH on 02/16/23 0835 Dulaglutide (Trulicity) 0.75 Mg/0.5 Ml Pen.injctr, 0.75 MG SQ WEEK, (Reported) Entered as Reported by: EVARISTO LAROSE on 01/09/23 1034 Fluticasone/Salmeterol (Advair Hfa 115-21 Mcg Inhaler) 115 Mcg-21 Mcg/Actuation Hfa.aer.ad, 2 PUFF IH BID, (Reported) Entered as Reported by: CONSTANCE LARSON on 07/20/22 0923 Guaifenesin (Mucinex) 600 Mg Tab.er.12h, 600 MG PO BID Prescribed by: LEATHA JUSTIN on 01/11/23 1005 Insulin Glargine,Hum.rec.anlog (Lantus Solostar) 100 Unit/Ml (3 Ml) Insuln.pen, 20 UNITS SQ BID, (Reported) Entered as Reported by: EVARISTO LAROSE on 09/14/21 1544 Lisinopril (Lisinopril) 5 Mg Tablet, 5 MG PO DAILY, (Reported) Entered as Reported by: LEATHA JUSTIN on 05/03/22 0951 Metformin HCl (Metformin HCl ER) 500 Mg Tab.er.24, 500 MG PO DAILY, (Reported) Entered as Reported by: EVARISTO LAROSE on 10/13/22 1538 Montelukast Sodium (Montelukast Sodium) 10 Mg Tablet, 10 MG PO DAILY, (Reported) Entered as Reported by: EVARISTO LAROSE on 09/14/21 1544 Pantoprazole Sodium (Pantoprazole Sodium) 40 Mg Tablet.dr, 40 MG PO DAILY, (Reported) Entered as Reported by: EVARISTO LAROSE on 10/13/22 1538 Prednisone (Prednisone) 20 Mg Tab, 40 MG PO DAILY@0700 Prescribed by: LEATHA JUSTIN on 01/09/23 1729 Prednisone (Prednisone) 50 Mg Tab, 50 MG PO DAILY Prescribed by: BRENT FINCH on 02/16/23 0835 Prednisone (Prednisone) 50 Mg Tab, 50 MG PO DAILY Prescribed by: PARISH WANG MD on 05/16/23 0032 Sertraline HCl (Sertraline HCl) 100 Mg Tablet, 100 MG PO HS, (Reported) Entered as Reported by: ABHI ANSARI on 08/20/15 1723 Sertraline HCl (Sertraline HCl) 50 Mg Tablet, 50 MG PO HS, (Reported) Entered as Reported by: EVARISTO LAROSE on 10/13/22 1538 Tiotropium [place] (Spiriva Respimat 2.5MCG/ACTUATION) 2.5 Mcg/Actuation Mist.inhal, 2 PUFF IH DAILY, (Reported) Entered as Reported by: CONSTANCE LARSON on 07/20/22 0923 Review of Systems Review of Systems Constitutional: No chills, No diaphoresis, No fever EENTM: No throat pain, No throat swelling Respiratory: cough, dyspnea on exertion; No hemoptysis, No orthopnea; short of breath; No stridor Cardiovascular: No chest pain, No edema, No palpitations Gastrointestinal: No abdominal pain, No diarrhea, No jaundice, No nausea, No vomiting Genitourinary: No dysuria, No frequency, No hematuria : No Musculoskeletal: No muscle twitching, No muscle weakness, No neck pain Skin: No change in color, No lesions, No rash Psychiatric/Neurological: Denies Numbness (DANNY HERNANDEZ) All Other Systems Reviewed Negative Unless Noted: Yes (DANNY HERNANDEZ) Past Pqjbenu-Ubczqu-Vmynud Hx Patient Social History Tobacco Use?: Yes Tobacco type used: Cigarettes Smoking Status: Current Everyday Smoker Substance use?: No Alcohol Use?: No Pt feels they are or have been: No (DANNY HERNANDEZ) Immunizations Up To Date PED Vaccines UTD: Yes First/Initial COVID19 Vaccinat: N/A Second COVID19 Vaccination [place]: N/A Third COVID19 Vaccination Date: N/A (DANNY HERNANDEZ) Past Medical History Surgery/Hospitalization HX: COPD, iddm, gerd, high cholesterol, asthma, bilateral mastectomy, tubal, hernia, home o2, anxiety, depression, htn, Surgeries: Yes (HERNIA, BI LAT MASECTOMY) Abdominal, Breast, Tubal Ligation Respiratory: Yes (Uses oxygen at 2 L continuously) COPD Cardiac: Yes High Cholesterol, Hypertension Neurological: Yes (VASOVAGAL SYNCOPE VS SEIZURE) Headaches /Migraines [place] BINDER History: Tubal Ligation, Menopausal Genitourinary: No Gastrointestinal: Yes (ESOPHAGEAL SPASMS) Musculoskeletal: Yes Arthritis Endocrine: Yes Diabetes, Non-Insulin dep HEENT: No Cancer: Yes Breast Did You Recieve Any Treatments: Yes What Type of Treatment Did You: Surgical Intervention Psychosocial: Yes Anxiety, Depression Integumentary: Yes Psoriasis Blood Disorders: No (DANNY HERNANDEZ) Family Medical History Cancer, Diabetes, Psychiatric Problems (DANNY HERNANDEZ) Physical Exam Vital Signs - First Documented 05/15/23 23:10 Temp 36.5 Pulse 119 Resp 20 B/P (MAP) 133/80 (97) Pulse Ox 95 O2 Delivery Nasal Cannula O2 Flow Rate 4.00 (PARISH WANG DO) Capillary Refill : Less Than 3 Seconds (DANNY HERNANDEZ) Height: 5'3.00" Weight: 139lbs. 0.0oz. [id number]; 22.00 BMI Method:Stated General Appearance: WD/WN, mild distress Eyes: Bilateral Eye Normal Inspection, Bilateral Eye PERRL, Bilateral Eye EOMI HEENT: PERRL/EOMI, normal ENT inspection, pharynx normal Neck: non-tender, full range of motion, supple Respiratory: chest non-tender, no accessory muscle use, respiratory distress (mild increase work of breathing); No accessory muscle use, No crackles; rhonchi (coarse breath sounds); No stridor; wheezing (expiratory wheezing bilaterally); No plerual rub Cardiovascular: regular rate, rhythm, no edema, no gallop, no JVD, no murmur Gastrointestinal: normal bowel sounds, non tender, soft, no organomegaly, no pulsatile mass Extremities: normal range of motion, non-tender, normal inspection, no pedal edema, no calf tenderness, normal capillary refill Neurologic/Psychiatric: no motor/sensory deficits, alert, normal mood/affect, oriented x 3 Skin: normal color, warm/dry Lymphatic: no adenopathy (DANNY HERNANDEZ) Procedures/Interventions Date of ETT Placement: Jul 24, 2021 Time of ETT Placement: 1130 (DANNY HERNANDEZ) Progress/Results/Core Measures Suspected Sepsis SIRS Temperature: Pulse: 119 Respiratory Rate: 20 Blood Pressure 133 /80 Mean: 97 (DANNY HERNANDEZ) Results/Orders Lab Results Laboratory Tests Test 05/15/23 23:18 05/15/23 23:30 Range/Units White Blood Count 13.7 H 4.3-11.0 10^3/uL Red Blood Count 4.46 3.80-5.11 10^6/uL Hemoglobin 11.2 L 11.5-16.0 g/dL Hematocrit 36 35-52 % Mean Corpuscular Volume 80 80-99 fL Mean Corpuscular Hemoglobin 25 25-34 pg Mean Corpuscular Hemoglobin Concent 31 L 32-36 g/dL Red Cell Distribution Width 15.4 H 10.0-14.5 % Platelet Count 286 130-400 10^3/uL Mean Platelet Volume 11.6 9.0-12.2 fL Immature Granulocyte % (Auto) 0 % Neutrophils (%) (Auto) 63 42-75 % Lymphocytes (%) (Auto) 23 12-44 % Monocytes (%) (Auto) 7 0-12 % Eosinophils (%) (Auto) 6 0-10 % Basophils (%) (Auto) 1 0-10 % Neutrophils # (Auto) 8.7 H 1.8-7.8 10^3/uL Lymphocytes # (Auto) 3.1 1.0-4.0 10^3/uL Monocytes # (Auto) 1.0 0.0-1.0 10^3/uL Eosinophils # (Auto) 0.8 H 0.0-0.3 10^3/uL Basophils # (Auto) 0.1 0.0-0.1 10^3/uL Immature Granulocyte # (Auto) 0.1 0.0-0.1 10^3/uL Sodium Level 141 135-145 MMOL/L Potassium Level 4.1 3.6-5.0 MMOL/L Chloride Level 101 98-107 MMOL/L Carbon Dioxide Level 26 21-32 MMOL/L Anion Gap 14 5-14 MMOL/L Blood Urea Nitrogen 9 7-18 MG/DL Creatinine 0.72 0.60-1.30 MG/DL Estimat Glomerular Filtration Rate 94 BUN/Creatinine Ratio 13 Glucose Level 157 H 70-105 MG/DL Calcium Level 9.8 8.5-10.1 MG/DL Influenza Type A (RT-PCR) Not Detected Not Detecte Influenza Type B (RT-PCR) Not Detected Not Detecte SARS-CoV-2 RNA (RT-PCR) Not Detected Not Detecte (PARISH WANG DO) My Orders Orders - PARISH WANG DO Basic Metabolic Panel (05/15/23 23:24) Chest 1 View, Ap/Pa Only (05/15/23 23:24) Covid 19 Inhouse Test (05/15/23 23:24) Cbc And Automated Diff (05/15/23 23:24) Influenza A And B By Pcr (05/15/23 23:24) Methylprednisolone Sod Succ (Methylpredn (05/15/23 23:30) Ipratropium/Albuterol Inh Soln (Ipratrop (05/15/23 23:30) Svn Small Volume Nebulizer (05/15/23 23:24) (PARISH WANG DO) Medications Given in ED (PARISH WANG DO) Vital Signs/I&O 05/15/23 05/15/23 05/16/23 23:10 23:32 00:41 Temp 36.5 36.2 Pulse 119 98 Resp 20 16 B/P (MAP) 133/80 (97) 104/66 Pulse Ox 95 97 99 O2 Delivery Nasal Cannula Nasal Cannula Nasal Cannula O2 Flow Rate 4.00 4.00 4.00 (PARISH WANG DO) Vital Signs/I&O Capillary Refill : Less Than 3 Seconds (DANNY HERNANDEZ) Blood Pressure Mean: 97 Progress Note : Time: 23:35 Progress Note Initial impression: 62 YO female with COPD presented to ED via EMS due to increased difficulty breathing after attempted smoking cessation. She arrived with mild respiratory distress with 96% on 4L O2. She was given one duoneb en route. She is afebrile with remaining of vital signs requiring no immediate intervention. Exam is remarkable for mild respiratory distress with increased work of breathing, expiratory wheezing and coarse breath sounds bilaterally. Heart rate was regular. No leg swelling. DDx includes COPD exacerbation, PNA, PTX, PE vs others. Low suspicion for PTX as she has breath sounds bilaterally. Low likelihood of PE with minimal tachypnea, no recent travel or DVT, and history is more consistent with exacerbation of her COPD. Will obtain chest xray, COVID testing, and obtain CBC and CMP. Will provide an additional duoneb and solumedrol for symptom control. Pt agrees with plan. (DANNY HERNANDEZ) Departure Communication (Admissions) I have personally seen and evaluated the patient. I agree with the provided history and physical exam documented by the medical student I reviewed all lab findings, imaging. Chest x-ray shows no acute cardiopulmonary abnormality. Labs are reassuring. She is given a DuoNeb and some steroid medication and observed for significant period of time. Her symptoms dramatically improved during her stay and she is on her home oxygen requirement throughout her emergency department stay. That she is discharged home with prescription for steroids. She has a nebulizer at home which she was to continue to use (PARISH WANG DO) Impression Primary Impression: COPD exacerbation Disposition: 01 HOME, SELF-CARE Condition: Stable Departure-Patient Inst. Referrals: [facility] (PCP/Family) Primary Care Physician Patient Instructions: COPD Exacerbation, Adult ED Add. Discharge Instructions: You were seen for shortness of breath. This is likely related to COPD. I have prescribed steroids which you can roller picker tomorrow and take daily in the morning until they are gone. Return to the ER for any severe concerns or if your symptoms change in any way concerning to you. Follow up with your primary doctor in the next few days. All discharge instructions reviewed with patient and/or family. Voiced understanding. Scripts Prednisone (Prednisone) 50 Mg Tab 50 MG PO DAILY for 5 Days, #5 TAB Prov: PARISH WANG DO 05/16/23 DANNY HERNANDEZ May 15, 2023 23:30 PARISH WANG DO May 16, 2023 00:35
[2023-05-15 23:35] LABS: BASOPHILS # (AUTO) 0.1 10^3/uL (0.0-0.1); BASOPHILS % (AUTO) 1 % (0-10); EOSINOPHILS # (AUTO) 0.8 10^3/uL (0.0-0.3); EOSINOPHILS % (AUTO) 6 % (0-10); HEMATOCRIT 36 % (35-52); HEMOGLOBIN 11.2 g/dL (11.5-16.0); LYMPHOCYTES # (AUTO) 3.1 10^3/uL (1.0-4.0); LYMPHOCYTES % (AUTO) 23 % (12-44); MEAN CORPUSCULAR HEMOGLOBIN 25 pg (25-34); MEAN CORPUSCULAR HGB CONC 31 g/dL (32-36); MEAN CORPUSCULAR VOLUME 80 fL (80-99); MEAN PLATELET VOLUME 11.6 fL (9.0-12.2); MONOCYTES % (AUTO) 7 % (0-12); NEUTROPHILS # (AUTO) 8.7 10^3/uL (1.8-7.8); NEUTROPHILS % (AUTO) 63 % (42-75); PLATELET COUNT 286 10^3/uL (130-400); WHITE BLOOD COUNT 13.7 10^3/uL (4.3-11.0)
[2023-05-15 23:37] LABS: POTASSIUM 4.1 MMOL/L (3.6-5.0)
[2023-05-15 23:39] LABS: CALCIUM 9.8 MG/DL (8.5-10.1)
[2023-05-15 23:43] LABS: CREATININE SERUM 0.72 MG/DL (0.60-1.30)
[2023-05-16] MEDS ORDERED: PRD50T PO (00:32)
[2023-05-16 00:41] VITALS: BP 104/66
--- NOTE | 2023-05-16 07:52 | Diagnostic Imaging Report ---
EXAMINATION: Chest radiograph, portable AP view. DATE: 05/15/2023 11:41 PM INDICATION: 62-year-old female, increasing shortness of breath. COMPARISON: February 16, 2023. FINDINGS: Heart size and mediastinal contours are unchanged. There is no identified pneumothorax. There is no large pleural effusion. There is no identified focal airspace consolidation. There are surgical clips in the region of the right and left axilla. IMPRESSION: 1. No identified acute cardiopulmonary abnormality. Dictated by: Dictated on workstation # [id number]
== END 2023-05-16 01:18 | disposition home or self-care (01) ==
LOC: EDUNIT# 23:11 → ER 23:13
DX: J44.1 Chronic obstructive pulmonary disease with (acute) exacerbation (principal); F17.210 Nicotine dependence, cigarettes, uncomplicated; Z99.89 Dependence on other enabling machines and devices
CPT/HCPCS: 36415; 71045; 80048; 85025; 87636; 94640; 96374